=== PATIENT | female | born 1930 | race Caucasian/White ===

== ENCOUNTER 2016-06-23 17:17 | Observation (INO) | payer MEDICARE, OTHER ==
[~2016-06-23] VITALS: Ht 154.9 cm; Wt 59.2 kg
[2016-06-23] VITALS (13 sets, daily range): BP systolic 65–146; BP diastolic 52–79; PULSE 104–134; RESP 16–18; TEMP 98.1; O2SAT 92–98
[~2016-06-23 17:17] MED LIST: ALPR.25 PO; APIX2.5T PO; DOCU100T9 PO; ECOT81TA2 PO; FURO20 PO; KCL20 PO; LEVO.1 PO; METO50TA PO; MIRA33502 PO; MIRT15 PO; PROT40TA PO; SOTA80 PO; TRAM50 PO; ZOFR4TAB3 SL
[2016-06-23] MEDS ORDERED: RANI150T PO (17:44)
[2016-06-23] MEDS ORDERED: LEVO112T2 PO (17:44)
[2016-06-23] MEDS ORDERED: FURO1TAB60 PO (17:44)
[2016-06-23] MEDS ORDERED: APIX5TAB PO (17:44)
[2016-06-23] MEDS ORDERED: CART120C PO (17:44)
[2016-06-23] MEDS ORDERED: WELC625T2 PO (17:44)
[2016-06-23] MEDS ORDERED: POTA1TAB4 PO (17:44)
[2016-06-23] MEDS ORDERED: SODIUM CHLORID 0.9% 500 ML INJ 500 ML IV ONE ×2 (17:45→21:15)
[2016-06-23] MEDS ORDERED: SODIUM CHLORIDE 0.9% FLUSH 10 ML FLUSH IVF PRN (17:45)
[2016-06-23] MEDS ORDERED: DILTIAZEM HCL 25 MG/5 ML VIAL IV ONE ×2 (17:45→18:30)
[2016-06-23] MEDS ORDERED: ASPIRIN 81 MG CHEW TAB PO ONE (17:45)
--- NOTE | 2016-06-23 17:57 | PD ---
HPI Chief Complaint: Cardiac Complaint Time Seen by Provider: 17:28 Travel History International Travel<30 days: No Contact w/Intl Traveler<30days: No Traveled to known affect area: No History of Present Illness HPI Patient is an 85-year-old female with history of hypertension, hyperlipidemia, CHF, A. fib, hypothyroidism, presents to emergency room with complaints of not feeling well for the past month. Patient reports that over the past month, she has been feeling weak and tired, she did follow-up with her primary care doctor , Dr. Hua, and it was discussed with her that her thyroid medications may need to be adjusted, reports that he increased her dose of her thyroid medication. Patient reports that she still has not been feeling well, reports that she has been feeling weak and has been feeling short of breath on exertion. Patient reports that she has noticed nonproductive cough for the past few days, no fevers or chills. Reports that she has not been having any chest pain that she can think of, reports that the band of her bra feels tighter in her left chest and isn't sure if this is chest pain versus pain from her bra. Reports that she went to [facility]'s office yesterday as she was not feeling well and wanted a new ribbon inker as her ribbon inker is in [place] and she is transferring her care to [place]. Reports that she has seen Dr. Andersen in the past but didn't "gel well with him" so she is in the process of having her doctors changed to [facility]. Patient reports that she described her symptoms to the office ladies at [facility], reports that they told her to go to the emergency room for evaluation since her symptoms were significant. Patient reports that she felt fine yesterday but felt worse today and decided to come to the emergency room. Patient reports that overall, she feels weak and tired, denies chest pain but does report intermittent palpitations. Report shortness of breath only on exertion, reports nonproductive cough, no fevers or chills. PFSH Past Medical History Hx Anticoagulant Therapy: Yes Arthritis: Yes Asthma: No Atrial Fibrillation: Yes (flutter RVR) Depression: Yes Heart Rhythm Problems: Yes ( fib) Cancer: No Cardiovascular Problems: Yes High Cholesterol: Yes Chest Pain: No Congestive Heart Failure: Yes COPD: No Cerebrovascular Accident: No Coronary Artery Disease: Yes Diabetes: No Diminished Hearing: No Fibromyalgia: Yes Gastrointestinal Disorders: Yes (COLITIS, RECTAL MASS) GERD: Yes Glaucoma: No Genitourinary: Yes (retention) Headaches: Yes Hepatitis: No Hiatal Hernia: No Heparin Induced Thrombocytopen: No Hypertension: Yes Immune Disorder: No Implanted Vascular Access Dvce: No Kidney Stones: No Medical other: Yes (FIBROMYALGIA) Musculoskeletal: Yes (chronic back pain) Neurologic: No Psychiatric: No Reproductive: No Respiratory: No Immunizations Current: Yes Migraines: No Myocardial Infarction: No Renal Failure: No Seizures: No Sickle Cell Disease: No Sleep Apnea: No Thyroid Disease: Yes Ulcer: No Influenza Vaccination: Yes ?: Not Menopausal: Yes : 2 Para: 2 Past Surgical History Abdominal Surgery: No AICD: No Appendectomy: No Arteriovenous Shunt: No Cardiac Surgery: No Cholecystectomy: No Ear Surgery: No Endocrine Surgery: No Eye Surgery: Yes (cataracts removed giuseppe) Genitourinary Surgery: No Gynecologic Surgery: No Insulin Pump: No Joint Replacement: No Neurologic Surgery: No Oral Surgery: Yes (gingivitis) Pacemaker: No Thoracic Surgery: No Tonsillectomy: Yes Other Surgery: Yes (LIPOMA LEFT ARM) Social History Alcohol Use: Yes (OCCASIONALLY) Tobacco Use: No Substance Use: No Allergies-Medications (Allergen,Severity, Reaction): Coded Allergies: Digoxin (Verified Allergy, Severe, TOXIC, 07/30/15) Tetracycline (Verified Allergy, Intermediate, UNKNOWN, 07/30/15) Codeine (Verified Adverse Reaction, Intermediate, UPSET STOMACH, 07/30/15) Prednisone (Verified Adverse Reaction, Mild, Nausea/Vomiting, 07/30/15) Reported Meds & Prescriptions Reported Meds & Active Scripts Active Reported Ranitidine (Ranitidine HCl) 150 Mg Tab 150 Mg PO BID K-Tab (Potassium Chloride) 20 Meq Tab 20 Meq PO DAILY Levothyroxine (Levothyroxine Sodium) 112 Mcg Tab 112 Mcg PO DAILY Lasix (Furosemide) 40 Mg Tab 40 Mg PO BID Eliquis (Apixaban) 5 Mg Tab 5 Mg PO BID Welchol (Colesevelam HCl) 625 Mg Tab 1,875 Mg PO DAILY Cartia Xt (Diltiazem ER 24 HR) 120 Mg Caper 120 Mg PO DAILY Review of Systems General / Constitutional: No: Fever Eyes: No: Visual changes HENT: No: Headaches Cardiovascular: Positive: Palpitations, Irregular Rhythm, Dyspnea on exertion, No: Chest Pain or Discomfort Respiratory: Positive: Cough, Shortness of Breath Gastrointestinal: No: Abdominal Pain Genitourinary: No: Dysuria Musculoskeletal: No: Pain Skin: No Rash Neurologic: Positive: Weakness Psychiatric: No: Depression Endocrine: No: Polydipsia Hematologic/Lymphatic: No: Easy Bruising Physical Exam Narrative GENERAL: nad, nontoxic SKIN: Focused skin assessment warm/dry. HEAD: Atraumatic. Normocephalic. EYES: Pupils equal and round. No scleral icterus. No injection or drainage. ENT: No nasal bleeding or discharge. Mucous membranes pink and moist. NECK: Trachea midline. No JVD. CARDIOVASCULAR: tachycardic, Irregular rate and rhythm. No murmur appreciated. RESPIRATORY: No accessory muscle use. Clear to auscultation. Breath sounds equal bilaterally. GASTROINTESTINAL: Abdomen soft, non-tender, nondistended. Hepatic and splenic margins not palpable. MUSCULOSKELETAL: No obvious deformities. No clubbing. No cyanosis. No edema. NEUROLOGICAL: Awake and alert. No obvious cranial nerve deficits. Motor grossly within normal limits. Normal speech. PSYCHIATRIC: Appropriate mood and affect; insight and judgment normal. Data Data Last Documented VS Vital Signs Date Time Temp Pulse Resp B/P Pulse Ox O2 Delivery O2 Flow Rate FiO2 06/23/16 20:04 131 17 126/65 96 Room Air 06/23/16 17:36 98.1 Orders B-Type Natriuretic Peptide (06/23/16 17:44) Ckmb (Isoenzyme) Profile (06/23/16 17:44) Complete Blood Count With Diff (06/23/16 17:44) Comprehensive Metabolic Panel (06/23/16 17:44) Magnesium (Mg) (06/23/16 17:44) Prothrombin Time / Inr (Pt) (06/23/16 17:44) Act Partial Throm Time (Ptt) (06/23/16 17:44) Troponin I (06/23/16 17:44) Chest, Single Ap (06/23/16 17:44) Ecg Monitoring (06/23/16 17:44) Iv Access Insert/Monitor (06/23/16 17:44) Oximetry (06/23/16 17:44) Aspirin Chew (Aspirin Chew) (06/23/16 17:45) Sodium Chloride 0.9% Flush (Ns Flush) (06/23/16 17:45) Sodium Chlorid 0.9% 500 Ml Inj (Ns 500 M (06/23/16 17:45) Diltiazem Inj (Cardizem Inj) (06/23/16 17:45) Diltiazem Inj (Cardizem Inj) (06/23/16 18:30) CKMB (06/23/16 17:35) CKMB% (06/23/16 17:35) Vital Signs (Adult) Q15MX4,Q4H (06/23/16 18:39) Cardiac Rhythm STANTON.Q8H (06/23/16 18:39) ^ Notify Dr: Other (06/23/16 18:39) Diltiazem Inj (Cardizem Inj) (06/23/16 18:45) Influenzae A/B Antigen (06/23/16 19:20) Urinalysis - C+S If Indicated (06/23/16 19:27) Admit Order (Ed Use Only) (06/23/16 20:12) Labs Laboratory Tests Test 06/23/16 06/23/16 17:35 19:05 White Blood Count 15.4 TH/MM3 Red Blood Count 4.39 MIL/MM3 Hemoglobin 11.7 GM/DL Hematocrit 35.7 % Mean Corpuscular Volume 81.3 FL Mean Corpuscular Hemoglobin 26.6 PG Mean Corpuscular Hemoglobin 32.8 % Concent Red Cell Distribution Width 16.5 % Platelet Count 325 TH/MM3 Mean Platelet Volume 9.0 FL Neutrophils (%) (Auto) 57.2 % Lymphocytes (%) (Auto) 27.7 % Monocytes (%) (Auto) 8.6 % Eosinophils (%) (Auto) 2.3 % Basophils (%) (Auto) 4.2 % Neutrophils # (Auto) 8.8 TH/MM3 Lymphocytes # (Auto) 4.3 TH/MM3 Monocytes # (Auto) 1.3 TH/MM3 Eosinophils # (Auto) 0.4 TH/MM3 Basophils # (Auto) 0.6 TH/MM3 CBC Comment AUTO DIFF Differential Total Cells 100 Counted Neutrophils % (Manual) 65 % Lymphocytes % 25 % Monocytes % 6 % Eosinophils % 4 % Neutrophils # (Manual) 10.0 TH/MM3 Differential Comment FINAL DIFF MANUAL Platelet Estimate NORMAL Platelet Morphology Comment NORMAL Red Cell Morphology Comment NORMAL Prothrombin Time 10.9 SEC Prothromb Time International 1.0 RATIO Ratio Activated Partial 24.7 SEC Thromboplast Time Sodium Level 138 MEQ/L Potassium Level 4.2 MEQ/L Chloride Level 100 MEQ/L Carbon Dioxide Level 27.7 MEQ/L Anion Gap 10 MEQ/L Blood Urea Nitrogen 17 MG/DL Creatinine 1.00 MG/DL Estimat Glomerular Filtration 53 ML/MIN Rate Random Glucose 97 MG/DL Calcium Level 8.8 MG/DL Magnesium Level 2.5 MG/DL Total Bilirubin 0.4 MG/DL Aspartate Amino Transf 50 U/L (AST/SGOT) Alanine Aminotransferase 39 U/L (ALT/SGPT) Alkaline Phosphatase 107 U/L Total Creatine Kinase 117 U/L Creatine Kinase MB 1.7 NG/ML Troponin I LESS THAN 0.02 NG/ML B-Type Natriuretic Peptide 251 PG/ML Total Protein 7.7 GM/DL Albumin 3.7 GM/DL Urine Collection Type CLEAN CATCH Urine Color YELLOW Urine Turbidity MOD Urine pH 7.0 Urine Specific [place] 1.017 Urine Protein NEG mg/dL Urine Glucose (UA) NEG mg/dL Urine Ketones NEG mg/dL Urine Occult Blood NEG Urine Nitrite POS Urine Bilirubin NEG Urine Leukocyte Esterase SMALL Urine WBC 6-8 /hpf Urine Squamous Epithelial > 8 /hpf Cells Urine Bacteria MANY /hpf Urine Mucus OCC /lpf Microscopic Urinalysis Comment CULTURE INDICATED MDM Medical Decision Making Medical Screen Exam Complete: Yes Emergency Medical Condition: Yes Interpretation(s) EKG at 1721: A flutter at 1 34 bpm, QT/QTc 306/435, st- t wave changes Vital Signs Date Time Temp Pulse Resp B/P Pulse Ox O2 Delivery O2 Flow Rate FiO2 06/23/16 17:36 98.1 134 18 146/79 97 Differential Diagnosis A. fib with RVR, ACS, CHF exacerbation, pneumonia, hypothyroidism, UTI, electrolyte abnormality Narrative Course 85-year-old female who presents to emergency room with generalized complaints of not feeling well for the past month. Patient does have history of A. fib with RVR, she is currently taking diltiazem 120 mg which was changed January by her ribbon inker in [place]. Patient reports that prior to taking diltiazem, she was taking lisinopril, reports that she isn't sure why her ribbon inker changed her from lisinopril to dilatizem. Reports that this is when she really began to feel "not good." Reports that over the past month, she has been feeling more weak and tired, reports dyspnea on exertion. Reports nonproductive cough with no fevers or chills or no sick contacts. EKG in ER: aflutter at 134 - will rate control with IV cardizem Patient has been placed on a monitor and storage bin tender, labs as well as x-ray of the chest ordered. Plan to rate control patient and check her lab work and monitor her while in ER Patient with no response to Cardizem 15 mg (0.25mg/kg initial dose), Cardizem 20mg IV ordered for rate control CBC & BMP Diagram 06/23/16 17:35 Last Impressions Chest X-Ray 06/23/16 1744 Signed Impressions: Service Date/Time: Thursday, June 23, 2016 17:57 - CONCLUSION: No acute findings. Demetrio Whyte MD Critical Care Narrative Aggregate critical care time was 30 minutes. Time to perform other separately billable procedures was not included in the critical care time. My time did not include minutes spent treating any other patients simultaneously or on activities that did not directly contribute to the patient's treatment. The services I provided to this patient were to treat and/or prevent clinically significant deterioration that could result in: , decompensation, deterioration I provided critical care services requiring my management, as noted below: Chart data review, documentation time, medication orders and management, vital sign assessments/reviewing monitor data, ordering and reviewing lab tests, ordering and interpreting/reviewing x-rays and diagnostic studies, care of the patient and discussion of the patient with the admitting physicians. Physician Communication Physician Communication case reviewed with Dr. Valle Diagnosis Primary Impression: Atrial fibrillation with RVR Additional Impression: UTI (urinary tract infection) Qualified Code: N30.00 - Acute cystitis without hematuria Admitting Information Admitting Physician Requests: Admit Sherie Alvarenga DO Jun 23, 2016 17:57 Sherie Alvarenga DO Jun 23, 2016 17:57
[2016-06-23 18:02] LABS: AUTOMATED NEUTROPHIL # 8.8 TH/MM3 (1.8-7.7); BASOPHIL # 0.6 TH/MM3 (0-0.2); BASOPHIL % 4.2 % (0.0-2.0); EOSINOPHIL # 0.4 TH/MM3 (0-0.4); EOSINOPHIL % 2.3 % (0.0-4.0); HEMATOCRIT 35.7 % (35.0-46.0); LYMPH % 27.7 % (9.0-44.0); LYMPHOCYTE # 4.3 TH/MM3 (1.0-4.8); MEAN CELL VOLUME 81.3 FL (80.0-100.0); MEAN CORPUSCULAR HEMOGLOBIN 26.6 PG (27.0-34.0); MEAN CORPUSCULAR HGB CONC 32.8 % (32.0-36.0); MONO % 8.6 % (0.0-8.0); NEUT % 57.2 % (16.0-70.0); PLATELET COUNT 325 TH/MM3 (150-450); RED BLOOD COUNT 4.39 MIL/MM3 (4.00-5.30); RED CELL DISTRIBUTION WIDTH 16.5 % (11.6-17.2); WHITE BLOOD COUNT 15.4 TH/MM3 (4.0-11.0)
[2016-06-23 18:10] LABS: CHLORIDE 100 MEQ/L (98-107); POTASSIUM 4.2 MEQ/L (3.5-5.1); SODIUM (NA) 138 MEQ/L (136-145)
[2016-06-23 18:14] LABS: ANION GAP 10 MEQ/L (5-15); BICARBONATE 27.7 MEQ/L (21.0-32.0); BLOOD UREA NITROGEN 17 MG/DL (7-18); MAGNESIUM 2.5 MG/DL (1.5-2.5)
[2016-06-23 18:15] LABS: APTT (PATIENT) 24.7 SEC (24.3-30.1); PROTHROMBIN TIME - PATIENT 10.9 SEC (9.8-11.6)
[2016-06-23 18:17] LABS: ALT (GPT) 39 U/L (10-53); AST (GOT) 50 U/L (15-37); GLOMERULAR FILTRATION RATE 53 ML/MIN (>89)
[2016-06-23 18:19] LABS: TOTAL BILIRUBIN ADULT 0.4 MG/DL (0.2-1.0)
[2016-06-23 18:20] LABS: ALKALINE PHOSPHATASE 107 U/L (45-117); CREATINE KINASE 117 U/L (26-192)
[2016-06-23 18:22] LABS: HEMO FLAGS AUTO DIFF
[2016-06-23 18:32] LABS: CKMB 1.7 NG/ML (0.5-3.6)
[2016-06-23] MEDS ORDERED: DILTIAZEM INJ 125 MG in SODIUM CHLORIDE 0.9% INJ 100 ML IV SCH (18:45)
[2016-06-23 18:51] LABS: EOSINOPHILS 4 % (0-4); POLYS (SEG NEUTROPHILS) 65 % (16-70); WBC DIFF SAMPLE 100
[2016-06-23 18:52] LABS: PLATELET ESTIMATE SMEAR NORMAL (NORMAL); PLATELET MORPHOLOGY NORMAL (NORMAL); SCAN/DIFF FINAL DIFF MANUAL
--- NOTE | 2016-06-23 19:01 | RADHPO ---
EXAM DATE/TIME: 06/23/2016 17:57 [facility] COMPARISON: CHEST SINGLE AP, June 18, 2015, 13:36. INDICATIONS : Chest pressure. Short of breath. MEDICAL HISTORY : Congestive heart failure. Hypertension. A-fib. Coronary artery disease. SURGICAL HISTORY : None. ENCOUNTER: Initial ACUITY: 1 day PAIN SCORE: 2/10 LOCATION: Bilateral chest FINDINGS: A single view of the chest demonstrates the lungs to be symmetrically aerated without evidence of mas s, infiltrate or effusion. The cardiomediastinal contours are unremarkable. Vertebroplasty cement i n the upper lumbar vertebral body.. CONCLUSION: No acute findings. Demetrio Whyte MD on June 23, 2016 at 18:59 Board Certified Radiologist. This report was verified electronically.
[2016-06-23 20:06] LABS: BLOOD, URINE NEG (NEG); GLUCOSE,URINE NEG (NEG); KETONE, URINE NEG (NEG)
[2016-06-23 20:16] LABS: NITRITE,URINE POS (NEG)
[2016-06-23 20:18] LABS: METHOD OF COLLECTION CLEAN CATCH; URINE COLOR YELLOW (YELLW/STRAW)
[2016-06-23 20:19] LABS: BACTERIA, URINE MANY /hpf; SQUAMOUS EPITHELIAL CELL URINE > 8 /hpf (0-5)
[2016-06-23 20:20] LABS: MUCUS URINE OCC /lpf (OCC)
[2016-06-23 20:21] LABS: COMMENT (UR) CULTURE INDICATED; CULTURE IF INDICATED CULTURE INDICATED
[2016-06-23] MEDS ORDERED: NALOXONE HCL 0.4 MG/ML AMP IV PRN (20:30)
[2016-06-23] MEDS ORDERED: cefTRIAXone INJ 1,000 MG in SODIUM CHLORIDE 0.9% INJ 100 ML IV ONE (20:30)
[2016-06-23] MEDS ORDERED: SODIUM CHLORIDE 0.9% FLUSH 10 ML FLUSH IV FLUSH PRN (20:30)
[2016-06-23] MEDS ORDERED: ENOXAPARIN SODIUM 40 MG/0.4 ML SYRINGE SQ SCH (20:30)
[2016-06-23] MEDS ORDERED: ACETAMINOPHEN 325 MG TAB PO PRN (20:30)
[2016-06-23] MEDS: FUROSEMIDE 40 MG TAB PO SCH (21:00)
[2016-06-23] MEDS ORDERED: METOPROLOL TARTRATE 5 MG/5 ML VIAL IV PUSH ONE ×2 (21:15→21:45)
[2016-06-23] MEDS: FAMOTIDINE 20 MG TAB PO SCH (21:43)
[2016-06-23] MEDS: SODIUM CHLORIDE 0.9% FLUSH 10 ML FLUSH IV FLUSH SCH (21:47)
[2016-06-23] MEDS: APIXABAN 5 MG TABLET PO SCH (21:52)
[2016-06-23] MEDS ORDERED: AMIODARONE INJ 900 MG in D5W 500 ML (EXCEL BAG) 482 ML IV SCH (22:15)
[2016-06-23] MEDS ORDERED: AMIODARONE INJ 300 MG in DEXTROSE 5% IN WATER 100ML INJ 97 ML IV ONE ×2 (22:15)
--- NOTE | 2016-06-23 23:37 | EKG ---
Date Performed: 06/23/2016 Time Performed: 21:12:34 PTAGE: 85 years EKG: Possible atrial flutter with rapid ventricular response. Right bundle branch block LVH with secondary repolarization abnormality Abnormal ECG PREVIOUS TRACING : 06/23/2016 17.21 DOCTOR: Leo Pickard Interpretating Date/Time 06/23/2016 23:37:02
--- NOTE | 2016-06-23 23:37 | EKG ---
Date Performed: 06/23/2016 Time Performed: 21:32:36 PTAGE: 85 years EKG: CONSIDER ACUTE ST ELEVATION [place] Atrial flutter with rapid ventricular response with 2:1 A-V block. LVH with secondary repolarization abnormality Inferior ST elevation, CONSIDER ACUTE IN FARCT Abnormal ECG PREVIOUS TRACING : 06/23/2016 21.12 DOCTOR: Leo Pickard Interpretating Date/Time 06/23/2016 23:35:27
--- NOTE | 2016-06-23 23:54 | EKG ---
Date Performed: 06/23/2016 Time Performed: 17:21:40 PTAGE: 85 years EKG: Atrial flutter with rapid ventricular response with 2:1 A-V block. Left ventricular hypertr ophy Extensive ST-T changes are probably due to ventricular hypertrophy Abnormal ECG PREVIOUS TRACING : 06/19/2015 05.49 DOCTOR: Leo Pickard Interpretating Date/Time 06/23/2016 23:53:47
[2016-06-24] VITALS (27 sets, daily range): BP systolic 87–108; BP diastolic 46–80; PULSE 104–122; RESP 16–18; TEMP 97.3–98.8; O2SAT 93–100
[2016-06-24] MEDS: AMIODARONE INJ 450 MG in D5W (EXCEL BAG) 241 ML IV SCH ×2 (04:58→19:59)
[2016-06-24 06:57] LABS: BICARBONATE 22.5 MEQ/L (21.0-32.0); POTASSIUM 3.9 MEQ/L (3.5-5.1)
[2016-06-24 07:13] LABS: AUTOMATED NEUTROPHIL # 6.2 TH/MM3 (1.8-7.7); BASOPHIL # 0.1 TH/MM3 (0-0.2); BASOPHIL % 1.1 % (0.0-2.0); EOSINOPHIL # 0.1 TH/MM3 (0-0.4); EOSINOPHIL % 1.3 % (0.0-4.0); HEMATOCRIT 32.5 % (35.0-46.0); HEMO FLAGS DIFF FINAL; LYMPH % 21.6 % (9.0-44.0); MEAN CELL VOLUME 81.5 FL (80.0-100.0); MEAN CORPUSCULAR HEMOGLOBIN 26.3 PG (27.0-34.0); MEAN CORPUSCULAR HGB CONC 32.3 % (32.0-36.0); MONO % 9.3 % (0.0-8.0); NEUT % 66.7 % (16.0-70.0); PLATELET COUNT 348 TH/MM3 (150-450); RED BLOOD COUNT 3.98 MIL/MM3 (4.00-5.30); RED CELL DISTRIBUTION WIDTH 17.6 % (11.6-17.2); WHITE BLOOD COUNT 9.2 TH/MM3 (4.0-11.0)
[2016-06-24] MEDS: LEVOTHYROXINE SODIUM 112 MCG TAB PO SCH (07:30)
[2016-06-24] MEDS: FUROSEMIDE 40 MG TAB PO SCH ×2 (08:37→20:26)
[2016-06-24] MEDS: APIXABAN 5 MG TABLET PO SCH (08:38)
[2016-06-24] MEDS: SODIUM CHLORIDE 0.9% FLUSH 10 ML FLUSH IV FLUSH SCH ×2 (08:38→20:25)
[2016-06-24] MEDS: FAMOTIDINE 20 MG TAB PO SCH ×2 (08:38→20:26)
[2016-06-24] MEDS: POTASSIUM CHLORIDE 20 MEQ CONTROLLED RELEASE TAB PO SCH (08:38)
--- NOTE | 2016-06-24 11:09 | HHI.HP ---
HPI Service [facility] Primary [facility] Physician Malachi Hua MD Admission Diagnosis Afib with RVR Diagnoses: Chief Complaint: Fatigue Shortness of breath Chest pain (Cherelle Montilla) Travel History International Travel<30 Days: No Contact w/Intl Traveler <30 Da: No Traveled to Known Affected Are: No (Cherelle Montilla) History of Present Illness This is an 85-year-old elderly female with significant PMHx of CHF, afibrillation, HTN. Patient presented to the emergency room with complaints of generalized malaise, indicates she has felt poorly very fatigued. She went to see her primary care on 2 different occasions, the first time in March and then in April. Initially Dr. Hua that it was due to her thyroid and adjusted her Synthroid from 100 g to 112. Prior to this visit, patient had followed up with her mail distributor in [place] and he had started her on diltiazem. Patient believes that the diltiazem is what's making her weak. She has noted shortness of breath on exertion, she has felt some chest discomfort as if her bra feels a little tighter. She has not felt any palpitations. She has felt more tired than usual, denies any fever, no chills. No cough, no sputum production. She has been checking her blood pressure at home and has noted that it was running around 120s. However her noted that her heart rate was running up to 130s. She doesn't have a formal mail distributor in the area but approximately a year ago she did see Dr. Andersen while she was in the hospital but never followed up with him as OP. Most recently she had gone to the [facility] and was trying to establish herself with one of their physicians and had filled out paperwork to have her records sent from [place]. In the emergency room, patient was evaluated and EKG done showed a flutter at 131 heart rate. Patient was given Lopressor 5 mg IV [address] Graham who was covering for the [facility] was contacted and requested amiodarone 300 mg IV bolus along with amiodarone drip and Cardizem drip. Patient was transferred from the [facility] to the [facility]. Patient was noted with drop in blood pressure to 88/50 therefore the Cardizem drip was held. Patient did receive a fluid bolus in the emergency room as her blood pressure continued to drop to 71/45. Heart rate is sinus but still tachycardic down to 119. She is currently on amiodarone drip. Laboratory workup was completed, significant for WBC of 15.4 which is now down to 9.2. Basic metabolic panel was unremarkable. B natruretic peptide was 251. Urinalysis was positive for nitrates, leukocyte esterase and bacteria. Culture is pending. Patient received Rocephin. Patient is admitted for further evaluation and treatment. (Cherelle Montilla) Review of Systems Constitutional: COMPLAINS OF: Fatigue, DENIES: Diaphoretic episodes, Fever, Weight gain, Weight loss, Chills, Dizziness, Change in appetite, Night Sweats Endocrine: DENIES: Abnorml menstrual pattern, Heat/cold intolerance, Polydipsia , Polyuria, Polyphagia Eyes: DENIES: Blurred vision, Diplopia, Eye inflammation, Eye pain, Vision loss , Photosensitivity, Double Vision Ears, nose, mouth, throat: DENIES: Tinnitus, Hearing loss, Vertigo, Nasal discharge, Oral lesions, Throat pain, Hoarseness, Ear Pain, Running Nose, Epistaxis, Sinus Pain, Toothache, Odynophagia Respiratory: DENIES: Apneas, Cough, Snoring, Wheezing, Hemoptysis, Sputum production, Shortness of breath Cardiovascular: COMPLAINS OF: Chest pain, Dyspnea on Exertion, DENIES: Palpitations, Syncope, PND, Lower Extremity Edema, Orthopnea, Claudication Gastrointestinal: COMPLAINS OF: Constipation, DENIES: Abdominal pain, Black stools, Bloody stools, Diarrhea, Nausea, Vomiting, Difficulty Swallowing, Anorexia Genitourinary: DENIES: Abnormal vaginal bleeding, Dysmenorrhea, Dyspareunia, Sexual dysfunction, Urinary frequency, Urinary incontinence, Urgency, Hematuria , Dysuria, Nocturia, Vaginal discharge Musculoskeletal: DENIES: Joint pain, Muscle aches, Stiffness, Joint Swelling, Back pain, Neck pain Integumentary: DENIES: Abnormal pigmentation, Pruritus, Rash, Nail changes, Breast masses, Breast skin changes, Nipple discharge Hematologic/lymphatic: DENIES: Bruising, Lymphadenopathy Immunologic/allergic: DENIES: Eczema, Urticaria Neurologic: DENIES: Abnormal gait, Headache, Localized weakness, Paresthesias, Seizures, Speech Problems, Tremor, Poor Balance Psychiatric: DENIES: Anxiety, Confusion, Mood changes, Depression, Hallucinations, Agitation, Suicidal Ideation, Homicidal Ideation, Delusions ( Cherelle Montilla) Past Family Social History Past Medical History Atrial fibrillation Acute kidney injury in the past CHF Chronic anticoagulation Colitis Constipation Chronic back pain Hypothyroid Hyperlipidemia Hypertension GERD Past Surgical History Kyphoplasty 2, lipoma removed from arm, biopsy of right breast benign, tonsillectomy as a child Cataract surgery Reported Medications Reported Meds & Active Scripts Active Reported Ranitidine (Ranitidine HCl) 150 Mg Tab 150 Mg PO BID K-Tab (Potassium Chloride) 20 Meq Tab 20 Meq PO DAILY Levothyroxine (Levothyroxine Sodium) 112 Mcg Tab 112 Mcg PO DAILY Lasix (Furosemide) 40 Mg Tab 40 Mg PO BID Eliquis (Apixaban) 5 Mg Tab 5 Mg PO BID Welchol (Colesevelam HCl) 625 Mg Tab 1,875 Mg PO DAILY Cartia Xt (Diltiazem ER 24 HR) 120 Mg Caper 120 Mg PO DAILY (Cherelle Montilla) Allergies: Coded Allergies: Digoxin (Verified Allergy, Severe, TOXIC, 07/30/15) Tetracycline (Verified Allergy, Intermediate, UNKNOWN, 07/30/15) Codeine (Verified Adverse Reaction, Intermediate, UPSET STOMACH, 07/30/15) Prednisone (Verified Adverse Reaction, Mild, Nausea/Vomiting, 07/30/15) Active Ordered Medications Inpatient Medications Acetaminophen (Tylenol) 650 mg Q4H PRN PO TEMP > 100.4; Start 06/23/16 at 20:30 Amiodarone HCl 300 mg/Dextrose 103 ml @ 100 mls/hr ONCE ONCE IV Last administered on 06/23/16 22:40; Start 06/23/16 at 22:15; Stop 06/23/16 at 23:16; Status DC Amiodarone HCl 900 mg/Dextrose 500 ml @ 0 mls/hr CONTINUOUS IV ; Start 06/23/16 at 22:15; Stop 06/24/16 at 04:35; Status DC Amiodarone HCl/ Dextrose (Cordarone Inj/ D5W (Sheldon) Inj) 250 ml @ 0 mls/hr CONTINUOUS IV Last administered on 06/24/16 04:58; Start 06/24/16 at 05:00 Apixaban (Eliquis) 5 mg BID PO Last administered on 06/24/16 08:38; Start at 21:00 Aspirin (Aspirin Chew) 162 mg ONCE ONCE PO Last administered on 06/23/16 18:03 ; Start 06/23/16 at 17:45; Stop 06/23/16 at 17:46; Status DC Ceftriaxone Sodium/Sodium Chloride (Rocephin Inj/NS Inj) 100 ml @ 200 mls/hr ONCE ONCE IV Last administered on 06/23/16 22:50; Start 06/23/16 at 20:30; Stop 06/23/16 at 20:59; Status DC Colesevelam HCl (Welchol) 1,875 mg DAILY PO ; Start 06/24/16 at 09:00 Diltiazem HCl (Cardizem Inj) 15 mg ONCE ONCE IV Last administered on 06/23/16 18:04; Start 06/23/16 at 17:45; Stop 06/23/16 at 17:46; Status DC Diltiazem HCl 125 mg/Sodium Chloride 125 ml @ 0 mls/hr TITRATE IV Last administered on 06/23/16 20:02; Start 06/23/16 at 18:45 Diltiazem HCl 20 mg 20 mg ONCE ONCE IV Last administered on 06/23/16 18:27; Start 06/23/16 at 18:30; Stop 06/23/16 at 18:31; Status DC Enoxaparin Sodium (Lovenox Inj) 40 mg Q24H SQ ; Start 06/23/16 at 20:30; Stop 06/23/16 at 20:30; Status DC Famotidine 20 mg 20 mg BID PO Last administered on 06/24/16 08:38; Start at 21:00 Furosemide (Lasix) 40 mg BID PO Last administered on 06/24/16 08:37; Start 06/23 at 21:00 Levothyroxine Sodium (Synthroid) 112 mcg DAILY@06 PO Last administered on 07:30; Start 06/24/16 at 06:00 Metoprolol Tartrate 5 mg 5 mg ONCE ONCE IV PUSH Last administered on 06/23/16 21:46; Start 06/23/16 at 21:45; Stop 06/23/16 at 21:46; Status DC Naloxone HCl (Narcan Inj) 0.4 mg UNSCH PRN IV SEE LABEL COMMENTS; Start at 20:30 Ondansetron HCl (Zofran Inj) 4 mg Q6H PRN IVP NAUSEA OR VOMITING; Start at 20:30 Potassium Chloride (KCl) 20 meq DAILY PO Last administered on 06/24/16 08:38; Start 06/24/16 at 09:00 Sodium Chloride (NS 500 ml Inj) 500 ml @ 500 mls/hr BOLUS ONCE IV Last administered on 06/23/16 21:19; Start 06/23/16 at 21:15; Stop 06/23/16 at 22:14; Status DC Sodium Chloride (NS Flush) 2 ml BID IV FLUSH Last administered on 06/24/16 08: 38; Start 06/23/16 at 21:00 Family History Father at 79 of lung cancer Mother at 45 of CVA Brother also diagnosed with atrial fibrillation Social History Patient is a part-time resident of [place], lives in [place]. Lives at home with her Denies tobacco use or illicit drug use Reports occasional glass of wine 2-3 times per month (Cherelle Montilla) Physical Exam Vital Signs Vital Signs Date Time Temp Pulse Resp B/P Pulse Ox O2 Delivery O2 Flow Rate FiO2 06/24/16 08:15 97.7 120 18 89/66 99 06/24/16 07:01 120 06/24/16 06:00 118 06/24/16 05:00 120 06/24/16 04:00 120 06/24/16 03:00 99/80 06/24/16 03:00 120 06/24/16 03:00 121 06/24/16 02:15 122 99/80 99 06/24/16 01:45 117 16 108/59 06/24/16 01:06 98.8 119 16 106/64 98 Nasal Cannula 06/24/16 00:29 104 18 87/46 98 Nasal Cannula 2 06/23/16 23:20 112 16 71/53 98 Nasal Cannula 06/23/16 23:16 120 16 98/56 98 Nasal Cannula 06/23/16 23:10 114 18 65/53 97 Nasal Cannula 06/23/16 23:10 104 18 66/54 96 Nasal Cannula 06/23/16 23:00 121 17 99/53 92 Room Air 06/23/16 22:40 127 18 88/52 94 Room Air 06/23/16 21:54 128 17 118/58 95 Room Air 06/23/16 21:40 129 16 118/66 95 Room Air 06/23/16 21:20 Room Air 06/23/16 21:20 131 17 123/60 95 Room Air 06/23/16 20:04 131 17 126/65 96 Room Air 06/23/16 19:00 Room Air 06/23/16 18:31 130 18 101/57 95 Room Air 06/23/16 18:13 132 18 124/68 95 Room Air 06/23/16 18:12 18 97 Room Air 06/23/16 17:36 98.1 134 18 146/79 97 Physical Exam GENERAL: This is a well-nourished, well-developed patient, in no apparent distress. SKIN: No rashes, ecchymoses or lesions. Cool and dry. HEAD: Atraumatic. Normocephalic. No temporal or scalp tenderness. EYES: Pupils equal round and reactive. Extraocular motions intact. No scleral icterus. No injection or drainage. ENT: Nose without bleeding, purulent drainage or septal hematoma. Throat without erythema, tonsillar hypertrophy or exudate. Uvula midline. Airway patent. NECK: Trachea midline. No JVD or lymphadenopathy. Supple, nontender, no meningeal signs. CARDIOVASCULAR: S1 and S2, sinus tachycardia. No murmurs, no rubs, no gallops. RESPIRATORY: Clear to auscultation. Breath sounds equal bilaterally. No wheezes , rales, or rhonchi. GASTROINTESTINAL: Abdomen soft, non-tender, nondistended. No hepato-splenomegaly , or palpable masses. No guarding. MUSCULOSKELETAL: Extremities without clubbing, cyanosis, or edema. Pedal pulses 2+ bilateral No joint tenderness, effusion, or edema noted. No calf tenderness. Negative Homans sign bilaterally. NEUROLOGICAL: Awake and alert. Cranial nerves II through XII intact. Motor and sensory grossly within normal limits. Five out of 5 muscle strength in all muscle groups. Normal speech. Laboratory Laboratory Tests Test 06/23/16 06/23/16 06/23/16 06/24/16 17:35 19:05 22:12 05:15 White Blood Count 15.4 9.2 Red Blood Count 4.39 3.98 Hemoglobin 11.7 10.5 Hematocrit 35.7 32.5 Mean Corpuscular Volume 81.3 81.5 Mean Corpuscular Hemoglobin 26.6 26.3 Mean Corpuscular Hemoglobin 32.8 32.3 Concent Red Cell Distribution Width 16.5 17.6 Platelet Count 325 348 Mean Platelet Volume 9.0 8.9 Neutrophils (%) (Auto) 57.2 66.7 Lymphocytes (%) (Auto) 27.7 21.6 Monocytes (%) (Auto) 8.6 9.3 Eosinophils (%) (Auto) 2.3 1.3 Basophils (%) (Auto) 4.2 1.1 Neutrophils # (Auto) 8.8 6.2 Lymphocytes # (Auto) 4.3 2.0 Monocytes # (Auto) 1.3 0.9 Eosinophils # (Auto) 0.4 0.1 Basophils # (Auto) 0.6 0.1 CBC Comment AUTO DIFF DIFF FINAL Differential Total Cells 100 Counted Neutrophils % (Manual) 65 Lymphocytes % 25 Monocytes % 6 Eosinophils % 4 Neutrophils # (Manual) 10.0 Differential Comment FINAL DIFF MANUAL Platelet Estimate NORMAL Platelet Morphology Comment NORMAL Red Cell Morphology Comment NORMAL Prothrombin Time 10.9 Prothromb Time International 1.0 Ratio Activated Partial 24.7 Thromboplast Time Sodium Level 138 139 Potassium Level 4.2 3.9 Chloride Level 100 107 Carbon Dioxide Level 27.7 22.5 Anion Gap 10 10 Blood Urea Nitrogen 17 16 Creatinine 1.00 0.88 Estimat Glomerular Filtration 53 61 Rate Random Glucose 97 99 Calcium Level 8.8 7.9 Magnesium Level 2.5 Total Bilirubin 0.4 Aspartate Amino Transf 50 (AST/SGOT) Alanine Aminotransferase 39 (ALT/SGPT) Alkaline Phosphatase 107 Total Creatine Kinase 117 66 Creatine Kinase MB 1.7 Troponin I LESS THAN 0.02 0.02 B-Type Natriuretic Peptide 251 Total Protein 7.7 Albumin 3.7 Urine Collection Type CLEAN CATCH Urine Color YELLOW Urine Turbidity MOD Urine pH 7.0 Urine Specific [place] 1.017 Urine Protein NEG Urine Glucose (UA) NEG Urine Ketones NEG Urine Occult Blood NEG Urine Nitrite POS Urine Bilirubin NEG Urine Leukocyte Esterase SMALL Urine WBC 6-8 Urine Squamous Epithelial > 8 Cells Urine Bacteria MANY Urine Mucus OCC Microscopic Urinalysis Comment CULTURE INDICATED Date/Time Procedure Status Source Growth 06/23/16 21:00 Aerobic Blood Culture Received Blood Peripheral Pending 06/23/16 21:00 Anaerobic Blood Culture Received Blood Peripheral Pending 06/23/16 20:00 Influenza Types A,B Antigen (BERNIE) - Final Complete Nasal Aspirate NEGATIVE FOR FLU A AND B ANTIGEN.... 06/23/16 19:05 Urine Culture - Preliminary Resulted Urine Clean Catch Gram Negative Brodie (Cherelle Montilla) Result Diagram: 06/24/16 0515 06/24/16 0515 Imaging Last Impressions Chest X-Ray 06/23/164 Signed Impressions: Service Date/Time: Saturday, June 23, 2016 17:57 - CONCLUSION: No acute findings. Demetrio Whyte MD (Cherelle Motnilla) Assessment and Plan Problem List: (1) Atrial fibrillation with RVR (2) UTI (urinary tract infection) (3) HTN (hypertension) (4) CKD (chronic kidney disease) (5) Anxiety disorder, unspecified (6) Fibromyalgia (7) Hypothyroidism (8) Leukocytosis (9) Chronic CHF Assessment and Plan Admit to Dr. Valle 85-year-old elderly female with significant past medical history hypertension, CHF, chronic A. fib. Presented to the emergency room complaining of feeling more fatigued, chest tightness with mild shortness of breath. Found with A. fib , a flutter with RVR. -Consult cardiology Continuous cardiac telemetry Continue with amiodarone drip Continue with Eliquis Leukocytosis, etiology unclear, possibly secondary to stress response Monitor CBC Monitor for any fever Chronic CHF, stable. Patient does not appear to be in fluid overload, lungs are clear. Continue with Lasix 40 mg by mouth twice a day Monitor intake and output Hypothyroid Continue with home medications Fibromyalgia, stable Continue to monitor Chronic kidney disease, stage III, stable Avoid nephrotoxic agents Monitor renal function Home medications reviewed, initiated as indicated Pepcid for GI prophylaxis Eliquis for DVT prophylaxis Plan of care has been discussed with the patient, attending and registered nurse. Further management of the patient will be dependent hospital course This patient was seen by myself and Dr. 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 In the case of services not specified as inpatient-only, they are appropriately provided as inpatient services in accordance with the 2-midnight benchmark. Estimated LOS (days): 2 2 days is the estimated time the patient will need to remain in the hospital, assuming treatment plan goals are met and no additional complications. Post-Hospital Plan: Home Health (Cherelle Montilla) Problem Qualifiers (1) UTI (urinary tract infection): Qualified Code: N30.00 - Acute cystitis without hematuria (2) HTN (hypertension): Qualified Code: I10 - Essential hypertension (3) CKD (chronic kidney disease): Qualified Code: N18.3 - CKD (chronic kidney disease), stage 3 (moderate) (4) Hypothyroidism: Qualified Code: E03.9 - Hypothyroidism, unspecified type (5) Leukocytosis: Qualified Code: D72.829 - Leukocytosis, unspecified type (6) Chronic CHF: Qualified Code: I50.9 - Chronic congestive heart failure, unspecified congestive heart failure type Cherelle Montilla Jun 24, 2016 11:09 Coy Valle MD Jun 24, 2016 19:46
[2016-06-24] MEDS: COLESEVELAM HCL 625 MG TAB PO SCH (11:27)
[2016-06-24] MEDS: ONDANSETRON HCL 4 MG/2 ML VIAL IVP PRN ×2 (12:21→21:47)
--- NOTE | 2016-06-24 22:00 | MB ---
cc: URSZULA DOTY M.D. DATE OF CONSULTATION 06/24/2016 REASON FOR CONSULTATION Atrial flutter with rapid ventricular response unable to control with medication. I was called yesterday by Dr. Alvarenga about Mrs. Romo. She is an 85-year-old female with history of hyperlipidemia, high blood pressure, atrial flutter, CHF, hypothyroidism that medication was managed by primary doctor. She has seen a previous doctor and then new . She was transferring to [place] for further management. She saw in the past Dr. Andersen. She was on Cardizem and digoxin. She went to the emergency room with atrial flutter with rapid ventricular response. Heart rate unable to control with medication. She was put on digoxin, beta yimi and Cardizem. At last amiodarone was added. Despite that the heart rate was around 130 beats per minute. I was consulted for further evaluation and management. The chart was reviewed. The patient was evaluated. ALLERGIES DIGOXIN, TETRACYCLINE, CODEINE AND PREDNISONE. SOCIAL HISTORY She denies smoking. Drinks occasionally. FAMILY HISTORY Noncontributory to her current medical condition. MEDICATIONS At home she was on: 1. Ranitidine. 2. Levoxyl. 3. Lasix. 4. Eliquis. 5. Cartia. Currently in the hospital: Amiodarone was added as well as Cardizem IV. REVIEW OF SYSTEMS Currently she refers shortness of breath and palpitation. No chest pain or chest discomfort. She had a stress test around 10 years ago that was negative. PHYSICAL EXAMINATION GENERAL: Alert and fully oriented. VITAL SIGNS: Blood pressure is 89/66, pulse on the telemetry is 130 currently. CARDIOVASCULAR: S1-S2. Tachycardic. ABDOMEN: Soft. No mass. No bruits. EXTREMITIES: No edema. Electrocardiogram showed classic atrial flutter. LABORATORY DATA Hemoglobin is 10.5, white blood cell 9.2. Potassium 3.9, creatinine 0.88. Troponin less than 0.02. INR 1.0. ASSESSMENT AND RECOMMENDATIONS Mrs. Romo's heart rate is very difficult to control. She is in atrial flutter. She failed multiple medications. There is an issue about the thyroid function. Apparently her thyroid was modified by the primary doctor. At this point I am going to order also a TSH. I am going to stop the Eliquis. Electrophysiology study and atrial flutter ablation discussed extensively with her. Risks include pneumothorax, cardiac perforation, stroke and even . She understood and agreed to proceed. Last Eliquis dose was this morning. That means it will be tomorrow afternoon before we can proceed with ablation. Also a 2-D echo will be ordered to evaluate wall motion and valvular function. MD EDDIE Akbar/SHIRAZ /12:30 PM /9:43 PM
[2016-06-25] VITALS (24 sets, daily range): BP systolic 102–148; BP diastolic 61–87; PULSE 75–122; RESP 16–18; TEMP 97.6–98.1; O2SAT 94–98
[2016-06-25] MEDS: LEVOTHYROXINE SODIUM 112 MCG TAB PO SCH (05:32)
[2016-06-25] MEDS: cefTRIAXone INJ 1,000 MG in SODIUM CHLORIDE 0.9% INJ 100 ML IV SCH (08:19)
[2016-06-25] MEDS: FAMOTIDINE 20 MG TAB PO SCH ×2 (08:20→21:48)
[2016-06-25] MEDS: COLESEVELAM HCL 625 MG TAB PO SCH (08:20)
[2016-06-25] MEDS: POTASSIUM CHLORIDE 20 MEQ CONTROLLED RELEASE TAB PO SCH (08:20)
[2016-06-25] MEDS: SODIUM CHLORIDE 0.9% FLUSH 10 ML FLUSH IV FLUSH SCH ×2 (08:21→21:48)
[2016-06-25] MEDS: FUROSEMIDE 40 MG TAB PO SCH ×2 (08:21→21:00)
--- NOTE | 2016-06-25 10:36 | HHI.PR ---
Subjective Interval History awake alert sitting in bed appears comfortable still tachycardic awaiting procedure this afternoon no family at bed side Vitals/Results Intake & Output 06/24/16 06/24/16 06/25/16 15:00 23:00 07:00 Intake Total 565 ml 240 ml Output Total 500 ml Balance 565 ml -260 ml Intake Oral 360 ml 240 ml IV Total 205 ml Output Urine Total 500 ml # Voids 3 # Bowel Movements 1 1 Vital Signs Vital Signs Date Time Temp Pulse Resp B/P Pulse Ox O2 Delivery O2 Flow Rate FiO2 06/25/16 09:01 120 06/25/16 08:01 98.0 120 18 135/81 97 06/25/16 08:00 118 06/25/16 07:00 109 06/25/16 06:26 116 06/25/16 05:00 116 06/25/16 04:00 118 06/25/16 03:00 97.6 119 102/76 98 06/25/16 03:00 109 06/25/16 02:00 118 06/25/16 01:00 118 06/25/16 00:00 116 06/24/16 23:00 97.3 117 107/67 93 06/24/16 23:00 117 06/24/16 22:00 118 06/24/16 21:00 114 06/24/16 20:00 118 06/24/16 19:00 119 06/24/16 19:00 97.8 119 107/80 100 06/24/16 17:01 118 06/24/16 16:01 116 06/24/16 15:30 97.7 118 18 97/71 95 06/24/16 15:00 120 06/24/16 14:01 119 06/24/16 13:00 120 06/24/16 12:00 120 06/24/16 11:15 97.8 118 18 96/67 97 06/24/16 11:00 120 CBC/BMP: 06/24/16 0515 06/24/16 0515 Physical Exam General General Appearance: Well Developed, Well Nourished, No Acute Distress Eyes Eye Exam: Pupils Equal, Pupils Reactive Throat Throat Exam: Oral Mucosa [place] & Moist Neck Neck Exam: Neck Supple, Trachea Midline Pulmonary Resp Exam: Clear Bilaterally, Breath Sounds Equal, No Distress Cardiology CV Exam: Regular, Tachycardia Gastrointestinal/Abdomen GI Exam: Soft, Non-Tender, Bowel Sounds Present Musculoskeletal MS Exam: Joints Intact, Normal Gait, Normal Tone, Good Strength Integumentary Skin Exam: Clear, Warm, Dry, Intact Extremeties Extremities Exam: No Edema Neurologic Neuro Exam: Alert, Awake, Oriented Psychiatric Psych Exam: Appropriate Responses Assessment/Plan Assessment/Plan Assessment and Plan Assessment and Plan Problem List: (1) Atrial fibrillation with RVR (2) UTI (urinary tract infection) (3) HTN (hypertension) (4) CKD (chronic kidney disease) (5) Anxiety disorder, unspecified (6) Fibromyalgia (7) Hypothyroidism (8) Leukocytosis (9) Chronic CHF Assessment and Plan Admit to Dr. Valle 85-year-old elderly female with significant past medical history hypertension, CHF, chronic A. fib. Presented to the emergency room complaining of feeling more fatigued, chest tightness with mild shortness of breath. Found with A. fib , a flutter with RVR. Appreciate Cardiology input, plan for ablation today, Eliquis held Continuous cardiac telemetry Continue with amiodarone drip Still tachycardic Leukocytosis, ? likely sec to UTI Culture growing GNR on Rocephin leucocytosis resolved Chronic CHF, stable. Patient does not appear to be in fluid overload, lungs are clear. Continue with Lasix 40 mg by mouth twice a day Monitor intake and output Hypothyroid Continue with home medications Fibromyalgia, stable Continue to monitor Chronic kidney disease, stage III, stable Avoid nephrotoxic agents Monitor renal function Home medications reviewed, initiated as indicated Pepcid for GI prophylaxis Eliquis for DVT prophylaxis discussed with patient labs in Yesenia Falcon MD Jun 25, 2016 10:36
[2016-06-25] MEDS: AMIODARONE INJ 450 MG in D5W (EXCEL BAG) 241 ML IV SCH (11:51)
--- NOTE | 2016-06-25 16:30 | EC ---
Study Study Date:06/25/2016 STUDY CONCLUSIONS SUMMARY - Left ventricle: The cavity size was normal. Wall thickness was increased in a pattern of mild LVH. Systolic function was moderately to severely reduced. The estimated ejection fraction was in the range of 30% to 35%. Diffuse hypokinesis. - Aortic valve: Mild to moderate regurgitation. Valve area: 1.37cm^2(VTI). Valve area: 1.18cm^2 (Vmax). - Mitral valve: Mildly calcified annulus. Mild to moderate regurgitation directed centrally. - Left atrium: The atrium was mildly dilated. - Tricuspid valve: Moderate regurgitation. - Pulmonary arteries: Systolic pressure was mildly to moderately increased. PA peak pressure: 59mm Hg (S). If LV function is below 40, please consider prescribing an ACEI or ARB or document rationale for non-use. PROCEDURE DATA STUDY STATUS: Elective. Procedure: Transthoracic echocardiography. Image quality was good. Scanning was performed from the parasternal, apical, and subcostal acoustic windows. Study completion: The patient tolerated the procedure well. Transthoracic echocardiography. M-mode, complete 2D, complete spectral Doppler, and color Doppler. Patient status: Inpatient. CARDIAC ANATOMY LEFT VENTRICLE: The cavity size was normal. Wall thickness was increased in a pattern of mild LVH. Systolic function was moderately to severely reduced. The estimated ejection fraction was in the range of 30% to 35%. Diffuse hypokinesis. AORTIC VALVE: Trileaflet; mildly thickened, mildly calcified leaflets. Doppler: Transvalvular velocity was within the normal range. There was no stenosis. Mild to moderate regurgitation. Valve area: 1.37cm^2(VTI). Valve area: 1.18cm^2 (Vmax). Mean gradient: 7mm Hg (S). Peak gradient: 12mm Hg (S). AORTA: Aortic root: The aortic root was normal in size. MITRAL VALVE: Mildly calcified annulus. Doppler: Transvalvular velocity was within the normal range. There was no evidence for stenosis. Mild to moderate regurgitation directed centrally. LEFT ATRIUM: The atrium was mildly dilated. RIGHT VENTRICLE: The cavity size was normal. Wall thickness was normal. PULMONIC VALVE: Doppler: Transvalvular velocity was within the normal range. There was no evidence for stenosis. No regurgitation. TRICUSPID VALVE: Structurally normal valve. Doppler: Transvalvular velocity was within the normal range. Moderate regurgitation. PULMONARY ARTERY: The main pulmonary artery was normal-sized. Systolic pressure was mildly to moderately increased. RIGHT ATRIUM: The atrium was normal in size. PERICARDIUM: There was no pericardial effusion. SYSTEMIC VEINS: Inferior vena cava: The vessel was dilated. BASIC MEASUREMENTS ADULT Normal Left ventricle LV internal dimension, ED, chordal level, 48.4 mm 43-52 PLAX LV internal dimension, ES, chordal level, *40 mm 23-38 PLAX Fractional shortening, chordal level, PLAX *17 % >29 LV posterior wall thickness, ED 10.8 mm IVS/LVPW ratio, ED *1.31 <1.3 Ventricular septum Septal thickness, ED 14.1 mm Aortic valve Leaflet separation *11 mm 15-26 Right ventricle RV internal dimension, ED, PLAX 24.7 mm 19-38 BASIC MEASUREMENTS ADULT Normal Aortic valve Leaflet separation *11 mm 15-26 Aorta Root diameter, ED *39 mm 20-37 Left atrium Anterior-posterior dimension, ES *43 mm 19-40 LA/aortic root ratio 1.1 DOPPLER MEASUREMENTS ADULT Normal Main pulmonary artery Pressure, S *59 mm Hg =30 Aortic valve Peak velocity, S 170 cm/s Mean velocity, S 120 cm/s VTI, S 25.8 cm Mean gradient, S 7 mm Hg Peak gradient, S 12 mm Hg Valve area, VTI 1.37 cm^2 Valve area, Vmax 1.18 cm^2 Regurgitant velocity, ED 380 cm/s Regurgitant deceleration 2730 cm/s^2 Regurgitant pressure half-time 408 ms Regurgitant gradient, ED 58 mm Hg Tricuspid valve Regurgitant peak velocity 351 cm/s Peak RV-RA gradient, S 49 mm Hg Maximal regurgitant velocity 351 cm/s Systemic veins Estimated CVP 10 mm Hg Right ventricle RV pressure, S *59 mm Hg <30 LEGEND: Mean values are shown as u=mean value. Asterisk (*) hart values outside specified normal range. Prepared and signed by Escobar Moreno [id number]
[2016-06-25] MEDS ORDERED: MIDAZOLAM HCL 2 MG/2 ML VIAL ONE (17:42)
[2016-06-25] MEDS ORDERED: HEPARIN SODIUM - IV 10,000 UNITS/10 ML VIAL ONE (17:42)
[2016-06-25] MEDS ORDERED: ISOPROTERENOL HCL 1 MG/5 ML AMP ONE (17:42)
[2016-06-25] MEDS ORDERED: PROTAMINE SULFATE 50 MG/5 ML VIAL ONE (17:42)
[2016-06-25] MEDS ORDERED: PROPOFOL 200 MG/20 ML AMP IV ONE (18:00)
[2016-06-25] MEDS ORDERED: SODIUM CHLOR 0.9% 250 ML INJ 250 ML IV PRN (19:45)
[2016-06-25] MEDS ORDERED: LORazepam 2 MG/ML VIAL IV PRN (19:45)
[2016-06-25] MEDS ORDERED: oxyCODONE/ACETAMINOPHEN 5 MG/325 MG TAB PO PRN (19:45)
[2016-06-25] MEDS ORDERED: LIDOCAINE HCL 1% 50 ML VIAL INFIL PRN (19:45)
[2016-06-25] MEDS ORDERED: METOCLOPRAMIDE HCL 10 MG/2 ML VIAL IV PRN (19:45)
[2016-06-25] MEDS ORDERED: BACITRACIN OINT 0.9 GM PKT TOP ONE (19:45)
[2016-06-25] MEDS ORDERED: ONDANSETRON HCL 4 MG/2 ML VIAL IV PRN (19:45)
[2016-06-25] MEDS ORDERED: ATROPINE SULFATE 1 MG/ML VIAL IV PRN (19:45)
[2016-06-25] MEDS ORDERED: traMADol HCL 50 MG TAB PO PRN (21:30)
[2016-06-25] MEDS: AMIODARONE 200 MG TAB PO SCH (21:47)
[2016-06-26] VITALS (20 sets, daily range): BP systolic 118–138; BP diastolic 60–84; PULSE 72–88; RESP 16–18; TEMP 97.6–97.8; O2SAT 92–94
[2016-06-26 06:22] LABS: AUTOMATED NEUTROPHIL # 6.3 TH/MM3 (1.8-7.7); BASOPHIL # 0.1 TH/MM3 (0-0.2); BASOPHIL % 0.9 % (0.0-2.0); EOSINOPHIL # 0.1 TH/MM3 (0-0.4); EOSINOPHIL % 1.4 % (0.0-4.0); HEMATOCRIT 31.5 % (35.0-46.0); HEMO FLAGS DIFF FINAL; LYMPH % 19.5 % (9.0-44.0); LYMPHOCYTE # 1.8 TH/MM3 (1.0-4.8); MEAN CELL VOLUME 81.1 FL (80.0-100.0); MEAN CORPUSCULAR HEMOGLOBIN 25.8 PG (27.0-34.0); MEAN CORPUSCULAR HGB CONC 31.8 % (32.0-36.0); MONO % 9.4 % (0.0-8.0); NEUT % 68.8 % (16.0-70.0); PLATELET COUNT 293 TH/MM3 (150-450); RED BLOOD COUNT 3.88 MIL/MM3 (4.00-5.30); WHITE BLOOD COUNT 9.2 TH/MM3 (4.0-11.0)
[2016-06-26] MEDS: LEVOTHYROXINE SODIUM 112 MCG TAB PO SCH (06:24)
[2016-06-26 06:57] LABS: BICARBONATE 25.6 MEQ/L (21.0-32.0); POTASSIUM 3.7 MEQ/L (3.5-5.1)
[2016-06-26 07:17] LABS: CALCIUM-PROTEIN CORRECTED 7.9 MG/DL (8.5-10.1)
[2016-06-26] MEDS: FUROSEMIDE 40 MG TAB PO SCH (09:52)
[2016-06-26] MEDS: COLESEVELAM HCL 625 MG TAB PO SCH (09:52)
[2016-06-26] MEDS: AMIODARONE 200 MG TAB PO SCH (09:52)
[2016-06-26] MEDS: FAMOTIDINE 20 MG TAB PO SCH (09:52)
[2016-06-26] MEDS: POTASSIUM CHLORIDE 20 MEQ CONTROLLED RELEASE TAB PO SCH (09:52)
[2016-06-26] MEDS: SODIUM CHLORIDE 0.9% FLUSH 10 ML FLUSH IV FLUSH SCH (09:53)
[2016-06-26] MEDS: cefTRIAXone INJ 1,000 MG in SODIUM CHLORIDE 0.9% INJ 100 ML IV SCH (09:54)
--- NOTE | 2016-06-26 10:37 | EKG ---
Date Performed: 06/25/2016 Time Performed: 20:17:44 PTAGE: 85 years EKG: Sinus rhythm with 1st degree A-V block Possible left atrial abnormality Left ventricular hypertrophy Extensive ST -T changes may be due to hypertrophy and/or ischemia Compared to previous tracing, the patient is no longer tachycardic . Abnormal ECG PREVIOUS TRACING : 06/23/2016 21.32 DOCTOR: Marietta Mosher Interpretating Date/Time 06/26/2016 10:32:54
--- NOTE | 2016-06-26 10:39 | EKG ---
Date Performed: 06/26/2016 Time Performed: 05:20:04 PTAGE: 85 years EKG: Sinus rhythm with PAC(s) with 1st degree A-V block Possible left atrial abnormality Left ventricular hypertrophy Extensive ST-T changes may be due to hypertrophy and/or ischemia Compared to prior tracing no signifi cant change. Abnormal ECG PREVIOUS TRACING : 06/25/2016 20.17 DOCTOR: Marietta Mosher Interpretating Date/Time 06/26/2016 10:33:36
--- NOTE | 2016-06-26 11:01 | HHI.PR ---
Subjective Interval History awake alert and oriented laying in bed s/p ablation last night in sinus rhythm complaining of some nausea did not sleep well last night no family at bed side Vitals/Results Intake & Output 06/25/16 06/25/16 06/26/16 15:00 23:00 07:00 Intake Total 240 ml Output Total 750 ml Balance -510 ml Intake Oral 240 ml Output Urine Total 750 ml # Bowel Movements 0 Vital Signs Vital Signs Date Time Temp Pulse Resp B/P Pulse Ox O2 Delivery O2 Flow Rate FiO2 06/26/16 10:00 82 06/26/16 09:00 86 06/26/16 08:15 93 Room Air 06/26/16 08:00 88 06/26/16 07:50 83 18 138/84 92 06/26/16 07:19 81 06/26/16 06:31 82 06/26/16 05:08 80 06/26/16 04:07 81 06/26/16 03:15 93 Nasal Cannula 1.50 06/26/16 03:15 97.8 82 16 118/64 93 06/26/16 03:03 81 06/26/16 02:16 81 06/26/16 01:04 85 06/26/16 00:43 83 06/25/16 23:30 94 Nasal Cannula 1.50 06/25/16 23:30 98.1 88 16 113/64 94 06/25/16 23:30 87 06/25/16 22:10 82 06/25/16 21:00 78 06/25/16 20:00 97.9 77 16 103/61 96 06/25/16 20:00 75 06/25/16 20:00 96 Nasal Cannula 1.00 06/25/16 18:00 118 06/25/16 17:00 120 06/25/16 16:00 122 06/25/16 15:00 120 06/25/16 15:00 98.1 120 18 148/87 98 06/25/16 14:00 120 06/25/16 13:00 119 06/25/16 12:00 118 06/25/16 11:00 117 06/25/16 11:00 97.9 117 18 123/81 97 CBC/BMP: 06/26/16 0531 06/26/16 0531 Lab Results Laboratory Tests Test 06/26/16 05:31 White Blood Count 9.2 TH/MM3 Red Blood Count 3.88 MIL/MM3 Hemoglobin 10.0 GM/DL Hematocrit 31.5 % Mean Corpuscular Volume 81.1 FL Mean Corpuscular Hemoglobin 25.8 PG Mean Corpuscular Hemoglobin 31.8 % Concent Red Cell Distribution Width 17.0 % Platelet Count 293 TH/MM3 Mean Platelet Volume 8.6 FL Neutrophils (%) (Auto) 68.8 % Lymphocytes (%) (Auto) 19.5 % Monocytes (%) (Auto) 9.4 % Eosinophils (%) (Auto) 1.4 % Basophils (%) (Auto) 0.9 % Neutrophils # (Auto) 6.3 TH/MM3 Lymphocytes # (Auto) 1.8 TH/MM3 Monocytes # (Auto) 0.9 TH/MM3 Eosinophils # (Auto) 0.1 TH/MM3 Basophils # (Auto) 0.1 TH/MM3 CBC Comment DIFF FINAL Differential Comment Sodium Level 140 MEQ/L Potassium Level 3.7 MEQ/L Chloride Level 105 MEQ/L Carbon Dioxide Level 25.6 MEQ/L Anion Gap 9 MEQ/L Blood Urea Nitrogen 16 MG/DL Creatinine 0.81 MG/DL Estimat Glomerular Filtration 67 ML/MIN Rate Random Glucose 93 MG/DL Calcium Level 7.4 MG/DL Protein Corrected Calcium 7.9 MG/DL Total Protein 6.1 GM/DL Physical Exam General General Appearance: Well Developed, Well Nourished, No Acute Distress Eyes Eye Exam: Pupils Equal, Pupils Reactive Throat Throat Exam: Oral Mucosa [place] & Moist Neck Neck Exam: Neck Supple, Trachea Midline Pulmonary Resp Exam: Clear Bilaterally, Breath Sounds Equal, No Distress Cardiology CV Exam: Regular, Tachycardia Gastrointestinal/Abdomen GI Exam: Soft, Non-Tender, Bowel Sounds Present Genitourinary Remarks dressing b/l groin, no hematomas appreciated Musculoskeletal MS Exam: Joints Intact, Normal Gait, Normal Tone, Good Strength Integumentary Skin Exam: Clear, Warm, Dry, Intact Extremeties Extremities Exam: No Edema Neurologic Neuro Exam: Alert, Awake, Oriented Psychiatric Psych Exam: Appropriate Responses Assessment/Plan Assessment/Plan Assessment and Plan Assessment and Plan Problem List: (1) Atrial fibrillation with RVR (2) UTI (urinary tract infection) (3) HTN (hypertension) (4) CKD (chronic kidney disease) (5) Anxiety disorder, unspecified (6) Fibromyalgia (7) Hypothyroidism (8) Leukocytosis (9) Chronic CHF Assessment and Plan Admit to Dr. Valle 85-year-old elderly female with significant past medical history hypertension, CHF, chronic A. fib. Presented to the emergency room complaining of feeling more fatigued, chest tightness with mild shortness of breath. Found with A. fib , a flutter with RVR. Appreciate Cardiology input, s/p ablation 06/25 Eliquis held, resume per Cradiology Continuous cardiac telemetry Off amiodarone drip and Cardizem gtt -on po Amiodarone Leukocytosis, likely sec to UTI Culture growing Klebsiella Pneumonia, sensitivities noted on Rocephin, will switch to po antibiotics at discharge leucocytosis resolved Chronic CHF, stable. Patient does not appear to be in fluid overload, lungs are clear. Continue with Lasix 40 mg by mouth twice a day Monitor intake and output Hypothyroid Continue with home medications Fibromyalgia, stable Continue to monitor Chronic kidney disease, stage III, stable Avoid nephrotoxic agents Monitor renal function Home medications reviewed, initiated as indicated Pepcid for GI prophylaxis discussed with patient discussed with nursing staff likely discharge in am, if ok with cardiology Yesenia Hoover MD Jun 26, 2016 11:01
[2016-06-26] MEDS: ONDANSETRON HCL 4 MG/2 ML VIAL IVP PRN (12:00)
--- NOTE | 2016-06-26 14:40 | HHI.PR ---
Subjective Remarks Feeling better Objective Vital Signs Date Time Temp Pulse Resp B/P Pulse Ox O2 Delivery O2 Flow Rate FiO2 06/26/16 14:26 74 06/26/16 13:14 80 06/26/16 12:02 94 Room Air 06/26/16 12:02 97.6 80 18 118/60 94 06/26/16 12:02 81 06/26/16 11:11 77 06/26/16 10:00 82 06/26/16 09:00 86 06/26/16 08:15 93 Room Air 06/26/16 08:00 88 06/26/16 07:50 83 18 138/84 92 06/26/16 07:19 81 06/26/16 06:31 82 06/26/16 05:08 80 06/26/16 04:07 81 06/26/16 03:15 93 Nasal Cannula 1.50 06/26/16 03:15 97.8 82 16 118/64 93 06/26/16 03:03 81 06/26/16 02:16 81 06/26/16 01:04 85 06/26/16 00:43 83 06/25/16 23:30 94 Nasal Cannula 1.50 06/25/16 23:30 98.1 88 16 113/64 94 06/25/16 23:30 87 06/25/16 22:10 82 06/25/16 21:00 78 06/25/16 20:00 97.9 77 16 103/61 96 06/25/16 20:00 75 06/25/16 20:00 96 Nasal Cannula 1.00 06/25/16 18:00 118 06/25/16 17:00 120 06/25/16 16:00 122 06/25/16 15:00 120 06/25/16 15:00 98.1 120 18 148/87 98 I/O 06/25/16 06/25/16 06/25/16 06/26/16 06/26/16 06/26/16 07:00 15:00 23:00 07:00 15:00 23:00 Intake Total 240 ml 240 ml Output Total 500 ml 750 ml Balance -260 ml -510 ml Intake Oral 240 ml 240 ml Output Urine Total 500 ml 750 ml # Bowel Movements 1 0 Result Diagram: 06/26/16 0531 06/26/16530 Imaging Alert, fully oriented Lungs: ventilated Heart: S1, S2 regular, no gallop Abdomen: soft, no mass Ext: no edema Current Medications Medications (Trade) Dose Ordered Sig/Sammy Route Start Time Stop Time Status Last Admin (NS Flush) 2 ml UNSCH PRN IV FLUSH 06/23/16 20:30 06/26/16 12:02 (NS Flush) 2 ml BID IV FLUSH 06/23/16 21:00 06/26/16 09:53 (Tylenol) 650 mg Q4H PRN PO 06/23/16 20:30 06/24/16 21:45 (Zofran Inj) 4 mg Q6H PRN IVP 06/23/16 20:30 06/26/16 12:00 (Narcan Inj) 0.4 mg UNSCH PRN IV 06/23/16 20:30 (Welchol) 1,875 mg DAILY PO 06/24/16 09:00 06/26/16 09:52 (Lasix) 40 mg BID PO 06/23/16 21:00 06/26/16 09:52 (Synthroid) 112 mcg DAILY@06 PO 06/24/16 06:00 06/26/16 06:24 (KCl) 20 meq DAILY PO 06/24/16 09:00 06/26/16 09:52 Famotidine 20 mg 20 mg BID PO 06/23/16 21:00 06/26/16 09:52 (Rocephin Inj/NS Inj) 100 ml @ 200 mls/hr Q24H IV 06/25/16 09:00 06/26/16 09:54 (Ativan Inj) 0.5 mg UNSCH PRN IV 06/25/16 19:45 06/26/16 19:44 Atropine Sulfate 0.5 mg 0.5 mg UNSCH PRN IV 06/25/16 19:45 (NS 250 ml Inj) 250 ml @ 500 mls/hr ONCE PRN IV 06/25/16 19:45 06/26/16 19:44 (Reglan Inj) 10 mg Q4H PRN IV 06/25/16 19:45 (Zofran Inj) 4 mg Q4H PRN IV 06/25/16 19:45 (Xylocaine 1% Inj (50 ml)) 10 ml UNSCH PRN INFIL 06/25/16 19:45 06/26/16 19:44 (Cordarone) 400 mg BID PO 06/25/16 21:00 06/30/16 21:00 06/26/16 09:52 (Cordarone) 200 mg DAILY PO 07/01/16 09:00 (Ultram) 50 mg Q6H PRN PO 06/25/16 21:30 06/25/16 21:48 Assessment and Plan Problem List: (1) Atrial fibrillation with RVR Status: Acute Plan: SP atrial flutter ablation. In sinus rhythm Doing well. Stable On eliquis. Can be DH Follow up with me in 3 weeks. (2) HTN (hypertension) Status: Acute Plan: SBP 118. Control Problem Qualifiers (1) HTN (hypertension): Qualified Code: I10 - Essential hypertension Leo Pickard MD Jun 26, 2016 14:40
[2016-06-26] MEDS ORDERED: APIXABAN 5 MG TABLET PO SCH (15:00)
[2016-06-26] MEDS ORDERED: AMIO200T PO ×2 (15:49)
[2016-06-26] MEDS ORDERED: CEPH-460 PO (15:51)
--- NOTE | 2016-06-26 18:32 | HHI.DS ---
Discharge Summary Admission Date Jun 23, 2016 at 20:14 Discharge Date: Jun 26, 2016 Admitting Diagnosis Afib with RVR (1) Atrial fibrillation with RVR Diagnosis: Principal (2) UTI (urinary tract infection) Diagnosis: Principal (3) HTN (hypertension) Diagnosis: Principal (4) CKD (chronic kidney disease) Diagnosis: Secondary (5) Anxiety disorder, unspecified Diagnosis: Secondary (6) Fibromyalgia Diagnosis: Secondary (7) Hypothyroidism Diagnosis: Secondary (8) Leukocytosis Diagnosis: Secondary (9) Chronic CHF Diagnosis: Secondary Brief History This was an 85-year-old elderly female with significant PMHx of CHF, afibrillation, HTN. Patient presented to the emergency room with complaints of generalized malaise, indicates she has felt poorly very fatigued. She went to see her primary care on 2 different occasions, the first time in March and then in April. Initially Dr. Hua that it was due to her thyroid and adjusted her Synthroid from 100 g to 112. Prior to this visit, patient had followed up with her concrete engineering technician in [place] and he had started her on diltiazem. Patient believed that the diltiazem is what's making her weak. She had noted shortness of breath on exertion, she had felt some chest discomfort as if her bra felt a little tighter. She had not felt any palpitations. She had felt more tired than usual, denies any fever, no chills. No cough, no sputum production. She had been checking her blood pressure at home and has noted that it was running around 120s. However her noted that her heart rate was running up to 130s. She doesn't have a formal concrete engineering technician in the area but approximately a year ago she did see Dr. Andersen while she was in the hospital but never followed up with him as OP. Most recently she had gone to the [facility] and was trying to establish herself with one of their physicians and had filled out paperwork to have her records sent from [place]. CBC/BMP: 06/26/16 0531 06/26/16 0531 Significant Findings Laboratory Tests Test 06/23/16 06/24/16 06/26/16 19:05 05:15 05:31 Urine Turbidity MOD (CLEAR) Urine Nitrite POS (NEG) Urine Leukocyte Esterase SMALL (NEG) Urine WBC 6-8 /hpf (0-5) Urine Squamous Epithelial > 8 /hpf (0-5) Cells Urine Bacteria MANY /hpf (NONE) Red Blood Count 3.98 MIL/MM3 3.88 MIL/MM3 (4.00-5.30) (4.00-5.30) Hemoglobin 10.5 GM/DL 10.0 GM/DL (11.6-15.3) (11.6-15.3) Hematocrit 32.5 % 31.5 % (35.0-46.0) (35.0-46.0) Mean Corpuscular Hemoglobin 26.3 PG 25.8 PG (27.0-34.0) (27.0-34.0) Red Cell Distribution Width 17.6 % (11.6-17.2) Monocytes (%) (Auto) 9.3 % (0.0-8.0) 9.4 % (0.0-8.0) Estimat Glomerular Filtration 61 ML/MIN (>89) 67 ML/MIN (>89) Rate Calcium Level 7.9 MG/DL 7.4 MG/DL (8.5-10.1) (8.5-10.1) Mean Corpuscular Hemoglobin 31.8 % Concent (32.0-36.0) Protein Corrected Calcium 7.9 MG/DL (8.5-10.1) Total Protein 6.1 GM/DL (6.4-8.2) Imaging Last Impressions Chest X-Ray 06/23/16 [id number] Signed Impressions: Service Date/Time: Thursday, June 23, 2016 17:57 - CONCLUSION: No acute findings. Demetrio Whyte MD PE at Discharge General Appearance: Well Developed, Well Nourished, No Acute Distress Eyes Eye Exam: Pupils Equal, Pupils Reactive Throat Throat Exam: Oral Mucosa [place] & Moist Neck Neck Exam: Neck Supple, Trachea Midline Pulmonary Resp Exam: Clear Bilaterally, Breath Sounds Equal, No Distress Cardiology CV Exam: Regular, Tachycardia Gastrointestinal/Abdomen GI Exam: Soft, Non-Tender, Bowel Sounds Present Genitourinary Remarks dressing b/l groin, no hematomas appreciated Musculoskeletal MS Exam: Joints Intact, Normal Gait, Normal Tone, Good Strength Integumentary Skin Exam: Clear, Warm, Dry, Intact Extremeties Extremities Exam: No Edema Neurologic Neuro Exam: Alert, Awake, Oriented Psychiatric Psych Exam: Appropriate Responses Hospital Course In the emergency room, patient was evaluated and EKG done showed a flutter at 131 heart rate. Patient was given Lopressor 5 mg IV [address] Graham who was covering for the [facility] was contacted and requested amiodarone 300 mg IV bolus along with amiodarone drip and Cardizem drip. Patient was transferred from the [facility] to the main campus. Patient was noted with drop in blood pressure to 88/50 therefore the Cardizem drip was held. Patient did receive a fluid bolus in the emergency room as her blood pressure continued to drop to 71/45. Heart rate is sinus but still tachycardic down to 119. She is currently on amiodarone drip. Laboratory workup was completed, significant for WBC of 15.4 which is now down to 9.2. Basic metabolic panel was unremarkable. B natruretic peptide was 251. Urinalysis was positive for nitrates, leukocyte esterase and bacteria. Culture is pending. Patient received Rocephin. Patient is admitted for further evaluation and treatment. These are the diagnoses that were used to take care of this patient during this hospital stay and her plan of care. (1) Atrial fibrillation with RVR (2) UTI (urinary tract infection) (3) HTN (hypertension) (4) CKD (chronic kidney disease) (5) Anxiety disorder, unspecified (6) Fibromyalgia (7) Hypothyroidism (8) Leukocytosis (9) Chronic CHF Assessment and Plan Admit to Dr. Valle 85-year-old elderly female with significant past medical history hypertension, CHF, chronic A. fib. Presented to the emergency room complaining of feeling more fatigued, chest tightness with mild shortness of breath. Found with A. fib , a flutter with RVR. Appreciate Cardiology input, and for her stabilization. She was s/p ablation on 06/25 Eliquis held, resume per Cardiology Continuous cardiac telemetry during her hospital stay Off amiodarone drip and Cardizem gtt also used to control her heart rate. After stabilization patient was placed -on po Amiodarone Leukocytosis, likely sec to UTI Culture growing Klebsiella Pneumonia, sensitivities noted on IV Rocephin, initially will switch to po antibiotics at discharge leucocytosis resolved with this treatment plan Chronic CHF, stable. Patient does not appear to be in fluid overload, lungs are clear. Continue with Lasix 40 mg by mouth twice a day Monitor intake and output during her course of stay. No acute issues noted Hypothyroid Continue with home medications Fibromyalgia, stable Continue to monitor Chronic kidney disease, stage III, stable Avoid nephrotoxic agents Monitor renal function Home medications reviewed, initiated as indicated Pepcid for GI prophylaxis Once patient was stabilized from her cardiac arrhythmia of atrial fib, and her UTI was treated patient was placed on by mouth antibiotics. She was examined on day of discharge per Dr. jones, and felt she was stable. She was also discharged from cardiology standpoint to follow up as an outpatient. Pt Condition on Discharge: Stable Discharge Disposition: Discharge Home Discharge Instructions DIET: Follow Instructions for: Heart Healthy Diet Activities you can perform: Regular-No Restrictions Follow up Referrals: Cardiology - 1 Week with Leo Pickard MD New Medications: Cephalexin (Keflex) 500 Mg Cap 500 MG PO Q6H Infection #20 Ref 0 CAP Amiodarone (Amiodarone) 200 Mg Tab 200 MG PO DAILY starting 07/01/16 arrythmia #30 Ref 0 TAB Amiodarone (Amiodarone) 200 Mg Tab 400 MG PO BID please stop it on 06/30/16 arrythmia #10 TAB Continued Medications: Apixaban (Eliquis) 5 Mg Tab 5 MG PO BID Blood Clot Prevention #60 Ref 0 TAB Colesevelam (Welchol) 625 Mg Tab 1875 MG PO DAILY Hyperlipidemia,type 2 diabetes #180 Ref 0 TAB Furosemide (Lasix) 40 Mg Tab 40 MG PO BID #60 Ref 0 TAB Levothyroxine (Levothyroxine) 112 Mcg Tab 112 MCG PO DAILY Thyroid #30 Ref 0 TAB Potassium Chloride ER (K-Tab) 20 Meq Tab 20 MEQ PO DAILY Electrolyte Replacement #30 Ref 0 TAB Ranitidine (Ranitidine) 150 Mg Tab 150 MG PO BID Heartburn Management #60 Ref 0 TAB Discontinued Medications: Diltiazem ER 24 HR (Cartia Xt) 120 Mg Caper 120 MG PO DAILY #30 Ref 0 CAP Suha Noguera Jun 26, 2016 18:32
[2016-07-01] MEDS ORDERED: AMIODARONE 200 MG TAB PO SCH (09:00)
--- NOTE | 2016-07-03 06:29 | MA ---
cc: ARMIDA FRITZ M.D., HANSCY M.D. DATE 06/25/2016 PROCEDURE PERFORMED Electrophysiology study, CS cannulation, 3-D mapping, radiofrequency ablation of atrial flutter, left atrial tachycardia cardioversion with repeat electrophysiology study on Isuprel infusion. INDICATIONS FOR PROCEDURE Ms. Romo is an 85-year-old female with atrial flutter, unable to control with medication, very symptomatic, referred for electrophysiology study and ablation. The risks, the nature and the benefit of the procedure are clearly stated to her. The risks include pneumothorax, cardiac perforation, stroke and even . She understood and agreed to proceed. PROCEDURE After written informed consent was obtained, the patient was brought to the EP Lab where she was prepped and draped in the usual sterile fashion. Conscious sedation was initiated and maintained throughout the procedure by the anesthesiologist. Once sedation was verified, the right and left inguinal area was anesthetized with 2% Xylocaine. Using modified Seldinger technique, the right femoral vein was cannulated on two occasions. Two guidewires were advanced over the wires. A 6 and an 8-Welsh Hemaquet were advanced. Then the left femoral vein was cannulated on three occasions and three guidewires were advanced over the wire. Three 5-Welsh Hemaquets were advanced. Then under fluoroscopic guidance through the 5 and 6-Welsh Hemaquet, four 5-Welsh Andrew curved quadripolar electrophysiology catheters were advanced and placed around the His, upper right atrium, coronary sinus and right ventricular apex. Basic interval was measured. The patient was in atrial flutter. Then through the 8-Welsh Hemaquet, a Cordis Tesfaye F-curve, 8-mm mapping and radiofrequency ablation catheter was advanced. Using [employer] endocardial solution mapping system, a three-dimensional configuration of the right atrium was obtained and were taken at the SVC, RVC, TV6, CS and His. Then the catheter was at the critical isthmus. Radiofrequency energy was delivered. During ablation the patient converted back into sinus rhythm, then converted into left atrial tachycardia. Activation changed. Further burn was delivered in the coronary sinus. The right atrium was re-mapped. At this point I decided to proceed with cardioversion and 200 sync biphasic joule delivered that converted the patient into sinus rhythm. The patient was observed. Basic interval was measured. Then atrial pacing protocol was performed. No tachyarrhythmia was induced. Pacing lateral to the line showed activation to the His compared to the CS that indicated bilateral line of block. Then Isuprel was infused. No tachyarrhythmia was induced. At that point the procedure was complete. All catheters were removed. The patient is going to be transferred to the recovery room. No incident reported. The patient tolerated procedure. Blood loss minimal. 1. ELECTROCARDIOGRAM: At baseline the patient was in atrial flutter. Postprocedure the patient is sinus rhythm 2. BASIC INTERVAL: Base cycle length was around 520 milliseconds. Post ablation it was 980, AH was around 180, HV at 54 milliseconds. 3. 3. TACHYARRHYTHMIA: Atrial flutter was mapped and ablated. Atrial tachycardia was ablated. Left atrial tachycardia was cardioverted. CONCLUSIONS Successful electrophysiology study, mapping and radiofrequency ablation of atrial flutter and left atrial tachyarrhythmia, COMMENT AND RECOMMENDATIONS The patient is going to be transferred to the telemetry unit. He will be observed and when stable can be discharged home. Leo Pickard MD HS/SSB /10:44 PM /6:14 AM
== END 2016-06-26 18:12 | disposition home or self-care (01) ==
LOC: PHED 17:17 → INTOOBSV 20:14 → PHEDA 20:14 → HCIN 06-24 02:15
PROVIDERS: ADMIT Family Medicine; ATTEND Family Medicine
DX: I48.91 Unspecified atrial fibrillation (principal); I13.0 Hypertensive heart and chronic kidney disease with heart failure and stage 1 through stage 4 chronic kidney disease, or unspecified chronic kidney disease; N18.3 Chronic kidney disease, stage 3 (moderate); I50.9 Heart failure, unspecified; I48.92 Unspecified atrial flutter; N39.0 Urinary tract infection, site not specified; B96.1 Klebsiella pneumoniae [K. pneumoniae] as the cause of diseases classified elsewhere; F41.9 Anxiety disorder, unspecified; M79.7 Fibromyalgia; E03.9 Hypothyroidism, unspecified; D72.829 Elevated white blood cell count, unspecified; M54.9 Dorsalgia, unspecified; G89.29 Other chronic pain; E78.5 Hyperlipidemia, unspecified; K21.9 Gastro-esophageal reflux disease without esophagitis; I25.10 Atherosclerotic heart disease of native coronary artery without angina pectoris; E78.00 Pure hypercholesterolemia, unspecified; Z88.1 Allergy status to other antibiotic agents; Z88.5 Allergy status to narcotic agent; Z88.8 Allergy status to other drugs, medicaments and biological substances; Z79.01 Long term (current) use of anticoagulants
CPT/HCPCS: 71010; 80048; 80053; 81001; 82550; 82552; 83735; 83880; 84155; 84443; 84484; 85007; 85025; 85027; 85610; 85730; 87040; 87077; 87086; 87186; 87804; 92960; 93005; 93306; 93613; 93623; 93653; 96361; 96374; 96376; 99291; C1730; C1732; C2630; G0378; J0282; J0696; J2405; J3010; J7040; J7060; J1644; J2250; J2720

== ENCOUNTER 2016-06-30 17:44 | Emergency (ER) | payer MEDICARE, OTHER ==
[~2016-06-30 17:44] MED LIST changes: -ALPR.25 PO; +AMIO200T PO; -APIX2.5T PO; +APIX5TAB PO; +CEPH-460 PO; -DOCU100T9 PO; -ECOT81TA2 PO; +FURO1TAB60 PO; -FURO20 PO; -KCL20 PO; -LEVO.1 PO; +LEVO112T2 PO; -METO50TA PO; -MIRA33502 PO; -MIRT15 PO; +POTA1TAB4 PO; -PROT40TA PO; +RANI150T PO; -SOTA80 PO; -TRAM50 PO; +WELC625T2 PO; -ZOFR4TAB3 SL
[2016-06-30 17:46] VITALS: BP 172/72; PULSE 75; RESP 24; TEMP 97.7; O2SAT 100
--- NOTE | 2016-06-30 18:39 | PD ---
HPI Chief Complaint: Bleeding Time Seen by Provider: 18:35 Travel History International Travel<30 days: No Contact w/Intl Traveler<30days: No Traveled to known affect area: No History of Present Illness HPI Patient comes in complain of fatigue and decreased appetite since leaving the hospital 4 days ago. Patient denies any chest pain, fevers, nausea, vomiting, shortness of breath, loss or change in bowel or bladder, headache, or other symptoms. Patient denies anything making it better. Patient is concerned over bruising of bilateral groin from recent catheterization of her cardiac ablation states that is as of the bruising has become more. Patient has been taking all of her medication as prescribed. Patient reports she does get dehydrated easily and has not been drinking much fluid.. PFSH Past Medical History Hx Anticoagulant Therapy: Yes Arthritis: Yes Asthma: No Atrial Fibrillation: Yes (flutter RVR) Depression: Yes Heart Rhythm Problems: Yes ( fib) Cancer: No Cardiovascular Problems: Yes (A-FIB, ABLATION) High Cholesterol: Yes Chest Pain: No Congestive Heart Failure: Yes COPD: No Cerebrovascular Accident: No Coronary Artery Disease: Yes Diabetes: No Diminished Hearing: No Fibromyalgia: Yes Gastrointestinal Disorders: Yes (COLITIS, RECTAL MASS) GERD: Yes Glaucoma: No Genitourinary: Yes (retention) Headaches: Yes Hepatitis: No Hiatal Hernia: No Heparin Induced Thrombocytopen: No Hypertension: Yes Immune Disorder: No Implanted Vascular Access Dvce: No Kidney Stones: No Medical other: Yes (FIBROMYALGIA) Musculoskeletal: Yes (chronic back pain) Neurologic: No Psychiatric: No Reproductive: No Respiratory: No Immunizations Current: Yes Migraines: No Myocardial Infarction: No Renal Failure: No Seizures: No Sickle Cell Disease: No Sleep Apnea: No Thyroid Disease: Yes Ulcer: No Tetanus Vaccination: Unknown Influenza Vaccination: Yes ?: Not Menopausal: Yes : 2 Para: 2 Past Surgical History Abdominal Surgery: No AICD: No Appendectomy: No Arteriovenous Shunt: No Cardiac Surgery: No Cholecystectomy: No Ear Surgery: No Endocrine Surgery: No Eye Surgery: Yes (cataracts removed giuseppe) Genitourinary Surgery: No Gynecologic Surgery: No Insulin Pump: No Joint Replacement: No Neurologic Surgery: No Oral Surgery: Yes (gingivitis) Pacemaker: No Thoracic Surgery: No Tonsillectomy: Yes Other Surgery: Yes (LIPOMA LEFT ARM) Social History Alcohol Use: Yes (OCCASIONALLY) Tobacco Use: No Substance Use: No Allergies-Medications (Allergen,Severity, Reaction): Coded Allergies: Digoxin (Verified Allergy, Severe, TOXIC, 06/30/16) Tetracycline (Verified Allergy, Intermediate, UNKNOWN, 06/30/16) Pantoprazole (Verified Allergy, Unknown, 06/30/16) Codeine (Verified Adverse Reaction, Intermediate, UPSET STOMACH, 06/30/16) Prednisone (Verified Adverse Reaction, Mild, Nausea/Vomiting, 06/30/16) Reported Meds & Prescriptions Reported Meds & Active Scripts Active Keflex (Cephalexin) 500 Mg Cap 500 Mg PO Q6H Amiodarone (Amiodarone HCl) 200 Mg Tab 200 Mg PO DAILY starting 07/01/16 Reported Ranitidine (Ranitidine HCl) 150 Mg Tab 150 Mg PO BID K-Tab (Potassium Chloride) 20 Meq Tab 20 Meq PO DAILY Levothyroxine (Levothyroxine Sodium) 112 Mcg Tab 112 Mcg PO DAILY Lasix (Furosemide) 40 Mg Tab 40 Mg PO BID Eliquis (Apixaban) 5 Mg Tab 5 Mg PO BID Welchol (Colesevelam HCl) 625 Mg Tab 1,875 Mg PO DAILY Review of Systems Except as stated in HPI: all other systems reviewed are Neg Physical Exam Narrative GENERAL: Well-developed, overly nourished, in no acute distress, and non-ill appearing. SKIN: Focused skin assessment warm and dry. Patient has ecchymosis noted bilateral groin. There is no palpable hematoma or seroma. Appears to be well- healing bruise. HEAD: Atraumatic. Normocephalic. EYES: Pupils equal and round. EOMI. No scleral icterus. No injection or drainage. ENT: No nasal bleeding or discharge. Mucous membranes pink and moist. NECK: Trachea midline. Supple. No nuclear rigidity. CARDIOVASCULAR: Regular rate and rhythm. Murmur appreciated. Femoral and dorsal pulses 2+, intact, and equal bilaterally. RESPIRATORY: No accessory muscle use. No respiratory distress. Clear to auscultation. Breath sounds equal bilaterally. GASTROINTESTINAL: Abdomen soft, non-tender, nondistended. Hepatic and splenic margins not palpable. Normal bowel sounds 4. No pulsatile mass. MUSCULOSKELETAL: No obvious deformities. No clubbing. No cyanosis. No edema. Full range of motion. NEUROLOGICAL: Awake and alert. No obvious cranial nerve deficits. Motor grossly within normal limits. Normal speech. PSYCHIATRIC: Appropriate mood and affect; insight and judgment normal. Data Data Last Documented VS Vital Signs Date Time Temp Pulse Resp B/P Pulse Ox O2 Delivery O2 Flow Rate FiO2 06/30/16 19:43 61 20 151/64 100 Room Air 06/30/16 17:46 97.7 Orders Electrocardiogram (06/30/16 ) Complete Blood Count With Diff (06/30/16 18:33) Comprehensive Metabolic Panel (06/30/16 18:33) Prothrombin Time / Inr (Pt) (06/30/16 18:33) Act Partial Throm Time (Ptt) (06/30/16 18:33) Urinalysis - C+S If Indicated (06/30/16 18:33) Iv Access Insert/Monitor (06/30/16 18:33) Ecg Monitoring (06/30/16 18:33) Oximetry (06/30/16 18:33) Sodium Chlor 0.9% 250 Ml Inj (Ns 250 Ml (06/30/16 18:45) Labs Laboratory Tests Test 06/30/16 06/30/16 18:44 18:52 White Blood Count 10.3 TH/MM3 Red Blood Count 4.27 MIL/MM3 Hemoglobin 11.1 GM/DL Hematocrit 34.3 % Mean Corpuscular Volume 80.4 FL Mean Corpuscular Hemoglobin 25.9 PG Mean Corpuscular Hemoglobin 32.2 % Concent Red Cell Distribution Width 17.4 % Platelet Count 324 TH/MM3 Mean Platelet Volume 9.1 FL Neutrophils (%) (Auto) 64.8 % Lymphocytes (%) (Auto) 20.0 % Monocytes (%) (Auto) 11.7 % Eosinophils (%) (Auto) 2.7 % Basophils (%) (Auto) 0.8 % Neutrophils # (Auto) 6.7 TH/MM3 Lymphocytes # (Auto) 2.0 TH/MM3 Monocytes # (Auto) 1.2 TH/MM3 Eosinophils # (Auto) 0.3 TH/MM3 Basophils # (Auto) 0.1 TH/MM3 CBC Comment DIFF FINAL Differential Comment Prothrombin Time 12.2 SEC Prothromb Time International 1.1 RATIO Ratio Activated Partial 32.2 SEC Thromboplast Time Sodium Level 136 MEQ/L Potassium Level 3.7 MEQ/L Chloride Level 98 MEQ/L Carbon Dioxide Level 31.0 MEQ/L Anion Gap 7 MEQ/L Blood Urea Nitrogen 17 MG/DL Creatinine 1.13 MG/DL Estimat Glomerular Filtration 46 ML/MIN Rate Random Glucose 98 MG/DL Calcium Level 8.7 MG/DL Total Bilirubin 0.6 MG/DL Aspartate Amino Transf 33 U/L (AST/SGOT) Alanine Aminotransferase 29 U/L (ALT/SGPT) Alkaline Phosphatase 98 U/L Total Protein 7.5 GM/DL Albumin 3.8 GM/DL Urine Color YELLOW Urine Turbidity CLEAR Urine pH 6.0 Urine Specific [place] 1.012 Urine Protein TRACE mg/dL Urine Glucose (UA) NEG mg/dL Urine Ketones NEG mg/dL Urine Occult Blood NEG Urine Nitrite NEG Urine Bilirubin NEG Urine Urobilinogen LESS THAN 2.0 MG/DL Urine Leukocyte Esterase NEG Urine RBC 1 /hpf Urine WBC LESS THAN 1 /hpf Urine Hyaline Casts 4 /lpf Urine Mucus FEW /lpf Microscopic Urinalysis Comment CULT NOT INDICATED MDM Medical Decision Making Medical Screen Exam Complete: Yes Emergency Medical Condition: Yes Interpretation(s) EKG reviewed by Dr. Garica shows sinus rhythm with ventricular rate of 70. No STEMI. Differential Diagnosis Anemia, electrolyte abnormality, dehydration, UTI, other Narrative Course Discussed patient with Dr. Garcia who saw and evaluate the patient recommends checking labs, IV fluid, and possible discharge home. Patient reassessed feeling much better. Patient went to go home. Patient states the bathroom. Discussed all findings and plan care of Dr. Weston, who is in agreement and disposition. Patient in no obvious distress upon re-evaluation. All pertinent laboratory result(s) discussed with patient. Patient was asked if they wanted to speak to my attending, which the patient did not wish to do at this time. Any questions/ concerns in reference to patient diagnosis/condition discussed and clarified prior to patient's discharge. Reinforced sheer importance of close follow up with patient's primary physician or primary care clinic. Instructed patient to return to ED immediately, if symptoms return/worsen. Pt showed understanding of above instructions. Further instructions and recommendations were detailed in discharge paperwork. Pt ambulated without difficulty out of ED at discharge. Diagnosis Primary Impression: Fatigue Qualified Code: R53.83 - Fatigue, unspecified type Patient Instructions: Fatigue (ED), General Instructions Additional Instructions: Follow-up with your primary care physician 2-3 days for reevaluation. Follow- up with your clinical exercise specialist as scheduled. Return to the emergency department if symptoms get worse. Disposition: 01 DISCHARGE HOME Condition: Stable Donavan Crump Jun 30, 2016 18:39
[2016-06-30] MEDS ORDERED: SODIUM CHLOR 0.9% 250 ML INJ 250 ML IV ONE (18:45)
[2016-06-30 19:05] VITALS: O2SAT 96
[2016-06-30 19:10] LABS: BLOOD, URINE NEG (NEG); COMMENT (UR) CULT NOT INDICATED; CULTURE IF INDICATED CULT NOT INDICATED; GLUCOSE,URINE NEG (NEG); HYALINE CAST, URINE 4 /lpf (RARE); KETONE, URINE NEG (NEG); MUCUS URINE FEW /lpf (OCC); NITRITE,URINE NEG (NEG); URINE COLOR YELLOW (YELLW/STRAW)
[2016-06-30 19:19] LABS: APTT (PATIENT) 32.2 SEC (24.3-30.1); INTERNATIONAL NORMALIZED RATIO 1.1 RATIO; PROTHROMBIN TIME - PATIENT 12.2 SEC (9.8-11.6)
[2016-06-30 19:31] LABS: AUTOMATED NEUTROPHIL # 6.7 TH/MM3 (1.8-7.7); BASOPHIL # 0.1 TH/MM3 (0-0.2); BASOPHIL % 0.8 % (0.0-2.0); EOSINOPHIL # 0.3 TH/MM3 (0-0.4); EOSINOPHIL % 2.7 % (0.0-4.0); HEMATOCRIT 34.3 % (35.0-46.0); HEMO FLAGS DIFF FINAL; MEAN CELL VOLUME 80.4 FL (80.0-100.0); MEAN CORPUSCULAR HEMOGLOBIN 25.9 PG (27.0-34.0); MEAN CORPUSCULAR HGB CONC 32.2 % (32.0-36.0); MONO % 11.7 % (0.0-8.0); NEUT % 64.8 % (16.0-70.0); PLATELET COUNT 324 TH/MM3 (150-450); RED BLOOD COUNT 4.27 MIL/MM3 (4.00-5.30); RED CELL DISTRIBUTION WIDTH 17.4 % (11.6-17.2); WHITE BLOOD COUNT 10.3 TH/MM3 (4.0-11.0)
[2016-06-30 19:35] LABS: ALKALINE PHOSPHATASE 98 U/L (45-117); ALT (GPT) 29 U/L (10-53); ANION GAP 7 MEQ/L (5-15); AST (GOT) 33 U/L (15-37); BLOOD UREA NITROGEN 17 MG/DL (7-18); CHLORIDE 98 MEQ/L (98-107); GLOMERULAR FILTRATION RATE 46 ML/MIN (>89); SODIUM (NA) 136 MEQ/L (136-145); TOTAL BILIRUBIN ADULT 0.6 MG/DL (0.2-1.0)
[2016-06-30 19:37] LABS: POTASSIUM 3.7 MEQ/L (3.5-5.1)
[2016-06-30 19:43] VITALS: BP 151/64; PULSE 61; RESP 20; O2SAT 100
--- NOTE | 2016-07-01 10:36 | EKG ---
Date Performed: 06/30/2016 Time Performed: 18:07:03 PTAGE: 85 years EKG: Sinus rhythm WITH FIRST DEGREE AV BLOCK WITH OCCASIONAL SUPRAVENTRICULAR PREMATURE COMPLEXES POSSIBLE LEFT ATRIAL ENLARGEMENT POSSIBLE RIGHT VENTRICULAR CONDUCTION DELAY LEFT VENTRICULAR HYPERTROPHY AND ST-T CHANGE ABNORMAL ECG Compared to prior tracing no significant change PREVIOUS TRACING : 06/26/2016 05.20 DOCTOR: Felisha Andersen Interpretating Date/Time 07/01/2016 10:29:47
== END 2016-06-30 22:25 | disposition home or self-care (01) ==
LOC: NEPE 17:44
DX: R53.83 Other fatigue (principal); I44.0 Atrioventricular block, first degree; I51.7 Cardiomegaly; I48.91 Unspecified atrial fibrillation; E78.00 Pure hypercholesterolemia, unspecified; I50.9 Heart failure, unspecified; I25.10 Atherosclerotic heart disease of native coronary artery without angina pectoris; M79.7 Fibromyalgia; K21.9 Gastro-esophageal reflux disease without esophagitis; I10 Essential (primary) hypertension; Z79.01 Long term (current) use of anticoagulants
CPT/HCPCS: 80053; 81001; 85025; 85610; 85730; 93005; 96360; 99284; J7050

== ENCOUNTER 2017-02-17 17:58 | Inpatient (IN) | payer MEDICARE, OTHER ==
[~2017-02-17] VITALS: Ht 154.9 cm; Wt 54.0 kg
[~2017-02-17 17:58] MED LIST changes: +COLE625 PO; -WELC625T2 PO
[2017-02-17 18:01] VITALS: BP 98/54; PULSE 138; RESP 16; TEMP 98.5; O2SAT 100
--- NOTE | 2017-02-17 18:28 | PD ---
HPI Chief Complaint: Cardiac Complaint Time Seen by Provider: 18:27 Travel History International Travel<30 days: No Contact w/Intl Traveler<30days: No Traveled to known affect area: No History of Present Illness HPI 86-year-old female with history of atrial fib/flutter, presents the emergency department with mild generalized weakness. Patient has a history of A. fib with RVR. Patient denies shortness of breath, chest pain, nausea, vomiting, or other symptoms. Patient was her time between [facility] and here during the winter. She just arrived here 3 days ago. Patient has been followed here by Dr. Salinas. Patient currently is not on a blood pressure medication for rate control, Only lisinopril. Is on Eloquist. The patient reports "allergies to" amiodarone, diltiazem, and amlodipine. Patient has had ablations in the past as well as not acute cardioversions, the most recent one in [place] this past summer. Patient also states allergies to codeine, digoxin, doxycycline, minocycline, pantoprazole, prednisone and tigecycline. PFSH Past Medical History Hx Anticoagulant Therapy: Yes Arthritis: Yes Asthma: No Atrial Fibrillation: Yes (flutter RVR) Depression: Yes Heart Rhythm Problems: Yes ( fib) Cancer: No Cardiovascular Problems: Yes High Cholesterol: Yes Chest Pain: No Congestive Heart Failure: Yes COPD: No Cerebrovascular Accident: No Coronary Artery Disease: Yes Diabetes: No Diminished Hearing: No Fibromyalgia: Yes Gastrointestinal Disorders: Yes (COLITIS, RECTAL MASS) GERD: Yes Glaucoma: No Genitourinary: Yes (retention) Headaches: Yes Hepatitis: No Hiatal Hernia: No Heparin Induced Thrombocytopen: No Hypertension: Yes Immune Disorder: No Implanted Vascular Access Dvce: No Kidney Stones: No Musculoskeletal: Yes (chronic back pain) Neurologic: No Psychiatric: No Reproductive: No Respiratory: No Immunizations Current: Yes Migraines: No Myocardial Infarction: No Renal Failure: No Seizures: No Sickle Cell Disease: No Sleep Apnea: No Thyroid Disease: Yes Ulcer: No Menopausal: Yes : 2 Para: 2 Past Surgical History Abdominal Surgery: No AICD: No Appendectomy: No Arteriovenous Shunt: No Cardiac Surgery: No Cholecystectomy: No Ear Surgery: No Endocrine Surgery: No Eye Surgery: Yes (cataracts removed giuseppe) Genitourinary Surgery: No Gynecologic Surgery: No Insulin Pump: No Joint Replacement: No Neurologic Surgery: No Oral Surgery: Yes (gingivitis) Pacemaker: No Thoracic Surgery: No Tonsillectomy: Yes Other Surgery: Yes (LIPOMA LEFT ARM) Social History Alcohol Use: Yes (OCCASIONALLY) Tobacco Use: No Substance Use: No Allergies-Medications (Allergen,Severity, Reaction): Coded Allergies: digoxin (Unverified Allergy, Severe, TOXIC, 02/17/17) doxycycline (Unverified Allergy, Intermediate, UNKNOWN, 02/17/17) minocycline (Unverified Allergy, Intermediate, UNKNOWN, 02/17/17) tigecycline (Unverified Allergy, Intermediate, UNKNOWN, 02/17/17) pantoprazole (Unverified Allergy, Unknown, 02/17/17) codeine (Unverified Adverse Reaction, Intermediate, UPSET STOMACH, ) prednisone (Unverified Adverse Reaction, Mild, Nausea/Vomiting, 02/17/17) amiodarone (Verified Adverse Reaction, Unknown, 02/17/17) amlodipine (Verified Adverse Reaction, Unknown, 02/17/17) diltiazem (Verified Adverse Reaction, Unknown, 02/17/17) Reported Meds & Prescriptions Reported Meds & Active Scripts Active Reported Prolia Inj (Denosumab) 60 Mg/Ml Inj 60 Mg SQ Q180D Lisinopril 5 Mg Tab 5 Mg PO DAILY Vitamin D3 (Cholecalciferol) 1,000 Unit Tab 1,000 Units PO DAILY Levothyroxine (Levothyroxine Sodium) 88 Mcg Tab 88 Mcg PO DAILY Ranitidine (Ranitidine HCl) 150 Mg Tab 150 Mg PO BID K-Tab (Potassium Chloride) 20 Meq Tab 20 Meq PO DAILY Lasix (Furosemide) 40 Mg Tab 40 Mg PO DAILY Eliquis (Apixaban) 5 Mg Tab 5 Mg PO BID Welchol (Colesevelam HCl) 625 Mg Tab 625 Mg PO TID Review of Systems Except as stated in HPI: all other systems reviewed are Neg General / Constitutional: No: Fever Eyes: No: Visual changes HENT: No: Headaches Cardiovascular: Positive: Irregular Rhythm, Tachycardia, Dyspnea on exertion, No: Chest Pain or Discomfort, Palpitations, Diaphoresis, Syncope, Varicosities, Edema, Cyanosis Respiratory: No: Cough, Shortness of Breath, Wheezing Gastrointestinal: No: Nausea, Vomiting, Diarrhea, Abdominal Pain Genitourinary: No: Dysuria Musculoskeletal: No: Pain Skin: No Rash Neurologic: No: Weakness Psychiatric: No: Depression Endocrine: No: Polydipsia Hematologic/Lymphatic: No: Easy Bruising Physical Exam Narrative GENERAL: Patient appears comfortable and in no acute distress. SKIN: Warm and dry. Normal color. Normal turgor. HEAD: Atraumatic. Normocephalic. EYES: Pupils equal and round. No scleral icterus. No injection or drainage. ENT: No nasal bleeding or discharge. Mucous membranes pink and moist. NECK: Trachea midline. No JVD. CARDIOVASCULAR: Tachycardic rate and normal rhythm. RESPIRATORY: No accessory muscle use. Clear to auscultation. Breath sounds equal bilaterally. GASTROINTESTINAL: Abdomen soft, non-tender, nondistended. Hepatic and splenic margins not palpable. MUSCULOSKELETAL: Extremities without clubbing, cyanosis, or edema. No obvious deformities. NEUROLOGICAL: Awake and alert. No obvious cranial nerve deficits. Motor grossly within normal limits. Five out of 5 muscle strength in the arms and legs. Normal speech. PSYCHIATRIC: Appropriate mood and affect; insight and judgment normal. Data Data Last Documented VS Vital Signs Date Time Temp Pulse Resp B/P (MAP) Pulse Ox O2 Delivery O2 Flow Rate FiO2 02/17/17 19:28 99 Nasal Cannula 2.00 02/17/17 19:28 19 02/17/17 18:24 126 02/17/17 18:01 98.5 Orders Orders Electrocardiogram (02/17/17 18:40) B-Type Natriuretic Peptide (02/17/17 18:40) Ckmb (Isoenzyme) Profile (02/17/17 18:40) Complete Blood Count With Diff (02/17/17 18:40) Comprehensive Metabolic Panel (02/17/17 18:40) Magnesium (Mg) (02/17/17 18:40) Prothrombin Time / Inr (Pt) (02/17/17 18:40) Act Partial Throm Time (Ptt) (02/17/17 18:40) Troponin I (02/17/17 18:40) Chest, Single Ap (02/17/17 18:40) Ecg Monitoring (02/17/17 18:40) Bilateral Bp Monitoring (02/17/17 18:40) Iv Access Insert/Monitor (02/17/17 18:40) Oximetry (02/17/17 18:40) Oxygen Administration (02/17/17 18:40) Sodium Chloride 0.9% Flush (Ns Flush) (02/17/17 18:45) Metoprolol Tartrate Inj (Lopressor Inj) (02/17/17 18:45) Sodium Chlorid 0.9% 500 Ml Inj (Ns 500 M (02/17/17 18:45) Urinalysis - C+S If Indicated (02/17/17 18:43) CKMB (02/17/17 19:10) CKMB% (02/17/17 19:10) Aspirin Chew (Aspirin Chew) (02/17/17 20:30) Metoprolol Tartrate (Lopressor) (02/17/17 20:30) Admit Order (Ed Use Only) (02/17/17 20:38) Labs Laboratory Tests Test 02/17/17 19:10 White Blood Count 11.4 TH/MM3 Red Blood Count 4.32 MIL/MM3 Hemoglobin 14.5 GM/DL Hematocrit 39.8 % Mean Corpuscular Volume 92.2 FL Mean Corpuscular Hemoglobin 33.7 PG Mean Corpuscular Hemoglobin Concent 36.5 % Red Cell Distribution Width 14.3 % Platelet Count 298 TH/MM3 Mean Platelet Volume 9.1 FL Neutrophils (%) (Auto) 73.4 % Lymphocytes (%) (Auto) 17.9 % Monocytes (%) (Auto) 7.6 % Eosinophils (%) (Auto) 0.5 % Basophils (%) (Auto) 0.6 % Neutrophils # (Auto) 8.4 TH/MM3 Lymphocytes # (Auto) 2.0 TH/MM3 Monocytes # (Auto) 0.9 TH/MM3 Eosinophils # (Auto) 0.1 TH/MM3 Basophils # (Auto) 0.1 TH/MM3 CBC Comment AUTO DIFF Differential Comment AUTO DIFF CONFIRMED Prothrombin Time 11.4 SEC Prothromb Time International Ratio 1.0 RATIO Activated Partial Thromboplast Time 35.7 SEC Blood Urea Nitrogen 24 MG/DL Creatinine 1.31 MG/DL Random Glucose 114 MG/DL Total Protein 7.5 GM/DL Albumin 3.7 GM/DL Calcium Level 8.7 MG/DL Magnesium Level 1.8 MG/DL Alkaline Phosphatase 64 U/L Aspartate Amino Transf (AST/SGOT) 26 U/L Alanine Aminotransferase (ALT/SGPT) 21 U/L Total Bilirubin 0.5 MG/DL Sodium Level 129 MEQ/L Potassium Level 4.0 MEQ/L Chloride Level 93 MEQ/L Carbon Dioxide Level 26.5 MEQ/L Anion Gap 10 MEQ/L Estimat Glomerular Filtration Rate 39 ML/MIN Total Creatine Kinase 137 U/L Creatine Kinase MB 4.3 NG/ML Troponin I 0.49 NG/ML B-Type Natriuretic Peptide 729 PG/ML MDM Medical Decision Making Medical Screen Exam Complete: Yes Emergency Medical Condition: Yes Medical Record Reviewed: Yes Differential Diagnosis A. fib with RVR. Atrial flutter with RVR. Tachycardia. Narrative Course Patient is currently stable. Patient discussed with Dr. Lira. Labs ordered including CBC, CMP, cardiac panel, proBNP, coagulation studies and urinalysis. IV access is obtained and patient is given a 500 mL normal saline bolus. Patient is given metoprolol 5 mg every 5 minutes per protocol. EKG shows atrial flutter/tachycardia with rapid ventricular response at 134 bpm. Chest x-ray is ordered. Chest x-ray shows: Minimal basilar atelectasis or scarring. Cardiomegaly. No pneumothorax. CBC shows slight leukocytosis of 11.4 otherwise no significant findings. Coagulation studies shows a PT of 11.4, INR 1, APTT of 35.7. CMP shows sodium 129, potassium is 4.0 chloride is 93 BUN is 24, creatinine is 1.31, GFR is 39, random glucose 114. Troponin is elevated 0.49, with a CK-MB of 4.3. ProBNP is 729 Reassessment after 3 doses of 5 mg Lopressor IV shows her blood heart rate to have improved bouncing between 90 and 110 bpm. Patient continues to be asymptomatic. Patient is discussed with Dr. Moreno. Patient was given 81 mg aspirin by mouth, as well as 25 mg metoprolol by mouth. Call was placed to the hospitalist for admission. Diagnosis Primary Impression: Atrial fibrillation with RVR Additional Impressions: Elevated troponin Hyponatremia Admitting Information Admitting Physician Requests: Admit Condition: Stable Antoni Montes Feb 17, 2017 18:28
[2017-02-17] MEDS ORDERED: SODIUM CHLORIDE 0.9% FLUSH 10 ML FLUSH IVF PRN (18:45)
[2017-02-17] MEDS ORDERED: SODIUM CHLORID 0.9% 500 ML INJ 500 ML IV ONE (18:45)
[2017-02-17] MEDS ORDERED: DENO60P SQ (18:54)
[2017-02-17] MEDS ORDERED: VITA100064 PO (18:54)
[2017-02-17] MEDS ORDERED: LEVO88TA2 PO (18:54)
[2017-02-17] MEDS ORDERED: LISI-519 PO (18:54)
[2017-02-17 19:00] VITALS: BP 114/66; PULSE 126; RESP 16; O2SAT 100
--- NOTE | 2017-02-17 19:10 | RADRPT ---
EXAM DATE/TIME: 02/17/2017 18:50 [facility] COMPARISON: No previous studies available for comparison. INDICATIONS : Chest pain MEDICAL HISTORY : Congestive heart failure. Hypertension. A-fib. Coronary artery disease SURGICAL HISTORY : None. ENCOUNTER: Initial ACUITY: 1 day PAIN SCORE: 1/10 LOCATION: chest FINDINGS: A single view of the chest demonstrates minimal basilar atelectasis or scarring. No effusion. No pneu mothorax. Cardiomegaly. CONCLUSION: 1. Minimal basilar atelectasis or scarring. Cardiomegaly. No pneumothorax. José Palacio MD on February 17, 2017 at 19:07 Board Certified Radiologist. This report was verified electronically.
[2017-02-17 19:24] LABS: AUTOMATED NEUTROPHIL # 8.4 TH/MM3 (1.8-7.7); BASOPHIL # 0.1 TH/MM3 (0-0.2); BASOPHIL % 0.6 % (0.0-2.0); EOSINOPHIL # 0.1 TH/MM3 (0-0.4); EOSINOPHIL % 0.5 % (0.0-4.0); HEMATOCRIT 39.8 % (35.0-46.0); LYMPH % 17.9 % (9.0-44.0); MEAN CELL VOLUME 92.2 FL (80.0-100.0); MEAN CORPUSCULAR HEMOGLOBIN 33.7 PG (27.0-34.0); MONO % 7.6 % (0.0-8.0); NEUT % 73.4 % (16.0-70.0); PLATELET COUNT 298 TH/MM3 (150-450); RED BLOOD COUNT 4.32 MIL/MM3 (4.00-5.30); RED CELL DISTRIBUTION WIDTH 14.3 % (11.6-17.2); WHITE BLOOD COUNT 11.4 TH/MM3 (4.0-11.0)
[2017-02-17 19:28] VITALS: RESP 19; O2SAT 99
[2017-02-17] MEDS: METOPROLOL TARTRATE 5 MG/5 ML VIAL IVS SCH ×3 (19:30→19:51)
[2017-02-17 19:35] LABS: HEMO FLAGS AUTO DIFF; MEAN CORPUSCULAR HGB CONC 36.5 % (32.0-36.0)
[2017-02-17 19:48] LABS: ANION GAP 10 MEQ/L (5-15); AST (GOT) 26 U/L (15-37); BICARBONATE 26.5 MEQ/L (21.0-32.0); BLOOD UREA NITROGEN 24 MG/DL (7-18); CHLORIDE 93 MEQ/L (98-107); GLOMERULAR FILTRATION RATE 39 ML/MIN (>89); MAGNESIUM 1.8 MG/DL (1.5-2.5); SODIUM (NA) 129 MEQ/L (136-145)
[2017-02-17 19:51] LABS: APTT (PATIENT) 35.7 SEC (24.3-30.1); PROTHROMBIN TIME - PATIENT 11.4 SEC (9.8-11.6)
[2017-02-17 19:54] LABS: ALKALINE PHOSPHATASE 64 U/L (45-117); ALT (GPT) 21 U/L (10-53); CREATINE KINASE 137 U/L (26-192); TOTAL BILIRUBIN ADULT 0.5 MG/DL (0.2-1.0)
[2017-02-17 20:00] VITALS: BP 108/61; PULSE 122; RESP 16; O2SAT 100
[2017-02-17 20:06] LABS: CKMB 4.3 NG/ML (0.5-3.6)
[2017-02-17 20:09] LABS: SCAN/DIFF AUTO DIFF CONFIRMED
[2017-02-17] MEDS ORDERED: METOPROLOL TARTRATE 25 MG TAB PO ONE (20:30)
[2017-02-17] MEDS ORDERED: ASPIRIN 81 MG CHEW TAB CHEW ONE (20:30)
--- NOTE | 2017-02-17 20:52 | HHI.HP ---
[facility] Malachi Hua MD Admission Diagnosis Afib with RVR/Elevated troponin Diagnoses: (1) A-fib Diagnosis: Principal (2) TINA (acute kidney injury) Diagnosis: Principal (3) Elevated troponin Diagnosis: Principal (4) CHF (congestive heart failure) Diagnosis: Principal (5) Hyponatremia Diagnosis: Principal Travel History International Travel<30 Days: No Contact w/Intl Traveler <30 Da: No Traveled to Known Affected Are: No History of Present Illness This is an 86-year-old female with a PMH of HTN, A. fib/A flutter on Eliquis, Depression, Hyperlipidemia and Hypothyroidism who presented to the ER w/ complaints of generalized weakness and mild palpitations. On arrival, found to be in A-fib w/ RVR, HR 130's. Follows w/ Dr. Pickard as outpatient, s/p Ablation 07/03/16. States she lives in [place] for part of the year, was seen by her [employer] in Dec 2016 for similar complaints, found to have Afib w/ RVR requiring Cardioversion x3. Reports ALLERGY to Diltiazem, Amiodarone and Digoxin, however upon further questioning, pt seems to have adverse reaction rather than allergy, no reports hives/swelling, only notes feeling "out of sorts ". Only on Norvasc at home. S/p Metoprolol 5mg IV in ER in addition to Metoprolol 25mg PO. HR currently 110's. BP 112/62. WBC 11.4. Creatinine 1.31 , producing 1.13 and 06/30/16. Troponin 0.49. BNP 729. UA negative. CXR with minimal basilar atelectasis. Pt without complaints of chest pain or SOB. Reports having follow up appt w/ Dr. Pickard in March. Review of Systems Except as stated in HPI: all other systems reviewed are Neg ROS: 14 point review of systems otherwise negative. Past Family Social History Past Medical History PMH: HTN, A. fib/A flutter on Eliquis, Depression, Hyperlipidemia and Hypothyroidism Past Surgical History PAST SURGICAL HISTORY: Cataract Surgery, Tonsillectomy Allergies: Coded Allergies: digoxin (Unverified Allergy, Severe, TOXIC, 02/17/17) doxycycline (Unverified Allergy, Intermediate, UNKNOWN, 02/17/17) minocycline (Unverified Allergy, Intermediate, UNKNOWN, 02/17/17) tigecycline (Unverified Allergy, Intermediate, UNKNOWN, 02/17/17) pantoprazole (Unverified Allergy, Unknown, 02/17/17) codeine (Unverified Adverse Reaction, Intermediate, UPSET STOMACH, ) prednisone (Unverified Adverse Reaction, Mild, Nausea/Vomiting, 02/17/17) amiodarone (Verified Adverse Reaction, Unknown, 02/17/17) amlodipine (Verified Adverse Reaction, Unknown, 02/17/17) diltiazem (Verified Adverse Reaction, Unknown, 02/17/17) Family History PAST FAMILY HISTORY: Reviewed. No h/o DM or CAD Social History PAST SOCIAL HISTORY: Occasional alcohol. Negative for tobacco or drugs. Physical Exam Vital Signs Vital Signs Date Time Temp Pulse Resp B/P (MAP) Pulse Ox O2 Delivery O2 Flow Rate FiO2 02/17/17 19:28 99 Nasal Cannula 2.00 02/17/17 19:28 19 99 Nasal Cannula 2.00 02/17/17 18:24 126 02/17/17 18:01 98.5 138 16 98/54 (69) 100 Physical Exam PE: GENERAL: Very pleasant elderly white female in no acute distress. HEENT: PERRLA, EOMI. No scleral icterus or conjunctival pallor. No lid lag or facial droop. CARDIOVASCULAR: Tachycardia. No obvious murmurs to auscultation. No chest tenderness to palpation. RESPIRATORY: No obvious rhonchi or wheezing. Clear to auscultation. Breath sounds equal bilaterally. GASTROINTESTINAL: Abdomen soft, non-tender, nondistended. BS normal. MUSCULOSKELETAL: Extremities without clubbing, cyanosis, or edema. No obvious deformities. NEUROLOGICAL: Awake, alert and oriented x4. No focal neurologic deficits. Moving both upper and lower extremities spontaneously. Laboratory Laboratory Tests Test 02/17/17 19:10 White Blood Count 11.4 Red Blood Count 4.32 Hemoglobin 14.5 Hematocrit 39.8 Mean Corpuscular Volume 92.2 Mean Corpuscular Hemoglobin 33.7 Mean Corpuscular Hemoglobin Concent 36.5 Red Cell Distribution Width 14.3 Platelet Count 298 Mean Platelet Volume 9.1 Neutrophils (%) (Auto) 73.4 Lymphocytes (%) (Auto) 17.9 Monocytes (%) (Auto) 7.6 Eosinophils (%) (Auto) 0.5 Basophils (%) (Auto) 0.6 Neutrophils # (Auto) 8.4 Lymphocytes # (Auto) 2.0 Monocytes # (Auto) 0.9 Eosinophils # (Auto) 0.1 Basophils # (Auto) 0.1 CBC Comment AUTO DIFF Differential Comment AUTO DIFF CONFIRMED Prothrombin Time 11.4 Prothromb Time International Ratio 1.0 Activated Partial Thromboplast Time 35.7 Blood Urea Nitrogen 24 Creatinine 1.31 Random Glucose 114 Total Protein 7.5 Albumin 3.7 Calcium Level 8.7 Magnesium Level 1.8 Alkaline Phosphatase 64 Aspartate Amino Transf (AST/SGOT) 26 Alanine Aminotransferase (ALT/SGPT) 21 Total Bilirubin 0.5 Sodium Level 129 Potassium Level 4.0 Chloride Level 93 Carbon Dioxide Level 26.5 Anion Gap 10 Estimat Glomerular Filtration Rate 39 Total Creatine Kinase 137 Creatine Kinase MB 4.3 Troponin I 0.49 B-Type Natriuretic Peptide 729 Result Diagram: 02/17/17190902/17/171909 Caprini VTE Risk Assessment Caprini VTE Risk Assessment: Mod/High Risk (score >= 2) Caprini Risk Assessment Model Point Value = 1 Point Value = 2 Point Value = 3 Point Value = 5 Age 41-60 Minor surgery BMI > 25 kg/m2 Swollen legs Varicose veins or History of unexplained or recurrent spontaneous Oral contraceptives or hormone replacement Sepsis (< 1 month) Serious lung disease, including pneumonia (< 1 month) Abnormal pulmonary function Acute myocardial infarction Congestive heart failure (< 1 month) History of inflammatory bowel disease Medical patient at bed rest Age 61-74 Arthroscopic surgery Major open surgery (> 45 min) Laparoscopic surgery (> 45 min) Malignancy Confined to bed (> 72 hours) Immobilizing plaster cast Central venous access Age >= 75 History of VTE Family history of VTE Factor V Leiden Prothrombin [id number] Lupus anticoagulant Anticardiolipin antibodies Elevated serum homocysteine Heparin-induced thrombocytopenia Other congenital or acquired thrombophilia Stroke (< 1 month) Elective arthroplasty Hip, pelvis, or leg fracture Acute spinal cord injury (< 1 month) Prophylaxis Regimen Total Risk Factor Score Risk Level Prophylaxis Regimen 0-1 Low Early ambulation 2 Moderate Order ONE of the following: *Sequential Compression Device (SCD) *Heparin 5000 units SQ BID 3-4 Higher Order ONE of the following medications: *Heparin 5000 units SQ TID *Enoxaparin/Lovenox 40 mg SQ daily (WT < 150 kg, CrCl > 30 mL/min) *Enoxaparin/Lovenox 30 mg SQ daily (WT < 150 kg, CrCl > 10-29 mL/min) *Enoxaparin/Lovenox 30 mg SQ BID (WT < 150 kg, CrCl > 30 mL/min) AND/OR *Sequential Compression Device (SCD) 5 or more Highest Order ONE of the following medications: *Heparin 5000 units SQ TID (Preferred with Epidurals) *Enoxaparin/Lovenox 40 mg SQ daily (WT < 150 kg, CrCl > 30 mL/min) *Enoxaparin/Lovenox 30 mg SQ daily (WT < 150 kg, CrCl > 10-29 mL/min) *Enoxaparin/Lovenox 30 mg SQ BID (WT < 150 kg, CrCl > 30 mL/min) AND *Sequential Compression Device (SCD) Assessment and Plan Problem List: (1) A-fib ICD Code: I48.91 - Unspecified atrial fibrillation Status: Acute (2) Elevated troponin ICD Code: R74.8 - Abnormal levels of other serum enzymes (3) CHF (congestive heart failure) ICD Code: I50.9 - Heart failure, unspecified (4) TINA (acute kidney injury) ICD Code: N17.9 - Acute kidney failure, unspecified (5) Hyponatremia ICD Code: E87.1 - Hypo-osmolality and hyponatremia Status: Acute Assessment and Plan A/P: 1. A.fib/flutter: h/o A-fib/flutter s/p ablation by Dr. Pickard 07/03/16, also follows w/ [employer] in [place], s/p Cardioversion in December before returning to [facility]. On arrival, HR 130's, EKG w/ A-flutter/tachycardia. S/p Metoprolol IV x1 and Metoprolol 25mg po in ER, HR now 110's. Multiple ALLERGIES listed, including Diltiazem, Amiodarone and Digoxin however upon questioning pt reports no hives/swelling, only feeling dizzy/loopy. Will continue w/ Metoprolol for now for rate control, may consider Diltiazem if absolutely necessary. Consult Dr. Pickard for further recommendations. 2. Elevated Trop: Trop 0.49, EKG w/ no acute ischemia, likely secondary to arrhythmia. Check serial cardiac enzymes, resume home medications. 3. CHF: Acute on Chronic. Diastolic. Echo 06/19/15 w/ EF 50-55%. BNP 729. CXR w/ no pulmonary congestion, images reviewed by me. Resume home Lasix. Monitor I/O. 4. TINA: Creatinine 1.31, previously 1.13 on 06/30/16, IVF-caution w/ CHF, repeat labs in am. 5. Hyponatremia: Na 129, likely secondary to mild dehydration. IVF-caution w / CHF as above. Repeat labs in am. 6. DVT Prophylaxis: Resume home Eliquis 7. Social work for d/c planning as needed. 8. Case discussed w/ ER physician at length Physician Certification 2 Midnight Certification Type: Admission for Inpatient Services Order for Inpatient Services The services are ordered in accordance with Medicare regulations or non- Medicare payer requirements, as applicable. In the case of services not specified as inpatient-only, they are appropriately provided as inpatient services in accordance with the 2-midnight benchmark. Estimated LOS (days): 2 days is the estimated time the patient will need to remain in the hospital, assuming treatment plan goals are met and no additional complications. Post-Hospital Plan: Not yet determined Rosa M Monzon MD Feb 17, 2017 20:52
[2017-02-17] MEDS: SODIUM CHLORIDE 0.9% FLUSH 10 ML FLUSH IV FLUSH SCH (20:57)
[2017-02-17 21:00] VITALS: BP 112/67; PULSE 128; RESP 17; O2SAT 100
[2017-02-17] MEDS ORDERED: LACTULOSE SYRUP 20 GM/30 ML CUP PO PRN (21:00)
[2017-02-17] MEDS ORDERED: METOPROLOL TARTRATE 25 MG TAB PO SCH (21:00)
[2017-02-17] MEDS ORDERED: SENNOSIDES 8.6 MG TAB PO PRN (21:00)
[2017-02-17] MEDS ORDERED: SODIUM CHLORIDE 0.9% FLUSH 10 ML FLUSH IV FLUSH PRN (21:00)
[2017-02-17] MEDS ORDERED: MORPHINE SULFATE 4 MG/ML INJ IV PUSH PRN ×2 (21:00)
[2017-02-17] MEDS ORDERED: ONDANSETRON HCL 4 MG/2 ML VIAL IVP PRN (21:00)
[2017-02-17] MEDS ORDERED: ACETAMINOPHEN 325 MG TAB PO PRN (21:00)
[2017-02-17] MEDS ORDERED: BISACODYL 10 MG SUPP RECTAL PRN (21:00)
[2017-02-17] MEDS ORDERED: MAGNESIUM HYDROXIDE SUSP 30 ML CUP PO PRN (21:00)
[2017-02-17 21:12] LABS: BACTERIA, URINE RARE /hpf; BLOOD, URINE NEG (NEG); COMMENT (UR) CULT NOT INDICATED; CULTURE IF INDICATED CULT NOT INDICATED; GLUCOSE,URINE NEG (NEG); KETONE, URINE NEG (NEG); NITRITE,URINE NEG (NEG); URINE COLOR LIGHT-YELLOW (YELLW/STRAW)
[2017-02-17] MEDS ORDERED: DEXT 5%-NACL 0.9% 500 ML INJ 500 ML IV ONE (21:30)
[2017-02-17] MEDS: APIXABAN 5 MG TABLET PO SCH (21:58)
[2017-02-17] MEDS: FAMOTIDINE 20 MG TAB PO SCH (21:58)
[2017-02-17 22:00] VITALS: BP 92/52; PULSE 124; RESP 15; O2SAT 100
[2017-02-17] MEDS: DOCUSATE SODIUM 50 MG/SENNA 8.6 MG TAB PO SCH (22:04)
[2017-02-18] VITALS (13 sets, daily range): BP systolic 107–131; BP diastolic 50–74; PULSE 62–133; RESP 14–28; TEMP 97.8–98; O2SAT 95–100
[2017-02-18 02:58] LABS: BICARBONATE 23.4 MEQ/L (21.0-32.0); CALCIUM-PROTEIN CORRECTED 7.6 MG/DL (8.5-10.1); POTASSIUM 3.4 MEQ/L (3.5-5.1); TOTAL BILIRUBIN ADULT 0.3 MG/DL (0.2-1.0)
[2017-02-18 06:24] LABS: AUTOMATED NEUTROPHIL # 4.8 TH/MM3 (1.8-7.7); BASOPHIL # 0.1 TH/MM3 (0-0.2); BASOPHIL % 0.9 % (0.0-2.0); EOSINOPHIL # 0.1 TH/MM3 (0-0.4); EOSINOPHIL % 1.2 % (0.0-4.0); HEMATOCRIT 40.7 % (35.0-46.0); HEMO FLAGS DIFF FINAL; LYMPH % 29.9 % (9.0-44.0); LYMPHOCYTE # 2.5 TH/MM3 (1.0-4.8); MEAN CELL VOLUME 92.4 FL (80.0-100.0); MEAN CORPUSCULAR HEMOGLOBIN 31.8 PG (27.0-34.0); MEAN CORPUSCULAR HGB CONC 34.5 % (32.0-36.0); MONO % 10.1 % (0.0-8.0); NEUT % 57.9 % (16.0-70.0); PLATELET COUNT 295 TH/MM3 (150-450); RED BLOOD COUNT 4.41 MIL/MM3 (4.00-5.30); RED CELL DISTRIBUTION WIDTH 14.1 % (11.6-17.2); WHITE BLOOD COUNT 8.3 TH/MM3 (4.0-11.0)
[2017-02-18] MEDS: LEVOTHYROXINE SODIUM 88 MCG TAB PO SCH (06:43)
--- NOTE | 2017-02-18 07:07 | EKG ---
Date Performed: 02/17/2017 Time Performed: 18:27:39 PTAGE: 86 years EKG: ATRIAL FLUTTER/TACHYCARDIA WITH 2:1 AV CONDUCTION LEFT VENTRICULAR HYPERTROPHY AND ST-T CYNDI NGE LATERAL ST/T ABNORMALITY, CONSIDER ISCHEMIA ABNORMAL ECG PREVIOUS TRACING : 06/30/2016 18.07 Compared to previous tracing, atrial tachycardia/flutter winston s replaced Sinus rhythm , heart rate has increased, lateral ST/T changes are now evident. DOCTOR: Matt Watters Interpretating Date/Time 02/18/2017 07:06:35
--- NOTE | 2017-02-18 08:27 | EKG ---
Date Performed: 02/18/2017 Time Performed: 02:08:31 PTAGE: 86 years EKG: POSSIBLE ATRIAL FLUTTER/TACHYCARDIA WITH VARIABLE AV CONDUCTION POSSIBLE RIGHT VENTRICULAR CONDUCTION DELAY LEFT VENTRICULAR HYPERTROPHY AND ST-T CHANGE LATERAL T WAVE ABNORMALITY, CONSIDER IS CHEMIA ABNORMAL ECG NO PREVIOUS TRACING DOCTOR: Matt Watters Interpretating Date/Time 02/18/2017 08:25:52
[2017-02-18] MEDS: CHOLECALCIFEROL (VIT D3) 1000 UNIT TAB PO SCH (08:56)
[2017-02-18] MEDS: FUROSEMIDE 40 MG TAB PO SCH (08:56)
[2017-02-18] MEDS: FAMOTIDINE 20 MG TAB PO SCH (08:56)
[2017-02-18] MEDS: SODIUM CHLORIDE 0.9% FLUSH 10 ML FLUSH IV FLUSH SCH ×2 (08:57→20:35)
[2017-02-18] MEDS: METOPROLOL TARTRATE 25 MG TAB PO SCH ×2 (08:57→20:35)
[2017-02-18] MEDS: POTASSIUM CHLORIDE 20 MEQ CONTROLLED RELEASE TAB PO SCH (08:57)
[2017-02-18] MEDS: APIXABAN 5 MG TABLET PO SCH ×2 (08:57→20:35)
[2017-02-18] MEDS: DOCUSATE SODIUM 50 MG/SENNA 8.6 MG TAB PO SCH ×2 (08:57→20:35)
[2017-02-18] MEDS ORDERED: LISINOPRIL 5 MG TAB PO SCH (09:00)
[2017-02-18] MEDS ORDERED: POTASSIUM CHLORIDE 10 MEQ CONTROLLED RELEASE TAB PO ONE (09:00)
--- NOTE | 2017-02-18 09:28 | HHI.PR ---
Subjective Remarks RN - paged regaring pt's HR in 130s this AM with lightheadedness. Pt clarifies no jcarlos allergy to diltiazem, thought it made her BP low in the past. Will start cardizem drip for 10-15 min, will observe, if no adverse reaction will then proceed with oral cardizem whereas EP consult pending. troponins elevated - pt not c/o any CP. Patient thinks that she has slightly increased left lower extremity edema compared to her baseline Patient denies any chest pain at this time. She says she last saw Dr. Pickard in June. Objective Vital Signs Date Time Temp Pulse Resp B/P (MAP) Pulse Ox O2 Delivery O2 Flow Rate FiO2 02/18/17 07:09 102 16 111/69 (83) 96 Room Air 02/18/17 02:24 62 14 111/65 (80) 96 Room Air 02/18/17 00:00 86 16 128/59 (82) 100 Room Air 02/17/17 22:00 124 15 92/52 (65) 100 Room Air 02/17/17 21:00 128 17 112/67 (82) 100 Room Air 02/17/17 20:00 122 16 108/61 (77) 100 Room Air 02/17/17 19:28 99 Nasal Cannula 2.00 02/17/17 19:28 19 99 Nasal Cannula 2.00 02/17/17 19:00 126 16 114/66 (82) 100 Room Air 02/17/17 18:24 126 02/17/17 18:01 98.5 138 16 98/54 (69) 100 Result Diagram: 02/18/17 0550 02/18/17 0210 Objective Remarks Heart rate is irregular and tachycardic Otherwise patient is alert and awake, no acute distress, has very mild lower extremity edema that is simply +1 at best A/P Assessment and Plan 1. A.fib/flutter: h/o A-fib/flutter s/p ablation by Dr. Pickard 07/03/16, also follows w/ [employer] in [place], s/p Cardioversion in December before returning to [facility]. On arrival, HR 130's, EKG w/ A-flutter/tachycardia. S/p Metoprolol IV x1 and Metoprolol 25mg po in ER, pulse ranging form 110-130s despite this. Will continue w/ Metoprolol for now for rate control, I will start a diltiazem drip and observe for the 10-15 minutes for any severe allergic reaction. If stable, we'll transition to oral Cardizem by mouth 30 mg every 6 hours. EP consult pending. 2. Elevated Trop: showed sustained climb to 0.57, cardiology consulted 3. CHF: Acute on Chronic. Diastolic. Echo 06/19/15 w/ EF 50-55%. BNP 729. continue home lisinopril 4. TINA: resolved 5. Hyponatremia: resolved (now at 137). No longer D5/NS 6. DVT Prophylaxis: home Omi Bardales MD Feb 18, 2017 09:28
[2017-02-18] MEDS: DILTIAZEM INJ 125 MG in SODIUM CHLORIDE 0.9% INJ 100 ML IV PRN (09:49)
[2017-02-18] MEDS: LISINOPRIL 5 MG TAB PO SCH (10:15)
[2017-02-18] MEDS: COLESEVELAM HCL 625 MG TAB PO SCH ×3 (11:14→17:17)
[2017-02-18] MEDS ORDERED: diphenhydrAMINE HCL 25 MG CAP PO ONE (22:00)
--- NOTE | 2017-02-18 22:21 | MB ---
cc: URSZULA DOTY M.D. DATE OF CONSULTATION 02/18/2017 Electrophysiology consultation REASON FOR CONSULTATION Atrial fibrillation, atrial tachycardia with rapid ventricular response, unable to control with medication. HISTORY OF THE PRESENT ILLNESS Ms. Romo is an 86-year-old female with history of tachyarrhythmia, previous episode of atrial flutter, previous ablation, [place] cardio[place] admitted due to atrial fibrillation with rapid ventricular response. She is on multiple medication. Heart rate difficult to control. I was consulted for evaluation and management. The chart was reviewed. The patient was evaluated. ALLERGIES DIGOXIN, DOXYCYCLINE, MINOCYCLINE, PROTONIX, CODEINE, PREDNISONE, AMIODARONE, AMLODIPINE AND CARDIZEM. FAMILY HISTORY Noncontributory to her current medical condition. MEDICATIONS The patient currently on: 1. Cardizem IV. 2. Acetaminophen. 3. Eliquis 5 mg twice a day. 4. Pepcid. 5. Lasix 40 mg a day. 6. Levoxyl 88 mcg a day. 7. Lisinopril 5 mg a day. 8. Metoprolol 25 mg q.12h. 9. Potassium. REVIEW OF SYSTEMS Currently she refers some palpitation but no chest pain, no discomfort. PHYSICAL EXAMINATION GENERAL: Alert, fully oriented. VITAL SIGNS: Her blood pressure 122/54, pulse around 110, respiratory rate 18. LUNGS: Ventilated. CARDIOVASCULAR: S1-S2, tachycardic, irregular. ABDOMEN: Soft. No mass. No bruit. EXTREMITIES: No edema. Electrocardiogram shows atrial fibrillation, atrial tachycardia with rapid ventricular response. ASSESSMENT AND RECOMMENDATIONS Mrs. Romo has recurrent episodes of tachyarrhythmia. She had a previous atrial flutter ablation. This is clearly atrial fibrillation. She has previous cardioversion [place]. Electrophysiology study and atrial fibrillation ablation discussed. The risks, the nature and the benefit of the procedure are clearly stated to her. The risks include pneumothorax, cardiac perforation, stroke and even . She understood and agreed to proceed. Procedure will be performed during hospitalization. Urszula Doty MD HS/KK /9:38 PM /10:02 PM
[2017-02-19] VITALS (17 sets, daily range): BP systolic 95–132; BP diastolic 51–62; PULSE 69–143; RESP 20–29; TEMP 96.5–98.5; O2SAT 96–98
[2017-02-19] MEDS: DILTIAZEM INJ 125 MG in SODIUM CHLORIDE 0.9% INJ 100 ML IV PRN ×2 (02:08→13:49)
[2017-02-19] MEDS: LEVOTHYROXINE SODIUM 88 MCG TAB PO SCH (05:24)
[2017-02-19] MEDS: DOCUSATE SODIUM 50 MG/SENNA 8.6 MG TAB PO SCH (08:02)
[2017-02-19] MEDS: COLESEVELAM HCL 625 MG TAB PO SCH ×3 (08:02→17:48)
[2017-02-19] MEDS: CHOLECALCIFEROL (VIT D3) 1000 UNIT TAB PO SCH (08:02)
[2017-02-19] MEDS: FAMOTIDINE 20 MG TAB PO SCH (08:03)
[2017-02-19] MEDS: FUROSEMIDE 40 MG TAB PO SCH (08:03)
[2017-02-19] MEDS: POTASSIUM CHLORIDE 20 MEQ CONTROLLED RELEASE TAB PO SCH (08:03)
[2017-02-19] MEDS: APIXABAN 5 MG TABLET PO SCH ×2 (08:03→21:09)
[2017-02-19] MEDS: SODIUM CHLORIDE 0.9% FLUSH 10 ML FLUSH IV FLUSH SCH ×2 (08:03→21:00)
[2017-02-19] MEDS: LISINOPRIL 5 MG TAB PO SCH (09:00)
[2017-02-19] MEDS ORDERED: DIGOXIN 0.5 MG/2 ML VIAL IV PUSH ONE ×2 (09:00→18:30)
[2017-02-19] MEDS: METOPROLOL TARTRATE 25 MG TAB PO SCH ×2 (09:00→21:00)
--- NOTE | 2017-02-19 15:18 | HHI.PR ---
Subjective Remarks Follow-up tachyrhythmia 02/19/17-patient seen and examined, reports some fluttering or denies any chest pain. BP low however HR is up Objective Vitals Vital Signs Date Time Temp Pulse Resp B/P (MAP) Pulse Ox O2 Delivery O2 Flow Rate FiO2 02/19/17 14:00 70 02/19/17 13:49 67 99/49 02/19/17 12:30 73 120/61 02/19/17 12:00 97.9 70 20 118/56 (76) 97 02/19/17 12:00 70 02/19/17 12:00 70 118/56 02/19/17 10:15 69 22 100/51 (67) 97 02/19/17 10:00 73 28 111/53 (72) 96 02/19/17 09:45 97 29 103/51 (68) 97 02/19/17 09:30 139 20 95/54 (68) 98 02/19/17 09:15 143 22 100/56 (71) 98 02/19/17 09:00 140 21 99/55 (70) 98 02/19/17 08:45 143 23 107/62 (77) 98 02/19/17 08:30 141 22 102/60 (74) 97 02/19/17 08:30 141 102/60 02/19/17 08:15 141 24 108/62 (77) 97 02/19/17 08:00 143 02/19/17 08:00 97.7 143 20 107/57 (74) 97 02/19/17 08:00 143 107/57 02/19/17 07:00 134 90/55 02/19/17 06:00 133 83/61 02/19/17 04:00 97.8 138 20 109/62 (78) 96 02/19/17 04:00 138 109/62 02/19/17 04:00 138 02/19/17 02:46 94 79/49 02/19/17 02:16 72 77/53 02/19/17 02:08 93 106/53 02/19/17 01:07 132 100/57 02/19/17 00:00 96.5 136 24 102/57 (72) 98 02/19/17 00:00 136 02/18/17 23:44 138 110/58 02/18/17 20:00 108 02/18/17 20:00 98.0 108 28 122/54 (76) 98 02/18/17 19:00 72 113/56 02/18/17 18:20 94 92/51 02/18/17 18:00 132 02/18/17 18:00 74 80/46 02/18/17 17:41 137 115/57 02/18/17 17:24 139 112/61 02/18/17 17:00 129 112/61 02/18/17 16:00 97.8 74 20 124/54 (77) 97 02/18/17 16:00 74 I/O 02/18/17 02/18/17 02/18/17 02/19/17 02/19/17 02/19/17 07:00 15:00 23:00 07:00 15:00 23:00 Intake Total 1920 ml 252 ml 52 ml Balance 1920 ml 252 ml 52 ml Intake Oral 1920 ml 100 ml IV Total 152 ml 52 ml # Voids 7 4 # Bowel Movements 3 0 Result Diagram: 02/18/17 0550 02/18/17 0210 Imaging Last Impressions Chest X-Ray 02/17/17 1840 Signed Impressions: Service Date/Time: Friday, February 17, 2017 18:50 - CONCLUSION: 1. Minimal basilar atelectasis or scarring. Cardiomegaly. No pneumothorax. José Palacio MD Objective Remarks GENERAL: NAD SKIN: Warm and dry. HEAD: Normocephalic. EYES: No scleral icterus. No injection or drainage. NECK: Supple, trachea midline. No JVD or lymphadenopathy. CARDIOVASCULAR: Irregular Regular rate and rhythm without murmurs, gallops, or rubs. RESPIRATORY: Breath sounds equal bilaterally. No accessory muscle use. GASTROINTESTINAL: Abdomen soft, non-tender, nondistended. MUSCULOSKELETAL: No cyanosis, or edema. BACK: Nontender without obvious deformity. No CVA tenderness. A/P Problem List: (1) A-fib ICD Code: I48.91 - Unspecified atrial fibrillation Status: Acute (2) Elevated troponin ICD Code: R74.8 - Abnormal levels of other serum enzymes (3) CHF (congestive heart failure) ICD Code: I50.9 - Heart failure, unspecified (4) TINA (acute kidney injury) ICD Code: N17.9 - Acute kidney failure, unspecified (5) Hyponatremia ICD Code: E87.1 - Hypo-osmolality and hyponatremia Status: Acute Assessment and Plan 86-year-old female with Tachyrhythmia: h/o A-fib/flutter s/p ablation by Dr. Pickard 07/03/16 Plan for cardiac ablation 02/20/17 Currently on Cardizem drip PAF with RVR Currently on Cardizem drip Plan for cardiac ablation 02/20/17 Continue Eliqujocelyn Elevated Trop From above Awaiting for cardiac ablation Acute on chronic diastolic CHF Echo 06/19/15 w/ EF 50-55% continue home lisinopril, Prinivil 5 mg daily TINA: resolved Hyponatremia Resolved Hypothyroidism Continue Synthroid Hyperlipidemia On WelChol DVT Prophylaxis: home Carrington Gamboa MD Feb 19, 2017 15:18
[2017-02-19] MEDS ORDERED: DIGOXIN 0.5 MG/2 ML VIAL IV PUSH PRN (19:45)
--- NOTE | 2017-02-19 21:35 | HHI.PR ---
Subjective Remarks Recurrent palpitation Objective Vital Signs Date Time Temp Pulse Resp B/P (MAP) Pulse Ox O2 Delivery O2 Flow Rate FiO2 02/19/17 18:04 145 115/69 02/19/17 17:00 127 116/77 02/19/17 16:09 74 02/19/17 16:00 98.5 86 22 132/57 (82) 97 02/19/17 14:00 70 02/19/17 13:49 67 99/49 02/19/17 12:30 73 120/61 02/19/17 12:00 97.9 70 20 118/56 (76) 97 02/19/17 12:00 70 02/19/17 12:00 70 118/56 02/19/17 10:15 69 22 100/51 (67) 97 02/19/17 10:00 73 28 111/53 (72) 96 02/19/17 09:45 97 29 103/51 (68) 97 02/19/17 09:30 139 20 95/54 (68) 98 02/19/17 09:15 143 22 100/56 (71) 98 02/19/17 09:00 140 21 99/55 (70) 98 02/19/17 08:45 143 23 107/62 (77) 98 02/19/17 08:30 141 22 102/60 (74) 97 02/19/17 08:30 141 102/60 02/19/17 08:15 141 24 108/62 (77) 97 02/19/17 08:00 143 02/19/17 08:00 97.7 143 20 107/57 (74) 97 02/19/17 08:00 143 107/57 02/19/17 07:00 134 90/55 02/19/17 06:00 133 83/61 02/19/17 04:00 97.8 138 20 109/62 (78) 96 02/19/17 04:00 138 109/62 02/19/17 04:00 138 02/19/17 02:46 94 79/49 02/19/17 02:16 72 77/53 02/19/17 02:08 93 106/53 02/19/17 01:07 132 100/57 02/19/17 00:00 96.5 136 24 102/57 (72) 98 02/19/17 00:00 136 02/18/17 23:44 138 110/58 I/O 02/18/17 02/18/17 02/18/17 02/19/17 02/19/17 02/19/17 07:00 15:00 23:00 07:00 15:00 23:00 Intake Total 1920 ml 252 ml 52 ml 986.6 ml Balance 1920 ml 252 ml 52 ml 986.6 ml Intake Oral 1920 ml 100 ml 960 ml IV Total 152 ml 52 ml 26.6 ml # Voids 7 4 6 # Bowel Movements 3 0 1 Result Diagram: 02/18/17 0550 02/18/17 0210 Imaging Alert, fully oriented Lungs: ventilated Heart: S1, S2 irregular Abdomen: soft, no mass Ext: no edema Last Impressions Chest X-Ray 02/17/17 1840 Signed Impressions: Service Date/Time: Friday, February 17, 2017 18:50 - CONCLUSION: 1. Minimal basilar atelectasis or scarring. Cardiomegaly. No pneumothorax. José Palacio MD Current Medications Medications (Trade) Dose Ordered Sig/Sammy Route Start Time Stop Time Status Last Admin (NS Flush) 2 ml UNSCH PRN IVF 02/17/17 18:45 (NS Flush) 2 ml UNSCH PRN IV FLUSH 02/17/17 21:00 (NS Flush) 2 ml BID IV FLUSH 02/17/17 21:00 02/18/17 08:57 (Zofran Inj) 4 mg Q6H PRN IVP 02/17/17 21:00 (Tylenol) 650 mg Q6H PRN PO 02/17/17 21:00 (Morphine Inj) 1 mg Q3H PRN IV PUSH 02/17/17 21:00 (Morphine Inj) 2 mg Q3H PRN IV PUSH 02/17/17 21:00 (Milk Of Magnesia Liq) 30 ml Q12H PRN PO 02/17/17 21:00 (Eliquis) 5 mg BID PO 02/17/17 21:00 02/19/17 21:09 (Welchol) 625 mg TID PO 02/18/17 09:00 02/19/17 17:48 (Lasix) 40 mg DAILY PO 02/18/17 09:00 02/19/17 08:03 (Synthroid) 88 mcg DAILY@0600 PO 02/18/17 06:00 02/19/17 05:24 (Pepcid) 20 mg DAILY PO 02/17/17 21:00 02/19/17 08:03 (Lopressor) 25 mg Q12HR PO 02/18/17 09:00 (KCl) 20 meq DAILY PO 02/18/17 09:00 02/19/17 08:03 (Vitamin D3) 1,000 units DAILY PO 02/18/17 09:00 02/19/17 08:02 Diltiazem HCl 125 mg/Sodium Chloride 125 ml @ 5 mls/hr TITRATE PRN IV 02/18/17 09:30 02/19/17 13:49 (Prinivil) 5 mg DAILY PO 02/18/17 10:15 (Lanoxin Inj) 0.5 mg UNSCH X1 PRN IV PUSH 02/19/17 19:45 02/20/17 08:00 Assessment and Plan Problem List: (1) Atrial fibrillation with RVR ICD Codes: I48.91 - Unspecified atrial fibrillation Status: Acute Plan: In atrial fibrillation. HR control now but spike on multiple occasions Very difficult to control Electrophysiology and ablation tomorrow case extensively discussed with patient (2) Fatigue ICD Codes: R53.83 - Other fatigue Status: Acute Plan: Most likely due to afib with FVR Leo Pickard MD Feb 19, 2017 21:35
[2017-02-20] VITALS: BP 112/67; PULSE 72; RESP 25; TEMP 97.6; O2SAT 97
[2017-02-20] MEDS: DILTIAZEM INJ 125 MG in SODIUM CHLORIDE 0.9% INJ 100 ML IV PRN ×2 (01:33→16:48)
[2017-02-20 04:00] VITALS: BP 115/83; PULSE 134; RESP 21; TEMP 97.5; O2SAT 96
[2017-02-20] MEDS: LEVOTHYROXINE SODIUM 88 MCG TAB PO SCH (05:08)
[2017-02-20 08:00] VITALS: BP 114/75; PULSE 134; PULSE 52; RESP 38; TEMP 97.4; O2SAT 97
[2017-02-20] MEDS: FUROSEMIDE 40 MG TAB PO SCH (08:40)
[2017-02-20] MEDS: CHOLECALCIFEROL (VIT D3) 1000 UNIT TAB PO SCH (08:40)
[2017-02-20] MEDS: POTASSIUM CHLORIDE 20 MEQ CONTROLLED RELEASE TAB PO SCH (08:40)
[2017-02-20] MEDS: COLESEVELAM HCL 625 MG TAB PO SCH ×3 (08:40→16:47)
[2017-02-20] MEDS: FAMOTIDINE 20 MG TAB PO SCH (08:40)
[2017-02-20] MEDS: LISINOPRIL 5 MG TAB PO SCH (08:40)
[2017-02-20] MEDS: METOPROLOL TARTRATE 25 MG TAB PO SCH ×2 (08:41→09:00)
[2017-02-20] MEDS: SODIUM CHLORIDE 0.9% FLUSH 10 ML FLUSH IV FLUSH SCH ×2 (08:41→23:26)
--- NOTE | 2017-02-20 10:10 | HHI.PR ---
Subjective Remarks Follow-up tachyrhythmia 02/19/17-patient seen and examined, reports some fluttering or denies any chest pain. BP low however HR is up 02/20/17-patient seen and examined, currently rate controlled. Occasional heart fluttering but denies any chest pain. Plan for cardiac ablation today Objective Vitals Vital Signs Date Time Temp Pulse Resp B/P (MAP) Pulse Ox O2 Delivery O2 Flow Rate FiO2 02/20/17 08:48 66 112/56 02/20/17 08:00 52 02/20/17 08:00 97.4 134 38 114/75 (88) 97 02/20/17 07:00 68 113/57 02/20/17 06:00 67 120/56 02/20/17 04:00 97.5 134 21 115/83 (94) 96 02/20/17 04:00 134 02/20/17 01:33 130 119/64 02/20/17 00:00 97.6 72 25 112/67 (82) 97 02/20/17 00:00 72 02/19/17 22:30 69 125/60 02/19/17 20:00 69 02/19/17 20:00 97.8 69 24 109/55 (73) 98 02/19/17 19:00 75 107/55 02/19/17 18:04 145 115/69 02/19/17 17:00 127 116/77 02/19/17 16:09 74 02/19/17 16:00 98.5 86 22 132/57 (82) 97 02/19/17 14:00 70 02/19/17 13:49 67 99/49 02/19/17 12:30 73 120/61 02/19/17 12:00 97.9 70 20 118/56 (76) 97 02/19/17 12:00 70 02/19/17 12:00 70 118/56 02/19/17 10:15 69 22 100/51 (67) 97 I/O 02/19/17 02/19/17 02/19/17 02/20/17 02/20/17 02/20/17 06:59 14:59 22:59 06:59 14:59 22:59 Intake Total 252 ml 52 ml 986.6 ml 252.5 ml Balance 252 ml 52 ml 986.6 ml 252.5 ml Intake Oral 100 ml 960 ml 100 ml IV Total 152 ml 52 ml 26.6 ml 152.5 ml # Voids 4 6 5 # Bowel Movements 0 1 0 Result Diagram: 02/18/17 0550 02/18/17 0210 Imaging Last Impressions Chest X-Ray 02/17/17 1840 Signed Impressions: Service Date/Time: Friday, February 17, 2017 18:50 - CONCLUSION: 1. Minimal basilar atelectasis or scarring. Cardiomegaly. No pneumothorax. José Palacio MD Objective Remarks GENERAL: NAD SKIN: Warm and dry. HEAD: Normocephalic. EYES: No scleral icterus. No injection or drainage. NECK: Supple, trachea midline. No JVD or lymphadenopathy. CARDIOVASCULAR: Irregular Regular rate and rhythm without murmurs, gallops, or rubs. RESPIRATORY: Breath sounds equal bilaterally. No accessory muscle use. GASTROINTESTINAL: Abdomen soft, non-tender, nondistended. MUSCULOSKELETAL: No cyanosis, or edema. BACK: Nontender without obvious deformity. No CVA tenderness. A/P Problem List: (1) A-fib ICD Code: I48.91 - Unspecified atrial fibrillation Status: Acute (2) Elevated troponin ICD Code: R74.8 - Abnormal levels of other serum enzymes (3) CHF (congestive heart failure) ICD Code: I50.9 - Heart failure, unspecified (4) TINA (acute kidney injury) ICD Code: N17.9 - Acute kidney failure, unspecified (5) Hyponatremia ICD Code: E87.1 - Hypo-osmolality and hyponatremia Status: Acute Assessment and Plan 86-year-old female with Tachyrhythmia: h/o A-fib/flutter s/p ablation by Dr. Pickard 07/03/16 Plan for cardiac ablation today 02/20/17 Currently rate control careful with DC Cardizem drip Continue by mouth Lopresso PAF with RVR Currently on Cardizem drip however rate control, therefore discontinue it Plan for cardiac ablation today 02/20/17 Hold Eliquis and continue by mouth Lopressor Elevated Trop From above Awaiting for cardiac ablation Acute on chronic diastolic CHF Echo 06/19/15 w/ EF 50-55% continue home lisinopril, Prinivil 5 mg daily TINA: resolved Hyponatremia Resolved Hypothyroidism Continue Synthroid Hyperlipidemia On WelChol DVT Prophylaxis: home Eliquis Pontey,Carrington MD Feb 20, 2017 10:10
[2017-02-20 12:00] VITALS: BP 134/62; PULSE 66; RESP 44; TEMP 97.2; O2SAT 100
[2017-02-20 12:16] LABS: AUTOMATED NEUTROPHIL # 7.6 TH/MM3 (1.8-7.7); BASOPHIL # 0.1 TH/MM3 (0-0.2); BASOPHIL % 0.9 % (0.0-2.0); EOSINOPHIL # 0.1 TH/MM3 (0-0.4); EOSINOPHIL % 0.8 % (0.0-4.0); HEMATOCRIT 42.4 % (35.0-46.0); HEMO FLAGS DIFF FINAL; LYMPH % 21.3 % (9.0-44.0); LYMPHOCYTE # 2.3 TH/MM3 (1.0-4.8); MEAN CELL VOLUME 92.4 FL (80.0-100.0); MEAN CORPUSCULAR HEMOGLOBIN 30.6 PG (27.0-34.0); MEAN CORPUSCULAR HGB CONC 33.1 % (32.0-36.0); PLATELET COUNT 341 TH/MM3 (150-450); RED BLOOD COUNT 4.59 MIL/MM3 (4.00-5.30); RED CELL DISTRIBUTION WIDTH 14.1 % (11.6-17.2)
[2017-02-20 12:21] LABS: PROTHROMBIN TIME - PATIENT 10.7 SEC (9.8-11.6)
[2017-02-20 12:32] LABS: BICARBONATE 23.8 MEQ/L (21.0-32.0); POTASSIUM 4.6 MEQ/L (3.5-5.1)
[2017-02-20 16:00] VITALS: BP 120/58; PULSE 83; RESP 28; TEMP 97.3; O2SAT 97
[2017-02-20] MEDS ORDERED: HEPARIN-NS/PF INJ 1,000 ML ONE (18:14)
[2017-02-20] MEDS ORDERED: LEVOFLOXACIN 500 MG PREMIX INJ 100 ML IV ONE (18:32)
[2017-02-20] MEDS ORDERED: ISOPROTERENOL HCL 1 MG/5 ML AMP ONE (18:43)
[2017-02-20] MEDS ORDERED: HEPARIN SODIUM - IV 10,000 UNITS/10 ML VIAL ONE (18:44)
[2017-02-20] MEDS ORDERED: PROTAMINE SULFATE 50 MG/5 ML VIAL ONE (18:45)
[2017-02-20] MEDS ORDERED: HEPARIN-D5W 25,000 U/250 ML 250 ML ONE (19:07)
[2017-02-20] MEDS ORDERED: oxyCODONE/ACETAMINOPHEN 5 MG/325 MG TAB PO PRN ×2 (20:15)
[2017-02-20] MEDS ORDERED: ATROPINE SULFATE 1 MG/ML VIAL IV PUSH PRN (20:15)
[2017-02-20] MEDS ORDERED: LORazepam 2 MG/ML VIAL IV PUSH PRN (20:15)
[2017-02-20] MEDS ORDERED: BACITRACIN OINT 0.9 GM PKT TOP ONE (20:15)
[2017-02-20] MEDS ORDERED: SODIUM CHLOR 0.9% 250 ML INJ 250 ML IV PRN (20:15)
[2017-02-20] MEDS ORDERED: ONDANSETRON HCL 4 MG/2 ML VIAL IV PUSH PRN (20:15)
[2017-02-20] MEDS ORDERED: METOCLOPRAMIDE HCL 10 MG/2 ML VIAL IV PUSH PRN (20:15)
[2017-02-20] MEDS ORDERED: LIDOCAINE HCL 1% 50 ML VIAL INFIL PRN (20:15)
--- NOTE | 2017-02-20 21:01 | CATHPROC ---
[employer] HIS Report Study Information Study Number Scheduled Start Study Start [id number] 02/20/2017 Feb 20 2017 6:03PM Referring Institution Admit Source Facility Department 1 Other [facility] - Class C Truck Driver Physician and Clinical Staff Initial Leo Ayala Transportation Maintenance Operator Marlon Sams,RT(R) Other Anesthesia, SIGN BUILDER Recorder Nasreen Velazquez,RN Soledadub Courtney Rollins,RT(R) TECH2 Procedures Performed Procedure Location (Site) Vessel Name ICE CATHETER INSERT RA Atruim RF Ablation LT. ATRIUM LT. ATRIUM Equipment Time Sql Consultant Description Size Mfg Part Number Used/Scraped NEEDLE, TRANSSEPTAL NRG 98 18:05 [facility] [id number] Used C1 [employer]/ EP 18:05 KIT, TRANSDUCER / AFIB [id number] Used PACER [id number] CATHETER, TACTICATH ABLAT BUNDLE 18:05 BUNDLE-ST. TOM Used 65 BUNDLE *[id number] BUNDLE [id number] CATHETER, FR7 OPTIMA SPIRAL 18:05 BUNDLE-ST. TOM FR7 *[id number]- Used BUNDLE BUNDLE [id number] 18:05 BUNDLE-ST. TOM CATHETER, JSN, QUAD BUNDLE FR 5 *[id number]- Used BUNDLE [id number] 18:05 BUNDLE-ST. TOM CATHETER, JSN, QUAD BUNDLE FR 5 *[id number]- Used BUNDLE [id number] SET, COOL POINT TUBING 18:05 BUNDLE-ST. TOM *[id number]- Used BUNDLE BUNDLE SHEATH, FR8.5 STEERABLE SM 18:05 BUNDLE-ST. TOM 71CM [id number] Used 71CM BUNDLE COVER, TRANSDUCER CABLE 18:05 CONE Farmia [id number] Used ACUNAV 18:05 CORDIS/PACER SHEATH, FR10 CRISTIANA 11CM FR 10 [id number] Used 18:05 CORDIS/PACER SHEATH, FR9 CRISTIANA 11CM FR 9 [id number] Used [id number] 18:05 Wedding Party [employer] PACK, CCL CUSTOM * Used *[id number] 18:05 Wedding Party PACER MORALES, LIMB * 1939 *[id number] Used [id number] 18:05 [employer] MEDICAL SHEATH, FR4.5 PRELUDE 11CM FR 4.5 Used [id number] 18:05 NAMIC TUBING, HIGH PRESSURE 48" 48" Used *[id number] 18:05 NAMIC TUBING, HIGH PRESSURE 48" 48" Used *[id number] 18:05 [place] MEDICAL BLANKET,WARM AIR CCL * Used *[id number] 18:05 [facility] MEDICAL ELECTRODE KIT, EZRA X SURFACE * Used *[id number] 18:05 [facility] MEDICAL SHEATH, EPS, FR6 FAST CATH FR 6 Used *[id number] 18:05 [facility] TOM MEDICAL SHEATH, EPS, FR7 FAST CATH FR 7 [id number] Used [id number] 18:05 [facility] TOM MEDICAL SHEATH, EPS, FR8 FAST CATH FR 8 Used *[id number] CATHETER, ACUNAV FR10 ICE [id number] 19:07 LEIGHA FR 10 Used (LEIGHA) *[id number] [facility] PAD, ELECTROSURGICAL 18:05 * [id number] *[id number] Used SURGICAL GROUNDING (BLUE) History: Allergies Allergy Reaction digoxin TOXIC codeine UPSET STOMACH prednisone Nausea/Vomiting doxycycline UNKNOWN minocycline UNKNOWN pantoprazole tigecycline UNKNOWN amlodipine amiodarone diltiazem History: Risk Factors Hypertension Dyslipidemia Yes Yes Labs Hgb (g/dl) Hct (%) RBC (MIL/MM3) WBC (l/cumm) Platelets (thousands) 11.60-17.00 35.00-51.00 4.00-5.90 4.00-11.00 150.00-450.00 14.0 40 4.4 8.3 295 Glucose (mg/dl) BUN (mg/dl) Creatinine (mg/dl) BUN:Creatinine (1:x) 74.00-106.00 7.00-18.00 0.50-1.30 10.00-20.00 190 19 0.8 23.8 Na (meq/l) K (meq/l) 136.00-145.00 3.50-5.10 137 3.4 INR (PTT:PT) 0.90-1.10 1 Medication Medication Total Dose (Bolus/Oral) Medication Total Dosage/Unit 1% XYLOCAINE 40 mL HEPARIN 8000 units PROTAMINE 40 mg Medications (Bolus/Oral) Medication Time Given Dosage/Unit Administered By Reason 1% XYLOCAINE 02/20/2017 7:02:22 PM 20 mL Leo Pickard 20 mL 1% XYLOCAINE given in lab by Leo Pickard in Left Groin via Subcutaneous. 1% XYLOCAINE 02/20/2017 7:06:27 PM 20 mL Leo Pickard 20 mL 1% XYLOCAINE given in lab by Leo Pickard in Right Groin via Subcutaneous. HEPARIN 02/20/2017 7:18:11 PM 8000 units Anesthesia, SIGN BUILDER As per physicians v erbal order 8000 units HEPARIN given in lab by Anesthesia, SIGN BUILDER via Peripheral IV. Ordered by Leo Pickard. Reas on: As per physicians verbal order. PROTAMINE 02/20/2017 8:16:40 PM 40 mg Anesthesia, SIGN BUILDER As per physicians dylon bal order 40 mg PROTAMINE given in lab by Anesthesia, SIGN BUILDER via Peripheral IV. Ordered by Leo Pickard. Reason: As per physicians verbal order. Medication (Drip) Medication Time Given Dosage/Unit Concentration/Unit Diluent (ml) Solution ISUPREL 02/20/2017 7:57:40 PM 10 mcg/min 1 mg 250 NaCl .9 10 mcg/min ISUPREL given in lab by Anesthesia, SIGN BUILDER via Peripheral IV. Pump/Drip Flow = 150 ml/hr usi ng NaCl .9 with a concentration of 1 mg in 250 ml. Ordered by Leo Pickard. Reason: As per physicians verbal order. ISUPREL 02/20/2017 8:43:43 PM 1 mcg/min 1 mg 250 NaCl .9 1 mcg/min ISUPREL given in lab by Anesthesia, SIGN BUILDER via Peripheral IV. Pump/Drip Flow = 15 ml/hr using NaCl .9 with a concentration of 1 mg in 250 ml. Ordered by Leo Pickard. Reason: As per physicians verbal order. due to patient hr going from 55 to 48 and blood pressure dropping slightly LEVAQUIN 02/20/2017 6:40:16 PM 100 mL/hr 500 100 NaCl .9 100 mL/hr LEVAQUIN given in lab by Anesthesia, SIGN BUILDER via Peripheral IV. Pump/Drip Flow = 0 ml/hr using NaCl .9 with a concentration of 500 in 100 ml. Ordered by Leo Pickard. Reason: As per physicians verbal order. prcie insertion Initial Case Assessment Cardiovascular HR Rhythm NIBP Chest Pain 94 AF 122/64 0 Edema Present Skin color Skin None Normal Warm Dry Circulatory - Right Pulses Dorsalis Pedis 1 Scale (0,1,2,3,4,d) Circulatory - Left Pulses Dorsalis Pedis 1 Scale (0,1,2,3,4,d) Circulatory - Lower Extremities Color Lower Right Color Lower Left Normal Normal Neurological State Oriented to time-place- Alert Moves all extremities person Respiration - General Respiration Rate SpO2 (%) (B/min) 20 99 Final Case Assessment Cardiovascular HR Rhythm NIBP Chest Pain 70 sr 138/63 0 Edema Present Skin color Skin None Normal Warm Dry Circulatory - Right Pulses Dorsalis Pedis 1 Scale (0,1,2,3,4,d) Circulatory - Left Pulses Dorsalis Pedis 1 Scale (0,1,2,3,4,d) Circulatory - Lower Extremities Color Lower Right Color Lower Left Normal Normal Neurological State Lethargic Moves all extremities Respiration - General Respiration Rate SpO2 (%) O2 (lpm) (B/min) 16 99 6 Comment: On Isuprel gtt. Chronological Log Time Study Chronological Log 18:05:[address] Pickard's order. 18:10:21 Patient arrived via Bed. 18:10:21 Patient Name, D.O.B, / Armband Verified By R.N. 18:10:22 Consent signed by the physician and the patient and verified by the Class C Truck Driver staff. 18:10:23 Pre-op and post- op instructions given; patient acknowledges understanding of instructions. 18:10:23 Verbal Stimulation=2 Physical Stimulation=2 Airway=2 Respiration=2 TOTAL=8. (0=absent, 1=li mited, 2=present) 18:10:27 Patient has been NPO for More than 6Hrs. 18:10:27 Skin Breakdown- non per pt 18:10:28 Patient Warmer Placed on the Table. 18:10:29 Disposable Defibrillator Pads Placed On Patient. 18:10:29 Jakc Prominences Protected 18:10:31 A # 20 IV was noted in the Forearm (left). Grade = 0 0.9NS KVO 18:10:32 A # 20 IV was noted in the Forearm (right). Grade = 0 0.9NS KVO 18:10:33 History and physical on the chart or being dictated. 18:12:10 St Tom rep present. 18:15:50 Anesthesia at bedside. Assumes care of patient. Franci Assessment: Initial Case, HR=94 BPM, Rhythm=AF, CGPY=510/64 mmhg, Chest Pain=0, Edema=None, Col or=Normal, Skin = Warm, Dry Right Pulses: Maninder Ped=1 Left Pulses: Maninder Ped=1 18:29:51 Lower Right Extremities: Color=Normal Lower Left Extremities: Color=Normal Neurological: State=Alert, Ox3, [place] Respiration: Resp=20 B/min, SpO2=99 % 18:30:21 ANESTHESIOLOGIST PRESENT FOR INTUBATION. Pt arrived w price draining clear yellow urine. 18:30:26 Table restraints applied according to hospital policy 18:30:33 Bilateral groins prepped with 2% chlorhexidine, and draped after a 3 minute waiting time. 18:36:31 MD paged 100 mL/hr LEVAQUIN given in lab by Anesthesia, SIGN BUILDER via Peripheral IV. Pump/Drip Flow = 0 ml/hr using NaCl .9 with 18:40:16 a concentration of 500 in 100 ml. Ordered by Leo Pickard. Reason: As per physicians verbal or jason. price insertion 18:46:13 Reference ECG taken Time Out. Correct patient, procedure, procedure equipment, site and side verified with physicia n present. Time 18:55:00 concurred by MD, individual staff and SIGN BUILDER. Time Out #2 - Consents verified, patient in correct position, all results are labled and displa yed, safety precautions 18:55:22 taken, antibiotics administered. Time out concurred by MD, individual staff and SIGN BUILDER in procedu re 18:55:30 MD arrived. 18:55:57 Case Start 18:56:00 Kranthi in progress. 19:02:00 Kranthi complete 19:02:22 20 mL 1% XYLOCAINE given in lab by Leo Pickard in Left Groin via Subcutaneous. 19:03:30 Vascular access was obtained in the Fem Vein (left). 19:03:32 Vascular access was obtained in the Fem Vein (left). 19:03:37 Vascular access was obtained in the Fem Vein (left). 19:03:47 Vascular access was obtained in the Fem Art (left). A SHEATH, FR4.5 PRELUDE 11CM FR 4.5 was advanced into the Fem Art (left) using the Modified Lisa rob technique. 19:04:00 0.9ns pressure bag connected. 19:06:09 A SHEATH, EPS, FR6 FAST CATH FR 6 was advanced into the Fem Vein (left) using the Modified Seldinger technique. 19:06:17 A SHEATH, EPS, FR7 FAST CATH FR 7 was advanced into the Fem Vein (left) using the Modified Seldinger technique. 19:06:20 A SHEATH, FR10 CRISTIANA 11CM FR 10 was advanced into the Fem Vein (left) using the Modified S eldinger technique. 19:06:27 20 mL 1% XYLOCAINE given in lab by Leo Pickard in Right Groin via Subcutaneous. 19:06:32 Vascular access was obtained in the Fem Vein (right). 19:06:37 A SHEATH, EPS, FR8 FAST CATH FR 8 was advanced into the Fem Vein (right) using the Modified Seldinger technique. 19:07:07 CATHETER, ACUNAV FR10 ICE ([employer]) FR 10 Was Postioned. A CATHETER, JSN, QUAD BUNDLE FR 5 was advanced vis Fem Vein (left) and placed in the CS. Placem ent was visually 19:07:45 confirmed under fluoroscopy. A CATHETER, JSN, QUAD BUNDLE FR 5 was advanced vis Fem Vein (left) and placed in the HIS. Place ment was 19:07:53 visually confirmed under fluoroscopy. A SHEATH, FR8.5 STEERABLE SM 71CM BUNDLE 71CM was exchanged in the Fem Vein (right). This was n ecessary in 19:09:06 order for catheter support. 19:10:38 EPS in progress. 19:14:47 [place] in 8000 units HEPARIN given in lab by Anesthesia, SIGN BUILDER via Peripheral IV. Ordered by Leo Pickard . Reason: As per 19:18:11 physicians verbal order. 19:18:25 A eps was advanced to the right atrium and passed through the septal wall to the left atriu m. 19:18:37 [place] out A CATHETER, FR7 OPTIMA SPIRAL BUNDLE FR7 was advanced vis Fem Vein (right) and placed in the LA . Placement 19:19:48 was visually confirmed under fluoroscopy. Mapping in progress. 19:24:58 Activated Clotting Time Drawn 19:27:30 Mapping complete. Catheter was removed A CATHETER, TACTICATH ABLAT 65 BUNDLE was advanced vis Fem Vein (right) and placed in the LA. P lacement was 19:27:45 visually confirmed under fluoroscopy. 19:28:00 Tacticath malfunctioned. Replacing tacticath with 2nd catheter. 19:33:21 ACT (Normal Range 90-180) = 383 19:35:[address] 19:38:37 RF Ablation of the LT. ATRIUM with a CATHETER, TACTICATH ABLAT 65 BUNDLE. 19:57:27 Ablation complete. 10 mcg/min ISUPREL given in lab by Anesthesia, SIGN BUILDER via Peripheral IV. Pump/Drip Flow = 150 ml/ hr using NaCl .9 19:57:40 with a concentration of 1 mg in 250 ml. Ordered by Leo Pickard. Reason: As per physicians dylon bal order. 19:58:18 Activated Clotting Time Drawn 20:06:36 ACT (Normal Range 90-180) = 400 20:08:17 Isuprel off 20:11:25 Catheter(s) removed without difficulty A SHEATH, FR9 CRISTIANA 11CM FR 9 was exchanged in the Fem Vein (right). This was necessary in ord er to minimize 20:11:37 site leakage. 40 mg PROTAMINE given in lab by Anesthesia, SIGN BUILDER via Peripheral IV. Ordered by Leo Pickard. R jori: As per 20:16:40 physicians verbal order. 20:20:30 PACU called. Spoke to Koko 20:20:34 Bedside Report will be given. 20:22:41 Activated Clotting Time Drawn 20:25:33 ACT (Normal Range 90-180) = 127 20:28:53 Sheaths removed; pressure applied to access site. Courtney pulled 4fr LFA and Nasreen pulle d RFV 20:43:40 Sheath removed; pressure applied to access site. Courtney pulled remaining LFV sheaths 1 mcg/min ISUPREL given in lab by Anesthesia, SIGN BUILDER via Peripheral IV. Pump/Drip Flow = 15 ml/hr using NaCl .9 with 20:43:43 a concentration of 1 mg in 250 ml. Ordered by Leo Pickard. Reason: As per physicians verb al order. due to patient hr going from 55 to 48 and blood pressure dropping slightly 20:49:51 Sterile dressing applied to site right fem site, site wnl, no hematoma, no oozing. 20:57:19 Sterile dressing applied to Left fem site, no hematoma, no oozing. Site Wnl. Assessment: Final Case, HR=70 BPM, Rhythm=sr, MFJN=624/63 mmhg, Chest Pain=0, Edema=None, Color =Normal, Skin = Warm, Dry Right Pulses: Maninder Ped=1 Left Pulses: Maninder Ped=1 20:58:29 Lower Right Extremities: Color=Normal Lower Left Extremities: Color=Normal Neurological: State=Lethargic, [place] Respiration: Resp=16 B/min, SpO2=99 %, O2=6 lpm, Comment=On Isuprel gtt. 20:59:45 Case End 20:59:53 No case complications noted. 20:59:58 Cine recording checked. 21:00:00 Defibrillator and ground pads removed. Skin intact. 21:05:15 Patient moved to stretcher End Study - Contrast Media Used In Study Contrast Total Opened (mL) Total Used (mL) Total Wasted (mL) Unspecified 0 0 0 End Study - Maximum Contrast Load Max Contrast Load (mL) 355.7 End Study - Radiation Exposure Fluoro Time (minutes) 2.9 End Study - Patient Disposition Complications Transferred To Interventional Outcome No Telemetry Bed successful
[2017-02-20] MEDS ORDERED: DO NOT ADM ANY ANTICOAGULANT DRUGS PRN (21:14)
[2017-02-20] MEDS ORDERED: MORPHINE SULFATE 4 MG/ML INJ IV PUSH PRN (22:00)
[2017-02-20 23:33] VITALS: BP 135/64; PULSE 77; RESP 16; TEMP 97.6; O2SAT 99
[2017-02-20] MEDS ORDERED: D5W IV PRN (23:45)
[2017-02-20] MEDS ORDERED: ISOPROTERENOL IV PRN (23:45)
[2017-02-21] VITALS (24 sets, daily range): BP systolic 116–153; BP diastolic 57–108; PULSE 75–93; RESP 17–31; TEMP 97.5–98.5; O2SAT 77–100
[2017-02-21] MEDS: LEVOTHYROXINE SODIUM 88 MCG TAB PO SCH (05:13)
[2017-02-21 06:53] LABS: APTT (PATIENT) 29.4 SEC (24.3-30.1); PROTHROMBIN TIME - PATIENT 11.6 SEC (9.8-11.6)
--- NOTE | 2017-02-21 08:46 | PD.CARD.PN ---
Subjective Subjective Remarks Feeling better. Heart rate okay. Objective Medications Current Medications Medications (Trade) Dose Ordered Sig/Sammy Route Start Time Stop Time Status Last Admin (NS Flush) 2 ml UNSCH PRN IV FLUSH 02/17/17 21:00 (NS Flush) 2 ml BID IV FLUSH 02/17/17 21:00 02/20/17 23:26 (Tylenol) 650 mg Q6H PRN PO 02/17/17 21:00 02/19/17 22:07 (Milk Of Magnesia Liq) 30 ml Q12H PRN PO 02/17/17 21:00 (Welchol) 625 mg TID PO 02/18/17 09:00 02/20/17 08:40 (Lasix) 40 mg DAILY PO 02/18/17 09:00 02/20/17 08:40 (Synthroid) 88 mcg DAILY@0600 PO 02/18/17 06:00 02/21/17 05:13 (Pepcid) 20 mg DAILY PO 02/17/17 21:00 02/20/17 08:40 (KCl) 20 meq DAILY PO 02/18/17 09:00 02/20/17 08:40 (Vitamin D3) 1,000 units DAILY PO 02/18/17 09:00 02/20/17 08:40 (Prinivil) 5 mg DAILY PO 02/18/17 10:15 02/20/17 08:40 (Percocet 5-325 Mg) 1 tab Q4H PRN PO 02/20/17 20:15 (Percocet 5-325 Mg) 2 tab Q4H PRN PO 02/20/17 20:15 (Ativan Inj) 0.5 mg UNSCH PRN IV PUSH 02/20/17 20:15 02/21/17 20:14 (Atropine Inj) 0.5 mg UNSCH PRN IV PUSH 02/20/17 20:15 Sodium Chloride 250 ml @ 500 mls/hr ONCE PRN IV 02/20/17 20:15 02/21/17 20:14 (Zofran Inj) 4 mg Q4H PRN IV PUSH 02/20/17 20:15 (Xylocaine 1% Inj (50 ml)) 10 ml UNSCH PRN INFIL 02/20/17 20:15 02/21/17 20:14 (Eliquis) 5 mg BID PO 02/21/17 09:00 (Cordarone) 200 mg DAILY PO 02/21/17 09:00 (Morphine Inj) 2 mg Q3H PRN IV PUSH 02/20/17 22:00 Miscellaneous Information ALL NURSING DEPARTME... UNSCH PRN .XX 02/20/17 21:14 02/21/17 21:13 Isoproterenol HCl 2 mg/Dextrose 260 ml @ 7.8 mls/hr TITRATE PRN IV 02/20/17 23:45 Vital Signs / I&O Vital Signs Date Time Temp Pulse Resp B/P (MAP) Pulse Ox O2 Delivery O2 Flow Rate FiO2 02/21/17 06:00 80 20 116/58 (77) 99 02/21/17 06:00 79 02/21/17 04:00 98.0 81 22 131/60 (83) 98 02/21/17 04:00 98.0 81 22 131/60 (83) 98 02/21/17 04:00 81 02/21/17 02:00 97.8 75 27 137/61 (86) 99 02/21/17 02:00 75 02/21/17 00:00 98.0 79 17 119/58 (78) 99 02/21/17 00:00 98.0 79 17 119/58 (78) 99 02/21/17 00:00 79 02/20/17 23:33 97.6 77 16 135/64 (87) 99 02/20/17 23:00 78 22 117/53 (74) 100 Nasal Cannula 3 02/20/17 22:45 77 18 114/52 (72) 95 Nasal Cannula 3 02/20/17 22:30 78 14 109/55 (73) 93 Nasal Cannula 3 02/20/17 22:15 77 16 117/57 (77) 97 Nasal Cannula 3 02/20/17 22:00 79 16 120/52 (74) 95 Nasal Cannula 3 02/20/17 21:45 79 16 102/54 (70) 95 Nasal Cannula 3 02/20/17 21:30 81 16 129/58 (81) 96 Nasal Cannula 3 02/20/17 21:13 94.0 78 20 122/59 (80) 97 Nasal Cannula 3 02/20/17 16:48 127 138/60 02/20/17 16:47 114 138/60 02/20/17 16:00 97.3 83 28 120/58 (78) 97 02/20/17 16:00 83 02/20/17 14:42 114 128/55 02/20/17 12:00 97.2 66 44 134/62 (86) 100 02/20/17 12:00 66 02/20/17 08:48 66 112/56 I/O 02/20/17 02/20/17 02/20/17 02/21/17 02/21/17 02/21/17 07:00 15:00 23:00 07:00 15:00 23:00 Intake Total 252.5 ml 1492.2 ml Output Total 2400 ml 650 ml Balance 252.5 ml -907.8 ml -650 ml Intake Oral 100 ml IV Total 152.5 ml 92.2 ml Other 1400 ml Output Urine Total 1350 ml 650 ml Estimated Blood Loss 50 ml Other 1000 ml # Voids 5 4 # Bowel Movements 0 0 Physical Exam GENERAL: Well-nourished, well-developed patient. SKIN: Warm and dry.Left groin site with sanguinous drainage, no bruising, site soft. Right groin without erythema or drainage. HEAD: Normocephalic. EYES: No scleral icterus. No injection or drainage. NECK: Supple, trachea midline. No JVD or lymphadenopathy. CARDIOVASCULAR: Regular rate and rhythm without murmurs, gallops, or rubs. RESPIRATORY: Breath sounds equal bilaterally. No accessory muscle use. GASTROINTESTINAL: Abdomen soft, non-tender, nondistended. EXTREMITIES: No cyanosis, or edema. NEUROLOGICAL: Awake, alert, and oriented x 3. Non-focal. Laboratory Laboratory Tests Test 02/20/17 11:46 02/21/17 05:55 White Blood Count 11.0 TH/MM3 Red Blood Count 4.59 MIL/MM3 Hemoglobin 14.1 GM/DL Hematocrit 42.4 % Mean Corpuscular Volume 92.4 FL Mean Corpuscular Hemoglobin 30.6 PG Mean Corpuscular Hemoglobin Concent 33.1 % Red Cell Distribution Width 14.1 % Platelet Count 341 TH/MM3 Mean Platelet Volume 8.5 FL Neutrophils (%) (Auto) 69.0 % Lymphocytes (%) (Auto) 21.3 % Monocytes (%) (Auto) 8.0 % Eosinophils (%) (Auto) 0.8 % Basophils (%) (Auto) 0.9 % Neutrophils # (Auto) 7.6 TH/MM3 Lymphocytes # (Auto) 2.3 TH/MM3 Monocytes # (Auto) 0.9 TH/MM3 Eosinophils # (Auto) 0.1 TH/MM3 Basophils # (Auto) 0.1 TH/MM3 CBC Comment DIFF FINAL Differential Comment Prothrombin Time 10.7 SEC 11.6 SEC Prothromb Time International Ratio 1.0 RATIO 1.0 RATIO Blood Urea Nitrogen 15 MG/DL Creatinine 0.86 MG/DL Random Glucose 86 MG/DL Calcium Level 8.2 MG/DL Sodium Level 134 MEQ/L Potassium Level 4.6 MEQ/L Chloride Level 105 MEQ/L Carbon Dioxide Level 23.8 MEQ/L Anion Gap 5 MEQ/L Estimat Glomerular Filtration Rate 63 ML/MIN Activated Partial Thromboplast Time 29.4 SEC Assessment and Plan Problem List: (1) A-fib ICD Codes: I48.91 - Unspecified atrial fibrillation Status: Acute Plan: S/P ablation. Isuprel weaned off. Left groin with minimal sanguinous drainage on dressing. Continue current therapy per my d/w Dr. Pickard. Deysi Dorsey Feb 21, 2017 08:46
[2017-02-21] MEDS: AMIODARONE 200 MG TAB PO SCH (09:00)
[2017-02-21] MEDS: POTASSIUM CHLORIDE 20 MEQ CONTROLLED RELEASE TAB PO SCH (09:02)
[2017-02-21] MEDS: LISINOPRIL 5 MG TAB PO SCH (09:03)
[2017-02-21] MEDS: COLESEVELAM HCL 625 MG TAB PO SCH ×3 (09:03→18:48)
[2017-02-21] MEDS: FAMOTIDINE 20 MG TAB PO SCH (09:03)
[2017-02-21] MEDS: CHOLECALCIFEROL (VIT D3) 1000 UNIT TAB PO SCH (09:03)
[2017-02-21] MEDS: APIXABAN 5 MG TABLET PO SCH ×2 (09:03→20:59)
[2017-02-21] MEDS: SODIUM CHLORIDE 0.9% FLUSH 10 ML FLUSH IV FLUSH SCH ×2 (09:03→21:00)
[2017-02-21] MEDS: FUROSEMIDE 40 MG TAB PO SCH (09:03)
--- NOTE | 2017-02-21 11:21 | HHI.PR ---
Subjective Remarks Follow-up tachyrhythmia 02/19/17-patient seen and examined, reports some fluttering or denies any chest pain. BP low however HR is up 02/20/17-patient seen and examined, currently rate controlled. Occasional heart fluttering but denies any chest pain. Plan for cardiac ablation today 02/21/17- seen and examined, she is status post cardiac ablation 02/20/17. this morning, patient was alert however confused Objective Vitals Vital Signs Date Time Temp Pulse Resp B/P (MAP) Pulse Ox O2 Delivery O2 Flow Rate FiO2 02/21/17 10:00 80 02/21/17 09:31 88 31 135/80 (98) 97 02/21/17 09:00 86 29 126/57 (80) 97 02/21/17 08:30 80 18 129/60 (83) 100 02/21/17 08:00 98.5 80 21 126/58 (80) 100 02/21/17 08:00 80 02/21/17 07:30 80 23 127/59 (81) 100 02/21/17 07:00 81 21 116/57 (76) 100 02/21/17 06:00 80 20 116/58 (77) 99 02/21/17 06:00 79 02/21/17 04:00 98.0 81 22 131/60 (83) 98 02/21/17 04:00 98.0 81 22 131/60 (83) 98 02/21/17 04:00 81 02/21/17 02:00 97.8 75 27 137/61 (86) 99 02/21/17 02:00 75 02/21/17 00:00 98.0 79 17 119/58 (78) 99 02/21/17 00:00 98.0 79 17 119/58 (78) 99 02/21/17 00:00 79 02/20/17 23:33 97.6 77 16 135/64 (87) 99 02/20/17 23:00 78 22 117/53 (74) 100 Nasal Cannula 3 02/20/17 22:45 77 18 114/52 (72) 95 Nasal Cannula 3 02/20/17 22:30 78 14 109/55 (73) 93 Nasal Cannula 3 02/20/17 22:15 77 16 117/57 (77) 97 Nasal Cannula 3 02/20/17 22:00 79 16 120/52 (74) 95 Nasal Cannula 3 02/20/17 21:45 79 16 102/54 (70) 95 Nasal Cannula 3 02/20/17 21:30 81 16 129/58 (81) 96 Nasal Cannula 3 02/20/17 21:13 94.0 78 20 122/59 (80) 97 Nasal Cannula 3 02/20/17 16:48 127 138/60 02/20/17 16:47 114 138/60 02/20/17 16:00 97.3 83 28 120/58 (78) 97 02/20/17 16:00 83 02/20/17 14:42 114 128/55 02/20/17 12:00 97.2 66 44 134/62 (86) 100 02/20/17 12:00 66 I/O 02/20/17 02/20/17 02/20/17 02/21/17 02/21/17 02/21/17 07:00 15:00 23:00 07:00 15:00 23:00 Intake Total 252.5 ml 1492.2 ml Output Total 2400 ml 650 ml Balance 252.5 ml -907.8 ml -650 ml Intake Oral 100 ml IV Total 152.5 ml 92.2 ml Other 1400 ml Output Urine Total 1350 ml 650 ml Estimated Blood Loss 50 ml Other 1000 ml # Voids 5 4 # Bowel Movements 0 0 Result Diagram: 02/20/17 1146 02/20/17 1146 Imaging Last Impressions Chest X-Ray 02/17/17 1840 Signed Impressions: Service Date/Time: Friday, February 17, 2017 18:50 - CONCLUSION: 1. Minimal basilar atelectasis or scarring. Cardiomegaly. No pneumothorax. José Palacio MD Objective Remarks GENERAL: NAD SKIN: Warm and dry. HEAD: Normocephalic. EYES: No scleral icterus. No injection or drainage. NECK: Supple, trachea midline. No JVD or lymphadenopathy. CARDIOVASCULAR: Irregular Regular rate and rhythm without murmurs, gallops, or rubs. RESPIRATORY: Breath sounds equal bilaterally. No accessory muscle use. GASTROINTESTINAL: Abdomen soft, non-tender, nondistended. MUSCULOSKELETAL: No cyanosis, or edema. BACK: Nontender without obvious deformity. No CVA tenderness. A/P Problem List: (1) A-fib ICD Code: I48.91 - Unspecified atrial fibrillation Status: Acute (2) Elevated troponin ICD Code: R74.8 - Abnormal levels of other serum enzymes (3) CHF (congestive heart failure) ICD Code: I50.9 - Heart failure, unspecified (4) TINA (acute kidney injury) ICD Code: N17.9 - Acute kidney failure, unspecified (5) Hyponatremia ICD Code: E87.1 - Hypo-osmolality and hyponatremia Status: Acute Assessment and Plan 86-year-old female with Tachyrhythmia: h/o A-fib/flutter s/p ablation by Dr. Pickard 07/03/16 s/p cardiac ablation 02/20/17 Currently on amiodarone 200 mg daily, Eliquis 5 mg 3 times a day Appreciate input from cardiology PAF with RVR s/p cardiac ablation today 02/20/17 Resume Eliquis and continue amiodarone 200 mg daily Elevated Trop From above Awaiting for cardiac ablation Acute on chronic diastolic CHF Echo 06/19/15 w/ EF 50-55% continue home lisinopril, Prinivil 5 mg daily TINA: resolved Hyponatremia Resolved Hypothyroidism Continue Synthroid Hyperlipidemia On WelChol DVT Prophylaxis: home Eliquis Discharge Planning Likely discharge within next 24 hours Carrington Ojeda MD Feb 21, 2017 11:21
--- NOTE | 2017-02-21 17:22 | EKG ---
Date Performed: 02/20/2017 Time Performed: 21:36:12 PTAGE: 86 years EKG: Sinus rhythm WITH SINUS ARRHYTHMIA WITH FIRST DEGREE AV BLOCK LEFT VENTRICULAR HYPERTROPHY AND ST-T CHANGE. When compared to previous tracing, patient is now in a sinus Rhythm with frequent premature atrial contrac tions. ABNORMAL ECG PREVIOUS TRACING : 02/18/2017 02.08 DOCTOR: Felisha Andersen Interpretating Date/Time 02/21/2017 17:21:30
--- NOTE | 2017-02-21 17:24 | EKG ---
Date Performed: 02/21/2017 Time Performed: 11:16:45 PTAGE: 86 years EKG: Sinus rhythm WITH FIRST DEGREE AV BLOCK POSSIBLE LEFT ATRIAL ENLARGEMENT POSSIBLE RIGHT VENTRICULAR CONDUCTION DE LAY LEFT VENTRICULAR HYPERTROPHY AND ST-T CHANGE. When compared to previous tracing, no significant c hange. ABNORMAL ECG PREVIOUS TRACING : 02/20/2017 21.36 DOCTOR: Felisha Andersen Interpretating Date/Time 02/21/2017 17:22:15
[2017-02-22] VITALS (13 sets, daily range): BP systolic 115–147; BP diastolic 66–73; PULSE 80–96; RESP 18; TEMP 97.2–98.9; O2SAT 93–98
[2017-02-22] MEDS: LEVOTHYROXINE SODIUM 88 MCG TAB PO SCH (05:39)
[2017-02-22] MEDS: CHOLECALCIFEROL (VIT D3) 1000 UNIT TAB PO SCH (08:08)
[2017-02-22] MEDS: COLESEVELAM HCL 625 MG TAB PO SCH ×2 (08:08→12:36)
[2017-02-22] MEDS: POTASSIUM CHLORIDE 20 MEQ CONTROLLED RELEASE TAB PO SCH (08:08)
[2017-02-22] MEDS: LISINOPRIL 5 MG TAB PO SCH (08:08)
[2017-02-22] MEDS: FUROSEMIDE 40 MG TAB PO SCH (08:08)
[2017-02-22] MEDS: APIXABAN 5 MG TABLET PO SCH (08:09)
[2017-02-22] MEDS: AMIODARONE 200 MG TAB PO SCH (08:09)
[2017-02-22] MEDS: SODIUM CHLORIDE 0.9% FLUSH 10 ML FLUSH IV FLUSH SCH (08:09)
[2017-02-22] MEDS: FAMOTIDINE 20 MG TAB PO SCH (08:09)
--- NOTE | 2017-02-22 11:30 | HHI.DS ---
Discharge Summary Admission Date Feb 17, 2017 at 20:41 Discharge Date: Feb 22, 2017 Admitting Diagnosis Afib with RVR/Elevated troponin (1) A-fib ICD Code: I48.91 - Unspecified atrial fibrillation Status: Acute (2) Elevated troponin ICD Code: R74.8 - Abnormal levels of other serum enzymes (3) CHF (congestive heart failure) ICD Code: I50.9 - Heart failure, unspecified (4) TINA (acute kidney injury) ICD Code: N17.9 - Acute kidney failure, unspecified (5) Hyponatremia ICD Code: E87.1 - Hypo-osmolality and hyponatremia Status: Acute Procedures Cardiac ablation 02/20 - Dr. Pickard Brief History - From Admission This is an 86-year-old female with a PMH of HTN, A. fib/A flutter on Eliquis, Depression, Hyperlipidemia and Hypothyroidism who presented to the ER w/ complaints of generalized weakness and mild palpitations. On arrival, found to be in A-fib w/ RVR, HR 130's. Follows w/ Dr. Pickard as outpatient, s/p Ablation 07/03/16. 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 Reports ALLERGY to Diltiazem, Amiodarone and Digoxin, however upon further questioning, pt seems to have adverse reaction rather than allergy, no reports hives/swelling, only notes feeling "out of sorts ". Only on Norvasc at home. S/p Metoprolol 5mg IV in ER in addition to Metoprolol 25mg PO. HR currently 110's. BP 112/62. WBC 11.4. Creatinine 1.31 , producing 1.13 and 06/30/16. Troponin 0.49. BNP 729. UA negative. CXR with minimal basilar atelectasis. Pt without complaints of chest pain or SOB. Reports having follow up appt w/ Dr. Pickard in March. CBC/BMP: 02/20/17 1146 02/20/17 1146 Significant Findings Laboratory Tests Test 02/20/17 11:46 02/21/17 05:55 Calcium Level 8.2 MG/DL (8.5-10.1) Sodium Level 134 MEQ/L (136-145) Estimat Glomerular Filtration Rate 63 ML/MIN (>89) Imaging Last Impressions Chest X-Ray 02/17/17 1840 Signed Impressions: Service Date/Time: Friday, February 17, 2017 18:50 - CONCLUSION: 1. Minimal basilar atelectasis or scarring. Cardiomegaly. No pneumothorax. José Palacio MD PE at Discharge GENERAL: NAD SKIN: Warm and dry. HEAD: Normocephalic. EYES: No scleral icterus. No injection or drainage. NECK: Supple, trachea midline. No JVD or lymphadenopathy. CARDIOVASCULAR: Regular rate and rhythm without murmurs, gallops, or rubs. RESPIRATORY: Breath sounds equal bilaterally. No accessory muscle use. GASTROINTESTINAL: Abdomen soft, non-tender, nondistended. MUSCULOSKELETAL: No cyanosis, or edema. BACK: Nontender without obvious deformity. No CVA tenderness. Pt update on day of discharge Patient states that she was confused yesterday morning after having nightmares that she was restrained. Today she states she feels clear and slept better. She feels the confusion was a result of the medication she received during the ablation. She denies any chest pain palpitations. She has been ambulating about her room. She lives at home with her and would like to go home. NSR on telemetry. Patient states that when she took amiodarone in the past she felt "foggy" as if she had difficulty concentrating and she stopped taking it after several weeks. She states she tends to get side effects from medications. Hospital Course Patient was admitted to the hospital. Patient was thought to have mild troponin elevation from the rapid ventricular rhythm.She underwent ablation on February 20. She is now in normal sinus rhythm. I discussed the patient with Dr. Salinas. He does recommend that she take amiodarone for one month after the procedure. Patient had been refusing it in the hospital as she had had some "mental fogginess" when she took it previously. Patient does agree to try to take it again and will call Dr. Salinas's office if she experiences any side effects. Patient will be discharged home today. She will be continued on Eliquis. Pt Condition on Discharge: Stable Discharge Disposition: Discharge Home Discharge Time: > 30 minutes Discharge Instructions DIET: Follow Instructions for: As Tolerated, No Restrictions Follow up Referrals: Cardiology - 1 Week with Leo Pickard MD New Medications: Amiodarone (Amiodarone) 200 Mg Tab 200 MG PO DAILY for Regulate Heart Beat, #30 TAB Continued Medications: Apixaban (Eliquis) 5 Mg Tab 5 MG PO BID for Blood Clot Prevention, #60 TAB 0 Refills Cholecalciferol (Vitamin D3) 1,000 Unit Tab 1000 UNITS PO DAILY for Nutritional Supplement, #1 BOTTLE 0 Refills Colesevelam (Welchol) 625 Mg Tab 625 MG PO TID for Hyperlipidemia,type 2 diabetes, #180 TAB 0 Refills Denosumab Inj (Prolia Inj) 60 Mg/Ml Inj 60 MG SQ Q180D, #1 VIAL 0 Refills Furosemide (Lasix) 40 Mg Tab 40 MG PO DAILY, #60 TAB 0 Refills Levothyroxine (Levothyroxine) 88 Mcg Tab 88 MCG PO DAILY for Thyroid, #30 TAB 0 Refills Lisinopril (Lisinopril) 5 Mg Tab 5 MG PO DAILY for Blood Pressure Management, #30 TAB 0 Refills Potassium Chloride ER (K-Tab) 20 Meq Tab 20 MEQ PO DAILY for Electrolyte Replacement, #30 TAB 0 Refills Ranitidine (Ranitidine) 150 Mg Tab 150 MG PO BID for Heartburn Management, #60 TAB 0 Refills Ivis Lugo MD Feb 22, 2017 11:30
[2017-02-22] MEDS ORDERED: AMIODARONE 200 MG TAB PO SCH (12:00)
[2017-02-22] MEDS ORDERED: AMIO200T PO (12:07)
== END 2017-02-22 12:59 | disposition home or self-care (01) | DRG 273 ==
LOC: NEPC 17:58 → NEDA 20:41 → NEDH 02-18 00:44 → HIMN 02-18 07:49 → HCIS 02-18 07:56 → HIMN 02-18 08:10 → HCIS 02-21 15:17
PROVIDERS: ADMIT Family Medicine; ATTEND Family Medicine
PROC: 3E0F7GC Introduction of Other Therapeutic Substance into Respiratory Tract, Via Natural or Artificial Opening (ICD-10-PCS; 2017-02-17)
PROC: 02583ZZ Destruction of Conduction Mechanism, Percutaneous Approach (ICD-10-PCS; principal; 2017-02-21)
PROC: 4A023FZ Measurement of Cardiac Rhythm, Percutaneous Approach (ICD-10-PCS; 2017-02-21)
PROC: 4A0234Z Measurement of Cardiac Electrical Activity, Percutaneous Approach (ICD-10-PCS; 2017-02-21)
DX: I48.0 Paroxysmal atrial fibrillation (principal); I50.33 Acute on chronic diastolic (congestive) heart failure; N17.9 Acute kidney failure, unspecified; E87.1 Hypo-osmolality and hyponatremia; I47.1 Supraventricular tachycardia; I11.0 Hypertensive heart disease with heart failure; R74.8 Abnormal levels of other serum enzymes; I48.92 Unspecified atrial flutter; I25.10 Atherosclerotic heart disease of native coronary artery without angina pectoris; M79.7 Fibromyalgia; K21.9 Gastro-esophageal reflux disease without esophagitis; M54.9 Dorsalgia, unspecified; G89.29 Other chronic pain; Z88.1 Allergy status to other antibiotic agents; Z88.8 Allergy status to other drugs, medicaments and biological substances; E86.0 Dehydration; E03.9 Hypothyroidism, unspecified; E78.5 Hyperlipidemia, unspecified; Z79.01 Long term (current) use of anticoagulants
CPT/HCPCS: 71010; 76937; 80048; 80053; 81001; 82550; 82552; 83735; 83880; 84484; 85002; 85025; 85610; 85730; 93005; 93312; 93320; 93325; 93613; 93623; 93656; 93662; 96361; 96374; 96375; C1730; C1731; C1732; C1759; C1766; C2630; J1160; J1644; J1956; J2405; J2720; J7040; J7042

== ENCOUNTER 2017-05-25 14:48 | Observation (INO) | payer MEDICARE, OTHER ==
[2017-05-25] VITALS (7 sets, daily range): BP systolic 110–193; BP diastolic 63–85; PULSE 68–90; RESP 16–18; TEMP 97.7–98.1; O2SAT 91–98
[~2017-05-25] VITALS: Ht 154.9 cm; Wt 60.0 kg
[~2017-05-25 14:48] MED LIST changes: -CEPH-460 PO; +DENO60P SQ; -LEVO112T2 PO; +LEVO88TA2 PO; +LISI-519 PO; +VITA100064 PO
[2017-05-25] MEDS ORDERED: IOHEXOL 350 MG/ML 10 ML VIAL (for RAD DIAG) IVCONTRAST ONE (14:49)
[2017-05-25] MEDS ORDERED: ONDANSETRON HCL 4 MG/2 ML VIAL IVP ONE (16:00)
[2017-05-25] MEDS ORDERED: SODIUM CHLORIDE 0.9% FLUSH 10 ML FLUSH IV FLUSH PRN ×2 (16:00→20:45)
[2017-05-25] MEDS ORDERED: MORPHINE SULFATE 2 MG/ML INJ IV PUSH ONE (16:00)
--- NOTE | 2017-05-25 16:05 | PD ---
HPI Chief Complaint: Back/ Neck Pain or Injury Time Seen by Provider: 15:38 Travel History International Travel<30 days: No Contact w/Intl Traveler<30days: No Traveled to known affect area: No History of Present Illness HPI 86-year-old female presents to the emergency department complaining of severe back pain that radiates to the abdomen and down the hips. Patient states she has a history of chronic back pain, but worsened approximately 2 weeks ago. She states she went to her flanging operator's office and the chair was lower than she thought it was hitting the chair harder than usual. No traumatic injury. She currently rates the pain 10/10 to the thoracic and lumbar spine. Patient states that she has been taking Tylenol without improvement. She took a leftover tramadol last night which did not help her pain. She denies any fevers. No chest pain or shortness of breath. No nausea, vomiting, diarrhea. Patient reports history of compression fractures with kyphoplasty in the past. She denies any urinary symptoms. Patient has a past medical history of HTN, A. fib/A flutter on Eliquis, Depression, Hyperlipidemia and Hypothyroidism. Exacerbating factors are sitting and lying. Standing up will help alleviate the pain. She denies any weakness. Moderate severity. PFSH Past Medical History Hx Anticoagulant Therapy: Yes (ELIQUIS) Arthritis: No Asthma: No Atrial Fibrillation: Yes (flutter RVR) Anxiety: Yes Depression: Yes Heart Rhythm Problems: Yes (AFIB) Cancer: No Cardiovascular Problems: Yes High Cholesterol: Yes Chest Pain: No Congestive Heart Failure: Yes COPD: No Cerebrovascular Accident: No Coronary Artery Disease: Yes Diabetes: No Diminished Hearing: No Fibromyalgia: Yes Gastrointestinal Disorders: Yes (COLITIS, RECTAL MASS) GERD: Yes Glaucoma: No Genitourinary: Yes (retention) Headaches: Yes Hepatitis: No Hiatal Hernia: No Heparin Induced Thrombocytopen: No Hypertension: Yes Immune Disorder: No Implanted Vascular Access Dvce: No Kidney Stones: No Medical other: Yes (FIBROMYALGIA) Musculoskeletal: Yes (chronic back pain) Neurologic: No Psychiatric: No Reproductive: No Respiratory: No Immunizations Current: Yes Migraines: No Myocardial Infarction: No Renal Failure: No Seizures: No Sickle Cell Disease: No Sleep Apnea: No Thyroid Disease: Yes (HYPOTHYROID) Ulcer: No Menopausal: Yes : 2 Para: 2 Past Surgical History Abdominal Surgery: No AICD: No Appendectomy: No Arteriovenous Shunt: No Cholecystectomy: No Ear Surgery: No Endocrine Surgery: No Eye Surgery: Yes (cataracts removed giuseppe) Genitourinary Surgery: No Gynecologic Surgery: No Insulin Pump: No Joint Replacement: No Neurologic Surgery: No Oral Surgery: Yes (gingivitis) Pacemaker: No Thoracic Surgery: No Tonsillectomy: Yes Other Surgery: Yes (LIPOMA LEFT ARM) Social History Alcohol Use: Yes (OCCASIONALLY) Tobacco Use: No Substance Use: No Allergies-Medications (Allergen,Severity, Reaction): Coded Allergies: doxycycline (Unverified Allergy, Intermediate, UNKNOWN, 05/25/17) minocycline (Unverified Allergy, Intermediate, UNKNOWN, 05/25/17) tigecycline (Unverified Allergy, Intermediate, UNKNOWN, 05/25/17) pantoprazole (Unverified Allergy, Unknown, 05/25/17) codeine (Unverified Adverse Reaction, Intermediate, UPSET STOMACH, 05/25/17) prednisone (Unverified Adverse Reaction, Mild, Nausea/Vomiting, 05/25/17) amiodarone (Verified Adverse Reaction, Unknown, 05/25/17) amlodipine (Verified Adverse Reaction, Unknown, 05/25/17) Reported Meds & Prescriptions Reported Meds & Active Scripts Active Reported Lisinopril 10 Mg Tab 10 Mg PO DAILY Prolia Inj (Denosumab) 60 Mg/Ml Inj 60 Mg SQ Q180D Vitamin D3 (Cholecalciferol) 1,000 Unit Tab 1,000 Units PO DAILY Levothyroxine (Levothyroxine Sodium) 88 Mcg Tab 88 Mcg PO DAILY Ranitidine (Ranitidine HCl) 150 Mg Tab 150 Mg PO BID K-Tab (Potassium Chloride) 20 Meq Tab 20 Meq PO DAILY Lasix (Furosemide) 40 Mg Tab 40 Mg PO DAILY Eliquis (Apixaban) 5 Mg Tab 5 Mg PO BID Welchol (Colesevelam HCl) 625 Mg Tab 625 Mg PO TID Review of Systems Except as stated in HPI: all other systems reviewed are Neg Physical Exam Narrative GENERAL: Well-nourished, well-developed elderly female patient, ambulatory. Afebrile. Exam is limited as patient will not sit down for exam. SKIN: Focused skin assessment warm/dry. HEAD: Normocephalic. Atraumatic. EYES: No scleral icterus. No injection or drainage. NECK: Supple, trachea midline. No JVD or lymphadenopathy. CARDIOVASCULAR: Regular rate and rhythm without murmurs, gallops, or rubs. RESPIRATORY: Breath sounds equal bilaterally. No accessory muscle use. Lungs sounds clear to auscultation. GASTROINTESTINAL: Abdomen soft and nondistended. Patient reports mild tenderness over epigastric and suprapubic regions. MUSCULOSKELETAL: No cyanosis, or edema. Bilateral upper lower extremity strength 5/5. All extremities neurovascularly intact. BACK: No obvious deformity. No CVA tenderness. Patient has tenderness to palpation over the midline lower thoracic spine and lumbar spine. Data Data Last Documented VS Vital Signs Date Time Temp Pulse Resp B/P (MAP) Pulse Ox O2 Delivery O2 Flow Rate FiO2 05/25/17 19:59 98 Room Air 05/25/17 19:13 84 18 05/25/17 14:52 97.7 Orders Orders Complete Blood Count With Diff (05/25/17 15:55) Comprehensive Metabolic Panel (05/25/17 15:55) Lipase (05/25/17 15:55) Prothrombin Time / Inr (Pt) (05/25/17 15:55) Act Partial Throm Time (Ptt) (05/25/17 15:55) Urinalysis - C+S If Indicated (05/25/17 15:55) Ct Abd/Pel W Iv Contrast(Rout) (05/25/17 15:55) Iv Access Insert/Monitor (05/25/17 15:55) Ecg Monitoring (05/25/17 15:55) Oximetry (05/25/17 15:55) Ondansetron Inj (Zofran Inj) (05/25/17 16:00) Sodium Chloride 0.9% Flush (Ns Flush) (05/25/17 16:00) Morphine Inj (Morphine Inj) (05/25/17 16:00) Ct Thor Spine W/O Contrast (05/25/17 ) Ct Lumb Spine W/O Contrast (05/25/17 ) Ketorolac Inj (Toradol Inj) (05/25/17 16:15) Orphenadrine Inj (Norflex Inj) (05/25/17 16:15) Sodium Chlorid 0.9% 500 Ml Inj (Ns 500 M (05/25/17 17:30) Ct Thorax/ Chest W Iv Contrast (05/25/17 ) Iohexol 350 Inj (Omnipaque 350 Inj) (05/25/17 14:49) Admit Order (Ed Use Only) (05/25/17 20:05) Labs Laboratory Tests Test 05/25/17 16:18 05/25/17 17:10 White Blood Count 11.3 TH/MM3 Red Blood Count 4.65 MIL/MM3 Hemoglobin 14.3 GM/DL Hematocrit 41.9 % Mean Corpuscular Volume 90.3 FL Mean Corpuscular Hemoglobin 30.9 PG Mean Corpuscular Hemoglobin Concent 34.2 % Red Cell Distribution Width 14.6 % Platelet Count 312 TH/MM3 Mean Platelet Volume 8.7 FL Neutrophils (%) (Auto) 68.7 % Lymphocytes (%) (Auto) 20.3 % Monocytes (%) (Auto) 9.3 % Eosinophils (%) (Auto) 0.8 % Basophils (%) (Auto) 0.9 % Neutrophils # (Auto) 7.7 TH/MM3 Lymphocytes # (Auto) 2.3 TH/MM3 Monocytes # (Auto) 1.0 TH/MM3 Eosinophils # (Auto) 0.1 TH/MM3 Basophils # (Auto) 0.1 TH/MM3 CBC Comment DIFF FINAL Differential Comment Prothrombin Time 10.6 SEC Prothromb Time International Ratio 1.0 RATIO Activated Partial Thromboplast Time 29.2 SEC Blood Urea Nitrogen 18 MG/DL Creatinine 1.20 MG/DL Random Glucose 97 MG/DL Total Protein 8.0 GM/DL Albumin 4.3 GM/DL Calcium Level 9.1 MG/DL Alkaline Phosphatase 74 U/L Aspartate Amino Transf (AST/SGOT) 43 U/L Alanine Aminotransferase (ALT/SGPT) 16 U/L Total Bilirubin 0.5 MG/DL Sodium Level 128 MEQ/L Potassium Level 4.6 MEQ/L Chloride Level 95 MEQ/L Carbon Dioxide Level 25.9 MEQ/L Anion Gap 7 MEQ/L Estimat Glomerular Filtration Rate 43 ML/MIN Lipase 111 U/L Urine Color LIGHT-YELLOW Urine Turbidity CLEAR Urine pH 6.5 Urine Specific [place] 1.004 Urine Protein NEG mg/dL Urine Glucose (UA) NEG mg/dL Urine Ketones NEG mg/dL Urine Occult Blood TRACE Urine Nitrite NEG Urine Bilirubin NEG Urine Urobilinogen LESS THAN 2.0 MG/DL Urine Leukocyte Esterase NEG Urine RBC LESS THAN 1 /hpf Urine WBC LESS THAN 1 /hpf Urine Hyaline Casts 3 /lpf Microscopic Urinalysis Comment CULT NOT INDICATED MDM Medical Decision Making Medical Screen Exam Complete: Yes Emergency Medical Condition: Yes Medical Record Reviewed: Yes Interpretation(s) Last Impressions Abdomen/Pelvis CT 05/25/17 1555 Signed Impressions: Service Date/Time: Thursday, May 25, 2017 18:06 - CONCLUSION: 1. Diffuse atherosclerosis. 2. Focal aneurysmal dilatation of the descending thoracic aorta as above. 3. Renal cysts. 4. There is a mild superior endplate compression fracture status post vertebroplasty at L2, nonacute in appearance. 5. There is a severe wedge compression fracture of T12 with moderate canal stenosis and retropulsion seen. This is nonacute. 6. Bladder diverticulum 7. , Fat- containing inguinal hernias. Sukhi Pfeiffer MD Thoracic Spine CT 05/25/17 0000 Signed Impressions: Service Date/Time: Thursday, May 25, 2017 18:06 - CONCLUSION: Vertebral plana and T12 with patchy sclerosis, retropulsion noted and moderate canal stenosis at this level. L2 mild compression deformities status post vertebroplasty, also nonacute in appearance. There is a history of compression fractures at these levels. No other fractures are seen. 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 Sukhi Pfeiffer MD Lumbar Spine CT 05/25/17 0000 Signed Impressions: Service Date/Time: Thursday, May 25, 2017 18:06 - CONCLUSION: Remote appearing vertebral plana deformity at T12 with retropulsion and canal stenosis. Nonacute L2 compression fracture of mild severity status post vertebroplasty. Sukhi Pfeiffer MD Chest CT 05/25/17 0000 Signed Impressions: Service Date/Time: Thursday, May 25, 2017 18:06 - CONCLUSION: Thoracic aortic aneurysms are noted as above. Atherosclerosis. Nonacute appearing vertebral plana deformity at T12 and L2 compression deformity. Sukhi Pfeiffer MD Differential Diagnosis Compression fracture versus herniated disc versus sciatica versus pancreatitis versus UTI Narrative Course 86-year-old female presents to the emergency department for severe back pain that radiates down to the hips as well as to the abdomen. Patient states pain is worse with lying and sitting. CBC, CMP, lipase, PTT, PT/INR, UA are ordered and pending. CT abdomen/pelvis with IV contrast, CT thoracic spine, CT lumbar spine are ordered and pending. Patient is given morphine 2 mg IV, Zofran 4 mg IV. She is given Toradol 30 mg IV and Norflex 60 mg IM. CBC shows leukocytosis of 11.3, no acute abnormalities. CMP shows hyponatremia 128, creatinine 1.20. Lipase is 111. Coags shows no acute abnormality. UA is negative for acute infection. CT abdomen/pelvis shows diffuse atherosclerosis; Focal aneurysmal dilatation of the descending thoracic aorta as above; Renal cysts; There is a mild superior endplate compression fracture status post vertebroplasty at L2, nonacute in appearance; There is a severe wedge compression fracture of T12 with moderate canal stenosis and retropulsion seen. This is nonacute; Bladder diverticulum; Fat-containing inguinal hernias. CT thoracic spine shows Vertebral plana and T12 with patchy sclerosis, retropulsion noted and moderate canal stenosis at this level. L2 mild compression deformities status post vertebroplasty, also nonacute in appearance. There is a history of compression fractures at these levels. No other fractures are seen. 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 CT lumbar spine shows Remote appearing vertebral plana deformity at T12 with retropulsion and canal stenosis. Nonacute L2 compression fracture of mild severity status post vertebroplasty. Ct chest shows Thoracic aortic aneurysms are noted as above. Atherosclerosis. Nonacute appearing vertebral plana deformity at T12 and L2 compression deformity. Patient is given normal saline 500 mL bolus. No acute findings in spine. I spoke to Dr. Stringer, vascular surgeon, regarding aneurysms. He recommends outpatient follow up unless patient is admitted, then he would like to be consulted on patient. Patient was attempted to walk, but was unable to get out of bed without significant assistance and patient was screaming. She states she does not feel like she can go home due to severe pain. [facility] is paged for admission. Dr. Monzon accepted admission. Diagnosis Primary Impression: Intractable back pain Admitting Information Admitting Physician Requests: Alexia Pennington May 25, 2017 16:05
[2017-05-25] MEDS ORDERED: KETOROLAC TROMETHAMINE 30 MG/ML (IVP) VIAL IV PUSH ONE (16:15)
[2017-05-25] MEDS ORDERED: ORPHENADRINE INJ 60 MG/2 ML AMP IM ONE (16:15)
[2017-05-25 17:02] LABS: AUTOMATED NEUTROPHIL # 7.7 TH/MM3 (1.8-7.7); BASOPHIL # 0.1 TH/MM3 (0-0.2); BASOPHIL % 0.9 % (0.0-2.0); EOSINOPHIL # 0.1 TH/MM3 (0-0.4); EOSINOPHIL % 0.8 % (0.0-4.0); HEMATOCRIT 41.9 % (35.0-46.0); HEMOGLOBIN 14.3 GM/DL (11.6-15.3); LYMPH % 20.3 % (9.0-44.0); LYMPHOCYTE # 2.3 TH/MM3 (1.0-4.8); MEAN CELL VOLUME 90.3 FL (80.0-100.0); MEAN CORPUSCULAR HEMOGLOBIN 30.9 PG (27.0-34.0); MEAN CORPUSCULAR HGB CONC 34.2 % (32.0-36.0); MEAN PLATELET VOLUME 8.7 FL (7.0-11.0); MONO % 9.3 % (0.0-8.0); NEUT % 68.7 % (16.0-70.0); PLATELET COUNT 312 TH/MM3 (150-450); RED BLOOD COUNT 4.65 MIL/MM3 (4.00-5.30); RED CELL DISTRIBUTION WIDTH 14.6 % (11.6-17.2); WHITE BLOOD COUNT 11.3 TH/MM3 (4.0-11.0)
[2017-05-25 17:17] LABS: PROTHROMBIN TIME - PATIENT 10.6 SEC (9.8-11.6)
[2017-05-25 17:20] LABS: ALBUMIN 4.3 GM/DL (3.4-5.0); AST (GOT) 43 U/L (15-37); BICARBONATE 25.9 MEQ/L (21.0-32.0); BLOOD UREA NITROGEN 18 MG/DL (7-18); CALCIUM 9.1 MG/DL (8.5-10.1); CHLORIDE 95 MEQ/L (98-107); GLOMERULAR FILTRATION RATE 43 ML/MIN (>89); GLUCOSE,RANDOM 97 MG/DL (74-106); SODIUM (NA) 128 MEQ/L (136-145)
[2017-05-25 17:22] LABS: ALKALINE PHOSPHATASE 74 U/L (45-117); ALT (GPT) 16 U/L (10-53); TOTAL BILIRUBIN ADULT 0.5 MG/DL (0.2-1.0)
[2017-05-25] MEDS ORDERED: SODIUM CHLORID 0.9% 500 ML INJ 500 ML IV ONE (17:30)
[2017-05-25 17:34] LABS: BILIRUBIN, URINE NEG (NEG); BLOOD, URINE TRACE (NEG); GLUCOSE,URINE NEG (NEG); HYALINE CAST, URINE 3 /lpf (RARE); KETONE, URINE NEG (NEG); NITRITE,URINE NEG (NEG); PH, URINE 6.5 (5.0-8.5); URINE COLOR LIGHT-YELLOW (YELLW/STRAW); URINE LEUKOCYTE ESTERASE NEG (NEG)
--- NOTE | 2017-05-25 18:31 | RADRPT ---
EXAM DATE/TIME: 05/25/2017 18:06 [facility] COMPARISON: CT ABDOMEN & PELVIS W/O CONTRAST, June 15, 2015, 3:55. CT ABDOMEN & PELVIS W CONTRAST, March 01, 2015, 12:50. INDICATIONS : Severe back pain. IV CONTRAST: 91 cc Omnipaque 350 (iohexol) IV ; Cumulative dose for multiple exams. ORAL CONTRAST: No oral contrast ingested. RADIATION DOSE: 13.90 CTDIvol (mGy) ; Combined studies - Thorax/Abdomen/Pelvis MEDICAL HISTORY : Cardiovascular disease. Hypertension. Congestive heart failure.A fib, rectal mass SURGICAL HISTORY : None. ENCOUNTER: Initial ACUITY: 1 day PAIN SCALE: 10/10 LOCATION: back TECHNIQUE: Volumetric scanning of the abdomen and pelvis was performed. Using automated exposure control and ad justment of the mA and/or kV according to patient size, radiation dose was kept as low as reasonably achievable to obtain optimal diagnostic quality images. DICOM format image data is available electro nically for review and comparison. FINDINGS: There is cardiomegaly. Liver, gallbladder, spleen, pancreas, adrenal glands are unremarkable. Bilater al renal cysts are noted, the largest in the midpole of the right kidney laterally measuring 1.5 cm. Diffuse atherosclerotic calcification of the aorta and iliac vessels are noted. There are fat-contain ing bilateral inguinal hernias. There is a large diverticulum off the right lateral aspect of the uri nary bladder posteriorly measuring 3.3 cm. The uterus and adnexa are unremarkable. There are some rafita griselda varices present in the left adnexal region. There are no inflammatory changes seen in the abdome n or pelvis. There is focal aneurysmal dilatation of the aorta at the level of the aortic hiatus apurva uring 4.1 x 3.3 cm. The patient has a severe wedge compression fracture at T12, and previous kyphopla sty has been performed at L2. There is passive atelectasis in the left lower lobe. CONCLUSION: 1. Diffuse atherosclerosis. 2. Focal aneurysmal dilatation of the descending thoracic aorta as above. 3. Renal cysts. 4. There is a mild superior endplate compression fracture status post vertebroplasty at L2, nonacute in appearance. 5. There is a severe wedge compression fracture of T12 with moderate canal stenosis and retropulsion seen. This is nonacute. 6. Bladder diverticulum 7. , Fat-containing inguinal hernias. Sukhi Pfeiffer MD on May 25, 2017 at 18:25 Board Certified Radiologist. This report was verified electronically.
--- NOTE | 2017-05-25 18:38 | RADRPT ---
EXAM DATE/TIME: 05/25/2017 18:06 [facility] COMPARISON: No previous studies available for comparison. INDICATIONS : Severe back pain. IV CONTRAST: cc 91 cc of Omnipaque 350 IV RADIATION DOSE: CTDIvol (mGy) ; Reconstructed from previous dataset, no dose MEDICAL HISTORY : Cardiovascular disease. Congestive heart failure. Hypertension.A fib rectal mass SURGICAL HISTORY : None. ENCOUNTER: Initial ACUITY: 1 day PAIN SCALE: 10/10 LOCATION: back TECHNIQUE: Volumetric scanning of the lumbar spine was performed. Multiplanar reconstructions in the sagittal, coronal and oblique axial planes were performed. Using automated exposure control and adjustment of the mA and/or kV according to patient size, radiation dose was kept as low as reasonably achievable t o obtain optimal diagnostic quality images. DICOM format image data is available electronically for review and comparison. FINDINGS: The there is moderate kyphosis and T12 secondary to a vertebral plana defect with retropulsion. There is previous and vertebroplasty of a mild compression deformity at L2. There is focal dilatation of t he descending thoracic aorta and up to 4.1 cm incompletely evaluated on this study. At the level of t he T12 fracture there is moderate canal stenosis secondary to retropulsion. CONCLUSION: Remote appearing vertebral plana deformity at T12 with retropulsion and canal stenosis. Nonacute L2 c ompression fracture of mild severity status post vertebroplasty. Sukhi Pfeiffer MD on May 25, 2017 at 18:33 Board Certified Radiologist. This report was verified electronically.
--- NOTE | 2017-05-25 18:40 | RADRPT ---
EXAM DATE/TIME: 05/25/2017 18:06 [facility] COMPARISON: ABDOMEN KUB ONLY, August 12, 2015, 17:40. ABDOMEN FLAT & UPRIGHT, July 30, 2015, 3:25. CT ABDOMEN & PEL VIS W/O CONTRAST, June 15, 2015, 3:55. CT THORACIC SPINE W CONTRAST, May 25, 2017, 18:06. CHEST SINGLE AP, February 17, 2017, 18:50. INDICATIONS : Severe back pain. IV CONTRAST: 91 cc Omnipaque 350 (iohexol) IV ; Cumulative dose for multiple exams. RADIATION DOSE: 13.90 CTDIvol (mGy) ; Combined studies - Thorax/Abdomen/Pelvis MEDICAL HISTORY : Cardiovascular disease. Congestive heart failure. Hypertension.A fib, rectal mass SURGICAL HISTORY : None. ENCOUNTER: Initial ACUITY: 1 day PAIN SCALE: 10/10 LOCATION: back TECHNIQUE: Volumetric scanning of the chest was performed. Using automated exposure control and adjustment of t he mA and/or kV according to patient size, radiation dose was kept as low as reasonably achievable to obtain optimal diagnostic quality images. DICOM format image data is available electronically for review and comparison. Follow-up recommendations for detected pulmonary nodules are based at a minimum on nodule size and pa tient risk factors according to Fleischner Society Guidelines. FINDINGS: There is passive atelectasis in the left lower lobe secondary to a tortuous aorta. There is focal ane urysmal dilatation of the descending thoracic aorta up to 4.1 cm on axial 50. There is also aneurysma l dilatation of the ascending aorta measuring 4.2 x 0.3 cm on axial image 30. There is cardiomegaly. Coronary artery calcification is seen in atherosclerotic calcification of the aorta is noted. No pleu ral or pericardial effusions. Osseous structures demonstrate vertebral plana at T12, nonacute in appe arance with moderate canal stenosis and vertebroplasty cement at L2. CONCLUSION: Thoracic aortic aneurysms are noted as above. Atherosclerosis. Nonacute appearing vertebral plana def ormity at T12 and L2 compression deformity. Sukhi Pfeiffer MD on May 25, 2017 at 18:37 Board Certified Radiologist. This report was verified electronically.
--- NOTE | 2017-05-25 18:58 | RADRPT ---
EXAM DATE/TIME: 05/25/2017 18:06 [facility] COMPARISON: CT THORAX W CONTRAST, May 25, 2017, 18:06. CT LUMBAR SPINE W CONTRAST, May 25, 2017, 18:06. INDICATIONS : Severe back pain. IV CONTRAST: None RADIATION DOSE: CTDIvol (mGy) ; Reconstructed from previous dataset, no dose MEDICAL HISTORY : Cardiovascular disease. Congestive heart failure. Hypertension.A fib, rectal mass SURGICAL HISTORY : None. ENCOUNTER: Initial ACUITY: 1 day PAIN SCALE: 10/10 LOCATION: back TECHNIQUE: Volumetric scanning of the thoracic spine was performed. Multiplanar reconstructions in the sagittal , coronal and oblique axial planes were performed. Using automated exposure control and adjustment o f the mA and/or kV according to patient size, radiation dose was kept as low as reasonably achievable to obtain optimal diagnostic quality images. DICOM format image data is available electronically fo r review and comparison. FINDINGS: There is focal kyphosis centered at T12 where vertebral plana is noted, patchy sclerosis and retropul denzel and anteropulsion at this level. The appearance is felt to be nonacute. There is also a nonacute mild superior endplate compression fracture of L2 with vertebroplasty cement in place. CONCLUSION: Vertebral plana and T12 with patchy sclerosis, retropulsion noted and moderate canal stenosis at this level. L2 mild compression deformities status post vertebroplasty, also nonacute in appearance. Ther e is a history of compression fractures at these levels. No other fractures are seen. 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 Sukhi Pfeiffer MD on May 25, 2017 at 18:55 Board Certified Radiologist. This report was verified electronically.
[2017-05-25] MEDS ORDERED: LISI10TA3 PO (19:59)
--- NOTE | 2017-05-25 20:41 | HHI.HP ---
HPI Service [facility]ician Malachi Hua MD Admission Diagnosis intractable back pain Diagnoses: (1) Intractable back pain Diagnosis: Principal (2) AAA (abdominal aortic aneurysm) Diagnosis: Principal (3) A-fib Diagnosis: Principal (4) TINA (acute kidney injury) Diagnosis: Principal Travel History International Travel<30 Days: No Contact w/Intl Traveler <30 Da: No Traveled to Known Affected Are: No History of Present Illness This is an 86-year-old female with a PMH of Anxiety, Depression, Fibromyalgia, A. fib on Eliquis, HTN, Hyperlipidemia, CHF (Echo 06/25/16 w/ EF 30-35%), Chronic Back Pain and h/o Compression Fx who presented to the ER w/ complaints of severe back pain. Symptoms have been getting progressively worse over the last 2wks. States she was at [employer] office 2wks ago and misjudged the height of the chair when she went to sit down and fell a few inches in chair abruptly. Reports back pain at that time, but now pain progressively worse, unable to ambulate or sit/stand for long periods due to pain. Denies fecal/ urinary incontinence, no numbness/weakness. On arrival, BP 193/85, HR 90, O2 sat 97% on RA, Afebrile. WBC 11.3. Creatinine 1.20, previously 0.86 on . UA negative. CT chest thoracic aortic aneurysm. CT Abdomen/Pelvis diffuse atherosclerosis, aneurysmal dilatation of descending thoracic aorta. CT L-spine remote appearing vertebral plan a deformity at T12 with retropulsion and canal stenosis, non-acute L2 compression fracture. CT T-spine T12 patchy sclerosis, retropulsion and moderate canal stenosis, L2 compression deformity nonacute. Dr. Stringer consulted by ER physician in light of aneurysm, no emergent intervention, will eval in consultation. Review of Systems Except as stated in HPI: all other systems reviewed are Neg ROS: 14 point review of systems otherwise negative. Past Family Social History Past Medical History PMH: Anxiety, Depression, Fibromyalgia, A. fib on Eliquis, HTN, Hyperlipidemia , CHF (Echo 06/25/16 w/ EF 30-35%), Chronic Back Pain and h/o Compression Fx Past Surgical History PAST SURGICAL HISTORY: Cataract Surgery, Tonsillectomy, Lipoma Allergies: Coded Allergies: doxycycline (Unverified Allergy, Intermediate, UNKNOWN, 05/25/17) minocycline (Unverified Allergy, Intermediate, UNKNOWN, 05/25/17) tigecycline (Unverified Allergy, Intermediate, UNKNOWN, 05/25/17) pantoprazole (Unverified Allergy, Unknown, 05/25/17) codeine (Unverified Adverse Reaction, Intermediate, UPSET STOMACH, 05/25/17) prednisone (Unverified Adverse Reaction, Mild, Nausea/Vomiting, 05/25/17) amiodarone (Verified Adverse Reaction, Unknown, 05/25/17) amlodipine (Verified Adverse Reaction, Unknown, 05/25/17) Family History PAST FAMILY HISTORY: Reviewed. No h/o DM or CAD Social History PAST SOCIAL HISTORY: Occasional alcohol. Negative for tobacco or drugs. Physical Exam Vital Signs Vital Signs Date Time Temp Pulse Resp B/P (MAP) Pulse Ox O2 Delivery O2 Flow Rate FiO2 05/25/17 19:59 98 Room Air 05/25/17 19:13 84 18 163/70 (101) 98 Room Air 05/25/17 14:52 97.7 90 16 193/85 (121) 97 Physical Exam PE: GENERAL: Pleasant elderly white female in mild distress due to pain, tearful HEENT: PERRLA, EOMI. No scleral icterus or conjunctival pallor. No lid lag or facial droop. CARDIOVASCULAR: Regular rate and rhythm. No obvious murmurs to auscultation. No chest tenderness to palpation. RESPIRATORY: No obvious rhonchi or wheezing. Clear to auscultation. Breath sounds equal bilaterally. GASTROINTESTINAL: Abdomen soft, non-tender, nondistended. BS normal. MUSCULOSKELETAL: Extremities without clubbing, cyanosis, or edema. No obvious deformities. NEUROLOGICAL: Awake, alert and oriented x4. No focal neurologic deficits. Moving both upper and lower extremities spontaneously. Laboratory Laboratory Tests Test 05/25/17 16:18 05/25/17 17:10 White Blood Count 11.3 Red Blood Count 4.65 Hemoglobin 14.3 Hematocrit 41.9 Mean Corpuscular Volume 90.3 Mean Corpuscular Hemoglobin 30.9 Mean Corpuscular Hemoglobin Concent 34.2 Red Cell Distribution Width 14.6 Platelet Count 312 Mean Platelet Volume 8.7 Neutrophils (%) (Auto) 68.7 Lymphocytes (%) (Auto) 20.3 Monocytes (%) (Auto) 9.3 Eosinophils (%) (Auto) 0.8 Basophils (%) (Auto) 0.9 Neutrophils # (Auto) 7.7 Lymphocytes # (Auto) 2.3 Monocytes # (Auto) 1.0 Eosinophils # (Auto) 0.1 Basophils # (Auto) 0.1 CBC Comment DIFF FINAL Differential Comment Prothrombin Time 10.6 Prothromb Time International Ratio 1.0 Activated Partial Thromboplast Time 29.2 Blood Urea Nitrogen 18 Creatinine 1.20 Random Glucose 97 Total Protein 8.0 Albumin 4.3 Calcium Level 9.1 Alkaline Phosphatase 74 Aspartate Amino Transf (AST/SGOT) 43 Alanine Aminotransferase (ALT/SGPT) 16 Total Bilirubin 0.5 Sodium Level 128 Potassium Level 4.6 Chloride Level 95 Carbon Dioxide Level 25.9 Anion Gap 7 Estimat Glomerular Filtration Rate 43 Lipase 111 Urine Color LIGHT-YELLOW Urine Turbidity CLEAR Urine pH 6.5 Urine Specific [place] 1.004 Urine Protein NEG Urine Glucose (UA) NEG Urine Ketones NEG Urine Occult Blood TRACE Urine Nitrite NEG Urine Bilirubin NEG Urine Urobilinogen LESS THAN 2.0 Urine Leukocyte Esterase NEG Urine RBC LESS THAN 1 Urine WBC LESS THAN 1 Urine Hyaline Casts 3 Microscopic Urinalysis Comment CULT NOT INDICATED Result Diagram: 05/25/17 1618 05/25/17 1618 Caprini VTE Risk Assessment Caprini VTE Risk Assessment: Mod/High Risk (score >= 2) Caprini Risk Assessment Model Point Value = 1 Point Value = 2 Point Value = 3 Point Value = 5 Age 41-60 Minor surgery BMI > 25 kg/m2 Swollen legs Varicose veins or History of unexplained or recurrent spontaneous Oral contraceptives or hormone replacement Sepsis (< 1 month) Serious lung disease, including pneumonia (< 1 month) Abnormal pulmonary function Acute myocardial infarction Congestive heart failure (< 1 month) History of inflammatory bowel disease Medical patient at bed rest Age 61-74 Arthroscopic surgery Major open surgery (> 45 min) Laparoscopic surgery (> 45 min) Malignancy Confined to bed (> 72 hours) Immobilizing plaster cast Central venous access Age >= 75 History of VTE Family history of VTE Factor V Leiden Prothrombin [id number] Lupus anticoagulant Anticardiolipin antibodies Elevated serum homocysteine Heparin-induced thrombocytopenia Other congenital or acquired thrombophilia Stroke (< 1 month) Elective arthroplasty Hip, pelvis, or leg fracture Acute spinal cord injury (< 1 month) Prophylaxis Regimen Total Risk Factor Score Risk Level Prophylaxis Regimen 0-1 Low Early ambulation 2 Moderate Order ONE of the following: *Sequential Compression Device (SCD) *Heparin 5000 units SQ BID 3-4 Higher Order ONE of the following medications: *Heparin 5000 units SQ TID *Enoxaparin/Lovenox 40 mg SQ daily (WT < 150 kg, CrCl > 30 mL/min) *Enoxaparin/Lovenox 30 mg SQ daily (WT < 150 kg, CrCl > 10-29 mL/min) *Enoxaparin/Lovenox 30 mg SQ BID (WT < 150 kg, CrCl > 30 mL/min) AND/OR *Sequential Compression Device (SCD) 5 or more Highest Order ONE of the following medications: *Heparin 5000 units SQ TID (Preferred with Epidurals) *Enoxaparin/Lovenox 40 mg SQ daily (WT < 150 kg, CrCl > 30 mL/min) *Enoxaparin/Lovenox 30 mg SQ daily (WT < 150 kg, CrCl > 10-29 mL/min) *Enoxaparin/Lovenox 30 mg SQ BID (WT < 150 kg, CrCl > 30 mL/min) AND *Sequential Compression Device (SCD) Assessment and Plan Problem List: (1) Intractable back pain ICD Code: M54.9 - Dorsalgia, unspecified Status: Acute (2) TINA (acute kidney injury) ICD Code: N17.9 - Acute kidney failure, unspecified Status: Acute (3) AAA (abdominal aortic aneurysm) ICD Code: I71.4 - Abdominal aortic aneurysm, without rupture (4) A-fib ICD Code: I48.91 - Unspecified atrial fibrillation Status: Acute Assessment and Plan A/P: 1. Intractable Back Pain: h/o Chronic Back Pain w/ Acute Exacerbation. Severe. Compounded by recent mild injury. CT T/L-Spine w/ remote vertebral deformity T12 and nonacute L2 compression fracture, images reviewed by me. Unable to ambulate at this time due to severe pain. Start Valium prn, Analgesics/antiemetics, Neurontin. PT for eval/tx. 2. TINA: Creatinine 1.20, previously 0.86 on 02/20/17. UA negative for UTI. IVF for hydration, caution with history of CHF. 3. AAA: CT Abdomen/Pelvis w/ focal aneurysmal dilatation of descending thoracic aorta 4.1cm and ascending aorta 4.2cm, images reviewed by me. Dr. Stringer consulted by ER physician, no emergent intervention needed, will see in consultation. Monitor BP. 4. A-fib: Chronic. Resume home Eliquis. 5. DVT Prophylaxis: On Eliquis as above. 6. Social work for DC planning as needed. 7. Case discussed at length with ER physician, lab/records/imaging reviewed by me. Rosa M Monzon MD May 25, 2017 20:41
[2017-05-25] MEDS ORDERED: HYDROmorphone HCL PF 2 MG/ML VIAL IV PUSH PRN (20:45)
[2017-05-25] MEDS ORDERED: DIAZEPAM 10 MG TAB PO PRN (20:45)
[2017-05-25] MEDS ORDERED: ONDANSETRON HCL 4 MG/2 ML VIAL IVP PRN (20:45)
[2017-05-25] MEDS ORDERED: GABAPENTIN 300 MG CAP PO ONE (20:45)
[2017-05-25] MEDS ORDERED: MAGNESIUM HYDROXIDE SUSP 30 ML CUP PO PRN (20:45)
[2017-05-25] MEDS ORDERED: ACETAMINOPHEN 325 MG TAB PO PRN (20:45)
[2017-05-25] MEDS ORDERED: HYDROmorphone HCL PF 2 MG/ML VIAL IV PUSH ONE (20:45)
[2017-05-25] MEDS ORDERED: LACTULOSE SYRUP 20 GM/30 ML CUP PO PRN (20:45)
[2017-05-25] MEDS ORDERED: SENNOSIDES 8.6 MG TAB PO PRN (20:45)
[2017-05-25] MEDS ORDERED: DIAZEPAM 10 MG TAB PO ONE (20:45)
[2017-05-25] MEDS ORDERED: ACETAMINOPHEN/HYDROcodone 325 MG/5 MG TAB PO PRN (20:45)
[2017-05-25] MEDS ORDERED: BISACODYL 10 MG SUPP RECTAL PRN (20:45)
[2017-05-25] MEDS ORDERED: methylPREDNISolone SOD SUCC 125 MG/2 ML VIAL IV PUSH ONE (21:00)
[2017-05-25] MEDS: DOCUSATE SODIUM 50 MG/SENNA 8.6 MG TAB PO SCH (21:25)
[2017-05-25] MEDS: FAMOTIDINE 20 MG TAB PO SCH (21:26)
[2017-05-25] MEDS: APIXABAN 5 MG TABLET PO SCH (21:26)
[2017-05-25] MEDS: SODIUM CHLORIDE 0.9% FLUSH 10 ML FLUSH IV FLUSH SCH (22:02)
[2017-05-26 05:24] VITALS: BP 121/87; PULSE 84; RESP 18; TEMP 98.2; O2SAT 94
[2017-05-26] MEDS: LEVOTHYROXINE SODIUM 88 MCG TAB PO SCH (06:00)
[2017-05-26 07:39] LABS: AUTOMATED NEUTROPHIL # 6.1 TH/MM3 (1.8-7.7); BASOPHIL % 0.1 % (0.0-2.0); HEMATOCRIT 39.6 % (35.0-46.0); HEMOGLOBIN 13.7 GM/DL (11.6-15.3); LYMPH % 10.5 % (9.0-44.0); LYMPHOCYTE # 0.7 TH/MM3 (1.0-4.8); MEAN CELL VOLUME 89.5 FL (80.0-100.0); MEAN CORPUSCULAR HGB CONC 34.6 % (32.0-36.0); MEAN PLATELET VOLUME 8.3 FL (7.0-11.0); MONO % 1.1 % (0.0-8.0); MONOCYTE # 0.1 TH/MM3 (0-0.9); NEUT % 88.3 % (16.0-70.0); PLATELET COUNT 299 TH/MM3 (150-450); RED BLOOD COUNT 4.42 MIL/MM3 (4.00-5.30); RED CELL DISTRIBUTION WIDTH 14.8 % (11.6-17.2); WHITE BLOOD COUNT 6.9 TH/MM3 (4.0-11.0)
[2017-05-26 08:03] LABS: ALBUMIN 3.7 GM/DL (3.4-5.0); AST (GOT) 21 U/L (15-37); BICARBONATE 26.3 MEQ/L (21.0-32.0); BLOOD UREA NITROGEN 20 MG/DL (7-18); CALCIUM 8.6 MG/DL (8.5-10.1); CHLORIDE 100 MEQ/L (98-107); CREATININE 1.12 MG/DL (0.50-1.00); GLOMERULAR FILTRATION RATE 46 ML/MIN (>89); GLUCOSE,RANDOM 136 MG/DL (74-106); SODIUM (NA) 134 MEQ/L (136-145)
[2017-05-26 08:07] LABS: ALKALINE PHOSPHATASE 69 U/L (45-117); ALT (GPT) 15 U/L (10-53); TOTAL BILIRUBIN ADULT 0.4 MG/DL (0.2-1.0); TOTAL PROTEIN 7.2 GM/DL (6.4-8.2)
[2017-05-26 08:37] VITALS: BP 110/52; PULSE 68; RESP 20; TEMP 98.2; O2SAT 96
[2017-05-26] MEDS: FUROSEMIDE 40 MG TAB PO SCH (08:47)
[2017-05-26] MEDS: APIXABAN 5 MG TABLET PO SCH ×2 (08:47→21:14)
[2017-05-26] MEDS: FAMOTIDINE 20 MG TAB PO SCH ×2 (08:47→21:14)
[2017-05-26] MEDS: DOCUSATE SODIUM 50 MG/SENNA 8.6 MG TAB PO SCH ×2 (08:47→21:14)
[2017-05-26] MEDS: COLESEVELAM HCL 625 MG TAB PO SCH ×3 (08:47→18:23)
[2017-05-26] MEDS: SODIUM CHLORIDE 0.9% FLUSH 10 ML FLUSH IV FLUSH SCH ×2 (08:48→21:00)
[2017-05-26 11:52] VITALS: BP 112/60; PULSE 60; RESP 20; TEMP 98; O2SAT 96
--- NOTE | 2017-05-26 12:27 | HHI.PR ---
Subjective Remarks Follow-up visit intractable back pain, chronic back pain with exacerbation. Patient stated exhibited daily at bed. Patient is very lethargic. Patient states that "I do not know if they give me but really tired and sleepy." Patient states that she walked with physical therapy but she states she is sway side-side feeling drunk. Otherwise reports pain has improved. Denies pain and discomfort. Denies SOB/ dyspnea. Denies chest pain, palpitations, headaches, dizziness. Denies fevers, chills, n/v/d. Denies dysuria. C/o dry lips. Objective Vitals Vital Signs Date Time Temp Pulse Resp B/P (MAP) Pulse Ox O2 Delivery O2 Flow Rate FiO2 05/26/17 11:52 98.0 60 20 112/60 (77) 96 05/26/17 08:37 98.2 68 20 110/52 (71) 96 05/26/17 05:24 98.2 84 18 121/87 (98) 94 05/26/17 01:08 18 05/25/17 23:56 98.1 68 18 110/64 (79) 95 05/25/17 23:01 05/25/17 22:55 76 18 115/63 (80) 98 Nasal Cannula 2.00 05/25/17 21:31 18 98 Nasal Cannula 2.00 05/25/17 21:30 18 91 Room Air 05/25/17 19:59 98 Room Air 05/25/17 19:13 84 18 163/70 (101) 98 Room Air 05/25/17 14:52 97.7 90 16 193/85 (121) 97 I/O 05/25/17 05/25/17 05/25/17 05/26/17 05/26/17 05/26/17 06:59 14:59 22:59 06:59 14:59 22:59 Intake Total 250 ml 300 ml Balance 250 ml 300 ml Intake Oral 250 ml 300 ml Result Diagram: 05/26/1761605/26/17616 Imaging Last Impressions Abdomen/Pelvis CT 05/25/17 1551 Signed Impressions: Service Date/Time: Thursday, May 25, 2017 18:06 - CONCLUSION: 1. Diffuse atherosclerosis. 2. Focal aneurysmal dilatation of the descending thoracic aorta as above. 3. Renal cysts. 4. There is a mild superior endplate compression fracture status post vertebroplasty at L2, nonacute in appearance. 5. There is a severe wedge compression fracture of T12 with moderate canal stenosis and retropulsion seen. This is nonacute. 6. Bladder diverticulum 7. , Fat- containing inguinal hernias. Sukhi Pfeiffer MD Thoracic Spine CT 05/25/17 0000 Signed Impressions: Service Date/Time: Thursday, May 25, 2017 18:06 - CONCLUSION: Vertebral plana and T12 with patchy sclerosis, retropulsion noted and moderate canal stenosis at this level. L2 mild compression deformities status post vertebroplasty, also nonacute in appearance. There is a history of compression fractures at these levels. No other fractures are seen. 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 Sukhi Pfeiffer MD Lumbar Spine CT 05/25/17 0000 Signed Impressions: Service Date/Time: Thursday, May 25, 2017 18:06 - CONCLUSION: Remote appearing vertebral plana deformity at T12 with retropulsion and canal stenosis. Nonacute L2 compression fracture of mild severity status post vertebroplasty. Sukhi Pfeiffer MD Chest CT 05/25/17 0000 Signed Impressions: Service Date/Time: Thursday, May 25, 2017 18:06 - CONCLUSION: Thoracic aortic aneurysms are noted as above. Atherosclerosis. Nonacute appearing vertebral plana deformity at T12 and L2 compression deformity. Sukhi Pfeiffer MD Objective Remarks GENERAL: This is a well-nourished, well-developed patient, in no apparent distress. SKIN: Warm and dry. HEENT: Normocephalic. Pupils equal round and reactive. Nose without bleeding. Airway patent. NECK: Trachea midline. No JVD. Supple. CARDIOVASCULAR: Regular rate and rhythm with 4/6 murmurs, gallops, or rubs. RESPIRATORY: Clear to auscultation. Breath sounds equal bilaterally. No wheezes , rales, or rhonchi. GASTROINTESTINAL: Abdomen soft, non-tender, nondistended. Bowel Sounds hypoactive. MUSCULOSKELETAL: Extremities without clubbing, cyanosis, or edema. NEUROLOGICAL: Awake and alert. Oriented to place, person. No focal neuro deficit. Moves all extremities. Normal speech. A/P Problem List: (1) Intractable back pain ICD Code: M54.9 - Dorsalgia, unspecified Status: Acute (2) TINA (acute kidney injury) ICD Code: N17.9 - Acute kidney failure, unspecified Status: Acute (3) AAA (abdominal aortic aneurysm) ICD Code: I71.4 - Abdominal aortic aneurysm, without rupture (4) A-fib ICD Code: I48.91 - Unspecified atrial fibrillation Status: Acute Assessment and Plan 86-year-old female with a PMH of Anxiety, Depression, Fibromyalgia, A. fib on Eliquis, HTN, Hyperlipidemia, CHF (Echo 06/25/16 w/ EF 30-35%), Chronic Back Pain and h/o Compression Fx who presented to the ER w/ complaints of severe back pain. Intractable Back Pain: h/o Chronic Back Pain w/ Acute Exacerbation. Severe. - Compounded by recent mild injury. - CT T/L-Spine w/ remote vertebral deformity T12 and nonacute L2 compression fracture, images reviewed. - Patient was given Valium, Noroflex, Dialudid IV, Neurontin - Pain significantly improved but lethargic/ drowsy. Will DC Valium prn for now. Start [place] 5 and 7. 5mg, Dilaudid only for breakthrough pain. Start baclofen 3 times daily - Continue physical therapy TINA: Creatinine 1.20, previously 0.86 on 02/20/17. - UA negative for UTI. - IVF for hydration, caution with history of CHF. 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 - Dr. Stringer consulted by ER physician, no emergent intervention needed. - Monitor A-fib: Chronic. Resume home Eliquis. DVT Prophylaxis: On Eliquis as above. Discharge Planning Plan to DC home with [employer] if improved condition. Daniel Wilson May 26, 2017 12:27
[2017-05-26] MEDS ORDERED: ACETAMINOPHEN/HYDROcodone 325 MG/7.5 MG TAB PO PRN (12:30)
[2017-05-26] MEDS ORDERED: ACETAMINOPHEN/HYDROcodone 325 MG/5 MG TAB PO PRN (12:30)
[2017-05-26] MEDS ORDERED: LACTULOSE SYRUP 20 GM/30 ML CUP PO ONE (12:45)
[2017-05-26] MEDS ORDERED: BISACODYL 10 MG SUPP RECTAL ONE (12:45)
[2017-05-26] MEDS ORDERED: PILL SPLITTER OTHER PRN (13:45)
[2017-05-26] MEDS: BACLOFEN 10 MG TAB PO SCH ×2 (14:13→21:14)
[2017-05-26 16:12] VITALS: BP 163/90; PULSE 60; RESP 20; TEMP 97.9; O2SAT 20
--- NOTE | 2017-05-26 19:27 | PD.CAR.PN ---
CVT Progress Note Subjective/Hospital Course: Patient seen and examined studies evaluated Patient with back pain in low thoracic and lumbar area. On workup noted to have thoracic and abdominal aortic aneurysms These are not leaking, are asymptomatic and only follow-up as necessary Full consult dictated Thanks J Objective: Vital Signs Date Time Temp Pulse Resp B/P (MAP) Pulse Ox O2 Delivery O2 Flow Rate FiO2 05/26/17 16:12 97.9 60 20 163/90 (114) 20 05/26/17 11:52 98.0 60 20 112/60 (77) 96 05/26/17 08:37 98.2 68 20 110/52 (71) 96 05/26/17 05:24 98.2 84 18 121/87 (98) 94 05/26/17 01:08 18 05/25/17 23:56 98.1 68 18 110/64 (79) 95 05/25/17 23:01 05/25/17 22:55 76 18 115/63 (80) 98 Nasal Cannula 2.00 05/25/17 21:31 18 98 Nasal Cannula 2.00 05/25/17 21:30 18 91 Room Air 05/25/17 19:59 98 Room Air Result Diagram: 05/26/17 0617 05/26/17 0617 Jason Stringer MD May 26, 2017 19:27
[2017-05-26 20:50] VITALS: BP 154/74; PULSE 74; RESP 18; TEMP 98; O2SAT 97
[2017-05-26 23:52] VITALS: BP 147/84; PULSE 74; RESP 18; TEMP 98; O2SAT 97
[2017-05-27 03:24] VITALS: BP 148/69; PULSE 53; RESP 18; TEMP 98; O2SAT 96
[2017-05-27] MEDS: LEVOTHYROXINE SODIUM 88 MCG TAB PO SCH (05:04)
[2017-05-27] MEDS: BACLOFEN 10 MG TAB PO SCH ×2 (05:06→13:52)
[2017-05-27 08:00] VITALS: BP 134/60; PULSE 59; RESP 18; TEMP 96.3; O2SAT 96
[2017-05-27] MEDS: COLESEVELAM HCL 625 MG TAB PO SCH ×2 (10:19→13:52)
[2017-05-27] MEDS: FAMOTIDINE 20 MG TAB PO SCH (10:19)
[2017-05-27] MEDS: DOCUSATE SODIUM 50 MG/SENNA 8.6 MG TAB PO SCH (10:19)
[2017-05-27] MEDS: FUROSEMIDE 40 MG TAB PO SCH (10:19)
[2017-05-27] MEDS: APIXABAN 5 MG TABLET PO SCH (10:19)
[2017-05-27] MEDS: SODIUM CHLORIDE 0.9% FLUSH 10 ML FLUSH IV FLUSH SCH (10:20)
--- NOTE | 2017-05-27 11:17 | HHI.DCPOC ---
Discharge Care Plan Diagnosis: (1) TINA (acute kidney injury) (2) A-fib (3) AAA (abdominal aortic aneurysm) (4) Intractable back pain Your Health Problems Are: Difficulty with ADL Inflammation Chronic Pain Goals to Promote Your Health * To prevent worsening of your condition and complications * To maintain your health at the optimal level Directions to Meet Your Goals Take your medications as prescribed Follow your dietary instruction Follow activity as directed Keep your appointments as scheduled Take your immunizations and boosters as scheduled If your symptoms worsen call your PCP, if no PCP go to Urgent Care Center or Emergency Room Smoking is Dangerous to Your Health. Avoid second hand smoke Call the 24-hour hour crisis hotline for domestic abuse at Daniel Wilson May 27, 2017 11:17
[2017-05-27] MEDS ORDERED: BACL10TA PO (11:20)
[2017-05-27 12:00] VITALS: BP 118/56; PULSE 60; RESP 18; TEMP 96.5; O2SAT 100
--- NOTE | 2017-05-27 12:42 | HHI.PR ---
Subjective Remarks Follow-up back pain and encephalopathy. Patient is feeling much better improved back pain. She is awake and oriented 3 she has not taken additional doses of Valium and narcotics. Discussed with nursing Objective Vitals Vital Signs Date Time Temp Pulse Resp B/P (MAP) Pulse Ox O2 Delivery O2 Flow Rate FiO2 05/27/17 12:00 96.5 60 18 118/56 (76) 100 05/27/17 08:00 96.3 59 18 134/60 (84) 96 05/27/17 03:24 98.0 53 18 148/69 (95) 96 05/26/17 23:52 98.0 74 18 147/84 (105) 97 05/26/17 20:50 98.0 74 18 154/74 (100) 97 05/26/17 16:12 97.9 60 20 163/90 (114) 20 I/O 05/26/17 05/26/17 05/26/17 05/27/17 05/27/17 05/27/17 07:00 15:00 23:00 07:00 15:00 23:00 Intake Total 250 ml 300 ml 450 ml Balance 250 ml 300 ml 450 ml Intake Oral 250 ml 300 ml 450 ml Result Diagram: 05/26/17 0617 05/26/17 0617 Imaging Last Impressions Abdomen/Pelvis CT 05/25/17 1555 Signed Impressions: Service Date/Time: Thursday, May 25, 2017 18:06 - CONCLUSION: 1. Diffuse atherosclerosis. 2. Focal aneurysmal dilatation of the descending thoracic aorta as above. 3. Renal cysts. 4. There is a mild superior endplate compression fracture status post vertebroplasty at L2, nonacute in appearance. 5. There is a severe wedge compression fracture of T12 with moderate canal stenosis and retropulsion seen. This is nonacute. 6. Bladder diverticulum 7. , Fat- containing inguinal hernias. Sukhi Pfeiffer MD Thoracic Spine CT 05/25/17 0000 Signed Impressions: Service Date/Time: Thursday, May 25, 2017 18:06 - CONCLUSION: Vertebral plana and T12 with patchy sclerosis, retropulsion noted and moderate canal stenosis at this level. L2 mild compression deformities status post vertebroplasty, also nonacute in appearance. There is a history of compression fractures at these levels. No other fractures are seen. 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 Sukhi Pfeiffer MD Lumbar Spine CT 05/25/17 0000 Signed Impressions: Service Date/Time: Thursday, May 25, 2017 18:06 - CONCLUSION: Remote appearing vertebral plana deformity at T12 with retropulsion and canal stenosis. Nonacute L2 compression fracture of mild severity status post vertebroplasty. Sukhi Pfeiffer MD Chest CT 05/25/17 0000 Signed Impressions: Service Date/Time: Thursday, May 25, 2017 18:06 - CONCLUSION: Thoracic aortic aneurysms are noted as above. Atherosclerosis. Nonacute appearing vertebral plana deformity at T12 and L2 compression deformity. Sukhi Pfeiffer MD Objective Remarks GENERAL: This is a well-nourished, well-developed patient, in no apparent distress. SKIN: Warm and dry. CARDIOVASCULAR: Regular rate and rhythm with 4/6 murmurs, gallops, or rubs. RESPIRATORY: Clear to auscultation. Breath sounds equal bilaterally. No wheezes , rales, or rhonchi. GASTROINTESTINAL: Abdomen soft, non-tender, nondistended. Bowel Sounds hypoactive. MUSCULOSKELETAL: Extremities without clubbing, cyanosis, or edema. NEUROLOGICAL: Awake and alert. Oriented to place, person. No focal neuro deficit. Moves all extremities. Normal speech. Procedures none A/P Problem List: (1) Intractable back pain ICD Code: M54.9 - Dorsalgia, unspecified Status: Acute (2) TINA (acute kidney injury) ICD Code: N17.9 - Acute kidney failure, unspecified Status: Acute (3) AAA (abdominal aortic aneurysm) ICD Code: I71.4 - Abdominal aortic aneurysm, without rupture (4) A-fib ICD Code: I48.91 - Unspecified atrial fibrillation Status: Acute Assessment and Plan 86-year-old female with a PMH of Anxiety, Depression, Fibromyalgia, A. fib on Eliquis, HTN, Hyperlipidemia, CHF (Echo 06/25/16 w/ EF 30-35%), Chronic Back Pain and h/o Compression Fx who presented to the ER w/ complaints of severe back pain. Intractable Back Pain: h/o Chronic Back Pain w/ Acute Exacerbation. Compounded by recent mild injury. CT T/L-Spine w/ remote vertebral deformity T12 and nonacute L2 compression fracture, images reviewed. Improved continue baclofen Toxic encephalopathy status post volume and narcotics. Resolved TINA: Improving with gentle IV hydration. AAA: CT Abdomen/Pelvis w/ focal aneurysmal dilatation of descending thoracic aorta 4.1cm and ascending aorta 4.2cm, images reviewed by me. Dr. Stringer consulted by ER physician, no emergent intervention needed. A-fib: Chronic. Resume home Eliquis. DVT Prophylaxis: On Eliquis as above. Discharge Planning Discharge patient to home Condition on discharge: Improved Regular Diet as tolerated Ad Senia activity Rx written: Flexeril Follow-up with primary care physician and cardiology Malachi Dodd MD May 27, 2017 12:42
== END 2017-05-27 17:06 | disposition home or self-care (01) ==
LOC: NEPE 14:48 → NEDA 20:07 → NEPHCDU 23:06
PROVIDERS: ADMIT Internal Medicine; ATTEND Internal Medicine
DX: M54.9 Dorsalgia, unspecified (principal); G89.29 Other chronic pain; N17.9 Acute kidney failure, unspecified; I48.2 Chronic atrial fibrillation; I71.4 Abdominal aortic aneurysm, without rupture; I71.2 Thoracic aortic aneurysm, without rupture; G92 Toxic encephalopathy; T42.8X5A Adverse effect of antiparkinsonism drugs and other central muscle-tone depressants, initial encounter; M48.56XA Collapsed vertebra, not elsewhere classified, lumbar region, initial encounter for fracture; M48.061 Spinal stenosis, lumbar region without neurogenic claudication; M48.04 Spinal stenosis, thoracic region; M79.7 Fibromyalgia; I25.10 Atherosclerotic heart disease of native coronary artery without angina pectoris; I11.0 Hypertensive heart disease with heart failure; I50.9 Heart failure, unspecified; E87.1 Hypo-osmolality and hyponatremia; E78.5 Hyperlipidemia, unspecified; K21.9 Gastro-esophageal reflux disease without esophagitis; D72.829 Elevated white blood cell count, unspecified; E03.9 Hypothyroidism, unspecified; K40.90 Unilateral inguinal hernia, without obstruction or gangrene, not specified as recurrent; N28.1 Cyst of kidney, acquired; N32.3 Diverticulum of bladder
CPT/HCPCS: 71260; 72128; 72131; 74177; 80053; 81001; 83690; 85025; 85610; 85730; 96361; 96374; 96375; 96376; 97162; 97164; 99285; G0378; G8987; G8988; G8989; J1170; J1885; J2270; J2360; J2405; J2930; J7040; Q9967

== ENCOUNTER 2017-06-12 19:16 | Emergency (ER) | payer MEDICARE, OTHER ==
[~2017-06-12 19:16] MED LIST changes: -AMIO200T PO; +BACL10TA PO; -LISI-519 PO; +LISI10TA3 PO
[2017-06-12 19:36] VITALS: BP 152/72; PULSE 94; RESP 18; TEMP 97.8; O2SAT 100
--- NOTE | 2017-06-12 20:08 | PD ---
HPI Chief Complaint: Musculoskeletal Complaint Time Seen by Provider: 19:36 Travel History International Travel<30 days: No Contact w/Intl Traveler<30days: No Traveled to known affect area: No History of Present Illness HPI Pt is an 86-year-old female presenting to emerge from for evaluation of back pain. Patient denies any recent injury or trauma. Patient states that she was admitted to the hospital on May 25 for the same condition. She reports going to physical therapy last Saturday and since that time the pain is gotten worse. Patient is ambulatory in triage. Symptom onset was gradual, symptom severity is moderate, there are no alleviating or exacerbating factors. PFSH Past Medical History Hx Anticoagulant Therapy: Yes (ELIQUIS) Arthritis: No Asthma: No Atrial Fibrillation: Yes (flutter RVR) Blood Disorders: No Anxiety: No Depression: No Heart Rhythm Problems: No Cancer: No Cardiovascular Problems: Yes (currently with aneurisms, afib hx and on eliquis) High Cholesterol: No Chemotherapy: No Chest Pain: No Congestive Heart Failure: No COPD: No Cerebrovascular Accident: No Coronary Artery Disease: Yes Diabetes: No Diminished Hearing: No Endocrine: No Fibromyalgia: Yes Gastrointestinal Disorders: Yes (COLITIS, RECTAL MASS) GERD: Yes Glaucoma: No Genitourinary: No Headaches: Yes Hepatitis: No Hiatal Hernia: No Heparin Induced Thrombocytopen: No Hypertension: Yes Immune Disorder: No Implanted Vascular Access Dvce: No Kidney Stones: No Musculoskeletal: Yes (fibromyalgia) Neurologic: Yes (back pain, L2 compression currently) Psychiatric: No Reproductive: No Respiratory: No Immunizations Current: Yes Migraines: No Myocardial Infarction: No Radiation Therapy: No Renal Failure: No Seizures: No Sickle Cell Disease: No Sleep Apnea: No Thyroid Disease: No Ulcer: No Menopausal: Yes : 2 Para: 2 Past Surgical History Abdominal Surgery: No AICD: No Appendectomy: No Arteriovenous Shunt: No Cholecystectomy: No Ear Surgery: No Endocrine Surgery: No Eye Surgery: Yes (cataracts removed giuseppe) Genitourinary Surgery: No Gynecologic Surgery: No Insulin Pump: No Joint Replacement: No Neurologic Surgery: No Oral Surgery: Yes (gingivitis) Pacemaker: No Thoracic Surgery: No Tonsillectomy: Yes Other Surgery: Yes (LIPOMA LEFT ARM) Social History Alcohol Use: Yes (OCCASIONALLY) Tobacco Use: No Substance Use: No Allergies-Medications (Allergen,Severity, Reaction): Coded Allergies: doxycycline (Unverified Allergy, Intermediate, UNKNOWN, 05/25/17) minocycline (Unverified Allergy, Intermediate, UNKNOWN, 05/25/17) tigecycline (Unverified Allergy, Intermediate, UNKNOWN, 05/25/17) pantoprazole (Unverified Allergy, Unknown, 05/25/17) codeine (Unverified Adverse Reaction, Intermediate, UPSET STOMACH, 05/25/17) prednisone (Unverified Adverse Reaction, Mild, Nausea/Vomiting, 05/25/17) amiodarone (Verified Adverse Reaction, Unknown, 05/25/17) amlodipine (Verified Adverse Reaction, Unknown, 05/25/17) Reported Meds & Prescriptions Reported Meds & Active Scripts Active Baclofen 10 Mg Tab 5 Mg PO Q8HR Reported Lisinopril 10 Mg Tab 10 Mg PO DAILY Prolia Inj (Denosumab) 60 Mg/Ml Inj 60 Mg SQ Q180D Vitamin D3 (Cholecalciferol) 1,000 Unit Tab 1,000 Units PO DAILY Levothyroxine (Levothyroxine Sodium) 88 Mcg Tab 88 Mcg PO DAILY Ranitidine (Ranitidine HCl) 150 Mg Tab 150 Mg PO BID K-Tab (Potassium Chloride) 20 Meq Tab 20 Meq PO DAILY Lasix (Furosemide) 40 Mg Tab 40 Mg PO DAILY Eliquis (Apixaban) 5 Mg Tab 5 Mg PO BID Welchol (Colesevelam HCl) 625 Mg Tab 625 Mg PO TID Review of Systems Except as stated in HPI: all other systems reviewed are Neg Musculoskeletal: Positive: Pain Physical Exam Narrative GENERAL: Well-developed, well-nourished, alert elderly female. Presenting in no acute distress. SKIN: Warm and dry. HEAD: Normocephalic. EYES: No scleral icterus. No injection or drainage. NECK: Supple, trachea midline. No JVD or lymphadenopathy. CARDIOVASCULAR: Regular rate RESPIRATORY: No accessory muscle use. Data Data Last Documented VS Vital Signs Date Time Temp Pulse Resp B/P (MAP) Pulse Ox O2 Delivery O2 Flow Rate FiO2 06/12/17 19:36 97.8 94 18 152/72 (98) 100 MDM Medical Decision Making Medical Screen Exam Complete: Yes Emergency Medical Condition: Yes Medical Record Reviewed: Yes Interpretation(s) Vital Signs Date Time Temp Pulse Resp B/P (MAP) Pulse Ox O2 Delivery O2 Flow Rate FiO2 06/12/17 19:36 97.8 94 18 152/72 (98) 100 Differential Diagnosis Radiculopathy versus myalgia versus muscle strain versus other. Narrative Course Patient is a 86-year-old female presented to the emergency room for evaluation of chronic back pain. Medical records reviewed, patient was admitted on May 25 for intractable back pain. Patient's vital signs are stable, she is awaiting bed placement. Patient presented to the triage desk stating that she did not want to wait, she then left AGAINST MEDICAL ADVICE. AMA: The risks of leaving against medical advice without further evaluation treatment were discussed with the patient. These risks include cardiac dysfunction, cardiac dysrhythmia, possible heart attack, possible stroke or . The patient indicated understanding of these risks and appeared to have the capacity to make this decision. Diagnosis Primary Impression: Left against medical advice Marilin Arnold Jun 12, 2017 20:08
== END 2017-06-13 02:23 | disposition left against medical advice (07) ==
LOC: NED 19:16
DX: M54.9 Dorsalgia, unspecified (principal); G89.29 Other chronic pain; I48.91 Unspecified atrial fibrillation; I25.10 Atherosclerotic heart disease of native coronary artery without angina pectoris; I10 Essential (primary) hypertension; I72.9 Aneurysm of unspecified site; M79.7 Fibromyalgia; K21.9 Gastro-esophageal reflux disease without esophagitis; Z53.20 Procedure and treatment not carried out because of patient's decision for unspecified reasons
CPT/HCPCS: 99281

== ENCOUNTER 2017-06-15 05:22 | Observation (INO) | payer MEDICARE, OTHER ==
[~2017-06-15] VITALS: Ht 157.5 cm; Wt 70.0 kg
[2017-06-15 05:34] VITALS: BP 187/71; PULSE 73; RESP 18; TEMP 97.4; O2SAT 99
[2017-06-15] MEDS ORDERED: ONDANSETRON HCL 4 MG/2 ML VIAL IV PUSH ONE (07:00)
[2017-06-15] MEDS ORDERED: MORPHINE SULFATE 8 MG/ML INJ IV PUSH ONE (07:45)
[2017-06-15 08:38] LABS: ALKALINE PHOSPHATASE 63 U/L (45-117); ALT (GPT) 19 U/L (10-53); TOTAL BILIRUBIN ADULT 0.5 MG/DL (0.2-1.0); TOTAL PROTEIN 7.7 GM/DL (6.4-8.2)
[2017-06-15 08:40] LABS: ALBUMIN 3.6 GM/DL (3.4-5.0); AST (GOT) 45 U/L (15-37); BLOOD UREA NITROGEN 14 MG/DL (7-18); CALCIUM 8.5 MG/DL (8.5-10.1); CHLORIDE 88 MEQ/L (98-107); GLOMERULAR FILTRATION RATE 68 ML/MIN (>89); GLUCOSE,RANDOM 91 MG/DL (74-106); SODIUM (NA) 125 MEQ/L (136-145)
[2017-06-15] MEDS ORDERED: SODIUM CHLOR 0.9% 1000 ML INJ 1,000 ML IV SCH (09:00)
[2017-06-15 09:14] LABS: BACTERIA, URINE OCC /hpf; BILIRUBIN, URINE NEG (NEG); BLOOD, URINE SMALL (NEG); GLUCOSE,URINE NEG (NEG); KETONE, URINE 40 mg/dL (NEG); MUCUS URINE MANY /lpf (OCC); NITRITE,URINE NEG (NEG); SQUAMOUS EPITHELIAL CELL URINE <1 /hpf (0-5); URINE COLOR YELLOW (YELLW/STRAW); URINE LEUKOCYTE ESTERASE NEG (NEG)
[2017-06-15] MEDS ORDERED: MAGNESIUM HYDROXIDE SUSP 30 ML CUP PO PRN (09:45)
[2017-06-15] MEDS ORDERED: SODIUM CHLORIDE 0.9% FLUSH 10 ML FLUSH IV FLUSH PRN (09:45)
[2017-06-15] MEDS ORDERED: ONDANSETRON HCL 4 MG/2 ML VIAL IVP PRN (09:45)
[2017-06-15] MEDS ORDERED: NALOXONE HCL 0.4 MG/ML AMP IV PUSH PRN ×2 (09:45→10:45)
[2017-06-15] MEDS ORDERED: LACTULOSE SYRUP 20 GM/30 ML CUP PO PRN (09:45)
[2017-06-15] MEDS ORDERED: ACETAMINOPHEN 325 MG TAB PO PRN (09:45)
[2017-06-15] MEDS ORDERED: SENNOSIDES 8.6 MG TAB PO PRN (09:45)
[2017-06-15] MEDS ORDERED: BISACODYL 10 MG SUPP RECTAL PRN (09:45)
--- NOTE | 2017-06-15 09:50 | HHI.HP ---
[facility] Service Family Medicine Primary Care Physician Malachi Hua MD Admission Diagnosis Diagnoses: International Travel<30 Days: No Contact w/Intl Traveler<30days: No History of Present Illness Patient is an 86 year old female with history of A. fib on Eliquis, HTN, Hyperlipidemia, CHF (Echo 06/25/16 w/ EF 30-35%), AAA, Anxiety, Depression, Fibromyalgia, Chronic Back Pain and h/o Compression Fx who presented via personal vehicle with nausea, vomiting, acute on chronic back pain. Vomiting episodes began on 06/14 after lunchtime, initially looking like food but became frothy. No vomiting today and main complaint is back pain. She mostly complains of the chronic pain which she "can't manage" at home. The pain is located in the lower back, severity after morphine 0/10. She sees pain management who recently started her on Tramadol (first dose night). She notes feeling nausea immediately after taking first dose. Getting outpatient rehab but pain has reportedly become intractable. Coming from home. PCP is Dr. Stark and seeing a pain specialist in [place]. On evaluation, temp 97.4F, pulse 73, resp 18, BP 187/71. She states she may have not taken medications last night. Lab notable for sodium 125, normal creatinine. UA negative. Previous hospitalization early May is notable for CT chest showing thoracic aortic aneurysm. CT Abdomen/Pelvis diffuse atherosclerosis, aneurysmal dilatation of descending thoracic aorta. CT L-spine remote appearing vertebral plan a deformity at T12 with retropulsion and canal stenosis, non-acute L2 compression fracture. CT T-spine T12 patchy sclerosis, retropulsion and moderate canal stenosis, L2 compression deformity nonacute. Has history of observation hospitalization in early May 2017 for chronic pain management, was discharged to home with outpt PT. Dr. Stringer consulted by ER physician in light of aneurysm, no emergent intervention, evaluated in consultation and appears no urgent intervention was recommended. Her sodium on arrival was 128 at that time. Review of Systems Constitutional: DENIES: Fever, Chills, Dizziness Endocrine: DENIES: Polydipsia, Polyuria, Polyphagia Eyes: COMPLAINS OF: Photosensitivity, DENIES: Blurred vision, Diplopia Ears, nose, mouth, throat: DENIES: Hearing loss, Throat pain Respiratory: DENIES: Cough, Shortness of breath Cardiovascular: COMPLAINS OF: Lower Extremity Edema, DENIES: Chest pain, Palpitations, Syncope Gastrointestinal: COMPLAINS OF: Constipation, Nausea, Vomiting, DENIES: Abdominal pain, Black stools, Bloody stools, Diarrhea, Difficulty Swallowing Integumentary: DENIES: Pruritus, Rash Neurologic: COMPLAINS OF: Abnormal gait, Poor Balance, DENIES: Headache, Seizures Psychiatric: COMPLAINS OF: Confusion, DENIES: Anxiety, Depression Past Family Social History Past Medical History Anxiety Depression Fibromyalgia A. fib on Eliquis HTN, Hyperlipidemia CHF (Echo 06/25/16 w/ EF 30-35%) Chronic Back Pain and h/o Compression Fx Past Surgical History Cataract Surgery Tonsillectomy Lipoma Kyphoplasty 2008 Reported Medications Reported Meds & Active Scripts Active Baclofen 10 Mg Tab 5 Mg PO Q8HR Reported Lisinopril 10 Mg Tab 10 Mg PO DAILY Prolia Inj (Denosumab) 60 Mg/Ml Inj 60 Mg SQ Q180D Vitamin D3 (Cholecalciferol) 1,000 Unit Tab 1,000 Units PO DAILY Levothyroxine (Levothyroxine Sodium) 88 Mcg Tab 88 Mcg PO DAILY Ranitidine (Ranitidine HCl) 150 Mg Tab 150 Mg PO BID K-Tab (Potassium Chloride) 20 Meq Tab 20 Meq PO DAILY Lasix (Furosemide) 40 Mg Tab 40 Mg PO DAILY Eliquis (Apixaban) 5 Mg Tab 5 Mg PO BID Welchol (Colesevelam HCl) 625 Mg Tab 625 Mg PO TID Allergies: Coded Allergies: doxycycline (Unverified Allergy, Intermediate, UNKNOWN, 06/15/17) minocycline (Unverified Allergy, Intermediate, UNKNOWN, 06/15/17) tigecycline (Unverified Allergy, Intermediate, UNKNOWN, 06/15/17) pantoprazole (Unverified Allergy, Unknown, 06/15/17) codeine (Unverified Adverse Reaction, Intermediate, UPSET STOMACH, 06/15/17 ) prednisone (Unverified Adverse Reaction, Mild, Nausea/Vomiting, 06/15/17) amiodarone (Verified Adverse Reaction, Unknown, 06/15/17) amlodipine (Verified Adverse Reaction, Unknown, 06/15/17) Active Ordered Medications Inpatient Medications Acetaminophen (Tylenol) 650 mg Q4H PRN PO TEMP > 100.4; Start 06/15/17 at 09:45 Bisacodyl (Dulcolax Supp) 10 mg DAILY PRN RECTAL SEVERE CONSITIPATION; Start at 09:45 Lactulose (Lactulose Liq) 30 ml DAILY PRN PO SEVERE CONSITIPATION; Start at 09:45 Magnesium Hydroxide (Milk Of Magnesia Liq) 30 ml Q12H PRN PO Mild constipation ; Start 06/15/17 at 09:45 Morphine Sulfate (Morphine Inj) 5 mg ONCE ONCE IV PUSH Last administered on at 07:55; Start 06/15/17 at 07:45; Stop 06/15/17 at 07:46; Status DC Naloxone HCl (Narcan Inj) 0.4 mg UNSCH PRN IV PUSH SEE LABEL COMMENTS; Start at 09:45 Ondansetron HCl (Zofran Inj) 4 mg Q6H PRN IVP NAUSEA OR VOMITING; Start at 09:45 Senna/Docusate Sodium (Beatrice-Colace) 1 tab BID PO ; Start 06/15/17 at 21:00 Sennosides (Senokot) 17.2 mg Q12H PRN PO Moderate constipation; Start 06/15/17 at 09:45 Sodium Chloride (NS Flush) 2 ml UNSCH PRN IV FLUSH FLUSH AFTER USING IV ACCESS ; Start 06/15/17 at 09:45 Family History Mother aged 45 from CVA/ACS. Brother with back problems. Social History Occasional alcohol. Negative for tobacco or drugs. 's name is Abdelrahman [phone]? Physical Exam Vital Signs Vital Signs Date Time Temp Pulse Resp B/P (MAP) Pulse Ox O2 Delivery O2 Flow Rate FiO2 06/15/17 05:34 97.4 73 18 187/71 (109) 99 Physical Exam GENERAL: This is a well-nourished, well-developed elderly female in no apparent distress. SKIN: No rashes, ecchymoses or lesions. Cool and dry. HEAD: Atraumatic. Normocephalic. No temporal or scalp tenderness. EYES: PERRLA. Cataracts noted bilaterally. Extraocular motions intact. No scleral icterus. No injection or drainage. ENT: Nose without bleeding or purulent drainage. Throat without erythema, tonsillar hypertrophy or exudate. Uvula midline. Airway patent. NECK: Trachea midline. No JVD or lymphadenopathy. Supple, nontender, no meningeal signs. CARDIOVASCULAR: Regular rate and rhythm without murmurs, gallops, or rubs. 2+ pulses in all extremities. RESPIRATORY: Clear to auscultation aside from inspiratory wheezes in upper airways. Breath sounds equal bilaterally. No rales or rhonchi. GASTROINTESTINAL: Abdomen soft, non-tender, nondistended. No hepato-splenomegaly , or palpable masses. No guarding. Normal bowel sounds. MUSCULOSKELETAL: Back examined with no evidence of stepoffs, fractures, malalignment. She is moving all extremities well. She has 3/5 LE strength but suspect effort is poor. Normal UE strength 5/5. Normal sensation throughout extremities. Extremities without clubbing, cyanosis. Mild 1+ pitting edema bilaterally, equal. No joint tenderness or effusion. No calf tenderness. Negative Homans sign bilaterally. SACRUM: normal in appearance with no lesions, no erythema. NEUROLOGICAL: Awake and alert. Cranial nerves II through XII intact. Motor and sensory grossly within normal limits. Normal speech. Laboratory Laboratory Tests Test 06/15/17 07:15 06/15/17 08:50 06/15/17 09:20 Blood Urea Nitrogen 14 Creatinine 0.80 Random Glucose 91 Total Protein 7.7 Albumin 3.6 Calcium Level 8.5 Alkaline Phosphatase 63 Aspartate Amino Transf (AST/SGOT) 45 Alanine Aminotransferase (ALT/SGPT) 19 Total Bilirubin 0.5 Sodium Level 125 Potassium Level 4.4 Chloride Level 88 Carbon Dioxide Level 27.0 Anion Gap 10 Estimat Glomerular Filtration Rate 68 Lipase 65 Urine Color YELLOW Urine Turbidity CLEAR Urine pH 6.0 Urine Specific [place] 1.019 Urine Protein 30 Urine Glucose (UA) NEG Urine Ketones 40 Urine Occult Blood SMALL Urine Nitrite NEG Urine Bilirubin NEG Urine Urobilinogen LESS THAN 2.0 Urine Leukocyte Esterase NEG Urine RBC 7 Urine WBC LESS THAN 1 Urine Squamous Epithelial Cells <1 Urine Bacteria OCC Urine Mucus MANY Microscopic Urinalysis Comment CULT NOT INDICATED Result Diagram: 06/15/17 0715 Caprini VTE Risk Assessment Caprini VTE Risk Assessment: Mod/High Risk (score >= 2) Caprini Risk Assessment Model Point Value = 1 Point Value = 2 Point Value = 3 Point Value = 5 Age 41-60 Minor surgery BMI > 25 kg/m2 Swollen legs Varicose veins or History of unexplained or recurrent spontaneous Oral contraceptives or hormone replacement Sepsis (< 1 month) Serious lung disease, including pneumonia (< 1 month) Abnormal pulmonary function Acute myocardial infarction Congestive heart failure (< 1 month) History of inflammatory bowel disease Medical patient at bed rest Age 61-74 Arthroscopic surgery Major open surgery (> 45 min) Laparoscopic surgery (> 45 min) Malignancy Confined to bed (> 72 hours) Immobilizing plaster cast Central venous access Age >= 75 History of VTE Family history of VTE Factor V Leiden Prothrombin [id number] Lupus anticoagulant Anticardiolipin antibodies Elevated serum homocysteine Heparin-induced thrombocytopenia Other congenital or acquired thrombophilia Stroke (< 1 month) Elective arthroplasty Hip, pelvis, or leg fracture Acute spinal cord injury (< 1 month) Prophylaxis Regimen Total Risk Factor Score Risk Level Prophylaxis Regimen 0-1 Low Early ambulation 2 Moderate Order ONE of the following: *Sequential Compression Device (SCD) *Heparin 5000 units SQ BID 3-4 Higher Order ONE of the following medications: *Heparin 5000 units SQ TID *Enoxaparin/Lovenox 40 mg SQ daily (WT < 150 kg, CrCl > 30 mL/min) *Enoxaparin/Lovenox 30 mg SQ daily (WT < 150 kg, CrCl > 10-29 mL/min) *Enoxaparin/Lovenox 30 mg SQ BID (WT < 150 kg, CrCl > 30 mL/min) AND/OR *Sequential Compression Device (SCD) 5 or more Highest Order ONE of the following medications: *Heparin 5000 units SQ TID (Preferred with Epidurals) *Enoxaparin/Lovenox 40 mg SQ daily (WT < 150 kg, CrCl > 30 mL/min) *Enoxaparin/Lovenox 30 mg SQ daily (WT < 150 kg, CrCl > 10-29 mL/min) *Enoxaparin/Lovenox 30 mg SQ BID (WT < 150 kg, CrCl > 30 mL/min) AND *Sequential Compression Device (SCD) Assessment and Plan Assessment and Plan 86 year old female with A. fib on Eliquis, HTN, Hyperlipidemia, CHF (Echo w/ EF 30-35%), AAA, Anxiety, Depression, Fibromyalgia, Chronic Back Pain and h/o Compression Fx who presents with nausea, vomiting, and acute exacerbation of chronic pain. She has been found to have hyponatremia, and will be admitted to observation for further management. Disposition: anticipate overnight stay for sodium management, pain management. Expect d/c back to home, will have PT evaluate. Code Status FULL CODE Discussed Condition With Seen and discussed with Dr. Cifuentes, will discuss with Dr. Mcclendon Problem List: (1) Hyponatremia ICD Codes: E87.1 - Hypo-osmolality and hyponatremia Status: Acute Plan: Acute but with long history per pt. Hyponatremia 125 on arrival. S/p 1 liter bolus NS in ED. Symptoms possibly associated with HypoNa: nausea, vomiting , confusion, weakness * Serial BMP, goal increase <8meq over first 24hr * NS @ 125cc/hr for now * Will allow regular diet for now, de-escalate if nausea returns * Monitor on telemetry - NSR on monitor * 12-lead EKG ordered, will f/u * Urine sodium, Urine Osmolality ordered (2) Back pain ICD Codes: M54.9 - Dorsalgia, unspecified Status: Chronic Plan: Chronic. Ambulating. No recent injuries or falls reported. No neurologic or vascular deficits. Hx osteoporosis on vit D, denosumab. Patient was recently started on Tramadol (06/13) and nausea occurred shortly thereafter. Possibly related to current symptoms. * PT ordered to assist with d/c planning, anticipate to home with continued outpt PT * No imaging needed at this time, had CT scans early May 2017 * Will hold Tramadol and try [place] 5 for pain 1-5, 10 for pain 6-10. Received 5mg morphine IV in ED which caused all pain to go away, will reserve for breakthrough (4mg IV q3hr PRN, hold for sedation). * Continue Baclofen 5mg PO q8hr PRN * Continue vit D (3) CHF (congestive heart failure) ICD Codes: I50.9 - Heart failure, unspecified Status: Chronic Plan: Chronic, stable. Echo 06/25/16 w/ EF 30-35%. On Lisinopril 10mg daily, Lasix 40mg daily, Kcl 20meq daily. Notably not on spironolactone or Entresto. Monitor on telemetry given (4) A-fib ICD Codes: I48.91 - Unspecified atrial fibrillation Status: Acute Plan: Chronic, continue Eliquis 5mg BID. Telemetry for hypoNa (5) AAA (abdominal aortic aneurysm) ICD Codes: I71.4 - Abdominal aortic aneurysm, without rupture Status: Chronic Plan: 05/25/2017: CT Abdomen/Pelvis w/ focal aneurysmal dilatation of descending thoracic aorta 4.1cm and ascending aorta 4.2cm, images reviewed by me. Dr. Stringer consulted by ER physician, no emergent intervention needed, will see in consultation. Monitor VS closely, asymptomatic at this time. Likely requires outpt followup (6) Hypothyroidism ICD Codes: E03.9 - Hypothyroidism, unspecified Status: Chronic Plan: Continue home dose levothyroxine 88 mcg daily (7) Fluids/Electrolytes/Nutrition/Prophylaxis Status: Acute Plan: Fluids: 1L NS bolus + NS @ 125cc/hr, PO hydration Electrolytes: monitor closely, hypoNa on admission Nutrition: regular diet PPx: On Eliquis for afib. SCDs. Stool regimen. Ranitidine on home med list, will continue 150mg PO BID. PRN: clonidine 0.1mg q6hr PRN SBP >180/DBP>100 Problem Qualifiers (1) Back pain: Qualified Codes: M54.5 - Low back pain; G89.29 - Other chronic pain (2) CHF (congestive heart failure): Qualified Codes: I50.22 - Chronic systolic (congestive) heart failure (3) A-fib: Qualified Codes: I48.2 - Chronic atrial fibrillation (4) AAA (abdominal aortic aneurysm): Qualified Codes: I71.4 - Abdominal aortic aneurysm, without rupture (5) Hypothyroidism: Qualified Codes: E03.9 - Hypothyroidism, unspecified Carina Mancilla MD Jun 15, 2017 09:50
[2017-06-15] MEDS: SODIUM CHLOR 0.9% 1000 ML INJ 1,000 ML IV SCH ×2 (10:00→21:47)
[2017-06-15 10:02] LABS: AUTOMATED NEUTROPHIL # 6.6 TH/MM3 (1.8-7.7); BASOPHIL # 0.1 TH/MM3 (0-0.2); BASOPHIL % 0.8 % (0.0-2.0); EOSINOPHIL % 0.5 % (0.0-4.0); HEMOGLOBIN 13.9 GM/DL (11.6-15.3); LYMPHOCYTE # 1.7 TH/MM3 (1.0-4.8); MEAN CELL VOLUME 89.7 FL (80.0-100.0); MEAN CORPUSCULAR HEMOGLOBIN 32.9 PG (27.0-34.0); MEAN PLATELET VOLUME 9.2 FL (7.0-11.0); NEUT % 69.7 % (16.0-70.0); PLATELET COUNT 289 TH/MM3 (150-450); RED BLOOD COUNT 4.23 MIL/MM3 (4.00-5.30); RED CELL DISTRIBUTION WIDTH 15.2 % (11.6-17.2); WHITE BLOOD COUNT 9.4 TH/MM3 (4.0-11.0)
[2017-06-15 10:06] LABS: MEAN CORPUSCULAR HGB CONC 36.6 % (32.0-36.0)
--- NOTE | 2017-06-15 10:11 | PD ---
HPI Chief Complaint: GI Complaint Time Seen by Provider: 07:23 Travel History International Travel<30 days: No Contact w/Intl Traveler<30days: No Traveled to known affect area: No History of Present Illness HPI This is an 86-year-old female with history of chronic back pain, atrial fibrillation, who presents today with complaints of nausea vomiting. Patient states that she was just recently seen by her pain management doctor who put her on tramadol. She states that she is also on baclofen and feels as though the tramadol has caused her to have nausea vomiting. Patient also reports severe back pain. She states this is not new however the tramadol does not seem to be working. Patient also complaining of weakness/generalized. There is no reported fevers, chills. There is no reported dysuria, urgency, frequency. There is no reported incontinence. PFSH Past Medical History Hx Anticoagulant Therapy: Yes (ELIQUIS) Arthritis: No Asthma: No Atrial Fibrillation: Yes (flutter RVR) Blood Disorders: No Anxiety: No Depression: No Heart Rhythm Problems: No Cancer: No Cardiovascular Problems: Yes (currently with aneurisms, afib hx and on eliquis) High Cholesterol: No Chemotherapy: No Chest Pain: No Congestive Heart Failure: No COPD: No Cerebrovascular Accident: No Coronary Artery Disease: Yes Diabetes: No Diminished Hearing: No Endocrine: No Fibromyalgia: Yes Gastrointestinal Disorders: No (COLITIS, RECTAL MASS) GERD: Yes Glaucoma: No Genitourinary: No Headaches: Yes Hepatitis: No Hiatal Hernia: No Heparin Induced Thrombocytopen: No Hypertension: Yes Immune Disorder: No Implanted Vascular Access Dvce: No Kidney Stones: No Medical other: Yes (FIBROMYALGIA) Musculoskeletal: Yes (fibromyalgia) Neurologic: Yes (back pain, L2 compression currently) Psychiatric: No Reproductive: No Respiratory: No Immunizations Current: Yes Migraines: No Myocardial Infarction: No Radiation Therapy: No Renal Failure: No Seizures: No Sickle Cell Disease: No Sleep Apnea: No Thyroid Disease: No Ulcer: No Menopausal: Yes : 2 Para: 2 Past Surgical History Abdominal Surgery: No AICD: No Appendectomy: No Arteriovenous Shunt: No Cholecystectomy: No Ear Surgery: No Endocrine Surgery: No Eye Surgery: Yes (cataracts removed giuseppe) Genitourinary Surgery: No Gynecologic Surgery: No Insulin Pump: No Joint Replacement: No Neurologic Surgery: No Oral Surgery: Yes (gingivitis) Pacemaker: No Thoracic Surgery: No Tonsillectomy: Yes Other Surgery: Yes (kyphoplasty) Social History Alcohol Use: Yes (OCCASIONALLY) Tobacco Use: No Substance Use: No Allergies-Medications (Allergen,Severity, Reaction): Coded Allergies: doxycycline (Unverified Allergy, Intermediate, UNKNOWN, 06/15/17) minocycline (Unverified Allergy, Intermediate, UNKNOWN, 06/15/17) tigecycline (Unverified Allergy, Intermediate, UNKNOWN, 06/15/17) pantoprazole (Unverified Allergy, Unknown, 06/15/17) codeine (Unverified Adverse Reaction, Intermediate, UPSET STOMACH, 06/15/17 ) prednisone (Unverified Adverse Reaction, Mild, Nausea/Vomiting, 06/15/17) amiodarone (Verified Adverse Reaction, Unknown, 06/15/17) amlodipine (Verified Adverse Reaction, Unknown, 06/15/17) Reported Meds & Prescriptions Reported Meds & Active Scripts Active Baclofen 10 Mg Tab 5 Mg PO Q8HR Reported Lisinopril 10 Mg Tab 10 Mg PO DAILY Prolia Inj (Denosumab) 60 Mg/Ml Inj 60 Mg SQ Q180D Vitamin D3 (Cholecalciferol) 1,000 Unit Tab 1,000 Units PO DAILY Levothyroxine (Levothyroxine Sodium) 88 Mcg Tab 88 Mcg PO DAILY Ranitidine (Ranitidine HCl) 150 Mg Tab 150 Mg PO BID K-Tab (Potassium Chloride) 20 Meq Tab 20 Meq PO DAILY Lasix (Furosemide) 40 Mg Tab 40 Mg PO DAILY Eliquis (Apixaban) 5 Mg Tab 5 Mg PO BID Welchol (Colesevelam HCl) 625 Mg Tab 625 Mg PO TID Review of Systems ROS Limitations: Poor Historian Except as stated in HPI: all other systems reviewed are Neg General / Constitutional: No: Fever, Chills HENT: Positive: Lightheadedness, No: Neck Pain Cardiovascular: No: Chest Pain or Discomfort, Palpitations Respiratory: No: Cough, Shortness of Breath Gastrointestinal: Positive: Nausea, Vomiting, No: Diarrhea, Abdominal Pain Genitourinary: No: Dysuria, Incontinence Musculoskeletal: Positive: Weakness (Generalized), Pain (Chronic back pain) Neurologic: Positive: Weakness, Other (Patient reports over the last couple days being forgetful.), No: Headache, Incontinence Physical Exam Narrative GENERAL: Well-developed malnourished female in no acute respiratory distress. SKIN: Focused skin assessment warm/dry. HEAD: Atraumatic. Normocephalic. EYES: Pupils equal and round. No scleral icterus. No injection or drainage. ENT: No nasal bleeding or discharge. Mucous membranes pink and moist. NECK: Trachea midline. No JVD. CARDIOVASCULAR: Regular rate and rhythm. No murmur appreciated. RESPIRATORY: No accessory muscle use. Clear to auscultation. Breath sounds equal bilaterally. GASTROINTESTINAL: Abdomen soft, non-tender, nondistended. Hepatic and splenic margins not palpable. MUSCULOSKELETAL: No obvious deformities. No clubbing. No cyanosis. No edema. NEUROLOGICAL: Awake and confused. No obvious cranial nerve deficits. Motor grossly within normal limits. Normal speech. Data Data Last Documented VS Vital Signs Date Time Temp Pulse Resp B/P (MAP) Pulse Ox O2 Delivery O2 Flow Rate FiO2 06/15/17 05:34 97.4 73 18 187/71 (109) 99 Orders Orders Ondansetron Inj (Zofran Inj) (06/15/17 07:00) Basic Metabolic Panel (Bmp) (06/15/17 07:23) Comprehensive Metabolic Panel (06/15/17 07:23) Lipase (06/15/17 07:23) Urinalysis - C+S If Indicated (06/15/17 07:23) Iv Access Insert/Monitor (06/15/17 07:23) Ecg Monitoring (06/15/17 07:23) Oximetry (06/15/17 07:23) Morphine Inj (Morphine Inj) (06/15/17 07:45) Sodium Chlor 0.9% 1000 Ml Inj (Ns 1000 M (06/15/17 09:00) Complete Blood Count With Diff (06/15/17 09:19) Place In Observation (06/15/17 ) Code Status (06/15/17 09:45) Vital Signs (Adult) Q4H (06/15/17 09:45) Neuro Checks Q4H (06/15/17 09:45) Activity Oob With Assistance (06/15/17 09:45) Intake + Output STANTON.QSHIFT (06/15/17 09:45) Diet Regular Basic (06/15/17 Breakfast) Sodium Chlor 0.9% 1000 Ml Inj (Ns 1000 M (06/15/17 10:00) Sodium Chloride 0.9% Flush (Ns Flush) (06/15/17 21:00) Acetaminophen (Tylenol) (06/15/17 09:45) Ondansetron Inj (Zofran Inj) (06/15/17 09:45) Basic Metabolic Panel (Bmp) (06/16/17 06:00) Complete Blood Count With Diff (06/16/17 06:00) Troponin I (06/15/17 09:45) Electrocardiogram (06/15/17 09:45) Pt Request For Service (06/15/17 09:45) Case Management Consult (06/15/17 09:45) Scd Bilateral/Knee High STANTON.BID (06/15/17 09:45) Naloxone Inj (Narcan Inj) (06/15/17 09:45) Docusate Sodium-Senna (Beatrice-Colace) (06/15/17 21:00) Magnesium Hydroxide Liq (Milk Of Magnesi (06/15/17 09:45) Sennosides (Senokot) (06/15/17 09:45) Bisacodyl Supp (Dulcolax Supp) (06/15/17 09:45) Lactulose Liq (Lactulose Liq) (06/15/17 09:45) Sodium Chloride 0.9% Flush (Ns Flush) (06/15/17 09:45) Basic Metabolic Panel (Bmp) (06/15/17 12:00) Sodium, Random Urine (06/15/17 09:50) Osmolality, Urine (06/15/17 09:50) Admit Order (Ed Use Only) (06/15/17 09:53) Electrocardiogram (06/15/17 09:53) Labs Laboratory Tests Test 06/15/17 07:15 06/15/17 08:50 06/15/17 09:20 Blood Urea Nitrogen 14 MG/DL Creatinine 0.80 MG/DL Random Glucose 91 MG/DL Total Protein 7.7 GM/DL Albumin 3.6 GM/DL Calcium Level 8.5 MG/DL Alkaline Phosphatase 63 U/L Aspartate Amino Transf (AST/SGOT) 45 U/L Alanine Aminotransferase (ALT/SGPT) 19 U/L Total Bilirubin 0.5 MG/DL Sodium Level 125 MEQ/L Potassium Level 4.4 MEQ/L Chloride Level 88 MEQ/L Carbon Dioxide Level 27.0 MEQ/L Anion Gap 10 MEQ/L Estimat Glomerular Filtration Rate 68 ML/MIN Lipase 65 U/L Urine Color YELLOW Urine Turbidity CLEAR Urine pH 6.0 Urine Specific [place]ushing 1.019 Urine Protein 30 mg/dL Urine Glucose (UA) NEG mg/dL Urine Ketones 40 mg/dL Urine Occult Blood SMALL Urine Nitrite NEG Urine Bilirubin NEG Urine Urobilinogen LESS THAN 2.0 MG/DL Urine Leukocyte Esterase NEG Urine RBC 7 /hpf Urine WBC LESS THAN 1 /hpf Urine Squamous Epithelial Cells <1 /hpf Urine Bacteria OCC /hpf Urine Mucus MANY /lpf Microscopic Urinalysis Comment CULT NOT INDICATED White Blood Count 9.4 TH/MM3 Red Blood Count 4.23 MIL/MM3 Hemoglobin 13.9 GM/DL Hematocrit 38.0 % Mean Corpuscular Volume 89.7 FL Mean Corpuscular Hemoglobin 32.9 PG Mean Corpuscular Hemoglobin Concent 36.6 % Red Cell Distribution Width 15.2 % Platelet Count 289 TH/MM3 Mean Platelet Volume 9.2 FL Neutrophils (%) (Auto) 69.7 % Lymphocytes (%) (Auto) 18.0 % Monocytes (%) (Auto) 11.0 % Eosinophils (%) (Auto) 0.5 % Basophils (%) (Auto) 0.8 % Neutrophils # (Auto) 6.6 TH/MM3 Lymphocytes # (Auto) 1.7 TH/MM3 Monocytes # (Auto) 1.0 TH/MM3 Eosinophils # (Auto) 0.0 TH/MM3 Basophils # (Auto) 0.1 TH/MM3 CBC Comment AUTO DIFF Differential Comment AUTO DIFF CONFIRMED MDM Medical Decision Making Medical Screen Exam Complete: Yes Emergency Medical Condition: Yes Differential Diagnosis Metabolic derangement versus exacerbation of back pain versus medication reaction Narrative Course 86-year-old female who presents today with complaints of nausea vomiting and back pain. Patient has a sodium of 125. She has been started on IV fluids. The patient does have a history of atrial fibrillation and is also on blood thinners. Patient has a history of also of congestive heart failure. Given this, she will need to be gently hydrated for her sodium replacement. Case was discussed with Dr. Mancilla, senior resident, who agrees to admit the patient to her service. She will be under Dr. Mcclendon, the attending physician. Diagnosis Primary Impression: Hyponatremia Additional Impressions: Atrial fibrillation Back pain Qualified Codes: M54.5 - Low back pain; G89.29 - Other chronic pain Admitting Information Admitting Physician Requests: Observation Patient Instructions: General Instructions Departure Forms: Tests/Procedures Pawan Palafox MD Jun 15, 2017 10:11
[2017-06-15] MEDS ORDERED: PILL SPLITTER OTHER PRN (11:15)
[2017-06-15 12:00] VITALS: BP 122/69; PULSE 100; RESP 19; O2SAT 98
[2017-06-15] MEDS ORDERED: ACETAMINOPHEN/HYDROcodone 325 MG/7.5 MG TAB PO PRN (12:00)
[2017-06-15] MEDS ORDERED: cloNIDine HCL 0.1 MG TAB PO PRN (12:00)
[2017-06-15] MEDS ORDERED: MORPHINE SULFATE 2 MG/ML INJ IV PUSH PRN (12:00)
[2017-06-15 12:51] LABS: SODIUM,RANDOM URINE 60 MEQ/L
[2017-06-15 12:56] VITALS: O2SAT 97
[2017-06-15 13:09] LABS: OSMOLALITY,URINE 646 MOSM/KG (300-1300)
[2017-06-15] MEDS: LISINOPRIL 10 MG TAB PO SCH (14:14)
[2017-06-15] MEDS: ACETAMINOPHEN/HYDROcodone 325 MG/5 MG TAB PO PRN (14:14)
[2017-06-15] MEDS: APIXABAN 5 MG TABLET PO SCH ×2 (14:14→21:48)
[2017-06-15] MEDS: POTASSIUM CHLORIDE 20 MEQ CONTROLLED RELEASE TAB PO SCH (14:15)
[2017-06-15] MEDS: FUROSEMIDE 40 MG TAB PO SCH (14:15)
[2017-06-15 14:16] VITALS: BP 138/65; PULSE 69
[2017-06-15] MEDS ORDERED: WALKER WHEELS/F1 MIS (14:35)
[2017-06-15] MEDS: COLESEVELAM HCL 625 MG TAB PO SCH ×2 (14:56→18:00)
[2017-06-15] MEDS: BACLOFEN 10 MG TAB PO SCH ×2 (14:56→21:48)
[2017-06-15 15:55] LABS: TROPONIN I LESS THAN 0.02 NG/ML (0.02-0.05)
[2017-06-15 15:57] LABS: TROPONIN I LESS THAN 0.02 NG/ML (0.02-0.05)
[2017-06-15 15:59] LABS: BICARBONATE 28.3 MEQ/L (21.0-32.0); BLOOD UREA NITROGEN 12 MG/DL (7-18); CALCIUM 8.2 MG/DL (8.5-10.1); CHLORIDE 90 MEQ/L (98-107); CREATININE 0.74 MG/DL (0.50-1.00); GLOMERULAR FILTRATION RATE 75 ML/MIN (>89); GLUCOSE,RANDOM 85 MG/DL (74-106); SODIUM (NA) 127 MEQ/L (136-145)
[2017-06-15 18:32] VITALS: BP 158/68; PULSE 64; RESP 16; TEMP 97.7; O2SAT 99
--- NOTE | 2017-06-15 20:05 | EKG ---
Date Performed: 06/15/2017 Time Performed: 13:43:32 PTAGE: 86 years EKG: Sinus rhythm WITH FIRST DEGREE AV BLOCK WITH OCCASIONAL SUPRAVENTRICULAR PREMATURE COMPLEXES POSSIBLE RIGHT VENTR ICULAR CONDUCTION DELAY LEFT VENTRICULAR HYPERTROPHY AND ST-T CHANGE ABNORMAL ECG Since the PREVIOUS TRACING , no significant change noted PREVIOUS TRACIN02/21/2017 11.16 DOCTOR: Felisha Andersen Interpretating Date/Time 06/15/2017 20:03:43
[2017-06-15] MEDS: SODIUM CHLORIDE 0.9% FLUSH 10 ML FLUSH IV FLUSH SCH (21:00)
[2017-06-15] MEDS: DOCUSATE SODIUM 50 MG/SENNA 8.6 MG TAB PO SCH (21:48)
[2017-06-15] MEDS: FAMOTIDINE 20 MG TAB PO SCH (21:48)
[2017-06-15 22:02] LABS: BICARBONATE 29.2 MEQ/L (21.0-32.0); CREATININE 0.91 MG/DL (0.50-1.00)
[2017-06-15 23:19] VITALS: BP 136/62; PULSE 67; RESP 16; TEMP 98; O2SAT 98
[2017-06-16] MEDS: SODIUM CHLOR 0.9% 1000 ML INJ 1,000 ML IV SCH ×2 (02:00→06:17)
[2017-06-16] MEDS ORDERED: LEVOTHYROXINE SODIUM 88 MCG TAB PO SCH (06:00)
[2017-06-16] MEDS: BACLOFEN 10 MG TAB PO SCH (06:16)
[2017-06-16 07:27] LABS: AUTOMATED NEUTROPHIL # 5.6 TH/MM3 (1.8-7.7); BASOPHIL # 0.1 TH/MM3 (0-0.2); BASOPHIL % 0.8 % (0.0-2.0); EOSINOPHIL # 0.1 TH/MM3 (0-0.4); EOSINOPHIL % 1.6 % (0.0-4.0); HEMATOCRIT 34.9 % (35.0-46.0); HEMOGLOBIN 11.8 GM/DL (11.6-15.3); LYMPH % 15.8 % (9.0-44.0); LYMPHOCYTE # 1.3 TH/MM3 (1.0-4.8); MEAN CELL VOLUME 89.8 FL (80.0-100.0); MEAN CORPUSCULAR HEMOGLOBIN 30.5 PG (27.0-34.0); MEAN CORPUSCULAR HGB CONC 33.9 % (32.0-36.0); MEAN PLATELET VOLUME 8.2 FL (7.0-11.0); MONO % 11.9 % (0.0-8.0); NEUT % 69.9 % (16.0-70.0); PLATELET COUNT 289 TH/MM3 (150-450); RED BLOOD COUNT 3.88 MIL/MM3 (4.00-5.30); RED CELL DISTRIBUTION WIDTH 14.8 % (11.6-17.2)
[2017-06-16 07:53] LABS: BICARBONATE 26.5 MEQ/L (21.0-32.0); CREATININE 0.87 MG/DL (0.50-1.00)
[2017-06-16 08:00] VITALS: BP 131/60; PULSE 60; RESP 16; TEMP 98; O2SAT 95
[2017-06-16] MEDS ORDERED: CHOLECALCIFEROL (VIT D3) 1000 UNIT TAB PO SCH (09:00)
[2017-06-16] MEDS ORDERED: HYDR-3516 PO (09:37)
--- NOTE | 2017-06-16 09:37 | HHI.DCPOC ---
Discharge Care Plan Goals to Promote Your Health * To prevent worsening of your condition and complications * To maintain your health at the optimal level Directions to Meet Your Goals Take your medications as prescribed Follow your dietary instruction Follow activity as directed Keep your appointments as scheduled Take your immunizations and boosters as scheduled If your symptoms worsen call your PCP, if no PCP go to Urgent Care Center or Emergency Room Smoking is Dangerous to Your Health. Avoid second hand smoke Call the 24-hour hour crisis hotline for domestic abuse at Delia Friend MD, R3 Jun 16, 2017 09:37
[2017-06-16] MEDS ORDERED: PERI PO (09:39)
--- NOTE | 2017-06-16 09:43 | HHI.FPPN ---
Subjective Remarks No acute events overnight. Vital signs unremarkable. Patient reports that she feels much better. Was able to tolerate oral pain medications well without nausea/vomiting. This morning she is motivated to continue physical therapy but otherwise denies any acute symptoms. (Delia Friend MD, R3) Objective Vitals Vital Signs Date Time Temp Pulse Resp B/P (MAP) Pulse Ox O2 Delivery O2 Flow Rate FiO2 06/16/17 08:00 98.0 60 16 131/60 (83) 95 06/15/17 23:19 98.0 67 16 136/62 (86) 98 06/15/17 22:48 18 06/15/17 18:32 97.7 64 16 158/68 (98) 99 06/15/17 18:06 06/15/17 14:16 69 138/65 (89) 06/15/17 12:56 97 Room Air 06/15/17 12:00 100 19 122/69 (86) 98 Room Air I/O 06/15/17 06/15/17 06/15/17 06/16/17 06/16/17 06/16/17 07:00 15:00 23:00 07:00 15:00 23:00 Intake Total 320 ml Balance 320 ml Intake Oral 320 ml # Voids 2 (Delia Friend MD, R3) Result Diagram: 06/16/17 0704 06/16/17 0704 Objective Remarks GEN: Well-developed, well-nourished patient. No acute distress. Able to sit up and stand independently but with the aid of a walker which she reports that she has at home. Able to do this without evidence of pain. CV: Regular rate and rhythm without obvious murmurs LUNGS: Clear to auscultation bilaterally. Normal respiratory effort. No wheezes , rales, rhonchi. GI: Nondistended EXT: Ambulating without issues. NEURO/PSYCH: Awake, alert. Appropriate insight and judgment. Normal speech (Delia Friend MD, R3) A/P Assessment and Plan 86 year old female with A. fib on Eliquis, HTN, Hyperlipidemia, CHF (Echo w/ EF 30-35%), AAA, Anxiety, Depression, Fibromyalgia, Chronic Back Pain and h/o Compression Fx who presents with nausea, vomiting, and acute exacerbation of chronic pain. Admitted for hyponatremia and pain management. Discharge Planning Today sdw Dr. Mcclendon, Dr. Cifuentes, and Dr. Mancilla (Delia Friend MD, R3) Attending Attestation Round table detailed discussion regarding patients admission and hospital course was held this morning Dr Narayanan, Dr Yen Mancilla, Dr Cifuentes and Dr Melara present during discussion EMR reviewedPatient seen and examined with team Agree with contents of above note See Orders Patient observed transfering from bed to toilet without difficulty (Rafael Mcclendon MD) Problem List: (1) Hyponatremia ICD Codes: E87.1 - Hypo-osmolality and hyponatremia Status: Resolved Plan: Acute but with long history per pt. Hyponatremia 125 on arrival. S/p 1 liter bolus NS in ED. Hyponatremia much improved this morning at 134. Symptoms also improved. 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 (2) Back pain ICD Codes: M54.9 - Dorsalgia, unspecified Status: Chronic Plan: Chronic. Ambulating. No recent injuries or falls reported. No neurologic or vascular deficits. Hx osteoporosis on vit D, denosumab. No imaging needed at this time, had CT scans early May 2017. Patient was recently started on Tramadol (06/13) and nausea occurred shortly thereafter. Possibly related to admission symptoms. -Pain controlled with [place]. -Continue home baclofen and vitamin D. (3) CHF (congestive heart failure) ICD Codes: I50.9 - Heart failure, unspecified Status: Chronic Plan: Chronic, stable. Echo 06/25/16 w/ EF 30-35%. On Lisinopril 10mg daily, Lasix 40mg daily, Kcl 20meq daily. Notably not on spironolactone or Entresto. -continue home meds, asymptomatic otherwise (4) A-fib ICD Codes: I48.91 - Unspecified atrial fibrillation Status: Chronic Plan: Chronic, continue Eliquis 5mg BID. (5) AAA (abdominal aortic aneurysm) ICD Codes: I71.4 - Abdominal aortic aneurysm, without rupture Status: Chronic Plan: 05/25/2017: CT Abdomen/Pelvis w/ focal aneurysmal dilatation of descending thoracic aorta 4.1cm and ascending aorta 4.2cm, images reviewed by me. Dr. Stringer consulted by ER physician, no emergent intervention needed. Monitor VS closely, asymptomatic at this time. Recommend outpt followup (6) Hypothyroidism ICD Codes: E03.9 - Hypothyroidism, unspecified Status: Chronic Plan: Continue home dose levothyroxine 88 mcg daily (7) Fluids/Electrolytes/Nutrition/Prophylaxis Status: Acute Plan: Fluids: PO hydration Electrolytes: see plan under hyponatremia, otherwise monitor and replete as needed. Nutrition: regular diet PPx: On Eliquis for afib. SCDs. Stool regimen. Ranitidine on home med list, will continue 150mg PO BID. PRN: clonidine 0.1mg q6hr PRN SBP >180/DBP>100 (Delia Friend MD, R3) Problem Qualifiers (1) Back pain: Qualified Codes: M54.5 - Low back pain; G89.29 - Other chronic pain (2) CHF (congestive heart failure): Qualified Codes: I50.22 - Chronic systolic (congestive) heart failure (3) A-fib: Qualified Codes: I48.2 - Chronic atrial fibrillation (4) AAA (abdominal aortic aneurysm): Qualified Codes: I71.4 - Abdominal aortic aneurysm, without rupture (5) Hypothyroidism: Qualified Codes: E03.9 - Hypothyroidism, unspecified Delia Friend MD, R3 Jun 16, 2017 09:43 Rafael Mcclendon MD Jun 16, 2017 20:23
[2017-06-16] MEDS: SODIUM CHLORIDE 0.9% FLUSH 10 ML FLUSH IV FLUSH SCH (10:06)
[2017-06-16] MEDS: POTASSIUM CHLORIDE 20 MEQ CONTROLLED RELEASE TAB PO SCH (10:08)
[2017-06-16] MEDS: FAMOTIDINE 20 MG TAB PO SCH (10:08)
[2017-06-16] MEDS: FUROSEMIDE 40 MG TAB PO SCH (10:08)
[2017-06-16] MEDS: LISINOPRIL 10 MG TAB PO SCH (10:08)
[2017-06-16] MEDS: APIXABAN 5 MG TABLET PO SCH (10:08)
[2017-06-16] MEDS: DOCUSATE SODIUM 50 MG/SENNA 8.6 MG TAB PO SCH (10:09)
[2017-06-16] MEDS: ACETAMINOPHEN/HYDROcodone 325 MG/5 MG TAB PO PRN (10:18)
[2017-06-16] MEDS: COLESEVELAM HCL 625 MG TAB PO SCH (11:37)
[2017-06-16 12:05] VITALS: BP 149/70; PULSE 78; RESP 18; TEMP 97.6; O2SAT 97
== END 2017-06-16 14:52 | disposition home or self-care (01) ==
LOC: NEPE 05:22 → NEDA 09:56 → NEPHCDU 18:29
PROVIDERS: ADMIT Family Medicine; ATTEND Family Medicine
DX: E87.1 Hypo-osmolality and hyponatremia (principal); M54.5 Low back pain; I11.0 Hypertensive heart disease with heart failure; I50.22 Chronic systolic (congestive) heart failure; I48.2 Chronic atrial fibrillation; I71.4 Abdominal aortic aneurysm, without rupture; I25.10 Atherosclerotic heart disease of native coronary artery without angina pectoris; E03.9 Hypothyroidism, unspecified; G89.29 Other chronic pain; E78.5 Hyperlipidemia, unspecified; M79.7 Fibromyalgia; I44.0 Atrioventricular block, first degree; K21.9 Gastro-esophageal reflux disease without esophagitis; M48.04 Spinal stenosis, thoracic region; M48.061 Spinal stenosis, lumbar region without neurogenic claudication; I71.2 Thoracic aortic aneurysm, without rupture; F41.9 Anxiety disorder, unspecified; F32.9 Major depressive disorder, single episode, unspecified; M81.0 Age-related osteoporosis without current pathological fracture; Z79.899 Other long term (current) drug therapy; Z79.01 Long term (current) use of anticoagulants
CPT/HCPCS: 80048; 80053; 81001; 83690; 83935; 84300; 84484; 85025; 93005; 96361; 96374; 96375; 96376; 97162; 97530; 99285; G0378; G8987; G8988; J2270; J2405; J7030

== ENCOUNTER 2017-06-16 20:09 | Emergency (ER) | payer MEDICARE, OTHER ==
[~2017-06-16 20:09] MED LIST changes: +HYDR-3516 PO; +PERI PO; +WALKER WHEELS/F1 MIS
[2017-06-16 20:22] VITALS: BP 167/72; PULSE 76; RESP 18; TEMP 97.7; O2SAT 97
--- NOTE | 2017-06-16 22:42 | PD ---
HPI Chief Complaint: Abdominal Pain Time Seen by Provider: 21:45 Travel History International Travel<30 days: No Contact w/Intl Traveler<30days: No Traveled to known affect area: No History of Present Illness HPI Patient came in complaining of back pain, 7, nonrad, breakthrough despite taking her hydrocodone 5 mg tablets. here for pain control...no alleviating/ aggravating factors...no assoc rash/cp/[place]/n/v/d/abdpain/...patient has appointment with her pain management to do local injections to her back in 3 or so days. pain is related to multiple compression fractures. Multiple allergies please note the allergy list Past medical history significant for compression fractures, coronary artery disease, atrial fibrillation on Eliquis, hypertension, constipation, colitis, Of note on chart review May 25, [address] the patient [address] a CT chest abdomen pelvis performed in which she showed ascending thoracic aneurysm as well as descending thoracic and descending abdominal aortic aneurysm. Patient also has on record CHF with an ejection fraction of 30% PFSH Past Medical History Hx Anticoagulant Therapy: Yes (ELIQUIS) Arthritis: No Asthma: No Atrial Fibrillation: Yes (flutter RVR) Blood Disorders: No Anxiety: No Depression: No Heart Rhythm Problems: No Cancer: No Cardiovascular Problems: Yes (aneurisms, afib hx and on eliquis) High Cholesterol: No Chemotherapy: No Chest Pain: No Congestive Heart Failure: No COPD: No Cerebrovascular Accident: No Coronary Artery Disease: Yes Diabetes: No Diminished Hearing: No Endocrine: No Fibromyalgia: Yes Gastrointestinal Disorders: Yes (COLITIS, RECTAL MASS) GERD: Yes Glaucoma: No Genitourinary: No Headaches: Yes Hepatitis: No Hiatal Hernia: No Heparin Induced Thrombocytopen: No Hypertension: Yes Immune Disorder: No Implanted Vascular Access Dvce: No Kidney Stones: No Medical other: Yes (FIBROMYALGIA) Musculoskeletal: Yes (fibromyalgia) Neurologic: Yes (back pain, L2 compression currently) Psychiatric: No Reproductive: No Respiratory: No Immunizations Current: Yes Migraines: No Myocardial Infarction: No Radiation Therapy: No Renal Failure: No Seizures: No Sickle Cell Disease: No Sleep Apnea: No Thyroid Disease: No Ulcer: No Menopausal: Yes : 2 Para: 2 Past Surgical History Abdominal Surgery: No AICD: No Appendectomy: No Arteriovenous Shunt: No Cholecystectomy: No Ear Surgery: No Endocrine Surgery: No Eye Surgery: Yes (cataracts removed giuseppe) Genitourinary Surgery: No Gynecologic Surgery: No Insulin Pump: No Joint Replacement: No Neurologic Surgery: No Oral Surgery: Yes (gingivitis) Pacemaker: No Thoracic Surgery: No Tonsillectomy: Yes Other Surgery: Yes (kyphoplasty) Social History Alcohol Use: Yes (OCCASIONALLY) Tobacco Use: No Substance Use: No Allergies-Medications (Allergen,Severity, Reaction): Coded Allergies: doxycycline (Unverified Allergy, Intermediate, UNKNOWN, 06/15/17) minocycline (Unverified Allergy, Intermediate, UNKNOWN, 06/15/17) tigecycline (Unverified Allergy, Intermediate, UNKNOWN, 06/15/17) pantoprazole (Unverified Allergy, Unknown, 06/15/17) codeine (Unverified Adverse Reaction, Intermediate, UPSET STOMACH, 06/15/17 ) prednisone (Unverified Adverse Reaction, Mild, Nausea/Vomiting, 06/15/17) amiodarone (Verified Adverse Reaction, Unknown, 06/15/17) amlodipine (Verified Adverse Reaction, Unknown, 06/15/17) Reported Meds & Prescriptions Reported Meds & Active Scripts Active Gnp Senna Plus 8.6-50 mg (Sennosides-Docusate Sodium) 8.6 Mg-50 Mg Tab 1 Tab PO BID Hydrocodone-Acetamin 5-325 mg (Hydrocodone/Acetaminophen) 5 Mg-325 Mg Tablet 1 Tab PO Q4-6H PRN Walker with Front Wheels (Device) 1 Mis Mis Ea .XX DIRECTED Baclofen 10 Mg Tab 5 Mg PO Q8HR Reported Lisinopril 10 Mg Tab 10 Mg PO DAILY Prolia Inj (Denosumab) 60 Mg/Ml Inj 60 Mg SQ Q180D Vitamin D3 (Cholecalciferol) 1,000 Unit Tab 1,000 Units PO DAILY Levothyroxine (Levothyroxine Sodium) 88 Mcg Tab 88 Mcg PO DAILY Ranitidine (Ranitidine HCl) 150 Mg Tab 150 Mg PO BID K-Tab (Potassium Chloride) 20 Meq Tab 20 Meq PO DAILY Lasix (Furosemide) 40 Mg Tab 40 Mg PO DAILY Eliquis (Apixaban) 5 Mg Tab 5 Mg PO BID Welchol (Colesevelam HCl) 625 Mg Tab 625 Mg PO TID Review of Systems General / Constitutional: No: Fever Eyes: No: Visual changes HENT: No: Headaches Cardiovascular: No: Chest Pain or Discomfort Respiratory: No: Shortness of Breath Gastrointestinal: No: Abdominal Pain Genitourinary: No: Dysuria Musculoskeletal: Positive: Pain (Back pain) Skin: No Rash Neurologic: No: Weakness Psychiatric: No: Depression Endocrine: No: Polydipsia Hematologic/Lymphatic: No: Easy Bruising Physical Exam Narrative GENERAL: SKIN: Warm and dry. HEAD: Atraumatic. Normocephalic. EYES: Pupils equal and round. No scleral icterus. No injection or drainage. ENT: No nasal bleeding or discharge. Mucous membranes pink and moist. NECK: Trachea midline. No JVD. CARDIOVASCULAR: Regular rate and rhythm. Equal pulses palpated bilaterally, normal capillary refill times RESPIRATORY: No accessory muscle use. Clear to auscultation. Breath sounds equal bilaterally. GASTROINTESTINAL: Abdomen soft, non-tender, nondistended. MUSCULOSKELETAL: Extremities without clubbing, cyanosis, or edema. No obvious deformities. NEUROLOGICAL: Awake and alert. No obvious cranial nerve deficits. Motor grossly within normal limits. Five out of 5 muscle strength in the arms and legs. Normal speech. PSYCHIATRIC: Appropriate mood and affect; insight and judgment normal. Data Data Last Documented VS Orders Orders Ondansetron Odt (Zofran Odt) (06/16/17 22:45) Fentanyl 25 Mcg Patch.72 Hr (Duragesic (06/16/17 23:15) Ed Discharge Order (06/17/17 00:18) [facility] Medical Decision Making Medical Screen Exam Complete: Yes Emergency Medical Condition: Yes Medical Record Reviewed: Yes Differential Diagnosis compression fracture of vertebra Narrative Course patient just recently discharged and returns for chronic back pain due to compression fracture. patient wishes she didn't have to deal with this but this is the life that she must live, patient will follow up with shots Diagnosis Primary Impression: Breakthrough pain secondary to known compression fractures Patient Instructions: Narcotic given in the ED, General Instructions Additional Instructions: please print may 25 ct chest, abd/pelvis, and spine reports and provide to patient Ezio Liu MD Jun 16, 2017 22:42
[2017-06-16] MEDS ORDERED: [UNRECOGNIZED DRUG - OTHER] BUCCAL ONE (22:45)
[2017-06-16] MEDS ORDERED: ONDANSETRON ODT 4 MG TAB PO ONE (22:45)
[2017-06-16] MEDS ORDERED: fentaNYL 25 MCG/HR PATCH T-DERMAL ONE (23:15)
== END 2017-06-17 00:58 | disposition home or self-care (01) ==
LOC: NEPD 20:09
DX: M48.56XA Collapsed vertebra, not elsewhere classified, lumbar region, initial encounter for fracture (principal); G89.29 Other chronic pain; M54.9 Dorsalgia, unspecified; I25.10 Atherosclerotic heart disease of native coronary artery without angina pectoris; I48.91 Unspecified atrial fibrillation; I11.0 Hypertensive heart disease with heart failure; I50.9 Heart failure, unspecified; I71.4 Abdominal aortic aneurysm, without rupture; I71.2 Thoracic aortic aneurysm, without rupture
CPT/HCPCS: 99283

== ENCOUNTER 2017-07-13 09:26 | Emergency (ER) | payer MEDICARE, OTHER ==
[~2017-07-13] VITALS: Ht 154.9 cm; Wt 57.0 kg
[2017-07-13 09:29] VITALS: BP 161/67; PULSE 92; RESP 17; TEMP 98.3; O2SAT 98
[2017-07-13 09:45] VITALS: BP 204/85; PULSE 81; RESP 19; O2SAT 94
[2017-07-13 10:17] LABS: AUTOMATED NEUTROPHIL # 7.3 TH/MM3 (1.8-7.7); BASOPHIL # 0.1 TH/MM3 (0-0.2); BASOPHIL % 1.1 % (0.0-2.0); EOSINOPHIL # 0.1 TH/MM3 (0-0.4); HEMATOCRIT 37.6 % (35.0-46.0); HEMOGLOBIN 13.5 GM/DL (11.6-15.3); LYMPH % 17.3 % (9.0-44.0); LYMPHOCYTE # 1.8 TH/MM3 (1.0-4.8); MEAN CELL VOLUME 89.6 FL (80.0-100.0); MEAN CORPUSCULAR HEMOGLOBIN 32.2 PG (27.0-34.0); MEAN CORPUSCULAR HGB CONC 35.9 % (32.0-36.0); MEAN PLATELET VOLUME 7.9 FL (7.0-11.0); MONO % 9.7 % (0.0-8.0); NEUT % 70.9 % (16.0-70.0); PLATELET COUNT 346 TH/MM3 (150-450); RED CELL DISTRIBUTION WIDTH 15.6 % (11.6-17.2); WHITE BLOOD COUNT 10.2 TH/MM3 (4.0-11.0)
--- NOTE | 2017-07-13 10:17 | PD ---
HPI Chief Complaint: Abdominal Pain Time Seen by Provider: 09:43 Travel History International Travel<30 days: No Contact w/Intl Traveler<30days: No Traveled to known affect area: No History of Present Illness HPI 86yo F with PMH of afib on eliquis, HTN, chronic constipation, chronic back pain from compression fracture, aortic aneurysm here with c/o abdominal pain and back pain for a while but worst yesterday. Pain is mid abdomen and pt feels like she is constipation. She had small bowel movement this morning. Denies any fever, chest pain, sob, n/v, new focal weakness or numbness. PFSH Past Medical History Hx Anticoagulant Therapy: Yes (ELIQUIS) Arthritis: No Asthma: No Atrial Fibrillation: Yes (flutter RVR) Blood Disorders: No Anxiety: No Depression: No Heart Rhythm Problems: No Cancer: No Cardiovascular Problems: Yes (aneurisms, afib hx and on eliquis) High Cholesterol: No Chemotherapy: No Chest Pain: No Congestive Heart Failure: No COPD: No Cerebrovascular Accident: No Coronary Artery Disease: Yes Diabetes: No Diminished Hearing: No Endocrine: No Fibromyalgia: Yes Gastrointestinal Disorders: Yes (COLITIS, RECTAL MASS) GERD: Yes Glaucoma: No Genitourinary: No Headaches: Yes Hepatitis: No Hiatal Hernia: No Heparin Induced Thrombocytopen: No Hypertension: Yes Immune Disorder: No Implanted Vascular Access Dvce: No Kidney Stones: No Medical other: Yes (FIBROMYALGIA) Musculoskeletal: Yes (fibromyalgia) Neurologic: Yes (back pain, L2 compression currently) Psychiatric: No Reproductive: No Respiratory: No Immunizations Current: Yes Migraines: No Myocardial Infarction: No Radiation Therapy: No Renal Failure: No Seizures: No Sickle Cell Disease: No Sleep Apnea: No Thyroid Disease: No Ulcer: No ?: Not Menopausal: Yes : 2 Para: 2 Past Surgical History Abdominal Surgery: No AICD: No Appendectomy: No Arteriovenous Shunt: No Cholecystectomy: No Ear Surgery: No Endocrine Surgery: No Eye Surgery: Yes (cataracts removed giuseppe) Genitourinary Surgery: No Gynecologic Surgery: No Insulin Pump: No Joint Replacement: No Neurologic Surgery: No Oral Surgery: Yes (gingivitis) Pacemaker: No Thoracic Surgery: No Tonsillectomy: Yes Other Surgery: Yes (kyphoplasty) Social History Alcohol Use: Yes (OCCASIONALLY) Tobacco Use: No Substance Use: No Allergies-Medications (Allergen,Severity, Reaction): Coded Allergies: doxycycline (Unverified Allergy, Intermediate, UNKNOWN, 07/13/17) minocycline (Unverified Allergy, Intermediate, UNKNOWN, 07/13/17) tigecycline (Unverified Allergy, Intermediate, UNKNOWN, 07/13/17) pantoprazole (Unverified Allergy, Unknown, 07/13/17) codeine (Unverified Adverse Reaction, Intermediate, UPSET STOMACH, 07/13/17 ) prednisone (Unverified Adverse Reaction, Mild, Nausea/Vomiting, 07/13/17) amiodarone (Verified Adverse Reaction, Unknown, 07/13/17) amlodipine (Verified Adverse Reaction, Unknown, 07/13/17) Reported Meds & Prescriptions Reported Meds & Active Scripts Active Gnp Senna Plus 8.6-50 mg (Sennosides-Docusate Sodium) 8.6 Mg-50 Mg Tab 1 Tab PO BID Hydrocodone-Acetamin 5-325 mg (Hydrocodone/Acetaminophen) 5 Mg-325 Mg Tablet 1 Tab PO Q4-6H PRN Walker with Front Wheels (Device) 1 Mis Mis Ea .XX DIRECTED Reported Lisinopril 10 Mg Tab 10 Mg PO DAILY Prolia Inj (Denosumab) 60 Mg/Ml Inj 60 Mg SQ Q180D Vitamin D3 (Cholecalciferol) 1,000 Unit Tab 1,000 Units PO DAILY Levothyroxine (Levothyroxine Sodium) 88 Mcg Tab 88 Mcg PO DAILY Ranitidine (Ranitidine HCl) 150 Mg Tab 150 Mg PO BID K-Tab (Potassium Chloride) 20 Meq Tab 20 Meq PO DAILY Lasix (Furosemide) 40 Mg Tab 40 Mg PO DAILY Eliquis (Apixaban) 5 Mg Tab 5 Mg PO BID Welchol (Colesevelam HCl) 625 Mg Tab 625 Mg PO TID Review of Systems Except as stated in HPI: all other systems reviewed are Neg Physical Exam Narrative GENERAL: 86yo F in mild distress. SKIN: Focused skin assessment warm/dry. HEAD: Atraumatic. Normocephalic. EYES: Pupils equal and round. No scleral icterus. No injection or drainage. ENT: No nasal bleeding or discharge. Mucous membranes pink and moist. NECK: Trachea midline. No JVD. CARDIOVASCULAR: Regular rate and rhythm. No murmur appreciated. RESPIRATORY: No accessory muscle use. Clear to auscultation. Breath sounds equal bilaterally. GASTROINTESTINAL: Abdomen soft, +TTP epigastric > periumbilical abdomen. No rebound tenderness or guarding. RECTAL: Small brown stool, no large stool in rectum palpated. Negative hemaprompt. BACK: +TTP T12 where she always hurts. No erythema or mass. MUSCULOSKELETAL: No obvious deformities. No clubbing. No cyanosis. No edema. NEUROLOGICAL: Awake and alert. No obvious cranial nerve deficits. Motor grossly within normal limits in all extremities. Sensation intact. Normal speech. PSYCHIATRIC: Appropriate mood and affect; insight and judgment normal. Data Data Last Documented VS Vital Signs Date Time Temp Pulse Resp B/P (MAP) Pulse Ox O2 Delivery O2 Flow Rate FiO2 07/13/17 15:49 91 16 141/65 (90) 100 07/13/17 09:29 98.3 Orders Orders Electrocardiogram (07/13/17 09:58) Basic Metabolic Panel (Bmp) (07/13/17 09:58) Complete Blood Count With Diff (07/13/17 09:58) Prothrombin Time / Inr (Pt) (07/13/17 09:58) Act Partial Throm Time (Ptt) (07/13/17 09:58) Troponin I (07/13/17 09:58) Cta Thor Abd Aorta W Iv C W3d (07/13/17 09:58) Hydralazine Inj (Apresoline Inj) (07/13/17 10:30) Urinalysis - C+S If Indicated (07/13/17 10:28) Lipase (07/13/17 10:28) Morphine Inj (Morphine Inj) (07/13/17 11:15) Vascular Access Team Consult/P PRN (07/13/17 11:31) Vascular Poc Ultrasound (07/13/17 ) Iohexol 350 Inj (Omnipaque 350 Inj) (07/13/17 14:56) Morphine Inj (Morphine Inj) (07/13/17 16:00) Labs Laboratory Tests Test 07/13/17 10:07 07/13/17 10:34 White Blood Count 10.2 TH/MM3 Red Blood Count 4.20 MIL/MM3 Hemoglobin 13.5 GM/DL Hematocrit 37.6 % Mean Corpuscular Volume 89.6 FL Mean Corpuscular Hemoglobin 32.2 PG Mean Corpuscular Hemoglobin Concent 35.9 % Red Cell Distribution Width 15.6 % Platelet Count 346 TH/MM3 Mean Platelet Volume 7.9 FL Neutrophils (%) (Auto) 70.9 % Lymphocytes (%) (Auto) 17.3 % Monocytes (%) (Auto) 9.7 % Eosinophils (%) (Auto) 1.0 % Basophils (%) (Auto) 1.1 % Neutrophils # (Auto) 7.3 TH/MM3 Lymphocytes # (Auto) 1.8 TH/MM3 Monocytes # (Auto) 1.0 TH/MM3 Eosinophils # (Auto) 0.1 TH/MM3 Basophils # (Auto) 0.1 TH/MM3 CBC Comment DIFF FINAL Differential Comment Prothrombin Time 10.1 SEC Prothromb Time International Ratio 1.0 RATIO Activated Partial Thromboplast Time 31.9 SEC Blood Urea Nitrogen 14 MG/DL Creatinine 1.03 MG/DL Random Glucose 91 MG/DL Calcium Level 9.4 MG/DL Sodium Level 133 MEQ/L Potassium Level 3.8 MEQ/L Chloride Level 99 MEQ/L Carbon Dioxide Level 28.0 MEQ/L Anion Gap 6 MEQ/L Estimat Glomerular Filtration Rate 51 ML/MIN Troponin I LESS THAN 0.02 NG/ML Lipase 115 U/L Urine Color LIGHT-YELLOW Urine Turbidity CLEAR Urine pH 7.0 Urine Specific [place] 1.005 Urine Protein NEG mg/dL Urine Glucose (UA) NEG mg/dL Urine Ketones NEG mg/dL Urine Occult Blood NEG Urine Nitrite NEG Urine Bilirubin NEG Urine Urobilinogen LESS THAN 2.0 MG/DL Urine Leukocyte Esterase NEG Urine RBC LESS THAN 1 /hpf Urine Squamous Epithelial Cells <1 /hpf Urine Mucus FEW /lpf Microscopic Urinalysis Comment CULT NOT INDICATED MDM Medical Decision Making Medical Screen Exam Complete: Yes Emergency Medical Condition: Yes Interpretation(s) EKG: NSR 71bpm. Normal axis. 1st AV block. LVH. TWI I, aVL, V2-V6 consistent with LVH strain. Differential Diagnosis Constipation vs. gastritis vs. colitis vs. chronic back pain vs. anxiety vs. dissection Narrative Course 86yo anxious appearing female here with c/o abdominal pain, back pain and constipation. Pt has chronic back pain from compression fracture and denies any new falls. However, pt has thoracic aneurysm and is hypertensive so will do CTA to r/o dissection. Labs reviewed, no leukocytosis. H/H normal. Lipase normal. Troponin negative. UA negative. Pt given morphine 2mg IV for pain. Pt's IV infiltrated with a small amount of contrast so it was removed and vascular access was consulted to place another line. CTA showed no dissection. severe chronic compression fracture of T12. Probable stool along posterior wall of the rectal vault near the junction of the sigmoid colon. However, cannot exclude a sessile mass. Pt has follow up with GI Dr. Mejia and colorectal Dr. Wheeler and I informed pt of this and she will follow up. Gave pt a copy of her CT results. Pt given morphine which helped with pain. Pt just needed pain medication today and has hydrocodone at home. No focal neurologic deficits. Return precautions given. Diagnosis Primary Impression: Chronic pain Qualified Codes: G89.29 - Other chronic pain Patient Instructions: General Instructions Departure Forms: Tests/Procedures Additional Instructions: There is probably stool in posterior wall of rectal vault near junction of sigmoid colon but cannot exclude a mass so please follow up with Dr. Wheeler regarding this. Return to the ED if symptoms worsen. Med/Other Pt SpecificInfo: No Change to Meds Disposition: 01 DISCHARGE HOME Condition: Stable Jyoti Kirkpatrick Jul 13, 2017 10:17
[2017-07-13 10:27] VITALS: BP 173/75
[2017-07-13 10:30] LABS: PROTHROMBIN TIME - PATIENT 10.1 SEC (9.8-11.6)
[2017-07-13] MEDS ORDERED: hydrALAZINE HCL 20 MG/ML VIAL IV PUSH ONE (10:30)
[2017-07-13 10:46] LABS: BLOOD UREA NITROGEN 14 MG/DL (7-18); CALCIUM 9.4 MG/DL (8.5-10.1); CHLORIDE 99 MEQ/L (98-107); CREATININE 1.03 MG/DL (0.50-1.00); GLOMERULAR FILTRATION RATE 51 ML/MIN (>89); GLUCOSE,RANDOM 91 MG/DL (74-106); SODIUM (NA) 133 MEQ/L (136-145)
[2017-07-13 10:51] VITALS: BP 157/67; PULSE 81; RESP 17; O2SAT 100
[2017-07-13 11:01] LABS: TROPONIN I LESS THAN 0.02 NG/ML (0.02-0.05)
[2017-07-13 11:02] LABS: BILIRUBIN, URINE NEG (NEG); BLOOD, URINE NEG (NEG); GLUCOSE,URINE NEG (NEG); KETONE, URINE NEG (NEG); MUCUS URINE FEW /lpf (OCC); NITRITE,URINE NEG (NEG); SQUAMOUS EPITHELIAL CELL URINE <1 /hpf (0-5); URINE COLOR LIGHT-YELLOW (YELLW/STRAW); URINE LEUKOCYTE ESTERASE NEG (NEG)
[2017-07-13] MEDS ORDERED: MORPHINE SULFATE 4 MG/ML INJ IV PUSH ONE (11:15)
[2017-07-13 13:01] VITALS: BP 143/65; PULSE 90; RESP 18; O2SAT 100
[2017-07-13] MEDS ORDERED: IOHEXOL 350 MG/ML 10 ML VIAL (for RAD DIAG) IVCONTRAST ONE (14:56)
--- NOTE | 2017-07-13 15:27 | RADRPT ---
EXAM DATE/TIME: 07/13/2017 14:35 [facility] COMPARISON: No previous studies available for comparison. INDICATIONS : Epigastric pain today. IV CONTRAST: 75 cc Omnipaque 350 (iohexol) IV RADIATION DOSE: 6.21 CTDIvol (mGy) ; Patient positioning MEDICAL HISTORY : Gastroesophageal reflux disease. Thoracic aneurysm, colitis, rectal mass, hypertension SURGICAL HISTORY : Kyphoplasty. ENCOUNTER: Initial ACUITY: 1 day PAIN SCALE: 7/10 LOCATION: epigastric abdomen TECHNIQUE: Volumetric scanning was performed using a multi-row detector CT scanner. The data was post processed with a variety of visualization algorithms including full volume maximum intensity projection, multi -planar sliding thin slab reformation, curved planar reformation, and surface rendering techniques. Using automated exposure control and adjustment of the mA and/or kV according to patient size, radiat ion dose was kept as low as reasonably achievable to obtain optimal diagnostic quality images. DICOM format image data is available electronically for review and comparison. FINDINGS: LUNGS: There is no consolidation or pneumothorax. No concerning pulmonary nodule is visualized. No pleural fluid is present. 8 mm cyst in the upper lobe on the right. There some atelectatic changes adjacent to the tortuous thoracic aorta in the left lower lung. MEDIASTINUM: No abnormally enlarged lymph nodes by CT criteria. No axillary or hilar abnormalities are identified. ABDOMEN: The liver and spleen are free of focal defects. The gallbladder and pancreas demonstrate no abnormali ty. The adrenal glands are normal. The kidneys demonstrate no evidence of solid renal mass or hydrone phrosis. No free fluid or abdominal masses are identified. No para-aortic adenopathy is seen. Old kyp hoplasty at L2. Severe compression fracture at T12 PELVIS: No evidence of free fluid or pelvic mass. No abnormally enlarged inguinal or retroperitoneal lymph no orlin are present. A 3 cm diverticulum off the right side of the urinary bladder. Soft tissue prominenc e along the posterior wall of the rectal vault the junction of the sigmoid colon probably represents stool although a sessile mass cannot be completely excluded.. THORACIC AORTA: Calcification of the aortic root. Ascending thoracic aorta is aneurysmal at 4.4 cm. Ectasia of the di stal thoracic aorta 2.9 cm. ABDOMINAL AORTA: The aorta is normal in caliber without aneurysm or dissection. The renal arteries are patent bilater ally. The proximal celiac and superior mesenteric arteries are patent and normal in diameter. PELVIC VESSELS: The internal iliac and external iliac vessels are patent without aneurysm or stenosis. CONCLUSION: 1. Ascending thoracic aorta is aneurysmal 4.4 cm. Mild ectasia of the distal thoracic aorta 2.9 cm. A bdominal aorta is normal in caliber. No dissection. 2. Old kyphoplasty at L2. Severe chronic compression fracture of T12. 3. 3 cm diverticulum off the right side of the urinary bladder. 4. Probable stool along the posterior wall of the rectal vault near the junction of the sigmoid colon . However, cannot exclude a sessile mass. Sigmoidoscopy could be performed for further characterizati on if clinically warranted. Hernan Sanchez MD on July 13, 2017 at 15:19 Board Certified Radiologist. This report was verified electronically.
[2017-07-13 15:49] VITALS: BP 141/65; PULSE 91; RESP 16; O2SAT 100
[2017-07-13] MEDS ORDERED: MORPHINE SULFATE 2 MG/ML SYRINGE IV PUSH ONE (16:00)
--- NOTE | 2017-07-13 18:17 | EKG ---
Date Performed: 07/13/2017 Time Performed: 10:06:33 PTAGE: 86 years EKG: Sinus rhythm WITH FIRST DEGREE AV BLOCK POSSIBLE LEFT ATRIAL ENLARGEMENT LEFT VENTRICULAR HYPERTROPHY AND ST-T CH EMMY CANNOT EXCLUDE ISCHEMIA Compared to previous tracing, ST-T wave changes are similar ABNORMAL ECG PREVIOUS TRACING : 06/15/2017 13.43 DOCTOR: Escobar Moreno Interpretating Date/Time 07/13/2017 18:15:50
== END 2017-07-13 17:16 | disposition home or self-care (01) ==
LOC: NEPC 09:26
DX: G89.29 Other chronic pain (principal); M54.9 Dorsalgia, unspecified; I71.2 Thoracic aortic aneurysm, without rupture; I10 Essential (primary) hypertension; I44.0 Atrioventricular block, first degree; I51.7 Cardiomegaly; I48.91 Unspecified atrial fibrillation; I25.10 Atherosclerotic heart disease of native coronary artery without angina pectoris; M79.7 Fibromyalgia; Z88.5 Allergy status to narcotic agent; Z88.8 Allergy status to other drugs, medicaments and biological substances; Z79.01 Long term (current) use of anticoagulants; Z79.899 Other long term (current) drug therapy
CPT/HCPCS: 71275; 74174; 80048; 81001; 83690; 84484; 85025; 85610; 85730; 93005; 96374; 96375; 96376; 99285; J0360; J2270; Q9967

== ENCOUNTER 2017-07-20 05:52 | Emergency (ER) | payer MEDICARE, OTHER ==
[~2017-07-20] VITALS: Ht 154.9 cm; Wt 56.4 kg
[~2017-07-20 05:52] MED LIST changes: -BACL10TA PO
[2017-07-20 05:59] VITALS: BP 167/72; PULSE 77; RESP 18; TEMP 97.4; O2SAT 97
[2017-07-20 06:04] VITALS: BP 167/72; PULSE 77; RESP 18; TEMP 97.4; O2SAT 98
[2017-07-20] MEDS ORDERED: BACL10TA PO (06:17)
[2017-07-20] MEDS ORDERED: TRAM50TA PO (06:17)
--- NOTE | 2017-07-20 06:36 | PD ---
HPI Chief Complaint: Abdominal Pain Time Seen by Provider: 06:12 Travel History International Travel<30 days: No Contact w/Intl Traveler<30days: No Traveled to known affect area: No History of Present Illness HPI The patient is an 86-year-old female that has had left lower abdominal pain for over 6 months. She has had several CAT scans in the last few months which show only a 4.1 x 3.3 cm abdominal aortic aneurysm. The aneurysm is at the aortic hiatus. She does have known wedge compression fracture at T12 and previous kyphoplasty has been performed at L2. She denies any fever, nausea or vomiting. She saw Dr. Wheeler 2 days ago and, according to the patient, he did not find anything. Dr. Wheeler recommended she follow-up with Dr. Barroso regarding her compression fracture. The patient states that Dr. Wheeler felt some of this pain is likely to be musculoskeletal pain. The patient's pain is occasionally sharp and occasionally dull. Right now she says it is a 5 or 6/10 since she is lying down. When she stands up she says it will be an 8 or 9/10. PFSH Past Medical History Hx Anticoagulant Therapy: Yes (ELIQUIS) AAA: Yes Arthritis: No Asthma: No Atrial Fibrillation: Yes (flutter RVR) Blood Disorders: No Anxiety: No Depression: No Heart Rhythm Problems: No Cancer: No Cardiovascular Problems: Yes (aneurisms, afib hx and on eliquis) High Cholesterol: No Chemotherapy: No Chest Pain: No Congestive Heart Failure: No COPD: No Cerebrovascular Accident: No Coronary Artery Disease: Yes Diabetes: No Diminished Hearing: No Endocrine: No Fibromyalgia: Yes Gastrointestinal Disorders: Yes (COLITIS, RECTAL MASS) GERD: Yes Glaucoma: No Genitourinary: No Headaches: Yes Hepatitis: No Hiatal Hernia: No Heparin Induced Thrombocytopen: No Hypertension: Yes Immune Disorder: No Implanted Vascular Access Dvce: No Kidney Stones: No Musculoskeletal: Yes (fibromyalgia, back pain, L2 compression) Neurologic: Yes (back pain, L2 compression currently) Psychiatric: No Reproductive: No Respiratory: No Immunizations Current: Yes Migraines: No Myocardial Infarction: No Radiation Therapy: No Renal Failure: No Seizures: No Sickle Cell Disease: No Sleep Apnea: No Thyroid Disease: No Ulcer: No ?: Not Menopausal: Yes : 2 Para: 2 Past Surgical History Abdominal Surgery: No AICD: No Appendectomy: No Arteriovenous Shunt: No Cholecystectomy: No Ear Surgery: No Endocrine Surgery: No Eye Surgery: Yes (cataracts removed giuseppe) Genitourinary Surgery: No Gynecologic Surgery: No Insulin Pump: No Joint Replacement: No Neurologic Surgery: No Oral Surgery: Yes (gingivitis) Pacemaker: No Thoracic Surgery: No Tonsillectomy: Yes Other Surgery: Yes (kyphoplasty) Social History Alcohol Use: Yes (OCCASIONALLY) Tobacco Use: No Substance Use: No Allergies-Medications (Allergen,Severity, Reaction): Coded Allergies: doxycycline (Unverified Allergy, Intermediate, UNKNOWN, 07/13/17) minocycline (Unverified Allergy, Intermediate, UNKNOWN, 07/13/17) tigecycline (Unverified Allergy, Intermediate, UNKNOWN, 07/13/17) pantoprazole (Unverified Allergy, Unknown, 07/13/17) codeine (Unverified Adverse Reaction, Intermediate, UPSET STOMACH, 07/13/17 ) prednisone (Unverified Adverse Reaction, Mild, Nausea/Vomiting, 07/13/17) amiodarone (Verified Adverse Reaction, Unknown, 07/13/17) amlodipine (Verified Adverse Reaction, Unknown, 07/13/17) Reported Meds & Prescriptions Reported Meds & Active Scripts Active Gnp Senna Plus 8.6-50 mg (Sennosides-Docusate Sodium) 8.6 Mg-50 Mg Tab 1 Tab PO BID Hydrocodone-Acetamin 5-325 mg (Hydrocodone/Acetaminophen) 5 Mg-325 Mg Tablet 1 Tab PO Q4-6H PRN Walker with Front Wheels (Device) 1 Mis Mis Ea .XX DIRECTED Reported Baclofen 10 Mg Tab 10 Mg PO TID Tramadol (Tramadol HCl) 50 Mg Tab 50 Mg PO Q6H PRN Lisinopril 10 Mg Tab 10 Mg PO DAILY Prolia Inj (Denosumab) 60 Mg/Ml Inj 60 Mg SQ Q180D Vitamin D3 (Cholecalciferol) 1,000 Unit Tab 1,000 Units PO DAILY Levothyroxine (Levothyroxine Sodium) 88 Mcg Tab 88 Mcg PO DAILY Ranitidine (Ranitidine HCl) 150 Mg Tab 150 Mg PO BID K-Tab (Potassium Chloride) 20 Meq Tab 20 Meq PO DAILY Lasix (Furosemide) 40 Mg Tab 40 Mg PO DAILY Eliquis (Apixaban) 5 Mg Tab 5 Mg PO BID Welchol (Colesevelam HCl) 625 Mg Tab 625 Mg PO TID Review of Systems Except as stated in HPI: all other systems reviewed are Neg Physical Exam Narrative GENERAL: Well-nourished, well-developed patient who appears extremely anxious and minimal apparent distress with her abdominal discomfort. Her vital signs show blood pressure 167/72 but are otherwise normal. SKIN: Focused skin assessment warm/dry. HEAD: Normocephalic. EYES: No scleral icterus. No injection or drainage. NECK: Supple, trachea midline. No JVD or lymphadenopathy. CARDIOVASCULAR: Regular rate and rhythm without murmurs, gallops, or rubs. RESPIRATORY: Breath sounds equal bilaterally. No accessory muscle use. GASTROINTESTINAL: Abdomen soft, with minimal tenderness to direct palpation in the left lower quadrant, nondistended. No guarding or rebound is present. MUSCULOSKELETAL: No cyanosis, or edema. BACK: Nontender without obvious deformity. No CVA tenderness. RECTAL EXAM: No masses or tenderness, stool is brown and guaiac negative. There are no fecal impactions present, the rectum is remarkably clean. Data Data Last Documented VS Vital Signs Date Time Temp Pulse Resp B/P (MAP) Pulse Ox O2 Delivery O2 Flow Rate FiO2 07/20/17 06:04 97.4 77 18 167/72 (103) 98 MDM Medical Decision Making Medical Screen Exam Complete: Yes Emergency Medical Condition: Yes Medical Record Reviewed: Yes Differential Diagnosis Anxiety, leaking abdominal aortic aneurysm-unlikely, diverticulitis, musculoskeletal pain, chronic abdominal pain etiology undetermined Narrative Course The patient appears to have chronic abdominal pain etiology undetermined. She does appear anxious. She has been worked up extensively by multiple doctors and she has multiple visits to the emergency department for CAT scans. Nothing acute has been found. The aneurysm appears to be stable. She does have a compression fracture at T12 which is followed by Dr. Barroso and she should continue to follow with Dr. Barroso. She has plenty of Toradol for the pain. I am reluctant to give her anything stronger because she would likely get constipated. Diagnosis Primary Impression: Chronic abdominal pain Additional Impression: Anxiety disorder, unspecified Additional Instructions: As Dr. Wheeler suggested, follow-up with Dr. Barroso regarding your compression fracture. At this time there appears to be nothing that needs to be done in the emergency department about her abdominal pain. Continue to take the tramadol. Disposition: 01 DISCHARGE HOME Condition: Stable Rasheed Cruz MD Jul 20, 2017 06:36
== END 2017-07-20 06:59 | disposition home or self-care (01) ==
LOC: PHED 05:52
DX: R10.9 Unspecified abdominal pain (principal); G89.29 Other chronic pain; F41.9 Anxiety disorder, unspecified; I71.4 Abdominal aortic aneurysm, without rupture; I48.91 Unspecified atrial fibrillation; I25.10 Atherosclerotic heart disease of native coronary artery without angina pectoris; I10 Essential (primary) hypertension; K21.9 Gastro-esophageal reflux disease without esophagitis; M79.7 Fibromyalgia
CPT/HCPCS: 99282

== ENCOUNTER 2017-08-06 15:00 | Inpatient (IN) | payer MEDICARE, OTHER ==
[2017-08-06] VITALS (17 sets, daily range): BP systolic 77–134; BP diastolic 41–85; PULSE 85–159; RESP 16–21; TEMP 97.4–98.5; O2SAT 95–100
[~2017-08-06] VITALS: Ht 154.9 cm; Wt 61.5 kg
[~2017-08-06 15:00] MED LIST changes: +BACL10TA PO; +TRAM50TA PO
[2017-08-06] MEDS ORDERED: METOPROLOL TARTRATE 5 MG/5 ML VIAL IV PUSH ONE (15:45)
[2017-08-06 16:13] LABS: AUTOMATED NEUTROPHIL # 6.7 TH/MM3 (1.8-7.7); BASOPHIL # 0.2 TH/MM3 (0-0.2); BASOPHIL % 2.5 % (0.0-2.0); EOSINOPHIL % 0.5 % (0.0-4.0); HEMATOCRIT 34.7 % (35.0-46.0); HEMOGLOBIN 11.3 GM/DL (11.6-15.3); LYMPH % 16.1 % (9.0-44.0); LYMPHOCYTE # 1.4 TH/MM3 (1.0-4.8); MEAN CELL VOLUME 91.6 FL (80.0-100.0); MEAN CORPUSCULAR HEMOGLOBIN 29.7 PG (27.0-34.0); MEAN CORPUSCULAR HGB CONC 32.5 % (32.0-36.0); MEAN PLATELET VOLUME 8.5 FL (7.0-11.0); MONO % 7.4 % (0.0-8.0); MONOCYTE # 0.7 TH/MM3 (0-0.9); NEUT % 73.5 % (16.0-70.0); PLATELET COUNT 309 TH/MM3 (150-450); RED CELL DISTRIBUTION WIDTH 14.8 % (11.6-17.2)
--- NOTE | 2017-08-06 16:15 | PD ---
HPI Chief Complaint: Cardiac Complaint Time Seen by Provider: 15:19 Travel History International Travel<30 days: No Contact w/Intl Traveler<30days: No Traveled to known affect area: No History of Present Illness HPI This 86-year-old female was told to come in because of fast heart rate. She has a history of atrial fibrillation. She has had 2 ablations done in the past. She had cardioversion done last summer. She has had a fast heart rate for several days at least. She is on Eliquis. She is not on any medication for rate control. He has been having a hard fast heart rate for several days at least. She denies any chest pain. She had an EKG in May of this year which showed sinus rhythm. She has been on Eliquis. She is not on any medication for rate control. She is on lisinopril for high blood pressure. She does have chronic pain and is on tramadol. Is also on levothyroxine. Patient does have a history of chronic back pain and is requesting something for pain. PFSH Past Medical History Hx Anticoagulant Therapy: Yes (ELIQUIS) AAA: Yes (monitoring) Arthritis: No Asthma: No Atrial Fibrillation: Yes (flutter RVR) Blood Disorders: No Anxiety: Yes Depression: Yes Heart Rhythm Problems: Yes Cancer: No Cardiovascular Problems: Yes (aneurisms, afib hx and on eliquis) High Cholesterol: Yes Chemotherapy: No Chest Pain: No Congestive Heart Failure: Yes COPD: No Cerebrovascular Accident: No Coronary Artery Disease: Yes Diabetes: No Diminished Hearing: No Endocrine: No Fibromyalgia: Yes Gastrointestinal Disorders: Yes (COLITIS, RECTAL MASS) GERD: Yes Glaucoma: No Genitourinary: No Headaches: Yes Hepatitis: No Hiatal Hernia: No Heparin Induced Thrombocytopen: No Hypertension: Yes Immune Disorder: No Implanted Vascular Access Dvce: No Kidney Stones: No Medical other: Yes (FIBROMYALGIA) Musculoskeletal: Yes (fibromyalgia, back pain, L2 compression) Neurologic: Yes (chronic back pain, L2 compression currently) Psychiatric: No Reproductive: No Respiratory: No Immunizations Current: Yes Migraines: No Myocardial Infarction: No Radiation Therapy: No Renal Failure: No Seizures: No Sickle Cell Disease: No Sleep Apnea: No Thyroid Disease: No Ulcer: No Tetanus Vaccination: Unknown Influenza Vaccination: Yes ?: Not Menopausal: Yes : 2 Para: 2 Past Surgical History Abdominal Surgery: No AICD: No Appendectomy: No Arteriovenous Shunt: No Cholecystectomy: No Ear Surgery: No Endocrine Surgery: No Eye Surgery: Yes (cataracts removed giuseppe) Genitourinary Surgery: No Gynecologic Surgery: No Insulin Pump: No Joint Replacement: No Neurologic Surgery: No Oral Surgery: Yes (gingivitis) Pacemaker: No Thoracic Surgery: No Tonsillectomy: Yes Other Surgery: Yes (kyphoplasty) Social History Alcohol Use: Yes (OCCASIONALLY) Tobacco Use: No Substance Use: No Allergies-Medications (Allergen,Severity, Reaction): Coded Allergies: doxycycline (Unverified Allergy, Intermediate, UNKNOWN, 08/06/17) minocycline (Unverified Allergy, Intermediate, UNKNOWN, 08/06/17) tigecycline (Unverified Allergy, Intermediate, UNKNOWN, 08/06/17) pantoprazole (Unverified Allergy, Unknown, 08/06/17) codeine (Unverified Adverse Reaction, Intermediate, UPSET STOMACH, 08/06/17 ) prednisone (Unverified Adverse Reaction, Mild, Nausea/Vomiting, 08/06/17) amiodarone (Verified Adverse Reaction, Unknown, 08/06/17) amlodipine (Verified Adverse Reaction, Unknown, 08/06/17) Reported Meds & Prescriptions Reported Meds & Active Scripts Active Gnp Senna Plus 8.6-50 mg (Sennosides-Docusate Sodium) 8.6 Mg-50 Mg Tab 1 Tab PO BID Reported Baclofen 10 Mg Tab 10 Mg PO TID Tramadol (Tramadol HCl) 50 Mg Tab 50 Mg PO Q6H PRN Lisinopril 10 Mg Tab 10 Mg PO DAILY Prolia Inj (Denosumab) 60 Mg/Ml Inj 60 Mg SQ Q180D Vitamin D3 (Cholecalciferol) 1,000 Unit Tab 1,000 Units PO DAILY Levothyroxine (Levothyroxine Sodium) 88 Mcg Tab 88 Mcg PO DAILY Ranitidine (Ranitidine HCl) 150 Mg Tab 150 Mg PO BID K-Tab (Potassium Chloride) 20 Meq Tab 20 Meq PO DAILY Lasix (Furosemide) 40 Mg Tab 40 Mg PO DAILY Eliquis (Apixaban) 5 Mg Tab 5 Mg PO BID Welchol (Colesevelam HCl) 625 Mg Tab 625 Mg PO TID Review of Systems General / Constitutional: No: Fever, Chills Eyes: No: Diploplia, Blurred Vision HENT: No: Headaches Cardiovascular: Positive: Palpitations, No: Chest Pain or Discomfort Respiratory: Positive: Shortness of Breath Gastrointestinal: No: Nausea, Vomiting Genitourinary: No: Urgency, Frequency Musculoskeletal: Positive: Pain, No: Myalgias, Arthralgias Skin: No Rash, No Itching Hematologic/Lymphatic: No: Easy Bruising Physical Exam Narrative GENERAL: Frail elderly female SKIN: Focused skin assessment warm/dry. HEAD: Atraumatic. Normocephalic. EYES: Pupils equal and round. No scleral icterus. No injection or drainage. ENT: No nasal bleeding or discharge. Mucous membranes pink and moist. NECK: Trachea midline. No JVD. CARDIOVASCULAR: Rapid regular rate and rhythm. No murmur appreciated. RESPIRATORY: No accessory muscle use. Clear to auscultation. Breath sounds equal bilaterally. GASTROINTESTINAL: Abdomen soft, non-tender, nondistended. Hepatic and splenic margins not palpable. MUSCULOSKELETAL: No obvious deformities. No clubbing. No cyanosis. No edema. NEUROLOGICAL: Awake and alert. No obvious cranial nerve deficits. Motor grossly within normal limits. Normal speech. PSYCHIATRIC: Appropriate mood and affect; insight and judgment normal. Data Data Last Documented VS Vital Signs Date Time Temp Pulse Resp B/P (MAP) Pulse Ox O2 Delivery O2 Flow Rate FiO2 08/06/17 17:15 131 16 98 Room Air 08/06/17 17:10 118/63 (81) 08/06/17 15:03 97.4 Orders Orders Electrocardiogram (08/06/17 15:29) Complete Blood Count With Diff (08/06/17 15:29) Comprehensive Metabolic Panel (08/06/17 15:29) Troponin I (08/06/17 15:29) B-Type Natriuretic Peptide (08/06/17 15:29) Magnesium (Mg) (08/06/17 15:29) Thyroid Stimulating Hormone (08/06/17 15:29) Metoprolol Tartrate Inj (Lopressor Inj) (08/06/17 15:45) Chest, Single Ap (08/06/17 16:10) Sodium Chlor 0.9% 250 Ml Inj (Ns 250 Ml (08/06/17 16:30) Sodium Chlor 0.9% 1000 Ml Inj (Ns 1000 M (08/06/17 16:30) Ondansetron Inj (Zofran Inj) (08/06/17 17:15) Morphine Inj (Morphine Inj) (08/06/17 17:15) Patient Transfer (08/06/17 ) Admit Order (Ed Use Only) (08/06/17 17:25) Labs Laboratory Tests Test 08/06/17 16:05 White Blood Count 9.0 TH/MM3 Red Blood Count 3.80 MIL/MM3 Hemoglobin 11.3 GM/DL Hematocrit 34.7 % Mean Corpuscular Volume 91.6 FL Mean Corpuscular Hemoglobin 29.7 PG Mean Corpuscular Hemoglobin Concent 32.5 % Red Cell Distribution Width 14.8 % Platelet Count 309 TH/MM3 Mean Platelet Volume 8.5 FL Neutrophils (%) (Auto) 73.5 % Lymphocytes (%) (Auto) 16.1 % Monocytes (%) (Auto) 7.4 % Eosinophils (%) (Auto) 0.5 % Basophils (%) (Auto) 2.5 % Neutrophils # (Auto) 6.7 TH/MM3 Lymphocytes # (Auto) 1.4 TH/MM3 Monocytes # (Auto) 0.7 TH/MM3 Eosinophils # (Auto) 0.0 TH/MM3 Basophils # (Auto) 0.2 TH/MM3 CBC Comment DIFF FINAL Differential Comment Blood Urea Nitrogen 31 MG/DL Creatinine 1.40 MG/DL Random Glucose 109 MG/DL Total Protein 6.5 GM/DL Albumin 3.2 GM/DL Calcium Level 9.2 MG/DL Magnesium Level 2.5 MG/DL Alkaline Phosphatase 80 U/L Aspartate Amino Transf (AST/SGOT) 32 U/L Alanine Aminotransferase (ALT/SGPT) 42 U/L Total Bilirubin 0.3 MG/DL Sodium Level 131 MEQ/L Potassium Level 4.6 MEQ/L Chloride Level 96 MEQ/L Carbon Dioxide Level 27.0 MEQ/L Anion Gap 8 MEQ/L Estimat Glomerular Filtration Rate 36 ML/MIN Troponin I 0.03 NG/ML B-Type Natriuretic Peptide 1077 PG/ML Thyroid Stimulating Hormone 3rd Gen 11.300 uIU/ML [facility] Medical Decision Making Medical Screen Exam Complete: Yes Emergency Medical Condition: Yes Medical Record Reviewed: Yes Differential Diagnosis Differential includes atrial fibrillation, atrial flutter, CHF, Narrative Course EKG shows a narrow complex tachycardia at a rate of 150 there appear to be flutter waves. BNP is elevated at 1000 and her troponin is 0.03. She was given 5 mg of intravenous Lopressor this did not affect her heart rate she did have some decline in her blood pressure. She has been given small amount of fluid I have discussed the case with Dr. Moreno who feels she should go to the [facility] for evaluation by Dr. DOTY who has done 2 ablations on her in the past. Patient has been accepted by Dr. Coyle to the intensive care unit. She has had some low blood pressures and has congestive failure. Diagnosis Primary Impression: Atrial flutter with rapid ventricular response Admitting Information Admitting Physician Requests: Admit Wade Diaz MD August 06, 2017 16:15
[2017-08-06 16:19] LABS: CHLORIDE 96 MEQ/L (98-107); SODIUM (NA) 131 MEQ/L (136-145)
[2017-08-06 16:22] LABS: CALCIUM 9.2 MG/DL (8.5-10.1)
[2017-08-06 16:23] LABS: ALBUMIN 3.2 GM/DL (3.4-5.0); BLOOD UREA NITROGEN 31 MG/DL (7-18); GLUCOSE,RANDOM 109 MG/DL (74-106); MAGNESIUM 2.5 MG/DL (1.5-2.5)
[2017-08-06 16:26] LABS: ALT (GPT) 42 U/L (10-53); AST (GOT) 32 U/L (15-37); GLOMERULAR FILTRATION RATE 36 ML/MIN (>89)
[2017-08-06 16:27] LABS: TOTAL BILIRUBIN ADULT 0.3 MG/DL (0.2-1.0)
[2017-08-06 16:28] LABS: TOTAL PROTEIN 6.5 GM/DL (6.4-8.2)
[2017-08-06 16:29] LABS: ALKALINE PHOSPHATASE 80 U/L (45-117)
[2017-08-06] MEDS ORDERED: SODIUM CHLOR 0.9% 250 ML INJ 250 ML IV ONE (16:30)
[2017-08-06 16:31] LABS: TROPONIN I 0.03 NG/ML (0.02-0.05)
[2017-08-06] MEDS: SODIUM CHLOR 0.9% 1000 ML INJ 1,000 ML IV SCH (16:32)
--- NOTE | 2017-08-06 16:57 | RADRPT ---
EXAM DATE/TIME: 08/06/2017 16:35 [facility] COMPARISON: CHEST SINGLE AP, February 17, 2017, 18:50. INDICATIONS : Short of breath. High heart rate. MEDICAL HISTORY : Gastroesophageal reflux disease. Thoracic aneurysm. colitis. Rectal mass. Hypertension. Atrial fibril lation. Coronary artery disease. SURGICAL HISTORY : Kyphoplasty. ENCOUNTER: Initial ACUITY: 2 days PAIN SCORE: 0/10 LOCATION: Bilateral chest FINDINGS: Cardiomegaly. Left basilar atelectasis. No consolidation or effusion. Aortic calcification. Degenerat moni changes of the spine. Kyphoplasty cement upper lumbar vertebral level. CONCLUSION: Left basilar atelectasis. Sukhi Pfeiffer MD on August 06, 2017 at 16:54 Board Certified Radiologist. This report was verified electronically.
[2017-08-06] MEDS ORDERED: ONDANSETRON HCL 4 MG/2 ML VIAL IV PUSH ONE (17:15)
[2017-08-06] MEDS ORDERED: MORPHINE SULFATE 4 MG/ML INJ IV PUSH ONE (17:15)
[2017-08-06] MEDS ORDERED: LACTULOSE SYRUP 20 GM/30 ML CUP PO PRN (17:30)
[2017-08-06] MEDS ORDERED: MAGNESIUM HYDROXIDE SUSP 30 ML CUP PO PRN (17:30)
[2017-08-06] MEDS ORDERED: SENNOSIDES 8.6 MG TAB PO PRN (17:30)
[2017-08-06] MEDS ORDERED: NURSING INFORMATION XX SCH (17:30)
[2017-08-06] MEDS ORDERED: RESP: ALBUTEROL 2.5 MG/3 ML NEB (PRN) INH (17:30)
[2017-08-06] MEDS ORDERED: ACETAMINOPHEN 325 MG TAB PO PRN (17:30)
[2017-08-06] MEDS ORDERED: BISACODYL 10 MG SUPP RECTAL PRN (17:30)
[2017-08-06] MEDS ORDERED: ONDANSETRON HCL 4 MG/2 ML VIAL IV PUSH PRN (17:30)
[2017-08-06] MEDS: COLESEVELAM HCL 625 MG TAB PO SCH (18:20)
[2017-08-06] MEDS ORDERED: DILTIAZEM HCL 25 MG/5 ML VIAL IV PUSH ONE (18:45)
[2017-08-06] MEDS ORDERED: DILTIAZEM INJ 125 MG in SODIUM CHLORIDE 0.9% INJ 100 ML IV PRN (18:45)
[2017-08-06 19:11] LABS: BILIRUBIN, URINE NEG (NEG); BLOOD, URINE TRACE (NEG); GLUCOSE,URINE NEG (NEG); KETONE, URINE NEG (NEG); NITRITE,URINE NEG (NEG); URINE COLOR YELLOW (YELLW/STRAW); URINE LEUKOCYTE ESTERASE NEG (NEG)
[2017-08-06 19:12] LABS: SQUAMOUS EPITHELIAL CELL URINE 0-5 /hpf (0-5); WBC, URINE 0-2 /hpf (0-5)
[2017-08-06] MEDS ORDERED: DILTIAZEM HCL 50 MG/10 ML VIAL IV PUSH ONE (19:30)
[2017-08-06] MEDS: DOCUSATE SODIUM 50 MG/SENNA 8.6 MG TAB PO SCH (21:00)
[2017-08-06] MEDS: APIXABAN 5 MG TABLET PO SCH (21:57)
[2017-08-06] MEDS: SODIUM CHLORIDE 0.9% FLUSH 10 ML FLUSH IV FLUSH SCH (21:58)
[2017-08-06] MEDS: FAMOTIDINE 20 MG TAB PO SCH (21:58)
--- NOTE | 2017-08-06 22:46 | HHI.HP ---
HPI Service Critical Care Medicine Primary Care Physician Malachi Hua MD Admission Diagnosis RAPID ATRIAL FLUTTER Diagnosis: Travel History International Travel<30 Days: No Contact w/Intl Traveler <30 Da: No Traveled to Known Affected Are: No History of Present Illness 86-year-old female presented to emergency department at [place] because of fast heart rate. She has a history of atrial fibrillation. She has had 2 ablations done in the past. She had cardioversion done last summer. She has had a fast heart rate for several days at least. She is on Eliquis. She is not on any medication for rate control now. The patient has been having a hard fast heart rate for several days at least. She denies any chest pain. She had an EKG in May of this year which showed sinus rhythm. She takes lisinopril for high blood pressure. She does have chronic pain and is on tramadol. Also hypothyroidism on levothyroxine. Review of Systems Constitutional: DENIES: Diaphoretic episodes, Fatigue, Fever, Weight gain, Weight loss, Chills, Dizziness, Change in appetite, Night Sweats Endocrine: DENIES: Abnorml menstrual pattern, Heat/cold intolerance, Polydipsia , Polyuria, Polyphagia Eyes: DENIES: Blurred vision, Diplopia, Eye inflammation, Eye pain, Vision loss , Photosensitivity, Double Vision Ears, nose, mouth, throat: DENIES: Tinnitus, Hearing loss, Vertigo, Nasal discharge, Oral lesions, Throat pain, Hoarseness, Ear Pain, Running Nose, Epistaxis, Sinus Pain, Toothache, Odynophagia Respiratory: DENIES: Apneas, Cough, Snoring, Wheezing, Hemoptysis, Sputum production, Shortness of breath Cardiovascular: COMPLAINS OF: Palpitations, DENIES: Chest pain, Syncope, Dyspnea on Exertion, PND, Lower Extremity Edema, Orthopnea, Claudication Gastrointestinal: DENIES: Abdominal pain, Black stools, Bloody stools, Constipation, Diarrhea, Nausea, Vomiting, Difficulty Swallowing, Anorexia Genitourinary: DENIES: Abnormal vaginal bleeding, Dysmenorrhea, Dyspareunia, Sexual dysfunction, Urinary frequency, Urinary incontinence, Urgency, Hematuria , Dysuria, Nocturia, Vaginal discharge Musculoskeletal: COMPLAINS OF: Back pain, DENIES: Joint pain, Muscle aches, Stiffness, Joint Swelling, Neck pain Integumentary: DENIES: Abnormal pigmentation, Pruritus, Rash, Nail changes, Breast masses, Breast skin changes, Nipple discharge Hematologic/lymphatic: DENIES: Bruising, Lymphadenopathy Immunologic/allergic: DENIES: Eczema, Urticaria Neurologic: DENIES: Abnormal gait, Headache, Localized weakness, Paresthesias, Seizures, Speech Problems, Tremor, Poor Balance Psychiatric: DENIES: Anxiety, Confusion, Mood changes, Depression, Hallucinations, Agitation, Suicidal Ideation, Homicidal Ideation, Delusions Past Family Social History Allergies: Coded Allergies: doxycycline (Unverified Allergy, Intermediate, UNKNOWN, 08/06/17) minocycline (Unverified Allergy, Intermediate, UNKNOWN, 08/06/17) tigecycline (Unverified Allergy, Intermediate, UNKNOWN, 08/06/17) pantoprazole (Unverified Allergy, Unknown, 08/06/17) codeine (Unverified Adverse Reaction, Intermediate, UPSET STOMACH, 08/06/17 ) prednisone (Unverified Adverse Reaction, Mild, Nausea/Vomiting, 08/06/17) amiodarone (Verified Adverse Reaction, Unknown, 08/06/17) amlodipine (Verified Adverse Reaction, Unknown, 08/06/17) Past Medical History Anxiety Depression Fibromyalgia A. fib on Eliquis HTN, Hyperlipidemia CHF (Echo 06/25/16 w/ EF 30-35%) Chronic Back Pain and h/o Compression Fx Past Surgical History Cataract Surgery Tonsillectomy Lipoma Kyphoplasty 2008 Reported Medications Reported Meds & Active Scripts Active Gnp Senna Plus 8.6-50 mg (Sennosides-Docusate Sodium) 8.6 Mg-50 Mg Tab 1 Tab PO BID Reported Baclofen 10 Mg Tab 10 Mg PO TID Tramadol (Tramadol HCl) 50 Mg Tab 50 Mg PO Q6H PRN Lisinopril 10 Mg Tab 10 Mg PO DAILY Prolia Inj (Denosumab) 60 Mg/Ml Inj 60 Mg SQ Q180D Vitamin D3 (Cholecalciferol) 1,000 Unit Tab 1,000 Units PO DAILY Levothyroxine (Levothyroxine Sodium) 88 Mcg Tab 88 Mcg PO DAILY Ranitidine (Ranitidine HCl) 150 Mg Tab 150 Mg PO BID K-Tab (Potassium Chloride) 20 Meq Tab 20 Meq PO DAILY Lasix (Furosemide) 40 Mg Tab 40 Mg PO DAILY Eliquis (Apixaban) 5 Mg Tab 5 Mg PO BID Welchol (Colesevelam HCl) 625 Mg Tab 625 Mg PO TID Active Ordered Medications Current Medications Medications (Trade) Dose Ordered Sig/Sammy Route PRN Reason Start Time Stop Time Status Last Admin Dose Admin Sodium Chloride 1,000 ml @ 100 mls/hr Q10H IV 08/06/17 16:30 08/06/17 16:32 Sodium Chloride (NS Flush) 2 ml UNSCH PRN IV FLUSH FLUSH AFTER USING IV ACCESS 08/06/17 17:30 Sodium Chloride (NS Flush) 2 ml BID IV FLUSH 08/06/17 21:00 08/06/17 21:58 Acetaminophen (Tylenol) 650 mg Q6H PRN PO FEVER >101F 08/06/17 17:30 Albuterol Sulfate (Albuterol Neb) 2.5 mg Q2HR NEB PRN INH SOB/WHEEZING 08/06/17 17:30 Miscellaneous Information ([facility] Information) 1 [id number] XX 08/06/17 17:30 Senna/Docusate Sodium (Beatrice-Colace) 1 tab BID PO 08/06/17 21:00 Magnesium Hydroxide (Milk Of Magnesia Liq) 30 ml Q12H PRN PO Mild constipation 08/06/17 17:30 Sennosides (Senokot) 17.2 mg Q12H PRN PO Moderate constipation 08/06/17 17:30 Bisacodyl (Dulcolax Supp) 10 mg DAILY PRN RECTAL SEVERE CONSITIPATION 08/06/17 17:30 Lactulose (Lactulose Liq) 30 ml DAILY PRN PO SEVERE CONSITIPATION 08/06/17 17:30 Apixaban (Eliquis) 5 mg BID PO 08/06/17 21:00 08/06/17 21:57 Colesevelam HCl (Welchol) 625 mg TID PO 08/06/17 18:00 08/06/17 18:20 Furosemide (Lasix) 40 mg DAILY PO 08/07/17 09:00 Levothyroxine Sodium (Synthroid) 88 mcg DAILY@0600 PO 08/07/17 06:00 Lisinopril (Prinivil) 10 mg DAILY PO 08/07/17 09:00 Tramadol HCl (Ultram) 50 mg Q6H PRN PO PAIN SCALE 1 TO 10 08/06/17 17:30 Famotidine (Pepcid) 10 mg BID PO 08/06/17 21:00 08/06/17 21:58 Ondansetron HCl (Zofran Odt) 4 mg Q6H PRN SL NAUSEA OR VOMITING 08/06/17 18:00 Diltiazem HCl 125 mg/Sodium Chloride 125 ml @ 5 mls/hr TITRATE PRN IV tachycardia 08/06/17 18:45 08/06/17 19:21 Family History No family history significant of early coronary artery disease or CVA Social History Occasional alcohol. Negative for tobacco or drugs. 's name is Abdelrahman [phone] Physical Exam Vital Signs Vital Signs Date Time Temp Pulse Resp B/P (MAP) Pulse Ox O2 Delivery O2 Flow Rate FiO2 08/06/17 22:23 98.5 108 16 108/54 (72) 98 Nasal Cannula 2.00 08/06/17 20:58 98.4 85 16 83/55 (64) 98 Nasal Cannula 2.00 08/06/17 20:58 98 Nasal Cannula 2.00 08/06/17 20:33 130 16 120/62 (81) 98 Nasal Cannula 2.00 08/06/17 19:46 101 16 77/41 (53) 100 Nasal Cannula 08/06/17 19:22 98.3 100 16 100/64 (76) 100 Nasal Cannula 2.00 08/06/17 19:21 148 100/64 08/06/17 18:23 16 08/06/17 18:00 146 16 90/50 (63) 100 Nasal Cannula 2.00 08/06/17 17:30 148 16 104/85 (91) 100 Nasal Cannula 2.00 08/06/17 17:15 131 16 98 Room Air 08/06/17 17:10 133 16 118/63 (81) 98 Room Air 08/06/17 17:00 146 16 110/66 (81) 98 Room Air 08/06/17 16:30 150 16 98/61 (73) 99 Room Air 08/06/17 16:17 152 16 90/54 (66) 08/06/17 16:05 153 16 89/53 (65) 08/06/17 15:58 156 16 94/78 (83) 08/06/17 15:45 157 16 134/76 (95) 95 Room Air 08/06/17 15:30 154 16 95 Room Air 08/06/17 15:03 97.4 159 20 133/67 (89) 99 Physical Exam GENERAL: Well-nourished, well-developed patient. SKIN: Warm and dry. HEAD: Normocephalic. EYES: No scleral icterus. No injection or drainage. NECK: Supple, trachea midline. No JVD or lymphadenopathy. CARDIOVASCULAR: Regular rate and rhythm without murmurs, gallops, or rubs. RESPIRATORY: Breath sounds equal bilaterally. No accessory muscle use. GASTROINTESTINAL: Abdomen soft, non-tender, nondistended. MUSCULOSKELETAL: No cyanosis, or edema. BACK: Nontender without obvious deformity. NEURO EXAM: GCS: 15 Mental Status: The patient is alert and oriented to person, place, and time with normal speech Cerebellar: [id number] and [id number] test normal bilaterally. Laboratory Laboratory Tests Test 08/06/17 16:05 08/06/17 17:45 White Blood Count 9.0 Red Blood Count 3.80 Hemoglobin 11.3 Hematocrit 34.7 Mean Corpuscular Volume 91.6 Mean Corpuscular Hemoglobin 29.7 Mean Corpuscular Hemoglobin Concent 32.5 Red Cell Distribution Width 14.8 Platelet Count 309 Mean Platelet Volume 8.5 Neutrophils (%) (Auto) 73.5 Lymphocytes (%) (Auto) 16.1 Monocytes (%) (Auto) 7.4 Eosinophils (%) (Auto) 0.5 Basophils (%) (Auto) 2.5 Neutrophils # (Auto) 6.7 Lymphocytes # (Auto) 1.4 Monocytes # (Auto) 0.7 Eosinophils # (Auto) 0.0 Basophils # (Auto) 0.2 CBC Comment DIFF FINAL Differential Comment Blood Urea Nitrogen 31 Creatinine 1.40 Random Glucose 109 Total Protein 6.5 Albumin 3.2 Calcium Level 9.2 Magnesium Level 2.5 Alkaline Phosphatase 80 Aspartate Amino Transf (AST/SGOT) 32 Alanine Aminotransferase (ALT/SGPT) 42 Total Bilirubin 0.3 Sodium Level 131 Potassium Level 4.6 Chloride Level 96 Carbon Dioxide Level 27.0 Anion Gap 8 Estimat Glomerular Filtration Rate 36 Troponin I 0.03 B-Type Natriuretic Peptide 1077 Thyroid Stimulating Hormone 3rd Gen 11.300 Urine Color YELLOW Urine Turbidity CLEAR Urine pH 6.0 Urine Specific [place] 1.015 Urine Protein TRACE Urine Glucose (UA) NEG Urine Ketones NEG Urine Occult Blood TRACE Urine Nitrite NEG Urine Bilirubin NEG Urine Urobilinogen 0.2 Urine Leukocyte Esterase NEG Urine RBC 3-5 Urine WBC 0-2 Urine Squamous Epithelial Cells 0-5 Urine Bacteria NONE Microscopic Urinalysis Comment CULT NOT INDICATED Date/Time Source Procedure Growth Status 08/06/17 20:25 Blood Peripheral Aerobic Blood Culture Pending Received 08/06/17 20:25 Blood Peripheral Anaerobic Blood Culture Pending Received 08/06/17 19:00 Nasal Aspirate Influenza Types A,B Antigen (BERNIE) - Final NEGATIVE FOR FLU A AND B ANTIGEN.... Complete 08/06/17 17:45 Urine Catheterized Urine Legionella Antigen Pending Received 08/06/17 17:45 Urine Catheterized Urine Streptococcus pneumoniae Antigen (M Pending Received Result Diagram: 08/06/17 1605 08/06/17 1605 Imaging Last 24 hours Impressions Chest X-Ray 08/06/17 1610 Signed Impressions: Service Date/Time: Sunday, August 06, 2017 16:35 - CONCLUSION: Left basilar atelectasis. Sukhi Pfeiffer MD Capstephani VTE Risk Assessment Caprini VTE Risk Assessment: Mod/High Risk (score >= 2) Caprini Risk Assessment Model Point Value = 1 Point Value = 2 Point Value = 3 Point Value = 5 Age 41-60 Minor surgery BMI > 25 kg/m2 Swollen legs Varicose veins or History of unexplained or recurrent spontaneous Oral contraceptives or hormone replacement Sepsis (< 1 month) Serious lung disease, including pneumonia (< 1 month) Abnormal pulmonary function Acute myocardial infarction Congestive heart failure (< 1 month) History of inflammatory bowel disease Medical patient at bed rest Age 61-74 Arthroscopic surgery Major open surgery (> 45 min) Laparoscopic surgery (> 45 min) Malignancy Confined to bed (> 72 hours) Immobilizing plaster cast Central venous access Age >= 75 History of VTE Family history of VTE Factor V Leiden Prothrombin [id number] Lupus anticoagulant Anticardiolipin antibodies Elevated serum homocysteine Heparin-induced thrombocytopenia Other congenital or acquired thrombophilia Stroke (< 1 month) Elective arthroplasty Hip, pelvis, or leg fracture Acute spinal cord injury (< 1 month) Prophylaxis Regimen Total Risk Factor Score Risk Level Prophylaxis Regimen 0-1 Low Early ambulation 2 Moderate Order ONE of the following: *Sequential Compression Device (SCD) *Heparin 5000 units SQ BID 3-4 Higher Order ONE of the following medications: *Heparin 5000 units SQ TID *Enoxaparin/Lovenox 40 mg SQ daily (WT < 150 kg, CrCl > 30 mL/min) *Enoxaparin/Lovenox 30 mg SQ daily (WT < 150 kg, CrCl > 10-29 mL/min) *Enoxaparin/Lovenox 30 mg SQ BID (WT < 150 kg, CrCl > 30 mL/min) AND/OR *Sequential Compression Device (SCD) 5 or more Highest Order ONE of the following medications: *Heparin 5000 units SQ TID (Preferred with Epidurals) *Enoxaparin/Lovenox 40 mg SQ daily (WT < 150 kg, CrCl > 30 mL/min) *Enoxaparin/Lovenox 30 mg SQ daily (WT < 150 kg, CrCl > 10-29 mL/min) *Enoxaparin/Lovenox 30 mg SQ BID (WT < 150 kg, CrCl > 30 mL/min) AND *Sequential Compression Device (SCD) Assessment and Plan Assessment and Plan Atrial fibrillation -Cardizem drip for rate control -Continue telemetry -Eliquis for anticoagulation -Series of troponins and EKGs Hyponatremia -Chronic -Gentle IV fluid hydration -Monitor trend Chronic back pain -Continue home meds and morphine as needed CHF - Chronic, stable. - Echo 06/25/16 w/ EF 30-35% - Continue Lisinopril AAA - 05/25/2017 CT Abdomen/Pelvis w/ focal aneurysmal dilatation of descending thoracic aorta 4.1cm and ascending aorta 4.2cm - no emergent intervention needed Hypothyroidism - Continue home dose levothyroxine 88 mcg daily DVT GI prophylaxis -Lexx's and SCDs -Eliquis -Heart healthy diet Critical Care: The total critical care time was 35 minutes. Time to perform other separately billable procedures was not included in the critical care time. Barron Fry MD August 06, 2017 10:46 pm
[2017-08-06] MEDS ORDERED: DEXMEDETOMIDINE INJ 200 MCG in SODIUM CHLORIDE 0.9% INJ 50 ML IV PRN (23:30)
[2017-08-06] MEDS: MORPHINE SULFATE 4 MG/ML INJ IM PRN (23:34)
[2017-08-07] VITALS (26 sets, daily range): BP systolic 82–145; BP diastolic 50–82; PULSE 50–148; RESP 11–22; TEMP 97.7–98.6; O2SAT 66–100
[2017-08-07] MEDS: MORPHINE SULFATE 4 MG/ML INJ IM PRN ×2 (03:19→07:07)
--- NOTE | 2017-08-07 04:33 | RADRPT ---
EXAM DATE/TIME: 08/07/2017 04:06 [facility] COMPARISON: CHEST SINGLE AP, August 06, 2017, 16:35. INDICATIONS : Short of breath. MEDICAL HISTORY : Gastroesophageal reflux disease. Thoracic aneurysm. colitis. Rectal mass. Hypertension. Atrial fibril lation. Coronary artery disease. SURGICAL HISTORY : Kyphoplasty. ENCOUNTER: Subsequent ACUITY: 3 days PAIN SCORE: 0/10 LOCATION: Bilateral chest FINDINGS: A single portable frontal view of the chest shows moderate cardiomegaly which is unchanged. No pulmon opal vascular engorgement observed. Left basilar consolidation similar to the prior study. Right lung is clear. No effusions. CONCLUSION: Unchanged left basilar consolidation likely atelectasis. Cardiomegaly. Demetrio Johnston Jr., MD on August 07, 2017 at 4:30 Board Certified Radiologist. This report was verified electronically.
[2017-08-07 05:59] LABS: AUTOMATED NEUTROPHIL # 7.2 TH/MM3 (1.8-7.7); BASOPHIL # 0.1 TH/MM3 (0-0.2); BASOPHIL % 0.6 % (0.0-2.0); EOSINOPHIL % 0.3 % (0.0-4.0); HEMATOCRIT 37.8 % (35.0-46.0); HEMOGLOBIN 12.5 GM/DL (11.6-15.3); LYMPH % 13.9 % (9.0-44.0); LYMPHOCYTE # 1.3 TH/MM3 (1.0-4.8); MEAN CELL VOLUME 93.1 FL (80.0-100.0); MEAN CORPUSCULAR HEMOGLOBIN 30.9 PG (27.0-34.0); MEAN CORPUSCULAR HGB CONC 33.2 % (32.0-36.0); MEAN PLATELET VOLUME 8.4 FL (7.0-11.0); MONO % 11.1 % (0.0-8.0); MONOCYTE # 1.1 TH/MM3 (0-0.9); NEUT % 74.1 % (16.0-70.0); PLATELET COUNT 286 TH/MM3 (150-450); RED BLOOD COUNT 4.06 MIL/MM3 (4.00-5.30); RED CELL DISTRIBUTION WIDTH 15.6 % (11.6-17.2); WHITE BLOOD COUNT 9.7 TH/MM3 (4.0-11.0)
[2017-08-07] MEDS: LEVOTHYROXINE SODIUM 88 MCG TAB PO SCH (06:00)
[2017-08-07 06:08] LABS: INTERNATIONAL NORMALIZED RATIO 1.2 RATIO; PROTHROMBIN TIME - PATIENT 11.8 SEC (9.8-11.6)
[2017-08-07 06:23] LABS: ALBUMIN 3.1 GM/DL (3.4-5.0); AST (GOT) 61 U/L (15-37); BICARBONATE 20.8 MEQ/L (21.0-32.0); BLOOD UREA NITROGEN 28 MG/DL (7-18); CALCIUM 8.1 MG/DL (8.5-10.1); CHLORIDE 102 MEQ/L (98-107); CHOLESTEROL 174 MG/DL (120-200); GLOMERULAR FILTRATION RATE 43 ML/MIN (>89); GLUCOSE,RANDOM 97 MG/DL (74-106); MAGNESIUM 2.2 MG/DL (1.5-2.5); PHOSPHORUS 3.9 MG/DL (2.5-4.9); SODIUM (NA) 135 MEQ/L (136-145); TRIGLYCERIDES 79 MG/DL (42-150)
[2017-08-07 06:24] LABS: ALT (GPT) 75 U/L (10-53)
[2017-08-07 06:33] LABS: ALKALINE PHOSPHATASE 164 U/L (45-117); CHOLESTEROL/ HDL RATIO 3.91 RATIO; FREE T4 1.46 NG/DL (0.76-1.46); HDL CHOLESTEROL 44.5 MG/DL (40.0-60.0); LDL CHOLESTEROL 114 MG/DL (0-99); TOTAL BILIRUBIN ADULT 0.4 MG/DL (0.2-1.0); TOTAL PROTEIN 7.3 GM/DL (6.4-8.2)
--- NOTE | 2017-08-07 07:50 | HHI.CCPN ---
Subjective Remarks/Hospital Course 86-year-old female presented to emergency department at [facility] because of fast heart rate. She has a history of atrial fibrillation. She has had 2 ablations done in the past. She had cardioversion done last summer. She is on Eliquis. She is not on any medication for rate control now. The patient has been having a hard fast heart rate for several days at least. She denies any chest pain. She had an EKG in May of this year which showed sinus rhythm. She takes lisinopril for high blood pressure. She does have chronic pain and is on tramadol. Also hypothyroidism on levothyroxine. SUBJ 08/07: Heart rate remains from 90-130 on Cardizem infusion 15 mg/h. still remains what appears to be a flutter with RVR. Due to Cardizem infusion shortage, will start Cardizem 60 mg p.o. every 6 hours and attempt weaning Cardizem IV. For rate control use esmolol if needed as patient is allergic to Amio Objective Vital Signs Date Time Temp Pulse Resp B/P (MAP) Pulse Ox O2 Delivery O2 Flow Rate FiO2 08/07/17 06:00 96 17 113/82 (92) 75 08/07/17 04:00 98.0 08/07/17 03:27 Nasal Cannula 3.00 Intake and Output 08/07/17 08/07/17 08/08/17 08:00 16:00 00:00 Intake Total 789.6 ml Output Total 400 ml Balance 389.6 ml Result Diagram: 08/07/17 0540 08/07/17 0540 Other Results Microbiology Date/Time Source Procedure Growth Status 08/06/17 19:00 Nasal Aspirate Influenza Types A,B Antigen (BERNIE) - Final NEGATIVE FOR FLU A AND B ANTIGEN.... Complete Imaging Last 24 hours Impressions Chest X-Ray 08/06/17 1610 Signed Impressions: Service Date/Time: Sunday, August 06, 2017 16:35 - CONCLUSION: Left basilar atelectasis. Sukhi Pfeiffer MD Objective Remarks GENERAL: Well-nourished, well-developed patient. SKIN: Warm and dry. HEAD: Normocephalic. EYES: No scleral icterus. No injection or drainage. NECK: Supple, trachea midline. No JVD or lymphadenopathy. CARDIOVASCULAR: Atrial flutter with RVR, no murmurs, gallops, or rubs. RESPIRATORY: Breath sounds equal bilaterally. No accessory muscle use. GASTROINTESTINAL: Abdomen soft, non-tender, nondistended. MUSCULOSKELETAL: No cyanosis, or edema. BACK: Nontender without obvious deformity. NEURO EXAM: The patient is alert and oriented to person, place, and time with normal speech. Slightly slurred speech after receiving morphine, no focal deficit Urinary Catheter: Yes Assessment to: Continue A/P Assessment and Plan Atrial fibrillation/flutter with RVR -Cardizem drip for rate control -Start Cardizem 60 mg p.o. every 6 hours -Continue telemetry -Await EP consult -Eliquis for anticoagulation -Series of troponins and EKGs Hyponatremia -Chronic. Na 135 today -Gentle IV fluid hydration -Monitor trend Chronic back pain -Continue home meds and morphine as needed, but reduce dose CHF - Chronic, stable. 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 to assume care in am 08/08/17. Transfer to CICU with telemetry Desi Quick MD August 07, 2017 07:50
[2017-08-07] MEDS ORDERED: DILTIAZEM HCL 60 MG TAB PO ONE (08:15)
[2017-08-07] MEDS: DOCUSATE SODIUM 50 MG/SENNA 8.6 MG TAB PO SCH ×2 (08:22→20:04)
[2017-08-07] MEDS: LISINOPRIL 10 MG TAB PO SCH (08:22)
[2017-08-07] MEDS: APIXABAN 5 MG TABLET PO SCH ×2 (08:22→20:05)
[2017-08-07] MEDS: FAMOTIDINE 20 MG TAB PO SCH ×2 (08:23→20:06)
[2017-08-07] MEDS: FUROSEMIDE 40 MG TAB PO SCH (08:24)
[2017-08-07] MEDS: SODIUM CHLORIDE 0.9% FLUSH 10 ML FLUSH IV FLUSH SCH ×2 (08:25→20:05)
[2017-08-07] MEDS: COLESEVELAM HCL 625 MG TAB PO SCH ×3 (09:00→17:21)
[2017-08-07] MEDS: SODIUM CHLOR 0.9% 1000 ML INJ 1,000 ML IV SCH ×3 (11:27→20:05)
[2017-08-07] MEDS ORDERED: MORPHINE SULFATE 4 MG/ML INJ IV PUSH ONE (12:30)
[2017-08-07] MEDS: ACETAMINOPHEN/HYDROcodone 325 MG/5 MG TAB PO PRN ×2 (13:17→20:04)
[2017-08-07] MEDS: DILTIAZEM HCL 60 MG TAB PO SCH ×2 (14:04→20:05)
[2017-08-07] MEDS: ESMOLOL DRIP INJ PREMIX 250 ML IV PRN (14:33)
[2017-08-07] MEDS: traMADol HCL 50 MG TAB PO PRN (20:04)
[2017-08-07] MEDS: AMIODARONE 200 MG TAB PO SCH (20:52)
--- NOTE | 2017-08-07 21:05 | MB ---
cc: Leo Pickard MD DATE: 08/07/2017 REASON FOR CONSULTATION: Supraventricular tachycardia arrhythmia. Heart rate difficult to control. HISTORY OF PRESENT ILLNESS: Mrs. Romo is an 86-year-old female with history of tachyarrhythmia, atrial fibrillation, previous ablation and cardioversion, was doing well until yesterday began with tachyarrhythmia. She decided to come to the emergency room. She was found in a heart rate of around 150-160 beats per minute, very difficult to control despite medication. She was transferred to this institution and she was on esmolol. I was consulted for evaluation and management. The chart was reviewed. The patient was evaluated. ALLERGIES: ARE MULTIPLE, AMIODARONE, AMLODIPINE, CODEINE, DOXYCYCLINE, MINOCYCLINE, PANTOPRAZOLE, PREDNISONE. REVIEW OF SYSTEMS: According to the patient, refer tachyarrhythmia and shortness of breath. No chest pain, no chest discomfort. PHYSICAL EXAMINATION: GENERAL: Alert, fully oriented. VITAL SIGNS: Her blood pressure 119/55, pulse on telemetry currently is around 110-115, respiratory rate 18. LUNGS: Good air entry bilaterally. CARDIOVASCULAR: S1, S2, tachycardic, irregular. ABDOMEN: Soft. No mass. EXTREMITIES: No edema. ELECTROCARDIOGRAM: Indicates possible atrial fibrillation, left atrial tachyarrhythmia. LABORATORY DATA: Hemoglobin 12, white blood cell 9.7, potassium 4.7, creatinine 1.20. Troponin 0.04, this is the highest one. BNP around close to 1100. ASSESSMENT AND RECOMMENDATIONS: Mrs. Romo has tachyarrhythmia. She has history of atrial fibrillation. Last ablation was in January 2017. She was doing well until a couple of weeks ago. Heart rate very difficult to control. Cardizem not available in the hospital. SHE REFERS SHE HAS SOME ALLERGIC REACTION TO AMIODARONE, BUT DOES NOT REMEMBER IF WAS SKIN AT THE SITE OF INFUSION OF THE MEDICATION. At this point, I am going to try amiodarone p.o. I am going to try 400 mg twice a day for 5 days and then cut it to 200 mg a day. Nurse is aware of the reaction reported. Will be closely monitored. If heart rate cannot be controlled, then I will proceed with ablation on Saturday. Case extensively discussed with her. She understands the reason, the nature and the benefits of the procedure. Also, she understands the possible side effect she may have with amiodarone and the nurse is monitoring her. I will closely monitor her during hospitalization. MD EDDIE Akbar/GERI , 08:38 PM , 09:04 PM
--- NOTE | 2017-08-07 22:24 | EKG ---
Date Performed: 08/06/2017 Time Performed: 22:04:30 PTAGE: 86 years EKG: ATRIAL FLUTTER/TACHYCARDIA WITH RAPID VENTRICULAR RESPONSE POSSIBLE RIGHT VENTRICULAR CONDU CTION DELAY ST DEVIATION AND MODERATE T-WAVE ABNORMALITY, CONSIDER ANTEROLATERAL ISCHEMIA ABNORMAL EC G PREVIOUS TRACING : 08/06/2017 15.13 Since the previous tracing, no significant change noted DOCTOR: Dean Henderson Interpretating Date/Time 08/07/2017 22:22:27
--- NOTE | 2017-08-07 22:33 | EKG ---
Date Performed: 08/06/2017 Time Performed: 15:13:13 PTAGE: 86 years EKG: ATRIAL FLUTTER/TACHYCARDIA WITH RAPID VENTRICULAR RESPONSE INCOMPLETE RIGHT BUNDLE BRANCH B LOCK LEFT VENTRICULAR HYPERTROPHY AND ST-T CHANGE ABNORMAL ECG INTERPRETATION BASED ON A DEFAULT AGE OF 40 YEARS NO PREVIOUS TRACING DOCTOR: Dean Henderson Interpretating Date/Time 08/07/2017 22:33:15
[2017-08-08] VITALS (19 sets, daily range): BP systolic 68–134; BP diastolic 40–89; PULSE 85–143; RESP 10–36; TEMP 97–98.5; O2SAT 91–100
[2017-08-08] MEDS: DILTIAZEM HCL 60 MG TAB PO SCH ×4 (02:00→20:00)
[2017-08-08] MEDS: ACETAMINOPHEN/HYDROcodone 325 MG/5 MG TAB PO PRN (02:44)
[2017-08-08] MEDS: LEVOTHYROXINE SODIUM 88 MCG TAB PO SCH (05:11)
[2017-08-08] MEDS: SODIUM CHLORIDE 0.9% FLUSH 10 ML FLUSH IV FLUSH SCH ×2 (07:51→20:17)
[2017-08-08] MEDS: SODIUM CHLOR 0.9% 1000 ML INJ 1,000 ML IV SCH ×2 (07:51→17:45)
[2017-08-08] MEDS: AMIODARONE 200 MG TAB PO SCH ×2 (07:52→20:16)
[2017-08-08] MEDS: LISINOPRIL 10 MG TAB PO SCH (07:52)
[2017-08-08] MEDS: FUROSEMIDE 40 MG TAB PO SCH (07:53)
[2017-08-08] MEDS: COLESEVELAM HCL 625 MG TAB PO SCH ×3 (07:53→17:45)
[2017-08-08] MEDS: traMADol HCL 50 MG TAB PO PRN (07:54)
[2017-08-08] MEDS: APIXABAN 5 MG TABLET PO SCH ×2 (07:55→20:16)
[2017-08-08] MEDS: DOCUSATE SODIUM 50 MG/SENNA 8.6 MG TAB PO SCH ×2 (08:09→20:16)
[2017-08-08] MEDS: FAMOTIDINE 20 MG TAB PO SCH ×2 (08:10→20:20)
--- NOTE | 2017-08-08 09:26 | HHI.PR ---
Subjective Remarks Pt seen earlier this morning around 8:15am Pt doesn't feel any palpitations. Pt denies any CP/worsening SOB/n/v complains that bed is not very comfortable and also the tape from the pulse ox bothering her discussed w RN, pt was restarted on the esmolol gtt, she did get her amiodarone po w not much improvement of her HR Objective Vitals Vital Signs Date Time Temp Pulse Resp B/P (MAP) Pulse Ox O2 Delivery O2 Flow Rate FiO2 08/08/17 06:00 143 08/08/17 04:15 98.1 127 27 129/89 (102) 93 08/08/17 04:00 100 08/08/17 02:00 102 08/08/17 01:00 86 10 119/57 (77) 100 08/08/17 00:15 86 10 68/40 (49) 100 08/08/17 00:00 85 08/07/17 23:00 84 14 96/51 (66) 100 08/07/17 22:01 84 15 110/53 (72) 100 08/07/17 22:00 87 08/07/17 21:45 77 14 82/50 (61) 100 08/07/17 21:00 93 18 113/54 (73) 100 08/07/17 20:01 97.8 99 19 145/53 (83) 93 08/07/17 20:00 127 08/07/17 20:00 148 08/07/17 19:34 98 Nasal Cannula 3.00 08/07/17 18:00 88 08/07/17 16:18 75 107/51 08/07/17 16:00 97.7 72 15 119/55 (76) 98 08/07/17 16:00 72 08/07/17 14:33 141 87/64 08/07/17 14:00 118 08/07/17 12:00 98.6 79 11 104/58 (73) 97 08/07/17 12:00 79 08/07/17 10:00 75 08/07/17 09:48 93 Nasal Cannula 3.00 I/O 08/07/17 08/07/17 08/07/17 08/08/17 08/08/17 08/08/17 07:00 15:00 23:00 07:00 15:00 23:00 Intake Total 789.6 ml 1105.6 ml 1483 ml Output Total 400 ml 800 ml Balance 389.6 ml 1105.6 ml 683 ml Intake Oral 0 ml 760 ml IV Total 789.6 ml 1105.6 ml 723 ml Output Urine Total 400 ml 800 ml Stool Total 0 ml 0 ml # Voids 3 Result Diagram: 08/07/17 0540 08/07/17 0540 Imaging Last Impressions Chest X-Ray 08/07/17 0000 Signed Impressions: Service Date/Time: Monday, August 07, 2017 04:06 - CONCLUSION: Unchanged left basilar consolidation likely atelectasis. Cardiomegaly. Demetrio Johnston Jr., MD Objective Remarks GENERAL: Well-nourished, well-developed patient. CARDIOVASCULAR: Atrial flutter with RVR, no murmurs HR in the 130's on TELE RESPIRATORY: Breath sounds equal bilaterally. No accessory muscle use. GASTROINTESTINAL: Abdomen soft, non-tender, nondistended. MUSCULOSKELETAL: moves ext A/P Assessment and Plan Atrial fibrillation/flutter with RVR -s/pCardizem drip for rate control -on Cardizem 60 mg p.o. every 6 hours and amiodarone 400mg po q12hrs (monitor closely as there is concerns about home allergy to amiodarone but unsure what it is) -Continue telemetry -Dr. Pickard, [place], evaluated the patient and pt might be undergoing cardiac ablation on saturday -Eliquis for anticoagulation -Back on esmolol gtt due HR not well controlled. Hyponatremia -Chronic. Na 135 yesterday, no new lab today -Gentle IV fluid hydration -Monitor trend Chronic back pain -Continue home meds and morphine as needed, but reduce dose CHF - Chronic, stable. 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 allergy to amiodarone but pt so far tolerating it. Pt also on esmolol gtt. Possible ablation on saturday Debbie Hunt MD August 08, 2017 09:26
[2017-08-08] MEDS: ESMOLOL DRIP INJ PREMIX 250 ML IV PRN ×3 (11:49→22:00)
[2017-08-08 18:40] LABS: BICARBONATE 24.1 MEQ/L (21.0-32.0); CALCIUM 7.1 MG/DL (8.5-10.1)
[2017-08-08 19:20] LABS: CALCIUM-PROTEIN CORRECTED 7.8 MG/DL (8.5-10.1); TOTAL PROTEIN 5.8 GM/DL (6.4-8.2)
--- NOTE | 2017-08-08 20:38 | HHI.PR ---
Subjective Remarks Tired, tachycardia Objective Vital Signs Date Time Temp Pulse Resp B/P (MAP) Pulse Ox O2 Delivery O2 Flow Rate FiO2 08/08/17 20:30 122 112/63 08/08/17 18:00 124 08/08/17 17:45 112 104/53 08/08/17 16:00 120 08/08/17 16:00 97.0 120 18 111/67 (82) 91 08/08/17 14:00 129 08/08/17 12:00 98.5 103 17 85/52 (63) 08/08/17 12:00 103 08/08/17 11:49 101 108/62 08/08/17 10:00 125 08/08/17 09:00 126 08/08/17 08:30 129 08/08/17 08:00 98.0 132 29 134/69 (90) 08/08/17 08:00 132 08/08/17 08:00 132 134/69 08/08/17 07:51 130 08/08/17 06:00 143 08/08/17 04:15 98.1 127 27 129/89 (102) 93 08/08/17 04:00 100 08/08/17 02:00 102 08/08/17 01:00 86 10 119/57 (77) 100 08/08/17 00:15 86 10 68/40 (49) 100 08/08/17 00:00 85 08/07/17 23:00 84 14 96/51 (66) 100 08/07/17 22:01 84 15 110/53 (72) 100 08/07/17 22:00 87 08/07/17 21:45 77 14 82/50 (61) 100 08/07/17 21:00 93 18 113/54 (73) 100 I/O 08/07/17 08/07/17 08/07/17 08/08/17 08/08/17 08/08/17 07:00 15:00 23:00 07:00 15:00 23:00 Intake Total 789.6 ml 1105.6 ml 1483 ml 250 ml 1720 ml Output Total 400 ml 800 ml Balance 389.6 ml 1105.6 ml 683 ml 250 ml 1720 ml Intake Oral 0 ml 760 ml 480 ml IV Total 789.6 ml 1105.6 ml 723 ml 250 ml 1240 ml Output Urine Total 400 ml 800 ml Stool Total 0 ml 0 ml # Voids 3 3 # Bowel Movements 0 Result Diagram: 08/07/17 0540 08/08/17 1607 Imaging Alert, fully oriented lungs: ventilated Heart: S1, S2 tachycardia irregular Abdomen: soft Ext No edema Last Impressions Chest X-Ray 08/07/17 0000 Signed Impressions: Service Date/Time: Monday, August 07, 2017 04:06 - CONCLUSION: Unchanged left basilar consolidation likely atelectasis. Cardiomegaly. Demetrio Johnston Jr., MD Current Medications Medications (Trade) Dose Ordered Sig/Sammy Route Start Time Stop Time Status Last Admin Sodium Chloride 1,000 ml @ 100 mls/hr Q10H IV 08/06/17 16:30 08/08/17 17:45 (NS Flush) 2 ml UNSCH PRN IV FLUSH 08/06/17 17:30 (NS Flush) 2 ml BID IV FLUSH 08/06/17 21:00 08/08/17 20:17 (Tylenol) 650 mg Q6H PRN PO 08/06/17 17:30 (Albuterol Neb) 2.5 mg Q2HR NEB PRN INH 08/06/17 17:30 ([facility] Nursing Information) 1 Q361D XX 08/06/17 17:30 08/06/17 23:00 (Beatrice-Colace) 1 tab BID PO 08/06/17 21:00 08/08/17 20:16 (Milk Of Magnesia Liq) 30 ml Q12H PRN PO 08/06/17 17:30 (Senokot) 17.2 mg Q12H PRN PO 08/06/17 17:30 (Dulcolax Supp) 10 mg DAILY PRN RECTAL 08/06/17 17:30 (Lactulose Liq) 30 ml DAILY PRN PO 08/06/17 17:30 (Eliquis) 5 mg BID PO 08/06/17 21:00 08/08/17 20:16 (Welchol) 625 mg TID PO 08/06/17 18:00 08/08/17 17:45 (Lasix) 40 mg DAILY PO 08/07/17 09:00 08/08/17 07:53 (Synthroid) 88 mcg DAILY@0600 PO 08/07/17 06:00 08/08/17 05:11 (Prinivil) 10 mg DAILY PO 08/07/17 09:00 08/08/17 07:52 (Ultram) 50 mg Q6H PRN PO 08/06/17 17:30 08/08/17 07:54 (Pepcid) 10 mg BID PO 08/06/17 21:00 08/08/17 20:20 (Zofran Odt) 4 mg Q6H PRN SL 08/06/17 18:00 Diltiazem HCl 125 mg/Sodium Chloride 125 ml @ 5 mls/hr TITRATE PRN IV 08/06/17 18:45 08/06/17 19:21 (Morphine Inj) 2 mg Q3H PRN IM 08/06/17 23:30 Future Hold 08/07/17 07:07 Dexmedetomidine HCl 200 mcg/ Sodium Chloride 52 ml @ 3.01 mls/hr TITRATE PRN IV 08/06/17 23:30 08/06/17 23:36 Esmolol HCl/ Sodium Chloride 250 ml @ 17.55 mls/ hr TITRATE PRN IV 08/07/17 08:00 08/08/17 17:45 (Cardizem) 60 mg Q6H PO 08/07/17 14:00 08/08/17 07:52 ([place] 5-325 Mg) 1 tab Q6H PRN PO 08/07/17 12:30 08/08/17 02:44 (Lopressor Inj) 2.5 mg Q4H PRN IV PUSH 08/07/17 15:30 (Cordarone) 400 mg Q12HR PO 08/07/17 21:00 08/12/17 20:59 08/08/17 20:16 Assessment and Plan Problem List: (1) Atrial fibrillation with RVR ICD Codes: I48.91 - Unspecified atrial fibrillation Status: Acute Plan: In atrial fibrillation/ left atrial tach HR in the 120s despite multiple medications EPS and ablation tomorrow AM Patient understand the risks, the nature and benefits of the procedure Leo Pickard MD August 08, 2017 20:37
[2017-08-09] VITALS (12 sets, daily range): BP systolic 87–113; BP diastolic 51–69; PULSE 112–135; RESP 19–26; TEMP 96.3–98.1; O2SAT 64
[2017-08-09] MEDS: ESMOLOL DRIP INJ PREMIX 250 ML IV PRN ×5 (00:35→22:58)
[2017-08-09] MEDS: DILTIAZEM HCL 60 MG TAB PO SCH ×4 (02:00→21:53)
[2017-08-09] MEDS: SODIUM CHLOR 0.9% 1000 ML INJ 1,000 ML IV SCH ×3 (04:57→17:00)
[2017-08-09] MEDS: SODIUM CHLORIDE 0.9% FLUSH 10 ML FLUSH IV FLUSH PRN (04:58)
[2017-08-09 05:05] LABS: BICARBONATE 18.6 MEQ/L (21.0-32.0); CALCIUM 6.4 MG/DL (8.5-10.1); CREATININE 0.87 MG/DL (0.50-1.00)
[2017-08-09] MEDS: LEVOTHYROXINE SODIUM 88 MCG TAB PO SCH (05:06)
[2017-08-09 05:21] LABS: TOTAL PROTEIN 5.1 GM/DL (6.4-8.2)
[2017-08-09 05:46] LABS: CALCIUM-PROTEIN CORRECTED 7.4 MG/DL (8.5-10.1)
[2017-08-09] MEDS ORDERED: HEPARIN-NS/PF INJ 0 ML ONE (06:45)
[2017-08-09] MEDS ORDERED: ISOPROTERENOL INJ PREMIX 0 ML IV ONE (06:59)
[2017-08-09] MEDS ORDERED: HEPARIN-D5W 25,000 U/250 ML 250 ML ONE (06:59)
[2017-08-09] MEDS ORDERED: MIDAZOLAM HCL 2 MG/2 ML VIAL ONE (06:59)
[2017-08-09] MEDS ORDERED: HEPARIN SODIUM - IV 10,000 UNITS/10 ML VIAL ONE (07:00)
[2017-08-09] MEDS ORDERED: PROTAMINE SULFATE 50 MG/5 ML VIAL ONE (07:00)
[2017-08-09] MEDS ORDERED: FAMOTIDINE 20 MG/2 ML VIAL ONE (07:00)
[2017-08-09] MEDS: COLESEVELAM HCL 625 MG TAB PO SCH ×3 (09:00→18:00)
[2017-08-09] MEDS: ONDANSETRON ODT 4 MG TAB SL PRN (09:55)
[2017-08-09] MEDS ORDERED: SODIUM CHLORID 0.9% 500 ML INJ 500 ML IV ONE (10:00)
--- NOTE | 2017-08-09 10:01 | HHI.PR ---
Subjective Remarks 86-year-old female presented to emergency department at [place] because of fast heart rate. She has a history of atrial fibrillation. She has had 2 ablations done in the past. She had cardioversion done last summer. She is on Eliquis. She is not on any medication for rate control now. The patient has been having a hard fast heart rate for several days at least. She denies any chest pain. She had an EKG in May of this year which showed sinus rhythm. She takes lisinopril for high blood pressure. She does have chronic pain and is on tramadol. Also hypothyroidism on levothyroxine. 08/07: Heart rate remains from 90-130 on Cardizem infusion 15 mg/h. still remains what appears to be a flutter with RVR. Due to Cardizem infusion shortage, will start Cardizem 60 mg p.o. every 6 hours and attempt weaning Cardizem IV. For rate control use esmolol if needed as patient is allergic to Amio 08-08 Pt seen earlier this morning around 8:15am Pt doesn't feel any palpitations. Pt denies any CP/worsening SOB/n/v complains that bed is not very comfortable and also the tape from the pulse ox bothering her discussed w RN, pt was restarted on the esmolol gtt, she did get her amiodarone po w not much improvement of her HR 08-09 is HYPOTENSIVE TODAY WILL GIVE A NS BOLUS COMPLAINS OF RIGHT HAND TINGLING AND RIGHT HAD IS PURPLISH/BLUISH DW RN AND PT TO HAVE CARDIOVERSION TODAY REPLACE CALCIUM FLUID BOLUS Objective Vitals Vital Signs Date Time Temp Pulse Resp B/P (MAP) Pulse Ox O2 Delivery O2 Flow Rate FiO2 08/09/17 09:13 144 113/58 08/09/17 06:00 122 08/09/17 04:57 120 08/09/17 04:00 118 08/09/17 02:00 112 08/09/17 00:35 114 08/09/17 00:00 118 08/09/17 00:00 121 98/63 08/09/17 00:00 121 23 98/63 (75) 08/08/17 23:24 117 30 93/56 (68) 08/08/17 22:01 112 36 99/62 (74) 08/08/17 22:00 118 08/08/17 22:00 118 08/08/17 21:00 117 18 107/63 (78) 08/08/17 20:30 122 112/63 08/08/17 20:10 98.0 119 22 112/63 (79) 08/08/17 20:00 116 08/08/17 20:00 Nasal Cannula 3.00 08/08/17 18:00 124 08/08/17 17:45 112 104/53 08/08/17 16:00 120 08/08/17 16:00 97.0 120 18 111/67 (82) 91 08/08/17 14:00 129 08/08/17 12:00 98.5 103 17 85/52 (63) 08/08/17 12:00 103 08/08/17 11:49 101 108/62 08/08/17 10:00 125 I/O 08/08/17 08/08/17 08/08/17 08/09/17 08/09/17 08/09/17 07:00 15:00 23:00 07:00 15:00 23:00 Intake Total 1483 ml 250 ml 1720 ml 2280 ml Output Total 800 ml Balance 683 ml 250 ml 1720 ml 2280 ml Intake Oral 760 ml 480 ml 240 ml IV Total 723 ml 250 ml 1240 ml 2040 ml Output Urine Total 800 ml Stool Total 0 ml # Voids 3 3 # Bowel Movements 0 0 Result Diagram: 08/07/17 0540 08/09/17 0348 Other Results Laboratory Tests Test 08/06/17 16:05 08/06/17 17:45 08/06/17 23:00 08/06/17 23:30 White Blood Count 9.0 TH/MM3 Red Blood Count 3.80 MIL/MM3 Hemoglobin 11.3 GM/DL Hematocrit 34.7 % Mean Corpuscular Volume 91.6 FL Mean Corpuscular Hemoglobin 29.7 PG Mean Corpuscular Hemoglobin Concent 32.5 % Red Cell Distribution Width 14.8 % Platelet Count 309 TH/MM3 Mean Platelet Volume 8.5 FL Neutrophils (%) (Auto) 73.5 % Lymphocytes (%) (Auto) 16.1 % Monocytes (%) (Auto) 7.4 % Eosinophils (%) (Auto) 0.5 % Basophils (%) (Auto) 2.5 % Neutrophils # (Auto) 6.7 TH/MM3 Lymphocytes # (Auto) 1.4 TH/MM3 Monocytes # (Auto) 0.7 TH/MM3 Eosinophils # (Auto) 0.0 TH/MM3 Basophils # (Auto) 0.2 TH/MM3 CBC Comment DIFF FINAL Differential Comment Blood Urea Nitrogen 31 MG/DL Creatinine 1.40 MG/DL Random Glucose 109 MG/DL Total Protein 6.5 GM/DL Albumin 3.2 GM/DL Calcium Level 9.2 MG/DL Magnesium Level 2.5 MG/DL Alkaline Phosphatase 80 U/L Aspartate Amino Transf (AST/SGOT) 32 U/L Alanine Aminotransferase (ALT/SGPT) 42 U/L Total Bilirubin 0.3 MG/DL Sodium Level 131 MEQ/L Potassium Level 4.6 MEQ/L Chloride Level 96 MEQ/L Carbon Dioxide Level 27.0 MEQ/L Anion Gap 8 MEQ/L Estimat Glomerular Filtration Rate 36 ML/MIN Troponin I 0.03 NG/ML 0.04 NG/ML B-Type Natriuretic Peptide 1077 PG/ML Thyroid Stimulating Hormone 3rd Gen 11.300 uIU/ML Urine Color YELLOW Urine Turbidity CLEAR Urine pH 6.0 Urine Specific [place] 1.015 Urine Protein TRACE mg/dL Urine Glucose (UA) NEG mg/dL Urine Ketones NEG mg/dL Urine Occult Blood TRACE Urine Nitrite NEG Urine Bilirubin NEG Urine Urobilinogen 0.2 MG/DL Urine Leukocyte Esterase NEG Urine RBC 3-5 /hpf Urine WBC 0-2 /hpf Urine Squamous Epithelial Cells 0-5 /hpf Urine Bacteria NONE /hpf Microscopic Urinalysis Comment CULT NOT INDICATED Nasal Screen MRSA (PCR) MRSA NOT DETECTED Test 08/07/17 05:40 08/08/17 16:07 08/09/17 03:48 White Blood Count 9.7 TH/MM3 Red Blood Count 4.06 MIL/MM3 Hemoglobin 12.5 GM/DL Hematocrit 37.8 % Mean Corpuscular Volume 93.1 FL Mean Corpuscular Hemoglobin 30.9 PG Mean Corpuscular Hemoglobin Concent 33.2 % Red Cell Distribution Width 15.6 % Platelet Count 286 TH/MM3 Mean Platelet Volume 8.4 FL Neutrophils (%) (Auto) 74.1 % Lymphocytes (%) (Auto) 13.9 % Monocytes (%) (Auto) 11.1 % Eosinophils (%) (Auto) 0.3 % Basophils (%) (Auto) 0.6 % Neutrophils # (Auto) 7.2 TH/MM3 Lymphocytes # (Auto) 1.3 TH/MM3 Monocytes # (Auto) 1.1 TH/MM3 Eosinophils # (Auto) 0.0 TH/MM3 Basophils # (Auto) 0.1 TH/MM3 CBC Comment DIFF FINAL Differential Comment Prothrombin Time 11.8 SEC Prothromb Time International Ratio 1.2 RATIO Activated Partial Thromboplast Time 28.7 SEC Blood Urea Nitrogen 28 MG/DL 24 MG/DL 23 MG/DL Creatinine 1.20 MG/DL 1.00 MG/DL 0.87 MG/DL Random Glucose 97 MG/DL 89 MG/DL 88 MG/DL Total Protein 7.3 GM/DL 5.8 GM/DL 5.1 GM/DL Albumin 3.1 GM/DL Calcium Level 8.1 MG/DL 7.1 MG/DL 6.4 MG/DL Phosphorus Level 3.9 MG/DL Magnesium Level 2.2 MG/DL Alkaline Phosphatase 164 U/L Aspartate Amino Transf (AST/SGOT) 61 U/L Alanine Aminotransferase (ALT/SGPT) 75 U/L Total Bilirubin 0.4 MG/DL Sodium Level 135 MEQ/L 136 MEQ/L 142 MEQ/L Potassium Level 4.7 MEQ/L 4.0 MEQ/L 4.3 MEQ/L Chloride Level 102 MEQ/L 103 MEQ/L 110 MEQ/L Carbon Dioxide Level 20.8 MEQ/L 24.1 MEQ/L 18.6 MEQ/L Anion Gap 12 MEQ/L 9 MEQ/L 13 MEQ/L Estimat Glomerular Filtration Rate 43 ML/MIN 53 ML/MIN 62 ML/MIN Lactic Acid Level 1.7 mmol/L Total Creatine Kinase 62 U/L Troponin I 0.02 NG/ML Triglycerides Level 79 MG/DL Cholesterol Level 174 MG/DL LDL Cholesterol 114 MG/DL HDL Cholesterol 44.5 MG/DL Cholesterol/HDL Ratio 3.91 RATIO Free Thyroxine 1.46 NG/DL Free Triiodothyronine (T3) pg/dL 2.30 PG/ML Protein Corrected Calcium 7.8 MG/DL 7.4 MG/DL Imaging Last Impressions Chest X-Ray 08/07/17 0000 Signed Impressions: Service Date/Time: Monday, August 07, 2017 04:06 - CONCLUSION: Unchanged left basilar consolidation likely atelectasis. Cardiomegaly. Demetrio Johnston Jr., MD Objective Remarks GENERAL: AWAKE ALERT AND ORIENTED X2 TO 3- TALKATIVE AND COOPERATIVE SKIN: Warm and dry. RIGHT HAND BLUISH/PURPLE HEAD: Atraumatic. Normocephalic. EYES: Pupils equal and round. No scleral icterus. No injection or drainage. EOMI ENT: No nasal bleeding or discharge. Mucous membranes pink and moist. TONGUE MIDLINE NECK: Trachea midline. No JVD. SUPPLE CARDIOVASCULAR: IRRegular rate and rhythm. S1, S2 NO S3 OR S4 RESPIRATORY: No accessory muscle use. Clear to auscultation. Breath sounds equal bilaterally. GASTROINTESTINAL: Abdomen soft, non-tender, nondistended. Hepatic and splenic margins not palpable. MUSCULOSKELETAL: Extremities without clubbing, cyanosis, or edema. No obvious deformities. NEUROLOGICAL: Awake and alert. No obvious cranial nerve deficits. Motor grossly within normal limits. 4 out of 5 muscle strength in the arms and legs. Normal speech. PURPLISH RIGHT HAND MORE THAN LEFT PSYCHIATRIC: INAppropriate mood and affect; insight and judgment ABnormal. NOT AT BASELINE PER RN Medications and IVs Current Medications Metoprolol Tartrate (Lopressor Inj) 5 mg ONCE ONCE IV PUSH Last administered on 08/06/17 15:53; Start 08/06/17 at 15:45; Stop 08/06/17 at 15:46; Status DC Sodium Chloride 250 ml @ 250 mls/hr BOLUS ONCE IV Last administered on 16:34; Start 08/06/17 at 16:30; Stop 08/06/17 at 17:29; Status DC Sodium Chloride 1,000 ml @ 100 mls/hr Q10H IV Last administered on 08/09/17 04:57; Start 08/06/17 at 16:30 Ondansetron HCl (Zofran Inj) 4 mg ONCE ONCE IV PUSH Last administered on 17:32; Start 08/06/17 at 17:15; Stop 08/06/17 at 17:16; Status DC Morphine Sulfate (Morphine Inj) 4 mg ONCE ONCE IV PUSH Last administered on 17:33; Start 08/06/17 at 17:15; Stop 08/06/17 at 17:16; Status DC Sodium Chloride (NS Flush) 2 ml UNSCH PRN IV FLUSH FLUSH AFTER USING IV ACCESS Last administered on 08/09/17at 04:58; Start 08/06/17 at 17:30 Sodium Chloride (NS Flush) 2 ml BID IV FLUSH Last administered on 08/08/17at 20: 17; Start 08/06/17 at 21:00 Acetaminophen (Tylenol) 650 mg Q6H PRN PO FEVER >101F; Start 08/06/17 at 17:30 Ondansetron HCl (Zofran Inj) 4 mg Q6H PRN IV PUSH NAUSEA OR VOMITING; Start at 17:30; Stop 08/06/17 at 17:49; Status DC Albuterol Sulfate (Albuterol Neb) 2.5 mg Q2HR NEB PRN INH SOB/WHEEZING; Start 08/06/17 at 17:30 Miscellaneous Information ([facility] [place] Nursing Information) 1 Q361D XX Last administered on 08/06/17at 23:00; Start 08/06/17 at 17:30 Senna/Docusate Sodium (Beatrice-Colace) 1 tab BID PO Last administered on at 20:16; Start 08/06/17 at 21:00 Magnesium Hydroxide (Milk Of Magnesia Liq) 30 ml Q12H PRN PO Mild constipation ; Start 08/06/17 at 17:30 Sennosides (Senokot) 17.2 mg Q12H PRN PO Moderate constipation; Start 08/06/17 at 17:30 Bisacodyl (Dulcolax Supp) 10 mg DAILY PRN RECTAL SEVERE CONSITIPATION; Start at 17:30 Lactulose (Lactulose Liq) 30 ml DAILY PRN PO SEVERE CONSITIPATION; Start at 17:30 Apixaban (Eliquis) 5 mg BID PO Last administered on 08/08/17at 20:16; Start at 21:00 Colesevelam HCl (Welchol) 625 mg TID PO Last administered on 08/08/17at 17:45; Start 08/06/17 at 18:00 Furosemide (Lasix) 40 mg DAILY PO Last administered on 08/08/17at 07:53; Start 08/07/17 at 09:00 Levothyroxine Sodium (Synthroid) 88 mcg DAILY@0600 PO Last administered on 08/09at 05:06; Start 08/07/17 at 06:00 Lisinopril (Prinivil) 10 mg DAILY PO Last administered on 08/08/17 07:52; Start 08/07/17 at 09:00 Tramadol HCl (Ultram) 50 mg Q6H PRN PO PAIN SCALE 1 TO 10 Last administered on 08/08/17at 07:54; Start 08/06/17 at 17:30 Famotidine (Pepcid) 10 mg BID PO Last administered on 08/08/17at 20:20; Start at 21:00 Ondansetron HCl (Zofran Odt) 4 mg Q6H PRN SL NAUSEA OR VOMITING; Start at 18:00 Diltiazem HCl 125 mg/Sodium Chloride 125 ml @ 5 mls/hr TITRATE PRN IV tachycardia Last administered on 08/06/17 19:21; Start 08/06/17 at 18:45 Diltiazem HCl (Cardizem Inj) 14 mg BOLUS ONCE IV PUSH ; Start 08/06/17 at 18:45 ; Stop 08/06/17 at 18:46; Status Cancel Diltiazem HCl (Cardizem Inj) 14 mg BOLUS ONCE IV PUSH Last administered on at 19:25; Start 08/06/17 at 19:30; Stop 08/06/17 at 19:31; Status DC Morphine Sulfate (Morphine Inj) 2 mg Q3H PRN IM Pain 6-10 Last administered on 08/07/17 07:07; Start 08/06/17 at 23:30; Status Future Hold Dexmedetomidine HCl 200 mcg/ Sodium Chloride 52 ml @ 3.01 mls/hr TITRATE PRN IV SEDATION Last administered on 08/06/17at 23:36; Start 08/06/17 at 23:30 Esmolol HCl/ Sodium Chloride 250 ml @ 17.55 mls/ hr TITRATE PRN IV Blood Pressure Management Last administered on 08/09/17 09:13; Start 08/07/17 at 08: 00 Diltiazem HCl (Cardizem) 60 mg Q6H PO Last administered on 08/08/17at 07:52; Start 08/07/17 at 14:00 Diltiazem HCl (Cardizem) 60 mg STAT ONCE PO Last administered on 08/07/17at 08: 25; Start 08/07/17 at 08:15; Stop 08/07/17 at 08:16; Status DC Acetaminophen/ Hydrocodone Bitart ([place] 5-325 Mg) 1 tab Q6H PRN PO PAIN 6-10 Last administered on 08/08/17at 02:44; Start 08/07/17 at 12:30 Morphine Sulfate (Morphine Inj) 0.5 mg ONCE ONCE IV PUSH Last administered on 08/07/17at 13:19; Start 08/07/17 at 12:30; Stop 08/07/17 at 12:31; Status DC Metoprolol Tartrate (Lopressor Inj) 2.5 mg Q4H PRN IV PUSH HR>105; Start at 15:30 Amiodarone HCl (Cordarone) 400 mg Q12HR PO Last administered on 08/08/17at 20:16 ; Start 08/07/17 at 21:00; Stop 08/12/17 at 20:59 Heparin Sodium/ Sodium Chloride 0 ml @ As Directed STK-MED ONCE .ROUTE ; Start 08/09/17 at 06:45; Stop 08/09/17 at 06:46; Status DC Isoproterenol HCl 0 ml @ As Directed STK-MED ONCE IV ; Start 08/09/17 at 06:59; Stop 08/09/17 at 07:00; Status DC Heparin Sodium/ Dextrose 250 ml @ As Directed STK-MED ONCE .ROUTE ; Start 08/09 at 06:59; Stop 08/09/17 at 07:00; Status DC Fentanyl Citrate (fentaNYL INJ) 200 mcg STK-MED ONCE .ROUTE ; Start 08/09/17 at 06:59; Stop 08/09/17 at 07:00; Status DC Midazolam HCl (Versed Inj) 2 mg STK-MED ONCE .ROUTE ; Start 08/09/17 at 06:59; Stop 08/09/17 at 07:00; Status DC Protamine Sulfate (Protamine Sulfate Inj) 50 mg STK-MED ONCE .ROUTE ; Start at 07:00; Stop 08/09/17 at 07:01; Status DC Heparin Sodium (Porcine) (Heparin Inj) 10,000 units STK-MED ONCE .ROUTE ; Start 08/09/17 at 07:00; Stop 08/09/17 at 07:01; Status DC Famotidine (Pepcid Inj) 20 mg STK-MED ONCE .ROUTE ; Start 08/09/17 at 07:00; Stop 08/09/17 at 07:01; Status DC A/P Assessment and Plan Atrial fibrillation/flutter with RVR -s/pCardizem drip for rate control -on Cardizem 60 mg p.o. every 6 hours and amiodarone 400mg po DAILY -Continue telemetry -cali Garcia, evaluated the patient and TO HAVE CARDIOVERSION TODAY -Eliquis for anticoagulation -Back on esmolol gtt due HR not well controlled. Hyponatremia -Chronic. Na 135 yesterday, no new lab today -Gentle IV fluid hydration -Monitor trend Chronic back pain -Continue home meds and morphine as needed, but reduce dose CHF - Chronic, stable. - Echo 06/25/16 w/ EF 30-35% - Continue Lisinopril AAA - 05/25/2017 CT Abdomen/Pelvis w/ focal aneurysmal dilatation of descending thoracic aorta 4.1cm and ascending aorta 4.2cm - no emergent intervention needed Hypothyroidism - Continue home dose levothyroxine 88 mcg daily DVT GI prophylaxis -Lexx's and SCDs -Eliquis -Heart healthy diet Discharge Planning continue to monitor in ICU. Pt also on esmolol gtt. CARDIOVERSION TODAY Discharge Planning PENDING CARDIAC IMPROVEMENT Jay Jacobo DO August 09, 2017 10:00
[2017-08-09] MEDS: LISINOPRIL 10 MG TAB PO SCH (10:16)
[2017-08-09] MEDS: FAMOTIDINE 20 MG TAB PO SCH ×2 (10:16→21:54)
[2017-08-09] MEDS: DOCUSATE SODIUM 50 MG/SENNA 8.6 MG TAB PO SCH ×2 (10:16→21:54)
[2017-08-09] MEDS: AMIODARONE 200 MG TAB PO SCH ×2 (10:16→21:54)
[2017-08-09] MEDS: FUROSEMIDE 40 MG TAB PO SCH (10:16)
[2017-08-09] MEDS: SODIUM CHLORIDE 0.9% FLUSH 10 ML FLUSH IV FLUSH SCH ×2 (10:17→21:54)
[2017-08-09] MEDS: APIXABAN 5 MG TABLET PO SCH ×2 (10:25→21:54)
[2017-08-09] MEDS ORDERED: CALCIUM CHLORIDE INJ 1 GM in SODIUM CHLORIDE 0.9% INJ 100 ML IV ONE (11:00)
--- NOTE | 2017-08-09 12:30 | HHI.PR ---
Subjective Remarks Doing ok Objective Vital Signs Date Time Temp Pulse Resp B/P (MAP) Pulse Ox O2 Delivery O2 Flow Rate FiO2 08/09/17 10:00 120 08/09/17 09:13 144 113/58 08/09/17 08:00 120 08/09/17 08:00 98.1 120 24 113/69 (84) 08/09/17 06:00 122 08/09/17 04:57 120 08/09/17 04:00 118 08/09/17 02:00 112 08/09/17 00:35 114 08/09/17 00:00 118 08/09/17 00:00 121 98/63 08/09/17 00:00 121 23 98/63 (75) 08/08/17 23:24 117 30 93/56 (68) 08/08/17 22:01 112 36 99/62 (74) 08/08/17 22:00 118 08/08/17 22:00 118 08/08/17 21:00 117 18 107/63 (78) 08/08/17 20:30 122 112/63 08/08/17 20:10 98.0 119 22 112/63 (79) 08/08/17 20:00 116 08/08/17 20:00 Nasal Cannula 3.00 08/08/17 18:00 124 08/08/17 17:45 112 104/53 08/08/17 16:00 120 08/08/17 16:00 97.0 120 18 111/67 (82) 91 08/08/17 14:00 129 I/O 08/08/17 08/08/17 08/08/17 08/09/17 08/09/17 08/09/17 06:59 14:59 22:59 06:59 14:59 22:59 Intake Total 1483 ml 250 ml 1720 ml 2280 ml Output Total 800 ml Balance 683 ml 250 ml 1720 ml 2280 ml Intake Oral 760 ml 480 ml 240 ml IV Total 723 ml 250 ml 1240 ml 2040 ml Output Urine Total 800 ml Stool Total 0 ml # Voids 3 3 # Bowel Movements 0 0 Result Diagram: 08/07/17 0540 08/09/17 0348 Imaging Alert, fully oriented, in bed Lungs: ventilated Heart: s1, S2 irregular, tachycardia Abdomen: soft, no mass Ext: no edema Last Impressions Chest X-Ray 08/07/17 0000 Signed Impressions: Service Date/Time: Monday, August 07, 2017 04:06 - CONCLUSION: Unchanged left basilar consolidation likely atelectasis. Cardiomegaly. Demetrio Johnston Jr., MD Current Medications Medications (Trade) Dose Ordered Sig/Sammy Route Start Time Stop Time Status Last Admin Sodium Chloride 1,000 ml @ 100 mls/hr Q10H IV 08/06/17 16:30 08/09/17 04:57 (NS Flush) 2 ml UNSCH PRN IV FLUSH 08/06/17 17:30 08/09/17 04:58 (NS Flush) 2 ml BID IV FLUSH 08/06/17 21:00 08/09/17 10:17 (Tylenol) 650 mg Q6H PRN PO 08/06/17 17:30 (Albuterol Neb) 2.5 mg Q2HR NEB PRN INH 08/06/17 17:30 ([facility] [place] Nursing Information) 1 Q361D XX 08/06/17 17:30 08/06/17 23:00 (Beatrice-Colace) 1 tab BID PO 08/06/17 21:00 08/09/17 10:16 (Milk Of Magnesia Liq) 30 ml Q12H PRN PO 08/06/17 17:30 (Senokot) 17.2 mg Q12H PRN PO 08/06/17 17:30 (Dulcolax Supp) 10 mg DAILY PRN RECTAL 08/06/17 17:30 (Lactulose Liq) 30 ml DAILY PRN PO 08/06/17 17:30 (Eliquis) 5 mg BID PO 08/06/17 21:00 08/09/17 10:25 (Welchol) 625 mg TID PO 08/06/17 18:00 08/08/17 17:45 (Lasix) 40 mg DAILY PO 08/07/17 09:00 08/09/17 10:16 (Synthroid) 88 mcg DAILY@0600 PO 08/07/17 06:00 08/09/17 05:06 (Prinivil) 10 mg DAILY PO 08/07/17 09:00 08/09/17 10:16 (Ultram) 50 mg Q6H PRN PO 08/06/17 17:30 08/08/17 07:54 (Pepcid) 10 mg BID PO 08/06/17 21:00 08/09/17 10:16 (Zofran Odt) 4 mg Q6H PRN SL 08/06/17 18:00 08/09/17 09:55 Diltiazem HCl 125 mg/Sodium Chloride 125 ml @ 5 mls/hr TITRATE PRN IV 08/06/17 18:45 08/06/17 19:21 (Morphine Inj) 2 mg Q3H PRN IM 08/06/17 23:30 Future Hold 08/07/17 07:07 Dexmedetomidine HCl 200 mcg/ Sodium Chloride 52 ml @ 3.01 mls/hr TITRATE PRN IV 08/06/17 23:30 08/06/17 23:36 Esmolol HCl/ Sodium Chloride 250 ml @ 17.55 mls/ hr TITRATE PRN IV 08/07/17 08:00 08/09/17 09:13 (Cardizem) 60 mg Q6H PO 08/07/17 14:00 08/08/17 07:52 ([place] 5-325 Mg) 1 tab Q6H PRN PO 08/07/17 12:30 08/08/17 02:44 (Lopressor Inj) 2.5 mg Q4H PRN IV PUSH 08/07/17 15:30 (Cordarone) 400 mg Q12HR PO 08/07/17 21:00 08/12/17 20:59 08/09/17 10:16 Assessment and Plan Problem List: (1) Atrial fibrillation with RVR ICD Codes: I48.91 - Unspecified atrial fibrillation Status: Acute Plan: In atrial fibrillation HR still high Ablation cancel today because patient receive eliquis last night Cardioversion vs ablation discussed again Patient wants to proceed with ablation Procedure will be performed Saturday AM Leo Pickard MD August 09, 2017 12:30
[2017-08-09 16:58] LABS: AUTOMATED NEUTROPHIL # 11.1 TH/MM3 (1.8-7.7); BASOPHIL % 0.2 % (0.0-2.0); HEMATOCRIT 33.1 % (35.0-46.0); HEMOGLOBIN 11.1 GM/DL (11.6-15.3); LYMPH % 5.9 % (9.0-44.0); LYMPHOCYTE # 0.7 TH/MM3 (1.0-4.8); MEAN CELL VOLUME 91.9 FL (80.0-100.0); MEAN CORPUSCULAR HEMOGLOBIN 30.9 PG (27.0-34.0); MEAN CORPUSCULAR HGB CONC 33.6 % (32.0-36.0); MEAN PLATELET VOLUME 8.5 FL (7.0-11.0); MONO % 4.1 % (0.0-8.0); MONOCYTE # 0.5 TH/MM3 (0-0.9); NEUT % 89.8 % (16.0-70.0); PLATELET COUNT 335 TH/MM3 (150-450); RED BLOOD COUNT 3.61 MIL/MM3 (4.00-5.30); RED CELL DISTRIBUTION WIDTH 15.7 % (11.6-17.2); WHITE BLOOD COUNT 12.4 TH/MM3 (4.0-11.0)
[2017-08-09 17:19] LABS: INTERNATIONAL NORMALIZED RATIO 1.4 RATIO; PROTHROMBIN TIME - PATIENT 14.3 SEC (9.8-11.6)
[2017-08-09 17:30] LABS: BICARBONATE 12.9 MEQ/L (21.0-32.0); CALCIUM 7.7 MG/DL (8.5-10.1); CREATININE 1.06 MG/DL (0.50-1.00); TROPONIN I 0.11 NG/ML (0.02-0.05)
--- NOTE | 2017-08-09 18:20 | RADRPT ---
EXAM DATE/TIME: 08/09/2017 17:52 [facility] COMPARISON: No previous studies available for comparison. INDICATIONS : Altered mental status. RADIATION DOSE: 37.25 CTDIvol (mGy) ; Patient motion MEDICAL HISTORY : Cardiovascular disease. Hypertension. Carcinoma, not otherwise specified. SURGICAL HISTORY : None. ENCOUNTER: Initial ACUITY: 1 day PAIN SCALE: 5/10 LOCATION: cranial TECHNIQUE: Multiple contiguous axial images were obtained of the head. Using automated exposure control and adj ustment of the mA and/or kV according to patient size, radiation dose was kept as low as reasonably a chievable to obtain optimal diagnostic quality images. DICOM format image data is available electro nically for review and comparison. FINDINGS: CEREBRUM: The ventricles are normal for age. No evidence of midline shift, mass lesion, hemorrhage or acute in farction. No extra-axial fluid collections are seen. POSTERIOR FOSSA: The cerebellum and brainstem are intact. The 4th ventricle is midline. The cerebellopontine angle i s unremarkable. EXTRACRANIAL: The visualized portion of the orbits is intact. SKULL: The calvaria is intact. No evidence of skull fracture. CONCLUSION: No acute disease. Abdelrahman Leary MD on August 09, 2017 at 18:16 Board Certified Radiologist. This report was verified electronically.
[2017-08-09] MEDS ORDERED: IOHEXOL 350 MG/ML 10 ML VIAL (for RAD DIAG) IVCONTRAST ONE (18:22)
--- NOTE | 2017-08-09 19:00 | RADRPT ---
EXAM DATE/TIME: 08/09/2017 17:52 [facility] COMPARISON: CT BRAIN W/O CONTRAST, August 09, 2017, 17:52. INDICATIONS : Altered mental status. IV CONTRAST: 75 cc Omnipaque 350 (iohexol) IV ; Cumulative dose for multiple exams. RADIATION DOSE: 26.35 CTDIvol (mGy) ; Combined studies MEDICAL HISTORY : Cardiovascular disease. Hypertension. Carcinoma, not otherwise specified. SURGICAL HISTORY : None. ENCOUNTER: Initial ACUITY: 1 day PAIN SCALE: 0/10 LOCATION: cranial TECHNIQUE: Volumetric scanning was performed using a multi-row detector CT scanner. The data was post processed with a variety of visualization algorithms including full volume maximum intensity projection, multi -planar sliding thin slab reformation, curved planar reformation, and surface rendering techniques. Using automated exposure control and adjustment of the mA and/or kV according to patient size, radiat ion dose was kept as low as reasonably achievable to obtain optimal diagnostic quality images. DICO M format image data is available electronically for review and comparison. FINDINGS: There is excellent visualization of the major intracranial arteries out to the second-order branch ve ssels. There is no evidence for vessel truncation or stenosis, and no evidence for vascular malforma tion. There is mild fusiform aneurysmal dilatation of the left cavernous portion of the internal pederson tid artery measuring 0.7 cm in diameter. The more normal-appearing right cavernous internal carotid a rtery measures 0.5 cm in diameter. The distal flow appears normal. There is no evidence of obstructio n. CONCLUSION: Mild fusiform dilatation of the cavernous portion of the internal carotid artery on the left. The mo re distal flow is normal. Abdelrahman Leary MD on August 09, 2017 at 18:55 Board Certified Radiologist. This report was verified electronically.
--- NOTE | 2017-08-09 19:03 | RADRPT ---
EXAM DATE/TIME: 08/09/2017 17:52 [facility] COMPARISON: No previous studies available for comparison. INDICATIONS : Altered mental status. IV CONTRAST: 75 cc Omnipaque 350 (iohexol) IV RADIATION DOSE: 26.35 CTDIvol (mGy) MEDICAL HISTORY : Cardiovascular disease. Carcinoma, not otherwise specified. Hypertension. SURGICAL HISTORY : None. ENCOUNTER: Initial ACUITY: 1 day PAIN SCALE: 5/10 LOCATION: Bilateral neck Elevated flow velocities and ICA/CCA ratios have been found to correlate with increased degrees of vessel stenosis, calculated as percentage of diameter relative to a normal segment of distal ICA/CCA. TECHNIQUE: Volumetric scanning was performed using a multirow detector CT scanner. The data was post processed with a variety of visualization algorithms including full-volume maximum intensity projection, multip lanar sliding thin-slab reformation, curved-planar reformation, and surface-rendering techniques. Us ing automated exposure control and adjustment of the mA and/or kV according to patient size, radiatio n dose was kept as low as reasonably achievable to obtain optimal diagnostic quality images. DICOM f ormat image data is available electronically for review and comparison. FINDINGS: AORTIC ARCH: There is a three-vessel origin of the great vessels from the aorta. No evidence of ostial narrowing. There is minimal narrowing of the proximal left subclavian artery. RIGHT CAROTID: The common carotid artery is intact. There is calcification at the carotid bulb region without signif icant stenosis. The internal carotid artery is tortuous in the upper neck region. LEFT CAROTID: The common carotid artery is intact. There is minimal calcification at the carotid bulb region witho ut significant stenosis. VERTEBRALS: The vertebral arteries have a symmetric diameter. No stenotic lesions are seen. CONCLUSION: No significant stenosis is seen. Abdelrahman Leary MD on August 09, 2017 at 18:58 Board Certified Radiologist. This report was verified electronically.
[2017-08-09] MEDS ORDERED: DEXT 5%-NACL 0.45% 500 ML INJ 500 ML IV ONE (20:00)
[2017-08-09] MEDS ORDERED: SODIUM BICARBONATE 8.4% INJ 50 MEQ/50 ML SYR IV PUSH ONE ×2 (21:15)
--- NOTE | 2017-08-09 21:52 | RADRPT ---
EXAM DATE/TIME: 08/09/2017 20:32 [facility] COMPARISON: CHEST SINGLE AP, August 07, 2017, 4:06. INDICATIONS : Shortness of breath. MEDICAL HISTORY : Gastroesophageal reflux disease. Thoracic aneurysm. colitis. Rectal mass. Hypertension. Atrial fibril lation. Coronary artery disease. SURGICAL HISTORY : Kyphoplasty. ENCOUNTER: Initial ACUITY: 1 day PAIN SCORE: Non-responsive. LOCATION: Bilateral chest FINDINGS: The heart size is enlarged. There is hazy density seen over lungs bilaterally likely secondary to giuseppe ateral effusions. Some accompanying atelectasis and/or consolidation at the bases needs to be conside red. CONCLUSION: 1. Cardiomegaly. 2. Hazy density over the lungs bilaterally likely related to effusions being worse on the right. Abdelrahman Leary MD on August 09, 2017 at 21:49 Board Certified Radiologist. This report was verified electronically.
--- NOTE | 2017-08-09 21:56 | RADRPT ---
EXAM DATE/TIME: 08/09/2017 20:35 [facility] COMPARISON: CT ABDOMEN & PELVIS W CONTRAST, May 25, 2017, 18:06. ABDOMEN KUB ONLY, August 12, 2015, 17:40. INDICATIONS : Distention. MEDICAL HISTORY : Gastroesophageal reflux disease. Thoracic aneurysm. colitis. Rectal mass. Hypertension. Atrial fibril lation. Coronary artery disease. SURGICAL HISTORY : Kyphoplasty. ENCOUNTER: Initial ACUITY: 1 day PAIN SCORE: Non-responsive. LOCATION: Bilateral abdomen. FINDINGS: Supine view of the abdomen was performed. There is mild distention of the transverse colon. Thickene d small bowel dilatation is not seen. No abnormal masses, calcifications, or organomegaly is seen. Contrast is seen within the bladder. 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 Pa wernernt is status post vertebroplasty at L2. There is a compression deformity seen at T12. This was pre sent on the prior exam from 2015. CONCLUSION: 1. Mild nonspecific colonic dilatation. 2. Status post vertebroplasty of L2. 3. 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 4. 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 Abdelrahman Leary MD on August 09, 2017 at 21:51 Board Certified Radiologist. This report was verified electronically.
[2017-08-09] MEDS ORDERED: RESP: LEVALBUTEROL HYDROCHLORIDE 1.25 MG/3 ML NEB (SCH) NEB (22:00)
[2017-08-09 22:10] LABS: AUTOMATED NEUTROPHIL # 10.3 TH/MM3 (1.8-7.7); BASOPHIL % 0.1 % (0.0-2.0); HEMATOCRIT 30.6 % (35.0-46.0); LYMPH % 5.4 % (9.0-44.0); LYMPHOCYTE # 0.6 TH/MM3 (1.0-4.8); MEAN CELL VOLUME 92.9 FL (80.0-100.0); MEAN CORPUSCULAR HEMOGLOBIN 30.5 PG (27.0-34.0); MEAN CORPUSCULAR HGB CONC 32.8 % (32.0-36.0); MEAN PLATELET VOLUME 9.2 FL (7.0-11.0); MONO % 4.4 % (0.0-8.0); MONOCYTE # 0.5 TH/MM3 (0-0.9); NEUT % 90.1 % (16.0-70.0); PLATELET COUNT 356 TH/MM3 (150-450); RED BLOOD COUNT 3.29 MIL/MM3 (4.00-5.30); RED CELL DISTRIBUTION WIDTH 16.4 % (11.6-17.2); WHITE BLOOD COUNT 11.5 TH/MM3 (4.0-11.0)
--- NOTE | 2017-08-09 22:51 | RADRPT ---
EXAM DATE/TIME: 08/09/2017 22:20 [facility] COMPARISON: CT ABDOMEN & PELVIS W/O CONTRAST, June 23, 2015, 12:31. INDICATIONS : Distention. ORAL CONTRAST: No oral contrast ingested. RADIATION DOSE: 15.39 CTDIvol (mGy) MEDICAL HISTORY : Ulcerative colitis. Hypertension. Osteoporosis.GERD. Rectal mass. SURGICAL HISTORY : Kyphoplasty. ENCOUNTER: Initial ACUITY: 1 day PAIN SCALE: 5/10 LOCATION: abdomen TECHNIQUE: Volumetric scanning of the abdomen and pelvis was performed. Using automated exposure control and ad justment of the mA and/or kV according to patient size, radiation dose was kept as low as reasonably achievable to obtain optimal diagnostic quality images. DICOM format image data is available electro nically for review and comparison. FINDINGS: LOWER LUNGS: There is a moderate right pleural effusion and a mild left pleural effusion with accompanying areas o f atelectasis or consolidation of the lower lobes. LIVER: Homogeneous density without lesion. There is no dilation of the biliary tree. No calcified gallston es. SPLEEN: Normal size without lesion. PANCREAS: Within normal limits. KIDNEYS: There is contrast within the kidneys bilaterally from prior contrast administration. ADRENAL GLANDS: Within normal limits. VASCULAR: There is no aortic aneurysm. Arterial calcifications are present. BOWEL/MESENTERY: The stomach, small bowel, and colon demonstrate no acute abnormality. There is no free intraperitone al air. There is a mild amount of fluid in the posterior lower pelvic peritoneal cavity/cul-de-sac. ABDOMINAL WALL: Within normal limits. RETROPERITONEUM: There is no lymphadenopathy. BLADDER: There is a posterior right lateral bladder diverticulum. Contrast is seen within the urinary bladder from prior administration. REPRODUCTIVE: Within normal limits. INGUINAL: There is a small amount of fluid within the right inguinal canal consistent with a potential hernia. No bowel seen in the inguinal regions. There is prominent fat seen in the inguinal canals bilaterally . MUSCULOSKELETAL: The patient status post vertebroplasty at L2. There is a severe compression deformity at T12. This wa s present on the prior exam. There is degenerative change in the lower lumbar spine. The disc. The ed susan within the subcutaneous fat likely from anasarca. CONCLUSION: 1. Moderate right pleural effusion and mild left pleural effusion with accompanying atelectasis. 2. Mild amount of free fluid in the lower pelvic peritoneal cavity/cul-de-sac. 3. Edema seen throughout the subcutaneous tissues likely from anasarca. 4. Bladder diverticulum. 5. Contrast in the bladder and kidneys from prior administration. Abdelrahman Leary MD on August 09, 2017 at 22:44 Board Certified Radiologist. This report was verified electronically.
[2017-08-10] VITALS (18 sets, daily range): BP systolic 78–138; BP diastolic 48–67; PULSE 73–127; RESP 20–39; TEMP 97.6–98.3; O2SAT 79–86
[2017-08-10] MEDS ORDERED: RESP: LEVALBUTEROL HYDROCHLORIDE 1.25 MG/3 ML NEB (PRN) NEB (00:15)
[2017-08-10 01:33] LABS: ALBUMIN 2.8 GM/DL (3.4-5.0); BICARBONATE 17.4 MEQ/L (21.0-32.0); CALCIUM 7.2 MG/DL (8.5-10.1); CREATININE 1.19 MG/DL (0.50-1.00); TOTAL BILIRUBIN ADULT 0.4 MG/DL (0.2-1.0); TOTAL PROTEIN 5.6 GM/DL (6.4-8.2); TROPONIN I 0.49 NG/ML (0.02-0.05)
--- NOTE | 2017-08-10 04:55 | HHI.PR ---
Addendum to Inpatient Note Addendum Reason: Additional Documentation Additional Information Over the course of the night patient has been labile with HR and BP. 2029: Patient evaluated at bedside, states she just does not feel well. Course breath sounds 2049: ABG results and shows bicarb 14, ph 7.29, 2 amps of bicarb ordered and stat labs, discussed with Dr. Quick at this time Due to hemolyzation on the first set of labs they had to be redrawn 2129 xopenex nebs ordered for wheezing Up until 4:15 am patient was stable on esmolol drip, RN paged and states patient is hypotensive and drip has been placed on hold. 4:30 RN states she restarted the drip, map is [address] Quick at this time who is agreed to place a central line in order to send labs and possibility of vasopressors. Due to patient's CHF and pulmonary effusions, boluses have been limited. 5:15am Central line placed by Dr. Quick, ABG is much improved, labs, chest xray, digoxin and NS bolus ordered by Dr. Quick. Will follow up on the pending labs and tests. Care discussed with dr. Monzon as well. Maricruz Oneil August 10, 2017 04:55
[2017-08-10] MEDS ORDERED: SODIUM CHLORID 0.9% 500 ML INJ 500 ML IV ONE (05:15)
[2017-08-10] MEDS ORDERED: DIGOXIN 0.25 MG TAB PO ONE (05:15)
[2017-08-10] MEDS ORDERED: DIGOXIN 0.5 MG/2 ML VIAL IV PUSH ONE (05:15)
--- NOTE | 2017-08-10 05:17 | PD.PROCEDR ---
Central Line Procedure REASON FOR PROCEDURE Central venous access PROCEDURE PERFORMED Central line placement: RIJ central line placement CONSENT Informed consent for procedure was obtained from . The risks and benefits of the procedure were discussed to include but limited to bleeding, clot formation, infection, and even . ANESTHESIA Local injection of 1% Lidocaine DESCRIPTION OF THE PROCEDURE The patient was placed in supine, mild Trendelenburg position. The area was exposed and cleansed with ChloraPrep, times two. Large sterile drape was used to cover the patient, with the site exposed, under sterile conditions including cap, face mask, sterile gown, and sterile gloves. On single attempt, the introducer needle was inserted with negative pressure in syringe and venous flash was obtained. The guide wire was then advanced without any restriction and the needle was removed. The dilator was used without any complications. Using Seldinger technique the 20 cm 7F trip[le lumen catheter was advanced over the guide wire to a depth of 17 centimeters. The guide wire was removed. All ports were aspirated with dark venous blood return and flushed easily with sterile saline. All ports were capped. Antibiotic disc was placed around central line at puncture site. The central line was secured to the skin with two interrupted 2.0 silk sutures. The area was bandaged with sterile see- through central line bandage. RADIOLOGICAL DATA Ultrasound guidance was used to locate RIJ. Doppler/color flow was used to confirm venous flow. COMPLICATIONS: No apparent complications ESTIMATED BLOOD LOSS: Less than 1 cc. Desi Quick MD August 10, 2017 05:17
[2017-08-10] MEDS ORDERED: SODIUM BICARBONATE 8.4% INJ 50 MEQ/50 ML SYR IV PUSH ONE (05:30)
[2017-08-10] MEDS: LEVOTHYROXINE SODIUM 88 MCG TAB PO SCH (05:34)
[2017-08-10] MEDS: DILTIAZEM HCL 60 MG TAB PO SCH ×4 (05:37→19:37)
--- NOTE | 2017-08-10 05:41 | RADRPT ---
EXAM DATE/TIME: 08/10/2017 05:26 [facility] COMPARISON: CHEST SINGLE AP, August 09, 2017, 20:32. INDICATIONS : Central line placement MEDICAL HISTORY : Gastroesophageal reflux disease. Thoracic aneurysm. colitis. Rectal mass. Hypertension. Atrial fibril lation. Coronary artery disease. SURGICAL HISTORY : Kyphoplasty ENCOUNTER: Initial ACUITY: 1 day PAIN SCORE: Non-responsive. LOCATION: Bilateral chest FINDINGS: Cardiomegaly. Right central line in superior vena cava. Basilar airspace disease and effusions stable . CONCLUSION: 1. Right central line in superior vena cava without pneumothorax. José Palacio MD on August 10, 2017 at 5:39 Board Certified Radiologist. This report was verified electronically.
[2017-08-10 07:14] LABS: AUTOMATED NEUTROPHIL # 9.5 TH/MM3 (1.8-7.7); BASOPHIL % 0.2 % (0.0-2.0); HEMATOCRIT 32.1 % (35.0-46.0); HEMOGLOBIN 10.6 GM/DL (11.6-15.3); LYMPH % 5.3 % (9.0-44.0); LYMPHOCYTE # 0.6 TH/MM3 (1.0-4.8); MEAN CELL VOLUME 91.6 FL (80.0-100.0); MEAN CORPUSCULAR HEMOGLOBIN 30.3 PG (27.0-34.0); MEAN CORPUSCULAR HGB CONC 33.1 % (32.0-36.0); MEAN PLATELET VOLUME 8.2 FL (7.0-11.0); NEUT % 85.5 % (16.0-70.0); PLATELET COUNT 346 TH/MM3 (150-450); WHITE BLOOD COUNT 11.1 TH/MM3 (4.0-11.0)
[2017-08-10] MEDS: SODIUM CHLOR 0.9% 1000 ML INJ 1,000 ML IV SCH (07:18)
[2017-08-10 07:27] LABS: ALBUMIN 2.7 GM/DL (3.4-5.0); ALKALINE PHOSPHATASE 101 U/L (45-117); ALT (GPT) 58 U/L (10-53); AST (GOT) 37 U/L (15-37); BLOOD UREA NITROGEN 34 MG/DL (7-18); CALCIUM 7.1 MG/DL (8.5-10.1); CHLORIDE 110 MEQ/L (98-107); CREATININE 1.22 MG/DL (0.50-1.00); FREE T4 1.14 NG/DL (0.76-1.46); GLOMERULAR FILTRATION RATE 42 ML/MIN (>89); GLUCOSE,RANDOM 119 MG/DL (74-106); PHOSPHORUS 2.6 MG/DL (2.5-4.9); SODIUM (NA) 144 MEQ/L (136-145); TOTAL BILIRUBIN ADULT 0.4 MG/DL (0.2-1.0); TOTAL PROTEIN 5.4 GM/DL (6.4-8.2); TROPONIN I 0.53 NG/ML (0.02-0.05)
--- NOTE | 2017-08-10 10:33 | HHI.PR ---
Subjective Remarks 86-year-old female presented to emergency department at [facility] [facility] because of fast heart rate. She has a history of atrial fibrillation. She has had 2 ablations done in the past. She had cardioversion done last summer. She is on Eliquis. She is not on any medication for rate control now. The patient has been having a hard fast heart rate for several days at least. She denies any chest pain. She had an EKG in May of this year which showed sinus rhythm. She takes lisinopril for high blood pressure. She does have chronic pain and is on tramadol. Also hypothyroidism on levothyroxine. 08/07: Heart rate remains from 90-130 on Cardizem infusion 15 mg/h. still remains what appears to be a flutter with RVR. Due to Cardizem infusion shortage, will start Cardizem 60 mg p.o. every 6 hours and attempt weaning Cardizem IV. For rate control use esmolol if needed as patient is allergic to Amio - Pt seen earlier this morning around 8:15am Pt doesn't feel any palpitations. Pt denies any CP/worsening SOB/n/v complains that bed is not very comfortable and also the tape from the pulse ox bothering her discussed w RN, pt was restarted on the esmolol gtt, she did get her amiodarone po w not much improvement of her HR 08-09 is HYPOTENSIVE TODAY WILL GIVE A NS BOLUS COMPLAINS OF RIGHT HAND TINGLING AND RIGHT HAD IS PURPLISH/BLUISH DW RN AND PT TO HAVE CARDIOVERSION TODAY REPLACE CALCIUM FLUID BOLUS 08-10 NOTES FROM LAST NIGHT REMOVED HAD RIGHT SIDE CENTRAL LINE THAT THE PATIENT PULLED OUT ON HER OWN HAS SOFT RESTRAINTS NOW NEEDS A PICC FOR IV ACCESS DW RN AND PT STILL REMAINS CONFUSED RIGHT ARM WITH BETTER FLOW AT THIS TIME Objective Vitals Vital Signs Date Time Temp Pulse Resp B/P (MAP) Pulse Ox O2 Delivery O2 Flow Rate FiO2 08/10/17 09:00 116 109/58 08/10/17 08:36 Nasal Cannula 2.00 08/10/17 07:30 122 98/73 08/10/17 06:00 125 08/10/17 04:00 117 08/10/17 04:00 97.6 117 20 80/53 (62) 08/10/17 02:00 120 08/10/17 00:00 97.6 127 24 92/57 (69) 86 08/10/17 00:00 127 08/09/17 22:58 122 92/54 08/09/17 22:57 122 97/67 08/09/17 22:00 126 08/09/17 20:00 119 08/09/17 20:00 97.9 119 20 08/09/17 20:00 119 99/46 08/09/17 18:00 132 08/09/17 16:00 97.7 127 26 104/51 (68) 08/09/17 16:00 127 08/09/17 15:35 134 118/72 08/09/17 14:00 135 08/09/17 12:00 130 08/09/17 12:00 96.3 130 19 87/60 (69) 64 I/O 08/09/17 08/09/17 08/09/17 08/10/17 08/10/17 08/10/17 07:00 15:00 23:00 07:00 15:00 23:00 Intake Total 2280 ml 1840 ml 990 ml 500 ml Output Total 300 ml Balance 2280 ml 1840 ml 990 ml 200 ml Intake Oral 240 ml 240 ml 0 ml IV Total 2040 ml 1840 ml 750 ml 500 ml Output Urine Total 300 ml Bladder Scan Volume Amount 424 ml # Voids 3 3 1 # Bowel Movements 0 0 Result Diagram: 08/10/17 0625 08/10/17 0625 Other Results Laboratory Tests Test 08/08/17 16:07 08/09/17 03:48 08/09/17 16:25 08/09/17 16:31 Blood Urea Nitrogen 24 MG/DL 23 MG/DL Creatinine 1.00 MG/DL 0.87 MG/DL Random Glucose 89 MG/DL 88 MG/DL Total Protein 5.8 GM/DL 5.1 GM/DL Calcium Level 7.1 MG/DL 6.4 MG/DL Sodium Level 136 MEQ/L 142 MEQ/L Potassium Level 4.0 MEQ/L 4.3 MEQ/L Chloride Level 103 MEQ/L 110 MEQ/L Carbon Dioxide Level 24.1 MEQ/L 18.6 MEQ/L Anion Gap 9 MEQ/L 13 MEQ/L Estimat Glomerular Filtration Rate 53 ML/MIN 62 ML/MIN Protein Corrected Calcium 7.8 MG/DL 7.4 MG/DL Blood Gas Puncture Site RT RADIAL Blood Gas Patient Temperature 98.6 Blood Gas HCO3 14 mmol/L Blood Gas Base Excess -11.0 mmol/L Blood Gas Oxygen Saturation 96 % Arterial Blood pH 7.31 Arterial Blood Partial Pressure CO2 29 mmHg Arterial Blood Partial Pressure O2 114 mmHg Arterial Blood Oxygen Content 15.2 Vol % Arterial Blood Carboxyhemoglobin 0.6 % Arterial Blood Methemoglobin 0.9 % Blood Gas Hemoglobin 11.1 G/DL Oxygen Delivery Device NASAL CANNULA Blood Gas Liter Flow 3 L/M White Blood Count 12.4 TH/MM3 Red Blood Count 3.61 MIL/MM3 Hemoglobin 11.1 GM/DL Hematocrit 33.1 % Mean Corpuscular Volume 91.9 FL Mean Corpuscular Hemoglobin 30.9 PG Mean Corpuscular Hemoglobin Concent 33.6 % Red Cell Distribution Width 15.7 % Platelet Count 335 TH/MM3 Mean Platelet Volume 8.5 FL Neutrophils (%) (Auto) 89.8 % Lymphocytes (%) (Auto) 5.9 % Monocytes (%) (Auto) 4.1 % Eosinophils (%) (Auto) 0.0 % Basophils (%) (Auto) 0.2 % Neutrophils # (Auto) 11.1 TH/MM3 Lymphocytes # (Auto) 0.7 TH/MM3 Monocytes # (Auto) 0.5 TH/MM3 Eosinophils # (Auto) 0.0 TH/MM3 Basophils # (Auto) 0.0 TH/MM3 CBC Comment DIFF FINAL Differential Comment Prothrombin Time 14.3 SEC Prothromb Time International Ratio 1.4 RATIO Activated Partial Thromboplast Time 33.8 SEC Fibrinogen 360 mg/dL Test 08/09/17 16:51 08/09/17 20:53 08/09/17 21:48 08/09/17 23:11 Blood Urea Nitrogen 33 MG/DL Creatinine 1.06 MG/DL Random Glucose 109 MG/DL Calcium Level 7.7 MG/DL Sodium Level 138 MEQ/L Potassium Level 4.3 MEQ/L Chloride Level 110 MEQ/L Carbon Dioxide Level 12.9 MEQ/L Anion Gap 15 MEQ/L Estimat Glomerular Filtration Rate 49 ML/MIN Total Creatine Kinase 119 U/L Troponin I 0.11 NG/ML Blood Gas Puncture Site LT BRACHIAL Blood Gas Patient Temperature 98.6 Blood Gas HCO3 14 mmol/L Blood Gas Base Excess -11.4 mmol/L Blood Gas Oxygen Saturation 95 % Arterial Blood pH 7.29 Arterial Blood Partial Pressure CO2 30 mmHg Arterial Blood Partial Pressure O2 97 mmHg Arterial Blood Oxygen Content 14.8 Vol % Arterial Blood Carboxyhemoglobin 0.7 % Arterial Blood Methemoglobin 1.0 % Blood Gas Hemoglobin 11.0 G/DL Oxygen Delivery Device NASAL CANNULA Blood Gas Liter Flow 3 L/M Blood Gas Inspired Oxygen 32 % White Blood Count 11.5 TH/MM3 Red Blood Count 3.29 MIL/MM3 Hemoglobin 10.0 GM/DL Hematocrit 30.6 % Mean Corpuscular Volume 92.9 FL Mean Corpuscular Hemoglobin 30.5 PG Mean Corpuscular Hemoglobin Concent 32.8 % Red Cell Distribution Width 16.4 % Platelet Count 356 TH/MM3 Mean Platelet Volume 9.2 FL Neutrophils (%) (Auto) 90.1 % Lymphocytes (%) (Auto) 5.4 % Monocytes (%) (Auto) 4.4 % Eosinophils (%) (Auto) 0.0 % Basophils (%) (Auto) 0.1 % Neutrophils # (Auto) 10.3 TH/MM3 Lymphocytes # (Auto) 0.6 TH/MM3 Monocytes # (Auto) 0.5 TH/MM3 Eosinophils # (Auto) 0.0 TH/MM3 Basophils # (Auto) 0.0 TH/MM3 CBC Comment DIFF FINAL Differential Comment Lactic Acid Level 1.5 mmol/L Test 08/10/17 00:27 08/10/17 04:44 08/10/17 06:25 Blood Urea Nitrogen 34 MG/DL 34 MG/DL Creatinine 1.19 MG/DL 1.22 MG/DL Random Glucose 130 MG/DL 119 MG/DL Total Protein 5.6 GM/DL 5.4 GM/DL Albumin 2.8 GM/DL 2.7 GM/DL Calcium Level 7.2 MG/DL 7.1 MG/DL Alkaline Phosphatase 106 U/L 101 U/L Aspartate Amino Transf (AST/SGOT) 40 U/L 37 U/L Alanine Aminotransferase (ALT/SGPT) 60 U/L 58 U/L Total Bilirubin 0.4 MG/DL 0.4 MG/DL Sodium Level 140 MEQ/L 144 MEQ/L Potassium Level 4.4 MEQ/L 4.2 MEQ/L Chloride Level 107 MEQ/L 110 MEQ/L Carbon Dioxide Level 17.4 MEQ/L 21.0 MEQ/L Anion Gap 16 MEQ/L 13 MEQ/L Estimat Glomerular Filtration Rate 43 ML/MIN 42 ML/MIN Protein Corrected Calcium 8.0 MG/DL 8.0 MG/DL Troponin I 0.49 NG/ML 0.53 NG/ML Blood Gas Puncture Site LT RADIAL Blood Gas Patient Temperature 98.6 Blood Gas HCO3 17 mmol/L Blood Gas Base Excess -8.0 mmol/L Blood Gas Oxygen Saturation 95 % Arterial Blood pH 7.34 Arterial Blood Partial Pressure CO2 31 mmHg Arterial Blood Partial Pressure O2 101 mmHg Arterial Blood Oxygen Content 15.1 Vol % Arterial Blood Carboxyhemoglobin 0.6 % Arterial Blood Methemoglobin 1.1 % Blood Gas Hemoglobin 11.1 G/DL Oxygen Delivery Device NASAL CANNULA Blood Gas Inspired Oxygen 3 % White Blood Count 11.1 TH/MM3 Red Blood Count 3.50 MIL/MM3 Hemoglobin 10.6 GM/DL Hematocrit 32.1 % Mean Corpuscular Volume 91.6 FL Mean Corpuscular Hemoglobin 30.3 PG Mean Corpuscular Hemoglobin Concent 33.1 % Red Cell Distribution Width 16.0 % Platelet Count 346 TH/MM3 Mean Platelet Volume 8.2 FL Neutrophils (%) (Auto) 85.5 % Lymphocytes (%) (Auto) 5.3 % Monocytes (%) (Auto) 9.0 % Eosinophils (%) (Auto) 0.0 % Basophils (%) (Auto) 0.2 % Neutrophils # (Auto) 9.5 TH/MM3 Lymphocytes # (Auto) 0.6 TH/MM3 Monocytes # (Auto) 1.0 TH/MM3 Eosinophils # (Auto) 0.0 TH/MM3 Basophils # (Auto) 0.0 TH/MM3 CBC Comment DIFF FINAL Differential Comment Phosphorus Level 2.6 MG/DL Magnesium Level 2.0 MG/DL Free Thyroxine 1.14 NG/DL Thyroid Stimulating Hormone 3rd Gen 7.000 uIU/ML Imaging Last Impressions Chest X-Ray 08/10/17 0000 Signed Impressions: Service Date/Time: Thursday, August 10, 2017 05:26 - CONCLUSION: 1. Right central line in superior vena cava without pneumothorax. José Palacio MD Head CT 08/09/17 1639 Signed Impressions: Service Date/Time: Wednesday, August 09, 2017 17:52 - CONCLUSION: No acute disease. Abdelrahman Leary MD Head CTA 08/09/17 1624 Signed Impressions: Service Date/Time: Wednesday, August 09, 2017 17:52 - CONCLUSION: Mild fusiform dilatation of the cavernous portion of the internal carotid artery on the left. The more distal flow is normal. Abdelrahman Leary MD Neck CTA 08/09/17 0000 Signed Impressions: Service Date/Time: Wednesday, August 09, 2017 17:52 - CONCLUSION: No significant stenosis is seen. Abdelrahman Leary MD Abdomen/Pelvis CT 08/09/17 0000 Signed Impressions: Service Date/Time: Wednesday, August 09, 2017 22:20 - CONCLUSION: 1. Moderate right pleural effusion and mild left pleural effusion with accompanying atelectasis. 2. Mild amount of free fluid in the lower pelvic peritoneal cavity/cul-de-sac. 3. Edema seen throughout the subcutaneous tissues likely from anasarca. 4. Bladder diverticulum. 5. Contrast in the bladder and kidneys from prior administration. Abdelrahman Leary MD Abdomen X-Ray 08/09/17 0000 Signed Impressions: Service Date/Time: Wednesday, August 09, 2017 20:35 - CONCLUSION: 1. Mild nonspecific colonic dilatation. 2. Status post vertebroplasty of L2. 3. 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 4. 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 Abdelrahman Leary MD Objective Remarks GENERAL: AWAKE ALERT AND ORIENTED X2 - TALKATIVE AND COOPERATIVE SKIN: Warm and dry. RIGHT HAND BLUISH/PURPLE HEAD: Atraumatic. Normocephalic. EYES: Pupils equal and round. No scleral icterus. No injection or drainage. EOMI ENT: No nasal bleeding or discharge. Mucous membranes pink and moist. TONGUE MIDLINE NECK: Trachea midline. No JVD. SUPPLE CARDIOVASCULAR: IRRegular rate and rhythm. S1, S2 NO S3 OR S4 RESPIRATORY: No accessory muscle use. Clear to auscultation. Breath sounds equal bilaterally. GASTROINTESTINAL: Abdomen soft, non-tender, nondistended. Hepatic and splenic margins not palpable. MUSCULOSKELETAL: Extremities without clubbing, cyanosis, or edema. No obvious deformities. NEUROLOGICAL: Awake and alert. No obvious cranial nerve deficits. Motor grossly within normal limits. 4 out of 5 muscle strength in the arms and legs. Normal speech. PURPLISH RIGHT HAND MORE THAN LEFT HAS IMPROVED SINCE YESTERDAY PSYCHIATRIC: INAppropriate mood and affect; insight and judgment ABnormal. NOT AT BASELINE PER wort extractor REASON FOR PROCEDURE Central venous access 5-19 PROCEDURE PERFORMED Central line placement: RIJ central line placement CONSENT Informed consent for procedure was obtained from . The risks and benefits of the procedure were discussed to include but limited to bleeding, clot formation, infection, and even . ANESTHESIA Local injection of 1% Lidocaine DESCRIPTION OF THE PROCEDURE The patient was placed in supine, mild Trendelenburg position. The area was exposed and cleansed with ChloraPrep, times two. Large sterile drape was used to cover the patient, with the site exposed, under sterile conditions including cap, face mask, sterile gown, and sterile gloves. On single attempt, the introducer needle was inserted with negative pressure in syringe and venous flash was obtained. The guide wire was then advanced without any restriction and the needle was removed. The dilator was used without any complications. Using Seldinger technique the 20 cm 7F trip[le lumen catheter was advanced over the guide wire to a depth of 17 centimeters. The guide wire was removed. All ports were aspirated with dark venous blood return and flushed easily with sterile saline. All ports were capped. Antibiotic disc was placed around central line at puncture site. The central line was secured to the skin with two interrupted 2.0 silk sutures. The area was bandaged with sterile see- through central line bandage. RADIOLOGICAL DATA Ultrasound guidance was used to locate RIJ. Doppler/color flow was used to confirm venous flow. COMPLICATIONS: No apparent complications ESTIMATED BLOOD LOSS: Less than 1 cc. Desi Quick MD August 10, 2017 05:17 <Electronically signed by Desi Quick MD> 08/10/17 0517 PATIENT PULLED LINE EARLY THIS MORNING ALREADY HAD NO ACCESS FOR LABS ETC Medications and IVs Current Medications Metoprolol Tartrate (Lopressor Inj) 5 mg ONCE ONCE IV PUSH Last administered on 08/06/17at 15:53; Start 08/06/17 at 15:45; Stop 08/06/17 at 15:46; Status DC Sodium Chloride 250 ml @ 250 mls/hr BOLUS ONCE IV Last administered on at 16:34; Start 08/06/17 at 16:30; Stop 08/06/17 at 17:29; Status DC Sodium Chloride 1,000 ml @ 100 mls/hr Q10H IV Last administered on 08/09/17at 14:35; Start 08/06/17 at 16:30; Stop 08/10/17 at 05:45; Status DC Ondansetron HCl (Zofran Inj) 4 mg ONCE ONCE IV PUSH Last administered on at 17:32; Start 08/06/17 at 17:15; Stop 08/06/17 at 17:16; Status DC Morphine Sulfate (Morphine Inj) 4 mg ONCE ONCE IV PUSH Last administered on at 17:33; Start 08/06/17 at 17:15; Stop 08/06/17 at 17:16; Status DC Sodium Chloride (NS Flush) 2 ml UNSCH PRN IV FLUSH FLUSH AFTER USING IV ACCESS Last administered on 08/09/17at 04:58; Start 08/06/17 at 17:30 Sodium Chloride (NS Flush) 2 ml BID IV FLUSH Last administered on 08/09/17at 21: 54; Start 08/06/17 at 21:00 Acetaminophen (Tylenol) 650 mg Q6H PRN PO FEVER >101F; Start 08/06/17 at 17:30 Ondansetron HCl (Zofran Inj) 4 mg Q6H PRN IV PUSH NAUSEA OR VOMITING; Start at 17:30; Stop 08/06/17 at 17:49; Status DC Albuterol Sulfate (Albuterol Neb) 2.5 mg Q2HR NEB PRN INH SOB/WHEEZING; Start 08/06/17 at 17:30; Status Future Hold Miscellaneous Information ([facility] Nursing Information) 1 [id number] Last administered on 08/06/17at 23:00; Start 08/06/17 at 17:30 Senna/Docusate Sodium (Beatrice-Colace) 1 tab BID PO Last administered on at 21:54; Start 08/06/17 at 21:00; Stop 08/09/17 at 22:55; Status DC Magnesium Hydroxide (Milk Of Magnesia Liq) 30 ml Q12H PRN PO Mild constipation ; Start 08/06/17 at 17:30 Sennosides (Senokot) 17.2 mg Q12H PRN PO Moderate constipation; Start 08/06/17 at 17:30 Bisacodyl (Dulcolax Supp) 10 mg DAILY PRN RECTAL SEVERE CONSITIPATION; Start at 17:30 Lactulose (Lactulose Liq) 30 ml DAILY PRN PO SEVERE CONSITIPATION; Start at 17:30 Apixaban (Eliquis) 5 mg BID PO Last administered on 08/09/17 21:54; Start at 21:00 Colesevelam HCl (Welchol) 625 mg TID PO Last administered on 08/09/17 14:36; Start 08/06/17 at 18:00 Furosemide (Lasix) 40 mg DAILY PO Last administered on 08/09/17 10:16; Start 08/07/17 at 09:00 Levothyroxine Sodium (Synthroid) 88 mcg DAILY@0600 PO Last administered on 08/10 05:34; Start 08/07/17 at 06:00 Lisinopril (Prinivil) 10 mg DAILY PO Last administered on 08/09/17 10:16; Start 08/07/17 at 09:00; Status Future Hold Tramadol HCl (Ultram) 50 mg Q6H PRN PO PAIN SCALE 1 TO 10 Last administered on 08/08/17at 07:54; Start 08/06/17 at 17:30 Famotidine (Pepcid) 10 mg BID PO Last administered on 08/09/17 21:54; Start at 21:00 Ondansetron HCl (Zofran Odt) 4 mg Q6H PRN SL NAUSEA OR VOMITING Last administered on 08/09/17 09:55; Start 08/06/17 at 18:00 Diltiazem HCl 125 mg/Sodium Chloride 125 ml @ 5 mls/hr TITRATE PRN IV tachycardia Last administered on 08/06/17 19:21; Start 08/06/17 at 18:45 Diltiazem HCl (Cardizem Inj) 14 mg BOLUS ONCE IV PUSH ; Start 08/06/17 at 18:45 ; Stop 08/06/17 at 18:46; Status Cancel Diltiazem HCl (Cardizem Inj) 14 mg BOLUS ONCE IV PUSH Last administered on at 19:25; Start 08/06/17 at 19:30; Stop 08/06/17 at 19:31; Status DC Morphine Sulfate (Morphine Inj) 2 mg Q3H PRN IM Pain 6-10 Last administered on 5/16/18at 07:07; Start 08/06/17 at 23:30; Status Future Hold Dexmedetomidine HCl 200 mcg/ Sodium Chloride 52 ml @ 3.01 mls/hr TITRATE PRN IV SEDATION Last administered on 08/06/17at 23:36; Start 08/06/17 at 23:30; Stop 08/10/17 at 05:44; Status DC Esmolol HCl/ Sodium Chloride 250 ml @ 17.55 mls/ hr TITRATE PRN IV Blood Pressure Management Last administered on 08/09/17at 22:58; Start 08/07/17 at 08: 00 Diltiazem HCl (Cardizem) 60 mg Q6H PO Last administered on 08/10/17at 05:37; Start 08/07/17 at 14:00 Diltiazem HCl (Cardizem) 60 mg STAT ONCE PO Last administered on 08/07/17at 08: 25; Start 08/07/17 at 08:15; Stop 08/07/17 at 08:16; Status DC Acetaminophen/ Hydrocodone Bitart ([place] 5-325 Mg) 1 tab Q6H PRN PO PAIN 6-10 Last administered on 08/08/17at 02:44; Start 08/07/17 at 12:30 Morphine Sulfate (Morphine Inj) 0.5 mg ONCE ONCE IV PUSH Last administered on 08/07/17at 13:19; Start 08/07/17 at 12:30; Stop 08/07/17 at 12:31; Status DC Metoprolol Tartrate (Lopressor Inj) 2.5 mg Q4H PRN IV PUSH HR>105; Start at 15:30 Amiodarone HCl (Cordarone) 400 mg Q12HR PO Last administered on 08/09/17at 21:54 ; Start 08/07/17 at 21:00; Stop 08/12/17 at 20:59 Heparin Sodium/ Sodium Chloride 0 ml @ As Directed STK-MED ONCE .ROUTE ; Start 08/09/17 at 06:45; Stop 08/09/17 at 06:46; Status DC Isoproterenol HCl 0 ml @ As Directed STK-MED ONCE IV ; Start 08/09/17 at 06:59; Stop 08/09/17 at 07:00; Status DC Heparin Sodium/ Dextrose 250 ml @ As Directed STK-MED ONCE .ROUTE ; Start 08/09 at 06:59; Stop 08/09/17 at 07:00; Status DC Fentanyl Citrate (fentaNYL INJ) 200 mcg STK-MED ONCE .ROUTE ; Start 08/09/17 at 06:59; Stop 08/09/17 at 07:00; Status DC Midazolam HCl (Versed Inj) 2 mg STK-MED ONCE .ROUTE ; Start 08/09/17 at 06:59; Stop 08/09/17 at 07:00; Status DC Protamine Sulfate (Protamine Sulfate Inj) 50 mg STK-MED ONCE .ROUTE ; Start at 07:00; Stop 08/09/17 at 07:01; Status DC Heparin Sodium (Porcine) (Heparin Inj) 10,000 units STK-MED ONCE .ROUTE ; Start 08/09/17 at 07:00; Stop 08/09/17 at 07:01; Status DC Famotidine (Pepcid Inj) 20 mg STK-MED ONCE .ROUTE ; Start 08/09/17 at 07:00; Stop 08/09/17 at 07:01; Status DC Sodium Chloride 500 ml @ 500 mls/hr BOLUS ONCE IV Last administered on at 10:00; Start 08/09/17 at 10:00; Stop 08/09/17 at 10:59; Status DC Calcium Chloride 1 gm/Sodium Chloride 110 ml @ 110 mls/hr ONCE ONCE IV Last administered on 08/09/17at 11:19; Start 08/09/17 at 11:00; Stop 08/09/17 at 11:59 ; Status DC Sodium Chloride 1,000 ml @ 70 mls/hr [id number] IV ; Start 08/09/17 at 17:00 Iohexol (Omnipaque 350 Inj) 75 ml STK-MED ONCE IVCONTRAST Last administered on 08/09/17at 18:22; Start 08/09/17 at 18:22; Stop 08/09/17 at 18:23; Status DC Dextrose/Sodium Chloride 500 ml @ 500 mls/hr BOLUS ONCE IV Last administered on 08/09/17at 20:00; Start 08/09/17 at 20:00; Stop 08/09/17 at 20:59; Status DC Sodium Bicarbonate (Sodium Bicarbonate 8.4% Inj) 50 meq ONCE ONCE IV PUSH Last administered on 08/09/17at 21:54; Start 08/09/17 at 21:15; Stop 08/09/17 at 21:16; Status DC Sodium Bicarbonate (Sodium Bicarbonate 8.4% Inj) 50 meq ONCE ONCE IV PUSH Last administered on 08/09/17at 21:55; Start 08/09/17 at 21:15; Stop 08/09/17 at 21:16; Status DC Levalbuterol HCl (Xopenex Neb) 1.25 mg Q6HR NEB NEB Last administered on at 22:31; Start 08/09/17 at 22:00; Stop 08/10/17 at 00:03; Status DC Docusate Sodium (Colace) 100 mg BID PO ; Start 08/10/17 at 09:00 Levalbuterol HCl (Xopenex Neb) 1.25 mg Q2HR NEB PRN NEB SEE LABEL COMMENTS; Start 08/10/17 at 00:15; Stop 08/10/17 at 00:15; Status DC Levalbuterol HCl (Xopenex Neb) 1.25 mg Q2HR NEB PRN NEB SEE LABEL COMMENTS; Start 08/10/17 at 00:15 Digoxin (Lanoxin) 0.25 mg NOW ONCE PO ; Start 08/10/17 at 05:15; Stop 08/10/17 at 05:16; Status Cancel Sodium Chloride 500 ml @ 500 mls/hr Q1H ONCE IV Last administered on at 05:15; Start 08/10/17 at 05:15; Stop 08/10/17 at 06:14; Status DC Digoxin (Lanoxin Inj) 0.25 mg NOW ONCE IV PUSH Last administered on 08/10/17at 05:35; Start 08/10/17 at 05:15; Stop 08/10/17 at 05:16; Status DC Sodium Bicarbonate (Sodium Bicarbonate 8.4% Inj) 50 meq ONCE ONCE IV PUSH Last administered on 08/10/17at 05:34; Start 08/10/17 at 05:30; Stop 08/10/17 at 05:31; Status DC A/P Assessment and Plan Atrial fibrillation/flutter with RVR -s/pCardizem drip for rate control -on Cardizem 60 mg p.o. every 6 hours and amiodarone 400mg po DAILY -Continue telemetry -cali Garcia, evaluated the patient and TO HAVE CARDIOVERSION TODAY -Eliquis for anticoagulation -Back on esmolol gtt due HR not well controlled. Hyponatremia -Chronic. Na 135 yesterday, no new lab today -Gentle IV fluid hydration -Monitor trend Chronic back pain -Continue home meds and morphine as needed, but reduce dose CHF - Chronic, stable. 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 Pt also on esmolol gtt. Discharge Planning PENDING CARDIAC IMPROVEMENT Jay Jacobo DO August 10, 2017 10:33
[2017-08-10] MEDS: COLESEVELAM HCL 625 MG TAB PO SCH ×3 (10:35→18:45)
[2017-08-10] MEDS: DOCUSATE SODIUM 100 MG CAP PO SCH ×2 (10:35→19:37)
[2017-08-10] MEDS: AMIODARONE 200 MG TAB PO SCH ×2 (10:36→19:51)
[2017-08-10] MEDS: FAMOTIDINE 20 MG TAB PO SCH ×2 (10:36→19:37)
[2017-08-10] MEDS: SODIUM CHLORIDE 0.9% FLUSH 10 ML FLUSH IV FLUSH SCH ×2 (10:36→19:38)
[2017-08-10] MEDS: APIXABAN 5 MG TABLET PO SCH ×2 (10:36→19:37)
[2017-08-10] MEDS: FUROSEMIDE 40 MG TAB PO SCH (10:36)
--- NOTE | 2017-08-10 10:59 | PD.CARD.PN ---
Subjective Subjective Remarks Follow up for Dr. Pickard Events overnight noted Episodes of confusion, although she appears more with it this morning Objective Medications Current Medications Medications (Trade) Dose Ordered Sig/Sammy Route Start Time Stop Time Status Last Admin (NS Flush) 2 ml UNSCH PRN IV FLUSH 08/06/17 17:30 08/09/17 04:58 (NS Flush) 2 ml BID IV FLUSH 08/06/17 21:00 08/10/17 10:36 (Tylenol) 650 mg Q6H PRN PO 08/06/17 17:30 (Albuterol Neb) 2.5 mg Q2HR NEB PRN INH 08/06/17 17:30 [place] [place] 1 Q361D XX 08/06/17 17:30 08/06/17 23:00 (Milk Of Magnesia Liq) 30 ml Q12H PRN PO 08/06/17 17:30 (Senokot) 17.2 mg Q12H PRN PO 08/06/17 17:30 (Dulcolax Supp) 10 mg DAILY PRN RECTAL 08/06/17 17:30 (Lactulose Liq) 30 ml DAILY PRN PO 08/06/17 17:30 (Eliquis) 5 mg BID PO 08/06/17 21:00 08/10/17 10:36 (Welchol) 625 mg TID PO 08/06/17 18:00 08/10/17 10:35 (Lasix) 40 mg DAILY PO 08/07/17 09:00 08/10/17 10:36 (Synthroid) 88 mcg DAILY@0600 PO 08/07/17 06:00 08/10/17 05:34 (Prinivil) 10 mg DAILY PO 08/07/17 09:00 Future Hold 08/09/17 10:16 (Ultram) 50 mg Q6H PRN PO 08/06/17 17:30 08/08/17 07:54 (Pepcid) 10 mg BID PO 08/06/17 21:00 08/10/17 10:36 (Zofran Odt) 4 mg Q6H PRN SL 08/06/17 18:00 08/09/17 09:55 Diltiazem HCl 125 mg/Sodium Chloride 125 ml @ 5 mls/hr TITRATE PRN IV 08/06/17 18:45 08/06/17 19:21 (Morphine Inj) 2 mg Q3H PRN IM 08/06/17 23:30 Future Hold 08/07/17 07:07 Esmolol HCl/ Sodium Chloride 250 ml @ 17.55 mls/ hr TITRATE PRN IV 08/07/17 08:00 08/09/17 22:58 (Cardizem) 60 mg Q6H PO 08/07/17 14:00 08/10/17 10:35 ([place] 5-325 Mg) 1 tab Q6H PRN PO 08/07/17 12:30 08/08/17 02:44 (Lopressor Inj) 2.5 mg Q4H PRN IV PUSH 08/07/17 15:30 (Cordarone) 400 mg Q12HR PO 08/07/17 21:00 08/12/17 20:59 08/10/17 10:36 Sodium Chloride 1,000 ml @ 70 mls/hr [id number] IV 08/09/17 17:00 (Colace) 100 mg BID PO 08/10/17 09:00 08/10/17 10:35 (Xopenex Neb) 1.25 mg Q2HR NEB PRN NEB 08/10/17 00:15 Vital Signs / I&O Vital Signs Date Time Temp Pulse Resp B/P (MAP) Pulse Ox O2 Delivery O2 Flow Rate FiO2 08/10/17 09:00 116 109/58 08/10/17 08:36 Nasal Cannula 2.00 08/10/17 07:30 122 98/73 08/10/17 06:00 125 08/10/17 04:00 117 08/10/17 04:00 97.6 117 20 80/53 (62) 08/10/17 02:00 120 08/10/17 00:00 97.6 127 24 92/57 (69) 86 08/10/17 00:00 127 08/09/17 22:58 122 92/54 08/09/17 22:57 122 97/67 08/09/17 22:00 126 08/09/17 20:00 119 08/09/17 20:00 97.9 119 20 08/09/17 20:00 119 99/46 08/09/17 18:00 132 08/09/17 16:00 97.7 127 26 104/51 (68) 08/09/17 16:00 127 08/09/17 15:35 134 118/72 08/09/17 14:00 135 08/09/17 12:00 130 08/09/17 12:00 96.3 130 19 87/60 (69) 64 I/O 08/09/17 08/09/17 08/09/17 08/10/17 08/10/17 08/10/17 07:00 15:00 23:00 07:00 15:00 23:00 Intake Total 2280 ml 1840 ml 990 ml 500 ml Output Total 300 ml Balance 2280 ml 1840 ml 990 ml 200 ml Intake Oral 240 ml 240 ml 0 ml IV Total 2040 ml 1840 ml 750 ml 500 ml Output Urine Total 300 ml Bladder Scan Volume Amount 424 ml # Voids 3 3 1 # Bowel Movements 0 0 Physical Exam GENERAL: NAD SKIN: Warm and dry. HEAD: Atraumatic. Normocephalic. EYES: Pupils equal and round. No scleral icterus. No injection or drainage. ENT: No nasal bleeding or discharge. Mucous membranes pink and moist. NECK: Trachea midline. No JVD. CARDIOVASCULAR: Irregularly irregular RESPIRATORY: No accessory muscle use. Decreased breath sounds bilaterally GASTROINTESTINAL: Abdomen soft, non-tender, nondistended. Hepatic and splenic margins not palpable. MUSCULOSKELETAL: Extremities without clubbing, cyanosis, or edema. No obvious deformities. NEUROLOGICAL: Awake and alert. No obvious cranial nerve deficits. Motor grossly within normal limits. Five out of 5 muscle strength in the arms and legs. Normal speech. PSYCHIATRIC: Appropriate mood Laboratory Laboratory Tests Test 08/09/17 16:25 08/09/17 16:31 08/09/17 16:51 08/09/17 20:53 Blood Gas Puncture Site RT RADIAL LT BRACHIAL Blood Gas Patient Temperature 98.6 98.6 Blood Gas HCO3 14 mmol/L 14 mmol/L Blood Gas Base Excess -11.0 mmol/L -11.4 mmol/L Blood Gas Oxygen Saturation 96 % 95 % Arterial Blood pH 7.31 7.29 Arterial Blood Partial Pressure CO2 29 mmHg 30 mmHg Arterial Blood Partial Pressure O2 114 mmHg 97 mmHg Arterial Blood Oxygen Content 15.2 Vol % 14.8 Vol % Arterial Blood Carboxyhemoglobin 0.6 % 0.7 % Arterial Blood Methemoglobin 0.9 % 1.0 % Blood Gas Hemoglobin 11.1 G/DL 11.0 G/DL Oxygen Delivery Device NASAL CANNULA NASAL CANNULA Blood Gas Liter Flow 3 L/M 3 L/M White Blood Count 12.4 TH/MM3 Red Blood Count 3.61 MIL/MM3 Hemoglobin 11.1 GM/DL Hematocrit 33.1 % Mean Corpuscular Volume 91.9 FL Mean Corpuscular Hemoglobin 30.9 PG Mean Corpuscular Hemoglobin Concent 33.6 % Red Cell Distribution Width 15.7 % Platelet Count 335 TH/MM3 Mean Platelet Volume 8.5 FL Neutrophils (%) (Auto) 89.8 % Lymphocytes (%) (Auto) 5.9 % Monocytes (%) (Auto) 4.1 % Eosinophils (%) (Auto) 0.0 % Basophils (%) (Auto) 0.2 % Neutrophils # (Auto) 11.1 TH/MM3 Lymphocytes # (Auto) 0.7 TH/MM3 Monocytes # (Auto) 0.5 TH/MM3 Eosinophils # (Auto) 0.0 TH/MM3 Basophils # (Auto) 0.0 TH/MM3 CBC Comment DIFF FINAL Differential Comment Prothrombin Time 14.3 SEC Prothromb Time International Ratio 1.4 RATIO Activated Partial Thromboplast Time 33.8 SEC Fibrinogen 360 mg/dL Blood Urea Nitrogen 33 MG/DL Creatinine 1.06 MG/DL Random Glucose 109 MG/DL Calcium Level 7.7 MG/DL Sodium Level 138 MEQ/L Potassium Level 4.3 MEQ/L Chloride Level 110 MEQ/L Carbon Dioxide Level 12.9 MEQ/L Anion Gap 15 MEQ/L Estimat Glomerular Filtration Rate 49 ML/MIN Total Creatine Kinase 119 U/L Troponin I 0.11 NG/ML Blood Gas Inspired Oxygen 32 % Test 08/09/17 21:48 08/09/17 23:11 08/10/17 00:27 08/10/17 04:44 White Blood Count 11.5 TH/MM3 Red Blood Count 3.29 MIL/MM3 Hemoglobin 10.0 GM/DL Hematocrit 30.6 % Mean Corpuscular Volume 92.9 FL Mean Corpuscular Hemoglobin 30.5 PG Mean Corpuscular Hemoglobin Concent 32.8 % Red Cell Distribution Width 16.4 % Platelet Count 356 TH/MM3 Mean Platelet Volume 9.2 FL Neutrophils (%) (Auto) 90.1 % Lymphocytes (%) (Auto) 5.4 % Monocytes (%) (Auto) 4.4 % Eosinophils (%) (Auto) 0.0 % Basophils (%) (Auto) 0.1 % Neutrophils # (Auto) 10.3 TH/MM3 Lymphocytes # (Auto) 0.6 TH/MM3 Monocytes # (Auto) 0.5 TH/MM3 Eosinophils # (Auto) 0.0 TH/MM3 Basophils # (Auto) 0.0 TH/MM3 CBC Comment DIFF FINAL Differential Comment Lactic Acid Level 1.5 mmol/L Blood Urea Nitrogen 34 MG/DL Creatinine 1.19 MG/DL Random Glucose 130 MG/DL Total Protein 5.6 GM/DL Albumin 2.8 GM/DL Calcium Level 7.2 MG/DL Alkaline Phosphatase 106 U/L Aspartate Amino Transf (AST/SGOT) 40 U/L Alanine Aminotransferase (ALT/SGPT) 60 U/L Total Bilirubin 0.4 MG/DL Sodium Level 140 MEQ/L Potassium Level 4.4 MEQ/L Chloride Level 107 MEQ/L Carbon Dioxide Level 17.4 MEQ/L Anion Gap 16 MEQ/L Estimat Glomerular Filtration Rate 43 ML/MIN Protein Corrected Calcium 8.0 MG/DL Troponin I 0.49 NG/ML Blood Gas Puncture Site LT RADIAL Blood Gas Patient Temperature 98.6 Blood Gas HCO3 17 mmol/L Blood Gas Base Excess -8.0 mmol/L Blood Gas Oxygen Saturation 95 % Arterial Blood pH 7.34 Arterial Blood Partial Pressure CO2 31 mmHg Arterial Blood Partial Pressure O2 101 mmHg Arterial Blood Oxygen Content 15.1 Vol % Arterial Blood Carboxyhemoglobin 0.6 % Arterial Blood Methemoglobin 1.1 % Blood Gas Hemoglobin 11.1 G/DL Oxygen Delivery Device NASAL CANNULA Blood Gas Inspired Oxygen 3 % Test 08/10/17 06:25 White Blood Count 11.1 TH/MM3 Red Blood Count 3.50 MIL/MM3 Hemoglobin 10.6 GM/DL Hematocrit 32.1 % Mean Corpuscular Volume 91.6 FL Mean Corpuscular Hemoglobin 30.3 PG Mean Corpuscular Hemoglobin Concent 33.1 % Red Cell Distribution Width 16.0 % Platelet Count 346 TH/MM3 Mean Platelet Volume 8.2 FL Neutrophils (%) (Auto) 85.5 % Lymphocytes (%) (Auto) 5.3 % Monocytes (%) (Auto) 9.0 % Eosinophils (%) (Auto) 0.0 % Basophils (%) (Auto) 0.2 % Neutrophils # (Auto) 9.5 TH/MM3 Lymphocytes # (Auto) 0.6 TH/MM3 Monocytes # (Auto) 1.0 TH/MM3 Eosinophils # (Auto) 0.0 TH/MM3 Basophils # (Auto) 0.0 TH/MM3 CBC Comment DIFF FINAL Differential Comment Blood Urea Nitrogen 34 MG/DL Creatinine 1.22 MG/DL Random Glucose 119 MG/DL Total Protein 5.4 GM/DL Albumin 2.7 GM/DL Calcium Level 7.1 MG/DL Phosphorus Level 2.6 MG/DL Magnesium Level 2.0 MG/DL Alkaline Phosphatase 101 U/L Aspartate Amino Transf (AST/SGOT) 37 U/L Alanine Aminotransferase (ALT/SGPT) 58 U/L Total Bilirubin 0.4 MG/DL Sodium Level 144 MEQ/L Potassium Level 4.2 MEQ/L Chloride Level 110 MEQ/L Carbon Dioxide Level 21.0 MEQ/L Anion Gap 13 MEQ/L Estimat Glomerular Filtration Rate 42 ML/MIN Protein Corrected Calcium 8.0 MG/DL Troponin I 0.53 NG/ML Free Thyroxine 1.14 NG/DL Thyroid Stimulating Hormone 3rd Gen 7.000 uIU/ML Imaging Last 24 hours Impressions Chest X-Ray 08/10/17 0000 Signed Impressions: Service Date/Time: Thursday, August 10, 2017 05:26 - CONCLUSION: 1. Right central line in superior vena cava without pneumothorax. José Palacio MD Head CT 08/09/17 1639 Signed Impressions: Service Date/Time: Wednesday, August 09, 2017 17:52 - CONCLUSION: No acute disease. Abdelrahman Leary MD Head CTA 08/09/17 1624 Signed Impressions: Service Date/Time: Wednesday, August 09, 2017 17:52 - CONCLUSION: Mild fusiform dilatation of the cavernous portion of the internal carotid artery on the left. The more distal flow is normal. Abdelrahman Leary MD Assessment and Plan Problem List: (1) Atrial fibrillation with RVR ICD Codes: I48.91 - Unspecified atrial fibrillation Status: Acute (2) CHF (congestive heart failure) ICD Codes: I50.9 - Heart failure, unspecified Status: Chronic (3) Elevated troponin ICD Codes: R74.8 - Abnormal levels of other serum enzymes (4) Chronic CHF ICD Codes: I50.9 - Heart failure, unspecified Status: Acute (5) CKD (chronic kidney disease) ICD Codes: N18.9 - Chronic kidney disease, unspecified Status: Acute Assessment and Plan 1) Afib with RVR Controlled better on higher dose of Esmolol drip Chay't Eliquis, will need to be held in anticipation of Afib ablation, will discuss with Dr. Pickard 2) Elevated troponin No chest pain Most likely type 2 Discussed consideration of ischemic evaluation, but patient told me to " leave it alone" Will continue to discuss with her as concern for confusion at the time, but overall not a great candidate for revascularization if needed Richmond Nugent DO August 10, 2017 10:59
--- NOTE | 2017-08-10 11:19 | EKG ---
Date Performed: 08/10/2017 Time Performed: 04:31:30 PTAGE: 86 years EKG: Atrial fibrillation with rapid ventricular response. Extensive ST-T changes may be due to m yocardial ischemia Abnormal ECG PREVIOUS TRACING : 08/09/2017 21.40 Since the previous tracing, no significant change noted DOCTOR: Dean Henderson Interpretating Date/Time 08/10/2017 11:17:37
--- NOTE | 2017-08-10 11:30 | PD.CONS ---
History of Present Illness Service Neurology Consult Requested By Medical Reason for Consult Possible stroke Primary Care Physician Malachi Hua MD History of Present Illness 86-year-old female in the critical care unit, admitted with atrial fibrillation and seen by the cardiology service. RVR noted to be little more confused right-sided weakness yesterday morning. Onset unknown. Does have atrial fibrillation and is on anticoagulation. Thus not a TPA candidate also time of onset unknown. She did have CTs performed of the brain and carotids which did not demonstrate any significant vaso-occlusive disease. CT brain no acute lesion or hemorrhage Patient appears to be doing a lot better morning alert follows denies any headache visual loss or focal weakness. Specifically denies any right-sided weakness or headache or neck pain. Denies any history of TIA or stroke. Review of Systems As above and admission H&P Past Family Social History Allergies: Coded Allergies: doxycycline (Unverified Allergy, Intermediate, UNKNOWN, 08/06/17) minocycline (Unverified Allergy, Intermediate, UNKNOWN, 08/06/17) tigecycline (Unverified Allergy, Intermediate, UNKNOWN, 08/06/17) pantoprazole (Unverified Allergy, Unknown, 08/06/17) codeine (Unverified Adverse Reaction, Intermediate, UPSET STOMACH, 08/06/17 ) prednisone (Unverified Adverse Reaction, Mild, Nausea/Vomiting, 08/06/17) amiodarone (Verified Adverse Reaction, Unknown, 08/06/17) amlodipine (Verified Adverse Reaction, Unknown, 08/06/17) Past Medical History Anxiety Depression Fibromyalgia A. fib on Eliquis HTN, Hyperlipidemia CHF (Echo 06/25/16 w/ EF 30-35%) Chronic Back Pain and h/o Compression Fx Past Surgical History Cataract Surgery Tonsillectomy Lipoma Kyphoplasty 2008 Reported Medications Family History No family history significant of early coronary artery disease or CVA Social History Occasional alcohol. Negative for tobacco or drugs. Review of Systems All other ROS: ROS reviewed as documented in chart Past Family Social History Allergies: Coded Allergies: doxycycline (Unverified Allergy, Intermediate, UNKNOWN, 08/06/17) minocycline (Unverified Allergy, Intermediate, UNKNOWN, 08/06/17) tigecycline (Unverified Allergy, Intermediate, UNKNOWN, 08/06/17) pantoprazole (Unverified Allergy, Unknown, 08/06/17) codeine (Unverified Adverse Reaction, Intermediate, UPSET STOMACH, 08/06/17 ) prednisone (Unverified Adverse Reaction, Mild, Nausea/Vomiting, 08/06/17) amlodipine (Verified Adverse Reaction, Unknown, 08/06/17) Active Ordered Medications Current Medications Medications (Trade) Dose Ordered Sig/Sammy Route Start Time Stop Time Status Last Admin (NS Flush) 2 ml UNSCH PRN IV FLUSH 08/06/17 17:30 08/09/17 04:58 (NS Flush) 2 ml BID IV FLUSH 08/06/17 21:00 08/10/17 10:36 (Tylenol) 650 mg Q6H PRN PO 08/06/17 17:30 (Albuterol Neb) 2.5 mg Q2HR NEB PRN INH 08/06/17 17:30 [place] [place] 1 Q361D XX 08/06/17 17:30 08/06/17 23:00 (Milk Of Magnesia Liq) 30 ml Q12H PRN PO 08/06/17 17:30 (Senokot) 17.2 mg Q12H PRN PO 08/06/17 17:30 (Dulcolax Supp) 10 mg DAILY PRN RECTAL 08/06/17 17:30 (Lactulose Liq) 30 ml DAILY PRN PO 08/06/17 17:30 (Eliquis) 5 mg BID PO 08/06/17 21:00 08/10/17 10:36 (Welchol) 625 mg TID PO 08/06/17 18:00 08/10/17 10:35 (Lasix) 40 mg DAILY PO 08/07/17 09:00 08/10/17 10:36 (Synthroid) 88 mcg DAILY@0600 PO 08/07/17 06:00 08/10/17 05:34 (Prinivil) 10 mg DAILY PO 08/07/17 09:00 Future Hold 08/09/17 10:16 (Ultram) 50 mg Q6H PRN PO 08/06/17 17:30 08/08/17 07:54 (Pepcid) 10 mg BID PO 08/06/17 21:00 08/10/17 10:36 (Zofran Odt) 4 mg Q6H PRN SL 08/06/17 18:00 08/09/17 09:55 Diltiazem HCl 125 mg/Sodium Chloride 125 ml @ 5 mls/hr TITRATE PRN IV 08/06/17 18:45 08/06/17 19:21 (Morphine Inj) 2 mg Q3H PRN IM 08/06/17 23:30 Future Hold 08/07/17 07:07 Esmolol HCl/ Sodium Chloride 250 ml @ 17.55 mls/ hr TITRATE PRN IV 08/07/17 08:00 08/09/17 22:58 (Cardizem) 60 mg Q6H PO 08/07/17 14:00 08/10/17 10:35 ([place] 5-325 Mg) 1 tab Q6H PRN PO 08/07/17 12:30 08/08/17 02:44 (Lopressor Inj) 2.5 mg Q4H PRN IV PUSH 08/07/17 15:30 (Cordarone) 400 mg Q12HR PO 08/07/17 21:00 08/12/17 20:59 08/10/17 10:36 Sodium Chloride 1,000 ml @ 70 mls/hr [id number] IV 08/09/17 17:00 (Colace) 100 mg BID PO 08/10/17 09:00 08/10/17 10:35 (Xopenex Neb) 1.25 mg Q2HR NEB PRN NEB 08/10/17 00:15 Exam I&O / VS 08/10/17 08/10/17 08/11/17 15:00 23:00 07:00 Bladder Scan Volume Amount 424 ml Vital Signs Date Time Temp Pulse Resp B/P (MAP) Pulse Ox O2 Delivery O2 Flow Rate FiO2 08/10/17 09:00 116 109/58 08/10/17 08:36 Nasal Cannula 2.00 08/10/17 07:30 122 98/73 08/10/17 06:00 125 08/10/17 04:00 117 08/10/17 04:00 97.6 117 20 80/53 (62) 08/10/17 02:00 120 08/10/17 00:00 97.6 127 24 92/57 (69) 86 08/10/17 00:00 127 08/09/17 22:58 122 92/54 08/09/17 22:57 122 97/67 08/09/17 22:00 126 08/09/17 20:00 119 08/09/17 20:00 97.9 119 20 08/09/17 20:00 119 99/46 08/09/17 18:00 132 08/09/17 16:00 97.7 127 26 104/51 (68) 08/09/17 16:00 127 08/09/17 15:35 134 118/72 08/09/17 14:00 135 08/09/17 12:00 130 08/09/17 12:00 96.3 130 19 87/60 (69) 64 General: Alert and Oriented, No acute distress Eye: EOMI Respiratory: Non-labored respirations Musculoskeletal: ROM Neurologic: Alert, Oriented, Normal motor, No focal defects, CN II-XII intact, Normal DTR's Psychiatric: Cooperative Exam Comments Alert oriented to 3. president Yong, physician Dr. 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 Gait not assessed secondary to fall risk Review/Management Diagnosis/Plan: (1) Encephalopathy, metabolic ICD Codes: G93.41 - Metabolic encephalopathy Status: Acute Plan: Likely multifactorial related to medications, hypertension, pain medications Less likely to be an embolic infarct is on anticoagulation imaging studies have been negative at this point Amiodarone in some patients can cause a mild encephalopathy She is doing a lot better Recommendations EEG Avoid hypotension Minimize opiates Follow exam (2) Atrial fibrillation with RVR ICD Codes: I48.91 - Unspecified atrial fibrillation Status: Chronic Plan: Per medical, cardiology On anticoagulation (3) CHF (congestive heart failure) ICD Codes: I50.9 - Heart failure, unspecified Status: Chronic Plan: Per medical, cardiology (4) CKD (chronic kidney disease) ICD Codes: N18.9 - Chronic kidney disease, unspecified Status: Acute Plan: Per medical Roshan Calles MD August 10, 2017 11:30
[2017-08-10 11:46] LABS: HEMOGLOBIN A1C 5.8 % (4.3-6.0)
--- NOTE | 2017-08-10 13:46 | EKG ---
Date Performed: 08/09/2017 Time Performed: 21:40:30 PTAGE: 86 years EKG: Atrial fibrillation with rapid ventricular response Possible left ventricular hypertrophy E xtensive ST-T changes may be due to hypertrophy and/or ischemia Abnormal ECG PREVIOUS TRACING : 08/06/2017 22.04 Since the previous tracing, no significant change noted DOCTOR: Dean Henderson Interpretating Date/Time 08/10/2017 13:44:15
[2017-08-10] MEDS: ESMOLOL DRIP INJ PREMIX 250 ML IV PRN (18:49)
[2017-08-10 19:20] LABS: BLOOD, URINE MOD (NEG); GLUCOSE,URINE NEG (NEG); KETONE, URINE 40 mg/dL (NEG); NITRITE,URINE NEG (NEG); URINE COLOR Red (YELLW/STRAW); URINE LEUKOCYTE ESTERASE TRACE (NEG)
[2017-08-10 19:26] LABS: BILIRUBIN, URINE NEG (NEG)
[2017-08-10 19:50] LABS: BACTERIA, URINE OCC /hpf; SQUAMOUS EPITHELIAL CELL URINE 0-5 /hpf (0-5); WHITE BLOOD CELL CLUMPS OCC
--- NOTE | 2017-08-10 21:47 | MG ---
cc: Roshan Calles MD, Mandeep MD EEG NUMBER [id number] INTERPRETATION: 4-5 Hz theta activity with beta frequencies. Delta frequencies occurring polyfrequency type pattern. Intermittent to continuous myogenic artifact occurring frontal channels and temporal. Limited driving with photic stimulation. Single lead EKG showing irregularly irregular rhythm. IMPRESSION: Mild encephalopathy, myogenic artifact. Cardiac arrhythmia. Clinical correlation. MD ALICIA Mckay/ , 09:32 PM , 09:46 PM
[2017-08-11] VITALS (19 sets, daily range): BP systolic 104–125; BP diastolic 54–75; PULSE 71–112; RESP 20–21; TEMP 97.5–98.5; O2SAT 69–89
[2017-08-11] MEDS: DILTIAZEM HCL 60 MG TAB PO SCH ×4 (02:00→21:34)
[2017-08-11] MEDS: SODIUM CHLOR 0.9% 1000 ML INJ 1,000 ML IV SCH ×2 (04:08→19:00)
[2017-08-11] MEDS: LEVOTHYROXINE SODIUM 88 MCG TAB PO SCH (05:05)
[2017-08-11 06:37] LABS: ALBUMIN 2.9 GM/DL (3.4-5.0); BICARBONATE 18.5 MEQ/L (21.0-32.0); CALCIUM-PROTEIN CORRECTED 7.7 MG/DL (8.5-10.1); CREATININE 1.14 MG/DL (0.50-1.00); MAGNESIUM 2.3 MG/DL (1.5-2.5); TOTAL BILIRUBIN ADULT 0.3 MG/DL (0.2-1.0); TOTAL PROTEIN 5.8 GM/DL (6.4-8.2)
[2017-08-11 07:13] LABS: AUTOMATED NEUTROPHIL # 10.5 TH/MM3 (1.8-7.7); BASOPHIL % 0.3 % (0.0-2.0); HEMATOCRIT 34.1 % (35.0-46.0); HEMOGLOBIN 11.3 GM/DL (11.6-15.3); LYMPH % 5.3 % (9.0-44.0); LYMPHOCYTE # 0.7 TH/MM3 (1.0-4.8); MEAN CELL VOLUME 91.8 FL (80.0-100.0); MEAN CORPUSCULAR HEMOGLOBIN 30.5 PG (27.0-34.0); MEAN CORPUSCULAR HGB CONC 33.2 % (32.0-36.0); MEAN PLATELET VOLUME 8.6 FL (7.0-11.0); MONO % 9.3 % (0.0-8.0); MONOCYTE # 1.2 TH/MM3 (0-0.9); NEUT % 85.1 % (16.0-70.0); PLATELET COUNT 362 TH/MM3 (150-450); RED BLOOD COUNT 3.71 MIL/MM3 (4.00-5.30); RED CELL DISTRIBUTION WIDTH 16.2 % (11.6-17.2); WHITE BLOOD COUNT 12.4 TH/MM3 (4.0-11.0)
[2017-08-11] MEDS: COLESEVELAM HCL 625 MG TAB PO SCH ×3 (08:39→18:41)
[2017-08-11] MEDS: DOCUSATE SODIUM 100 MG CAP PO SCH ×2 (08:39→21:33)
[2017-08-11] MEDS: FAMOTIDINE 20 MG TAB PO SCH ×2 (08:39→21:33)
[2017-08-11] MEDS: AMIODARONE 200 MG TAB PO SCH ×2 (08:39→21:33)
[2017-08-11] MEDS: FUROSEMIDE 40 MG TAB PO SCH (08:39)
[2017-08-11] MEDS: SODIUM CHLORIDE 0.9% FLUSH 10 ML FLUSH IV FLUSH SCH ×2 (09:00→21:33)
--- NOTE | 2017-08-11 10:19 | HHI.PR ---
Review/Management Diagnosis/Plan: (1) Encephalopathy, metabolic ICD Codes: G93.41 - Metabolic encephalopathy Status: Acute Plan: Likely multifactorial related to medications, hypertension, pain medications Less likely to be an embolic infarct is on anticoagulation imaging studies have been negative at this point Amiodarone in some patients can cause a mild encephalopathy She is doing a lot better Recommendations Neuro stable doing well EEG mild encephalopathy- Avoid hypotension Minimize opiates Follow exam (2) Atrial fibrillation with RVR ICD Codes: I48.91 - Unspecified atrial fibrillation Status: Chronic Plan: Per medical, cardiology On anticoagulation (3) CHF (congestive heart failure) ICD Codes: I50.9 - Heart failure, unspecified Status: Chronic Plan: Per medical, cardiology (4) CKD (chronic kidney disease) ICD Codes: N18.9 - Chronic kidney disease, unspecified Status: Acute Plan: Per medical Subjective Subjective Comments No acute events reported No headache No chest pain No dyspnea Active Medications Current Medications Medications (Trade) Dose Ordered Sig/Sammy Route Start Time Stop Time Status Last Admin (NS Flush) 2 ml UNSCH PRN IV FLUSH 08/06/17 17:30 08/09/17 04:58 (NS Flush) 2 ml BID IV FLUSH 08/06/17 21:00 08/10/17 19:38 (Tylenol) 650 mg Q6H PRN PO 08/06/17 17:30 (Albuterol Neb) 2.5 mg Q2HR NEB PRN INH 08/06/17 17:30 Future Hold ([facility] [place] [facility] [place] 1 [id number] XX 08/06/17 17:30 08/06/17 23:00 (Milk Of Magnesia Liq) 30 ml Q12H PRN PO 08/06/17 17:30 (Senokot) 17.2 mg Q12H PRN PO 08/06/17 17:30 (Dulcolax Supp) 10 mg DAILY PRN RECTAL 08/06/17 17:30 (Lactulose Liq) 30 ml DAILY PRN PO 08/06/17 17:30 (Eliquis) 5 mg BID PO 08/06/17 21:00 08/10/17 19:37 (Welchol) 625 mg TID PO 08/06/17 18:00 08/11/17 08:39 (Lasix) 40 mg DAILY PO 08/07/17 09:00 08/11/17 08:39 (Synthroid) 88 mcg DAILY@0600 PO 08/07/17 06:00 08/11/17 05:05 (Prinivil) 10 mg DAILY PO 08/07/17 09:00 Future Hold 08/09/17 10:16 (Ultram) 50 mg Q6H PRN PO 08/06/17 17:30 08/08/17 07:54 (Pepcid) 10 mg BID PO 08/06/17 21:00 08/11/17 08:39 (Zofran Odt) 4 mg Q6H PRN SL 08/06/17 18:00 08/09/17 09:55 Diltiazem HCl 125 mg/Sodium Chloride 125 ml @ 5 mls/hr TITRATE PRN IV 08/06/17 18:45 08/06/17 19:21 (Morphine Inj) 2 mg Q3H PRN IM 08/06/17 23:30 Future Hold 08/07/17 07:07 Esmolol HCl/ Sodium Chloride 250 ml @ 17.55 mls/ hr TITRATE PRN IV 08/07/17 08:00 08/10/17 18:49 (Cardizem) 60 mg Q6H PO 08/07/17 14:00 08/11/17 08:40 ([place] 5-325 Mg) 1 tab Q6H PRN PO 08/07/17 12:30 08/08/17 02:44 (Lopressor Inj) 2.5 mg Q4H PRN IV PUSH 08/07/17 15:30 (Cordarone) 400 mg Q12HR PO 08/07/17 21:00 08/12/17 20:59 08/11/17 08:39 Sodium Chloride 1,000 ml @ 70 mls/hr [id number] IV 08/09/17 17:00 08/11/17 04:08 (Colace) 100 mg BID PO 08/10/17 09:00 08/11/17 08:39 (Xopenex Neb) 1.25 mg Q2HR NEB PRN NEB 08/10/17 00:15 Allergies Allergies Coded Allergies doxycycline (Unverified Allergy, Intermediate, UNKNOWN, 08/06/17) minocycline (Unverified Allergy, Intermediate, UNKNOWN, 08/06/17) tigecycline (Unverified Allergy, Intermediate, UNKNOWN, 08/06/17) pantoprazole (Unverified Allergy, Unknown, 08/06/17) codeine (Unverified Adverse Reaction, Intermediate, UPSET STOMACH, 08/06/17) prednisone (Unverified Adverse Reaction, Mild, Nausea/Vomiting, 08/06/17) amlodipine (Verified Adverse Reaction, Unknown, 08/06/17) Review of Systems All other ROS: ROS reviewed as documented in chart Exam I&O / VS Vital Signs Date Time Temp Pulse Resp B/P (MAP) Pulse Ox O2 Delivery O2 Flow Rate FiO2 08/11/17 09:11 Nasal Cannula 3.00 08/11/17 06:00 71 08/11/17 04:00 97.5 76 21 104/54 (71) 08/11/17 04:00 76 08/11/17 02:00 87 08/11/17 00:00 97.9 74 20 106/55 (72) 08/11/17 00:00 74 08/10/17 22:00 73 08/10/17 20:00 79 08/10/17 20:00 97.8 79 39 102/67 (79) 08/10/17 20:00 79 102/67 08/10/17 18:49 76 103/64 08/10/17 18:00 81 08/10/17 17:00 108 08/10/17 16:00 120 08/10/17 16:00 98.1 120 20 130/60 (83) 84 08/10/17 15:30 92 129/76 08/10/17 15:00 86 08/10/17 14:00 82 08/10/17 13:00 77 08/10/17 12:30 96 116/77 08/10/17 12:00 98.3 108 23 138/61 (86) 79 08/10/17 12:00 108 08/10/17 11:00 113 General: Alert and Oriented, No acute distress Eye: EOMI Respiratory: Non-labored respirations Musculoskeletal: ROM Neurologic: Alert, Oriented, Normal motor, No focal defects, CN II-XII intact, Normal DTR's Psychiatric: Cooperative Exam Comments Alert oriented to 3. president Trump, pleasant, follows articulate, extraocular movements intact bilateral surgical cataract changes sluggishly reactive pupils 2 mm, face symmetric tongue midline upper extremities are in restraints she is able to [employer] bilaterally, is able to raise both lower extremities gravity reflexes trace no clonus plantarflex response withdraws to pinprick all 4 limbs. Gait not assessed secondary to fall risk Objective Micro and Labs Laboratory Tests Test 08/10/17 13:54 08/10/17 18:00 08/11/17 04:00 Ammonia 21 Urine Color Red Urine Turbidity Cloudy Urine pH 6.0 Urine Specific [place] 1.030 Urine Protein 300 OR GREATER Urine Glucose (UA) NEG Urine Ketones 40 Urine Occult Blood MOD Urine Nitrite NEG Urine Bilirubin NEG Urine Urobilinogen 0.2 Urine Leukocyte Esterase TRACE Urine RBC Urine WBC 50-99 Urine WBC Clumps OCC Urine Squamous Epithelial Cells 0-5 Urine Bacteria OCC White Blood Count 12.4 Red Blood Count 3.71 Hemoglobin 11.3 Hematocrit 34.1 Mean Corpuscular Volume 91.8 Mean Corpuscular Hemoglobin 30.5 Mean Corpuscular Hemoglobin Concent 33.2 Red Cell Distribution Width 16.2 Platelet Count 362 Mean Platelet Volume 8.6 Neutrophils (%) (Auto) 85.1 Lymphocytes (%) (Auto) 5.3 Monocytes (%) (Auto) 9.3 Eosinophils (%) (Auto) 0.0 Basophils (%) (Auto) 0.3 Neutrophils # (Auto) 10.5 Lymphocytes # (Auto) 0.7 Monocytes # (Auto) 1.2 Eosinophils # (Auto) 0.0 Basophils # (Auto) 0.0 CBC Comment DIFF FINAL Differential Comment Blood Urea Nitrogen 35 Creatinine 1.14 Random Glucose 102 Total Protein 5.8 Albumin 2.9 Calcium Level 7.0 Phosphorus Level 2.0 Magnesium Level 2.3 Alkaline Phosphatase 96 Aspartate Amino Transf (AST/SGOT) 38 Alanine Aminotransferase (ALT/SGPT) 60 Total Bilirubin 0.3 Sodium Level 146 Potassium Level 4.1 Chloride Level 113 Carbon Dioxide Level 18.5 Anion Gap 15 Estimat Glomerular Filtration Rate 45 Protein Corrected Calcium 7.7 Date/Time Source Procedure Growth Status 08/06/17 20:25 Blood Peripheral Aerobic Blood Culture - Preliminary NO GROWTH IN 4 DAYS Resulted 08/06/17 20:25 Blood Peripheral Anaerobic Blood Culture - Preliminary NO GROWTH IN 4 DAYS Resulted 08/06/17 19:00 Nasal Aspirate Influenza Types A,B Antigen (BERNIE) - Final NEGATIVE FOR FLU A AND B ANTIGEN.... Complete 08/06/17 17:45 Urine Catheterized Urine Legionella Antigen - Final PRESUMPTIVE NEGATIVE FOR LEGIONELLA P... Complete 08/06/17 17:45 Urine Catheterized Urine Streptococcus pneumoniae Antigen (M - Final PRESUMPTIVE NEGATIVE FOR STREPTOCOCCU... Complete Roshan Calles MD August 11, 2017 10:19
--- NOTE | 2017-08-11 10:24 | HHI.PR ---
Subjective Remarks 86-year-old female presented to emergency department at [place] because of fast heart rate. She has a history of atrial fibrillation. She has had 2 ablations done in the past. She had cardioversion done last summer. She is on Eliquis. She is not on any medication for rate control now. The patient has been having a hard fast heart rate for several days at least. She denies any chest pain. She had an EKG in May of this year which showed sinus rhythm. She takes lisinopril for high blood pressure. She does have chronic pain and is on tramadol. Also hypothyroidism on levothyroxine. 08/07: Heart rate remains from 90-130 on Cardizem infusion 15 mg/h. still remains what appears to be a flutter with RVR. Due to Cardizem infusion shortage, will start Cardizem 60 mg p.o. every 6 hours and attempt weaning Cardizem IV. For rate control use esmolol if needed as patient is allergic to Amio 5- Pt seen earlier this morning around 8:15am Pt doesn't feel any palpitations. Pt denies any CP/worsening SOB/n/v complains that bed is not very comfortable and also the tape from the pulse ox bothering her discussed w RN, pt was restarted on the esmolol gtt, she did get her amiodarone po w not much improvement of her HR 18 is HYPOTENSIVE TODAY WILL GIVE A NS BOLUS COMPLAINS OF RIGHT HAND TINGLING AND RIGHT HAD IS PURPLISH/BLUISH DW RN AND PT TO HAVE CARDIOVERSION TODAY REPLACE CALCIUM FLUID BOLUS 5- NOTES FROM LAST NIGHT REMOVED HAD RIGHT SIDE CENTRAL LINE THAT THE PATIENT PULLED OUT ON HER OWN HAS SOFT RESTRAINTS NOW NEEDS A PICC FOR IV ACCESS DW RN AND PT STILL REMAINS CONFUSED RIGHT ARM WITH BETTER FLOW AT THIS TIME 5-20 SEEN BY NEUROLOGY LESS CONFUSION BETTER FLOW TO RIGHT ARM DW RN AND PT AM LABS MAYBE FOR ABLATION/CARDIOVERSION TOMORROW DEPENDING ON DR DOTY SCHEDULE Objective Vitals Vital Signs Date Time Temp Pulse Resp B/P (MAP) Pulse Ox O2 Delivery O2 Flow Rate FiO2 08/11/17 09:11 Nasal Cannula 3.00 08/11/17 06:00 71 08/11/17 04:00 97.5 76 21 104/54 (71) 08/11/17 04:00 76 08/11/17 02:00 87 08/11/17 00:00 97.9 74 20 106/55 (72) 08/11/17 00:00 74 08/10/17 22:00 73 08/10/17 20:00 79 08/10/17 20:00 97.8 79 39 102/67 (79) 08/10/17 20:00 79 102/67 08/10/17 18:49 76 103/64 08/10/17 18:00 81 08/10/17 17:00 108 08/10/17 16:00 120 08/10/17 16:00 98.1 120 20 130/60 (83) 84 08/10/17 15:30 92 129/76 08/10/17 15:00 86 08/10/17 14:00 82 08/10/17 13:00 77 08/10/17 12:30 96 116/77 08/10/17 12:00 98.3 108 23 138/61 (86) 79 08/10/17 12:00 108 08/10/17 11:00 113 I/O 08/10/17 08/10/17 08/10/17 08/11/17 08/11/17 08/11/17 07:00 15:00 23:00 07:00 15:00 23:00 Intake Total 500 ml 550 ml 1431 ml Output Total 300 ml 500 ml 300 ml Balance 200 ml 50 ml 1131 ml Intake Oral 0 ml 300 ml 120 ml IV Total 500 ml 250 ml 1311 ml Output Urine Total 300 ml 500 ml 300 ml Bladder Scan Volume Amount 424 ml # Voids 1 # Bowel Movements 0 0 Result Diagram: 08/11/17 0400 08/11/17 0400 Other Results Laboratory Tests Test 08/08/17 16:07 08/09/17 03:48 08/09/17 16:25 08/09/17 16:31 Blood Urea Nitrogen 24 MG/DL 23 MG/DL Creatinine 1.00 MG/DL 0.87 MG/DL Random Glucose 89 MG/DL 88 MG/DL Total Protein 5.8 GM/DL 5.1 GM/DL Calcium Level 7.1 MG/DL 6.4 MG/DL Sodium Level 136 MEQ/L 142 MEQ/L Potassium Level 4.0 MEQ/L 4.3 MEQ/L Chloride Level 103 MEQ/L 110 MEQ/L Carbon Dioxide Level 24.1 MEQ/L 18.6 MEQ/L Anion Gap 9 MEQ/L 13 MEQ/L Estimat Glomerular Filtration Rate 53 ML/MIN 62 ML/MIN Protein Corrected Calcium 7.8 MG/DL 7.4 MG/DL Blood Gas Puncture Site RT RADIAL Blood Gas Patient Temperature 98.6 Blood Gas HCO3 14 mmol/L Blood Gas Base Excess -11.0 mmol/L Blood Gas Oxygen Saturation 96 % Arterial Blood pH 7.31 Arterial Blood Partial Pressure CO2 29 mmHg Arterial Blood Partial Pressure O2 114 mmHg Arterial Blood Oxygen Content 15.2 Vol % Arterial Blood Carboxyhemoglobin 0.6 % Arterial Blood Methemoglobin 0.9 % Blood Gas Hemoglobin 11.1 G/DL Oxygen Delivery Device NASAL CANNULA Blood Gas Liter Flow 3 L/M White Blood Count 12.4 TH/MM3 Red Blood Count 3.61 MIL/MM3 Hemoglobin 11.1 GM/DL Hematocrit 33.1 % Mean Corpuscular Volume 91.9 FL Mean Corpuscular Hemoglobin 30.9 PG Mean Corpuscular Hemoglobin Concent 33.6 % Red Cell Distribution Width 15.7 % Platelet Count 335 TH/MM3 Mean Platelet Volume 8.5 FL Neutrophils (%) (Auto) 89.8 % Lymphocytes (%) (Auto) 5.9 % Monocytes (%) (Auto) 4.1 % Eosinophils (%) (Auto) 0.0 % Basophils (%) (Auto) 0.2 % Neutrophils # (Auto) 11.1 TH/MM3 Lymphocytes # (Auto) 0.7 TH/MM3 Monocytes # (Auto) 0.5 TH/MM3 Eosinophils # (Auto) 0.0 TH/MM3 Basophils # (Auto) 0.0 TH/MM3 CBC Comment DIFF FINAL Differential Comment Prothrombin Time 14.3 SEC Prothromb Time International Ratio 1.4 RATIO Activated Partial Thromboplast Time 33.8 SEC Fibrinogen 360 mg/dL Test 08/09/17 16:51 08/09/17 20:53 08/09/17 21:48 08/09/17 23:11 Blood Urea Nitrogen 33 MG/DL Creatinine 1.06 MG/DL Random Glucose 109 MG/DL Calcium Level 7.7 MG/DL Sodium Level 138 MEQ/L Potassium Level 4.3 MEQ/L Chloride Level 110 MEQ/L Carbon Dioxide Level 12.9 MEQ/L Anion Gap 15 MEQ/L Estimat Glomerular Filtration Rate 49 ML/MIN Total Creatine Kinase 119 U/L Troponin I 0.11 NG/ML Blood Gas Puncture Site LT BRACHIAL Blood Gas Patient Temperature 98.6 Blood Gas HCO3 14 mmol/L Blood Gas Base Excess -11.4 mmol/L Blood Gas Oxygen Saturation 95 % Arterial Blood pH 7.29 Arterial Blood Partial Pressure CO2 30 mmHg Arterial Blood Partial Pressure O2 97 mmHg Arterial Blood Oxygen Content 14.8 Vol % Arterial Blood Carboxyhemoglobin 0.7 % Arterial Blood Methemoglobin 1.0 % Blood Gas Hemoglobin 11.0 G/DL Oxygen Delivery Device NASAL CANNULA Blood Gas Liter Flow 3 L/M Blood Gas Inspired Oxygen 32 % White Blood Count 11.5 TH/MM3 Red Blood Count 3.29 MIL/MM3 Hemoglobin 10.0 GM/DL Hematocrit 30.6 % Mean Corpuscular Volume 92.9 FL Mean Corpuscular Hemoglobin 30.5 PG Mean Corpuscular Hemoglobin Concent 32.8 % Red Cell Distribution Width 16.4 % Platelet Count 356 TH/MM3 Mean Platelet Volume 9.2 FL Neutrophils (%) (Auto) 90.1 % Lymphocytes (%) (Auto) 5.4 % Monocytes (%) (Auto) 4.4 % Eosinophils (%) (Auto) 0.0 % Basophils (%) (Auto) 0.1 % Neutrophils # (Auto) 10.3 TH/MM3 Lymphocytes # (Auto) 0.6 TH/MM3 Monocytes # (Auto) 0.5 TH/MM3 Eosinophils # (Auto) 0.0 TH/MM3 Basophils # (Auto) 0.0 TH/MM3 CBC Comment DIFF FINAL Differential Comment Lactic Acid Level 1.5 mmol/L Test 08/10/17 00:27 08/10/17 04:44 08/10/17 06:25 08/10/17 13:54 Blood Urea Nitrogen 34 MG/DL 34 MG/DL Creatinine 1.19 MG/DL 1.22 MG/DL Random Glucose 130 MG/DL 119 MG/DL Total Protein 5.6 GM/DL 5.4 GM/DL Albumin 2.8 GM/DL 2.7 GM/DL Calcium Level 7.2 MG/DL 7.1 MG/DL Alkaline Phosphatase 106 U/L 101 U/L Aspartate Amino Transf (AST/SGOT) 40 U/L 37 U/L Alanine Aminotransferase (ALT/SGPT) 60 U/L 58 U/L Total Bilirubin 0.4 MG/DL 0.4 MG/DL Sodium Level 140 MEQ/L 144 MEQ/L Potassium Level 4.4 MEQ/L 4.2 MEQ/L Chloride Level 107 MEQ/L 110 MEQ/L Carbon Dioxide Level 17.4 MEQ/L 21.0 MEQ/L Anion Gap 16 MEQ/L 13 MEQ/L Estimat Glomerular Filtration Rate 43 ML/MIN 42 ML/MIN Protein Corrected Calcium 8.0 MG/DL 8.0 MG/DL Troponin I 0.49 NG/ML 0.53 NG/ML Blood Gas Puncture Site LT RADIAL Blood Gas Patient Temperature 98.6 Blood Gas HCO3 17 mmol/L Blood Gas Base Excess -8.0 mmol/L Blood Gas Oxygen Saturation 95 % Arterial Blood pH 7.34 Arterial Blood Partial Pressure CO2 31 mmHg Arterial Blood Partial Pressure O2 101 mmHg Arterial Blood Oxygen Content 15.1 Vol % Arterial Blood Carboxyhemoglobin 0.6 % Arterial Blood Methemoglobin 1.1 % Blood Gas Hemoglobin 11.1 G/DL Oxygen Delivery Device NASAL CANNULA Blood Gas Inspired Oxygen 3 % White Blood Count 11.1 TH/MM3 Red Blood Count 3.50 MIL/MM3 Hemoglobin 10.6 GM/DL Hematocrit 32.1 % Mean Corpuscular Volume 91.6 FL Mean Corpuscular Hemoglobin 30.3 PG Mean Corpuscular Hemoglobin Concent 33.1 % Red Cell Distribution Width 16.0 % Platelet Count 346 TH/MM3 Mean Platelet Volume 8.2 FL Neutrophils (%) (Auto) 85.5 % Lymphocytes (%) (Auto) 5.3 % Monocytes (%) (Auto) 9.0 % Eosinophils (%) (Auto) 0.0 % Basophils (%) (Auto) 0.2 % Neutrophils # (Auto) 9.5 TH/MM3 Lymphocytes # (Auto) 0.6 TH/MM3 Monocytes # (Auto) 1.0 TH/MM3 Eosinophils # (Auto) 0.0 TH/MM3 Basophils # (Auto) 0.0 TH/MM3 CBC Comment DIFF FINAL Differential Comment Phosphorus Level 2.6 MG/DL Magnesium Level 2.0 MG/DL Hemoglobin A1c 5.8 % Free Thyroxine 1.14 NG/DL Thyroid Stimulating Hormone 3rd Gen 7.000 uIU/ML Ammonia 21 MCMOL/L Test 08/10/17 18:00 08/11/17 04:00 Urine Color Red Urine Turbidity Cloudy Urine pH 6.0 Urine Specific [place] 1.030 Urine Protein 300 OR GREATER mg/dL Urine Glucose (UA) NEG mg/dL Urine Ketones 40 mg/dL Urine Occult Blood MOD Urine Nitrite NEG Urine Bilirubin NEG Urine Urobilinogen 0.2 MG/DL Urine Leukocyte Esterase TRACE Urine RBC /hpf Urine WBC 50-99 /hpf Urine WBC Clumps OCC Urine Squamous Epithelial Cells 0-5 /hpf Urine Bacteria OCC /hpf White Blood Count 12.4 TH/MM3 Red Blood Count 3.71 MIL/MM3 Hemoglobin 11.3 GM/DL Hematocrit 34.1 % Mean Corpuscular Volume 91.8 FL Mean Corpuscular Hemoglobin 30.5 PG Mean Corpuscular Hemoglobin Concent 33.2 % Red Cell Distribution Width 16.2 % Platelet Count 362 TH/MM3 Mean Platelet Volume 8.6 FL Neutrophils (%) (Auto) 85.1 % Lymphocytes (%) (Auto) 5.3 % Monocytes (%) (Auto) 9.3 % Eosinophils (%) (Auto) 0.0 % Basophils (%) (Auto) 0.3 % Neutrophils # (Auto) 10.5 TH/MM3 Lymphocytes # (Auto) 0.7 TH/MM3 Monocytes # (Auto) 1.2 TH/MM3 Eosinophils # (Auto) 0.0 TH/MM3 Basophils # (Auto) 0.0 TH/MM3 CBC Comment DIFF FINAL Differential Comment Blood Urea Nitrogen 35 MG/DL Creatinine 1.14 MG/DL Random Glucose 102 MG/DL Total Protein 5.8 GM/DL Albumin 2.9 GM/DL Calcium Level 7.0 MG/DL Phosphorus Level 2.0 MG/DL Magnesium Level 2.3 MG/DL Alkaline Phosphatase 96 U/L Aspartate Amino Transf (AST/SGOT) 38 U/L Alanine Aminotransferase (ALT/SGPT) 60 U/L Total Bilirubin 0.3 MG/DL Sodium Level 146 MEQ/L Potassium Level 4.1 MEQ/L Chloride Level 113 MEQ/L Carbon Dioxide Level 18.5 MEQ/L Anion Gap 15 MEQ/L Estimat Glomerular Filtration Rate 45 ML/MIN Protein Corrected Calcium 7.7 MG/DL Imaging Last Impressions Chest X-Ray 08/10/17 0000 Signed Impressions: Service Date/Time: Thursday, August 10, 2017 05:26 - CONCLUSION: 1. Right central line in superior vena cava without pneumothorax. José Palacio MD Head CT 08/09/17 1639 Signed Impressions: Service Date/Time: Wednesday, August 09, 2017 17:52 - CONCLUSION: No acute disease. Abdelrahman Leary MD Head CTA 08/09/17 1624 Signed Impressions: Service Date/Time: Wednesday, August 09, 2017 17:52 - CONCLUSION: Mild fusiform dilatation of the cavernous portion of the internal carotid artery on the left. The more distal flow is normal. Abdelrahman Leary MD Neck CTA 08/09/17 0000 Signed Impressions: Service Date/Time: Wednesday, August 09, 2017 17:52 - CONCLUSION: No significant stenosis is seen. Abdelrahman Leary MD Abdomen/Pelvis CT 08/09/17 0000 Signed Impressions: Service Date/Time: Wednesday, August 09, 2017 22:20 - CONCLUSION: 1. Moderate right pleural effusion and mild left pleural effusion with accompanying atelectasis. 2. Mild amount of free fluid in the lower pelvic peritoneal cavity/cul-de-sac. 3. Edema seen throughout the subcutaneous tissues likely from anasarca. 4. Bladder diverticulum. 5. Contrast in the bladder and kidneys from prior administration. Abdelrahman Leary MD Abdomen X-Ray 08/09/17 0000 Signed Impressions: Service Date/Time: Wednesday, August 09, 2017 20:35 - CONCLUSION: 1. Mild nonspecific colonic dilatation. 2. Status post vertebroplasty of L2. 3. 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 4. 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 Abdelrahman Leary MD Objective Remarks GENERAL: AWAKE ALERT AND ORIENTED X2 - TALKATIVE AND COOPERATIVE SKIN: Warm and dry. RIGHT HAND BLUISH/PURPLE HEAD: Atraumatic. Normocephalic. EYES: Pupils equal and round. No scleral icterus. No injection or drainage. EOMI ENT: No nasal bleeding or discharge. Mucous membranes pink and moist. TONGUE MIDLINE NECK: Trachea midline. No JVD. SUPPLE CARDIOVASCULAR: IRRegular rate and rhythm. S1, S2 NO S3 OR S4 RESPIRATORY: No accessory muscle use. Clear to auscultation. Breath sounds equal bilaterally. GASTROINTESTINAL: Abdomen soft, non-tender, nondistended. Hepatic and splenic margins not palpable. MUSCULOSKELETAL: Extremities without clubbing, cyanosis, or edema. No obvious deformities. NEUROLOGICAL: Awake and alert. No obvious cranial nerve deficits. Motor grossly within normal limits. 4 out of 5 muscle strength in the arms and legs. Normal speech. PURPLISH RIGHT HAND MORE THAN LEFT HAS IMPROVED SINCE YESTERDAY PSYCHIATRIC: MORE Appropriate mood and affect; insight and judgment ABnormal. 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 The risks and benefits of the procedure were discussed to include but limited to bleeding, clot formation, infection, and even . ANESTHESIA Local injection of 1% Lidocaine DESCRIPTION OF THE PROCEDURE The patient was placed in supine, mild Trendelenburg position. The area was exposed and cleansed with ChloraPrep, times two. Large sterile drape was used to cover the patient, with the site exposed, under sterile conditions including cap, face mask, sterile gown, and sterile gloves. On single attempt, the introducer needle was inserted with negative pressure in syringe and venous flash was obtained. The guide wire was then advanced without any restriction and the needle was removed. The dilator was used without any complications. Using Seldinger technique the 20 cm 7F trip[le lumen catheter was advanced over the guide wire to a depth of 17 centimeters. The guide wire was removed. All ports were aspirated with dark venous blood return and flushed easily with sterile saline. All ports were capped. Antibiotic disc was placed around central line at puncture site. The central line was secured to the skin with two interrupted 2.0 silk sutures. The area was bandaged with sterile see- through central line bandage. RADIOLOGICAL DATA Ultrasound guidance was used to locate RIJ. Doppler/color flow was used to confirm venous flow. COMPLICATIONS: No apparent complications ESTIMATED BLOOD LOSS: Less than 1 cc. Desi Quick MD August 10, 2017 05:17 <Electronically signed by Desi Quick MD> 08/10/17 0517 PATIENT PULLED LINE EARLY THIS MORNING ALREADY HAD NO ACCESS FOR LABS ETC Medications and IVs Current Medications Metoprolol Tartrate (Lopressor Inj) 5 mg ONCE ONCE IV PUSH Last administered on 08/06/17at 15:53; Start 08/06/17 at 15:45; Stop 08/06/17 at 15:46; Status DC Sodium Chloride 250 ml @ 250 mls/hr BOLUS ONCE IV Last administered on at 16:34; Start 08/06/17 at 16:30; Stop 08/06/17 at 17:29; Status DC Sodium Chloride 1,000 ml @ 100 mls/hr Q10H IV Last administered on 08/09/17 14:35; Start 08/06/17 at 16:30; Stop 08/10/17 at 05:45; Status DC Ondansetron HCl (Zofran Inj) 4 mg ONCE ONCE IV PUSH Last administered on at 17:32; Start 08/06/17 at 17:15; Stop 08/06/17 at 17:16; Status DC Morphine Sulfate (Morphine Inj) 4 mg ONCE ONCE IV PUSH Last administered on at 17:33; Start 08/06/17 at 17:15; Stop 08/06/17 at 17:16; Status DC Sodium Chloride (NS Flush) 2 ml UNSCH PRN IV FLUSH FLUSH AFTER USING IV ACCESS Last administered on 08/09/17 04:58; Start 08/06/17 at 17:30 Sodium Chloride (NS Flush) 2 ml BID IV FLUSH Last administered on 08/10/17at 19: 38; Start 08/06/17 at 21:00 Acetaminophen (Tylenol) 650 mg Q6H PRN PO FEVER >101F; Start 08/06/17 at 17:30 Ondansetron HCl (Zofran Inj) 4 mg Q6H PRN IV PUSH NAUSEA OR VOMITING; Start at 17:30; Stop 08/06/17 at 17:49; Status DC Albuterol Sulfate (Albuterol Neb) 2.5 mg Q2HR NEB PRN INH SOB/WHEEZING; Start 08/06/17 at 17:30; Status Future Hold Miscellaneous Information ([facility]) 1 [id number] Last administered on 08/06/17at 23:00; Start 08/06/17 at 17:30 Senna/Docusate Sodium (Beatrice-Colace) 1 tab BID PO Last administered on at 21:54; Start 08/06/17 at 21:00; Stop 08/09/17 at 22:55; Status DC Magnesium Hydroxide (Milk Of Magnesia Liq) 30 ml Q12H PRN PO Mild constipation ; Start 08/06/17 at 17:30 Sennosides (Senokot) 17.2 mg Q12H PRN PO Moderate constipation; Start 08/06/17 at 17:30 Bisacodyl (Dulcolax Supp) 10 mg DAILY PRN RECTAL SEVERE CONSITIPATION; Start at 17:30 Lactulose (Lactulose Liq) 30 ml DAILY PRN PO SEVERE CONSITIPATION; Start at 17:30 Apixaban (Eliquis) 5 mg BID PO Last administered on 08/10/17at 19:37; Start at 21:00 Colesevelam HCl (Welchol) 625 mg TID PO Last administered on 08/11/17at 08:39; Start 08/06/17 at 18:00 Furosemide (Lasix) 40 mg DAILY PO Last administered on 08/11/17at 08:39; Start 08/07/17 at 09:00 Levothyroxine Sodium (Synthroid) 88 mcg DAILY@0600 PO Last administered on 08/11at 05:05; Start 08/07/17 at 06:00 Lisinopril (Prinivil) 10 mg DAILY PO Last administered on 08/09/17at 10:16; Start 08/07/17 at 09:00; Status Future Hold Tramadol HCl (Ultram) 50 mg Q6H PRN PO PAIN SCALE 1 TO 10 Last administered on 08/08/17at 07:54; Start 08/06/17 at 17:30 Famotidine (Pepcid) 10 mg BID PO Last administered on 08/11/17at 08:39; Start at 21:00 Ondansetron HCl (Zofran Odt) 4 mg Q6H PRN SL NAUSEA OR VOMITING Last administered on 08/09/17at 09:55; Start 08/06/17 at 18:00 Diltiazem HCl 125 mg/Sodium Chloride 125 ml @ 5 mls/hr TITRATE PRN IV tachycardia Last administered on 08/06/17at 19:21; Start 08/06/17 at 18:45 Diltiazem HCl (Cardizem Inj) 14 mg BOLUS ONCE IV PUSH ; Start 08/06/17 at 18:45 ; Stop 08/06/17 at 18:46; Status Cancel Diltiazem HCl (Cardizem Inj) 14 mg BOLUS ONCE IV PUSH Last administered on at 19:25; Start 08/06/17 at 19:30; Stop 08/06/17 at 19:31; Status DC Morphine Sulfate (Morphine Inj) 2 mg Q3H PRN IM Pain 6-10 Last administered on 08/07/17at 07:07; Start 08/06/17 at 23:30; Status Future Hold Dexmedetomidine HCl 200 mcg/ Sodium Chloride 52 ml @ 3.01 mls/hr TITRATE PRN IV SEDATION Last administered on 08/06/17at 23:36; Start 08/06/17 at 23:30; Stop 08/10/17 at 05:44; Status DC Esmolol HCl/ Sodium Chloride 250 ml @ 17.55 mls/ hr TITRATE PRN IV Blood Pressure Management Last administered on 08/10/17at 18:49; Start 08/07/17 at 08: 00 Diltiazem HCl (Cardizem) 60 mg Q6H PO Last administered on 08/11/17at 08:40; Start 08/07/17 at 14:00 Diltiazem HCl (Cardizem) 60 mg STAT ONCE PO Last administered on 08/07/17at 08: 25; Start 08/07/17 at 08:15; Stop 08/07/17 at 08:16; Status DC Acetaminophen/ Hydrocodone Bitart ([place] 5-325 Mg) 1 tab Q6H PRN PO PAIN 6-10 Last administered on 08/08/17at 02:44; Start 08/07/17 at 12:30 Morphine Sulfate (Morphine Inj) 0.5 mg ONCE ONCE IV PUSH Last administered on 08/07/17at 13:19; Start 08/07/17 at 12:30; Stop 08/07/17 at 12:31; Status DC Metoprolol Tartrate (Lopressor Inj) 2.5 mg Q4H PRN IV PUSH HR>105; Start at 15:30 Amiodarone HCl (Cordarone) 400 mg Q12HR PO Last administered on 08/11/17at 08:39 ; Start 08/07/17 at 21:00; Stop 08/12/17 at 20:59 Heparin Sodium/ Sodium Chloride 0 ml @ As Directed STK-MED ONCE .ROUTE ; Start 08/09/17 at 06:45; Stop 08/09/17 at 06:46; Status DC Isoproterenol HCl 0 ml @ As Directed STK-MED ONCE IV ; Start 08/09/17 at 06:59; Stop 08/09/17 at 07:00; Status DC Heparin Sodium/ Dextrose 250 ml @ As Directed STK-MED ONCE .ROUTE ; Start 08/09 at 06:59; Stop 08/09/17 at 07:00; Status DC Fentanyl Citrate (fentaNYL INJ) 200 mcg STK-MED ONCE .ROUTE ; Start 08/09/17 at 06:59; Stop 08/09/17 at 07:00; Status DC Midazolam HCl (Versed Inj) 2 mg STK-MED ONCE .ROUTE ; Start 08/09/17 at 06:59; Stop 08/09/17 at 07:00; Status DC Protamine Sulfate (Protamine Sulfate Inj) 50 mg STK-MED ONCE .ROUTE ; Start at 07:00; Stop 08/09/17 at 07:01; Status DC Heparin Sodium (Porcine) (Heparin Inj) 10,000 units STK-MED ONCE .ROUTE ; Start 08/09/17 at 07:00; Stop 08/09/17 at 07:01; Status DC Famotidine (Pepcid Inj) 20 mg STK-MED ONCE .ROUTE ; Start 08/09/17 at 07:00; Stop 08/09/17 at 07:01; Status DC Sodium Chloride 500 ml @ 500 mls/hr BOLUS ONCE IV Last administered on at 10:00; Start 08/09/17 at 10:00; Stop 08/09/17 at 10:59; Status DC Calcium Chloride 1 gm/Sodium Chloride 110 ml @ 110 mls/hr ONCE ONCE IV Last administered on 08/09/17at 11:19; Start 08/09/17 at 11:00; Stop 08/09/17 at 11:59 ; Status DC Sodium Chloride 1,000 ml @ 70 mls/hr [id number] IV Last administered on at 04:08; Start 08/09/17 at 17:00 Iohexol (Omnipaque 350 Inj) 75 ml STK-MED ONCE IVCONTRAST Last administered on 08/09/17at 18:22; Start 08/09/17 at 18:22; Stop 08/09/17 at 18:23; Status DC Dextrose/Sodium Chloride 500 ml @ 500 mls/hr BOLUS ONCE IV Last administered on 08/09/17at 20:00; Start 08/09/17 at 20:00; Stop 08/09/17 at 20:59; Status DC Sodium Bicarbonate (Sodium Bicarbonate 8.4% Inj) 50 meq ONCE ONCE IV PUSH Last administered on 08/09/17at 21:54; Start 08/09/17 at 21:15; Stop 08/09/17 at 21:16; Status DC Sodium Bicarbonate (Sodium Bicarbonate 8.4% Inj) 50 meq ONCE ONCE IV PUSH Last administered on 08/09/17at 21:55; Start 08/09/17 at 21:15; Stop 08/09/17 at 21:16; Status DC Levalbuterol HCl (Xopenex Neb) 1.25 mg Q6HR NEB NEB Last administered on at 22:31; Start 08/09/17 at 22:00; Stop 08/10/17 at 00:03; Status DC Docusate Sodium (Colace) 100 mg BID PO Last administered on 08/11/17at 08:39; Start 08/10/17 at 09:00 Levalbuterol HCl (Xopenex Neb) 1.25 mg Q2HR NEB PRN NEB SEE LABEL COMMENTS; Start 08/10/17 at 00:15; Stop 08/10/17 at 00:15; Status DC Levalbuterol HCl (Xopenex Neb) 1.25 mg Q2HR NEB PRN NEB SEE LABEL COMMENTS; Start 08/10/17 at 00:15 Digoxin (Lanoxin) 0.25 mg NOW ONCE PO ; Start 08/10/17 at 05:15; Stop 08/10/17 at 05:16; Status Cancel Sodium Chloride 500 ml @ 500 mls/hr Q1H ONCE IV Last administered on at 05:15; Start 08/10/17 at 05:15; Stop 08/10/17 at 06:14; Status DC Digoxin (Lanoxin Inj) 0.25 mg NOW ONCE IV PUSH Last administered on 08/10/17at 05:35; Start 08/10/17 at 05:15; Stop 08/10/17 at 05:16; Status DC Sodium Bicarbonate (Sodium Bicarbonate 8.4% Inj) 50 meq ONCE ONCE IV PUSH Last administered on 08/10/17at 05:34; Start 08/10/17 at 05:30; Stop 08/10/17 at 05:31; Status DC A/P Assessment and Plan Atrial fibrillation/flutter with RVR -s/pCardizem drip for rate control -on Cardizem 60 mg p.o. every 6 hours and amiodarone 400mg po DAILY -Continue telemetry -Dr. Doty, [place], evaluated the patient and TO HAVE CARDIOVERSION/ABLATION TOMORROW? -Eliquis for anticoagulation -Back on esmolol gtt due HR not well controlled. Hyponatremia -Chronic. Na 135 yesterday, no new lab today -Gentle IV fluid hydration -Monitor trend Chronic back pain -Continue home meds and morphine as needed, but reduce dose CHF - Chronic, stable. 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 Pt also on esmolol gtt. INGRID RN AND PT Discharge Planning PENDING CARDIAC IMPROVEMENT Jay Jacobo DO August 11, 2017 10:24
--- NOTE | 2017-08-11 11:38 | PD.CARD.PN ---
Subjective Subjective Remarks Follow up for Dr. Pickard No events overnight Episodes of confusion, knows where she is, less confused Objective Medications Current Medications Medications (Trade) Dose Ordered Sig/Sammy Route Start Time Stop Time Status Last Admin (NS Flush) 2 ml UNSCH PRN IV FLUSH 08/06/17 17:30 08/09/17 04:58 (NS Flush) 2 ml BID IV FLUSH 08/06/17 21:00 08/10/17 19:38 (Tylenol) 650 mg Q6H PRN PO 08/06/17 17:30 (Albuterol Neb) 2.5 mg Q2HR NEB PRN INH 08/06/17 17:30 Future Hold ([facility] Nursing Information) 1 [id number] XX 08/06/17 17:30 08/06/17 23:00 (Milk Of Magnesia Liq) 30 ml Q12H PRN PO 08/06/17 17:30 (Senokot) 17.2 mg Q12H PRN PO 08/06/17 17:30 (Dulcolax Supp) 10 mg DAILY PRN RECTAL 08/06/17 17:30 (Lactulose Liq) 30 ml DAILY PRN PO 08/06/17 17:30 (Eliquis) 5 mg BID PO 08/06/17 21:00 08/10/17 19:37 (Welchol) 625 mg TID PO 08/06/17 18:00 08/11/17 08:39 (Lasix) 40 mg DAILY PO 08/07/17 09:00 08/11/17 08:39 (Synthroid) 88 mcg DAILY@0600 PO 08/07/17 06:00 08/11/17 05:05 (Prinivil) 10 mg DAILY PO 08/07/17 09:00 Future Hold 08/09/17 10:16 (Ultram) 50 mg Q6H PRN PO 08/06/17 17:30 08/08/17 07:54 (Pepcid) 10 mg BID PO 08/06/17 21:00 08/11/17 08:39 (Zofran Odt) 4 mg Q6H PRN SL 08/06/17 18:00 08/09/17 09:55 Diltiazem HCl 125 mg/Sodium Chloride 125 ml @ 5 mls/hr TITRATE PRN IV 08/06/17 18:45 08/06/17 19:21 (Morphine Inj) 2 mg Q3H PRN IM 08/06/17 23:30 Future Hold 08/07/17 07:07 Esmolol HCl/ Sodium Chloride 250 ml @ 17.55 mls/ hr TITRATE PRN IV 08/07/17 08:00 08/10/17 18:49 (Cardizem) 60 mg Q6H PO 08/07/17 14:00 08/11/17 08:40 (Ona 5-325 Mg) 1 tab Q6H PRN PO 08/07/17 12:30 08/08/17 02:44 (Lopressor Inj) 2.5 mg Q4H PRN IV PUSH 08/07/17 15:30 (Cordarone) 400 mg Q12HR PO 08/07/17 21:00 08/12/17 20:59 08/11/17 08:39 Sodium Chloride 1,000 ml @ 70 mls/hr [id number] IV 08/09/17 17:00 08/11/17 04:08 (Colace) 100 mg BID PO 08/10/17 09:00 08/11/17 08:39 (Xopenex Neb) 1.25 mg Q2HR NEB PRN NEB 08/10/17 00:15 Vital Signs / I&O Vital Signs Date Time Temp Pulse Resp B/P (MAP) Pulse Ox O2 Delivery O2 Flow Rate FiO2 08/11/17 10:00 87 08/11/17 09:11 Nasal Cannula 3.00 08/11/17 09:00 94 08/11/17 08:00 98.5 85 20 116/75 (89) 77 08/11/17 08:00 85 08/11/17 07:00 74 08/11/17 06:00 71 08/11/17 04:00 97.5 76 21 104/54 (71) 08/11/17 04:00 76 08/11/17 02:00 87 08/11/17 00:00 97.9 74 20 106/55 (72) 08/11/17 00:00 74 08/10/17 22:00 73 08/10/17 20:00 79 08/10/17 20:00 97.8 79 39 102/67 (79) 08/10/17 20:00 79 102/67 08/10/17 18:49 76 103/64 08/10/17 18:00 81 08/10/17 17:00 108 08/10/17 16:00 120 08/10/17 16:00 98.1 120 20 130/60 (83) 84 08/10/17 15:30 92 129/76 08/10/17 15:00 86 08/10/17 14:00 82 08/10/17 13:00 77 08/10/17 12:30 96 116/77 08/10/17 12:00 98.3 108 23 138/61 (86) 79 08/10/17 12:00 108 I/O 08/10/17 08/10/17 08/10/17 08/11/17 08/11/17 08/11/17 07:00 15:00 23:00 07:00 15:00 23:00 Intake Total 500 ml 550 ml 1431 ml Output Total 300 ml 500 ml 300 ml Balance 200 ml 50 ml 1131 ml Intake Oral 0 ml 300 ml 120 ml IV Total 500 ml 250 ml 1311 ml Output Urine Total 300 ml 500 ml 300 ml Bladder Scan Volume Amount 424 ml # Voids 1 # Bowel Movements 0 0 Physical Exam GENERAL: NAD SKIN: Warm and dry. HEAD: Atraumatic. Normocephalic. EYES: Pupils equal and round. No scleral icterus. No injection or drainage. ENT: No nasal bleeding or discharge. Mucous membranes pink and moist. NECK: Trachea midline. No JVD. CARDIOVASCULAR: Irregularly irregular RESPIRATORY: No accessory muscle use. Decreased breath sounds bilaterally GASTROINTESTINAL: Abdomen soft, non-tender, nondistended. Hepatic and splenic margins not palpable. MUSCULOSKELETAL: Extremities without clubbing, cyanosis, or edema. No obvious deformities. NEUROLOGICAL: Awake and alert. No obvious cranial nerve deficits. Motor grossly within normal limits. Five out of 5 muscle strength in the arms and legs. Normal speech. PSYCHIATRIC: Appropriate mood Laboratory Laboratory Tests Test 08/10/17 13:54 08/10/17 18:00 08/11/17 04:00 Ammonia 21 MCMOL/L Urine Color Red Urine Turbidity Cloudy Urine pH 6.0 Urine Specific [place] 1.030 Urine Protein 300 OR GREATER mg/dL Urine Glucose (UA) NEG mg/dL Urine Ketones 40 mg/dL Urine Occult Blood MOD Urine Nitrite NEG Urine Bilirubin NEG Urine Urobilinogen 0.2 MG/DL Urine Leukocyte Esterase TRACE Urine RBC /hpf Urine WBC 50-99 /hpf Urine WBC Clumps OCC Urine Squamous Epithelial Cells 0-5 /hpf Urine Bacteria OCC /hpf White Blood Count 12.4 TH/MM3 Red Blood Count 3.71 MIL/MM3 Hemoglobin 11.3 GM/DL Hematocrit 34.1 % Mean Corpuscular Volume 91.8 FL Mean Corpuscular Hemoglobin 30.5 PG Mean Corpuscular Hemoglobin Concent 33.2 % Red Cell Distribution Width 16.2 % Platelet Count 362 TH/MM3 Mean Platelet Volume 8.6 FL Neutrophils (%) (Auto) 85.1 % Lymphocytes (%) (Auto) 5.3 % Monocytes (%) (Auto) 9.3 % Eosinophils (%) (Auto) 0.0 % Basophils (%) (Auto) 0.3 % Neutrophils # (Auto) 10.5 TH/MM3 Lymphocytes # (Auto) 0.7 TH/MM3 Monocytes # (Auto) 1.2 TH/MM3 Eosinophils # (Auto) 0.0 TH/MM3 Basophils # (Auto) 0.0 TH/MM3 CBC Comment DIFF FINAL Differential Comment Blood Urea Nitrogen 35 MG/DL Creatinine 1.14 MG/DL Random Glucose 102 MG/DL Total Protein 5.8 GM/DL Albumin 2.9 GM/DL Calcium Level 7.0 MG/DL Phosphorus Level 2.0 MG/DL Magnesium Level 2.3 MG/DL Alkaline Phosphatase 96 U/L Aspartate Amino Transf (AST/SGOT) 38 U/L Alanine Aminotransferase (ALT/SGPT) 60 U/L Total Bilirubin 0.3 MG/DL Sodium Level 146 MEQ/L Potassium Level 4.1 MEQ/L Chloride Level 113 MEQ/L Carbon Dioxide Level 18.5 MEQ/L Anion Gap 15 MEQ/L Estimat Glomerular Filtration Rate 45 ML/MIN Protein Corrected Calcium 7.7 MG/DL Assessment and Plan Problem List: (1) Atrial fibrillation with RVR ICD Codes: I48.91 - Unspecified atrial fibrillation Status: Chronic (2) CHF (congestive heart failure) ICD Codes: I50.9 - Heart failure, unspecified Status: Chronic (3) Elevated troponin ICD Codes: R74.8 - Abnormal levels of other serum enzymes (4) Chronic CHF ICD Codes: I50.9 - Heart failure, unspecified Status: Acute (5) CKD (chronic kidney disease) ICD Codes: N18.9 - Chronic kidney disease, unspecified Status: Acute Assessment and Plan 1) Afib with RVR Controlled on Esmolol camille Cartwright'víctor Riggs, will plan to hold tomorrow morning dose for possible ablation Will discuss with Dr. Pickard 2) Elevated troponin No chest pain Most likely type 2 Discussed consideration of ischemic evaluation, but patient told me to " leave it alone" Attempted to discuss with her, does not want anything done for the coronaries "I have no chest pain" Richmond Nugent DO August 11, 2017 11:38
[2017-08-11] MEDS: RESP: LEVALBUTEROL HYDROCHLORIDE 1.25 MG/3 ML NEB (PRN) NEB ×2 (16:15→20:10)
[2017-08-12] VITALS (12 sets, daily range): BP systolic 106–124; BP diastolic 58–82; PULSE 77–142; RESP 19–26; TEMP 98–98.8; O2SAT 91–100
[2017-08-12] MEDS: DILTIAZEM HCL 60 MG TAB PO SCH ×4 (02:00→20:55)
[2017-08-12] MEDS: ESMOLOL DRIP INJ PREMIX 250 ML IV PRN ×6 (03:39→23:26)
[2017-08-12] MEDS: SODIUM CHLOR 0.9% 1000 ML INJ 1,000 ML IV SCH ×3 (03:42→23:08)
[2017-08-12] MEDS: LEVOTHYROXINE SODIUM 88 MCG TAB PO SCH (05:40)
[2017-08-12] MEDS: AMIODARONE 200 MG TAB PO SCH (08:23)
[2017-08-12] MEDS: METOPROLOL TARTRATE 5 MG/5 ML VIAL IV PUSH PRN ×2 (08:24→16:54)
[2017-08-12] MEDS: FUROSEMIDE 40 MG TAB PO SCH (08:25)
[2017-08-12] MEDS: FAMOTIDINE 20 MG TAB PO SCH ×2 (08:25→20:56)
[2017-08-12] MEDS: SODIUM CHLORIDE 0.9% FLUSH 10 ML FLUSH IV FLUSH SCH ×2 (08:25→20:55)
[2017-08-12] MEDS: DOCUSATE SODIUM 100 MG CAP PO SCH ×3 (08:25→20:55)
[2017-08-12 08:27] LABS: INTERNATIONAL NORMALIZED RATIO 1.2 RATIO; PROTHROMBIN TIME - PATIENT 12.4 SEC (9.8-11.6)
[2017-08-12 08:30] LABS: AUTOMATED NEUTROPHIL # 9.7 TH/MM3 (1.8-7.7); BASOPHIL % 0.3 % (0.0-2.0); EOSINOPHIL % 0.1 % (0.0-4.0); HEMATOCRIT 32.8 % (35.0-46.0); HEMOGLOBIN 10.8 GM/DL (11.6-15.3); LYMPH % 7.6 % (9.0-44.0); LYMPHOCYTE # 0.9 TH/MM3 (1.0-4.8); MEAN CELL VOLUME 91.5 FL (80.0-100.0); MEAN CORPUSCULAR HGB CONC 32.8 % (32.0-36.0); MEAN PLATELET VOLUME 8.3 FL (7.0-11.0); MONO % 9.5 % (0.0-8.0); MONOCYTE # 1.1 TH/MM3 (0-0.9); NEUT % 82.5 % (16.0-70.0); PLATELET COUNT 368 TH/MM3 (150-450); RED BLOOD COUNT 3.58 MIL/MM3 (4.00-5.30); RED CELL DISTRIBUTION WIDTH 16.1 % (11.6-17.2); WHITE BLOOD COUNT 11.7 TH/MM3 (4.0-11.0)
[2017-08-12 08:45] LABS: ALBUMIN 2.6 GM/DL (3.4-5.0); CALCIUM 6.7 MG/DL (8.5-10.1); CALCIUM-PROTEIN CORRECTED 7.5 MG/DL (8.5-10.1); CREATININE 0.8 MG/DL (0.50-1.00); MAGNESIUM 2.3 MG/DL (1.5-2.5); PHOSPHORUS 1.4 MG/DL (2.5-4.9); TOTAL BILIRUBIN ADULT 0.3 MG/DL (0.2-1.0); TOTAL PROTEIN 5.5 GM/DL (6.4-8.2)
[2017-08-12] MEDS: COLESEVELAM HCL 625 MG TAB PO SCH ×3 (09:00→18:00)
--- NOTE | 2017-08-12 09:39 | HHI.PR ---
Subjective Remarks 86-year-old female presented to emergency department at [place] because of fast heart rate. She has a history of atrial fibrillation. She has had 2 ablations done in the past. She had cardioversion done last summer. She is on Eliquis. She is not on any medication for rate control now. The patient has been having a hard fast heart rate for several days at least. She denies any chest pain. She had an EKG in May of this year which showed sinus rhythm. She takes lisinopril for high blood pressure. She does have chronic pain and is on tramadol. Also hypothyroidism on levothyroxine. 08/07: Heart rate remains from 90-130 on Cardizem infusion 15 mg/h. still remains what appears to be a flutter with RVR. Due to Cardizem infusion shortage, will start Cardizem 60 mg p.o. every 6 hours and attempt weaning Cardizem IV. For rate control use esmolol if needed as patient is allergic to Amio 5-17 Pt seen earlier this morning around 8:15am Pt doesn't feel any palpitations. Pt denies any CP/worsening SOB/n/v complains that bed is not very comfortable and also the tape from the pulse ox bothering her discussed w RN, pt was restarted on the esmolol gtt, she did get her amiodarone po w not much improvement of her HR 5-18 is HYPOTENSIVE TODAY WILL GIVE A NS BOLUS COMPLAINS OF RIGHT HAND TINGLING AND RIGHT HAD IS PURPLISH/BLUISH DW RN AND PT TO HAVE CARDIOVERSION TODAY REPLACE CALCIUM FLUID BOLUS 5-19 NOTES FROM LAST NIGHT REMOVED HAD RIGHT SIDE CENTRAL LINE THAT THE PATIENT PULLED OUT ON HER OWN HAS SOFT RESTRAINTS NOW NEEDS A PICC FOR IV ACCESS DW RN AND PT STILL REMAINS CONFUSED RIGHT ARM WITH BETTER FLOW AT THIS TIME 5-20 SEEN BY NEUROLOGY LESS CONFUSION BETTER FLOW TO RIGHT ARM DW RN AND PT AM LABS MAYBE FOR ABLATION/CARDIOVERSION TOMORROW DEPENDING ON DR DOTY SCHEDULE 5- still having issues with heart rate Hopefully to go for cardiac ablation/cardioversion today currently on the metoprolol every 4 hours to try and control the rate Patient is quite anxious and confused at this time Discussed with RN and patient Objective Vitals Vital Signs Date Time Temp Pulse Resp B/P (MAP) Pulse Ox O2 Delivery O2 Flow Rate FiO2 5/21/18 08:15 94 Nasal Cannula 3.00 08/12/17 08:07 137 116/82 08/12/17 05:20 127 117/74 08/12/17 03:39 146 90/58 08/12/17 03:00 102 83/58 08/12/17 02:00 130 08/12/17 01:42 98 130/62 08/12/17 00:00 115 19 112/60 (77) 91 08/12/17 00:00 108 08/11/17 22:00 90 08/11/17 21:30 92 117/56 08/11/17 20:10 89 Nasal Cannula 4.00 08/11/17 20:00 97.9 85 20 117/58 (77) 87 08/11/17 20:00 89 08/11/17 18:50 88 122/53 08/11/17 18:00 101 122/53 08/11/17 18:00 101 08/11/17 17:00 112 08/11/17 16:25 117 125/60 08/11/17 16:00 98.3 95 20 125/60 (81) 88 08/11/17 16:00 95 08/11/17 15:00 97 08/11/17 14:00 83 08/11/17 13:00 90 08/11/17 12:00 98.4 82 21 119/69 (86) 69 08/11/17 12:00 82 08/11/17 11:00 81 08/11/17 10:00 87 I/O 08/11/17 08/11/17 08/11/17 08/12/17 08/12/17 08/12/17 07:00 15:00 23:00 07:00 15:00 23:00 Intake Total 1431 ml 1300 ml 1010 ml Output Total 300 ml 1200 ml 2000 ml Balance 1131 ml 100 ml -990 ml Intake Oral 120 ml 300 ml 0 ml IV Total 1311 ml 1000 ml 1010 ml Output Urine Total 300 ml 1200 ml 2000 ml # Bowel Movements 0 0 Result Diagram: 08/12/17 0507 08/12/17 0507 Other Results Laboratory Tests Test 08/09/17 16:25 08/09/17 16:31 08/09/17 16:51 08/09/17 20:53 Blood Gas Puncture Site RT RADIAL LT BRACHIAL Blood Gas Patient Temperature 98.6 98.6 Blood Gas HCO3 14 mmol/L 14 mmol/L Blood Gas Base Excess -11.0 mmol/L -11.4 mmol/L Blood Gas Oxygen Saturation 96 % 95 % Arterial Blood pH 7.31 7.29 Arterial Blood Partial Pressure CO2 29 mmHg 30 mmHg Arterial Blood Partial Pressure O2 114 mmHg 97 mmHg Arterial Blood Oxygen Content 15.2 Vol % 14.8 Vol % Arterial Blood Carboxyhemoglobin 0.6 % 0.7 % Arterial Blood Methemoglobin 0.9 % 1.0 % Blood Gas Hemoglobin 11.1 G/DL 11.0 G/DL Oxygen Delivery Device NASAL CANNULA NASAL CANNULA Blood Gas Liter Flow 3 L/M 3 L/M White Blood Count 12.4 TH/MM3 Red Blood Count 3.61 MIL/MM3 Hemoglobin 11.1 GM/DL Hematocrit 33.1 % Mean Corpuscular Volume 91.9 FL Mean Corpuscular Hemoglobin 30.9 PG Mean Corpuscular Hemoglobin Concent 33.6 % Red Cell Distribution Width 15.7 % Platelet Count 335 TH/MM3 Mean Platelet Volume 8.5 FL Neutrophils (%) (Auto) 89.8 % Lymphocytes (%) (Auto) 5.9 % Monocytes (%) (Auto) 4.1 % Eosinophils (%) (Auto) 0.0 % Basophils (%) (Auto) 0.2 % Neutrophils # (Auto) 11.1 TH/MM3 Lymphocytes # (Auto) 0.7 TH/MM3 Monocytes # (Auto) 0.5 TH/MM3 Eosinophils # (Auto) 0.0 TH/MM3 Basophils # (Auto) 0.0 TH/MM3 CBC Comment DIFF FINAL Differential Comment Prothrombin Time 14.3 SEC Prothromb Time International Ratio 1.4 RATIO Activated Partial Thromboplast Time 33.8 SEC Fibrinogen 360 mg/dL Blood Urea Nitrogen 33 MG/DL Creatinine 1.06 MG/DL Random Glucose 109 MG/DL Calcium Level 7.7 MG/DL Sodium Level 138 MEQ/L Potassium Level 4.3 MEQ/L Chloride Level 110 MEQ/L Carbon Dioxide Level 12.9 MEQ/L Anion Gap 15 MEQ/L Estimat Glomerular Filtration Rate 49 ML/MIN Total Creatine Kinase 119 U/L Troponin I 0.11 NG/ML Blood Gas Inspired Oxygen 32 % Test 08/09/17 21:48 08/09/17 23:11 08/10/17 00:27 08/10/17 04:44 White Blood Count 11.5 TH/MM3 Red Blood Count 3.29 MIL/MM3 Hemoglobin 10.0 GM/DL Hematocrit 30.6 % Mean Corpuscular Volume 92.9 FL Mean Corpuscular Hemoglobin 30.5 PG Mean Corpuscular Hemoglobin Concent 32.8 % Red Cell Distribution Width 16.4 % Platelet Count 356 TH/MM3 Mean Platelet Volume 9.2 FL Neutrophils (%) (Auto) 90.1 % Lymphocytes (%) (Auto) 5.4 % Monocytes (%) (Auto) 4.4 % Eosinophils (%) (Auto) 0.0 % Basophils (%) (Auto) 0.1 % Neutrophils # (Auto) 10.3 TH/MM3 Lymphocytes # (Auto) 0.6 TH/MM3 Monocytes # (Auto) 0.5 TH/MM3 Eosinophils # (Auto) 0.0 TH/MM3 Basophils # (Auto) 0.0 TH/MM3 CBC Comment DIFF FINAL Differential Comment Lactic Acid Level 1.5 mmol/L Blood Urea Nitrogen 34 MG/DL Creatinine 1.19 MG/DL Random Glucose 130 MG/DL Total Protein 5.6 GM/DL Albumin 2.8 GM/DL Calcium Level 7.2 MG/DL Alkaline Phosphatase 106 U/L Aspartate Amino Transf (AST/SGOT) 40 U/L Alanine Aminotransferase (ALT/SGPT) 60 U/L Total Bilirubin 0.4 MG/DL Sodium Level 140 MEQ/L Potassium Level 4.4 MEQ/L Chloride Level 107 MEQ/L Carbon Dioxide Level 17.4 MEQ/L Anion Gap 16 MEQ/L Estimat Glomerular Filtration Rate 43 ML/MIN Protein Corrected Calcium 8.0 MG/DL Troponin I 0.49 NG/ML Blood Gas Puncture Site LT RADIAL Blood Gas Patient Temperature 98.6 Blood Gas HCO3 17 mmol/L Blood Gas Base Excess -8.0 mmol/L Blood Gas Oxygen Saturation 95 % Arterial Blood pH 7.34 Arterial Blood Partial Pressure CO2 31 mmHg Arterial Blood Partial Pressure O2 101 mmHg Arterial Blood Oxygen Content 15.1 Vol % Arterial Blood Carboxyhemoglobin 0.6 % Arterial Blood Methemoglobin 1.1 % Blood Gas Hemoglobin 11.1 G/DL Oxygen Delivery Device NASAL CANNULA Blood Gas Inspired Oxygen 3 % Test 08/10/17 06:25 08/10/17 13:54 08/10/17 18:00 08/11/17 04:00 White Blood Count 11.1 TH/MM3 12.4 TH/MM3 Red Blood Count 3.50 MIL/MM3 3.71 MIL/MM3 Hemoglobin 10.6 GM/DL 11.3 GM/DL Hematocrit 32.1 % 34.1 % Mean Corpuscular Volume 91.6 FL 91.8 FL Mean Corpuscular Hemoglobin 30.3 PG 30.5 PG Mean Corpuscular Hemoglobin Concent 33.1 % 33.2 % Red Cell Distribution Width 16.0 % 16.2 % Platelet Count 346 TH/MM3 362 TH/MM3 Mean Platelet Volume 8.2 FL 8.6 FL Neutrophils (%) (Auto) 85.5 % 85.1 % Lymphocytes (%) (Auto) 5.3 % 5.3 % Monocytes (%) (Auto) 9.0 % 9.3 % Eosinophils (%) (Auto) 0.0 % 0.0 % Basophils (%) (Auto) 0.2 % 0.3 % Neutrophils # (Auto) 9.5 TH/MM3 10.5 TH/MM3 Lymphocytes # (Auto) 0.6 TH/MM3 0.7 TH/MM3 Monocytes # (Auto) 1.0 TH/MM3 1.2 TH/MM3 Eosinophils # (Auto) 0.0 TH/MM3 0.0 TH/MM3 Basophils # (Auto) 0.0 TH/MM3 0.0 TH/MM3 CBC Comment DIFF FINAL DIFF FINAL Differential Comment Blood Urea Nitrogen 34 MG/DL 35 MG/DL Creatinine 1.22 MG/DL 1.14 MG/DL Random Glucose 119 MG/DL 102 MG/DL Total Protein 5.4 GM/DL 5.8 GM/DL Albumin 2.7 GM/DL 2.9 GM/DL Calcium Level 7.1 MG/DL 7.0 MG/DL Phosphorus Level 2.6 MG/DL 2.0 MG/DL Magnesium Level 2.0 MG/DL 2.3 MG/DL Alkaline Phosphatase 101 U/L 96 U/L Aspartate Amino Transf (AST/SGOT) 37 U/L 38 U/L Alanine Aminotransferase (ALT/SGPT) 58 U/L 60 U/L Total Bilirubin 0.4 MG/DL 0.3 MG/DL Sodium Level 144 MEQ/L 146 MEQ/L Potassium Level 4.2 MEQ/L 4.1 MEQ/L Chloride Level 110 MEQ/L 113 MEQ/L Carbon Dioxide Level 21.0 MEQ/L 18.5 MEQ/L Anion Gap 13 MEQ/L 15 MEQ/L Estimat Glomerular Filtration Rate 42 ML/MIN 45 ML/MIN Hemoglobin A1c 5.8 % Protein Corrected Calcium 8.0 MG/DL 7.7 MG/DL Troponin I 0.53 NG/ML Free Thyroxine 1.14 NG/DL Thyroid Stimulating Hormone 3rd Gen 7.000 uIU/ML Ammonia 21 MCMOL/L Urine Color Red Urine Turbidity Cloudy Urine pH 6.0 Urine Specific [place] 1.030 Urine Protein 300 OR GREATER mg/dL Urine Glucose (UA) NEG mg/dL Urine Ketones 40 mg/dL Urine Occult Blood MOD Urine Nitrite NEG Urine Bilirubin NEG Urine Urobilinogen 0.2 MG/DL Urine Leukocyte Esterase TRACE Urine RBC /hpf Urine WBC 50-99 /hpf Urine WBC Clumps OCC Urine Squamous Epithelial Cells 0-5 /hpf Urine Bacteria OCC /hpf Test 08/12/17 05:07 White Blood Count 11.7 TH/MM3 Red Blood Count 3.58 MIL/MM3 Hemoglobin 10.8 GM/DL Hematocrit 32.8 % Mean Corpuscular Volume 91.5 FL Mean Corpuscular Hemoglobin 30.0 PG Mean Corpuscular Hemoglobin Concent 32.8 % Red Cell Distribution Width 16.1 % Platelet Count 368 TH/MM3 Mean Platelet Volume 8.3 FL Neutrophils (%) (Auto) 82.5 % Lymphocytes (%) (Auto) 7.6 % Monocytes (%) (Auto) 9.5 % Eosinophils (%) (Auto) 0.1 % Basophils (%) (Auto) 0.3 % Neutrophils # (Auto) 9.7 TH/MM3 Lymphocytes # (Auto) 0.9 TH/MM3 Monocytes # (Auto) 1.1 TH/MM3 Eosinophils # (Auto) 0.0 TH/MM3 Basophils # (Auto) 0.0 TH/MM3 CBC Comment DIFF FINAL Differential Comment Prothrombin Time 12.4 SEC Prothromb Time International Ratio 1.2 RATIO Blood Urea Nitrogen 21 MG/DL Creatinine 0.80 MG/DL Random Glucose 91 MG/DL Total Protein 5.5 GM/DL Albumin 2.6 GM/DL Calcium Level 6.7 MG/DL Phosphorus Level 1.4 MG/DL Magnesium Level 2.3 MG/DL Alkaline Phosphatase 87 U/L Aspartate Amino Transf (AST/SGOT) 29 U/L Alanine Aminotransferase (ALT/SGPT) 50 U/L Total Bilirubin 0.3 MG/DL Sodium Level 147 MEQ/L Potassium Level 3.2 MEQ/L Chloride Level 111 MEQ/L Carbon Dioxide Level 24.0 MEQ/L Anion Gap 12 MEQ/L Estimat Glomerular Filtration Rate 68 ML/MIN Protein Corrected Calcium 7.5 MG/DL Imaging Last Impressions Chest X-Ray 08/10/17 0000 Signed Impressions: Service Date/Time: Thursday, August 10, 2017 05:26 - CONCLUSION: 1. Right central line in superior vena cava without pneumothorax. José Palacio MD Head CT 08/09/17 1639 Signed Impressions: Service Date/Time: Wednesday, August 09, 2017 17:52 - CONCLUSION: No acute disease. Abdelrahman Leary MD Head CTA 08/09/17 1624 Signed Impressions: Service Date/Time: Wednesday, August 09, 2017 17:52 - CONCLUSION: Mild fusiform dilatation of the cavernous portion of the internal carotid artery on the left. The more distal flow is normal. Abdelrahman Leary MD Neck CTA 08/09/17 0000 Signed Impressions: Service Date/Time: Wednesday, August 09, 2017 17:52 - CONCLUSION: No significant stenosis is seen. Abdelrahman Leary MD Abdomen/Pelvis CT 08/09/17 0000 Signed Impressions: Service Date/Time: Wednesday, August 09, 2017 22:20 - CONCLUSION: 1. Moderate right pleural effusion and mild left pleural effusion with accompanying atelectasis. 2. Mild amount of free fluid in the lower pelvic peritoneal cavity/cul-de-sac. 3. Edema seen throughout the subcutaneous tissues likely from anasarca. 4. Bladder diverticulum. 5. Contrast in the bladder and kidneys from prior administration. Abdelrahman Leary MD Abdomen X-Ray 08/09/17 0000 Signed Impressions: Service Date/Time: Wednesday, August 09, 2017 20:35 - CONCLUSION: 1. Mild nonspecific colonic dilatation. 2. Status post vertebroplasty of L2. 3. 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 4. 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 Abdelrahman Leary MD Objective Remarks GENERAL: AWAKE ALERT AND ORIENTED X2 - TALKATIVE AND COOPERATIVE-remains in upper extremity soft restraints SKIN: Warm and dry. RIGHT HAND BLUISH/PURPLE HEAD: Atraumatic. Normocephalic. EYES: Pupils equal and round. No scleral icterus. No injection or drainage. EOMI ENT: No nasal bleeding or discharge. Mucous membranes pink and moist. TONGUE MIDLINE NECK: Trachea midline. No JVD. SUPPLE CARDIOVASCULAR: IRRegular rate and rhythm. S1, S2 NO S3 OR S4 RESPIRATORY: No accessory muscle use. Clear to auscultation. Breath sounds equal bilaterally. GASTROINTESTINAL: Abdomen soft, non-tender, nondistended. Hepatic and splenic margins not palpable. MUSCULOSKELETAL: Extremities without clubbing, cyanosis, or edema. No obvious deformities. NEUROLOGICAL: Awake and alert. No obvious cranial nerve deficits. Motor grossly within normal limits. 4 out of 5 muscle strength in the arms and legs. Normal speech. PURPLISH RIGHT HAND MORE THAN LEFT HAS IMPROVED SINCE YESTERDAY PSYCHIATRIC: MORE Appropriate mood and affect; insight and judgment ABnormal. NOT AT BASELINE PER supervisor knitting REASON FOR PROCEDURE Central venous access 5- PROCEDURE PERFORMED Central line placement: RIJ central line placement CONSENT Informed consent for procedure was obtained from . The risks and benefits of the procedure were discussed to include but limited to bleeding, clot formation, infection, and even . ANESTHESIA Local injection of 1% Lidocaine DESCRIPTION OF THE PROCEDURE The patient was placed in supine, mild Trendelenburg position. The area was exposed and cleansed with ChloraPrep, times two. Large sterile drape was used to cover the patient, with the site exposed, under sterile conditions including cap, face mask, sterile gown, and sterile gloves. On single attempt, the introducer needle was inserted with negative pressure in syringe and venous flash was obtained. The guide wire was then advanced without any restriction and the needle was removed. The dilator was used without any complications. Using Seldinger technique the 20 cm 7F trip[le lumen catheter was advanced over the guide wire to a depth of 17 centimeters. The guide wire was removed. All ports were aspirated with dark venous blood return and flushed easily with sterile saline. All ports were capped. Antibiotic disc was placed around central line at puncture site. The central line was secured to the skin with two interrupted 2.0 silk sutures. The area was bandaged with sterile see- through central line bandage. RADIOLOGICAL DATA Ultrasound guidance was used to locate RIJ. Doppler/color flow was used to confirm venous flow. COMPLICATIONS: No apparent complications ESTIMATED BLOOD LOSS: Less than 1 cc. Desi Quick MD August 10, 2017 05:17 <Electronically signed by Desi Quick MD> 08/10/17 0517 PATIENT PULLED LINE EARLY THIS MORNING ALREADY HAD NO ACCESS FOR LABS ETC Medications and IVs Current Medications Metoprolol Tartrate (Lopressor Inj) 5 mg ONCE ONCE IV PUSH Last administered on 08/06/17 15:53; Start 08/06/17 at 15:45; Stop 08/06/17 at 15:46; Status DC Sodium Chloride 250 ml @ 250 mls/hr BOLUS ONCE IV Last administered on 16:34; Start 08/06/17 at 16:30; Stop 08/06/17 at 17:29; Status DC Sodium Chloride 1,000 ml @ 100 mls/hr Q10H IV Last administered on 08/09/17 14:35; Start 08/06/17 at 16:30; Stop 08/10/17 at 05:45; Status DC Ondansetron HCl (Zofran Inj) 4 mg ONCE ONCE IV PUSH Last administered on 17:32; Start 08/06/17 at 17:15; Stop 08/06/17 at 17:16; Status DC Morphine Sulfate (Morphine Inj) 4 mg ONCE ONCE IV PUSH Last administered on 17:33; Start 08/06/17 at 17:15; Stop 08/06/17 at 17:16; Status DC Sodium Chloride (NS Flush) 2 ml UNSCH PRN IV FLUSH FLUSH AFTER USING IV ACCESS Last administered on 08/09/17 04:58; Start 08/06/17 at 17:30 Sodium Chloride (NS Flush) 2 ml BID IV FLUSH Last administered on 08/11/17at 21: 33; Start 08/06/17 at 21:00 Acetaminophen (Tylenol) 650 mg Q6H PRN PO FEVER >101F; Start 08/06/17 at 17:30 Ondansetron HCl (Zofran Inj) 4 mg Q6H PRN IV PUSH NAUSEA OR VOMITING; Start at 17:30; Stop 08/06/17 at 17:49; Status DC Albuterol Sulfate (Albuterol Neb) 2.5 mg Q2HR NEB PRN INH SOB/WHEEZING; Start 08/06/17 at 17:30; Status Future Hold Miscellaneous Information ([facility] Nursing Information) 1 [id number] Last administered on 5/15/18at 23:00; Start 08/06/17 at 17:30 Senna/Docusate Sodium (Beatrice-Colace) 1 tab BID PO Last administered on at 21:54; Start 08/06/17 at 21:00; Stop 08/09/17 at 22:55; Status DC Magnesium Hydroxide (Milk Of Magnesia Liq) 30 ml Q12H PRN PO Mild constipation ; Start 08/06/17 at 17:30 Sennosides (Senokot) 17.2 mg Q12H PRN PO Moderate constipation; Start 08/06/17 at 17:30 Bisacodyl (Dulcolax Supp) 10 mg DAILY PRN RECTAL SEVERE CONSITIPATION; Start at 17:30 Lactulose (Lactulose Liq) 30 ml DAILY PRN PO SEVERE CONSITIPATION; Start at 17:30 Apixaban (Eliquis) 5 mg BID PO Last administered on 08/10/17at 19:37; Start at 21:00; Stop 08/12/17 at 09:04; Status DC Colesevelam HCl (Welchol) 625 mg TID PO Last administered on 08/11/17at 18:41; Start 08/06/17 at 18:00 Furosemide (Lasix) 40 mg DAILY PO Last administered on 08/12/17at 08:25; Start 08/07/17 at 09:00 Levothyroxine Sodium (Synthroid) 88 mcg DAILY@0600 PO Last administered on 08/12at 05:40; Start 08/07/17 at 06:00 Lisinopril (Prinivil) 10 mg DAILY PO Last administered on 08/09/17at 10:16; Start 08/07/17 at 09:00; Status Future Hold Tramadol HCl (Ultram) 50 mg Q6H PRN PO PAIN SCALE 1 TO 10 Last administered on 08/08/17at 07:54; Start 08/06/17 at 17:30 Famotidine (Pepcid) 10 mg BID PO Last administered on 08/12/17at 08:25; Start at 21:00 Ondansetron HCl (Zofran Odt) 4 mg Q6H PRN SL NAUSEA OR VOMITING Last administered on 08/09/17 09:55; Start 08/06/17 at 18:00 Diltiazem HCl 125 mg/Sodium Chloride 125 ml @ 5 mls/hr TITRATE PRN IV tachycardia Last administered on 08/06/17 19:21; Start 08/06/17 at 18:45 Diltiazem HCl (Cardizem Inj) 14 mg BOLUS ONCE IV PUSH ; Start 08/06/17 at 18:45 ; Stop 08/06/17 at 18:46; Status Cancel Diltiazem HCl (Cardizem Inj) 14 mg BOLUS ONCE IV PUSH Last administered on 19:25; Start 08/06/17 at 19:30; Stop 08/06/17 at 19:31; Status DC Morphine Sulfate (Morphine Inj) 2 mg Q3H PRN IM Pain 6-10 Last administered on 08/07/17 07:07; Start 08/06/17 at 23:30; Status Future Hold Dexmedetomidine HCl 200 mcg/ Sodium Chloride 52 ml @ 3.01 mls/hr TITRATE PRN IV SEDATION Last administered on 08/06/17at 23:36; Start 08/06/17 at 23:30; Stop 08/10/17 at 05:44; Status DC Esmolol HCl/ Sodium Chloride 250 ml @ 17.55 mls/ hr TITRATE PRN IV Blood Pressure Management Last administered on 08/12/17 08:07; Start 08/07/17 at 08: 00 Diltiazem HCl (Cardizem) 60 mg Q6H PO Last administered on 08/12/17 08:25; Start 08/07/17 at 14:00 Diltiazem HCl (Cardizem) 60 mg STAT ONCE PO Last administered on 08/07/17at 08: 25; Start 08/07/17 at 08:15; Stop 08/07/17 at 08:16; Status DC Acetaminophen/ Hydrocodone Bitart (Franklin 5-325 Mg) 1 tab Q6H PRN PO PAIN 6-10 Last administered on 08/08/17at 02:44; Start 08/07/17 at 12:30 Morphine Sulfate (Morphine Inj) 0.5 mg ONCE ONCE IV PUSH Last administered on 08/07/17at 13:19; Start 08/07/17 at 12:30; Stop 08/07/17 at 12:31; Status DC Metoprolol Tartrate (Lopressor Inj) 2.5 mg Q4H PRN IV PUSH HR>105 Last administered on 08/12/17at 08:24; Start 08/07/17 at 15:30 Amiodarone HCl (Cordarone) 400 mg Q12HR PO Last administered on 08/12/17at 08:23 ; Start 08/07/17 at 21:00; Stop 08/12/17 at 20:59 Heparin Sodium/ Sodium Chloride 0 ml @ As Directed STK-MED ONCE .ROUTE ; Start 08/09/17 at 06:45; Stop 08/09/17 at 06:46; Status DC Isoproterenol HCl 0 ml @ As Directed STK-MED ONCE IV ; Start 08/09/17 at 06:59; Stop 08/09/17 at 07:00; Status DC Heparin Sodium/ Dextrose 250 ml @ As Directed STK-MED ONCE .ROUTE ; Start 08/09 at 06:59; Stop 08/09/17 at 07:00; Status DC Fentanyl Citrate (fentaNYL INJ) 200 mcg STK-MED ONCE .ROUTE ; Start 08/09/17 at 06:59; Stop 08/09/17 at 07:00; Status DC Midazolam HCl (Versed Inj) 2 mg STK-MED ONCE .ROUTE ; Start 08/09/17 at 06:59; Stop 08/09/17 at 07:00; Status DC Protamine Sulfate (Protamine Sulfate Inj) 50 mg STK-MED ONCE .ROUTE ; Start at 07:00; Stop 08/09/17 at 07:01; Status DC Heparin Sodium (Porcine) (Heparin Inj) 10,000 units STK-MED ONCE .ROUTE ; Start 08/09/17 at 07:00; Stop 08/09/17 at 07:01; Status DC Famotidine (Pepcid Inj) 20 mg STK-MED ONCE .ROUTE ; Start 08/09/17 at 07:00; Stop 08/09/17 at 07:01; Status DC Sodium Chloride 500 ml @ 500 mls/hr BOLUS ONCE IV Last administered on at 10:00; Start 08/09/17 at 10:00; Stop 08/09/17 at 10:59; Status DC Calcium Chloride 1 gm/Sodium Chloride 110 ml @ 110 mls/hr ONCE ONCE IV Last administered on 08/09/17at 11:19; Start 08/09/17 at 11:00; Stop 08/09/17 at 11:59 ; Status DC Sodium Chloride 1,000 ml @ 70 mls/hr [id number] IV Last administered on at 08:04; Start 08/09/17 at 17:00 Iohexol (Omnipaque 350 Inj) 75 ml STK-MED ONCE IVCONTRAST Last administered on 08/09/17at 18:22; Start 08/09/17 at 18:22; Stop 08/09/17 at 18:23; Status DC Dextrose/Sodium Chloride 500 ml @ 500 mls/hr BOLUS ONCE IV Last administered on 08/09/17at 20:00; Start 08/09/17 at 20:00; Stop 08/09/17 at 20:59; Status DC Sodium Bicarbonate (Sodium Bicarbonate 8.4% Inj) 50 meq ONCE ONCE IV PUSH Last administered on 08/09/17at 21:54; Start 08/09/17 at 21:15; Stop 08/09/17 at 21:16; Status DC Sodium Bicarbonate (Sodium Bicarbonate 8.4% Inj) 50 meq ONCE ONCE IV PUSH Last administered on 08/09/17at 21:55; Start 08/09/17 at 21:15; Stop 08/09/17 at 21:16; Status DC Levalbuterol HCl (Xopenex Neb) 1.25 mg Q6HR NEB NEB Last administered on at 22:31; Start 08/09/17 at 22:00; Stop 08/10/17 at 00:03; Status DC Docusate Sodium (Colace) 100 mg BID PO Last administered on 08/11/17at 21:33; Start 08/10/17 at 09:00 Levalbuterol HCl (Xopenex Neb) 1.25 mg Q2HR NEB PRN NEB SEE LABEL COMMENTS; Start 08/10/17 at 00:15; Stop 08/10/17 at 00:15; Status DC Levalbuterol HCl (Xopenex Neb) 1.25 mg Q2HR NEB PRN NEB SEE LABEL COMMENTS Last administered on 08/11/17at 20:10; Start 08/10/17 at 00:15 Digoxin (Lanoxin) 0.25 mg NOW ONCE PO ; Start 08/10/17 at 05:15; Stop 08/10/17 at 05:16; Status Cancel Sodium Chloride 500 ml @ 500 mls/hr Q1H ONCE IV Last administered on at 05:15; Start 08/10/17 at 05:15; Stop 08/10/17 at 06:14; Status DC Digoxin (Lanoxin Inj) 0.25 mg NOW ONCE IV PUSH Last administered on 08/10/17at 05:35; Start 08/10/17 at 05:15; Stop 08/10/17 at 05:16; Status DC Sodium Bicarbonate (Sodium Bicarbonate 8.4% Inj) 50 meq ONCE ONCE IV PUSH Last administered on 08/10/17at 05:34; Start 08/10/17 at 05:30; Stop 08/10/17 at 05:31; Status DC Apixaban (Eliquis) 5 mg BID PO ; Start 08/12/17 at 09:30 A/P Assessment and Plan Atrial fibrillation/flutter with RVR -s/pCardizem drip for rate control -on Cardizem 60 mg p.o. every 6 hours and amiodarone 400mg po DAILY -Continue telemetry -Dr. Doty, cards, evaluated the patient and TO HAVE CARDIOVERSION/ABLATION today? -Eliquis for anticoagulation -Back on esmolol gtt due HR not well controlled Remains on metoprolol every 4 hours Hyponatremia -Chronic. Na 135 yesterday, no new lab today -Gentle IV fluid hydration -Monitor trend Chronic back pain -Continue home meds and morphine as needed, but reduce dose CHF - Chronic, stable. 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 Pt also on esmolol gtt. DW RN AND PT Discharge Planning PENDING CARDIAC IMPROVEMENT Jay Jacobo DO August 12, 2017 09:39
[2017-08-12] MEDS ORDERED: POTASSIUM CHLOR 20 MEQ PREMIX 100 ML IV PRN (09:45)
[2017-08-12] MEDS ORDERED: POTASSIUM CHLOR 40 MEQ PREMIX 100 ML IV PRN ×2 (09:45)
[2017-08-12] MEDS ORDERED: POTASSIUM PHOSPHATE MONOBASIC 500 MG TAB PO/TUBE PRN (09:45)
[2017-08-12] MEDS ORDERED: MAGNESIUM SULFATE INJ 4 GM in SODIUM CHLORIDE 0.9% INJ 92 ML IV PRN (09:45)
[2017-08-12] MEDS ORDERED: POTASSIUM PHOSPHATE MONOBASIC 500 MG TAB PO PRN (09:45)
[2017-08-12] MEDS ORDERED: SODIUM PHOSPHATE INJ 30 MMOL in SODIUM CHLOR 0.9% 250 ML INJ 240 ML IV PRN (09:45)
[2017-08-12] MEDS ORDERED: MAGNESIUM OXIDE 400 MG TAB PO PRN (09:45)
[2017-08-12] MEDS ORDERED: MAGNESIUM SULFATE INJ 2 GM in SODIUM CHLORIDE 0.9% INJ 96 ML IV PRN (09:45)
[2017-08-12] MEDS ORDERED: POTASSIUM CHLORIDE 25 MEQ EFFERVESCENT TAB PO PRN (09:45)
[2017-08-12] MEDS: APIXABAN 5 MG TABLET PO SCH ×2 (10:40→20:55)
--- NOTE | 2017-08-12 11:03 | HHI.PR ---
Review/Management Diagnosis/Plan: (1) Encephalopathy, metabolic ICD Codes: G93.41 - Metabolic encephalopathy Status: Acute Plan: Likely multifactorial related to medications, hypertension, pain medications Less likely to be an embolic infarct is on anticoagulation imaging studies have been negative at this point Amiodarone in some patients can cause a mild encephalopathy She is doing a lot better Recommendations Neuro stable doing well Plans for cardiac ablation today Avoid hypotension Follow exam (2) Atrial fibrillation with RVR ICD Codes: I48.91 - Unspecified atrial fibrillation Status: Chronic Plan: Per medical, cardiology On anticoagulation (3) CHF (congestive heart failure) ICD Codes: I50.9 - Heart failure, unspecified Status: Chronic Plan: Per medical, cardiology (4) CKD (chronic kidney disease) ICD Codes: N18.9 - Chronic kidney disease, unspecified Status: Acute Plan: Per medical Subjective Subjective Comments No acute events reported No headache No chest pain No dyspnea Active Medications Current Medications Medications (Trade) Dose Ordered Sig/Sammy Route Start Time Stop Time Status Last Admin (NS Flush) 2 ml UNSCH PRN IV FLUSH 08/06/17 17:30 08/09/17 04:58 (NS Flush) 2 ml BID IV FLUSH 08/06/17 21:00 08/11/17 21:33 (Tylenol) 650 mg Q6H PRN PO 08/06/17 17:30 (Albuterol Neb) 2.5 mg Q2HR NEB PRN INH 08/06/17 17:30 Future Hold ([facility] Nursing Information) 1 Q361D XX 08/06/17 17:30 08/06/17 23:00 (Milk Of Magnesia Liq) 30 ml Q12H PRN PO 08/06/17 17:30 (Senokot) 17.2 mg Q12H PRN PO 08/06/17 17:30 (Dulcolax Supp) 10 mg DAILY PRN RECTAL 08/06/17 17:30 (Lactulose Liq) 30 ml DAILY PRN PO 08/06/17 17:30 (Welchol) 625 mg TID PO 08/06/17 18:00 08/11/17 18:41 (Lasix) 40 mg DAILY PO 08/07/17 09:00 08/12/17 08:25 (Synthroid) 88 mcg DAILY@0600 PO 08/07/17 06:00 08/12/17 05:40 (Prinivil) 10 mg DAILY PO 08/07/17 09:00 Future Hold 08/09/17 10:16 (Ultram) 50 mg Q6H PRN PO 08/06/17 17:30 08/08/17 07:54 (Pepcid) 10 mg BID PO 08/06/17 21:00 08/12/17 08:25 (Zofran Odt) 4 mg Q6H PRN SL 08/06/17 18:00 08/09/17 09:55 Diltiazem HCl 125 mg/Sodium Chloride 125 ml @ 5 mls/hr TITRATE PRN IV 08/06/17 18:45 08/06/17 19:21 (Morphine Inj) 2 mg Q3H PRN IM 08/06/17 23:30 Future Hold 08/07/17 07:07 Esmolol HCl/ Sodium Chloride 250 ml @ 17.55 mls/ hr TITRATE PRN IV 08/07/17 08:00 08/12/17 08:07 (Cardizem) 60 mg Q6H PO 08/07/17 14:00 08/12/17 08:25 ([place] 5-325 Mg) 1 tab Q6H PRN PO 08/07/17 12:30 08/08/17 02:44 (Lopressor Inj) 2.5 mg Q4H PRN IV PUSH 08/07/17 15:30 08/12/17 08:24 (Cordarone) 400 mg Q12HR PO 08/07/17 21:00 08/12/17 20:59 08/12/17 08:23 Sodium Chloride 1,000 ml @ 70 mls/hr [id number] IV 08/09/17 17:00 08/12/17 08:04 (Colace) 100 mg BID PO 08/10/17 09:00 08/12/17 10:40 (Xopenex Neb) 1.25 mg Q2HR NEB PRN NEB 08/10/17 00:15 08/11/17 20:10 (Eliquis) 5 mg BID PO 08/12/17 09:30 08/12/17 10:40 Potassium Chloride 100 ml @ 50 mls/hr Q2H PRN IV 08/12/17 09:45 Potassium Chloride 100 ml @ 50 mls/hr Q2H PRN IV 08/12/17 09:45 (K-Lyte Cl Eff) 50 meq UNSCH PRN PO 08/12/17 09:45 Potassium Chloride 100 ml @ 25 mls/hr UNSCH PRN IV 08/12/17 09:45 Potassium Chloride 100 ml @ 50 mls/hr Q2H PRN IV 08/12/17 09:45 Magnesium Sulfate 4 gm/Sodium Chloride 100 ml @ 50 mls/hr UNSCH PRN IV 08/12/17 09:45 (Mag-Ox) 800 mg UNSCH PRN PO 08/12/17 09:45 Magnesium Sulfate 2 gm/Sodium Chloride 100 ml @ 50 mls/hr UNSCH PRN IV 08/12/17 09:45 (K-Phos) 2,000 mg Q4H PRN PO 08/12/17 09:45 Sodium Phosphate 30 mmol/Sodium Chloride 250 ml @ 42 mls/hr UNSCH PRN IV 08/12/17 09:45 (K-Phos) 2,000 mg UNSCH PRN PO/TUBE 08/12/17 09:45 Potassium Phosphate 30 mmol/ Sodium Chloride 260 ml @ 42 mls/hr UNSCH PRN IV 08/12/17 09:45 Allergies Allergies Coded Allergies doxycycline (Unverified Allergy, Intermediate, UNKNOWN, 08/06/17) minocycline (Unverified Allergy, Intermediate, UNKNOWN, 08/06/17) tigecycline (Unverified Allergy, Intermediate, UNKNOWN, 08/06/17) pantoprazole (Unverified Allergy, Unknown, 08/06/17) codeine (Unverified Adverse Reaction, Intermediate, UPSET STOMACH, 08/06/17) prednisone (Unverified Adverse Reaction, Mild, Nausea/Vomiting, 08/06/17) amlodipine (Verified Adverse Reaction, Unknown, 08/06/17) Review of Systems All other ROS: ROS reviewed as documented in chart Exam I&O / VS 08/12/17 08/12/17 08/13/17 15:00 23:00 07:00 Intake Total 1050 ml Balance 1050 ml IV Total 1050 ml Vital Signs Date Time Temp Pulse Resp B/P (MAP) Pulse Ox O2 Delivery O2 Flow Rate FiO2 08/12/17 10:00 95 08/12/17 08:15 94 Nasal Cannula 3.00 08/12/17 08:07 137 116/82 08/12/17 08:00 98.0 142 24 116/82 (93) 100 08/12/17 08:00 142 08/12/17 05:20 127 117/74 08/12/17 03:39 146 90/58 08/12/17 03:00 102 83/58 08/12/17 02:00 130 08/12/17 01:42 98 130/62 08/12/17 00:00 115 19 112/60 (77) 91 08/12/17 00:00 108 08/11/17 22:00 90 08/11/17 21:30 92 117/56 08/11/17 20:10 89 Nasal Cannula 4.00 08/11/17 20:00 97.9 85 20 117/58 (77) 87 08/11/17 20:00 89 08/11/17 18:50 88 122/53 08/11/17 18:00 101 122/53 08/11/17 18:00 101 08/11/17 17:00 112 08/11/17 16:25 117 125/60 08/11/17 16:00 98.3 95 20 125/60 (81) 88 08/11/17 16:00 95 08/11/17 15:00 97 08/11/17 14:00 83 08/11/17 13:00 90 08/11/17 12:00 98.4 82 21 119/69 (86) 69 08/11/17 12:00 82 General: Alert and Oriented, No acute distress Eye: EOMI Respiratory: Non-labored respirations Musculoskeletal: ROM Neurologic: Alert, Oriented, Normal motor, No focal defects, CN II-XII intact, Normal DTR's Psychiatric: Cooperative Exam Comments Alert oriented to 2-3. 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 Gait not assessed secondary to fall risk Objective Micro and Labs Laboratory Tests Test 08/12/17 05:07 White Blood Count 11.7 Red Blood Count 3.58 Hemoglobin 10.8 Hematocrit 32.8 Mean Corpuscular Volume 91.5 Mean Corpuscular Hemoglobin 30.0 Mean Corpuscular Hemoglobin Concent 32.8 Red Cell Distribution Width 16.1 Platelet Count 368 Mean Platelet Volume 8.3 Neutrophils (%) (Auto) 82.5 Lymphocytes (%) (Auto) 7.6 Monocytes (%) (Auto) 9.5 Eosinophils (%) (Auto) 0.1 Basophils (%) (Auto) 0.3 Neutrophils # (Auto) 9.7 Lymphocytes # (Auto) 0.9 Monocytes # (Auto) 1.1 Eosinophils # (Auto) 0.0 Basophils # (Auto) 0.0 CBC Comment DIFF FINAL Differential Comment Prothrombin Time 12.4 Prothromb Time International Ratio 1.2 Blood Urea Nitrogen 21 Creatinine 0.80 Random Glucose 91 Total Protein 5.5 Albumin 2.6 Calcium Level 6.7 Phosphorus Level 1.4 Magnesium Level 2.3 Alkaline Phosphatase 87 Aspartate Amino Transf (AST/SGOT) 29 Alanine Aminotransferase (ALT/SGPT) 50 Total Bilirubin 0.3 Sodium Level 147 Potassium Level 3.2 Chloride Level 111 Carbon Dioxide Level 24.0 Anion Gap 12 Estimat Glomerular Filtration Rate 68 Protein Corrected Calcium 7.5 Date/Time Source Procedure Growth Status 08/06/17 20:25 Blood Peripheral Aerobic Blood Culture - Final NO GROWTH IN 5 DAYS Complete 08/06/17 20:25 Blood Peripheral Anaerobic Blood Culture - Final NO GROWTH IN 5 DAYS Complete 08/06/17 19:00 Nasal Aspirate Influenza Types A,B Antigen (BERNIE) - Final NEGATIVE FOR FLU A AND B ANTIGEN.... Complete 08/06/17 17:45 Urine Catheterized Urine Legionella Antigen - Final PRESUMPTIVE NEGATIVE FOR LEGIONELLA P... Complete 08/06/17 17:45 Urine Catheterized Urine Streptococcus pneumoniae Antigen (M - Final PRESUMPTIVE NEGATIVE FOR STREPTOCOCCU... Complete Roshan Calles MD August 12, 2017 11:03
[2017-08-12] MEDS: POTASSIUM PHOSPHATE INJ 30 MMOL in SODIUM CHLOR 0.9% 250 ML INJ 250 ML IV PRN (13:50)
--- NOTE | 2017-08-12 23:35 | HHI.PR ---
Subjective Remarks Tired Objective Vital Signs Date Time Temp Pulse Resp B/P (MAP) Pulse Ox O2 Delivery O2 Flow Rate FiO2 08/12/17 23:26 81 109/55 08/12/17 20:41 96 Nasal Cannula 3.00 08/12/17 19:48 98 91/52 08/12/17 18:00 108 08/12/17 16:03 118 08/12/17 16:00 99 Nasal Cannula 3.00 08/12/17 16:00 98.7 136 23 113/78 (90) 100 08/12/17 16:00 136 08/12/17 14:00 98 08/12/17 12:05 98 08/12/17 12:00 98.8 97 22 124/58 (80) 98 08/12/17 12:00 97 08/12/17 10:00 95 08/12/17 08:15 94 Nasal Cannula 3.00 08/12/17 08:07 137 116/82 08/12/17 08:00 98.0 142 24 116/82 (93) 100 08/12/17 08:00 142 08/12/17 08:00 100 Nasal Cannula 4.00 08/12/17 05:20 127 117/74 08/12/17 03:39 146 90/58 08/12/17 03:00 102 83/58 08/12/17 02:00 130 08/12/17 01:42 98 130/62 08/12/17 00:00 115 19 112/60 (77) 91 08/12/17 00:00 108 I/O 08/12/17 08/12/17 08/12/17 08/13/17 08/13/17 08/13/17 07:00 15:00 23:00 07:00 15:00 23:00 Intake Total 1010 ml 1400 ml 290 ml Output Total 2000 ml 5000 ml Balance -990 ml 1400 ml -4710 ml Intake Oral 0 ml 40 ml IV Total 1010 ml 1400 ml 250 ml Output Urine Total 2000 ml 5000 ml # Bowel Movements 0 0 Result Diagram: 08/12/17 0507 08/12/17 0507 Imaging Alert, fully oriented Lungs: ventilated Heart: S1, S2 irregular, no gallop Abdomen: soft, no mass Ext: no edema Last Impressions Chest X-Ray 08/10/17 0000 Signed Impressions: Service Date/Time: Thursday, August 10, 2017 05:26 - CONCLUSION: 1. Right central line in superior vena cava without pneumothorax. José Palacio MD Head CT 08/09/17 1639 Signed Impressions: Service Date/Time: Wednesday, August 09, 2017 17:52 - CONCLUSION: No acute disease. Abdelrahman Leary MD Head CTA 08/09/17 1624 Signed Impressions: Service Date/Time: Wednesday, August 09, 2017 17:52 - CONCLUSION: Mild fusiform dilatation of the cavernous portion of the internal carotid artery on the left. The more distal flow is normal. Abdelrahman Leary MD Neck CTA 08/09/17 0000 Signed Impressions: Service Date/Time: Wednesday, August 09, 2017 17:52 - CONCLUSION: No significant stenosis is seen. Abdelrahman Leary MD Abdomen/Pelvis CT 08/09/17 0000 Signed Impressions: Service Date/Time: Wednesday, August 09, 2017 22:20 - CONCLUSION: 1. Moderate right pleural effusion and mild left pleural effusion with accompanying atelectasis. 2. Mild amount of free fluid in the lower pelvic peritoneal cavity/cul-de-sac. 3. Edema seen throughout the subcutaneous tissues likely from anasarca. 4. Bladder diverticulum. 5. Contrast in the bladder and kidneys from prior administration. Abdelrahman Leary MD Abdomen X-Ray 08/09/17 0000 Signed Impressions: Service Date/Time: Wednesday, August 09, 2017 20:35 - CONCLUSION: 1. Mild nonspecific colonic dilatation. 2. Status post vertebroplasty of L2. 3. 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 4. 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 Abdelrahman Leary MD Current Medications Medications (Trade) Dose Ordered Sig/Sammy Route Start Time Stop Time Status Last Admin (NS Flush) 2 ml UNSCH PRN IV FLUSH 08/06/17 17:30 08/09/17 04:58 (NS Flush) 2 ml BID IV FLUSH 08/06/17 21:00 08/12/17 20:55 (Tylenol) 650 mg Q6H PRN PO 08/06/17 17:30 (Albuterol Neb) 2.5 mg Q2HR NEB PRN INH 08/06/17 17:30 Future Hold ([facility] [place] Nursing Information) 1 Q361D XX 08/06/17 17:30 08/06/17 23:00 (Milk Of Magnesia Liq) 30 ml Q12H PRN PO 08/06/17 17:30 (Senokot) 17.2 mg Q12H PRN PO 08/06/17 17:30 (Dulcolax Supp) 10 mg DAILY PRN RECTAL 08/06/17 17:30 (Lactulose Liq) 30 ml DAILY PRN PO 08/06/17 17:30 (Welchol) 625 mg TID PO 08/06/17 18:00 08/11/17 18:41 (Lasix) 40 mg DAILY PO 08/07/17 09:00 08/12/17 08:25 (Synthroid) 88 mcg DAILY@0600 PO 08/07/17 06:00 08/12/17 05:40 (Prinivil) 10 mg DAILY PO 08/07/17 09:00 Future Hold 08/09/17 10:16 (Ultram) 50 mg Q6H PRN PO 08/06/17 17:30 08/08/17 07:54 (Pepcid) 10 mg BID PO 08/06/17 21:00 08/12/17 20:56 (Zofran Odt) 4 mg Q6H PRN SL 08/06/17 18:00 08/09/17 09:55 Diltiazem HCl 125 mg/Sodium Chloride 125 ml @ 5 mls/hr TITRATE PRN IV 08/06/17 18:45 08/06/17 19:21 (Morphine Inj) 2 mg Q3H PRN IM 08/06/17 23:30 Future Hold 08/07/17 07:07 Esmolol HCl/ Sodium Chloride 250 ml @ 17.55 mls/ hr TITRATE PRN IV 08/07/17 08:00 08/12/17 23:26 (Cardizem) 60 mg Q6H PO 08/07/17 14:00 08/12/17 20:55 ([place] 5-325 Mg) 1 tab Q6H PRN PO 08/07/17 12:30 08/08/17 02:44 (Lopressor Inj) 2.5 mg Q4H PRN IV PUSH 08/07/17 15:30 08/12/17 16:54 Sodium Chloride 1,000 ml @ 70 mls/hr [id number] IV 08/09/17 17:00 08/12/17 23:08 (Colace) 100 mg BID PO 08/10/17 09:00 08/12/17 20:55 (Xopenex Neb) 1.25 mg Q2HR NEB PRN NEB 08/10/17 00:15 08/11/17 20:10 (Eliquis) 5 mg BID PO 08/12/17 09:30 08/12/17 20:55 Potassium Chloride 100 ml @ 50 mls/hr Q2H PRN IV 08/12/17 09:45 Potassium Chloride 100 ml @ 50 mls/hr Q2H PRN IV 08/12/17 09:45 (K-Lyte Cl Eff) 50 meq UNSCH PRN PO 08/12/17 09:45 Potassium Chloride 100 ml @ 25 mls/hr UNSCH PRN IV 08/12/17 09:45 Potassium Chloride 100 ml @ 50 mls/hr Q2H PRN IV 08/12/17 09:45 Magnesium Sulfate 4 gm/Sodium Chloride 100 ml @ 50 mls/hr UNSCH PRN IV 08/12/17 09:45 (Mag-Ox) 800 mg UNSCH PRN PO 08/12/17 09:45 Magnesium Sulfate 2 gm/Sodium Chloride 100 ml @ 50 mls/hr UNSCH PRN IV 08/12/17 09:45 (K-Phos) 2,000 mg Q4H PRN PO 08/12/17 09:45 Sodium Phosphate 30 mmol/Sodium Chloride 250 ml @ 42 mls/hr UNSCH PRN IV 08/12/17 09:45 (K-Phos) 2,000 mg UNSCH PRN PO/TUBE 08/12/17 09:45 Potassium Phosphate 30 mmol/ Sodium Chloride 260 ml @ 42 mls/hr UNSCH PRN IV 08/12/17 09:45 08/12/17 13:50 Assessment and Plan Problem List: (1) Atrial fibrillation with RVR ICD Codes: I48.91 - Unspecified atrial fibrillation Status: Chronic Plan: HR difficult to control In atrial fibrillation patient refuses ablation today case was cancelled after talking to her , she agrees to proceed Procedure will be scheduled for tomorrow Leo Pickard MD August 12, 2017 23:35
[2017-08-13] VITALS (19 sets, daily range): BP systolic 79–162; BP diastolic 50–69; PULSE 59–125; RESP 8–34; TEMP 97.9–98.9; O2SAT 92–100
[2017-08-13 00:49] LABS: PHOSPHORUS 1.8 MG/DL (2.5-4.9)
[2017-08-13] MEDS: POTASSIUM CHLOR 20 MEQ PREMIX 100 ML IV PRN ×3 (00:56→04:48)
[2017-08-13] MEDS: DILTIAZEM HCL 60 MG TAB PO SCH (00:59)
[2017-08-13] MEDS: ESMOLOL DRIP INJ PREMIX 250 ML IV PRN ×2 (02:50→07:04)
[2017-08-13] MEDS: ONDANSETRON ODT 4 MG TAB SL PRN (04:16)
[2017-08-13] MEDS: LEVOTHYROXINE SODIUM 88 MCG TAB PO SCH (04:16)
[2017-08-13] MEDS: POTASSIUM PHOSPHATE INJ 30 MMOL in SODIUM CHLOR 0.9% 250 ML INJ 250 ML IV PRN (04:50)
[2017-08-13 05:06] LABS: AUTOMATED NEUTROPHIL # 12.4 TH/MM3 (1.8-7.7); BASOPHIL % 0.2 % (0.0-2.0); HEMATOCRIT 35.6 % (35.0-46.0); HEMOGLOBIN 11.7 GM/DL (11.6-15.3); LYMPHOCYTE # 0.9 TH/MM3 (1.0-4.8); MEAN CELL VOLUME 89.8 FL (80.0-100.0); MEAN CORPUSCULAR HEMOGLOBIN 29.5 PG (27.0-34.0); MEAN CORPUSCULAR HGB CONC 32.9 % (32.0-36.0); MEAN PLATELET VOLUME 7.8 FL (7.0-11.0); MONO % 7.6 % (0.0-8.0); MONOCYTE # 1.1 TH/MM3 (0-0.9); NEUT % 86.2 % (16.0-70.0); PLATELET COUNT 388 TH/MM3 (150-450); RED BLOOD COUNT 3.97 MIL/MM3 (4.00-5.30); RED CELL DISTRIBUTION WIDTH 15.7 % (11.6-17.2); WHITE BLOOD COUNT 14.4 TH/MM3 (4.0-11.0)
[2017-08-13 05:36] LABS: ALBUMIN 2.6 GM/DL (3.4-5.0); BICARBONATE 26.6 MEQ/L (21.0-32.0); CALCIUM 6.3 MG/DL (8.5-10.1); CREATININE 0.76 MG/DL (0.50-1.00); MAGNESIUM 1.8 MG/DL (1.5-2.5)
[2017-08-13 05:39] LABS: TOTAL BILIRUBIN ADULT 0.3 MG/DL (0.2-1.0); TOTAL PROTEIN 5.4 GM/DL (6.4-8.2)
[2017-08-13 05:46] LABS: CALCIUM-PROTEIN CORRECTED 7.1 MG/DL (8.5-10.1)
[2017-08-13] MEDS ORDERED: HEPARIN-NS/PF INJ 2,000 ML ONE (06:39)
[2017-08-13] MEDS ORDERED: HEPARIN SODIUM - IV 10,000 UNITS/10 ML VIAL ONE (07:56)
[2017-08-13] MEDS ORDERED: ISOPROTERENOL INJ PREMIX 50 ML IV ONE (07:56)
[2017-08-13] MEDS ORDERED: HEPARIN-D5W 25,000 U/250 ML 250 ML ONE (07:57)
[2017-08-13] MEDS ORDERED: FUROSEMIDE 40 MG/4 ML VIAL ONE (08:13)
[2017-08-13] MEDS: APIXABAN 5 MG TABLET PO SCH ×2 (09:00→21:46)
[2017-08-13] MEDS: FAMOTIDINE 20 MG TAB PO SCH ×2 (09:00→21:46)
[2017-08-13] MEDS: COLESEVELAM HCL 625 MG TAB PO SCH ×3 (09:00→18:00)
[2017-08-13] MEDS: DOCUSATE SODIUM 100 MG CAP PO SCH ×2 (09:00→21:47)
[2017-08-13] MEDS ORDERED: PROTAMINE SULFATE 50 MG/5 ML VIAL ONE (09:39)
--- NOTE | 2017-08-13 09:43 | PD.CONS ---
Consult Service Palliative Care Consult Requested By Dr. Jacobo Primary Care Physician Malachi Hua MD Reason for Consultation a. To assist with evaluation and management of symptoms including:pain, anxiety b. To assist medical decision maker(s) with: better understanding of current medical conditions; weighing benefits/burdens of medical treatment options; making medical treatment decisions. HPI History of Present Illness Patient is a 86-year-old female the presented to [facility] emergency department on 08/06/2017 for complaints of palpitation. Patient has had a history of A. fib and has had 2 ablations done in the past. Patient had cardioversion done last summer. Patient currently is on Eliquis. In the ER: * Temperature is 97.4, pulse is 159, respirations 20, blood pressure is 133/67, pulse ox is 99% * WBCs 9.0, hemoglobin is 11.3, hematocrit 34.7, platelets 309, * Sodium was 141, potassium is 4.6, chloride 96, BUN 31, creatinine is 1.40 * Troponin I 0.03, and 0.04 and 0.02 * BNP is 1077 * TSH is 11.3 * EKG shows narrow complex tachycardia rate of 150. Patient was given IV Lopressor and small amount of fluid. Case was discussed with laborer operator and recommend going to the [facility] for evaluation by Dr. Pickard who has 2 ablations in the past. Patient was transferred to [facility] and placed in the ICU. 08/07/2017- Dr. Pickard came an evaluated patient. Last ablation was January 2017. Recommendation was to try amiodarone and if heart rate cannot be controlled, will proceed to ablation. Patient's care was transferred to hospitalist services. 08/08/2017. Patient's HR at 120s despite multiple medication, and EPS was ordered. 08/09 to . It is noted patient has had episodes of confusion during hospital stay. Patient's HR controlled with Esmolol. Cardiology discussed with patient about consideration of ischemic evaluation, but patient had said to leave it alone. There had been episode of hypotension and give NS bolus. Patient has had right arm tingling. 08/11/2017- Pt was seen by neurology for confusion, which feels patient has encephalopathy and likely multifactorial related to medications, hypertension, pain meds. Pt less likely to be embolic infact. EEG show mild encephalopathy.Neurology did note patient confusion seem to be improving. 08/12- neurology indicate patient does remember seeing neurologist and confusion has improved. Dr. Neeraj whitmore came by and met with and patient. Patient is schedule to undergo procedure the next morning. 08/13.Palliative care was consulted to review goals of care, but patient is currently undergoing procedure today. Past Family Social History Coded Allergies: doxycycline (Unverified Allergy, Intermediate, UNKNOWN, 08/06/17) minocycline (Unverified Allergy, Intermediate, UNKNOWN, 08/06/17) tigecycline (Unverified Allergy, Intermediate, UNKNOWN, 08/06/17) pantoprazole (Unverified Allergy, Unknown, 08/06/17) codeine (Unverified Adverse Reaction, Intermediate, UPSET STOMACH, 08/06/17 ) prednisone (Unverified Adverse Reaction, Mild, Nausea/Vomiting, 08/06/17) amlodipine (Verified Adverse Reaction, Unknown, 08/06/17) Current Medications Medications (Trade) Dose Ordered Sig/Sammy Route Start Time Stop Time Status Last Admin (NS Flush) 2 ml UNSCH PRN IV FLUSH 08/06/17 17:30 08/09/17 04:58 (NS Flush) 2 ml BID IV FLUSH 08/06/17 21:00 08/12/17 20:55 (Tylenol) 650 mg Q6H PRN PO 08/06/17 17:30 (Albuterol Neb) 2.5 mg Q2HR NEB PRN INH 08/06/17 17:30 Future Hold ([facility] Nursing Information) 1 Q361D XX 08/06/17 17:30 08/06/17 23:00 (Milk Of Magnesia Liq) 30 ml Q12H PRN PO 08/06/17 17:30 (Senokot) 17.2 mg Q12H PRN PO 08/06/17 17:30 (Dulcolax Supp) 10 mg DAILY PRN RECTAL 08/06/17 17:30 (Lactulose Liq) 30 ml DAILY PRN PO 08/06/17 17:30 (Welchol) 625 mg TID PO 08/06/17 18:00 08/11/17 18:41 (Lasix) 40 mg DAILY PO 08/07/17 09:00 08/12/17 08:25 (Synthroid) 88 mcg DAILY@0600 PO 08/07/17 06:00 08/13/17 04:16 (Prinivil) 10 mg DAILY PO 08/07/17 09:00 Future Hold 08/09/17 10:16 (Ultram) 50 mg Q6H PRN PO 08/06/17 17:30 08/08/17 07:54 (Pepcid) 10 mg BID PO 08/06/17 21:00 08/12/17 20:56 (Zofran Odt) 4 mg Q6H PRN SL 08/06/17 18:00 08/13/17 04:16 Diltiazem HCl 125 mg/Sodium Chloride 125 ml @ 5 mls/hr TITRATE PRN IV 08/06/17 18:45 08/06/17 19:21 (Morphine Inj) 2 mg Q3H PRN IM 08/06/17 23:30 Future Hold 08/07/17 07:07 Esmolol HCl/ Sodium Chloride 250 ml @ 17.55 mls/ hr TITRATE PRN IV 08/07/17 08:00 08/13/17 07:04 (Cardizem) 60 mg Q6H PO 08/07/17 14:00 08/13/17 00:59 ([place] 5-325 Mg) 1 tab Q6H PRN PO 08/07/17 12:30 08/08/17 02:44 (Lopressor Inj) 2.5 mg Q4H PRN IV PUSH 08/07/17 15:30 08/12/17 16:54 Sodium Chloride 1,000 ml @ 70 mls/hr [id number] IV 08/09/17 17:00 08/12/17 23:08 (Colace) 100 mg BID PO 08/10/17 09:00 08/12/17 20:55 (Xopenex Neb) 1.25 mg Q2HR NEB PRN NEB 08/10/17 00:15 08/11/17 20:10 (Eliquis) 5 mg BID PO 08/12/17 09:30 08/12/17 20:55 Potassium Chloride 100 ml @ 50 mls/hr Q2H PRN IV 08/12/17 09:45 Potassium Chloride 100 ml @ 50 mls/hr Q2H PRN IV 08/12/17 09:45 08/13/17 04:48 (K-Lyte Cl Eff) 50 meq UNSCH PRN PO 08/12/17 09:45 Potassium Chloride 100 ml @ 25 mls/hr UNSCH PRN IV 08/12/17 09:45 Potassium Chloride 100 ml @ 50 mls/hr Q2H PRN IV 08/12/17 09:45 Magnesium Sulfate 4 gm/Sodium Chloride 100 ml @ 50 mls/hr UNSCH PRN IV 08/12/17 09:45 (Mag-Ox) 800 mg UNSCH PRN PO 08/12/17 09:45 Magnesium Sulfate 2 gm/Sodium Chloride 100 ml @ 50 mls/hr UNSCH PRN IV 08/12/17 09:45 (K-Phos) 2,000 mg Q4H PRN PO 08/12/17 09:45 Sodium Phosphate 30 mmol/Sodium Chloride 250 ml @ 42 mls/hr UNSCH PRN IV 08/12/17 09:45 (K-Phos) 2,000 mg UNSCH PRN PO/TUBE 08/12/17 09:45 Potassium Phosphate 30 mmol/ Sodium Chloride 260 ml @ 42 mls/hr UNSCH PRN IV 08/12/17 09:45 08/13/17 04:50 Substance Use Tobacco: Alcohol: Prescription med abuse: Illicits: Physical Exam Vital Signs Date Time Temp Pulse Resp B/P (MAP) Pulse Ox O2 Delivery O2 Flow Rate FiO2 08/13/17 07:04 106 98/52 08/13/17 07:00 95 Nasal Cannula 3.00 08/13/17 07:00 95 Nasal Cannula 4.00 08/13/17 07:00 106 34 79/50 (60) 95 08/13/17 06:00 64 08/13/17 04:00 98.7 88 28 102/63 (76) 97 08/13/17 04:00 88 08/13/17 02:50 85 100/58 08/13/17 02:00 125 08/13/17 00:26 95 Nasal Cannula 4.00 08/13/17 00:00 77 08/13/17 00:00 98.6 77 23 114/57 (76) 93 08/12/17 23:26 81 109/55 08/12/17 22:00 77 08/12/17 20:41 96 Nasal Cannula 3.00 08/12/17 20:00 98.6 113 26 106/58 (74) 96 5/21/18 20:00 113 08/12/17 19:48 98 91/52 08/12/17 19:00 97 Nasal Cannula 3.00 08/12/17 18:00 108 08/12/17 16:03 118 08/12/17 16:00 99 Nasal Cannula 3.00 08/12/17 16:00 98.7 136 23 113/78 (90) 100 08/12/17 16:00 136 08/12/17 14:00 98 08/12/17 12:05 98 08/12/17 12:00 98.8 97 22 124/58 (80) 98 08/12/17 12:00 97 08/12/17 10:00 95 Exam CONSTITUTIONAL/GENERAL: This is an adequately nourished patient, in no apparent distress. TUBES/LINES/DRAINS: SKIN: No jaundice, rashes, or lesions. Ecchymoses on upper extremities. No wounds seen anteriorly. Skin temperature appropriate. Not diaphoretic. HEAD: Atraumatic. Normocephalic. EYES: Pupils equal and round and reactive. Extraocular motions intact. No scleral icterus. No injection or drainage. Fundi not examined. ENT: Hearing grossly normal. Nose without bleeding or purulent drainage. Throat without visible erythema, exudates, masses, or lesions. NECK: Trachea midline. Supple, nontender. No palpable thyroid enlargement or nodularity. CARDIOVASCULAR: Regular rate and rhythm without murmurs, gallops, or rubs. No JVD. Peripheral pulses symmetric. RESPIRATORY/CHEST: Symmetric, unlabored respirations. Clear to auscultation. Breath sounds equal bilaterally. No wheezes, rales, or rhonchi. GASTROINTESTINAL: Abdomen soft, non-tender, nondistended. No hepato-splenomegaly , or palpable masses. No guarding. Bowel sounds present. GENITOURINARY: Without palpable bladder distension. Strong catheter in place. MUSCULOSKELETAL: Extremities without clubbing, cyanosis, or edema. No joint tenderness or effusion noted. No calf tenderness. No mottling or clubbing. LYMPHATICS: No palpable cervical or supraclavicular adenopathy. NEUROLOGICAL: Awake and alert. Motor and sensory grossly within normal limits. Follows commands. Cognitively sharp. Moves all extremities. PSYCHIATRIC: No obvious anxiety/depression. no apparent hallucinations or other psychotic thought process. Diagnostic Tests Laboratory Laboratory Tests Test 08/10/17 13:54 08/10/17 18:00 08/11/17 04:00 08/12/17 05:07 Ammonia 21 MCMOL/L (11-32) Urine Color Red (YELLW/STRAW) Urine Turbidity Cloudy (CLEAR) Urine pH 6.0 (5.0-8.5) Urine Specific [place] 1.030 (1.002-1.035) Urine Protein 300 OR GREATER mg/dL Urine Glucose (UA) NEG mg/dL (NEG) Urine Ketones 40 mg/dL (NEG) Urine Occult Blood MOD (NEG) Urine Nitrite NEG (NEG) Urine Bilirubin NEG (NEG) Urine Urobilinogen 0.2 MG/DL (LESS THAN Urine Leukocyte Esterase TRACE (NEG) Urine RBC /hpf (0-3) Urine WBC 50-99 /hpf (0-5) Urine WBC Clumps OCC (NONE) Urine Squamous Epithelial Cells 0-5 /hpf (0-5) Urine Bacteria OCC /hpf (NONE) White Blood Count 12.4 TH/MM3 (4.0-11.0) 11.7 TH/MM3 (4.0-11.0) Red Blood Count 3.71 MIL/MM3 (4.00-5.30) 3.58 MIL/MM3 (4.00-5.30) Hemoglobin 11.3 GM/DL (11.6-15.3) 10.8 GM/DL (11.6-15.3) Hematocrit 34.1 % (35.0-46.0) 32.8 % (35.0-46.0) Mean Corpuscular Volume 91.8 FL (80.0-100.0) 91.5 FL (80.0-100.0) Mean Corpuscular Hemoglobin 30.5 PG (27.0-34.0) 30.0 PG (27.0-34.0) Mean Corpuscular Hemoglobin Concent 33.2 % (32.0-36.0) 32.8 % (32.0-36.0) Red Cell Distribution Width 16.2 % (11.6-17.2) 16.1 % (11.6-17.2) Platelet Count 362 TH/MM3 (150-450) 368 TH/MM3 (150-450) Mean Platelet Volume 8.6 FL (7.0-11.0) 8.3 FL (7.0-11.0) Neutrophils (%) (Auto) 85.1 % (16.0-70.0) 82.5 % (16.0-70.0) Lymphocytes (%) (Auto) 5.3 % (9.0-44.0) 7.6 % (9.0-44.0) Monocytes (%) (Auto) 9.3 % (0.0-8.0) 9.5 % (0.0-8.0) Eosinophils (%) (Auto) 0.0 % (0.0-4.0) 0.1 % (0.0-4.0) Basophils (%) (Auto) 0.3 % (0.0-2.0) 0.3 % (0.0-2.0) Neutrophils # (Auto) 10.5 TH/MM3 (1.8-7.7) 9.7 TH/MM3 (1.8-7.7) Lymphocytes # (Auto) 0.7 TH/MM3 (1.0-4.8) 0.9 TH/MM3 (1.0-4.8) Monocytes # (Auto) 1.2 TH/MM3 (0-0.9) 1.1 TH/MM3 (0-0.9) Eosinophils # (Auto) 0.0 TH/MM3 (0-0.4) 0.0 TH/MM3 (0-0.4) Basophils # (Auto) 0.0 TH/MM3 (0-0.2) 0.0 TH/MM3 (0-0.2) CBC Comment DIFF FINAL DIFF FINAL Differential Comment Blood Urea Nitrogen 35 MG/DL (7-18) 21 MG/DL (7-18) Creatinine 1.14 MG/DL (0.50-1.00) 0.80 MG/DL (0.50-1.00) Random Glucose 102 MG/DL (74-106) 91 MG/DL (74-106) Total Protein 5.8 GM/DL (6.4-8.2) 5.5 GM/DL (6.4-8.2) Albumin 2.9 GM/DL (3.4-5.0) 2.6 GM/DL (3.4-5.0) Calcium Level 7.0 MG/DL (8.5-10.1) 6.7 MG/DL (8.5-10.1) Phosphorus Level 2.0 MG/DL (2.5-4.9) 1.4 MG/DL (2.5-4.9) Magnesium Level 2.3 MG/DL (1.5-2.5) 2.3 MG/DL (1.5-2.5) Alkaline Phosphatase 96 U/L (45-117) 87 U/L (45-117) Aspartate Amino Transf (AST/SGOT) 38 U/L (15-37) 29 U/L (15-37) Alanine Aminotransferase (ALT/SGPT) 60 U/L (10-53) 50 U/L (10-53) Total Bilirubin 0.3 MG/DL (0.2-1.0) 0.3 MG/DL (0.2-1.0) Sodium Level 146 MEQ/L (136-145) 147 MEQ/L (136-145) Potassium Level 4.1 MEQ/L (3.5-5.1) 3.2 MEQ/L (3.5-5.1) Chloride Level 113 MEQ/L (98-107) 111 MEQ/L (98-107) Carbon Dioxide Level 18.5 MEQ/L (21.0-32.0) 24.0 MEQ/L (21.0-32.0) Anion Gap 15 MEQ/L (5-15) 12 MEQ/L (5-15) Estimat Glomerular Filtration Rate 45 ML/MIN (>89) 68 ML/MIN (>89) Protein Corrected Calcium 7.7 MG/DL (8.5-10.1) 7.5 MG/DL (8.5-10.1) Prothrombin Time 12.4 SEC (9.8-11.6) Prothromb Time International Ratio 1.2 RATIO Test 08/12/17 11:35 08/13/17 00:00 08/13/17 05:00 Phosphorus Level 1.2 MG/DL (2.5-4.9) 1.8 MG/DL (2.5-4.9) 2.0 MG/DL (2.5-4.9) Potassium Level 2.6 MEQ/L (3.5-5.1) 3.3 MEQ/L (3.5-5.1) White Blood Count 14.4 TH/MM3 (4.0-11.0) Red Blood Count 3.97 MIL/MM3 (4.00-5.30) Hemoglobin 11.7 GM/DL (11.6-15.3) Hematocrit 35.6 % (35.0-46.0) Mean Corpuscular Volume 89.8 FL (80.0-100.0) Mean Corpuscular Hemoglobin 29.5 PG (27.0-34.0) Mean Corpuscular Hemoglobin Concent 32.9 % (32.0-36.0) Red Cell Distribution Width 15.7 % (11.6-17.2) Platelet Count 388 TH/MM3 (150-450) Mean Platelet Volume 7.8 FL (7.0-11.0) Neutrophils (%) (Auto) 86.2 % (16.0-70.0) Lymphocytes (%) (Auto) 6.0 % (9.0-44.0) Monocytes (%) (Auto) 7.6 % (0.0-8.0) Eosinophils (%) (Auto) 0.0 % (0.0-4.0) Basophils (%) (Auto) 0.2 % (0.0-2.0) Neutrophils # (Auto) 12.4 TH/MM3 (1.8-7.7) Lymphocytes # (Auto) 0.9 TH/MM3 (1.0-4.8) Monocytes # (Auto) 1.1 TH/MM3 (0-0.9) Eosinophils # (Auto) 0.0 TH/MM3 (0-0.4) Basophils # (Auto) 0.0 TH/MM3 (0-0.2) CBC Comment DIFF FINAL Differential Comment Blood Urea Nitrogen 13 MG/DL (7-18) Creatinine 0.76 MG/DL (0.50-1.00) Random Glucose 104 MG/DL (74-106) Total Protein 5.4 GM/DL (6.4-8.2) Albumin 2.6 GM/DL (3.4-5.0) Calcium Level 6.3 MG/DL (8.5-10.1) Magnesium Level 1.8 MG/DL (1.5-2.5) Alkaline Phosphatase 83 U/L (45-117) Aspartate Amino Transf (AST/SGOT) 26 U/L (15-37) Alanine Aminotransferase (ALT/SGPT) 43 U/L (10-53) Total Bilirubin 0.3 MG/DL (0.2-1.0) Sodium Level 143 MEQ/L (136-145) Chloride Level 102 MEQ/L (98-107) Carbon Dioxide Level 26.6 MEQ/L (21.0-32.0) Anion Gap 14 MEQ/L (5-15) Estimat Glomerular Filtration Rate 72 ML/MIN (>89) Protein Corrected Calcium 7.1 MG/DL (8.5-10.1) Result Diagram: 08/13/17 0500 08/13/17 0500 Patient/Family Conference Issues Discussed: * Palliative care role, purpose, approach * Additional medical, psychosocial, and spiritual history * Patients general health, functional status, and cognitive changes in the months leading up to the current hospitalization * Patient/family understanding of the current medical problems * Patient/family understanding of prognosis * Patients goals of care as best understood from advance directives and/or conversations and/or values * Current medical treatment options and benefits/burdens of those options * Likely scenarios comparing ongoing aggressive care with a transition to comfort measures only * Questions answered to the best of my ability * Palliative care contact information provided Assessment and Plan Pertinent Non-Medical Issues Psychosocial: Spiritual: Legal: Ethical issues impacting care: Thank you for the opportunity to participate in the care of Ms. Romo. Jad Alvarenga MD August 13, 2017 09:43
[2017-08-13] MEDS ORDERED: SODIUM CHLOR 0.9% 250 ML INJ 250 ML IV PRN (09:45)
[2017-08-13] MEDS ORDERED: ONDANSETRON ODT 4 MG TAB PO PRN (09:45)
[2017-08-13] MEDS ORDERED: BACITRACIN OINT 0.9 GM PKT TOP ONE (09:45)
[2017-08-13] MEDS ORDERED: METOCLOPRAMIDE HCL 10 MG/2 ML VIAL IV PUSH PRN (09:45)
[2017-08-13] MEDS ORDERED: ATROPINE SULFATE 1 MG/ML VIAL IV PUSH PRN (09:45)
[2017-08-13] MEDS ORDERED: LORazepam 2 MG/ML VIAL IV PUSH PRN (09:45)
[2017-08-13] MEDS ORDERED: LIDOCAINE HCL 1% 50 ML VIAL INFIL PRN (09:45)
[2017-08-13] MEDS ORDERED: DO NOT ADM ANY ANTICOAGULANT DRUGS PRN (10:37)
[2017-08-13] MEDS ORDERED: PROPOFOL 1000 MG/100 ML INJ 100 ML ONE (10:44)
--- NOTE | 2017-08-13 11:12 | RADRPT ---
EXAM DATE: 08/13/2017 11:06 AM EDT AGE/SEX: 86 years / Female INDICATIONS: Post intubation. CLINICAL DATA: This is the patient's subsequent encounter. Patient reports that signs and symptoms h ave been present for 4 - 6 days and indicates a pain score of Nonresponsive. MEDICAL/SURGICAL HISTORY: Hypertension. Gastroesophageal reflux disease. A-Fib. Coronary arter y disease. Kyphoplasty. COMPARISON: [facility] – [place], CHEST SINGLE AP, 02/17/2017. . FINDINGS: An endotracheal tube has been inserted. Its tip is at the level of the clavicular heads. Mild diffuse opacity is identified throughout both lungs. There is fairly dense consolidation in the left base. Heart is mildly enlarged. Osseous structures are intact. CONCLUSION: 1. Abnormal placement of endotracheal tube with its tip at the thoracic inlet. 2. Diffuse opacity throughout the lungs suggesting bilateral fluid accumulation. 3. Left lower lobe consolidating airspace disease. Electronically signed by: Sarthak Chapman MD 08/13/2017 11:10 AM EDT
[2017-08-13] MEDS ORDERED: VASOPRESSIN 40 U/D5W 100 ML Hypotension, do NOT titrate (enter ordered rate) IV PRN ×2 (11:15)
[2017-08-13] MEDS ORDERED: PHENYLEPHRINE 40 MG in D5W 500 ML IV PRN (11:15)
[2017-08-13] MEDS ORDERED: TERBUTALINE INJ 1 MG/ML AMP SQ PRN (11:15)
[2017-08-13] MEDS ORDERED: PHENYLEPH/NS 1000 MCG/10 ML SYR IV ONE (12:00)
[2017-08-13] MEDS ORDERED: NEOSTIGMINE 5 MG/5 ML SYRINGE IV PUSH ONE (12:00)
[2017-08-13] MEDS ORDERED: ROCURONIUM INJ 50 MG/5 ML SYRINGE IV PUSH ONE (12:00)
[2017-08-13] MEDS ORDERED: ESMOLOL HCL 100 MG/10 ML VIAL IV ONE (12:00)
[2017-08-13] MEDS ORDERED: LIDOCAINE HCL 1% PF 5 ML SYRINGE OTHER ONE (12:00)
[2017-08-13] MEDS ORDERED: SODIUM CHLORID 0.9% 500 ML INJ 500 ML IV ONE (12:00)
[2017-08-13] MEDS ORDERED: PROPOFOL 200 MG/20 ML AMP IV ONE (12:00)
[2017-08-13] MEDS ORDERED: SUCCINYLCHOLINE CHLORIDE 100 MG/5 ML SYRINGE IV PUSH ONE (12:00)
[2017-08-13] MEDS ORDERED: METOPROLOL TARTRATE 5 MG/5 ML VIAL IV ONE (12:00)
[2017-08-13] MEDS ORDERED: GLYCOPYRROLATE 1 MG/5 ML SYRINGE IV PUSH ONE (12:00)
[2017-08-13] MEDS ORDERED: POTASSIUM CHLORIDE 25 MEQ EFFERVESCENT TAB PO ONE (12:30)
[2017-08-13] MEDS ORDERED: CALCIUM CHLORIDE INJ 2 GM in DEXTROSE 5% IN WATER 100ML INJ 100 ML IV ONE ×2 (12:30)
[2017-08-13] MEDS: DILTIAZEM-CD 180 MG CAP ER PO SCH (13:00)
[2017-08-13] MEDS: FUROSEMIDE 40 MG/4 ML VIAL IV PUSH SCH ×2 (13:00→17:48)
[2017-08-13] MEDS ORDERED: CALCIUM GLUCONATE INJ 2 GM in DEXTROSE 5% IN WATER 100ML INJ 100 ML IV ONE ×2 (13:00)
--- NOTE | 2017-08-13 13:04 | HHI.PR ---
Review/Management Diagnosis/Plan: (1) Encephalopathy, metabolic ICD Codes: G93.41 - Metabolic encephalopathy Status: Acute Plan: Likely multifactorial related to medications, hypertension, pain medications Less likely to be an embolic infarct is on anticoagulation imaging studies have been negative at this point Amiodarone in some patients can cause a mild encephalopathy Recommendations Neuro stable- continue to follow exam had cardiac ablation this morning Avoid hypotension (2) Atrial fibrillation with RVR ICD Codes: I48.91 - Unspecified atrial fibrillation Status: Chronic Plan: Per medical, cardiology On anticoagulation (3) CHF (congestive heart failure) ICD Codes: I50.9 - Heart failure, unspecified Status: Chronic Plan: Per medical, cardiology (4) CKD (chronic kidney disease) ICD Codes: N18.9 - Chronic kidney disease, unspecified Status: Acute Plan: Per medical (Gretel Baker) Diagnosis/Plan: (1) Encephalopathy, metabolic ICD Codes: G93.41 - Metabolic encephalopathy Status: Acute Plan: Likely multifactorial related to medications, hypertension, pain medications Less likely to be an embolic infarct is on anticoagulation imaging studies have been negative at this point Amiodarone in some patients can cause a mild encephalopathy Recommendations Neuro stable- continue to follow exam had cardiac ablation this morning Avoid hypotension Discussed with PA. Agree with above. (Roshan Calles MD) Subjective Subjective Comments Pt went for ablation this morning. Per nurse they tried to extubate her but she required to be immediately intubated. Pt is unable to give history. Active Medications Current Medications Medications (Trade) Dose Ordered Sig/Sammy Route Start Time Stop Time Status Last Admin (NS Flush) 2 ml UNSCH PRN IV FLUSH 08/06/17 17:30 08/09/17 04:58 (NS Flush) 2 ml BID IV FLUSH 08/06/17 21:00 08/12/17 20:55 (Tylenol) 650 mg Q6H PRN PO 08/06/17 17:30 (Albuterol Neb) 2.5 mg Q2HR NEB PRN INH 08/06/17 17:30 Future Hold ([facility] Nursing Information) 1 Q361D XX 08/06/17 17:30 08/06/17 23:00 (Milk Of Magnesia Liq) 30 ml Q12H PRN PO 08/06/17 17:30 (Senokot) 17.2 mg Q12H PRN PO 08/06/17 17:30 (Dulcolax Supp) 10 mg DAILY PRN RECTAL 08/06/17 17:30 (Lactulose Liq) 30 ml DAILY PRN PO 08/06/17 17:30 (Welchol) 625 mg TID PO 08/06/17 18:00 08/11/17 18:41 (Synthroid) 88 mcg DAILY@0600 PO 08/07/17 06:00 08/13/17 04:16 (Prinivil) 10 mg DAILY PO 08/07/17 09:00 Future Hold 08/09/17 10:16 (Ultram) 50 mg Q6H PRN PO 08/06/17 17:30 08/08/17 07:54 (Pepcid) 10 mg BID PO 08/06/17 21:00 08/12/17 20:56 (Zofran Odt) 4 mg Q6H PRN SL 08/06/17 18:00 08/13/17 04:16 (Morphine Inj) 2 mg Q3H PRN IM 08/06/17 23:30 Future Hold 08/07/17 07:07 Esmolol HCl/ Sodium Chloride 250 ml @ 17.55 mls/ hr TITRATE PRN IV 08/07/17 08:00 08/13/17 07:04 (Valentine 5-325 Mg) 1 tab Q6H PRN PO 08/07/17 12:30 08/08/17 02:44 (Lopressor Inj) 2.5 mg Q4H PRN IV PUSH 08/07/17 15:30 08/12/17 16:54 (Colace) 100 mg BID PO 08/10/17 09:00 08/12/17 20:55 (Xopenex Neb) 1.25 mg Q2HR NEB PRN NEB 08/10/17 00:15 08/11/17 20:10 (Eliquis) 5 mg BID PO 08/12/17 09:30 08/12/17 20:55 Potassium Chloride 100 ml @ 50 mls/hr Q2H PRN IV 08/12/17 09:45 Potassium Chloride 100 ml @ 50 mls/hr Q2H PRN IV 08/12/17 09:45 08/13/17 04:48 (K-Lyte Cl Eff) 50 meq UNSCH PRN PO 08/12/17 09:45 Potassium Chloride 100 ml @ 25 mls/hr UNSCH PRN IV 08/12/17 09:45 Potassium Chloride 100 ml @ 50 mls/hr Q2H PRN IV 08/12/17 09:45 Magnesium Sulfate 4 gm/Sodium Chloride 100 ml @ 50 mls/hr UNSCH PRN IV 08/12/17 09:45 (Mag-Ox) 800 mg UNSCH PRN PO 08/12/17 09:45 Magnesium Sulfate 2 gm/Sodium Chloride 100 ml @ 50 mls/hr UNSCH PRN IV 08/12/17 09:45 (K-Phos) 2,000 mg Q4H PRN PO 08/12/17 09:45 Sodium Phosphate 30 mmol/Sodium Chloride 250 ml @ 42 mls/hr UNSCH PRN IV 08/12/17 09:45 (K-Phos) 2,000 mg UNSCH PRN PO/TUBE 08/12/17 09:45 Potassium Phosphate 30 mmol/ Sodium Chloride 260 ml @ 42 mls/hr UNSCH PRN IV 08/12/17 09:45 08/13/17 04:50 (Ativan Inj) 0.5 mg UNSCH PRN IV PUSH 08/13/17 09:45 08/14/17 09:44 (Atropine Inj) 0.5 mg UNSCH PRN IV PUSH 08/13/17 09:45 Sodium Chloride 250 ml @ 500 mls/hr ONCE PRN IV 08/13/17 09:45 08/14/17 09:44 (Reglan Inj) 10 mg Q4H PRN IV PUSH 08/13/17 09:45 (Zofran Odt) 4 mg Q4H PRN PO 08/13/17 09:45 (Xylocaine 1% Inj (50 ml)) 10 ml UNSCH PRN INFIL 08/13/17 09:45 08/14/17 09:44 (Cardizem Cd) 180 mg DAILY PO 08/13/17 13:00 (Tambocor) 100 mg Q12HR PO 08/13/17 21:00 ([facility] Nursing Information) ALL NURSING DEPARTME... UNSCH PRN .XX 08/13/17 10:37 08/14/17 10:36 Phenylephrine HCl 40 mg/Dextrose 500 ml @ 30 mls/hr TITRATE PRN IV 08/13/17 11:15 (Brethine Inj) 1 mg UNSCH PRN SQ 08/13/17 11:15 Vasopressin 40 units/Dextrose 100 ml @ 1.5 mls/hr Q24H PRN IV 08/13/17 11:15 (Lasix Inj) 40 mg BID@09,18 IV PUSH 08/13/17 12:30 Calcium Gluconate 2 gm/Dextrose 120 ml @ 120 mls/hr NOW ONCE IV 08/13/17 13:00 08/13/17 13:59 Allergies Allergies Coded Allergies doxycycline (Unverified Allergy, Intermediate, UNKNOWN, 08/06/17) minocycline (Unverified Allergy, Intermediate, UNKNOWN, 08/06/17) tigecycline (Unverified Allergy, Intermediate, UNKNOWN, 08/06/17) pantoprazole (Unverified Allergy, Unknown, 08/06/17) codeine (Unverified Adverse Reaction, Intermediate, UPSET STOMACH, 08/06/17) prednisone (Unverified Adverse Reaction, Mild, Nausea/Vomiting, 08/06/17) amlodipine (Verified Adverse Reaction, Unknown, 08/06/17) (Gretel Baker) Review of Systems All other ROS: ROS reviewed as documented in chart (Gretel Baker) Exam I&O / VS 08/13/17 08/13/17 08/14/17 15:00 23:00 07:00 Intake Total 260 ml Balance 260 ml IV Total 260 ml Vital Signs Date Time Temp Pulse Resp B/P (MAP) Pulse Ox O2 Delivery O2 Flow Rate FiO2 08/13/17 12:49 100 40 08/13/17 12:49 40 08/13/17 11:47 60 08/13/17 11:05 57 16 98/56 (70) 100 Mechanical Ventilator 60 08/13/17 11:05 60 08/13/17 11:00 100 100 08/13/17 11:00 57 16 105/54 (71) 100 Mechanical Ventilator 60 08/13/17 10:45 56 16 97/54 (68) 100 Mechanical Ventilator 60 08/13/17 10:38 99 60 08/13/17 10:36 97.9 57 16 96/46 (63) 100 Mechanical Ventilator 60 08/13/17 10:36 60 08/13/17 07:04 106 98/52 08/13/17 07:00 95 Nasal Cannula 3.00 08/13/17 07:00 95 Nasal Cannula 4.00 08/13/17 07:00 106 34 79/50 (60) 95 08/13/17 06:00 64 08/13/17 04:00 98.7 88 28 102/63 (76) 97 08/13/17 04:00 88 08/13/17 02:50 85 100/58 08/13/17 02:00 125 08/13/17 00:26 95 Nasal Cannula 4.00 08/13/17 00:00 77 08/13/17 00:00 98.6 77 23 114/57 (76) 93 08/12/17 23:26 81 109/55 08/12/17 22:00 77 08/12/17 20:41 96 Nasal Cannula 3.00 08/12/17 20:00 98.6 113 26 106/58 (74) 96 08/12/17 20:00 113 08/12/17 19:48 98 91/52 08/12/17 19:00 97 Nasal Cannula 3.00 08/12/17 18:00 108 08/12/17 16:03 118 08/12/17 16:00 99 Nasal Cannula 3.00 08/12/17 16:00 98.7 136 23 113/78 (90) 100 08/12/17 16:00 136 08/12/17 14:00 98 General: Alert and Oriented, No acute distress Eye: EOMI Neurologic: Alert, No focal defects, CN II-XII intact Psychiatric: Cooperative Exam Comments Pt is alert, unable to assess orientation due to intubation, follows 1 step commands pupils 2-3mm sluggish, no facial droop, able to move fingers and toes, does not lift extremities, 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 and upper extremities in restraints, gait withheld (Gretel Baker) Objective Micro and Labs Laboratory Tests Test 08/13/17 00:00 08/13/17 05:00 08/13/17 11:51 Potassium Level 2.6 3.3 Phosphorus Level 1.8 2.0 White Blood Count 14.4 Red Blood Count 3.97 Hemoglobin 11.7 Hematocrit 35.6 Mean Corpuscular Volume 89.8 Mean Corpuscular Hemoglobin 29.5 Mean Corpuscular Hemoglobin Concent 32.9 Red Cell Distribution Width 15.7 Platelet Count 388 Mean Platelet Volume 7.8 Neutrophils (%) (Auto) 86.2 Lymphocytes (%) (Auto) 6.0 Monocytes (%) (Auto) 7.6 Eosinophils (%) (Auto) 0.0 Basophils (%) (Auto) 0.2 Neutrophils # (Auto) 12.4 Lymphocytes # (Auto) 0.9 Monocytes # (Auto) 1.1 Eosinophils # (Auto) 0.0 Basophils # (Auto) 0.0 CBC Comment DIFF FINAL Differential Comment Blood Urea Nitrogen 13 Creatinine 0.76 Random Glucose 104 Total Protein 5.4 Albumin 2.6 Calcium Level 6.3 Magnesium Level 1.8 Alkaline Phosphatase 83 Aspartate Amino Transf (AST/SGOT) 26 Alanine Aminotransferase (ALT/SGPT) 43 Total Bilirubin 0.3 Sodium Level 143 Chloride Level 102 Carbon Dioxide Level 26.6 Anion Gap 14 Estimat Glomerular Filtration Rate 72 Protein Corrected Calcium 7.1 Blood Gas Puncture Site RT RADIAL Blood Gas Patient Temperature 98.6 Blood Gas HCO3 23 Blood Gas Base Excess 0.2 Blood Gas Oxygen Saturation 98 Arterial Blood pH 7.50 Arterial Blood Partial Pressure CO2 30 Arterial Blood Partial Pressure O2 186 Arterial Blood Oxygen Content 16.9 Arterial Blood Carboxyhemoglobin 0.8 Arterial Blood Methemoglobin 1.1 Blood Gas Hemoglobin 12.0 Oxygen Delivery Device VENTILATOR Blood Gas Ventilator Setting IMV16/450/PEEP7/PS10 Blood Gas Inspired Oxygen 60 Date/Time Source Procedure Growth Status 08/06/17 20:25 Blood Peripheral Aerobic Blood Culture - Final NO GROWTH IN 5 DAYS Complete 08/06/17 20:25 Blood Peripheral Anaerobic Blood Culture - Final NO GROWTH IN 5 DAYS Complete 08/06/17 19:00 Nasal Aspirate Influenza Types A,B Antigen (BERNIE) - Final NEGATIVE FOR FLU A AND B ANTIGEN.... Complete 08/06/17 17:45 Urine Catheterized Urine Legionella Antigen - Final PRESUMPTIVE NEGATIVE FOR LEGIONELLA P... Complete 08/06/17 17:45 Urine Catheterized Urine Streptococcus pneumoniae Antigen (M - Final PRESUMPTIVE NEGATIVE FOR STREPTOCOCCU... Complete (Gretel Baker) Gretel Baker August 13, 2017 13:04 Roshan Calles MD August 13, 2017 16:06
--- NOTE | 2017-08-13 13:15 | HHI.CCPN ---
Subjective Remarks/Hospital Course 86-year-old female presented to emergency department at [place] because of fast heart rate. She has a history of atrial fibrillation. She has had 2 ablations done in the past. She had cardioversion done last summer. She is on Eliquis. She is not on any medication for rate control now. The patient has been having a hard fast heart rate for several days at least. She denies any chest pain. She had an EKG in May of this year which showed sinus rhythm. She takes lisinopril for high blood pressure. She does have chronic pain and is on tramadol. Also hypothyroidism on levothyroxine. SUBJ 08/07: Heart rate remains from 90-130 on Cardizem infusion 15 mg/h. still remains what appears to be a flutter with RVR. Due to Cardizem infusion shortage, will start Cardizem 60 mg p.o. every 6 hours and attempt weaning Cardizem IV. For rate control use esmolol if needed as patient is allergic to Amio 08/13:: [facility] reconsult note: Patient underwent EP ablation procedure for atrial fibrillation by Dr. Pickard today under general anesthesia. Postprocedure patient was extubated however almost immediately became tachypneic and hypoxemic. Sats dropped to 80% per RN and patient was reintubated. Postprocedure chest x-ray shows pulmonary edema and left lower lobe consolidation (I am unable to review it myself due to system error). Patient received 40 of Lasix in PACU. I will discontinue IV fluids and place on 40 mg IV every 12 Lasix. Remains sedated with propofol. Remains in sinus bradycardia heart rate 55/min Objective Vital Signs Date Time Temp Pulse Resp B/P (MAP) Pulse Ox O2 Delivery O2 Flow Rate FiO2 08/13/17 12:49 100 40 08/13/17 11:05 57 16 98/56 (70) Mechanical Ventilator 08/13/17 10:36 97.9 08/13/17 07:00 3.00 Intake and Output 08/13/17 08/13/17 08/14/17 08:00 16:00 00:00 Intake Total 358 ml Output Total 1700 ml Balance -1700 ml 358 ml Result Diagram: 08/13/17 0500 08/13/17 0500 Other Results Laboratory Tests Test 08/13/17 11:51 Blood Gas Puncture Site RT RADIAL Blood Gas Patient Temperature 98.6 Blood Gas HCO3 23 mmol/L (22-26) Blood Gas Base Excess 0.2 mmol/L (-2-2) Blood Gas Oxygen Saturation 98 % (90-100) Arterial Blood pH 7.50 (7.380-7.420) Arterial Blood Partial Pressure CO2 30 mmHg (38-42) Arterial Blood Partial Pressure O2 186 mmHg (61-120) Arterial Blood Oxygen Content 16.9 Vol % (12.0-20.0) Arterial Blood Carboxyhemoglobin 0.8 % (0-4) Arterial Blood Methemoglobin 1.1 % (0-2) Blood Gas Hemoglobin 12.0 G/DL (12.0-16.0) Oxygen Delivery Device VENTILATOR Blood Gas Ventilator Setting IMV16/450/PEEP7/PS10 Blood Gas Inspired Oxygen 60 % Imaging Last 24 hours Impressions Chest X-Ray 08/06/17 1610 Signed Impressions: Service Date/Time: Sunday, August 06, 2017 16:35 - CONCLUSION: Left basilar atelectasis. Sukhi Pfeiffer MD Procedures REASON FOR PROCEDURE Central venous access 08-10 PROCEDURE PERFORMED Central line placement: [facility] central line placement CONSENT Informed consent for procedure was obtained from . The risks and benefits of the procedure were discussed to include but limited to bleeding, clot formation, infection, and even . ANESTHESIA Local injection of 1% Lidocaine DESCRIPTION OF THE PROCEDURE The patient was placed in supine, mild Trendelenburg position. The area was exposed and cleansed with ChloraPrep, times two. Large sterile drape was used to cover the patient, with the site exposed, under sterile conditions including cap, face mask, sterile gown, and sterile gloves. On single attempt, the introducer needle was inserted with negative pressure in syringe and venous flash was obtained. The guide wire was then advanced without any restriction and the needle was removed. The dilator was used without any complications. Using Seldinger technique the 20 cm 7F trip[le lumen catheter was advanced over the guide wire to a depth of 17 centimeters. The guide wire was removed. All ports were aspirated with dark venous blood return and flushed easily with sterile saline. All ports were capped. Antibiotic disc was placed around central line at puncture site. The central line was secured to the skin with two interrupted 2.0 silk sutures. The area was bandaged with sterile see- through central line bandage. RADIOLOGICAL DATA Ultrasound guidance was used to locate RIJ. Doppler/color flow was used to confirm venous flow. COMPLICATIONS: No apparent complications ESTIMATED BLOOD LOSS: Less than 1 cc. Desi Quick MD August 10, 2017 05:17 <Electronically signed by Desi Quick MD> 08/10/17 0517 PATIENT PULLED LINE EARLY THIS MORNING ALREADY HAD NO ACCESS FOR LABS ETC Objective Remarks GENERAL: Well-nourished, well-developed patient, who is intubated sedated with propofol SKIN: Warm and dry. HEAD: Normocephalic. ENT: No scleral icterus. No injection or drainage. Orotracheally intubated NECK: Supple, trachea midline. No JVD or lymphadenopathy. CARDIOVASCULAR: Sinus bradycardia, no murmurs, gallops, or rubs. RESPIRATORY: Breath sounds equal bilaterally. IMV changed to PRVC. An entry diminished at the bases with bilateral crackles GASTROINTESTINAL: Abdomen soft, non-tender, nondistended. MUSCULOSKELETAL: No cyanosis, or edema. NEURO EXAM: The patient sedated with propofol but opens eyes to verbal stimuli. Moving extremities weakly. A/P Assessment and Plan Neuro: -Remains sedated with propofol -Hold sedation when ready for weaning trial -Continue home meds and morphine as needed, for chronic back pain Resp: Acute hypoxemic respiratory failure -Change went more from IMV to PRVC -Titrate FiO2 to keep saturation more than 90%, currently oxygen is at 60% -Wean PEEP from 10-8 continue to wean as tolerated -CPAP trial as tolerated -Check sputum culture -Levalbuterol as needed CVS: Acute exacerbation of systolic heart failure Atrial fibrillation/flutter s/p EP ablation -Patient is status post successful ablation of atrial fibrillation/flutter -Continue Cardizem CD, flecainide, Eliquis -Received IV Lasix 40 mg 1, continue IV Lasix 40 every 12, hold p.o. 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
--- NOTE | 2017-08-13 13:29 | PD.CARD ---
Atrial Fibrillation Ablation PROCEDURE DATE: August 13, 2017 PROCEDURES PERFORMED: 1. Electrophysiology study on Isuprel infusion 2. CS cannulation 3. 3-D mapping 4. Transseptal approach 5. Right and left heart catheterization 6. Intracardiac echo 7. Radiofrequency ablation of atrial fibrillation 8. Pulmonary vein isolation 9. Posterior wall ablation 10. Mitral valve isolation 11. Mitral line creation 12. Left atrial tachycardia ablation 13. Roof line creation 14. Floor line creation 15. Anterior and posterior ablation 16. Cardioversion INDICATIONS FOR THE PROCEDURE Ms. Romo is a 86-year-old female with atrial fibrillation, very symptomatic, heart rate cannot be controlled, referred for electrophysiology study and ablation. The risks, the nature and the benefits of the procedure were clearly stated to her. The risks include pneumothorax, cardiac perforation , stroke, need for open heart surgery and even . The patient understood and agreed to proceed. DESCRIPTION OF THE PROCEDURE IN DETAIL As written informed consent was obtained prior to esophageal echocardiogram, the patient was kept on the table where she was prepped and draped in the usual sterile fashion. Conscious sedation was initiated and maintained throughout the procedure by the anesthesiologist. Once sedation was verified, the right and left inguinal areas were anesthetized with 2% Xylocaine. Using modified Seldinger technique, the left femoral vein was cannulated on three occasions, three guidewires were advanced. Over the wire a 6, 7 and a 10-[place] were advanced. Then the left femoral artery was cannulated on one occasion, one guidewire was advanced. Over the wire a 4-[place]quet was advanced. Then the right femoral vein was cannulated on one occasion, one guidewire was advanced. Over the wire a 8-[place] H[place]quet was advanced. Then under fluoroscopic guidance through the 6 and 7-[place]quet, two 5-[place] Andrew curved quadripolar electrophysiology catheters were advanced and placed around the His as well as coronary sinus. Basic interval was measured. The patient was in atrial fibrillation. Through the 10-[place], a [employer]pace Tesfaye AcuNav intracardiac echo catheter was advanced and placed at the right atrium. Multiple view was obtained. There was no pericardial effusion, pulmonary vein was seen, atrial septal was visualized. Then the 8-[place]emaquet in the right femoral vein was exchanged for Agilis transseptal sheath that was placed all the way to the superior vena cava. Through the sheath a Yung needle was advanced, then the sheath, the dilator and the needle were progressed until foci engaged. Once engaged, the needle was advanced. RF was delivered for 2 seconds. I was able to cross into the left atrium. Once the needle crossed, the dilator was advanced. Once the dilator crossed, the sheath was advanced. Once the sheath crossed, the dilator and the needle were removed. At this point I did flood the system and fluid movement was seen in the left atrium the indicates the sheath is in good position. The patient already received 10,000 units of heparin. The goal is to keep an ACT around 350 during ablation. Then through the sheath a [place]. Tom 20 pulse circumferential catheter was advanced. Using Hickies endocardial solution mapping system, a two-dimensional configuration of the left atrium was obtained. Points were taken at the left superior and inferior veins, right superior and inferior veins, mitral valve, and appendages. Then through the sheath a [place]. Tom TactiCath 65cm 3.5mm irrigated tipped mapping and radiofrequency ablation catheter was advanced. Esophageal probe was placed temperature monitoring during ablation. When it increased to 0.5 degrees Celsius above baseline, I moved to a different area of the atrium. First I did isolate the left inferior vein. There was no significant signal into left inferior vein. Left atrial appendage was isolated. I did make a big [place] around the veins. Posterior was ablated. Then a roof line was created, a floor line was created, a mitral line was isolated, then the mitral valve was isolated. I did create a line from the floor to the roof area, passing by the left atrial appendage. Then the right superior and inferior veins were isolated. I did remap the atrium. There is no significant signal in the atrium. At this point I decided to proceed with cardioversion. A 200 sync biphasic joule was delivered that converted the patient into sinus rhythm. At that point I did advance the circumferential catheter again into the vein. There was no signal into the vein, pacing from the vein showed no conduction to the atrium. Isuprel infusion was initiated at 10 mcg for 10 minutes. No tachyarrhythmia was induced, post Isuprel no tachyarrhythmia was induced. At that point the procedure was complete. All catheters were removed, atrial septal sheath was exchanged for 9-[place] Hemaquet, intracardiac echo showed no pericardial effusion. There is still good flow in the pulmonary vein. The patient is going to be transferred to the recovery room. No incident report. The patient tolerated the procedure. Blood loss was minimal. FINDINGS 1. Electrocardiogram: At baseline the patient was in atrial fibrillation, post procedure the patient was in sinus rhythm. 2. Basic interval: Base cycle length was around 550. Post ablation she was around 960 milliseconds. 3. Tachyarrhythmia: Atrial fibrillation was mapped and ablated. The ablation was successful. CONCLUSION Successful electrophysiology study, mapping, radiofrequency ablation of atrial fibrillation, pulmonary vein isolation, posterior ablation, mitral valve isolation, mitral line creation, roof line creation, floor line creation and cardioversion. COMMENTS AND RECOMMENDATIONS The patient is going to be transferred to the telemetry unit. Will be observed and when stable can be discharged home. Leo Pickard MD August 13, 2017 13:29
[2017-08-13] MEDS: SODIUM CHLORIDE 0.9% FLUSH 10 ML FLUSH IV FLUSH SCH ×2 (15:00→21:47)
[2017-08-13] MEDS ORDERED: PROPOFOL 1000 MG/100 ML IV PRN (15:30)
--- NOTE | 2017-08-13 16:21 | EKG ---
Date Performed: 08/13/2017 Time Performed: 10:54:35 PTAGE: 86 years EKG: SINUS BRADYCARDIA RIGHT ATRIAL ENLARGEMENT NONSPECIFIC ST & T-WAVE ABNORMALITY PROLONGED QT INTERVAL ABNORMAL ECG when compared to prior ekg, patient has converted from atrial fibrillation to sinus bradycardia. PREVIOUS TRACING : 08/10/2017 04.31 DOCTOR: Felisha Andersen Interpretating Date/Time 08/13/2017 16:20:01
[2017-08-13] MEDS: niCARdipine 25 MG/NS 250 ML Vial2Bag or IV room IV PRN ×4 (17:48→21:39)
[2017-08-13] MEDS: CHLORHEXIDINE 0.12% (ORAL KIT) 15 ML CUP MT SCH (21:47)
[2017-08-13] MEDS: FLECAINIDE ACETATE 100 MG TAB PO SCH (21:47)
[2017-08-14] VITALS (20 sets, daily range): BP systolic 117–152; BP diastolic 55–67; PULSE 65–86; RESP 17–43; TEMP 98–98.8; O2SAT 87–98
[2017-08-14] MEDS: niCARdipine 25 MG/NS 250 ML Vial2Bag or IV room IV PRN ×4 (02:06→05:33)
[2017-08-14] MEDS: LEVOTHYROXINE SODIUM 88 MCG TAB PO SCH (04:11)
[2017-08-14 06:46] LABS: INTERNATIONAL NORMALIZED RATIO 1.3 RATIO; PROTHROMBIN TIME - PATIENT 13.3 SEC (9.8-11.6)
[2017-08-14] MEDS: CHLORHEXIDINE 0.12% (ORAL KIT) 15 ML CUP MT SCH ×2 (08:00→20:00)
[2017-08-14] MEDS: APIXABAN 5 MG TABLET PO SCH ×2 (08:14→21:09)
[2017-08-14] MEDS: DOCUSATE SODIUM 100 MG CAP PO SCH ×2 (08:14→21:08)
[2017-08-14] MEDS: SODIUM CHLORIDE 0.9% FLUSH 10 ML FLUSH IV FLUSH PRN (08:14)
[2017-08-14] MEDS: FUROSEMIDE 40 MG/4 ML VIAL IV PUSH SCH ×2 (08:14→17:12)
[2017-08-14] MEDS: SODIUM CHLORIDE 0.9% FLUSH 10 ML FLUSH IV FLUSH SCH ×2 (08:14→21:00)
[2017-08-14] MEDS: DILTIAZEM-CD 180 MG CAP ER PO SCH (08:14)
[2017-08-14] MEDS: FLECAINIDE ACETATE 100 MG TAB PO SCH ×2 (08:15→21:08)
[2017-08-14] MEDS: FAMOTIDINE 20 MG TAB PO SCH ×2 (08:15→21:09)
[2017-08-14] MEDS: RESP: LEVALBUTEROL HYDROCHLORIDE 1.25 MG/3 ML NEB (PRN) NEB (08:34)
[2017-08-14] MEDS: COLESEVELAM HCL 625 MG TAB PO SCH ×3 (09:00→18:00)
--- NOTE | 2017-08-14 11:19 | HHI.HCPN ---
Reason for visit a. To assist with evaluation and management of symptoms including:pain, anxiety b. To assist medical decision maker(s) with: better understanding of current medical conditions; weighing benefits/burdens of medical treatment options; making medical treatment decisions. Subjective/Interval History Patient is a 86-year-old female the presented to [facility] emergency department on 08/06/2017 for complaints of palpitation. Patient has had a history of A. fib and has had 2 ablations done in the past. Patient had cardioversion done last summer. Patient currently is on Eliquis. In the ER: * Temperature is 97.4, pulse is 159, respirations 20, blood pressure is 133/67, pulse ox is 99% * WBCs 9.0, hemoglobin is 11.3, hematocrit 34.7, platelets 309, * Sodium was 141, potassium is 4.6, chloride 96, BUN 31, creatinine is 1.40 * Troponin I 0.03, and 0.04 and 0.02 * BNP is 1077 * TSH is 11.3 * EKG shows narrow complex tachycardia rate of 150. Patient was given IV Lopressor and small amount of fluid. Case was discussed with plating equipment tender and recommend going to the [facility] for evaluation by Dr. Pickard who has 2 ablations in the past. Patient was transferred to [facility] and placed in the ICU. 08/07/2017- Dr. Pickard came an evaluated patient. Last ablation was January 2017. Recommendation was to try amiodarone and if heart rate cannot be controlled, will proceed to ablation. Patient's care was transferred to hospitalist services. 08/08/2017. Patient's HR at 120s despite multiple medication, and EPS was ordered. 08/09 to . It is noted patient has had episodes of confusion during hospital stay. Patient's HR controlled with Esmolol. Cardiology discussed with patient about consideration of ischemic evaluation, but patient had said to leave it alone. There had been episode of hypotension and give NS bolus. Patient has had right arm tingling. 08/11/2017- Pt was seen by neurology for confusion, which feels patient has encephalopathy and likely multifactorial related to medications, hypertension, pain meds. Pt less likely to be embolic infact. EEG show mild encephalopathy.Neurology did note patient confusion seem to be improving. 08/12- neurology indicate patient does remember seeing neurologist and confusion has improved. Dr. Neeraj whitmore came by and met with and patient. Patient is schedule to undergo procedure the next morning. 08/13.Palliative care was consulted to review goals of care, but patient is currently undergoing ablation which was sucessful. 08/14. Patient on my visit is confused, but denies pain. She does have some anxiety and ask for food. She stated she was hungry, but when nurse came in earlier and assisst her with feeding, she decline and said she was full. She does not remember the name of the hospital or who the president is. I called and spoke with patient's , gave her a clinical update. Spoke about advance care planning (30 min) ==He endorse that she usually is not this confused, but since this hospitalization, her confusion has fluctuated. == When I review code status, he does not even want a bipap for , and definitely said would not want intubation. he is leaning towards no chest compression, acls, or shock, but since she just completed procedure, ask me to call plating equipment tender to get his perspective. == goals is rehab so she can get a bit stronger. == They have a living will. Family/friend interactions see hpi for discussion with . Advance Directives Living Will: Completed, but not made available ( normally takes care of that, does not know where that is.) Objective Vital Signs Date Time Temp Pulse Resp B/P (MAP) Pulse Ox O2 Delivery O2 Flow Rate FiO2 08/14/17 10:20 93 Nasal Cannula 6.00 08/14/17 10:00 84 08/14/17 09:00 78 20 124/55 (78) 87 08/14/17 08:35 96 Nasal Cannula 4.00 08/14/17 08:00 76 08/14/17 08:00 98.8 76 26 127/58 (81) 95 08/14/17 07:00 93 Nasal Cannula 4.00 08/14/17 07:00 75 34 139/60 (86) 93 08/14/17 07:00 75 139/60 08/14/17 06:00 66 08/14/17 05:33 66 113/54 08/14/17 04:00 98.7 65 19 120/59 (79) 92 08/14/17 04:00 65 08/14/17 02:06 69 125/61 5/23/18 02:00 67 08/14/17 00:00 68 08/14/17 00:00 98.0 68 43 117/56 (76) 97 08/13/17 22:00 63 08/13/17 21:39 63 121/57 08/13/17 20:00 67 08/13/17 20:00 98.9 62 18 114/56 (75) 92 08/13/17 19:45 94 Nasal Cannula 2.00 08/13/17 19:25 79 163/83 08/13/17 19:00 97 Nasal Cannula 3.50 40 08/13/17 19:00 79 157/66 08/13/17 18:47 81 164/67 08/13/17 18:18 78 152/65 08/13/17 18:00 77 08/13/17 17:48 77 185/74 08/13/17 16:45 96 Nasal Cannula 2.00 08/13/17 16:45 96 Nasal Cannula 2 08/13/17 16:00 97.9 60 16 157/68 (97) 100 08/13/17 16:00 40 08/13/17 16:00 60 08/13/17 15:45 100 40 08/13/17 14:36 100 40 08/13/17 14:35 40 08/13/17 14:00 66 08/13/17 12:49 100 40 08/13/17 12:49 40 08/13/17 12:45 40 08/13/17 12:00 98.8 59 8 162/69 (100) 100 08/13/17 12:00 59 08/13/17 12:00 60 08/13/17 11:47 60 08/13/17 11:05 57 16 98/56 (70) 100 Mechanical Ventilator 60 08/13/17 11:05 60 08/13/17 11:00 100 100 08/13/17 11:00 57 16 105/54 (71) 100 Mechanical Ventilator 60 Intake & Output 08/14/17 08/14/17 07:00 19:00 Intake Total 610 ml Output Total 1800 ml Balance -1190 ml Intake Oral 40 ml IV Total 570 ml Output Urine Total 1800 ml Stool Total 0 ml Bladder Scan Volume Amount 424 ml # Bowel Movements 0 Physical Exam CONSTITUTIONAL/GENERAL: This is a fatigued elderly female, somewhat fatigued TUBES/LINES/DRAINS:no SKIN: No jaundice, rashes, or lesions. Ecchymoses on upper extremities. No wounds seen anteriorly. Skin temperature appropriate. Not diaphoretic. HEAD: Atraumatic. Normocephalic. EYES: Pupils equal and round and reactive. Extraocular motions intact. No scleral icterus. No injection or drainage. Fundi not examined. ENT: Hearing grossly normal. Nose without bleeding or purulent drainage. Throat without visible erythema, exudates, masses, or lesions. NECK: Trachea midline. Supple, nontender. No palpable thyroid enlargement or nodularity. CARDIOVASCULAR: Regular rate and rhythm without murmurs, gallops, or rubs. No JVD. Peripheral pulses symmetric. RESPIRATORY/CHEST: Symmetric, unlabored respirations. Clear to auscultation. Breath sounds equal bilaterally. No wheezes, rales, or rhonchi. GASTROINTESTINAL: Abdomen soft, non-tender, nondistended. No hepato-splenomegaly , or palpable masses. No guarding. Bowel sounds present. GENITOURINARY: Without palpable bladder distension. Strong catheter in place. MUSCULOSKELETAL: Extremities without clubbing, cyanosis, or edema. No joint tenderness or effusion noted. No calf tenderness. No mottling or clubbing. LYMPHATICS: No palpable cervical or supraclavicular adenopathy. NEUROLOGICAL: Awake and alert. confused Moves all extremities. PSYCHIATRIC: No obvious anxiety/depression. no apparent hallucinations or other psychotic thought process. Diagnostic Tests Laboratory Laboratory Tests Test 08/12/17 05:07 08/12/17 11:35 08/13/17 00:00 08/13/17 05:00 White Blood Count 11.7 TH/MM3 (4.0-11.0) 14.4 TH/MM3 (4.0-11.0) Red Blood Count 3.58 MIL/MM3 (4.00-5.30) 3.97 MIL/MM3 (4.00-5.30) Hemoglobin 10.8 GM/DL (11.6-15.3) 11.7 GM/DL (11.6-15.3) Hematocrit 32.8 % (35.0-46.0) 35.6 % (35.0-46.0) Mean Corpuscular Volume 91.5 FL (80.0-100.0) 89.8 FL (80.0-100.0) Mean Corpuscular Hemoglobin 30.0 PG (27.0-34.0) 29.5 PG (27.0-34.0) Mean Corpuscular Hemoglobin Concent 32.8 % (32.0-36.0) 32.9 % (32.0-36.0) Red Cell Distribution Width 16.1 % (11.6-17.2) 15.7 % (11.6-17.2) Platelet Count 368 TH/MM3 (150-450) 388 TH/MM3 (150-450) Mean Platelet Volume 8.3 FL (7.0-11.0) 7.8 FL (7.0-11.0) Neutrophils (%) (Auto) 82.5 % (16.0-70.0) 86.2 % (16.0-70.0) Lymphocytes (%) (Auto) 7.6 % (9.0-44.0) 6.0 % (9.0-44.0) Monocytes (%) (Auto) 9.5 % (0.0-8.0) 7.6 % (0.0-8.0) Eosinophils (%) (Auto) 0.1 % (0.0-4.0) 0.0 % (0.0-4.0) Basophils (%) (Auto) 0.3 % (0.0-2.0) 0.2 % (0.0-2.0) Neutrophils # (Auto) 9.7 TH/MM3 (1.8-7.7) 12.4 TH/MM3 (1.8-7.7) Lymphocytes # (Auto) 0.9 TH/MM3 (1.0-4.8) 0.9 TH/MM3 (1.0-4.8) Monocytes # (Auto) 1.1 TH/MM3 (0-0.9) 1.1 TH/MM3 (0-0.9) Eosinophils # (Auto) 0.0 TH/MM3 (0-0.4) 0.0 TH/MM3 (0-0.4) Basophils # (Auto) 0.0 TH/MM3 (0-0.2) 0.0 TH/MM3 (0-0.2) CBC Comment DIFF FINAL DIFF FINAL Differential Comment Prothrombin Time 12.4 SEC (9.8-11.6) Prothromb Time International Ratio 1.2 RATIO Blood Urea Nitrogen 21 MG/DL (7-18) 13 MG/DL (7-18) Creatinine 0.80 MG/DL (0.50-1.00) 0.76 MG/DL (0.50-1.00) Random Glucose 91 MG/DL (74-106) 104 MG/DL (74-106) Total Protein 5.5 GM/DL (6.4-8.2) 5.4 GM/DL (6.4-8.2) Albumin 2.6 GM/DL (3.4-5.0) 2.6 GM/DL (3.4-5.0) Calcium Level 6.7 MG/DL (8.5-10.1) 6.3 MG/DL (8.5-10.1) Phosphorus Level 1.4 MG/DL (2.5-4.9) 1.2 MG/DL (2.5-4.9) 1.8 MG/DL (2.5-4.9) 2.0 MG/DL (2.5-4.9) Magnesium Level 2.3 MG/DL (1.5-2.5) 1.8 MG/DL (1.5-2.5) Alkaline Phosphatase 87 U/L (45-117) 83 U/L (45-117) Aspartate Amino Transf (AST/SGOT) 29 U/L (15-37) 26 U/L (15-37) Alanine Aminotransferase (ALT/SGPT) 50 U/L (10-53) 43 U/L (10-53) Total Bilirubin 0.3 MG/DL (0.2-1.0) 0.3 MG/DL (0.2-1.0) Sodium Level 147 MEQ/L (136-145) 143 MEQ/L (136-145) Potassium Level 3.2 MEQ/L (3.5-5.1) 2.6 MEQ/L (3.5-5.1) 3.3 MEQ/L (3.5-5.1) Chloride Level 111 MEQ/L (98-107) 102 MEQ/L (98-107) Carbon Dioxide Level 24.0 MEQ/L (21.0-32.0) 26.6 MEQ/L (21.0-32.0) Anion Gap 12 MEQ/L (5-15) 14 MEQ/L (5-15) Estimat Glomerular Filtration Rate 68 ML/MIN (>89) 72 ML/MIN (>89) Protein Corrected Calcium 7.5 MG/DL (8.5-10.1) 7.1 MG/DL (8.5-10.1) Test 08/13/17 11:51 08/14/17 05:08 Blood Gas Puncture Site RT RADIAL Blood Gas Patient Temperature 98.6 Blood Gas HCO3 23 mmol/L (22-26) Blood Gas Base Excess 0.2 mmol/L (-2-2) Blood Gas Oxygen Saturation 98 % (90-100) Arterial Blood pH 7.50 (7.380-7.420) Arterial Blood Partial Pressure CO2 30 mmHg (38-42) Arterial Blood Partial Pressure O2 186 mmHg (61-120) Arterial Blood Oxygen Content 16.9 Vol % (12.0-20.0) Arterial Blood Carboxyhemoglobin 0.8 % (0-4) Arterial Blood Methemoglobin 1.1 % (0-2) Blood Gas Hemoglobin 12.0 G/DL (12.0-16.0) Oxygen Delivery Device VENTILATOR Blood Gas Ventilator Setting IMV16/450/PEEP7/PS10 Blood Gas Inspired Oxygen 60 % Prothrombin Time 13.3 SEC (9.8-11.6) Prothromb Time International Ratio 1.3 RATIO Activated Partial Thromboplast Time 27.9 SEC (24.3-30.1) Result Diagram: 08/13/17 0500 08/13/17 0500 Microbiology Microbiology Date/Time Source Procedure Growth Status 08/13/17 14:45 Sputum Nasal Tracheal Aspirate Gram Stain - Final Resulted 08/13/17 14:45 Sputum Nasal Tracheal Aspirate Sputum Culture Pending Resulted Imaging Last Impressions Chest X-Ray 08/13/17 0000 Signed Impressions: CONCLUSION: Head CT 08/09/17 1639 Signed Impressions: Service Date/Time: Wednesday, August 09, 2017 17:52 - CONCLUSION: No acute disease. Abdelrahman Leary MD Head CTA 08/09/17 1624 Signed Impressions: Service Date/Time: Wednesday, August 09, 2017 17:52 - CONCLUSION: Mild fusiform dilatation of the cavernous portion of the internal carotid artery on the left. The more distal flow is normal. Abdelrahman Leary MD Neck CTA 08/09/17 0000 Signed Impressions: Service Date/Time: Wednesday, August 09, 2017 17:52 - CONCLUSION: No significant stenosis is seen. Abdelrahman Leary MD Abdomen/Pelvis CT 08/09/17 0000 Signed Impressions: Service Date/Time: Wednesday, August 09, 2017 22:20 - CONCLUSION: 1. Moderate right pleural effusion and mild left pleural effusion with accompanying atelectasis. 2. Mild amount of free fluid in the lower pelvic peritoneal cavity/cul-de-sac. 3. Edema seen throughout the subcutaneous tissues likely from anasarca. 4. Bladder diverticulum. 5. Contrast in the bladder and kidneys from prior administration. Abdelrahman Leary MD Abdomen X-Ray 08/09/17 0000 Signed Impressions: Service Date/Time: Wednesday, August 09, 2017 20:35 - CONCLUSION: 1. Mild nonspecific colonic dilatation. 2. Status post vertebroplasty of L2. 3. 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 4. 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 Abdelrahman Leary MD Assessment and Plan Disease Oriented Problem List: (1) Atrial fibrillation with RVR Comment: underwent ablation (2) Compression fracture (3) Encephalopathy, metabolic (4) AAA (abdominal aortic aneurysm) Symptom Scale: Pertinent Non-Medical Issues Psychosocial: and 2 sons Spiritual:Lutheran Legal: Has living will, but does not know where that is. Ethical issues impacting care:none Important Contacts Abdelrahman Romo () [phone] cell [phone] home phone Prognosis Prognosis is guarded. At risk for multiple hospitalizations, sudden decline. Code Status: Alternative Code Plan == Capacity- currently patient does not have capacity to make medical decision. confused. This may be temporary and she may regain. == Health care decision maker- pt does have a living will, but patient's spouse does not know where it is at. [place], pt's spouse / Abdelrahman Romo is the health care surrogate. == symptoms: Anxiety- from confusion. encephlopathy likely is multifactorial, in new surroundings, and medical, just had procedure/ and a. fib. no further med recs at this point. hopeful pt can regain capacity. pain- has history of chronic pain/ compression fracture, but currently denies pain. == goals of Treatment (Advance care planning >30 min). Spoke with : Plan is rehab code status is: no intubation again. does not even want bipap should she get into another respiratory distress We talked about peg or trach in which he has declined. unsure about chest compression/acls/ shock- he is leaning towards a full DNR, but given that pt just had procedure done, would like to get cardiology perspecitive. == Palliative care will follow up to review goals of care and make recommendation for symptom management. Attestation To help prompt me to consider important information that might be impacting today's encounter and assessment, information from prior notes written by myself or my colleagues may have been "brought forward" into today's note. My signature on this note, however, is an attestation that I personally performed the exam, history, and/or decision-making noted today, and, unless otherwise indicated, the interactions with patient, family, and staff as well as the review of records all occurred today. I also attest that the listed assessment and stated plan reflect my best clinical judgment today based on the combination of historical information, prior notes, and today's exam/ interactions. When time spent is documented, it refers only to time spent today by the signer, or if indicated, combined time spent today by collaborating physician/nurse practitioner. Jad Alvarenga MD August 14, 2017 11:19
--- NOTE | 2017-08-14 11:25 | HHI.CCPN ---
Subjective Remarks/Hospital Course 86-year-old female presented to emergency department at [place] because of fast heart rate. She has a history of atrial fibrillation. She has had 2 ablations done in the past. She had cardioversion done last summer. She is on Eliquis. She is not on any medication for rate control now. The patient has been having a hard fast heart rate for several days at least. She denies any chest pain. She had an EKG in May of this year which showed sinus rhythm. She takes lisinopril for high blood pressure. She does have chronic pain and is on tramadol. Also hypothyroidism on levothyroxine. SUBJ 08/07: Heart rate remains from 90-130 on Cardizem infusion 15 mg/h. still remains what appears to be a flutter with RVR. Due to Cardizem infusion shortage, will start Cardizem 60 mg p.o. every 6 hours and attempt weaning Cardizem IV. For rate control use esmolol if needed as patient is allergic to Amio 08/13:: [facility] reconsult note: Patient underwent EP ablation procedure for atrial fibrillation by Dr. Pickard today under general anesthesia. Postprocedure patient was extubated however almost immediately became tachypneic and hypoxemic. Sats dropped to 80% per RN and patient was reintubated. Postprocedure chest x-ray shows pulmonary edema and left lower lobe consolidation (I am unable to review it myself due to system error). Patient received 40 of Lasix in PACU. I will discontinue IV fluids and place on 40 mg IV every 12 Lasix. Remains sedated with propofol. Remains in sinus bradycardia heart rate 55/min 08/14: extubated, doing well. diuresing appropriately. confused and only oriented to person. perseverating and continues to ask for "coffee flavored ice cream." does not appear to have any other complaints. Objective Vital Signs Date Time Temp Pulse Resp B/P (MAP) Pulse Ox O2 Delivery O2 Flow Rate FiO2 08/14/17 10:20 93 Nasal Cannula 6.00 08/14/17 10:00 84 08/14/17 09:00 20 124/55 (78) 08/14/17 08:00 98.8 08/13/17 19:00 40 Intake and Output 08/14/17 08/14/17 08/15/17 08:00 16:00 00:00 Intake Total 350 ml Output Total 1800 ml Balance -1450 ml Result Diagram: 08/13/17 0500 08/13/17 0500 Other Results Laboratory Tests Test 08/13/17 11:51 Blood Gas Puncture Site RT RADIAL Blood Gas Patient Temperature 98.6 Blood Gas HCO3 23 mmol/L (22-26) Blood Gas Base Excess 0.2 mmol/L (-2-2) Blood Gas Oxygen Saturation 98 % (90-100) Arterial Blood pH 7.50 (7.380-7.420) Arterial Blood Partial Pressure CO2 30 mmHg (38-42) Arterial Blood Partial Pressure O2 186 mmHg (61-120) Arterial Blood Oxygen Content 16.9 Vol % (12.0-20.0) Arterial Blood Carboxyhemoglobin 0.8 % (0-4) Arterial Blood Methemoglobin 1.1 % (0-2) Blood Gas Hemoglobin 12.0 G/DL (12.0-16.0) Oxygen Delivery Device VENTILATOR Blood Gas Ventilator Setting IMV16/450/PEEP7/PS10 Blood Gas Inspired Oxygen 60 % Imaging Last 24 hours Impressions Chest X-Ray 08/06/17 1610 Signed Impressions: Service Date/Time: Sunday, August 06, 2017 16:35 - CONCLUSION: Left basilar atelectasis. Sukhi Pfeiffer MD Procedures REASON FOR PROCEDURE Central venous access 08-10 PROCEDURE PERFORMED Central line placement: [facility] central line placement CONSENT Informed consent for procedure was obtained from . The risks and benefits of the procedure were discussed to include but limited to bleeding, clot formation, infection, and even . ANESTHESIA Local injection of 1% Lidocaine DESCRIPTION OF THE PROCEDURE The patient was placed in supine, mild Trendelenburg position. The area was exposed and cleansed with ChloraPrep, times two. Large sterile drape was used to cover the patient, with the site exposed, under sterile conditions including cap, face mask, sterile gown, and sterile gloves. On single attempt, the introducer needle was inserted with negative pressure in syringe and venous flash was obtained. The guide wire was then advanced without any restriction and the needle was removed. The dilator was used without any complications. Using Seldinger technique the 20 cm 7F trip[le lumen catheter was advanced over the guide wire to a depth of 17 centimeters. The guide wire was removed. All ports were aspirated with dark venous blood return and flushed easily with sterile saline. All ports were capped. Antibiotic disc was placed around central line at puncture site. The central line was secured to the skin with two interrupted 2.0 silk sutures. The area was bandaged with sterile see- through central line bandage. RADIOLOGICAL DATA Ultrasound guidance was used to locate RIJ. Doppler/color flow was used to confirm venous flow. COMPLICATIONS: No apparent complications ESTIMATED BLOOD LOSS: Less than 1 cc. Desi Quick MD August 10, 2017 05:17 <Electronically signed by Desi Quick MD> 08/10/17 0517 PATIENT PULLED LINE EARLY THIS MORNING ALREADY HAD NO ACCESS FOR LABS ETC Objective Remarks GENERAL: frail, elderly female, lying in bed. awake, alert, but confused. SKIN: Warm and dry. HEAD: Normocephalic. ENT: No scleral icterus. No injection or drainage. NC o2 NECK: Supple, trachea midline. No JVD. CARDIOVASCULAR: normal rate, regular rhythm. sinus. RESPIRATORY: equal chest rise. unlabored. nc o2. GASTROINTESTINAL: Abdomen soft, non-tender, nondistended. MUSCULOSKELETAL: No cyanosis, or edema. NEURO EXAM: awake, alert. confused. RASS 0. CAM+. follows commands. A/P Assessment and Plan Neuro: -Remains sedated with propofol -Hold sedation when ready for weaning trial -Continue home meds and morphine as needed, for chronic back pain Resp: Acute hypoxemic respiratory failure- resolving. -Titrate FiO2 to keep saturation more than 90% -Wean PEEP from 10-8 continue to wean as tolerated -CPAP trial as tolerated -Levalbuterol as needed - aggressive pulmonary toilet. i.s., ez-pap, acapella. CVS: Acute exacerbation of systolic heart failure Atrial fibrillation/flutter s/p EP ablation -Patient is status post successful ablation of atrial fibrillation/flutter -Continue Cardizem CD, flecainide, Eliquis -Received IV Lasix 40 mg 1, continue IV Lasix 40 every 12, hold p.o. 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 CT Abdomen/Pelvis w/ focal aneurysmal dilatation of descending thoracic aorta 4.1cm and ascending aorta 4.2cm - no emergent intervention needed GI: -advance diet as tolerated. famotidine. /Endo: Hyponatremia now resolved Hypokalemia -Chronic hyponatremia, now corrected -Monitor trend -Aggressive electrolyte replacement -Hypothyroidism Continue home dose levothyroxine 88 mcg daily DVT GI prophylaxis -Lexx's and SCDs -Eliquis Dispo: safe to transfer out of ICU. consult hospitalist service to assume care. Yasir Stapleton MD August 14, 2017 11:25
--- NOTE | 2017-08-14 11:34 | PD.CONS ---
Consult Service Palliative Care Consult Requested By Dr. Jacobo Primary Care Physician Malachi Hua MD Reason for Consultation a. To assist with evaluation and management of symptoms including:pain, anxiety b. To assist medical decision maker(s) with: better understanding of current medical conditions; weighing benefits/burdens of medical treatment options; making medical treatment decisions. HPI History of Present Illness Patient is a 86-year-old female the presented to [facility] emergency department on 08/06/2017 for complaints of palpitation. Patient has had a history of A. fib and has had 2 ablations done in the past. Patient had cardioversion done last summer. Patient currently is on Eliquis. In the ER: * Temperature is 97.4, pulse is 159, respirations 20, blood pressure is 133/67, pulse ox is 99% * WBCs 9.0, hemoglobin is 11.3, hematocrit 34.7, platelets 309, * Sodium was 141, potassium is 4.6, chloride 96, BUN 31, creatinine is 1.40 * Troponin I 0.03, and 0.04 and 0.02 * BNP is 1077 * TSH is 11.3 * EKG shows narrow complex tachycardia rate of 150. Patient was given IV Lopressor and small amount of fluid. Case was discussed with gameplay programmer and recommend going to the [facility] for evaluation by Dr. Pickard who has 2 ablations in the past. Patient was transferred to [facility] and placed in the ICU. 08/07/2017- Dr. Pickard came an evaluated patient. Last ablation was January 2017. Recommendation was to try amiodarone and if heart rate cannot be controlled, will proceed to ablation. Patient's care was transferred to hospitalist services. 08/08/2017. Patient's HR at 120s despite multiple medication, and EPS was ordered. 08/09 to . It is noted patient has had episodes of confusion during hospital stay. Patient's HR controlled with Esmolol. Cardiology discussed with patient about consideration of ischemic evaluation, but patient had said to leave it alone. There had been episode of hypotension and give NS bolus. Patient has had right arm tingling. 08/11/2017- Pt was seen by neurology for confusion, which feels patient has encephalopathy and likely multifactorial related to medications, hypertension, pain meds. Pt less likely to be embolic infact. EEG show mild encephalopathy.Neurology did note patient confusion seem to be improving. 08/12- neurology indicate patient does remember seeing neurologist and confusion has improved. Dr. Neeraj whitmore came by and met with and patient. Patient is schedule to undergo procedure the next morning. 08/13.Palliative care was consulted to review goals of care, but patient is currently undergoing ablation which was sucessful. 08/14. Patient on my visit is confused, but denies pain. She does have some anxiety and ask for food. She stated she was hungry, but when nurse came in earlier and assisst her with feeding, she decline and said she was full. She does not remember the name of the hospital or who the president is. I called and spoke with patient's , gave her a clinical update. Spoke about advance care planning (30 min) ==He endorse that she usually is not this confused, but since this hospitalization, her confusion has fluctuated. == When I review code status, he does not even want a bipap for , and definitely said would not want intubation. he is leaning towards no chest compression, acls, or shock, but since she just completed procedure, I told him it is important to get perspective from gameplay programmer. == goals is rehab so she can get a bit stronger. == They have a living will. Function/Cognitive Trajectory Per she was not on home O2 and was able to take care of her adls. they live at their own house. Review of Systems ROS Limitations: Clinical Condition Constitutional: COMPLAINS OF: Fatigue Endocrine: DENIES: Heat/cold intolerance, Polydipsia Eyes: DENIES: Blurred vision, Eye inflammation Ears, nose, mouth, throat: DENIES: Hearing loss, Vertigo, Nasal discharge Respiratory: DENIES: Cough, Shortness of breath Cardiovascular: DENIES: Chest pain, Palpitations, Dyspnea on Exertion Gastrointestinal: DENIES: Abdominal pain Genitourinary: DENIES: Urinary frequency, Urinary incontinence Musculoskeletal: DENIES: Muscle aches, Back pain Integumentary: DENIES: Abnormal pigmentation Hematologic/Lymphatics: DENIES: Lymphadenopathy Neurologic: DENIES: Headache, Localized weakness Psychiatric: COMPLAINS OF: Confusion Past Family Social History Coded Allergies: doxycycline (Unverified Allergy, Intermediate, UNKNOWN, 08/06/17) minocycline (Unverified Allergy, Intermediate, UNKNOWN, 08/06/17) tigecycline (Unverified Allergy, Intermediate, UNKNOWN, 08/06/17) pantoprazole (Unverified Allergy, Unknown, 08/06/17) codeine (Unverified Adverse Reaction, Intermediate, UPSET STOMACH, 08/06/17 ) prednisone (Unverified Adverse Reaction, Mild, Nausea/Vomiting, 08/06/17) amlodipine (Verified Adverse Reaction, Unknown, 08/06/17) Past Medical History afib, anxiety, depression, aneurysm, high cholesterol, CAD, colitis, gerd, fibromylagia, compression fracture Past Surgical History ablation. cataract kyphoplasty Current Medications Medications (Trade) Dose Ordered Sig/Sammy Route Start Time Stop Time Status Last Admin (NS Flush) 2 ml UNSCH PRN IV FLUSH 08/06/17 17:30 08/14/17 08:14 (NS Flush) 2 ml BID IV FLUSH 08/06/17 21:00 08/14/17 08:14 (Tylenol) 650 mg Q6H PRN PO 08/06/17 17:30 (Albuterol Neb) 2.5 mg Q2HR NEB PRN INH 08/06/17 17:30 Future Hold ([facility] Nursing Information) 1 Q361D XX 08/06/17 17:30 08/06/17 23:00 (Milk Of Magnesia Liq) 30 ml Q12H PRN PO 08/06/17 17:30 08/14/17 11:09 (Senokot) 17.2 mg Q12H PRN PO 08/06/17 17:30 08/14/17 04:11 (Dulcolax Supp) 10 mg DAILY PRN RECTAL 08/06/17 17:30 08/14/17 11:09 (Lactulose Liq) 30 ml DAILY PRN PO 08/06/17 17:30 (Welchol) 625 mg TID PO 08/06/17 18:00 08/11/17 18:41 (Synthroid) 88 mcg DAILY@0600 PO 08/07/17 06:00 08/14/17 04:11 (Prinivil) 10 mg DAILY PO 08/07/17 09:00 Future Hold 08/09/17 10:16 (Ultram) 50 mg Q6H PRN PO 08/06/17 17:30 08/08/17 07:54 (Pepcid) 10 mg BID PO 08/06/17 21:00 08/14/17 08:15 (Zofran Odt) 4 mg Q6H PRN SL 08/06/17 18:00 08/13/17 04:16 (Morphine Inj) 2 mg Q3H PRN IM 08/06/17 23:30 Future Hold 08/07/17 07:07 (Medina 5-325 Mg) 1 tab Q6H PRN PO 08/07/17 12:30 08/08/17 02:44 (Lopressor Inj) 2.5 mg Q4H PRN IV PUSH 08/07/17 15:30 08/12/17 16:54 (Colace) 100 mg BID PO 08/10/17 09:00 08/14/17 08:14 (Xopenex Neb) 1.25 mg Q2HR NEB PRN NEB 08/10/17 00:15 08/14/17 08:34 (Eliquis) 5 mg BID PO 08/12/17 09:30 08/14/17 08:14 Potassium Chloride 100 ml @ 50 mls/hr Q2H PRN IV 08/12/17 09:45 Potassium Chloride 100 ml @ 50 mls/hr Q2H PRN IV 08/12/17 09:45 08/13/17 04:48 (K-Lyte Cl Eff) 50 meq UNSCH PRN PO 08/12/17 09:45 Potassium Chloride 100 ml @ 25 mls/hr UNSCH PRN IV 08/12/17 09:45 Potassium Chloride 100 ml @ 50 mls/hr Q2H PRN IV 08/12/17 09:45 Magnesium Sulfate 4 gm/Sodium Chloride 100 ml @ 50 mls/hr UNSCH PRN IV 08/12/17 09:45 (Mag-Ox) 800 mg UNSCH PRN PO 08/12/17 09:45 Magnesium Sulfate 2 gm/Sodium Chloride 100 ml @ 50 mls/hr UNSCH PRN IV 08/12/17 09:45 (K-Phos) 2,000 mg Q4H PRN PO 08/12/17 09:45 Sodium Phosphate 30 mmol/Sodium Chloride 250 ml @ 42 mls/hr UNSCH PRN IV 08/12/17 09:45 (K-Phos) 2,000 mg UNSCH PRN PO/TUBE 08/12/17 09:45 Potassium Phosphate 30 mmol/ Sodium Chloride 260 ml @ 42 mls/hr UNSCH PRN IV 08/12/17 09:45 08/13/17 04:50 (Atropine Inj) 0.5 mg UNSCH PRN IV PUSH 08/13/17 09:45 (Reglan Inj) 10 mg Q4H PRN IV PUSH 08/13/17 09:45 (Zofran Odt) 4 mg Q4H PRN PO 08/13/17 09:45 (Cardizem Cd) 180 mg DAILY PO 08/13/17 13:00 08/14/17 08:14 (Tambocor) 100 mg Q12HR PO 08/13/17 21:00 08/14/17 08:15 (Lasix Inj) 40 mg BID@ IV PUSH 08/13/17 12:30 08/14/17 08:14 (Peridex 0.12% Liq) 15 ml BID@08,20 MT 08/13/17 20:00 08/13/17 21:47 Family History denies family history Substance Use Tobacco:no Alcohol:ocassional Prescription med abuse:no Illicits:no Psychosocial History 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 Originally from [place]. 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 Spiritual/Cultural Factors Zoroastrianism Living Will: Completed, but not made available ( normally takes care of that, does not know where that is.) Physical Exam Vital Signs Date Time Temp Pulse Resp B/P (MAP) Pulse Ox O2 Delivery O2 Flow Rate FiO2 08/14/17 10:20 93 Nasal Cannula 6.00 08/14/17 10:00 84 08/14/17 10:00 88 Nasal Cannula 6.00 08/14/17 09:00 78 20 124/55 (78) 87 08/14/17 08:35 96 Nasal Cannula 4.00 08/14/17 08:00 76 08/14/17 08:00 98.8 76 26 127/58 (81) 95 08/14/17 07:00 93 Nasal Cannula 4.00 08/14/17 07:00 75 34 139/60 (86) 93 08/14/17 07:00 75 139/60 08/14/17 06:00 66 08/14/17 05:33 66 113/54 5/23/18 04:00 98.7 65 19 120/59 (79) 92 08/14/17 04:00 65 08/14/17 02:06 69 125/61 08/14/17 02:00 67 08/14/17 00:00 68 08/14/17 00:00 98.0 68 43 117/56 (76) 97 08/13/17 22:00 63 08/13/17 21:39 63 121/57 08/13/17 20:00 67 08/13/17 20:00 98.9 62 18 114/56 (75) 92 08/13/17 19:45 94 Nasal Cannula 2.00 08/13/17 19:25 79 163/83 08/13/17 19:00 97 Nasal Cannula 3.50 40 08/13/17 19:00 79 157/66 08/13/17 18:47 81 164/67 08/13/17 18:18 78 152/65 08/13/17 18:00 77 08/13/17 17:48 77 185/74 08/13/17 16:45 96 Nasal Cannula 2.00 08/13/17 16:45 96 Nasal Cannula 2 08/13/17 16:00 97.9 60 16 157/68 (97) 100 08/13/17 16:00 40 08/13/17 16:00 60 08/13/17 15:45 100 40 08/13/17 14:36 100 40 08/13/17 14:35 40 08/13/17 14:00 66 08/13/17 12:49 100 40 08/13/17 12:49 40 08/13/17 12:45 40 08/13/17 12:00 98.8 59 8 162/69 (100) 100 08/13/17 12:00 59 08/13/17 12:00 60 08/13/17 11:47 60 Exam CONSTITUTIONAL/GENERAL: This is a fatigued elderly female, somewhat fatigued TUBES/LINES/DRAINS:no SKIN: No jaundice, rashes, or lesions. . No wounds seen anteriorly. Skin temperature appropriate. Not diaphoretic. HEAD: Atraumatic. Normocephalic. EYES: Pupils equal and round and reactive. Extraocular motions intact. No scleral icterus. No injection or drainage. Fundi not examined. ENT: Hearing grossly normal. Nose without bleeding or purulent drainage. Throat without visible erythema, exudates, masses, or lesions. NECK: Trachea midline. Supple, nontender. No palpable thyroid enlargement or nodularity. CARDIOVASCULAR: Regular rate and rhythm without murmurs, gallops, or rubs. No JVD. Peripheral pulses symmetric. RESPIRATORY/CHEST: Symmetric, unlabored respirations. Clear to auscultation. Breath sounds equal bilaterally. No wheezes, rales, or rhonchi. GASTROINTESTINAL: Abdomen soft, non-tender, nondistended. No hepato-splenomegaly , or palpable masses. No guarding. Bowel sounds present. GENITOURINARY: Without palpable bladder distension. Strong catheter in place. MUSCULOSKELETAL: Extremities without clubbing, cyanosis. 2+ edema No joint tenderness or effusion noted. No calf tenderness. No mottling or clubbing. LYMPHATICS: No palpable cervical or supraclavicular adenopathy. NEUROLOGICAL: Awake and alert. confused Moves all extremities. PSYCHIATRIC: No obvious anxiety/depression. no apparent hallucinations or other psychotic thought process. Diagnostic Tests Laboratory Laboratory Tests Test 08/12/17 05:07 08/12/17 11:35 08/13/17 00:00 08/13/17 05:00 White Blood Count 11.7 TH/MM3 (4.0-11.0) 14.4 TH/MM3 (4.0-11.0) Red Blood Count 3.58 MIL/MM3 (4.00-5.30) 3.97 MIL/MM3 (4.00-5.30) Hemoglobin 10.8 GM/DL (11.6-15.3) 11.7 GM/DL (11.6-15.3) Hematocrit 32.8 % (35.0-46.0) 35.6 % (35.0-46.0) Mean Corpuscular Volume 91.5 FL (80.0-100.0) 89.8 FL (80.0-100.0) Mean Corpuscular Hemoglobin 30.0 PG (27.0-34.0) 29.5 PG (27.0-34.0) Mean Corpuscular Hemoglobin Concent 32.8 % (32.0-36.0) 32.9 % (32.0-36.0) Red Cell Distribution Width 16.1 % (11.6-17.2) 15.7 % (11.6-17.2) Platelet Count 368 TH/MM3 (150-450) 388 TH/MM3 (150-450) Mean Platelet Volume 8.3 FL (7.0-11.0) 7.8 FL (7.0-11.0) Neutrophils (%) (Auto) 82.5 % (16.0-70.0) 86.2 % (16.0-70.0) Lymphocytes (%) (Auto) 7.6 % (9.0-44.0) 6.0 % (9.0-44.0) Monocytes (%) (Auto) 9.5 % (0.0-8.0) 7.6 % (0.0-8.0) Eosinophils (%) (Auto) 0.1 % (0.0-4.0) 0.0 % (0.0-4.0) Basophils (%) (Auto) 0.3 % (0.0-2.0) 0.2 % (0.0-2.0) Neutrophils # (Auto) 9.7 TH/MM3 (1.8-7.7) 12.4 TH/MM3 (1.8-7.7) Lymphocytes # (Auto) 0.9 TH/MM3 (1.0-4.8) 0.9 TH/MM3 (1.0-4.8) Monocytes # (Auto) 1.1 TH/MM3 (0-0.9) 1.1 TH/MM3 (0-0.9) Eosinophils # (Auto) 0.0 TH/MM3 (0-0.4) 0.0 TH/MM3 (0-0.4) Basophils # (Auto) 0.0 TH/MM3 (0-0.2) 0.0 TH/MM3 (0-0.2) CBC Comment DIFF FINAL DIFF FINAL Differential Comment Prothrombin Time 12.4 SEC (9.8-11.6) Prothromb Time International Ratio 1.2 RATIO Blood Urea Nitrogen 21 MG/DL (7-18) 13 MG/DL (7-18) Creatinine 0.80 MG/DL (0.50-1.00) 0.76 MG/DL (0.50-1.00) Random Glucose 91 MG/DL (74-106) 104 MG/DL (74-106) Total Protein 5.5 GM/DL (6.4-8.2) 5.4 GM/DL (6.4-8.2) Albumin 2.6 GM/DL (3.4-5.0) 2.6 GM/DL (3.4-5.0) Calcium Level 6.7 MG/DL (8.5-10.1) 6.3 MG/DL (8.5-10.1) Phosphorus Level 1.4 MG/DL (2.5-4.9) 1.2 MG/DL (2.5-4.9) 1.8 MG/DL (2.5-4.9) 2.0 MG/DL (2.5-4.9) Magnesium Level 2.3 MG/DL (1.5-2.5) 1.8 MG/DL (1.5-2.5) Alkaline Phosphatase 87 U/L (45-117) 83 U/L (45-117) Aspartate Amino Transf (AST/SGOT) 29 U/L (15-37) 26 U/L (15-37) Alanine Aminotransferase (ALT/SGPT) 50 U/L (10-53) 43 U/L (10-53) Total Bilirubin 0.3 MG/DL (0.2-1.0) 0.3 MG/DL (0.2-1.0) Sodium Level 147 MEQ/L (136-145) 143 MEQ/L (136-145) Potassium Level 3.2 MEQ/L (3.5-5.1) 2.6 MEQ/L (3.5-5.1) 3.3 MEQ/L (3.5-5.1) Chloride Level 111 MEQ/L (98-107) 102 MEQ/L (98-107) Carbon Dioxide Level 24.0 MEQ/L (21.0-32.0) 26.6 MEQ/L (21.0-32.0) Anion Gap 12 MEQ/L (5-15) 14 MEQ/L (5-15) Estimat Glomerular Filtration Rate 68 ML/MIN (>89) 72 ML/MIN (>89) Protein Corrected Calcium 7.5 MG/DL (8.5-10.1) 7.1 MG/DL (8.5-10.1) Test 08/13/17 11:51 08/14/17 05:08 Blood Gas Puncture Site RT RADIAL Blood Gas Patient Temperature 98.6 Blood Gas HCO3 23 mmol/L (22-26) Blood Gas Base Excess 0.2 mmol/L (-2-2) Blood Gas Oxygen Saturation 98 % (90-100) Arterial Blood pH 7.50 (7.380-7.420) Arterial Blood Partial Pressure CO2 30 mmHg (38-42) Arterial Blood Partial Pressure O2 186 mmHg (61-120) Arterial Blood Oxygen Content 16.9 Vol % (12.0-20.0) Arterial Blood Carboxyhemoglobin 0.8 % (0-4) Arterial Blood Methemoglobin 1.1 % (0-2) Blood Gas Hemoglobin 12.0 G/DL (12.0-16.0) Oxygen Delivery Device VENTILATOR Blood Gas Ventilator Setting IMV16/450/PEEP7/PS10 Blood Gas Inspired Oxygen 60 % Prothrombin Time 13.3 SEC (9.8-11.6) Prothromb Time International Ratio 1.3 RATIO Activated Partial Thromboplast Time 27.9 SEC (24.3-30.1) Result Diagram: 08/13/17 0500 08/13/17 0500 Microbiology Microbiology Date/Time Source Procedure Growth Status 08/13/17 14:45 Sputum Nasal Tracheal Aspirate Gram Stain - Final Resulted 08/13/17 14:45 Sputum Nasal Tracheal Aspirate Sputum Culture Pending Resulted Procedures cardiac ablation 08/13/2017 Patient/Family Conference Present at Family Conference: Family Conference Time (mins): 35 Family Conference Location: Telephone Issues Discussed: * Palliative care role, purpose, approach * Additional medical, psychosocial, and spiritual history * Patients general health, functional status, and cognitive changes in the months leading up to the current hospitalization * Patient/family understanding of the current medical problems * Patient/family understanding of prognosis * Patients goals of care as best understood from advance directives and/or conversations and/or values * Current medical treatment options and benefits/burdens of those options * Likely scenarios comparing ongoing aggressive care with a transition to comfort measures only * Questions answered to the best of my ability * Palliative care contact information provided Assessment and Plan Disease Oriented Problem List: (1) Atrial fibrillation with RVR Comment: underwent ablation (2) Compression fracture (3) Encephalopathy, metabolic (4) AAA (abdominal aortic aneurysm) Symptom Scale: (1) Pain 0-10 Scale: Unable to quantify (2) Anxiety 0-10 Scale: Unable to quantify Pertinent Non-Medical Issues Psychosocial: and 2 sons One in [place], one in [place] Spiritual:Zoroastrianism Legal: Has living will, but does not know where that is. Ethical issues impacting care:none Important Contacts Abdelrahman Romo () [phone] cell [phone] home phone Prognosis Prognosis is guarded. At risk for multiple hospitalizations, sudden decline. Code Status: Alternative Code Plan == Capacity- currently patient does not have capacity to make medical decision. confused. This may be temporary and she may regain. == Health care decision maker- pt does have a living will, but patient's spouse does not know where it is at. Under [employer], pt's spouse / Abdelrahman Romo is the health care surrogate. == symptoms: Anxiety- from confusion. encephlopathy likely is multifactorial, in new surroundings, and medical, just had procedure/ and a. fib. no further med recs at this point. hopefully pt can regain capacity. pain- has history of chronic pain/ compression fracture, but currently denies pain. Prn ultram available == goals of Treatment (Advance care planning >30 min). Spoke with : Plan is rehab code status is: no intubation. does not even want bipap should she get into another respiratory distress unsure about chest compression/acls/ shock- he is leaning towards a full DNR, he is amenable for me to call gameplay programmer on his perspective. == Palliative care will follow up to review goals of care and make recommendation for symptom management. Thank you for the opportunity to participate in the care of Ms. Romo. Attestation To help prompt me to consider important information that might be impacting today's encounter and assessment, information from prior notes written by myself or my colleagues may have been "brought forward" into today's note. My signature on this note, however, is an attestation that I personally performed the exam, history, and/or decision-making noted today, and, unless otherwise indicated, the interactions with patient, family, and staff as well as the review of records all occurred today. I also attest that the listed assessment and stated plan reflect my best clinical judgment today based on the combination of historical information, prior notes, and today's exam/ interactions. When time spent is documented, it refers only to time spent today by the signer, or if indicated, combined time spent today by collaborating physician/nurse practitioner. Jad Alvarenga MD August 14, 2017 11:34
[2017-08-14 12:02] LABS: HEMATOCRIT 36.9 % (35.0-46.0); HEMOGLOBIN 12.1 GM/DL (11.6-15.3); MEAN CELL VOLUME 90.2 FL (80.0-100.0); MEAN CORPUSCULAR HEMOGLOBIN 29.7 PG (27.0-34.0); MEAN CORPUSCULAR HGB CONC 32.9 % (32.0-36.0); MEAN PLATELET VOLUME 8.1 FL (7.0-11.0); PLATELET COUNT 381 TH/MM3 (150-450); RED BLOOD COUNT 4.09 MIL/MM3 (4.00-5.30); RED CELL DISTRIBUTION WIDTH 15.8 % (11.6-17.2); WHITE BLOOD COUNT 20.6 TH/MM3 (4.0-11.0)
[2017-08-14 12:45] LABS: BICARBONATE 32.8 MEQ/L (21.0-32.0); CALCIUM 6.7 MG/DL (8.5-10.1); CREATININE 0.96 MG/DL (0.50-1.00)
[2017-08-14 13:03] LABS: CALCIUM-PROTEIN CORRECTED 7.2 MG/DL (8.5-10.1)
[2017-08-14] MEDS: POTASSIUM CHLOR 20 MEQ PREMIX 100 ML IV PRN ×3 (13:09→18:39)
[2017-08-15] VITALS (14 sets, daily range): BP systolic 133–168; BP diastolic 56–87; PULSE 68–80; RESP 16–33; TEMP 98.3–100; O2SAT 77–94
[2017-08-15] MEDS: RESP: LEVALBUTEROL HYDROCHLORIDE 1.25 MG/3 ML NEB (PRN) NEB (03:19)
[2017-08-15 03:39] LABS: HEMATOCRIT 36.3 % (35.0-46.0); HEMOGLOBIN 11.9 GM/DL (11.6-15.3); MEAN CELL VOLUME 89.9 FL (80.0-100.0); MEAN CORPUSCULAR HEMOGLOBIN 29.4 PG (27.0-34.0); MEAN CORPUSCULAR HGB CONC 32.7 % (32.0-36.0); MEAN PLATELET VOLUME 7.9 FL (7.0-11.0); PLATELET COUNT 354 TH/MM3 (150-450); RED BLOOD COUNT 4.03 MIL/MM3 (4.00-5.30); RED CELL DISTRIBUTION WIDTH 15.7 % (11.6-17.2); WHITE BLOOD COUNT 22.5 TH/MM3 (4.0-11.0)
[2017-08-15 04:09] LABS: BICARBONATE 38.3 MEQ/L (21.0-32.0); CALCIUM 6.6 MG/DL (8.5-10.1); CREATININE 0.79 MG/DL (0.50-1.00)
[2017-08-15 04:22] LABS: TOTAL PROTEIN 5.9 GM/DL (6.4-8.2)
[2017-08-15 04:25] LABS: CALCIUM-PROTEIN CORRECTED 7.2 MG/DL (8.5-10.1)
[2017-08-15] MEDS: POTASSIUM CHLOR 20 MEQ PREMIX 100 ML IV PRN ×5 (04:58→23:04)
[2017-08-15] MEDS ORDERED: CALCIUM GLUCONATE INJ 2 GM in DEXTROSE 5% IN WATER 100ML INJ 100 ML IV ONE ×2 (05:30)
[2017-08-15] MEDS: LEVOTHYROXINE SODIUM 88 MCG TAB PO SCH (05:38)
--- NOTE | 2017-08-15 07:38 | HHI.PR ---
Subjective Remarks with some sob. on oxygen mask; desaturates easily. has occasional cough. no fever. no chest pain. d/w the RN at the bedside. Objective Vitals Vital Signs Date Time Temp Pulse Resp B/P (MAP) Pulse Ox O2 Delivery O2 Flow Rate FiO2 08/15/17 06:00 68 08/15/17 04:00 77 08/15/17 04:00 98.4 77 25 146/65 (92) 92 08/15/17 02:00 68 08/15/17 00:00 76 08/15/17 00:00 98.6 76 28 146/65 (92) 93 08/14/17 22:00 73 08/14/17 20:45 95 Non-Rebreather 15.00 08/14/17 20:00 98.4 80 26 148/66 (93) 89 08/14/17 20:00 93 Non-Rebreather 15.00 08/14/17 20:00 80 08/14/17 18:00 80 08/14/17 18:00 98 Non-Rebreather 15.00 08/14/17 17:00 66 Venturi Mask 50 08/14/17 17:00 88 Venturi Mask 6.00 50 08/14/17 16:00 75 08/14/17 16:00 98.8 75 31 152/67 (95) 92 08/14/17 14:00 79 25 126/57 (80) 91 08/14/17 13:00 86 29 144/65 (91) 90 08/14/17 12:00 98.0 79 17 141/63 (89) 92 08/14/17 12:00 79 08/14/17 11:00 75 26 141/64 (89) 92 08/14/17 10:20 93 Nasal Cannula 6.00 08/14/17 10:00 84 27 139/60 (86) 88 08/14/17 10:00 84 08/14/17 10:00 88 Nasal Cannula 6.00 08/14/17 09:00 78 20 124/55 (78) 87 08/14/17 08:35 96 Nasal Cannula 4.00 08/14/17 08:00 76 08/14/17 08:00 98.8 76 26 127/58 (81) 95 I/O 08/14/17 08/14/17 08/14/17 08/15/17 5/24/18 5/24/18 07:00 15:00 23:00 07:00 15:00 23:00 Intake Total 350 ml 550 ml 120 ml 100 ml Output Total 1800 ml 1875 ml 1700 ml Balance -1450 ml -1325 ml -1580 ml 100 ml Intake Oral 40 ml 250 ml 0 ml IV Total 310 ml 300 ml 120 ml 100 ml Output Urine Total 1800 ml 1875 ml 1700 ml Stool Total 0 ml # Bowel Movements 0 1 Result Diagram: 08/15/17 0320 08/15/17 0320 Imaging Last Impressions Chest X-Ray 08/13/17 0000 Signed Impressions: CONCLUSION: 1. Abnormal placement of endotracheal tube with its tip at the thoracic inlet. 2. Diffuse opacity throughout the lungs suggesting bilateral fluid accumulatio n. 3. Left lower lobe consolidating airspace disease. Head CT 08/09/17 1639 Signed Impressions: Service Date/Time: Wednesday, August 09, 2017 17:52 - CONCLUSION: No acute disease. Abdelrahman Leary MD Head CTA 08/09/17 1624 Signed Impressions: Service Date/Time: Wednesday, August 09, 2017 17:52 - CONCLUSION: Mild fusiform dilatation of the cavernous portion of the internal carotid artery on the left. The more distal flow is normal. Abdelrahman Leary MD Neck CTA 08/09/17 0000 Signed Impressions: Service Date/Time: Wednesday, August 09, 2017 17:52 - CONCLUSION: No significant stenosis is seen. Abdelrahman Leary MD Abdomen/Pelvis CT 08/09/17 0000 Signed Impressions: Service Date/Time: Wednesday, August 09, 2017 22:20 - CONCLUSION: 1. Moderate right pleural effusion and mild left pleural effusion with accompanying atelectasis. 2. Mild amount of free fluid in the lower pelvic peritoneal cavity/cul-de-sac. 3. Edema seen throughout the subcutaneous tissues likely from anasarca. 4. Bladder diverticulum. 5. Contrast in the bladder and kidneys from prior administration. Abdelrahman Leary MD Abdomen X-Ray 08/09/17 0000 Signed Impressions: Service Date/Time: Wednesday, August 09, 2017 20:35 - CONCLUSION: 1. Mild nonspecific colonic dilatation. 2. Status post vertebroplasty of L2. 3. 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 4. 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 Abdelrahman Leary MD Objective Remarks GENERAL: elderly female with some sob-on oxygen mask CARDIOVASCULAR: Regular rate and regular rhythm without murmurs, gallops, or rubs. RESPIRATORY: diminished air entry in bases GASTROINTESTINAL: Abdomen soft, non-tender, nondistended. Normal, active bowel sounds MUSCULOSKELETAL: Extremities without clubbing, cyanosis, or edema. NEURO: Alert & Oriented x4 to person, place, time, situation. Moves all ext x4 Procedures REASON FOR PROCEDURE Central venous access 5- PROCEDURE PERFORMED Central line placement: RIJ central line placement CONSENT Informed consent for procedure was obtained from . The risks and benefits of the procedure were discussed to include but limited to bleeding, clot formation, infection, and even . ANESTHESIA Local injection of 1% Lidocaine DESCRIPTION OF THE PROCEDURE The patient was placed in supine, mild Trendelenburg position. The area was exposed and cleansed with ChloraPrep, times two. Large sterile drape was used to cover the patient, with the site exposed, under sterile conditions including cap, face mask, sterile gown, and sterile gloves. On single attempt, the introducer needle was inserted with negative pressure in syringe and venous flash was obtained. The guide wire was then advanced without any restriction and the needle was removed. The dilator was used without any complications. Using Seldinger technique the 20 cm 7F trip[le lumen catheter was advanced over the guide wire to a depth of 17 centimeters. The guide wire was removed. All ports were aspirated with dark venous blood return and flushed easily with sterile saline. All ports were capped. Antibiotic disc was placed around central line at puncture site. The central line was secured to the skin with two interrupted 2.0 silk sutures. The area was bandaged with sterile see- through central line bandage. RADIOLOGICAL DATA Ultrasound guidance was used to locate RIJ. Doppler/color flow was used to confirm venous flow. COMPLICATIONS: No apparent complications ESTIMATED BLOOD LOSS: Less than 1 cc. Desi Quick MD August 10, 2017 05:17 <Electronically signed by Desi Quick MD> 08/10/17 0517 PATIENT PULLED LINE EARLY THIS MORNING ALREADY HAD NO ACCESS FOR LABS ETC Medications and IVs Inpatient Medications Acetaminophen (Tylenol) 650 mg Q6H PRN PO FEVER >101F; Start 08/06/17 at 17:30 Acetaminophen/ Hydrocodone Bitart ([place] 5-325 Mg) 1 tab Q6H PRN PO PAIN 6-10 Last administered on 08/08/17at 02:44; Start 08/07/17 at 12:30 Albuterol Sulfate (Albuterol Neb) 2.5 mg Q2HR NEB PRN INH SOB/WHEEZING; Start 08/06/17 at 17:30; Status Future Hold Amiodarone HCl (Cordarone) 400 mg Q12HR PO Last administered on 08/12/17at 08:23 ; Start 08/07/17 at 21:00; Stop 08/12/17 at 20:59; Status DC Apixaban (Eliquis) 5 mg BID PO Last administered on 08/14/17at 21:09; Start at 09:30 Atropine Sulfate (Atropine Inj) 0.5 mg UNSCH PRN IV PUSH VAGAL REPONSE; Start 08/13/17 at 09:45 Bacitracin (Bacitracin Oint Packet) 0.9 gm ONCE ONCE TOP ; Start 08/13/17 at 09 :45; Stop 08/13/17 at 10:03; Status DC Bisacodyl (Dulcolax Supp) 10 mg DAILY PRN RECTAL SEVERE CONSITIPATION Last administered on 08/14/17at 11:09; Start 08/06/17 at 17:30 Calcium Chloride 1 gm/Sodium Chloride 110 ml @ 110 mls/hr ONCE ONCE IV Last administered on 08/09/17at 11:19; Start 08/09/17 at 11:00; Stop 08/09/17 at 11:59 ; Status DC Calcium Chloride 2 gm/Dextrose 120 ml @ 120 mls/hr ONCE ONCE IV ; Start at 12:30; Stop 08/13/17 at 12:44; Status DC Calcium Gluconate 2 gm/Dextrose 120 ml @ 120 mls/hr ONCE ONCE IV Last administered on 08/15/17at 05:17; Start 08/15/17 at 05:30; Stop 08/15/17 at 06:29 ; Status DC Chlorhexidine Gluconate (Peridex 0.12% Liq) 15 ml BID@08,20 MT Last administered on 08/13/17at 21:47; Start 08/13/17 at 20:00 Colesevelam HCl (Welchol) 625 mg TID PO Last administered on 08/11/17at 18:41; Start 08/06/17 at 18:00 Dexmedetomidine HCl 200 mcg/ Sodium Chloride 52 ml @ 3.01 mls/hr TITRATE PRN IV SEDATION Last administered on 08/06/17at 23:36; Start 08/06/17 at 23:30; Stop 08/10/17 at 05:44; Status DC Dextrose/Sodium Chloride 500 ml @ 500 mls/hr BOLUS ONCE IV Last administered on 08/09/17at 20:00; Start 08/09/17 at 20:00; Stop 08/09/17 at 20:59; Status DC Digoxin (Lanoxin Inj) 0.25 mg NOW ONCE IV PUSH Last administered on 08/10/17at 05:35; Start 08/10/17 at 05:15; Stop 08/10/17 at 05:16; Status DC Diltiazem HCl (Cardizem Cd) 180 mg DAILY PO Last administered on 08/14/17at 08: 14; Start 08/13/17 at 13:00 Diltiazem HCl (Cardizem Inj) 14 mg BOLUS ONCE IV PUSH Last administered on at 19:25; Start 08/06/17 at 19:30; Stop 08/06/17 at 19:31; Status DC Diltiazem HCl (Cardizem) 60 mg STAT ONCE PO Last administered on 08/07/17at 08: 25; Start 08/07/17 at 08:15; Stop 08/07/17 at 08:16; Status DC Diltiazem HCl 125 mg/Sodium Chloride 125 ml @ 5 mls/hr TITRATE PRN IV tachycardia Last administered on 08/06/17at 19:21; Start 08/06/17 at 18:45; Stop 08/13/17 at 09:46; Status DC Docusate Sodium (Colace) 100 mg BID PO Last administered on 08/14/17at 21:08; Start 08/10/17 at 09:00 Esmolol HCl/ Sodium Chloride 250 ml @ 17.55 mls/ hr TITRATE PRN IV Blood Pressure Management Last administered on 08/13/17at 07:04; Start 08/07/17 at 08: 00; Stop 08/14/17 at 11:03; Status DC Famotidine (Pepcid) 10 mg BID PO Last administered on 08/14/17at 21:09; Start at 21:00 Flecainide Acetate (Tambocor) 100 mg Q12HR PO Last administered on 08/14/17at 21 :08; Start 08/13/17 at 21:00 Furosemide (Lasix Inj) 40 mg BID@,18 IV PUSH Last administered on 08/14/17at 17:12; Start 08/13/17 at 12:30 Furosemide (Lasix) 40 mg DAILY PO Last administered on 08/12/17at 08:25; Start 08/07/17 at 09:00; Stop 08/13/17 at 12:21; Status DC Lactulose (Lactulose Liq) 30 ml DAILY PRN PO SEVERE CONSITIPATION; Start at 17:30 Levalbuterol HCl (Xopenex Neb) 1.25 mg Q2HR NEB PRN NEB SEE LABEL COMMENTS Last administered on 08/15/17at 03:19; Start 08/10/17 at 00:15 Levothyroxine Sodium (Synthroid) 88 mcg DAILY@0600 PO Last administered on 08/15at 05:38; Start 08/07/17 at 06:00 Lidocaine HCl (Xylocaine 1% Inj (50 ml)) 10 ml UNSCH PRN INFIL SHEATH REMOVAL; Start 08/13/17 at 09:45; Stop 08/14/17 at 09:44; Status DC Lisinopril (Prinivil) 10 mg DAILY PO Last administered on 08/09/17at 10:16; Start 08/07/17 at 09:00; Status Future Hold Lorazepam (Ativan Inj) 0.5 mg UNSCH PRN IV PUSH ANXIETY Last administered on at 19:45; Start 08/13/17 at 09:45; Stop 08/14/17 at 09:44; Status DC Magnesium Hydroxide (Milk Of Magnesia Liq) 30 ml Q12H PRN PO Mild constipation Last administered on 08/14/17at 11:09; Start 08/06/17 at 17:30 Magnesium Oxide (Mag-Ox) 800 mg UNSCH PRN PO For Magnesium 1.2 - 1.6 mg/dL; Start 08/12/17 at 09:45 Magnesium Sulfate 2 gm/Sodium Chloride 100 ml @ 50 mls/hr UNSCH PRN IV For Magnesium 1.2 - 1.6 mg/dL; Start 08/12/17 at 09:45 Magnesium Sulfate 4 gm/Sodium Chloride 100 ml @ 50 mls/hr UNSCH PRN IV For Magnesium 0.9 - 1.1 mg/dL; Start 08/12/17 at 09:45 Metoclopramide HCl (Reglan Inj) 10 mg Q4H PRN IV PUSH NAUSEA; Start 08/13/17 at 09:45 Metoprolol Tartrate (Lopressor Inj) 2.5 mg Q4H PRN IV PUSH HR>105 Last administered on 08/12/17at 16:54; Start 08/07/17 at 15:30 Miscellaneous Information ([facility] [place] [facility] Information) ALL NURSING DEPARTME... UNSCH PRN .XX SEE LABEL COMMENTS; Start 08/13/17 at 10:37; Stop 08/14/17 at 10: 36; Status DC Morphine Sulfate (Morphine Inj) 0.5 mg ONCE ONCE IV PUSH Last administered on 08/07/17at 13:19; Start 08/07/17 at 12:30; Stop 08/07/17 at 12:31; Status DC Nicardipine HCl 25 mg/Sodium Chloride 260 ml @ 52 mls/hr TITRATE PRN IV Blood Pressure Management Last administered on 08/14/17at 05:33; Start 08/13/17 at 17: 45; Stop 08/14/17 at 11:03; Status DC Ondansetron HCl (Zofran Odt) 4 mg Q4H PRN PO NAUSEA; Start 08/13/17 at 09:45 Ondansetron HCl (Zofran Inj) 4 mg Q6H PRN IV PUSH NAUSEA OR VOMITING; Start at 17:30; Stop 08/06/17 at 17:49; Status DC Phenylephrine HCl 40 mg/Dextrose 500 ml @ 30 mls/hr TITRATE PRN IV SBP < 90; Start 08/13/17 at 11:15; Stop 08/14/17 at 11:03; Status DC Potassium Phosphate (K-Phos) 2,000 mg UNSCH PRN PO/TUBE SEE LABEL COMMENTS; Start 08/12/17 at 09:45 Potassium Phosphate 30 mmol/ Sodium Chloride 260 ml @ 42 mls/hr UNSCH PRN IV SEE LABEL COMMENTS Last administered on 08/13/17at 04:50; Start 08/12/17 at 09:45 Potassium Bicarb/ Potassium Chloride (K-Lyte Cl Eff) 50 meq ONCE ONCE PO Last administered on 08/13/17at 12:59; Start 08/13/17 at 12:30; Stop 08/13/17 at 12:44; Status DC Potassium Chloride 100 ml @ 50 mls/hr Q2H PRN IV For Potassium 3.3 - 3.5 mEq/L ; Start 08/12/17 at 09:45 Propofol 100 ml @ 2.034 mls/ hr TITRATE PRN IV SEDATION; Start 08/13/17 at 15: 30; Stop 08/14/17 at 11:03; Status DC Senna/Docusate Sodium (Beatrice-Colace) 1 tab BID PO Last administered on at 21:54; Start 08/06/17 at 21:00; Stop 08/09/17 at 22:55; Status DC Sennosides (Senokot) 17.2 mg Q12H PRN PO Moderate constipation Last administered on 08/14/17at 04:11; Start 08/06/17 at 17:30 Sodium Bicarbonate (Sodium Bicarbonate 8.4% Inj) 50 meq ONCE ONCE IV PUSH Last administered on 08/10/17at 05:34; Start 08/10/17 at 05:30; Stop 08/10/17 at 05:31; Status DC Sodium Chloride 250 ml @ 500 mls/hr ONCE PRN IV VAGAL REPONSE; Start 08/13/17 at 09:45; Stop 08/14/17 at 09:44; Status DC Sodium Chloride (NS Flush) 2 ml BID IV FLUSH Last administered on 08/14/17at 21: 00; Start 08/06/17 at 21:00 Sodium Phosphate 30 mmol/Sodium Chloride 250 ml @ 42 mls/hr UNSCH PRN IV For Phosphorus < 2.5 mg/dL; Start 08/12/17 at 09:45 Terbutaline Sulfate (Brethine Inj) 1 mg UNSCH PRN SQ FOR EXTRAVASATION PROTOCOL ; Start 08/13/17 at 11:15; Stop 08/14/17 at 11:03; Status DC Tramadol HCl (Ultram) 50 mg Q6H PRN PO PAIN SCALE 1 TO 10 Last administered on 08/08/17at 07:54; Start 08/06/17 at 17:30 Vasopressin 40 units/Dextrose 100 ml @ 1.5 mls/hr Q24H PRN IV SBP < 90; Start 08/13/17 at 11:15; Stop 08/14/17 at 11:03; Status DC A/P Assessment and Plan Acute hypoxemic respiratory failure- leukocytosis -s/p intubation/extubation -desaturates easily- afebrile. -Titrate FiO2 to keep saturation more than 90% - aggressive pulmonary toilet. i.s., ez-pap, acapella. -repeat CXR today and consult pulmonary. Acute exacerbation of systolic heart failure Atrial fibrillation/flutter s/p EP ablation -Patient is status post successful ablation of atrial fibrillation/flutter -Continue Cardizem CD, flecainide, Eliquis -Received IV Lasix 40 mg 1, continue IV Lasix 40 every 12, hold p.o. 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 famotidine. -ST following. Hyponatremia now resolved Hypokalemia hypocalcemia -Chronic hyponatremia, now corrected -Monitor trend -Aggressive electrolyte replacement -Hypothyroidism Continue home dose levothyroxine 88 mcg daily acute encephalopathy -seems to be improving. -evaluated by neurology. DVT GI prophylaxis -Lexx's and SCDs -Eliquis palliative care following. will monitor in ICU closely. Redd Nick MD August 15, 2017 07:38
[2017-08-15] MEDS: FLECAINIDE ACETATE 100 MG TAB PO SCH ×2 (07:49→20:25)
[2017-08-15] MEDS: DILTIAZEM-CD 180 MG CAP ER PO SCH (07:49)
[2017-08-15] MEDS: APIXABAN 5 MG TABLET PO SCH ×2 (07:50→20:24)
[2017-08-15] MEDS: FAMOTIDINE 20 MG TAB PO SCH ×2 (07:50→20:25)
[2017-08-15] MEDS: COLESEVELAM HCL 625 MG TAB PO SCH ×3 (07:50→17:08)
[2017-08-15] MEDS: FUROSEMIDE 40 MG/4 ML VIAL IV PUSH SCH ×2 (07:50→17:08)
[2017-08-15] MEDS: SODIUM CHLORIDE 0.9% FLUSH 10 ML FLUSH IV FLUSH SCH ×2 (07:51→20:25)
[2017-08-15] MEDS: DOCUSATE SODIUM 100 MG CAP PO SCH ×2 (07:51→20:25)
[2017-08-15] MEDS: CHLORHEXIDINE 0.12% (ORAL KIT) 15 ML CUP MT SCH ×2 (07:51→20:00)
[2017-08-15] MEDS: SODIUM CHLORIDE 0.9% FLUSH 10 ML FLUSH IV FLUSH PRN (07:51)
--- NOTE | 2017-08-15 08:37 | RADRPT ---
EXAM DATE: 08/15/2017 8:29 AM EDT AGE/SEX: 86 years / Female INDICATIONS: Short of breath, coughing CLINICAL DATA: This is the patient's subsequent encounter. Patient reports that signs and symptoms h ave been present for 1 day and indicates a pain score of Nonresponsive. MEDICAL/SURGICAL HISTORY: . atrial flutter Kyphoplasty. COMPARISON: [facility] [place], CHEST SINGLE AP, 08/13/2017. . FINDINGS: Increasing opacity in the right base is characteristic of redistributing pleural effusion compared to the prior study. Bibasilar airspace disease is still suspected. There is mild central congestion. Endotracheal tube has been removed. Heart remains mildly enlarged. CONCLUSION: Persistent bilateral pleural effusions with underlying airspace disease Status post extubation Electronically signed by: Sarthak Chapman MD 08/15/2017 8:36 AM EDT
--- NOTE | 2017-08-15 11:05 | HHI.HCPN ---
Reason for visit a. To assist with evaluation and management of symptoms including:dyspnea, anxiety b. To assist medical decision maker(s) with: better understanding of current medical conditions; weighing benefits/burdens of medical treatment options; making medical treatment decisions. Subjective/Interval History Patient remains confused. She thinks her is here in the hospital, when patient is at home. Patient however does remember she is in [place] and remember the names of her and children. She currently is on non-rebreather, and chest X-ray shows pleural effusion. She has said to the nurse prior to my arrival that she wanted hospice, which I have not reviewed with patient prior. She is anxious and dyspneic, she cannot rate her symptoms; remains confused. I Family/friend interactions I spoke with patient's spouse and updated him on patient's condition. I also discussed what cardiology has said. Dr. Pickard said patient given she just had the procedure, probably would need a few days of more intensivie support. Being Full code or at the very least Bipap, and acls/shock/ is not unreasonable. This was conveyed to patient's as well. I offered patient's to change back to Full Code status. does know that patient has asked for hospice, but I told him, patient is confused and I do not feel he has capacity to make medical decisions. Goals of treatment is as follows: == made it clear he does not want patient to have prolong suffering if condition is not salvagable. == Despite the offer of intubation, he does not want to put her through another intubation, but is amenable to bipap. == He is amenable acls/ shock/ compression. == he is amenable to goals to be aggressive, but no reintubation. Advance Directives Living Will: Completed, but not made available ( normally takes care of that, does not know where that is.) Objective Vital Signs Date Time Temp Pulse Resp B/P (MAP) Pulse Ox O2 Delivery O2 Flow Rate FiO2 08/15/17 08:00 98.7 78 33 168/87 (114) 87 08/15/17 08:00 87 Non-Rebreather 15.00 08/15/17 06:00 68 08/15/17 04:00 77 08/15/17 04:00 98.4 77 25 146/65 (92) 92 08/15/17 02:00 68 08/15/17 00:00 76 08/15/17 00:00 98.6 76 28 146/65 (92) 93 08/14/17 22:00 73 08/14/17 20:45 95 Non-Rebreather 15.00 08/14/17 20:00 98.4 80 26 148/66 (93) 89 08/14/17 20:00 93 Non-Rebreather 15.00 08/14/17 20:00 80 08/14/17 18:00 80 08/14/17 18:00 98 Non-Rebreather 15.00 08/14/17 17:00 66 Venturi Mask 50 08/14/17 17:00 88 Venturi Mask 6.00 50 08/14/17 16:00 75 08/14/17 16:00 98.8 75 31 152/67 (95) 92 08/14/17 14:00 79 25 126/57 (80) 91 08/14/17 13:00 86 29 144/65 (91) 90 08/14/17 12:00 98.0 79 17 141/63 (89) 92 08/14/17 12:00 79 08/14/17 11:00 75 26 141/64 (89) 92 Intake & Output 08/15/17 08/15/17 06:59 18:59 Intake Total 220 ml 100 ml Output Total 1700 ml Balance -1480 ml 100 ml Intake Oral 0 ml IV Total 220 ml 100 ml Output Urine Total 1700 ml # Bowel Movements 1 Physical Exam CONSTITUTIONAL/GENERAL: This is a fatigued elderly female, somewhat fatigued TUBES/LINES/DRAINS:no SKIN: No jaundice, rashes, or lesions. . No wounds seen anteriorly. Skin temperature appropriate. Not diaphoretic. HEAD: Atraumatic. Normocephalic. EYES: Pupils equal and round and reactive. Extraocular motions intact. No scleral icterus. No injection or drainage. Fundi not examined. ENT: Hearing grossly normal. Nose without bleeding or purulent drainage. Throat without visible erythema, exudates, masses, or lesions. NECK: Trachea midline. Supple, nontender. No palpable thyroid enlargement or nodularity. CARDIOVASCULAR: Regular rate and rhythm without murmurs, gallops, or rubs. No JVD. Peripheral pulses symmetric. RESPIRATORY/CHEST: Symmetric, unlabored respirations. Clear to auscultation. Breath sounds equal bilaterally. No wheezes, rales, or rhonchi. GASTROINTESTINAL: Abdomen soft, non-tender, nondistended. No hepato-splenomegaly , or palpable masses. No guarding. Bowel sounds present. GENITOURINARY: Without palpable bladder distension. Strong catheter in place. MUSCULOSKELETAL: Extremities without clubbing, cyanosis. 2+ edema No joint tenderness or effusion noted. No calf tenderness. No mottling or clubbing. LYMPHATICS: No palpable cervical or supraclavicular adenopathy. NEUROLOGICAL: Awake and alert. confused Moves all extremities. PSYCHIATRIC: No obvious anxiety/depression. no apparent hallucinations or other psychotic thought process. Diagnostic Tests Laboratory Laboratory Tests Test 08/12/17 11:35 08/13/17 00:00 08/13/17 05:00 08/13/17 11:51 Phosphorus Level 1.2 MG/DL (2.5-4.9) 1.8 MG/DL (2.5-4.9) 2.0 MG/DL (2.5-4.9) Potassium Level 2.6 MEQ/L (3.5-5.1) 3.3 MEQ/L (3.5-5.1) White Blood Count 14.4 TH/MM3 (4.0-11.0) Red Blood Count 3.97 MIL/MM3 (4.00-5.30) Hemoglobin 11.7 GM/DL (11.6-15.3) Hematocrit 35.6 % (35.0-46.0) Mean Corpuscular Volume 89.8 FL (80.0-100.0) Mean Corpuscular Hemoglobin 29.5 PG (27.0-34.0) Mean Corpuscular Hemoglobin Concent 32.9 % (32.0-36.0) Red Cell Distribution Width 15.7 % (11.6-17.2) Platelet Count 388 TH/MM3 (150-450) Mean Platelet Volume 7.8 FL (7.0-11.0) Neutrophils (%) (Auto) 86.2 % (16.0-70.0) Lymphocytes (%) (Auto) 6.0 % (9.0-44.0) Monocytes (%) (Auto) 7.6 % (0.0-8.0) Eosinophils (%) (Auto) 0.0 % (0.0-4.0) Basophils (%) (Auto) 0.2 % (0.0-2.0) Neutrophils # (Auto) 12.4 TH/MM3 (1.8-7.7) Lymphocytes # (Auto) 0.9 TH/MM3 (1.0-4.8) Monocytes # (Auto) 1.1 TH/MM3 (0-0.9) Eosinophils # (Auto) 0.0 TH/MM3 (0-0.4) Basophils # (Auto) 0.0 TH/MM3 (0-0.2) CBC Comment DIFF FINAL Differential Comment Blood Urea Nitrogen 13 MG/DL (7-18) Creatinine 0.76 MG/DL (0.50-1.00) Random Glucose 104 MG/DL (74-106) Total Protein 5.4 GM/DL (6.4-8.2) Albumin 2.6 GM/DL (3.4-5.0) Calcium Level 6.3 MG/DL (8.5-10.1) Magnesium Level 1.8 MG/DL (1.5-2.5) Alkaline Phosphatase 83 U/L (45-117) Aspartate Amino Transf (AST/SGOT) 26 U/L (15-37) Alanine Aminotransferase (ALT/SGPT) 43 U/L (10-53) Total Bilirubin 0.3 MG/DL (0.2-1.0) Sodium Level 143 MEQ/L (136-145) Chloride Level 102 MEQ/L (98-107) Carbon Dioxide Level 26.6 MEQ/L (21.0-32.0) Anion Gap 14 MEQ/L (5-15) Estimat Glomerular Filtration Rate 72 ML/MIN (>89) Protein Corrected Calcium 7.1 MG/DL (8.5-10.1) Blood Gas Puncture Site RT RADIAL Blood Gas Patient Temperature 98.6 Blood Gas HCO3 23 mmol/L (22-26) Blood Gas Base Excess 0.2 mmol/L (-2-2) Blood Gas Oxygen Saturation 98 % (90-100) Arterial Blood pH 7.50 (7.380-7.420) Arterial Blood Partial Pressure CO2 30 mmHg (38-42) Arterial Blood Partial Pressure O2 186 mmHg (61-120) Arterial Blood Oxygen Content 16.9 Vol % (12.0-20.0) Arterial Blood Carboxyhemoglobin 0.8 % (0-4) Arterial Blood Methemoglobin 1.1 % (0-2) Blood Gas Hemoglobin 12.0 G/DL (12.0-16.0) Oxygen Delivery Device VENTILATOR Blood Gas Ventilator Setting IMV16/450/PEEP7/PS10 Blood Gas Inspired Oxygen 60 % Test 08/14/17 05:08 08/14/17 11:37 08/15/17 03:20 Prothrombin Time 13.3 SEC (9.8-11.6) Prothromb Time International Ratio 1.3 RATIO Activated Partial Thromboplast Time 27.9 SEC (24.3-30.1) White Blood Count 20.6 TH/MM3 (4.0-11.0) 22.5 TH/MM3 (4.0-11.0) Red Blood Count 4.09 MIL/MM3 (4.00-5.30) 4.03 MIL/MM3 (4.00-5.30) Hemoglobin 12.1 GM/DL (11.6-15.3) 11.9 GM/DL (11.6-15.3) Hematocrit 36.9 % (35.0-46.0) 36.3 % (35.0-46.0) Mean Corpuscular Volume 90.2 FL (80.0-100.0) 89.9 FL (80.0-100.0) Mean Corpuscular Hemoglobin 29.7 PG (27.0-34.0) 29.4 PG (27.0-34.0) Mean Corpuscular Hemoglobin Concent 32.9 % (32.0-36.0) 32.7 % (32.0-36.0) Red Cell Distribution Width 15.8 % (11.6-17.2) 15.7 % (11.6-17.2) Platelet Count 381 TH/MM3 (150-450) 354 TH/MM3 (150-450) Mean Platelet Volume 8.1 FL (7.0-11.0) 7.9 FL (7.0-11.0) Blood Urea Nitrogen 18 MG/DL (7-18) 15 MG/DL (7-18) Creatinine 0.96 MG/DL (0.50-1.00) 0.79 MG/DL (0.50-1.00) Random Glucose 124 MG/DL (74-106) 115 MG/DL (74-106) Total Protein 6.0 GM/DL (6.4-8.2) 5.9 GM/DL (6.4-8.2) Calcium Level 6.7 MG/DL (8.5-10.1) 6.6 MG/DL (8.5-10.1) Sodium Level 145 MEQ/L (136-145) 147 MEQ/L (136-145) Potassium Level 2.2 MEQ/L (3.5-5.1) 3.0 MEQ/L (3.5-5.1) Chloride Level 98 MEQ/L (98-107) 100 MEQ/L (98-107) Carbon Dioxide Level 32.8 MEQ/L (21.0-32.0) 38.3 MEQ/L (21.0-32.0) Anion Gap 14 MEQ/L (5-15) 9 MEQ/L (5-15) Estimat Glomerular Filtration Rate 55 ML/MIN (>89) 69 ML/MIN (>89) Protein Corrected Calcium 7.2 MG/DL (8.5-10.1) 7.2 MG/DL (8.5-10.1) Result Diagram: 08/15/17 0320 08/15/17 0320 Microbiology Microbiology Date/Time Source Procedure Growth Status 08/13/17 14:45 Sputum Nasal Tracheal Aspirate Gram Stain - Final Complete 08/13/17 14:45 Sputum Nasal Tracheal Aspirate Sputum Culture - Final HEAVY GROWTH NORMAL RESPIRATORY PABLITO Complete Procedures cardiac ablation 08/13/2017 Assessment and Plan Disease Oriented Problem List: (1) Atrial fibrillation with RVR Comment: underwent ablation (2) Compression fracture (3) Encephalopathy, metabolic (4) AAA (abdominal aortic aneurysm) Symptom Scale: (1) Pain 0-10 Scale: Unable to quantify (2) Anxiety 0-10 Scale: Unable to quantify Pertinent Non-Medical Issues Psychosocial: and 2 sons Spiritual:Buddhism Legal: Has living will, but does not know where that is. Ethical issues impacting care:none Important Contacts Abdelrahman Romo () [phone] cell [phone] home phone Prognosis Prognosis is guarded. At risk for multiple hospitalizations, sudden decline. Code Status: Alternative Code Plan == Capacity- currently patient does not have capacity to make medical decision. Remains confused, she thinks is in the hospital here. She may regain capacity, but for the past few days she has been confuse and have poor memory. == Health care decision maker- pt does have a living will, but patient's spouse does not know where it is at. Under [facility], pt's spouse / Abdelrahman Romo is the health care surrogate. == symptoms: Anxiety- from confusion, dyspnea. encephlopathy likely is multifactorial, in new surroundings, and medical, just had procedure/ and a. fib. no further med recs at this point. hopefully pt can regain capacity. Dyspnea- given goals are still aggressive, but short of reintubation. bipab if requried. == goals of Treatment (Advance care planning >30 min). Spoke with : I spoke with patient's spouse and updated him on patient's condition. Dr. Pickard has said patient given she just had the procedure, probably would need a few days of more intensive support. Being Full code or at the very least Bipap, and acls/shock/ is not unreasonable. This was conveyed to patient's as well. I offered patient's to change back to Full Code status and informed him of Dr. Pickard's recommendation. does know that patient has asked for hospice, but I told him, patient is confused and I do not feel he has capacity to make medical decisions. Goals of treatment is as follows: == made it clear he does not want patient to have prolong suffering if condition is not salvageable. == Despite the offer of intubation if required and to change patient back to Full Code to give better support; he does not want to put her through another intubation, but is amenable to bipap. He was not amenable to it yesterday base on 's known wishes. == He is amenable acls/ shock/ compression. == he is amenable to goals to be aggressive, but no reintubation despite Dr Pickard's recommendation. === Code Status is: Alternative Code: NO reintubation. Yes to bipap, acls/ shock/compression/drugs == Palliative care will follow up to review goals of care and make recommendation for symptom management. Attestation To help prompt me to consider important information that might be impacting today's encounter and assessment, information from prior notes written by myself or my colleagues may have been "brought forward" into today's note. My signature on this note, however, is an attestation that I personally performed the exam, history, and/or decision-making noted today, and, unless otherwise indicated, the interactions with patient, family, and staff as well as the review of records all occurred today. I also attest that the listed assessment and stated plan reflect my best clinical judgment today based on the combination of historical information, prior notes, and today's exam/ interactions. When time spent is documented, it refers only to time spent today by the signer, or if indicated, combined time spent today by collaborating physician/nurse practitioner. Jad Alvarenga MD August 15, 2017 11:05
--- NOTE | 2017-08-15 13:56 | HHI.GIFU ---
Subjective Remarks Patient is awake resting in the bed very weak Wanting to see pictures of the Harrison family, TV on Maintain on 100% nonrebreather but short choppy respirations No nausea no vomiting Objective Vitals I&O Vital Signs Date Time Temp Pulse Resp B/P (MAP) Pulse Ox O2 Delivery O2 Flow Rate FiO2 08/15/17 12:00 100.0 75 25 140/63 (88) 77 08/15/17 08:00 98.7 78 33 168/87 (114) 87 08/15/17 08:00 87 Non-Rebreather 15.00 08/15/17 06:00 68 08/15/17 04:00 77 08/15/17 04:00 98.4 77 25 146/65 (92) 92 08/15/17 02:00 68 08/15/17 00:00 76 08/15/17 00:00 98.6 76 28 146/65 (92) 93 08/14/17 22:00 73 08/14/17 20:45 95 Non-Rebreather 15.00 08/14/17 20:00 98.4 80 26 148/66 (93) 89 08/14/17 20:00 93 Non-Rebreather 15.00 08/14/17 20:00 80 08/14/17 18:00 80 08/14/17 18:00 98 Non-Rebreather 15.00 08/14/17 17:00 66 Venturi Mask 50 08/14/17 17:00 88 Venturi Mask 6.00 50 08/14/17 16:00 75 08/14/17 16:00 98.8 75 31 152/67 (95) 92 08/14/17 14:00 79 25 126/57 (80) 91 I/O 08/14/17 08/14/17 08/14/17 08/15/17 08/15/17 08/15/17 07:00 15:00 23:00 07:00 15:00 23:00 Intake Total 350 ml 550 ml 120 ml 100 ml Output Total 1800 ml 1875 ml 1700 ml Balance -1450 ml -1325 ml -1580 ml 100 ml Intake Oral 40 ml 250 ml 0 ml IV Total 310 ml 300 ml 120 ml 100 ml Output Urine Total 1800 ml 1875 ml 1700 ml Stool Total 0 ml # Bowel Movements 0 1 Laboratory Laboratory Tests Test 08/15/17 03:20 White Blood Count 22.5 Red Blood Count 4.03 Hemoglobin 11.9 Hematocrit 36.3 Mean Corpuscular Volume 89.9 Mean Corpuscular Hemoglobin 29.4 Mean Corpuscular Hemoglobin Concent 32.7 Red Cell Distribution Width 15.7 Platelet Count 354 Mean Platelet Volume 7.9 Blood Urea Nitrogen 15 Creatinine 0.79 Random Glucose 115 Total Protein 5.9 Calcium Level 6.6 Sodium Level 147 Potassium Level 3.0 Chloride Level 100 Carbon Dioxide Level 38.3 Anion Gap 9 Estimat Glomerular Filtration Rate 69 Protein Corrected Calcium 7.2 Date/Time Source Procedure Growth Status 08/06/17 20:25 Blood Peripheral Aerobic Blood Culture - Final NO GROWTH IN 5 DAYS Complete 08/06/17 20:25 Blood Peripheral Anaerobic Blood Culture - Final NO GROWTH IN 5 DAYS Complete 08/13/17 14:45 Sputum Nasal Tracheal Aspirate Gram Stain - Final Complete 08/13/17 14:45 Sputum Nasal Tracheal Aspirate Sputum Culture - Final HEAVY GROWTH NORMAL RESPIRATORY PABLITO Complete 08/06/17 17:45 Urine Catheterized Urine Legionella Antigen - Final PRESUMPTIVE NEGATIVE FOR LEGIONELLA P... Complete 08/06/17 17:45 Urine Catheterized Urine Streptococcus pneumoniae Antigen (M - Final PRESUMPTIVE NEGATIVE FOR STREPTOCOCCU... Complete Imaging Last Impressions Chest X-Ray 08/15/17 0000 Signed Impressions: CONCLUSION: Persistent bilateral pleural effusions with underlying airspace disease Status post extubation Head CT 08/09/17 1639 Signed Impressions: Service Date/Time: Wednesday, August 09, 2017 17:52 - CONCLUSION: No acute disease. Abdelrahman Leary MD Head CTA 08/09/17 1624 Signed Impressions: Service Date/Time: Wednesday, August 09, 2017 17:52 - CONCLUSION: Mild fusiform dilatation of the cavernous portion of the internal carotid artery on the left. The more distal flow is normal. Abdelrahman Leary MD Neck CTA 08/09/17 0000 Signed Impressions: Service Date/Time: Wednesday, August 09, 2017 17:52 - CONCLUSION: No significant stenosis is seen. Abdelrahman Leary MD Abdomen/Pelvis CT 08/09/17 0000 Signed Impressions: Service Date/Time: Wednesday, August 09, 2017 22:20 - CONCLUSION: 1. Moderate right pleural effusion and mild left pleural effusion with accompanying atelectasis. 2. Mild amount of free fluid in the lower pelvic peritoneal cavity/cul-de-sac. 3. Edema seen throughout the subcutaneous tissues likely from anasarca. 4. Bladder diverticulum. 5. Contrast in the bladder and kidneys from prior administration. Abdelrahman Leary MD Abdomen X-Ray 08/09/17 0000 Signed Impressions: Service Date/Time: Wednesday, August 09, 2017 20:35 - CONCLUSION: 1. Mild nonspecific colonic dilatation. 2. Status post vertebroplasty of L2. 3. 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 4. 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 Abdelrahman Leary MD Physical Exam HEENT: Pale, frail, normocephalic; atraumatic; no jaundice. NECK: Neck is supple, thin CHEST: Diminished breath sounds throughout CARDIAC: Heart sounds distant ABDOMEN: Notes generalized mild abdominal pain and into the left lower quadrant , soft, bowel sounds soft EXTREMITIES: No lower extremity edema. SKIN: Thin turgor, no rash; no jaundice. 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
[2017-08-15] MEDS ORDERED: LORazepam 2 MG/ML VIAL IM PRN (19:30)
[2017-08-16] VITALS (25 sets, daily range): BP systolic 120–190; BP diastolic 58–77; PULSE 60–123; RESP 15–55; TEMP 98–99.6; O2SAT 76–98
[2017-08-16] MEDS: POTASSIUM CHLOR 20 MEQ PREMIX 100 ML IV PRN ×3 (01:08→05:09)
[2017-08-16] MEDS: RESP: LEVALBUTEROL HYDROCHLORIDE 1.25 MG/3 ML NEB (PRN) NEB ×3 (04:12→20:13)
[2017-08-16] MEDS: LEVOTHYROXINE SODIUM 88 MCG TAB PO SCH (05:08)
[2017-08-16 06:45] LABS: AUTOMATED NEUTROPHIL # 10.7 TH/MM3 (1.8-7.7); BASOPHIL % 0.1 % (0.0-2.0); EOSINOPHIL # 0.1 TH/MM3 (0-0.4); HEMATOCRIT 34.8 % (35.0-46.0); HEMOGLOBIN 11.3 GM/DL (11.6-15.3); LYMPHOCYTE # 0.7 TH/MM3 (1.0-4.8); MEAN CELL VOLUME 90.5 FL (80.0-100.0); MEAN CORPUSCULAR HEMOGLOBIN 29.3 PG (27.0-34.0); MEAN CORPUSCULAR HGB CONC 32.4 % (32.0-36.0); MEAN PLATELET VOLUME 8.6 FL (7.0-11.0); MONO % 6.9 % (0.0-8.0); MONOCYTE # 0.9 TH/MM3 (0-0.9); PLATELET COUNT 324 TH/MM3 (150-450); RED BLOOD COUNT 3.84 MIL/MM3 (4.00-5.30); RED CELL DISTRIBUTION WIDTH 16.4 % (11.6-17.2); WHITE BLOOD COUNT 12.5 TH/MM3 (4.0-11.0)
[2017-08-16 07:23] LABS: BICARBONATE 39.6 MEQ/L (21.0-32.0); CALCIUM 6.7 MG/DL (8.5-10.1); CREATININE 0.86 MG/DL (0.50-1.00); PHOSPHORUS 0.8 MG/DL (2.5-4.9)
[2017-08-16 07:35] LABS: CALCIUM-PROTEIN CORRECTED 7.7 MG/DL (8.5-10.1); TOTAL PROTEIN 5.2 GM/DL (6.4-8.2)
--- NOTE | 2017-08-16 07:39 | HHI.PR ---
Subjective Remarks f/u; respiratory failure with some sob- on Bipap. no fever. d/w the RN. Objective Vitals Vital Signs Date Time Temp Pulse Resp B/P (MAP) Pulse Ox O2 Delivery O2 Flow Rate FiO2 08/16/17 06:00 63 08/16/17 04:13 97 90 08/16/17 04:00 64 08/16/17 04:00 98.0 64 16 120/59 (79) 98 08/16/17 02:00 64 08/16/17 01:20 95 100 08/16/17 00:00 98.1 67 15 130/58 (82) 89 08/16/17 00:00 67 08/15/17 22:00 74 08/15/17 21:30 94 90 08/15/17 20:00 89 Non-Rebreather 15.00 08/15/17 20:00 98.3 79 16 142/60 (87) 89 08/15/17 20:00 79 08/15/17 17:00 70 08/15/17 17:00 70 28 136/60 (85) 78 08/15/17 16:00 98.5 72 33 164/70 (101) 93 08/15/17 16:00 72 08/15/17 15:00 71 20 138/62 (87) 93 08/15/17 15:00 71 08/15/17 14:00 70 08/15/17 14:00 70 26 133/56 (81) 93 08/15/17 13:00 80 31 155/70 (98) 84 08/15/17 12:00 78 08/15/17 12:00 100.0 75 25 140/63 (88) 77 08/15/17 08:00 98.7 78 33 168/87 (114) 87 08/15/17 08:00 87 Non-Rebreather 15.00 I/O 08/15/17 08/15/17 08/15/17 08/16/17 08/16/17 08/16/17 06:59 14:59 22:59 06:59 14:59 22:59 Intake Total 120 ml 100 ml 300 ml 300 ml Output Total 1700 ml 1550 ml 950 ml Balance -1580 ml 100 ml -1250 ml -650 ml Intake Oral 0 ml 300 ml IV Total 120 ml 100 ml 300 ml Output Urine Total 1700 ml 1550 ml 950 ml # Bowel Movements 1 1 0 Result Diagram: 08/16/17 0542 08/16/17 0542 Imaging Last Impressions Chest X-Ray 08/15/17 0000 Signed Impressions: CONCLUSION: Persistent bilateral pleural effusions with underlying airspace disease Status post extubation Head CT 08/09/17 1639 Signed Impressions: Service Date/Time: Wednesday, August 09, 2017 17:52 - CONCLUSION: No acute disease. Abdelrahman Leary MD Head CTA 08/09/17 1624 Signed Impressions: Service Date/Time: Wednesday, August 09, 2017 17:52 - CONCLUSION: Mild fusiform dilatation of the cavernous portion of the internal carotid artery on the left. The more distal flow is normal. Abdelrahman Leary MD Neck CTA 08/09/17 0000 Signed Impressions: Service Date/Time: Wednesday, August 09, 2017 17:52 - CONCLUSION: No significant stenosis is seen. Abdelrahman Leary MD Abdomen/Pelvis CT 08/09/17 0000 Signed Impressions: Service Date/Time: Wednesday, August 09, 2017 22:20 - CONCLUSION: 1. Moderate right pleural effusion and mild left pleural effusion with accompanying atelectasis. 2. Mild amount of free fluid in the lower pelvic peritoneal cavity/cul-de-sac. 3. Edema seen throughout the subcutaneous tissues likely from anasarca. 4. Bladder diverticulum. 5. Contrast in the bladder and kidneys from prior administration. Abdelrahman Leary MD Abdomen X-Ray 08/09/17 0000 Signed Impressions: Service Date/Time: Wednesday, August 09, 2017 20:35 - CONCLUSION: 1. Mild nonspecific colonic dilatation. 2. Status post vertebroplasty of L2. 3. 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 4. 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 Abdelrahman Leary MD Objective Remarks GENERAL: elderly female with some sob-on oxygen mask CARDIOVASCULAR: Regular rate and regular rhythm without murmurs, gallops, or rubs. RESPIRATORY: diminished air entry in bases GASTROINTESTINAL: Abdomen soft, non-tender, nondistended. Normal, active bowel sounds MUSCULOSKELETAL: Extremities without clubbing, cyanosis, or edema. NEURO: Alert & Oriented x4 to person, place, time, situation. Moves all ext x4 Procedures REASON FOR PROCEDURE Central venous access 5-19 PROCEDURE PERFORMED Central line placement: RIJ central line placement CONSENT Informed consent for procedure was obtained from . The risks and benefits of the procedure were discussed to include but limited to bleeding, clot formation, infection, and even . ANESTHESIA Local injection of 1% Lidocaine DESCRIPTION OF THE PROCEDURE The patient was placed in supine, mild Trendelenburg position. The area was exposed and cleansed with ChloraPrep, times two. Large sterile drape was used to cover the patient, with the site exposed, under sterile conditions including cap, face mask, sterile gown, and sterile gloves. On single attempt, the introducer needle was inserted with negative pressure in syringe and venous flash was obtained. The guide wire was then advanced without any restriction and the needle was removed. The dilator was used without any complications. Using Seldinger technique the 20 cm 7F trip[le lumen catheter was advanced over the guide wire to a depth of 17 centimeters. The guide wire was removed. All ports were aspirated with dark venous blood return and flushed easily with sterile saline. All ports were capped. Antibiotic disc was placed around central line at puncture site. The central line was secured to the skin with two interrupted 2.0 silk sutures. The area was bandaged with sterile see- through central line bandage. RADIOLOGICAL DATA Ultrasound guidance was used to locate RIJ. Doppler/color flow was used to confirm venous flow. COMPLICATIONS: No apparent complications ESTIMATED BLOOD LOSS: Less than 1 cc. Desi Quick MD August 10, 2017 05:17 <Electronically signed by Desi Quick MD> 08/10/17 0517 PATIENT PULLED LINE EARLY THIS MORNING ALREADY HAD NO ACCESS FOR LABS ETC Medications and IVs Inpatient Medications Acetaminophen (Tylenol) 650 mg Q6H PRN PO FEVER >101F Last administered on 08/15at 13:25; Start 08/06/17 at 17:30 Acetaminophen/ Hydrocodone Bitart ([place] 5-325 Mg) 1 tab Q6H PRN PO PAIN 6-10 Last administered on 08/08/17at 02:44; Start 08/07/17 at 12:30 Albuterol Sulfate (Albuterol Neb) 2.5 mg Q2HR NEB PRN INH SOB/WHEEZING; Start 08/06/17 at 17:30; Status Future Hold Amiodarone HCl (Cordarone) 400 mg Q12HR PO Last administered on 08/12/17at 08:23 ; Start 08/07/17 at 21:00; Stop 08/12/17 at 20:59; Status DC Apixaban (Eliquis) 5 mg BID PO Last administered on 08/15/17at 20:24; Start at 09:30 Atropine Sulfate (Atropine Inj) 0.5 mg UNSCH PRN IV PUSH VAGAL REPONSE; Start 08/13/17 at 09:45 Bacitracin (Bacitracin Oint Packet) 0.9 gm ONCE ONCE TOP ; Start 08/13/17 at 09 :45; Stop 08/13/17 at 10:03; Status DC Bisacodyl (Dulcolax Supp) 10 mg DAILY PRN RECTAL SEVERE CONSITIPATION Last administered on 08/14/17at 11:09; Start 08/06/17 at 17:30 Calcium Chloride 1 gm/Sodium Chloride 110 ml @ 110 mls/hr ONCE ONCE IV Last administered on 08/09/17at 11:19; Start 08/09/17 at 11:00; Stop 08/09/17 at 11:59 ; Status DC Calcium Chloride 2 gm/Dextrose 120 ml @ 120 mls/hr ONCE ONCE IV ; Start at 12:30; Stop 08/13/17 at 12:44; Status DC Calcium Gluconate 2 gm/Dextrose 120 ml @ 120 mls/hr ONCE ONCE IV Last administered on 08/15/17at 05:17; Start 08/15/17 at 05:30; Stop 08/15/17 at 06:29 ; Status DC Chlorhexidine Gluconate (Peridex 0.12% Liq) 15 ml BID@08,20 MT Last administered on 08/15/17at 20:00; Start 08/13/17 at 20:00 Colesevelam HCl (Welchol) 625 mg TID PO Last administered on 08/15/17at 17:08; Start 08/06/17 at 18:00 Dexmedetomidine HCl 200 mcg/ Sodium Chloride 52 ml @ 3.01 mls/hr TITRATE PRN IV SEDATION Last administered on 08/06/17at 23:36; Start 08/06/17 at 23:30; Stop 08/10/17 at 05:44; Status DC Dextrose/Sodium Chloride 500 ml @ 500 mls/hr BOLUS ONCE IV Last administered on 08/09/17at 20:00; Start 08/09/17 at 20:00; Stop 08/09/17 at 20:59; Status DC Digoxin (Lanoxin Inj) 0.25 mg NOW ONCE IV PUSH Last administered on 08/10/17at 05:35; Start 08/10/17 at 05:15; Stop 08/10/17 at 05:16; Status DC Diltiazem HCl (Cardizem Cd) 180 mg DAILY PO Last administered on 08/15/17at 07: 49; Start 08/13/17 at 13:00 Diltiazem HCl (Cardizem Inj) 14 mg BOLUS ONCE IV PUSH Last administered on at 19:25; Start 08/06/17 at 19:30; Stop 08/06/17 at 19:31; Status DC Diltiazem HCl (Cardizem) 60 mg STAT ONCE PO Last administered on 08/07/17at 08: 25; Start 08/07/17 at 08:15; Stop 08/07/17 at 08:16; Status DC Diltiazem HCl 125 mg/Sodium Chloride 125 ml @ 5 mls/hr TITRATE PRN IV tachycardia Last administered on 08/06/17at 19:21; Start 08/06/17 at 18:45; Stop 08/13/17 at 09:46; Status DC Docusate Sodium (Colace) 100 mg BID PO Last administered on 08/15/17 20:25; Start 08/10/17 at 09:00 Esmolol HCl/ Sodium Chloride 250 ml @ 17.55 mls/ hr TITRATE PRN IV Blood Pressure Management Last administered on 08/13/17at 07:04; Start 08/07/17 at 08: 00; Stop 08/14/17 at 11:03; Status DC Famotidine (Pepcid) 10 mg BID PO Last administered on 08/15/17at 20:25; Start at 21:00 Flecainide Acetate (Tambocor) 100 mg Q12HR PO Last administered on 08/15/17 20 :25; Start 08/13/17 at 21:00 Furosemide (Lasix Inj) 40 mg BID@09,18 IV PUSH Last administered on 08/15/17at 17:08; Start 08/13/17 at 12:30 Furosemide (Lasix) 40 mg DAILY PO Last administered on 08/12/17at 08:25; Start 08/07/17 at 09:00; Stop 08/13/17 at 12:21; Status DC Lactulose (Lactulose Liq) 30 ml DAILY PRN PO SEVERE CONSITIPATION; Start at 17:30 Levalbuterol HCl (Xopenex Neb) 1.25 mg Q2HR NEB PRN NEB SEE LABEL COMMENTS Last administered on 08/16/17at 04:12; Start 08/10/17 at 00:15 Levothyroxine Sodium (Synthroid) 88 mcg DAILY@0600 PO Last administered on 08/16at 05:08; Start 08/07/17 at 06:00 Lidocaine HCl (Xylocaine 1% Inj (50 ml)) 10 ml UNSCH PRN INFIL SHEATH REMOVAL; Start 08/13/17 at 09:45; Stop 08/14/17 at 09:44; Status DC Lisinopril (Prinivil) 10 mg DAILY PO Last administered on 08/09/17at 10:16; Start 08/07/17 at 09:00; Status Future Hold Lorazepam (Ativan Inj) 0.5 mg Q6H PRN IM anxiety Last administered on at 20:26; Start 08/15/17 at 19:30 Magnesium Hydroxide (Milk Of Magnesia Liq) 30 ml Q12H PRN PO Mild constipation Last administered on 08/14/17at 11:09; Start 08/06/17 at 17:30 Magnesium Oxide (Mag-Ox) 800 mg UNSCH PRN PO For Magnesium 1.2 - 1.6 mg/dL; Start 08/12/17 at 09:45 Magnesium Sulfate 2 gm/Sodium Chloride 100 ml @ 50 mls/hr UNSCH PRN IV For Magnesium 1.2 - 1.6 mg/dL; Start 08/12/17 at 09:45 Magnesium Sulfate 4 gm/Sodium Chloride 100 ml @ 50 mls/hr UNSCH PRN IV For Magnesium 0.9 - 1.1 mg/dL; Start 08/12/17 at 09:45 Metoclopramide HCl (Reglan Inj) 10 mg Q4H PRN IV PUSH NAUSEA; Start 08/13/17 at 09:45 Metoprolol Tartrate (Lopressor Inj) 2.5 mg Q4H PRN IV PUSH HR>105 Last administered on 08/12/17at 16:54; Start 08/07/17 at 15:30 Miscellaneous Information [place] [place] ALL NURSING DEPARTME... UNSCH PRN .XX SEE LABEL COMMENTS; Start 08/13/17 at 10:37; Stop 08/14/17 at 10: 36; Status DC Morphine Sulfate (Morphine Inj) 0.5 mg ONCE ONCE IV PUSH Last administered on 08/07/17at 13:19; Start 08/07/17 at 12:30; Stop 08/07/17 at 12:31; Status DC Nicardipine HCl 25 mg/Sodium Chloride 260 ml @ 52 mls/hr TITRATE PRN IV Blood Pressure Management Last administered on 08/14/17at 05:33; Start 08/13/17 at 17: 45; Stop 08/14/17 at 11:03; Status DC Ondansetron HCl (Zofran Odt) 4 mg Q4H PRN PO NAUSEA; Start 08/13/17 at 09:45 Ondansetron HCl (Zofran Inj) 4 mg Q6H PRN IV PUSH NAUSEA OR VOMITING; Start at 17:30; Stop 08/06/17 at 17:49; Status DC Phenylephrine HCl 40 mg/Dextrose 500 ml @ 30 mls/hr TITRATE PRN IV SBP < 90; Start 08/13/17 at 11:15; Stop 08/14/17 at 11:03; Status DC Potassium Phosphate (K-Phos) 2,000 mg UNSCH PRN PO/TUBE SEE LABEL COMMENTS; Start 08/12/17 at 09:45 Potassium Phosphate 30 mmol/ Sodium Chloride 260 ml @ 42 mls/hr UNSCH PRN IV SEE LABEL COMMENTS Last administered on 08/13/17at 04:50; Start 08/12/17 at 09:45 Potassium Bicarb/ Potassium Chloride (K-Lyte Cl Eff) 50 meq ONCE ONCE PO Last administered on 08/13/17at 12:59; Start 08/13/17 at 12:30; Stop 08/13/17 at 12:44; Status DC Potassium Chloride 100 ml @ 50 mls/hr Q2H PRN IV For Potassium 3.3 - 3.5 mEq/L ; Start 08/12/17 at 09:45 Propofol 100 ml @ 2.034 mls/ hr TITRATE PRN IV SEDATION; Start 08/13/17 at 15: 30; Stop 08/14/17 at 11:03; Status DC Senna/Docusate Sodium (Beatrice-Colace) 1 tab BID PO Last administered on at 21:54; Start 08/06/17 at 21:00; Stop 08/09/17 at 22:55; Status DC Sennosides (Senokot) 17.2 mg Q12H PRN PO Moderate constipation Last administered on 08/14/17at 04:11; Start 08/06/17 at 17:30 Sodium Bicarbonate (Sodium Bicarbonate 8.4% Inj) 50 meq ONCE ONCE IV PUSH Last administered on 08/10/17at 05:34; Start 08/10/17 at 05:30; Stop 08/10/17 at 05:31; Status DC Sodium Chloride 250 ml @ 500 mls/hr ONCE PRN IV VAGAL REPONSE; Start 08/13/17 at 09:45; Stop 08/14/17 at 09:44; Status DC Sodium Chloride (NS Flush) 2 ml BID IV FLUSH Last administered on 08/15/17at 20: 25; Start 08/06/17 at 21:00 Sodium Phosphate 30 mmol/Sodium Chloride 250 ml @ 42 mls/hr UNSCH PRN IV For Phosphorus < 2.5 mg/dL; Start 08/12/17 at 09:45 Terbutaline Sulfate (Brethine Inj) 1 mg UNSCH PRN SQ FOR EXTRAVASATION PROTOCOL ; Start 08/13/17 at 11:15; Stop 08/14/17 at 11:03; Status DC Tramadol HCl (Ultram) 50 mg Q6H PRN PO PAIN SCALE 1 TO 10 Last administered on 08/08/17at 07:54; Start 08/06/17 at 17:30 Vasopressin 40 units/Dextrose 100 ml @ 1.5 mls/hr Q24H PRN IV SBP < 90; Start 08/13/17 at 11:15; Stop 08/14/17 at 11:03; Status DC A/P Assessment and Plan Acute hypoxemic respiratory failure- leukocytosis- improved -s/p intubation/extubation -desaturates easily- afebrile. -Titrate FiO2 to keep saturation more than 90% - aggressive pulmonary toilet. i.s., ez-pap, acapella. -BiPaP as needed. -pulmonary consulted. Acute exacerbation of systolic heart failure Atrial fibrillation/flutter s/p EP ablation -Patient is status post successful ablation of atrial fibrillation/flutter -Continue Cardizem CD, flecainide, Eliquis -Received IV Lasix 40 mg 1, continue IV Lasix 40 every 12, hold p.o. 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 famotidine. -ST following. Hyponatremia now resolved Hypokalemia hypocalcemia hypophosphatemia -Chronic hyponatremia, now corrected -Monitor trend -Aggressive electrolyte replacement- per ICU electrolyte protocol. -Hypothyroidism Continue home dose levothyroxine 88 mcg daily acute encephalopathy -seems to be improving. -evaluated by neurology. DVT GI prophylaxis -Lexx's and SCDs -Eliquis palliative care following. will continue to monitor in ICU closely. Redd Nick MD August 16, 2017 07:39
[2017-08-16] MEDS: CHLORHEXIDINE 0.12% (ORAL KIT) 15 ML CUP MT SCH ×2 (08:00→20:00)
--- NOTE | 2017-08-16 08:28 | EKG ---
Date Performed: 08/14/2017 Time Performed: 13:37:52 PTAGE: 86 years EKG: Sinus rhythm . Possible left atrial abnormality Left ventricular hypertrophy Inferior/lateral ST-T changes are pro bably due to ventricular hypertrophy Abnormal ECG PREVIOUS TRACING : 08/13/2017 10.54 DOCTOR: Leo Pickard Interpretating Date/Time 08/16/2017 08:18:31
[2017-08-16] MEDS: FLECAINIDE ACETATE 100 MG TAB PO SCH ×2 (09:00→20:30)
[2017-08-16] MEDS: COLESEVELAM HCL 625 MG TAB PO SCH ×3 (09:00→17:42)
[2017-08-16] MEDS: SODIUM CHLORIDE 0.9% FLUSH 10 ML FLUSH IV FLUSH SCH ×2 (09:00→20:30)
[2017-08-16] MEDS: DOCUSATE SODIUM 100 MG CAP PO SCH ×2 (09:00→20:30)
[2017-08-16] MEDS: FAMOTIDINE 20 MG TAB PO SCH ×2 (09:00→20:30)
[2017-08-16] MEDS: APIXABAN 5 MG TABLET PO SCH ×2 (09:00→20:30)
[2017-08-16] MEDS: DILTIAZEM-CD 180 MG CAP ER PO SCH (09:00)
--- NOTE | 2017-08-16 10:38 | RADRPT ---
EXAM DATE: 08/16/2017 10:08 AM EDT AGE/SEX: 86 years / Female INDICATIONS: Right pleural effusion. CLINICAL DATA: This is the patient's initial encounter. Patient reports that signs and symptoms have been present for 1 day and indicates a pain score of 6/10. MEDICAL/SURGICAL HISTORY: Congestive heart failure. Hypercholesterolemia. Osteoporosis. Health Consultant ayaz back pain. Abdominal aortic aneurysm. Coronary artery disease. Atrial fibrillation. Hypertension. Colitis. Fibromyalgia. Humerus fracture. Anticoagulant therapy. Tonsillectomy. Cardiac ablation. Ky phoplasty. Cardioversion. Cataract surgery. COMPARISON: No prior [facility] exams available for comparison. MEASUREMENTS: Skin To Parietal Pleura:__1.8 cm Skin To Max Safe Depth:__2.5 cm Estimated Fluid Volume:__311 cc Fluid Composition:__simple FINDINGS: Patient is unable to tolerate sitting position. Images performed in decubitus positioning demonstrate s a small right pleural effusion. Team Member could not identify an adequate window for safe thoracen tesis and therefore marking was not performed. CONCLUSION: 1. Small right pleural effusion, as above. Electronically signed by: Calderon Cobb MD 08/16/2017 10:37 AM EDT
[2017-08-16] MEDS: FUROSEMIDE 40 MG/4 ML VIAL IV PUSH SCH ×2 (13:08→17:55)
[2017-08-16] MEDS: POTASSIUM PHOSPHATE INJ 30 MMOL in SODIUM CHLOR 0.9% 250 ML INJ 250 ML IV PRN (13:57)
[2017-08-16] MEDS: LORazepam 2 MG/ML VIAL IV PRN (17:55)
--- NOTE | 2017-08-16 19:47 | HHI.PR ---
Subjective Remarks She is on a BIPAP mask. FIO2 at 50 %. Urine output was Adequate. O2 sat 95. Objective Vital Signs Date Time Temp Pulse Resp B/P (MAP) Pulse Ox O2 Delivery O2 Flow Rate FiO2 08/16/17 19:00 80 43 151/65 (93) 80 08/16/17 19:00 80 08/16/17 18:07 91 08/16/17 18:07 91 37 180/77 (111) 08/16/17 18:00 99.2 93 45 171/72 (105) 08/16/17 18:00 93 08/16/17 17:13 90 100 08/16/17 17:00 78 08/16/17 17:00 78 23 155/64 (94) 76 08/16/17 16:01 83 40 171/74 (106) 83 08/16/17 16:01 83 08/16/17 16:00 83 08/16/17 16:00 83 41 190/74 (112) 80 08/16/17 14:00 75 36 156/66 (96) 89 08/16/17 14:00 75 08/16/17 13:00 76 55 159/70 (99) 93 08/16/17 13:00 76 08/16/17 12:00 74 08/16/17 12:00 98.4 74 32 151/66 (94) 88 08/16/17 11:52 92 08/16/17 11:00 73 08/16/17 10:00 68 08/16/17 08:46 97 60 08/16/17 08:00 60 08/16/17 08:00 94 Bi-Pap 08/16/17 08:00 98.2 68 16 134/64 (87) 98 08/16/17 06:00 63 08/16/17 04:13 97 90 08/16/17 04:00 64 08/16/17 04:00 98.0 64 16 120/59 (79) 98 08/16/17 02:00 64 08/16/17 01:20 95 100 08/16/17 00:00 98.1 67 15 130/58 (82) 89 08/16/17 00:00 67 08/15/17 22:00 74 08/15/17 21:30 94 90 08/15/17 20:00 89 Non-Rebreather 15.00 08/15/17 20:00 98.3 79 16 142/60 (87) 89 08/15/17 20:00 79 I/O 08/15/17 08/15/17 08/15/17 08/16/17 08/16/17 08/16/17 07:00 15:00 23:00 07:00 15:00 23:00 Intake Total 120 ml 100 ml 300 ml 300 ml 290 ml Output Total 1700 ml 1550 ml 950 ml 750 ml Balance -1580 ml 100 ml -1250 ml -650 ml -460 ml Intake Oral 0 ml 300 ml 40 ml IV Total 120 ml 100 ml 300 ml 250 ml Output Urine Total 1700 ml 1550 ml 950 ml 750 ml Bladder Scan Volume Amount 424 ml # Bowel Movements 1 1 0 2 Result Diagram: 08/16/17 0542 08/16/17541 Objective Remarks GENERAL: Well nourished/well developed patient in moderate distress CARDIOVASCULAR: IRRegular rate and rhythm without murmurs, gallops or rubs. RESPIRATORY: Bibasilar crackles.Wheeze heard. GASTROINTESTINAL: Abdomen soft, non-tender, nondistended. Normal active bowel sounds MUSCULOSKELETAL: Extremities without clubbing, cyanosis, but with 2+ pitting edema. NEURO: Alert & Oriented x4 to person, place, time, and situation. Moves all ext x4 Assessment and Plan Assessment and Plan A/P Assessment and Plan Resp: Acute hypoxemic respiratory failure Continue BiPAP12/5 CM FIO2 60 % -Titrate FiO2 to keep saturation more than 90%, -Check sputum culture -Levalbuterol as needed CVS: Acute exacerbation of systolic heart failure Atrial fibrillation/flutter s/p EP ablation -Patient is status post successful ablation of atrial fibrillation/flutter -Continue Cardizem CD, flecainide, Eliquis continue IV Lasix 40 every 12, hold p.o. Lasix -EF 30-35% on Echo 07/09 -Continue lisinopril -AAA 05/25/2017 CT Abdomen/Pelvis w/ focal aneurysmal dilatation of descending thoracic aorta 4.1cm and ascending aorta 4.2cm - no intervention needed GI: Po Diet as tolerated /Endo: Hyponatremia now resolved -Chronic hyponatremia, now corrected -Monitor trend Larry Lopez MD August 16, 2017 19:47
[2017-08-16] MEDS ORDERED: LORazepam 2 MG/ML VIAL IV PUSH ONE (20:00)
--- NOTE | 2017-08-16 20:58 | MB ---
cc: Larry Lopez MD DATE: 08/15/2017 REASON FOR CONSULTATION: Respiratory failure and pulmonary edema. HISTORY OF PRESENT ILLNESS: This is an 86-year-old white female who was initially admitted via the emergency room at [facility] with atrial fibrillation and rapid ventricular response. The patient has previously been seen by Dr. Pickard and had atrial ablation and cardioversion done in the past. She, however, was quite short of breath and orthopneic and was in pulmonary edema. She thus was seen in the ER and admitted. She does have also a history for hypertension and hypothyroidism. The patient, following admission, was seen by cardiology and also seen by critical care medicine and had been on a Cardizem infusion. She subsequently underwent an EP ablation procedure on 08/13 under general anesthesia. Post-procedure, she was extubated but was hypoxemic and sats dropped into the 80s and she was then reintubated. Chest x-ray showed pulmonary edema and basilar consolidation on the left. She was given IV Lasix and sedated and transferred to the intensive care unit. Over the past 2 days, the patient was weaned off the respirator and placed on CPAP and subsequently extubated and now on a nonrebreather mask at a 70% FiO2. She is awake, talking, complains of shortness of breath, chest tightness, and wheezing but denies hemoptysis. She does have a persistent cough and no nausea or vomiting. Chest x-ray still shows bilateral pulmonary infiltrates as well as a right pleural effusion. PAST MEDICAL HISTORY: Included a history for congestive heart failure, atrial fibrillation, history of depression, anxiety, fibromyalgia, history of hypertension and chronic back pain with compression fractures. PAST SURGICAL HISTORY: Includes tonsillectomy, lipoma resection, kyphoplasty and cataract repair with implants. ALLERGIES: DOXYCYCLINE, TIGECYCLINE, CODEINE, PREDNISONE, AMIODARONE HABITS: The patient does not smoke. No history of significant alcohol use. FAMILY HISTORY: Unavailable and noncontributory. REVIEW OF SYSTEMS: The patient is unable to relate details. She does not have any chest pain. She does have some leg swelling. She has joint pains and lower back pain and nausea as well as urinary frequency and anxiety. PHYSICAL EXAMINATION: GENERAL: This is a thinly built, elderly lady, pale and dyspneic. She responds appropriately, moving all her extremities. VITAL SIGNS: Blood pressure 110/60, pulse is 94, respirations 24, temperature 97.8. HEENT: Head is normocephalic. Pupils are reactive and equal. Tongue is dry. Throat is injected. Nasal mucosa edematous. NECK: Supple with venous distention at 45 degrees. Trachea midline. CHEST: Decreased breath sounds at the bases with wheezes bilaterally and basilar crackles, more so on the right side. HEART: The heart sounds are regular, S1 and S2 with no definite murmur. ABDOMEN: Soft, protuberant without masses. No organomegaly or tenderness. Bowel sounds are active. EXTREMITIES: Varicosities, edema with 2+ decreased pulses. NEUROLOGIC: Reflexes are 1+. The patient does move all her extremities well with no gross motor deficits. SKIN: Dry and cool. ASSESSMENT AND PLAN: 1. Respiratory failure with pulmonary edema. 2. Atrial fibrillation, status post atrial ablation. 3. Hyponatremia. 4. Chronic back pain. 5. Abdominal aortic aneurysm. 6. Hypothyroidism. PLAN: The patient will be placed on BiPAP 15/5 cm with FiO2 of 40%, keep sats over 92. Continue with IV Lasix 40 mg IV b.i.d., nebulized albuterol and Atrovent solution used q.6 hours. She will be continued on antibiotic coverage as ordered. Ativan 0.5 mg q.8 hours p.r.n. for agitation. Repeat chest x-ray in a.m. and blood gas studies as well. The patient will be switched over to a Ventimask if her O2 saturations have improved in the morning. I will follow the case with you, Dr. Nick. Thank you for this consultation. Larry Lopez MD VTHIEN/ , 07:56 PM , 08:57 PM
[2017-08-16] MEDS: METOPROLOL TARTRATE 5 MG/5 ML VIAL IV PUSH PRN (21:26)
[2017-08-16] MEDS ORDERED: diphenhydrAMINE HCL 50 MG/ML VIAL IV PUSH ONE (22:15)
[2017-08-17] VITALS (16 sets, daily range): BP systolic 98–147; BP diastolic 50–66; PULSE 101–132; RESP 27–58; TEMP 97.3–99.6; O2SAT 93–98
[2017-08-17] MEDS ORDERED: METOPROLOL TARTRATE 5 MG/5 ML VIAL IV PUSH ONE (01:00)
[2017-08-17] MEDS: LORazepam 2 MG/ML VIAL IV PRN ×2 (02:28→10:41)
[2017-08-17] MEDS: METOPROLOL TARTRATE 5 MG/5 ML VIAL IV PUSH PRN ×2 (02:34→06:42)
[2017-08-17 02:41] LABS: PHOSPHORUS 2.4 MG/DL (2.5-4.9)
[2017-08-17] MEDS: POTASSIUM PHOSPHATE INJ 30 MMOL in SODIUM CHLOR 0.9% 250 ML INJ 250 ML IV PRN (03:30)
[2017-08-17 04:20] LABS: HEMATOCRIT 36.1 % (35.0-46.0); MEAN CELL VOLUME 90.4 FL (80.0-100.0); MEAN CORPUSCULAR HGB CONC 33.2 % (32.0-36.0); MEAN PLATELET VOLUME 8.9 FL (7.0-11.0); PLATELET COUNT 324 TH/MM3 (150-450); RED BLOOD COUNT 3.99 MIL/MM3 (4.00-5.30); RED CELL DISTRIBUTION WIDTH 16.2 % (11.6-17.2)
[2017-08-17 04:49] LABS: BICARBONATE 36.3 MEQ/L (21.0-32.0); CALCIUM 6.3 MG/DL (8.5-10.1); CREATININE 1.02 MG/DL (0.50-1.00)
--- NOTE | 2017-08-17 04:51 | RADRPT ---
EXAM DATE: 08/17/2017 4:46 AM EDT AGE/SEX: 86 years / Female INDICATIONS: Shortness of breath, possible pulmonary disease. CLINICAL DATA: This is the patient's subsequent encounter. Patient reports that signs and symptoms h ave been present for 3 days and indicates a pain score of 0/10. MEDICAL/SURGICAL HISTORY: . A-Fib Kyphoplasty. COMPARISON: [facility] [place], CHEST SINGLE AP, 08/15/2017. . FINDINGS: Right greater than left basilar consolidation again noted and with a small right pleural effusion, al l not significantly changed. No pneumothorax seen. Heart size stable, within normal limits. Thoracic aorta is tortuous and atherosclerotic. CONCLUSION: No significant change. Right greater than left basilar consolidation and small right pleural effusion again noted. Electronically signed by: Abdelrahman Krueger MD 08/17/2017 4:50 AM EDT
[2017-08-17 05:04] LABS: TOTAL PROTEIN 5.6 GM/DL (6.4-8.2)
[2017-08-17] MEDS: LEVOTHYROXINE SODIUM 88 MCG TAB PO SCH (05:31)
[2017-08-17] MEDS ORDERED: CALCIUM GLUCONATE INJ 1 GM in DEXTROSE 5% IN WATER 100ML INJ 100 ML IV ONE ×2 (06:30)
--- NOTE | 2017-08-17 07:43 | HHI.PR ---
Subjective Remarks lethargic; moaning to calling her name. had to be on BiPaP over night. now tachycardic again. no fever today. Objective Vitals Vital Signs Date Time Temp Pulse Resp B/P (MAP) Pulse Ox O2 Delivery O2 Flow Rate FiO2 08/17/17 07:31 97 Partial Rebreather 08/17/17 06:00 119 08/17/17 04:00 97.3 121 30 112/57 (75) 94 08/17/17 04:00 121 08/17/17 03:19 94 90 08/17/17 02:00 122 08/17/17 00:00 117 08/17/17 00:00 99.6 117 30 110/55 (73) 96 08/16/17 22:18 96 90 08/16/17 22:00 123 08/16/17 20:14 93 100 08/16/17 20:00 99.6 80 31 150/68 (95) 96 08/16/17 20:00 80 08/16/17 20:00 96 Bi-Pap 100 08/16/17 19:00 80 43 151/65 (93) 80 08/16/17 19:00 80 08/16/17 18:07 91 08/16/17 18:07 91 37 180/77 (111) 08/16/17 18:00 99.2 93 45 171/72 (105) 08/16/17 18:00 93 08/16/17 17:13 90 100 08/16/17 17:00 78 08/16/17 17:00 78 23 155/64 (94) 76 08/16/17 16:01 83 40 171/74 (106) 83 08/16/17 16:01 83 08/16/17 16:00 83 08/16/17 16:00 83 41 190/74 (112) 80 08/16/17 14:00 75 36 156/66 (96) 89 08/16/17 14:00 75 08/16/17 13:00 76 55 159/70 (99) 93 08/16/17 13:00 76 08/16/17 12:00 74 08/16/17 12:00 98.4 74 32 151/66 (94) 88 08/16/17 11:52 92 08/16/17 11:00 73 5/25/18 10:00 68 08/16/17 08:46 97 60 08/16/17 08:00 60 08/16/17 08:00 94 Bi-Pap 08/16/17 08:00 98.2 68 16 134/64 (87) 98 I/O 08/16/17 08/16/17 08/16/17 08/17/17 08/17/17 08/17/17 06:59 14:59 22:59 06:59 14:59 22:59 Intake Total 300 ml 290 ml 392 ml 110 ml Output Total 950 ml 750 ml 1100 ml Balance -650 ml -460 ml -708 ml 110 ml Intake Oral 40 ml IV Total 300 ml 250 ml 392 ml 110 ml Output Urine Total 950 ml 750 ml 1100 ml Bladder Scan Volume Amount 424 ml # Bowel Movements 0 2 1 Result Diagram: 08/17/17 0320 08/17/17 0320 Imaging Last Impressions Chest X-Ray 08/17/17 0600 Signed Impressions: CONCLUSION: No significant change. Right greater than left basilar consolidation and small right pleural effusion again noted. Chest Ultrasound 08/16/17 0000 Signed Impressions: CONCLUSION: 1. Small right pleural effusion, as above. Head CT 08/09/17 1639 Signed Impressions: Service Date/Time: Wednesday, August 09, 2017 17:52 - CONCLUSION: No acute disease. Abdelrahman Leary MD Head CTA 08/09/17 1624 Signed Impressions: Service Date/Time: Wednesday, August 09, 2017 17:52 - CONCLUSION: Mild fusiform dilatation of the cavernous portion of the internal carotid artery on the left. The more distal flow is normal. Abdelrahman Leary MD Neck CTA 08/09/17 0000 Signed Impressions: Service Date/Time: Wednesday, August 09, 2017 17:52 - CONCLUSION: No significant stenosis is seen. Abdelrahman Leary MD Abdomen/Pelvis CT 08/09/17 0000 Signed Impressions: Service Date/Time: Wednesday, August 09, 2017 22:20 - CONCLUSION: 1. Moderate right pleural effusion and mild left pleural effusion with accompanying atelectasis. 2. Mild amount of free fluid in the lower pelvic peritoneal cavity/cul-de-sac. 3. Edema seen throughout the subcutaneous tissues likely from anasarca. 4. Bladder diverticulum. 5. Contrast in the bladder and kidneys from prior administration. Abdelrahman Leary MD Abdomen X-Ray 08/09/17 0000 Signed Impressions: Service Date/Time: Wednesday, August 09, 2017 20:35 - CONCLUSION: 1. Mild nonspecific colonic dilatation. 2. Status post vertebroplasty of L2. 3. 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 4. 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 Abdelrahman Leary MD Objective Remarks GENERAL: elderly female with some sob-on oxygen mask CARDIOVASCULAR: Regular rate and regular rhythm without murmurs, gallops, or rubs. RESPIRATORY: diminished air entry in bases GASTROINTESTINAL: Abdomen soft, non-tender, nondistended. Normal, active bowel sounds MUSCULOSKELETAL: Extremities without clubbing, cyanosis, or edema. NEURO: Alert & Oriented x4 to person, place, time, situation. Moves all ext x4 Procedures REASON FOR PROCEDURE Central venous access - PROCEDURE PERFORMED Central line placement: RIJ central line placement CONSENT Informed consent for procedure was obtained from . The risks and benefits of the procedure were discussed to include but limited to bleeding, clot formation, infection, and even . ANESTHESIA Local injection of 1% Lidocaine DESCRIPTION OF THE PROCEDURE The patient was placed in supine, mild Trendelenburg position. The area was exposed and cleansed with ChloraPrep, times two. Large sterile drape was used to cover the patient, with the site exposed, under sterile conditions including cap, face mask, sterile gown, and sterile gloves. On single attempt, the introducer needle was inserted with negative pressure in syringe and venous flash was obtained. The guide wire was then advanced without any restriction and the needle was removed. The dilator was used without any complications. Using Seldinger technique the 20 cm 7F trip[le lumen catheter was advanced over the guide wire to a depth of 17 centimeters. The guide wire was removed. All ports were aspirated with dark venous blood return and flushed easily with sterile saline. All ports were capped. Antibiotic disc was placed around central line at puncture site. The central line was secured to the skin with two interrupted 2.0 silk sutures. The area was bandaged with sterile see- through central line bandage. RADIOLOGICAL DATA Ultrasound guidance was used to locate RIJ. Doppler/color flow was used to confirm venous flow. COMPLICATIONS: No apparent complications ESTIMATED BLOOD LOSS: Less than 1 cc. Desi Quick MD August 10, 2017 05:17 <Electronically signed by Desi Quick MD> 08/10/17 0517 PATIENT PULLED LINE EARLY THIS MORNING ALREADY HAD NO ACCESS FOR LABS ETC Medications and IVs Inpatient Medications Acetaminophen (Tylenol) 650 mg Q6H PRN PO FEVER >101F Last administered on 08/15 13:25; Start 08/06/17 at 17:30 Acetaminophen/ Hydrocodone Bitart (Energy 5-325 Mg) 1 tab Q6H PRN PO PAIN 6-10 Last administered on 08/08/17at 02:44; Start 08/07/17 at 12:30 Albuterol Sulfate (Albuterol Neb) 2.5 mg Q2HR NEB PRN INH SOB/WHEEZING; Start 08/06/17 at 17:30; Status Future Hold Amiodarone HCl (Cordarone) 400 mg Q12HR PO Last administered on 08/12/17 08:23 ; Start 08/07/17 at 21:00; Stop 08/12/17 at 20:59; Status DC Apixaban (Eliquis) 5 mg BID PO Last administered on 08/15/17at 20:24; Start at 09:30 Atropine Sulfate (Atropine Inj) 0.5 mg UNSCH PRN IV PUSH VAGAL REPONSE; Start 08/13/17 at 09:45 Bacitracin (Bacitracin Oint Packet) 0.9 gm ONCE ONCE TOP ; Start 08/13/17 at 09 :45; Stop 08/13/17 at 10:03; Status DC Bisacodyl (Dulcolax Supp) 10 mg DAILY PRN RECTAL SEVERE CONSITIPATION Last administered on 08/14/17at 11:09; Start 08/06/17 at 17:30 Calcium Chloride 1 gm/Sodium Chloride 110 ml @ 110 mls/hr ONCE ONCE IV Last administered on 08/09/17at 11:19; Start 08/09/17 at 11:00; Stop 08/09/17 at 11:59 ; Status DC Calcium Chloride 2 gm/Dextrose 120 ml @ 120 mls/hr ONCE ONCE IV ; Start at 12:30; Stop 08/13/17 at 12:44; Status DC Calcium Gluconate 1 gm/Dextrose 110 ml @ 110 mls/hr ONCE ONCE IV Last administered on 08/17/17at 06:05; Start 08/17/17 at 06:30; Stop 08/17/17 at 07:29 ; Status DC Calcium Gluconate 2 gm/Dextrose 120 ml @ 120 mls/hr ONCE ONCE IV Last administered on 08/15/17at 05:17; Start 08/15/17 at 05:30; Stop 08/15/17 at 06:29 ; Status DC Chlorhexidine Gluconate (Peridex 0.12% Liq) 15 ml BID@08,20 MT Last administered on 08/16/17at 08:00; Start 08/13/17 at 20:00 Colesevelam HCl (Welchol) 625 mg TID PO Last administered on 08/15/17at 17:08; Start 08/06/17 at 18:00 Dexmedetomidine HCl 200 mcg/ Sodium Chloride 52 ml @ 3.01 mls/hr TITRATE PRN IV SEDATION Last administered on 08/06/17at 23:36; Start 08/06/17 at 23:30; Stop 08/10/17 at 05:44; Status DC Dextrose/Sodium Chloride 500 ml @ 500 mls/hr BOLUS ONCE IV Last administered on 08/09/17at 20:00; Start 08/09/17 at 20:00; Stop 08/09/17 at 20:59; Status DC Digoxin (Lanoxin Inj) 0.25 mg NOW ONCE IV PUSH Last administered on 08/10/17at 05:35; Start 08/10/17 at 05:15; Stop 08/10/17 at 05:16; Status DC Diltiazem HCl (Cardizem Cd) 180 mg DAILY PO Last administered on 08/15/17at 07: 49; Start 08/13/17 at 13:00 Diltiazem HCl (Cardizem Inj) 14 mg BOLUS ONCE IV PUSH Last administered on at 19:25; Start 08/06/17 at 19:30; Stop 08/06/17 at 19:31; Status DC Diltiazem HCl (Cardizem) 60 mg STAT ONCE PO Last administered on 08/07/17at 08: 25; Start 08/07/17 at 08:15; Stop 08/07/17 at 08:16; Status DC Diltiazem HCl 125 mg/Sodium Chloride 125 ml @ 5 mls/hr TITRATE PRN IV tachycardia Last administered on 08/06/17 19:21; Start 08/06/17 at 18:45; Stop 08/13/17 at 09:46; Status DC Diphenhydramine HCl (Benadryl Inj) 25 mg ONCE ONCE IV PUSH Last administered on 08/16/17at 22:35; Start 08/16/17 at 22:15; Stop 08/16/17 at 22:17; Status DC Docusate Sodium (Colace) 100 mg BID PO Last administered on 08/15/17at 20:25; Start 08/10/17 at 09:00 Esmolol HCl/ Sodium Chloride 250 ml @ 17.55 mls/ hr TITRATE PRN IV Blood Pressure Management Last administered on 08/13/17at 07:04; Start 08/07/17 at 08: 00; Stop 08/14/17 at 11:03; Status DC Famotidine (Pepcid) 10 mg BID PO Last administered on 08/15/17at 20:25; Start at 21:00 Flecainide Acetate (Tambocor) 100 mg Q12HR PO Last administered on 08/15/17at 20 :25; Start 08/13/17 at 21:00 Furosemide (Lasix Inj) 40 mg BID@09,18 IV PUSH Last administered on 08/16/17at 17:55; Start 08/13/17 at 12:30 Furosemide (Lasix) 40 mg DAILY PO Last administered on 08/12/17at 08:25; Start 08/07/17 at 09:00; Stop 08/13/17 at 12:21; Status DC Lactulose (Lactulose Liq) 30 ml DAILY PRN PO SEVERE CONSITIPATION; Start at 17:30 Levalbuterol HCl (Xopenex Neb) 1.25 mg Q2HR NEB PRN NEB SEE LABEL COMMENTS Last administered on 08/16/17at 20:13; Start 08/10/17 at 00:15 Levothyroxine Sodium (Synthroid) 88 mcg DAILY@0600 PO Last administered on 08/16at 05:08; Start 08/07/17 at 06:00 Lidocaine HCl (Xylocaine 1% Inj (50 ml)) 10 ml UNSCH PRN INFIL SHEATH REMOVAL; Start 08/13/17 at 09:45; Stop 08/14/17 at 09:44; Status DC Lisinopril (Prinivil) 10 mg DAILY PO Last administered on 08/09/17at 10:16; Start 08/07/17 at 09:00; Status Future Hold Lorazepam (Ativan Inj) 0.5 mg ONCE ONCE IV PUSH Last administered on at 20:30; Start 08/16/17 at 20:00; Stop 08/16/17 at 20:01; Status DC Magnesium Hydroxide (Milk Of Magnesia Liq) 30 ml Q12H PRN PO Mild constipation Last administered on 08/14/17at 11:09; Start 08/06/17 at 17:30 Magnesium Oxide (Mag-Ox) 800 mg UNSCH PRN PO For Magnesium 1.2 - 1.6 mg/dL; Start 08/12/17 at 09:45 Magnesium Sulfate 2 gm/Sodium Chloride 100 ml @ 50 mls/hr UNSCH PRN IV For Magnesium 1.2 - 1.6 mg/dL; Start 08/12/17 at 09:45 Magnesium Sulfate 4 gm/Sodium Chloride 100 ml @ 50 mls/hr UNSCH PRN IV For Magnesium 0.9 - 1.1 mg/dL; Start 08/12/17 at 09:45 Metoclopramide HCl (Reglan Inj) 10 mg Q4H PRN IV PUSH NAUSEA; Start 08/13/17 at 09:45 Metoprolol Tartrate (Lopressor Inj) 5 mg ONCE ONCE IV PUSH Last administered on 08/17/17at 01:03; Start 08/17/17 at 01:00; Stop 08/17/17 at 01:01; Status DC Miscellaneous Information ([facility] Nursing Information) ALL NURSING DEPARTME... UNSCH PRN .XX SEE LABEL COMMENTS; Start 08/13/17 at 10:37; Stop 08/14/17 at 10: 36; Status DC Morphine Sulfate (Morphine Inj) 0.5 mg ONCE ONCE IV PUSH Last administered on 08/07/17at 13:19; Start 08/07/17 at 12:30; Stop 08/07/17 at 12:31; Status DC Nicardipine HCl 25 mg/Sodium Chloride 260 ml @ 52 mls/hr TITRATE PRN IV Blood Pressure Management Last administered on 08/14/17at 05:33; Start 08/13/17 at 17: 45; Stop 08/14/17 at 11:03; Status DC Ondansetron HCl (Zofran Odt) 4 mg Q4H PRN PO NAUSEA; Start 08/13/17 at 09:45 Ondansetron HCl (Zofran Inj) 4 mg Q6H PRN IV PUSH NAUSEA OR VOMITING; Start at 17:30; Stop 08/06/17 at 17:49; Status DC Phenylephrine HCl 40 mg/Dextrose 500 ml @ 30 mls/hr TITRATE PRN IV SBP < 90; Start 08/13/17 at 11:15; Stop 08/14/17 at 11:03; Status DC Potassium Phosphate (K-Phos) 2,000 mg UNSCH PRN PO/TUBE SEE LABEL COMMENTS; Start 08/12/17 at 09:45 Potassium Phosphate 30 mmol/ Sodium Chloride 260 ml @ 42 mls/hr UNSCH PRN IV SEE LABEL COMMENTS Last administered on 08/17/17at 03:30; Start 08/12/17 at 09:45 Potassium Bicarb/ Potassium Chloride (K-Lyte Cl Eff) 50 meq ONCE ONCE PO Last administered on 08/13/17at 12:59; Start 08/13/17 at 12:30; Stop 08/13/17 at 12:44; Status DC Potassium Chloride 100 ml @ 50 mls/hr Q2H PRN IV For Potassium 3.3 - 3.5 mEq/L ; Start 08/12/17 at 09:45 Propofol 100 ml @ 2.034 mls/ hr TITRATE PRN IV SEDATION; Start 08/13/17 at 15: 30; Stop 08/14/17 at 11:03; Status DC Senna/Docusate Sodium (Beatrice-Colace) 1 tab BID PO Last administered on at 21:54; Start 08/06/17 at 21:00; Stop 08/09/17 at 22:55; Status DC Sennosides (Senokot) 17.2 mg Q12H PRN PO Moderate constipation Last administered on 08/14/17at 04:11; Start 08/06/17 at 17:30 Sodium Bicarbonate (Sodium Bicarbonate 8.4% Inj) 50 meq ONCE ONCE IV PUSH Last administered on 08/10/17at 05:34; Start 08/10/17 at 05:30; Stop 08/10/17 at 05:31; Status DC Sodium Chloride 250 ml @ 500 mls/hr ONCE PRN IV VAGAL REPONSE; Start 08/13/17 at 09:45; Stop 08/14/17 at 09:44; Status DC Sodium Chloride (NS Flush) 2 ml BID IV FLUSH Last administered on 08/16/17at 20: 30; Start 08/06/17 at 21:00 Sodium Phosphate 30 mmol/Sodium Chloride 250 ml @ 42 mls/hr UNSCH PRN IV For Phosphorus < 2.5 mg/dL; Start 08/12/17 at 09:45 Terbutaline Sulfate (Brethine Inj) 1 mg UNSCH PRN SQ FOR EXTRAVASATION PROTOCOL ; Start 08/13/17 at 11:15; Stop 08/14/17 at 11:03; Status DC Tramadol HCl (Ultram) 50 mg Q6H PRN PO PAIN SCALE 1 TO 10 Last administered on 08/08/17at 07:54; Start 08/06/17 at 17:30 Vasopressin 40 units/Dextrose 100 ml @ 1.5 mls/hr Q24H PRN IV SBP < 90; Start 08/13/17 at 11:15; Stop 08/14/17 at 11:03; Status DC A/P Assessment and Plan Acute hypoxemic respiratory failure- leukocytosis- improved -s/p intubation/extubation -desaturates easily- afebrile. -Titrate FiO2 to keep saturation more than 90% - aggressive pulmonary toilet. i.s., ez-pap, acapella. -BiPaP as needed. -pulmonary consulted. Acute exacerbation of systolic heart failure Atrial fibrillation/flutter s/p EP ablation -back in a-fib with RVR -Patient is status post ablation of atrial fibrillation/flutter -Continue Cardizem CD, flecainide, Eliquis -Received IV Lasix 40 mg 1, continue IV Lasix 40 every 12, hold p.o. 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 famotidine. -ST following. Hyponatremia now resolved Hypokalemia hypocalcemia hypophosphatemia -Chronic hyponatremia, now corrected -Monitor trend -Aggressive electrolyte replacement- per ICU electrolyte protocol. -Hypothyroidism Continue home dose levothyroxine 88 mcg daily acute encephalopathy -seems to be improving. -evaluated by neurology. DVT GI prophylaxis -Lexx's and SCDs -Eliquis patient is critically ill. palliative care following. d/w the and gave him an update on her condition; will consult hospice per our discussion. Discharge Planning awaiting hospice evaluation. Redd Nick MD August 17, 2017 07:43
[2017-08-17] MEDS: CHLORHEXIDINE 0.12% (ORAL KIT) 15 ML CUP MT SCH (08:00)
[2017-08-17] MEDS: DOCUSATE SODIUM 100 MG CAP PO SCH (08:38)
[2017-08-17] MEDS: DILTIAZEM-CD 180 MG CAP ER PO SCH (08:38)
[2017-08-17] MEDS: COLESEVELAM HCL 625 MG TAB PO SCH ×2 (08:38→11:33)
[2017-08-17] MEDS: APIXABAN 5 MG TABLET PO SCH (08:38)
[2017-08-17] MEDS: SODIUM CHLORIDE 0.9% FLUSH 10 ML FLUSH IV FLUSH SCH (08:38)
[2017-08-17] MEDS: FAMOTIDINE 20 MG TAB PO SCH (08:38)
[2017-08-17] MEDS: FLECAINIDE ACETATE 100 MG TAB PO SCH (08:38)
[2017-08-17] MEDS: FUROSEMIDE 40 MG/4 ML VIAL IV PUSH SCH (08:57)
[2017-08-17] MEDS ORDERED: TRAM50TA PO (12:17)
[2017-08-17] MEDS ORDERED: Albuterol Neb INH (12:17)
--- NOTE | 2017-08-17 13:03 | HHI.DS ---
Discharge Summary Admission Date August 06, 2017 at 17:25 Discharge Date: August 17, 2017 Admitting Diagnosis RAPID ATRIAL FLUTTER (1) Atrial flutter with rapid ventricular response ICD Code: I48.92 - Unspecified atrial flutter Diagnosis: Principal Status: Acute Procedures REASON FOR PROCEDURE Central venous access 5-19 PROCEDURE PERFORMED Central line placement: RIJ central line placement CONSENT Informed consent for procedure was obtained from . The risks and benefits of the procedure were discussed to include but limited to bleeding, clot formation, infection, and even . ANESTHESIA Local injection of 1% Lidocaine DESCRIPTION OF THE PROCEDURE The patient was placed in supine, mild Trendelenburg position. The area was exposed and cleansed with ChloraPrep, times two. Large sterile drape was used to cover the patient, with the site exposed, under sterile conditions including cap, face mask, sterile gown, and sterile gloves. On single attempt, the introducer needle was inserted with negative pressure in syringe and venous flash was obtained. The guide wire was then advanced without any restriction and the needle was removed. The dilator was used without any complications. Using Seldinger technique the 20 cm 7F trip[le lumen catheter was advanced over the guide wire to a depth of 17 centimeters. The guide wire was removed. All ports were aspirated with dark venous blood return and flushed easily with sterile saline. All ports were capped. Antibiotic disc was placed around central line at puncture site. The central line was secured to the skin with two interrupted 2.0 silk sutures. The area was bandaged with sterile see- through central line bandage. RADIOLOGICAL DATA Ultrasound guidance was used to locate RIJ. Doppler/color flow was used to confirm venous flow. COMPLICATIONS: No apparent complications ESTIMATED BLOOD LOSS: Less than 1 cc. Desi Quick MD August 10, 2017 05:17 <Electronically signed by Desi Quick MD> 08/10/17 0517 PATIENT PULLED LINE EARLY THIS MORNING ALREADY HAD NO ACCESS FOR LABS ETC Brief History - From Admission 86-year-old female presented to emergency department at [place] because of fast heart rate. She has a history of atrial fibrillation. She has had 2 ablations done in the past. She had cardioversion done last summer. She has had a fast heart rate for several days at least. She is on Eliquis. She is not on any medication for rate control now. The patient has been having a hard fast heart rate for several days at least. She denies any chest pain. She had an EKG in May of this year which showed sinus rhythm. She takes lisinopril for high blood pressure. She does have chronic pain and is on tramadol. Also hypothyroidism on levothyroxine. CBC/BMP: 08/17/17 0320 08/17/17 0320 Significant Findings Laboratory Tests Test 08/15/17 03:20 08/15/17 22:00 08/16/17 05:42 08/17/17 01:33 White Blood Count 22.5 TH/MM3 (4.0-11.0) 12.5 TH/MM3 (4.0-11.0) Random Glucose 115 MG/DL (74-106) Total Protein 5.9 GM/DL (6.4-8.2) 5.2 GM/DL (6.4-8.2) Calcium Level 6.6 MG/DL (8.5-10.1) 6.7 MG/DL (8.5-10.1) Sodium Level 147 MEQ/L (136-145) 147 MEQ/L (136-145) Potassium Level 3.0 MEQ/L (3.5-5.1) 2.9 MEQ/L (3.5-5.1) 3.4 MEQ/L (3.5-5.1) Carbon Dioxide Level 38.3 MEQ/L (21.0-32.0) 39.6 MEQ/L (21.0-32.0) Estimat Glomerular Filtration Rate 69 ML/MIN (>89) 63 ML/MIN (>89) Protein Corrected Calcium 7.2 MG/DL (8.5-10.1) 7.7 MG/DL (8.5-10.1) Red Blood Count 3.84 MIL/MM3 (4.00-5.30) Hemoglobin 11.3 GM/DL (11.6-15.3) Hematocrit 34.8 % (35.0-46.0) Neutrophils (%) (Auto) 86.0 % (16.0-70.0) Lymphocytes (%) (Auto) 6.0 % (9.0-44.0) Neutrophils # (Auto) 10.7 TH/MM3 (1.8-7.7) Lymphocytes # (Auto) 0.7 TH/MM3 (1.0-4.8) Blood Urea Nitrogen 19 MG/DL (7-18) Phosphorus Level 0.8 MG/DL (2.5-4.9) 2.4 MG/DL (2.5-4.9) Anion Gap 4 MEQ/L (5-15) Test 08/17/17 03:20 08/17/17 05:45 Red Blood Count 3.99 MIL/MM3 (4.00-5.30) Blood Urea Nitrogen 24 MG/DL (7-18) Creatinine 1.02 MG/DL (0.50-1.00) Random Glucose 116 MG/DL (74-106) Total Protein 5.6 GM/DL (6.4-8.2) Calcium Level 6.3 MG/DL (8.5-10.1) Sodium Level 149 MEQ/L (136-145) Potassium Level 3.0 MEQ/L (3.5-5.1) Carbon Dioxide Level 36.3 MEQ/L (21.0-32.0) Estimat Glomerular Filtration Rate 52 ML/MIN (>89) Protein Corrected Calcium 7.0 MG/DL (8.5-10.1) Blood Gas HCO3 35 mmol/L (22-26) Blood Gas Base Excess 10.8 mmol/L (-2-2) Arterial Blood pH 7.48 (7.380-7.420) Arterial Blood Partial Pressure CO2 47 mmHg (38-42) Blood Gas Hemoglobin 11.8 G/DL (12.0-16.0) Imaging Last Impressions Chest X-Ray 08/17/17 0600 Signed Impressions: CONCLUSION: No significant change. Right greater than left basilar consolidation and small right pleural effusion again noted. Chest Ultrasound 08/16/17 0000 Signed Impressions: CONCLUSION: 1. Small right pleural effusion, as above. Head CT 08/09/17 1639 Signed Impressions: Service Date/Time: Wednesday, August 09, 2017 17:52 - CONCLUSION: No acute disease. Abdelrahman Leary MD Head CTA 08/09/17 1624 Signed Impressions: Service Date/Time: Wednesday, August 09, 2017 17:52 - CONCLUSION: Mild fusiform dilatation of the cavernous portion of the internal carotid artery on the left. The more distal flow is normal. Abdelrahman Leary MD Neck CTA 08/09/17 0000 Signed Impressions: Service Date/Time: Wednesday, August 09, 2017 17:52 - CONCLUSION: No significant stenosis is seen. Abdelrahman Leary MD Abdomen/Pelvis CT 08/09/17 0000 Signed Impressions: Service Date/Time: Wednesday, August 09, 2017 22:20 - CONCLUSION: 1. Moderate right pleural effusion and mild left pleural effusion with accompanying atelectasis. 2. Mild amount of free fluid in the lower pelvic peritoneal cavity/cul-de-sac. 3. Edema seen throughout the subcutaneous tissues likely from anasarca. 4. Bladder diverticulum. 5. Contrast in the bladder and kidneys from prior administration. Abdelrahman Leary MD Abdomen X-Ray 08/09/17 0000 Signed Impressions: Service Date/Time: Wednesday, August 09, 2017 20:35 - CONCLUSION: 1. Mild nonspecific colonic dilatation. 2. Status post vertebroplasty of L2. 3. 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 4. 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 Abdelrahman Leary MD PE at Discharge GENERAL: elderly female with some sob-on oxygen mask CARDIOVASCULAR: Regular rate and regular rhythm without murmurs, gallops, or rubs. RESPIRATORY: diminished air entry in bases GASTROINTESTINAL: Abdomen soft, non-tender, nondistended. Normal, active bowel sounds MUSCULOSKELETAL: Extremities without clubbing, cyanosis, or edema. NEURO: Alert & Oriented x4 to person, place, time, situation. Moves all ext x4 Hospital Course Acute hypoxemic respiratory failure- leukocytosis- improved -s/p intubation/extubation -desaturates easily- afebrile. -Titrate FiO2 to keep saturation more than 90% - aggressive pulmonary toilet. i.s., ez-pap, acapella. -BiPaP as needed. -pulmonary consulted. Acute exacerbation of systolic heart failure Atrial fibrillation/flutter s/p EP ablation -back in a-fib with RVR -Patient is status post ablation of atrial fibrillation/flutter -Continue Cardizem CD, flecainide, Eliquis -Received IV Lasix 40 mg 1, continue IV Lasix 40 every 12, hold p.o. 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 famotidine. -ST following. Hyponatremia now resolved Hypokalemia hypocalcemia hypophosphatemia -Chronic hyponatremia, now corrected -Monitor trend -Aggressive electrolyte replacement- per ICU electrolyte protocol. -Hypothyroidism Continue home dose levothyroxine 88 mcg daily acute encephalopathy -seems to be improving. -evaluated by neurology. DVT GI prophylaxis -Lexx's and SCDs -Eliquis Pt Condition on Discharge: Deteriorating Discharge Disposition: Hospice/Med Facility Discharge Time: > 30 minutes Discharge Instructions DIET: Follow Instructions for: Nothing By Mouth Activities you can perform: Regular-No Restrictions Redd Nick MD August 17, 2017 13:03
--- NOTE | 2017-08-17 13:04 | HHI.PR ---
Addendum To [facility] Progress Not Reason for addendum: Additonal documentation (patient was evaluated by hospice and the patient will be transferred to hospice care center. d/w the RN and previously ahd a lengthy discussion with the . time spent on discharge 35 min.) Redd Nick MD August 17, 2017 13:04
[2017-08-17] MEDS ORDERED: LORazepam 2 MG/ML VIAL IV ONE (13:30)
== END 2017-08-17 14:10 | disposition hospice, inpatient (51) | DRG 273 ==
LOC: PHED 15:00 → PHEDA 17:25 → HIME 22:40 → HIMN 08-09 22:40 → HIME 08-09 22:42 → HIMW 08-15 16:30
PROVIDERS: ADMIT Internal Medicine; ATTEND Internal Medicine
PROC: 02HV33Z Insertion of Infusion Device into Superior Vena Cava, Percutaneous Approach (ICD-10-PCS; 2017-08-10)
PROC: 4A023FZ Measurement of Cardiac Rhythm, Percutaneous Approach (ICD-10-PCS; 2017-08-13)
PROC: 4A0234Z Measurement of Cardiac Electrical Activity, Percutaneous Approach (ICD-10-PCS; 2017-08-13)
PROC: 02K83ZZ Map Conduction Mechanism, Percutaneous Approach (ICD-10-PCS; 2017-08-13)
PROC: 5A2204Z Restoration of Cardiac Rhythm, Single (ICD-10-PCS; 2017-08-13)
PROC: 4A023N8 Measurement of Cardiac Sampling and Pressure, Bilateral, Percutaneous Approach (ICD-10-PCS; 2017-08-13)
PROC: B244ZZZ Ultrasonography of Right Heart (ICD-10-PCS; 2017-08-13)
PROC: 0BH17EZ Insertion of Endotracheal Airway into Trachea, Via Natural or Artificial Opening (ICD-10-PCS; 2017-08-13)
PROC: 5A1935Z Respiratory Ventilation, Less than 24 Consecutive Hours (ICD-10-PCS; 2017-08-13)
PROC: 02583ZZ Destruction of Conduction Mechanism, Percutaneous Approach (ICD-10-PCS; principal; 2017-08-13 07:30)
PROC: 5A09457 Assistance with Respiratory Ventilation, 24-96 Consecutive Hours, Continuous Positive Airway Pressure (ICD-10-PCS; 2017-08-15)
DX: I48.92 Unspecified atrial flutter (principal); I50.23 Acute on chronic systolic (congestive) heart failure; J96.01 Acute respiratory failure with hypoxia; G93.41 Metabolic encephalopathy; I95.9 Hypotension, unspecified; I13.0 Hypertensive heart and chronic kidney disease with heart failure and stage 1 through stage 4 chronic kidney disease, or unspecified chronic kidney disease; E87.1 Hypo-osmolality and hyponatremia; E83.39 Other disorders of phosphorus metabolism; E83.51 Hypocalcemia; F32.9 Major depressive disorder, single episode, unspecified; F41.9 Anxiety disorder, unspecified; G89.29 Other chronic pain; Z79.01 Long term (current) use of anticoagulants; I48.91 Unspecified atrial fibrillation; M54.9 Dorsalgia, unspecified; I71.4 Abdominal aortic aneurysm, without rupture; E78.5 Hyperlipidemia, unspecified; I25.10 Atherosclerotic heart disease of native coronary artery without angina pectoris; M79.7 Fibromyalgia; K21.9 Gastro-esophageal reflux disease without esophagitis; N18.9 Chronic kidney disease, unspecified; E03.9 Hypothyroidism, unspecified; D72.829 Elevated white blood cell count, unspecified; E87.6 Hypokalemia; R00.1 Bradycardia, unspecified; R74.8 Abnormal levels of other serum enzymes
CPT/HCPCS: 36556; 36569; 36600; 70450; 70496; 70498; 71045; 74018; 74176; 76604; 76937; 80048; 80053; 80061; 81001; 82140; 82550; 82805; 82948; 83036; 83605; 83735; 83880; 84100; 84132; 84155; 84439; 84443; 84481; 84484; 85002; 85025; 85027; 85384; 85610; 85730; 86850; 86900; 86901; 87040; 87070; 87205; 87449; 87641; 87804; 92960; 93005; 93312; 93320; 93325; 93613; 93623; 93656; 93662; 94002; 94003; 94150; 94640; 94664; 94667; 94668; 95819; 96361; 96374; C1730; C1731; C1732; C1759; C1760; C1766; C2630; G0269; J0330; J0610; J1160; J1200; J1644; J1940; J2060; J2250; J2270; J2370; J2405; J2710; J2720; J3010; J3480; J7030; J7040; J7050; J7614; Q9967